=== PATIENT | female | born 1960 | race Caucasian/White ===

== ENCOUNTER 2016-10-23 12:29 | Observation (INO) | payer BC ==
[~2016-10-23] VITALS: Ht 154.9 cm; Wt 126.4 kg
[~2016-10-23 12:29] MED LIST: B-COTAB18 PO; CHOL100010 PO; DOCU100C31 PO; KRIL1000 PO; LEVO50TA6 PO; SERT1TAB88 PO; VITA100C4 PO
[2016-10-23] MEDS ORDERED: SODIUM CHLORIDE 0.9% 1000ML 1,000 ML IV STA (13:03)
[2016-10-23] MEDS ORDERED: ONDANSETRON INJ 2 MG/ML 2 ML VIAL IV STA ×2 (13:03→16:10)
[2016-10-23] MEDS ORDERED: NITROGLYCERIN 0.4 MG SL PER TAB CHARGE SL STA (13:03)
[2016-10-23] MEDS ORDERED: LORAZEPAM 2 MG/ML 1 ML VIAL IV STA (13:03)
[2016-10-23 13:28] LABS: BASO % 0.6 %; BASO ABS # 0.03 K/uL (0-0.2); COMPLETE YES; EOS % 4.1 %; HEMATOCRIT 38.3 % (37-47); IG% 0.4 %; LYMPH % 29.8 %; LYMPH ABS # 1.51 K/uL (1.2-3.4); MEAN CELL VOLUME 82.9 fL (80-100); MEAN CORPUSCULAR HEMOGLOBIN 28.1 pg (25-34); MEAN CORPUSCULAR HGB CONC 33.9 g/dl (32-36); MEAN PLATELET VOLUME 9.5 fL (7.4-10.4); MONO % 4.9 %; NEUT % 60.2 %; PLATELET COUNT 245 K/uL (130-400); RED BLOOD COUNT 4.62 M/uL (4.2-5.4); WHITE BLOOD COUNT 5.07 K/uL (4.8-10.8)
--- NOTE | 2016-10-23 13:37 | DIAGNOSTIC IMAGING REPORT ---
SINGLE VIEW CHEST CLINICAL HISTORY: Atypical chest pain. FINDINGS: An AP, portable, upright chest radiograph is compared to study dated 08/07/2016 and correlated with chest CT dated 07/06/2016. The examination is degraded by portable technique, apical lordotic positioning, and large body habitus. The cardiac silhouette is top normal for projection. The mediastinal contour is unremarkable. The lungs and pleural spaces are clear. Apparent increase in density at the lung bases is related to overlying breast tissue. No pneumothorax is seen. The bony thorax is grossly intact. Fusion hardware is partially seen in the lower cervical region. IMPRESSION: No active disease in the chest. Electronically signed by: Bulmaro Fraga M.D. 10/23/2016 1:36 PM
[2016-10-23 13:47] LABS: ALT/SGPT 26 U/L (12-78); AST/SGOT 14 U/L (15-37); BLOOD UREA NITROGEN 11 mg/dl (7-18); CALCIUM 8.6 mg/dl (8.5-10.1); CARBON DIOXIDE 30 mmol/L (21-32); CHLORIDE 104 mmol/L (98-107); CREATININE 0.76 mg/dl (0.60-1.20); GLUCOSE 103 mg/dl (70-99); POTASSIUM 3.8 mmol/L (3.5-5.1); SODIUM 140 mmol/L (136-145)
[2016-10-23 13:52] LABS: ALKALINE PHOSPHATASE 86 U/L (45-117); CKMB/CK RATIO 1.3 (0-3.0)
[2016-10-23] MEDS ORDERED: HYDROmorphone INJ 1 MG/ML SYR IV STA ×2 (14:02→16:10)
[2016-10-23] MEDS ORDERED: OPTIRAY 320 IV PRN (15:45)
--- NOTE | 2016-10-23 16:10 | DIAGNOSTIC IMAGING REPORT ---
CT ANGIOGRAM OF THE CHEST CLINICAL HISTORY: Atypical chest pain. COMPARISON STUDY: Chest CT scans dated 07/06/2016 and 07/31/2013. Chest x-ray dated 10/23/2016. Abdominal CT dated 01/04/2013. TECHNIQUE: Following the IV administration of 94 cc of Optiray 320, CT angiogram of the chest was performed from the upper abdomen to the thoracic inlet utilizing the pulmonary embolus protocol. Images are reviewed in the axial, sagittal, and coronal planes. 3-D MIPS images are created and assessed. IV contrast was administered without complication. CT DOSE: 715.38 mGy.cm FINDINGS: Thyroid: Atrophic. Thoracic aorta: The thoracic aorta is normal in caliber and demonstrates standard 3-vessel arch anatomy. No dissection is seen. Pulmonary vasculature: The pulmonary trunk is normal in caliber. There are no filling defects identified in main, lobar, or segmental pulmonary branches to suggest pulmonary embolus. Heart: The heart is normal in size and configuration, and without pericardial effusion. Lungs and pleural spaces: The lungs and pleural spaces are clear. Mediastinum: There is no mediastinal lymphadenopathy. Kati: Clear. Axillae: There is no axillary lymphadenopathy. Upper abdomen: There is a small hiatal hernia. A 1.8 cm retroperitoneal nodule posterior to the adrenal gland is unchanged from multiple prior studies dating back to 2012 and is of indeterminant significance. The liver appears steatotic. Skeletal structures: The skeletal structures are osteopenic. No lytic or blastic bony lesions are seen. Fusion hardware is partially imaged in the lower cervical spine. Mild degenerative changes noted in the thoracic spine. IMPRESSION: 1. There is no evidence of pulmonary embolus in the main, lobar, or segmental pulmonary arteries. 2. Note that the patient has had 18 CT scans of the chest at this institution since 2007 for similar symptoms with no evidence of pulmonary embolus. This should be taken into consideration in the future given cumulative radiation dosages. 3. There is no airspace consolidation or pleural effusion. 4. Additional findings as above. Electronically signed by: Bulmaro Fraga M.D. 10/23/2016 4:08 PM
--- NOTE | 2016-10-23 16:26 | EMERGENCY ROOM VISIT NOTE ---
History Report prepared by Macrina: Stew Boyd Under the Supervision of: Dr. Dequan Miller M.D. First contact with patient: 12:53 Chief Complaint: ABDOMINAL PAIN Stated Complaint: CHEST PRESSURE, ABD PAIN Nursing Triage Summary: Triage Note: Pt ambulatory to triage. pt reports mid back pain upper abd pain and chest pressure." pt reports pain since this am "i don't know what time i was up about 4am." pt reports shortness of breath. History of Present Illness The patient is a 56 year old female who presents to the Emergency Room with complaints of constant chest pain beginning this morning. She describes the pain as a feeling of "pressure". She states that her pain radiates into her abdomen and armpits. The patient has a history of anxiety and states that she took her anxiety medication last night. She has associated back pain, SOB, and nausea. She states that she woke up with her pain this morning. The patient has a history of similar symptoms in the past, but no specific cause was identified. She has no history of heart problems. Source of History: patient Onset: this morning Position: chest Quality: pressure Timing: constant Associated Symptoms: + SOB, + abdominal pain, + back pain, + nausea Review of Systems See HPI for pertinent positives & negatives. A total of 10 systems reviewed and were otherwise negative. Past Medical & Surgical Medical Problems: (1) Anxiety (2) Chest pain (3) Hypothyroidism (4) Spinal stenosis (5) Uterine artery ablation Surgical Problems: (1) History of carpal tunnel surgery of left wrist (2) History of carpal tunnel surgery of right wrist (3) S/P appendectomy (4) S/P cervical spinal fusion (5) S/P lumbar spinal fusion (6) S/P partial hysterectomy (7) S/P tubal ligation Family History Cancer Diabetes mellitus Heart disease Hypertension Lung disease Social History Smoking Status: Never Smoker Alcohol Use: none Drug Use: none Marital Status: Housing Status: lives with family Occupation Status: employed Current/Historical Medications Scheduled B-Complex Vitamins (Vitamin B Complex), 1 TAB PO DAILY Cholecalciferol (Vitamin D), 1,000 INTER.UNIT PO DAILY Clonazepam (Clonazepam), 0.5 MG PO HS Coenzyme Q10 (Ubidecarenone) (Co Q-10), 75 MG PO DAILY Krill Oil (Krill Oil), 1 CAP PO DAILY Levothyroxine Sodium (Levothyroxine Sodium), 50 MCG PO DAILY Tocopheryl Acet,Dl-Alpha (Vitamin E), 100 INTER.UNIT PO DAILY Scheduled PRN Acetaminophen (Tylenol), 1,000 MG PO Q6H PRN for Pain or Fever Diphenoxylate W/ Atropine (Lomotil), 1-2 TABS PO UD PRN for Diarrhea Docusate Sodium (Docusate Sodium), 200 MG PO BID PRN for Constipation Loratadine (Claritin), 10 MG PO DAILY PRN for Allergy Symptoms Saline ([place] Nasal [place]), 2 SPRAYS LAI DAILY PRN for Nasal Dryness Allergies Coded Allergies: Sulfa Antibiotics (Verified Allergy, Mild, UNKNOWN, 08/07/16) Diphenhydramine (Verified Allergy, Unknown, in IV form only, 08/07/16) Levofloxacin (Unverified Allergy, Unknown, RASH, 08/07/16) Quinolones (Verified Allergy, Unknown, 08/07/16) Wheat (Unverified Allergy, Unknown, adverse reaction, 08/07/16) Prednisone (Verified Adverse Reaction, Intermediate, PSYCH COMPLICATIONS, 08/07/16) Tramadol (Verified Adverse Reaction, Intermediate, "OUT OF BODY", 08/07/16 ) Physical Exam Vital Signs Date Time Temp Pulse Resp B/P Pulse Ox O2 Delivery O2 Flow Rate FiO2 10/23/16 17:04 85 13 98 10/23/16 17:01 94 Room Air 10/23/16 16:29 87 16 107/74 94 10/23/16 15:59 84 14 112/70 98 10/23/16 15:55 110/78 10/23/16 14:59 74 104/67 98 10/23/16 14:29 91 108/66 98 10/23/16 13:59 90 104/67 98 10/23/16 13:45 93 10/23/16 13:32 111/68 10/23/16 13:29 94 20 99 10/23/16 13:28 127/71 10/23/16 13:26 120/70 10/23/16 12:32 37.2 105 20 114/78 97 Room Air Physical Exam GENERAL: Patient is anxious appearing and in moderate distress. HEENT: No acute trauma, normocephalic atraumatic, mucous membranes moist, no nasal congestion, no scleral icterus. NECK: No stridor, no adenopathy, no meningismus, trachea is midline. LUNGS: No dyspnea. Clear to auscultation and equal bilaterally. No wheeze, no rhonchi. HEART: Regular rate and rhythm. No murmurs, rubs, gallops appreciated. ABDOMEN: Tenderness to palpation over the sternum and epigastrium. Soft, bowel sounds positive, no masses appreciated, no peritonitis. BACK: No midline tenderness, no CVA tenderness EXTREMITIES: Normal motion all extremities, no cyanosis, no edema. NEUROLOGIC: Alert and oriented, no acute motor or sensory deficits, no focal weakness, cranial nerves grossly intact. SKIN: No rash, no jaundice, no diaphoresis. Medical Decision & Procedures ER Provider Diagnostic Interpretation: X ray results and stated below per my interpretation and radiologist interpretation. Other radiology results and stated below per my review and radiologist interpretation: SINGLE VIEW CHEST FINDINGS: An AP, portable, upright chest radiograph is compared to study dated 08/07/2016 and correlated with chest CT dated 07/06/2016. The examination is degraded by portable technique, apical lordotic positioning, and large body habitus. The cardiac silhouette is top normal for projection. The mediastinal contour is unremarkable. The lungs and pleural spaces are clear. Apparent increase in density at the lung bases is related to overlying breast tissue. No pneumothorax is seen. The bony thorax is grossly intact. Fusion hardware is partially seen in the lower cervical region. IMPRESSION: No active disease in the chest. Electronically signed by: Bulmaro Fraga M.D. CT ANGIOGRAM OF THE CHEST FINDINGS: Thyroid: Atrophic. Thoracic aorta: The thoracic aorta is normal in caliber and demonstrates standard 3-vessel arch anatomy. No dissection is seen. Pulmonary vasculature: The pulmonary trunk is normal in caliber. There are no filling defects identified in main, lobar, or segmental pulmonary branches to suggest pulmonary embolus. Heart: The heart is normal in size and configuration, and without pericardial effusion. Lungs and pleural spaces: The lungs and pleural spaces are clear. Mediastinum: There is no mediastinal lymphadenopathy. Kati: Clear. Axillae: There is no axillary lymphadenopathy. Upper abdomen: There is a small hiatal hernia. A 1.8 cm retroperitoneal nodule posterior to the adrenal gland is unchanged from multiple prior studies dating back to 2012 and is of indeterminant significance. The liver appears steatotic. Skeletal structures: The skeletal structures are osteopenic. No lytic or blastic bony lesions are seen. Fusion hardware is partially imaged in the lower cervical spine. Mild degenerative changes noted in the thoracic spine. IMPRESSION: 1. There is no evidence of pulmonary embolus in the main, lobar, or segmental pulmonary arteries. 2. Note that the patient has had 18 CT scans of the chest at this institution since 2007 for similar symptoms with no evidence of pulmonary embolus. This should be taken into consideration in the future given cumulative radiation dosages. 3. There is no airspace consolidation or pleural effusion. 4. Additional findings as above. Electronically signed by: Bulmaro Fraga M.D. Laboratory Results 10/23/16 13:12 Red Blood Count 4.62, Mean Corpuscular Volume 82.9, Mean Corpuscular Hemoglobin 28.1, Mean Corpuscular Hemoglobin Concent 33.9, Mean Platelet Volume 9.5, Neutrophils (%) (Auto) 60.2, Lymphocytes (%) (Auto) 29.8, Monocytes (%) (Auto) 4.9, Eosinophils (%) (Auto) 4.1, Basophils (%) (Auto) 0.6, Neutrophils # (Auto) 3.05, Lymphocytes # (Auto) 1.51, Monocytes # (Auto) 0.25, Eosinophils # (Auto) 0.21, Basophils # (Auto) 0.03 10/23/16 13:12 Test 10/23/16 13:12 10/23/16 16:40 White Blood Count 5.07 K/uL (4.8-10.8) Red Blood Count 4.62 M/uL (4.2-5.4) Hemoglobin 13.0 g/dL (12.0-16.0) Hematocrit 38.3 % (37-47) Mean Corpuscular Volume 82.9 fL (80-100) Mean Corpuscular Hemoglobin 28.1 pg (25-34) Mean Corpuscular Hemoglobin Concent 33.9 g/dl (32-36) Platelet Count 245 K/uL (130-400) Mean Platelet Volume 9.5 fL (7.4-10.4) Neutrophils (%) (Auto) 60.2 % Lymphocytes (%) (Auto) 29.8 % Monocytes (%) (Auto) 4.9 % Eosinophils (%) (Auto) 4.1 % Basophils (%) (Auto) 0.6 % Neutrophils # (Auto) 3.05 K/uL (1.4-6.5) Lymphocytes # (Auto) 1.51 K/uL (1.2-3.4) Monocytes # (Auto) 0.25 K/uL (0.11-0.59) Eosinophils # (Auto) 0.21 K/uL (0-0.5) Basophils # (Auto) 0.03 K/uL (0-0.2) RDW Standard Deviation 42.6 fL (36.4-46.3) RDW Coefficient of Variation 14.2 % (11.5-14.5) Immature Granulocyte % (Auto) 0.4 % Immature Granulocyte # (Auto) 0.02 K/uL (0.00-0.02) Prothrombin Time 10.1 SECONDS (9.0-12.0) Prothromb Time International Ratio 0.9 (0.9-1.1) D-Dimer 890 ug/L FEU (0-500) Anion Gap 6.0 mmol/L (3-11) Est Creatinine Clear Calc Drug Dose 105.2 ml/min Estimated GFR () 102.3 Estimated GFR (Non- 88.3 BUN/Creatinine Ratio 14.0 (10-20) Calcium Level 8.6 mg/dl (8.5-10.1) Total Bilirubin 0.4 mg/dl (0.2-1) Direct Bilirubin < 0.1 mg/dl (0-0.2) Aspartate Amino Transf (AST/SGOT) 14 U/L (15-37) Alanine Aminotransferase (ALT/SGPT) 26 U/L (12-78) Alkaline Phosphatase 86 U/L (45-117) Total Creatine Kinase 53 U/L (26-192) Creatine Kinase MB 0.7 ng/ml (0.5-3.6) Creatine Kinase MB Ratio 1.3 (0-3.0) Troponin I < 0.015 ng/ml (0-0.045) Total Protein 7.9 gm/dl (6.4-8.2) Albumin 3.5 gm/dl (3.4-5.0) Lipase 193 U/L (73-393) Hepatitis C Antibody Screen NEG (NEG) Bedside Troponin I 0.000 ng/ml (0-0.045) Laboratory results as reviewed by me. Medications Administered Medications (Trade) Dose Ordered Sig/Abbi Route Start Time Stop Time Status Last Admin Dose Admin Nitroglycerin (Nitrostat Tab) 0.4 mg PRN STAT SL 10/23/16 13:03 10/23/16 13:05 DC 10/23/16 13:03 0.4 MG Lorazepam (Ativan Inj) 1 mg NOW STAT IV 10/23/16 13:03 10/23/16 13:05 DC 10/23/16 13:30 1 MG Ondansetron HCl 4 mg 4 mg NOW STAT IV 10/23/16 13:03 10/23/16 13:05 DC 10/23/16 13:30 4 MG Sodium Chloride (Nss 1000ml) 1,000 ml @ 999 mls/hr Q1H1M STAT IV 10/23/16 13:03 10/23/16 14:03 DC 10/23/16 13:03 999 MLS/HR Hydromorphone HCl (Dilaudid Inj) 1 mg NOW STAT IV 10/23/16 14:02 10/23/16 14:03 DC 10/23/16 14:06 1 MG Hydromorphone HCl (Dilaudid Inj) 1 mg NOW STAT IV 10/23/16 16:10 10/23/16 16:12 DC 10/23/16 16:10 1 MG Ondansetron HCl (Zofran Inj) 4 mg NOW STAT IV 10/23/16 16:10 10/23/16 16:12 DC 10/23/16 16:10 4 MG ECG Indication: chest pain Rate (beats per minute): 86 Rhythm: normal sinus Findings: no acute ischemic change, no ectopy ED Course 1257: The patient was evaluated in room A12. A complete history and physical exam was performed. 1303: Ordered NSS 1000 mL @ 999 mL/hr IV, Zofran 4 mg IV, Ativan 1 mg IV, Nitrostat Tab 0.4 mg SL. 1402: I checked in on the patient. Her chest pain is unchanged, but she has developed a headache. Ordered Dilaudid 1 mg IV. 1608: I reassessed the patient. Her chest pain has returned. She would not like any nitroglycerin for the pain as she believes it caused her headache. The patient states that she is willing to consider admission to the hospital. 1610: Ordered Zofran Inj 4 mg IV, Dilaudid Inj 1 mg IV. 1623: Upon reevaluation, the patient is resting comfortably. Discussed results and treatment plan with the patient. She verbalized understanding and agreement with the treatment plan. The patient will be evaluated for further management. Medical Decision Differential: Cholecystitis, Gallbladder disfunction, Hepatic Disfunction, Gastritis/PUD, Pancreatitis, ACS, Aortic Pathology, amongst other pathologies entertained. 56 yr old female arrives very uncomfortable and complaining of substernal chest pressure radiating to left arm and epigastrium. Continued intractable pain and with elevated Dimer I feel no other choice than to do CTPE even though she has had many CTs in past. CT unremarkable fortunately. Persistent pain though won' t take further nitro due to headache from it. I suspect this is not acs as she has multiple previous cardiac rule outs but with her comorbidities I do not feel it is reasonable to just send her home. EKG x 2 and Trop x 2 negative for ischemia here in ED. Abdomen is benign and I do not feel this is surgical abdominal in nature. No evidence of dissection. Consults Time Called: 162 Consulting Physician: Dr. Alegre [place] [place] Returned Call: 1623 Discussed the patient's case. The patient will be evaluated for further treatment and disposition. Impression Primary Impression: Substernal chest pain Additional Impressions: Nausea, Intractable pain Scribe Attestation The scribe's documentation has been prepared under my direction and personally reviewed by me in its entirety. I confirm that the note above accurately reflects all work, treatment, procedures, and medical decision making performed by me. Departure Information Dispostion Being Evaluated By Hospitalist Anali Vanessa (PCP) Patient Instructions A Signature Page, My [facility]
[2016-10-23 17:01] VITALS: O2SAT 94; Ht 154.9 cm; Wt 126.4 kg
[2016-10-23] MEDS ORDERED: ACETAMINOPHEN 325 MG TAB PO PRN (17:30)
[2016-10-23] MEDS ORDERED: ALUMINUM/MAGNESIUM/SIMETH (MAALOX MAX) 30 ML UDC PO PRN (17:30)
[2016-10-23 18:23] VITALS: BP 121/67; PULSE 81; TEMP 36.9; O2SAT 98
[2016-10-23 18:57] LABS: INR 0.9 (0.9-1.1); PROTHROMBIN TIME (PATIENT) 10.1 SECONDS (9.0-12.0)
[2016-10-23] MEDS: OXYCODONE/ACETAMINOPHEN 5-325 TAB PO PRN (20:34)
[2016-10-23] MEDS ORDERED: IV FLUIDS COMPLETED PRN (20:45)
[2016-10-23] MEDS ORDERED: CLONAZEPAM 0.5 MG TAB PO SCH (21:00)
[2016-10-23] MEDS ORDERED: ENOXAPARIN 40 MG/0.4 ML SYR SQ SCH (21:00)
[2016-10-23] MEDS ORDERED: NURSING VERBAL MED ORDER ONE (21:45)
[2016-10-23] MEDS: HYDROmorphone INJ 1 MG/ML SYR IV PRN (23:14)
--- NOTE | 2016-10-23 23:57 | HISTORY & PHYSICAL EXAMINATION ---
DATE OF ADMISSION: 10/23/2016 CHIEF COMPLAINT: Chest pain. HISTORY OF PRESENT ILLNESS: This 56-year-old female patient awoke this morning and had pain that was in her left chest, in her upper abdomen and radiated into her armpit. She does have a history of anxiety and took anxiety medication the previous night. She had not eaten yet this morning, just simply took her levothyroxine. She does have associated back pain, shortness of breath and nausea. The patient has had a history of similar symptoms in the past and no specific cause was identified. She has no history of heart problems and had been seen by cardiology. PAST MEDICAL HISTORY: Significant for anxiety, hypothyroidism, spinal stenosis. PAST SURGERIES: Include uterine artery ablation, carpal tunnel of the left, carpal tunnel of the right, appendectomy, cervical spinal fusion, lumbar spinal fusion, partial hysterectomy, tubal ligation. FAMILY HISTORY: Consistent with cancer, diabetes, heart disease, hypertension, lung disease. SOCIAL HISTORY: The patient is , lives with her . She is employed. Does not smoke, does not use alcohol, no illicit substances. CURRENT HOME MEDICATIONS: Include vitamin B, vitamin D, clonazepam 0.5 mg at bedtime, coenzyme Q10 75 mg daily, Krill oil 1 capsule daily, levothyroxine 50 mcg daily, vitamin E daily, Tylenol p.r.n., Lomotil p.r.n. diarrhea, docusate sodium p.r.n. constipation, Claritin 10 mg p.r.n. allergy symptoms and Morales-Sanchez nasal spray for nasal dryness. ALLERGIES: SHE HAS LISTED ALLERGIES TO SULFA, DIPHENHYDRAMINE, LEVOFLOXACIN, QUINOLONES, WHEAT, PREDNISONE AND TRAMADOL. REVIEW OF SYSTEMS: A complete 10-system review was performed, all of which were negative. I put positives in the HPI. PHYSICAL EXAMINATION: VITAL SIGNS: Temperature 37.2, pulse ranged from 74-105, respirations 16, blood pressure 114/78, pulse ox 97-99% on room air. GENERAL: The patient is awake, alert and oriented x3. The ER physician noted that she appeared anxious, but when I saw her, she was much more relaxed, had some relief of the pain. HEENT: TMs intact. No inflammation. Extraocular muscles intact. Pupils equal, round and react to light and accommodation. Mucous membranes moist. Throat is clear. NECK: No JVD or lymphadenopathy. LUNGS: Clear to auscultation bilaterally. No rales, rhonchi or wheezes. HEART: Regular, normal S1, S2, without murmurs, rubs or gallops. ABDOMEN: Soft, nontender, nondistended, positive bowel sounds. Over the sternum and epigastrium, I was able to elicit tenderness with palpation. EXTREMITIES: No clubbing, cyanosis or edema. NEUROLOGIC: Cranial nerves II-XII are grossly intact and nonfocal. SKIN: Show no rashes, no diaphoresis. PSYCHIATRIC: The patient is pleasant, cooperative, and again, did not show signs of anxiety as I was seeing her. IMAGING: A CT of the chest showed impression of: 1. There is no evidence of pulmonary embolus in the main, lobar or segmental pulmonary arteries. 2. Note that the patient has had 18 CT scans of the chest at this institution since 2007 for similar symptoms with no evidence of pulmonary embolus. This should be taken into consideration in the future given the cumulative radiation dosages. 3. There is no airspace consolidation or pleural effusion. 4. Additional findings noted above. Chest x-ray reveals no active disease in the chest. LABORATORY DATA: Sodium 140, potassium 3.8, chloride 104, CO2 30, BUN 11, creatinine 0.76. ALT of 14, AST of 26. Troponin was less than 0.015. Lipase 193. D-dimer was elevated at 890. INR of 0.9. White count 5.07, hemoglobin 13.0, hematocrit 38.3, platelet count of 245,000. Hep C screen was negative. ASSESSMENT: The patient is assessed as chest pain, rule out myocardial infarction, although this seems to be musculoskeletal in nature. PLAN: She is continued on appropriate home medications and given sublingual nitroglycerin, pain and nausea control, DVT prophylaxis in the form of subcu Lovenox, TEDs and SCDs. She is made 23-hour observation in that if her troponins remain negative and her symptoms resolve, she will be able to be discharged in the morning.
[2016-10-24] VITALS (7 sets, daily range): BP systolic 94–120; BP diastolic 54–68; PULSE 80–87; TEMP 36.8–37; O2SAT 96–98
[2016-10-24] MEDS: HYDROmorphone INJ 1 MG/ML SYR IV PRN ×2 (03:24→16:22)
[2016-10-24] MEDS: ONDANSETRON INJ 2 MG/ML 2 ML VIAL IV PRN ×2 (03:53→17:47)
[2016-10-24] MEDS ORDERED: LEVOTHYROXINE 50 MCG TAB PO SCH (06:30)
[2016-10-24] MEDS: OXYCODONE/ACETAMINOPHEN 5-325 TAB PO PRN (08:11)
[2016-10-24] MEDS ORDERED: PANTOprazole SOD 40 MG TAB PO SCH (09:00)
--- NOTE | 2016-10-24 13:25 | Pharmacy Progress Note ---
Enoxaparin Dosing Consult Date of Service: Oct 24, 2016. Pharmacy Dosing Scope Pharmacy is consulted to review the use of enoxaparin in a special risk patient population possibly prone to accumulate drug: elderly & to initiate recommend change in the setting of ordered THERAPEUTIC enoxaparin sub-q dosing therapy, order appropriate labs and adjust drug/dose/frequency. Subjective The patient is a 56 year old female admitted on Oct 23, 2016 at 17:18 for Chest Pain. Patient is currently on day # 2 of THERAPEUTIC enoxaparin sub-q for ACTIVE DVT/ PE. Pertinent PMH: hypertension, congestive heart failure, age > 75 years Objective Height (Feet): 5 Height (Inches): 1.00 Weight (Kilograms): 126.400 Laboratory Results: Last 72 Hours Test 10/23/16 13:12 Alanine Aminotransferase (ALT/SGPT) 26 U/L Aspartate Amino Transf (AST/SGOT) 14 U/L D-Dimer 890 ug/L FEU Direct Bilirubin < 0.1 mg/dl White Blood Count 5.07 K/uL Red Blood Count 4.62 M/uL Hemoglobin 13.0 g/dL Hematocrit 38.3 % Mean Corpuscular Volume 82.9 fL Mean Corpuscular Hemoglobin 28.1 pg Mean Corpuscular Hemoglobin Concent 33.9 g/dl Platelet Count 245 K/uL Mean Platelet Volume 9.5 fL Neutrophils (%) (Auto) 60.2 % Lymphocytes (%) (Auto) 29.8 % Monocytes (%) (Auto) 4.9 % Eosinophils (%) (Auto) 4.1 % Basophils (%) (Auto) 0.6 % Neutrophils # (Auto) 3.05 K/uL Lymphocytes # (Auto) 1.51 K/uL Monocytes # (Auto) 0.25 K/uL Eosinophils # (Auto) 0.21 K/uL Basophils # (Auto) 0.03 K/uL Prothromb Time International Ratio 0.9 Total Bilirubin 0.4 mg/dl Assessment & Plan Regarding THERAPEUTIC Enoxaparin: Continue enoxaparin 70 mg sub-q every 12 hours based on review of the following special population risk factors for drug accumulation: elderly or estimated creatinine clearance of 40 mL/min. Labs: * Will order Peak Anti-factor Xa level to be drawn 4 hours after 7 doses to better assess drug elimination & review potential for drug accumulation. Goal Peak Anti-factor Xa level = 0.5-1.0 IU/mL for therapeutic Lovenox 1 mg/kg. * Ongoing Labs (P&T Approved): CBC q 2 days x 2 weeks, serum creat q 2 days We will continue to monitor this patient and make adjustments as needed. Thank you.
[2016-10-24] MEDS ORDERED: SUMATRIPTAN SUCCINATE 6 MG/0.5 ML VIAL SQ ONE (13:30)
--- NOTE | 2016-10-24 14:00 | Hospitalist Progress Note ---
Hospitalist Progress Note Date of Service Oct 24, 2016. Subjective Pt evaluation today including: conversation w/ patient, conversation w/ family , physical exam, chart review, lab review, review of studies Patient is complaining of migraine headache today. She is not able to take anything orally due to a scheduled Hida scan this afternoon. Her troponin was negative x3. Additional Comments: A 10 system review was performed and all were negative. Positives were placed in the subjective section. Objective Vital Signs Date Time Temp Pulse Resp B/P Pulse Ox O2 Delivery O2 Flow Rate FiO2 10/24/16 11:36 36.9 84 18 94/54 97 Room Air 10/24/16 08:00 98 Room Air 10/24/16 07:19 36.9 87 18 120/64 98 Room Air 10/24/16 05:00 37.0 81 20 102/64 97 Room Air 10/24/16 04:58 Room Air 10/24/16 00:11 36.8 80 20 117/68 96 Room Air 10/24/16 00:00 Room Air 10/23/16 20:00 Room Air 10/23/16 18:23 36.9 81 18 121/67 98 Room Air 10/23/16 18:04 37.2 90 13 107/74 100 10/23/16 17:34 90 13 100 10/23/16 17:22 82 10/23/16 17:04 85 13 98 10/23/16 17:01 94 Room Air 10/23/16 16:29 87 16 107/74 94 10/23/16 15:59 84 14 112/70 98 10/23/16 15:55 110/78 10/23/16 14:59 74 104/67 98 10/23/16 14:29 91 108/66 98 10/23/16 13:59 90 104/67 98 Physical Exam Notes: GEN: Awake, alert, and oriented x 3. Not in acute distress HEENT: Tm's intact, no inflammation, EOMI, PERRLA, MMM Neck: Soft, supple Lungs: CTA b/l, no r/r/w Heart: REG, nrl S1S2 without murmurs, rubs or gallops Abdomen: Soft, NT, ND, + BS EXT: No C/C/E NEURO: CN's II-XII grossly intact, non-focal Skin: warm, dry, no rashes PSYCH: pleasant, cooperative. Laboratory Results Last 24 Hours Test 10/23/16 16:40 10/23/16 21:05 10/24/16 02:50 Bedside Troponin I 0.000 ng/ml Troponin I < 0.015 ng/ml < 0.015 ng/ml Assessment and Plan 1) Atypical chest pain - Mi was ruled out. It appeared to have musculoskeletal components. I ordered a Hida scan which is to be performed shortly. 2) Migraine headache - I ordered a single dose of Imitrex. 3) HTN - stable 120/64 4) Anxiety disorder 5) DVT prophylaxis - TEDs, SCDs, and sub-q Lovenox.
[2016-10-24] MEDS ORDERED: SINCALIDE INJ 2.5 MCG in SODIUM CHLORIDE 0.9% 100ML 100 ML IV SCH (14:15)
--- NOTE | 2016-10-24 16:30 | DIAGNOSTIC IMAGING REPORT ---
NUCLEAR MEDICINE HEPATOBILIARY STUDY WITH EJECTION FRACTION ANALYSIS. CLINICAL HISTORY: Epigastric pain. COMPARISON STUDY: Biliary ultrasound dated 07/06/2016 FINDINGS: The patient was injected with 5.6 mCi of technetium 99m Choletec. Anterior imaging was performed. The gallbladder was first visualized at 10 minute image. There was normal passage of activity into small bowel. At 1 hour, the patient was administered 2.5 mcg of sincalide utilizing a 30 minute infusion. The gallbladder ejection fraction was normal measuring 86%. IMPRESSION: Normal study. No evidence of cystic duct obstruction. Normal gallbladder ejection fraction of 86% Electronically signed by: Terrance Sanders M.D. 10/24/2016 4:29 PM
--- NOTE | 2016-10-24 17:17 | Discharge Instructions ---
Discharge Instructions Admission Reason for Admission: Chest Pain Discharge Discharge Diagnosis / Problem: Chest pain Discharge Goals Goal(s): Decrease discomfort Activity Recommendations Activity Limitations: resume your previous activity . Instructions / Follow-Up Instructions / Follow-Up PCP in 5-7 days. Current Hospital Diet Patient's current hospital diet: AHA Diet (Heart Healthy) Discharge Diet Recommended Diet: AHA Diet (Heart Healthy) Pending Studies Studies pending at discharge: no Medical Emergencies . Who to Call and When: Medical Emergencies: If at any time you feel your situation is an emergency, please call 911 immediately. . Non-Emergent Contact Non-Emergency issues call your: Primary Care Provider . . "Provider Documentation" section prepared by Antolin Alegre. VTE Core Measure Inpt VTE Proph given/why not?: Enoxaparin (Lovenox)DANIS, T.ESonam. Valarie, SCD's
--- NOTE | 2016-10-24 17:27 | Discharge Summary ---
Discharge Summary Admission Date: Oct 23, 2016 at 17:18 Discharge Date: Oct 24, 2016 Discharge Disposition: Home Principal Diagnosis: Chest pain Problems/Secondary Diagnoses: GERD, anxiety Immunizations: Have You Had Influenza Vaccine: Yes Influenza Vaccine Date: Aug 05, 2015 History of Tetanus Vaccine?: Yes Tetanus Immunization Date: Aug 18, 2010 History of Pneumococcal: Yes Pneumococcal Date: Jul 19, 2013 History of Hepatitis B Vaccine: Unknown Procedures: None. Consultations: None. Medication Reconciliation Continued Medications: Acetaminophen (Tylenol) 500 Mg Tab 1000 MG PO Q6H PRN for Pain or Fever, TAB B-Complex Vitamins (Vitamin B Complex) 1 Tab Tab 1 TAB PO DAILY Cholecalciferol (Vitamin D) 1,000 Inter.unit Tab 1000 INTER.UNIT PO DAILY, TAB Clonazepam (Clonazepam) 0.5 Mg Tab 0.5 MG PO HS Coenzyme Q10 (Ubidecarenone) (Co Q-10) 75 Mg Cap 75 MG PO DAILY, CAP Diphenoxylate W/ Atropine (Lomotil) 1 Tab Tab 1-2 TABS PO UD PRN for Diarrhea Take 2 tablets at onset of diarrhea then 1 tablet after each episode. Maximum 8 tablets/day. Docusate Sodium (Docusate Sodium) 100 Mg Cap 200 MG PO BID PRN for Constipation, CAP Krill Oil (Krill Oil) 1 Cap Cap 1 CAP PO DAILY Levothyroxine Sodium (Levothyroxine Sodium) 50 Mcg Tab 50 MCG PO DAILY Loratadine (Claritin) 10 Mg Tab 10 MG PO DAILY PRN for Allergy Symptoms Saline ([place] Nasal [place]) 0.65 % Spr 2 SPRAYS LAI DAILY PRN for Nasal Dryness Tocopheryl Acet,Dl-Alpha (Vitamin E) 100 Inter.unit Cap 100 INTER.UNIT PO DAILY, CAP Discharge Exam See my hospitalist progress note from this same date for the ROS and physical exam. Hospital Course The patient presented with chest pain that she had awoke with in the morning. Her d-dimer was elevated which prompted a CTA of the chest. No PE was noted. She was made 23hr obs to rule out IN. Her serial troponin were negative x3. I did order a Hida scan to evaluate for gallbladder dysfunction. Her gallbladder ejection fraction was 86%. She had no further chest pain and was discharged to home. 1) Atypical chest pain - Mi was ruled out. It appeared to have musculoskeletal components. I ordered a Hida scan which is to be performed shortly. DVT prophylaxis - TEDs, SCDs, and sub-q Lovenox. Total Time Spent: Greater than 30 minutes This includes examination of the patient, discharge planning, medication reconciliation, and communication with other providers. Discharge Instructions Please refer to the electronic Patient Visit Report (Discharge Instructions) for additional information. Follow-Up PCP in 5-7 days.
[2017-04-06] MEDS ORDERED: COEN75CA PO (08:24)
[2017-04-06] MEDS ORDERED: ATV5X PO (08:26)
[2017-04-06] MEDS ORDERED: DPH/ PO (09:07)
[2017-04-06] MEDS ORDERED: SALI0.6510 NAE (09:07)
[2017-04-06] MEDS ORDERED: CLR10 PO (09:07)
[2017-04-06] MEDS ORDERED: TYLOTC500 PO (12:15)
[2017-04-06] MEDS ORDERED: MULTTAB58 PO (12:19)
[2017-04-11] MEDS ORDERED: CEFD300C2 PO (08:27)
[2017-04-11] MEDS ORDERED: LCTXP PO (08:27)
[2017-05-13] MEDS ORDERED: DIPH50TA10 PO (14:15)
[2017-05-13] MEDS ORDERED: PROC1TAB5 PO (14:15)
[2017-05-13] MEDS ORDERED: DICL50TA3 PO (14:15)
[2017-07-14] MEDS ORDERED: TURM500T PO (14:14)
== END 2016-10-24 18:00 | disposition home or self-care (01) ==
LOC: ENRESERVTM → ENRESERVDT → C.EDB 12:30 → C.MED 17:18
PROVIDERS: ADMIT Hospitalist; ATTEND Hospitalist
DX: R07.89 Other chest pain (principal); K21.9 Gastro-esophageal reflux disease without esophagitis; F41.9 Anxiety disorder, unspecified; R79.1 Abnormal coagulation profile; G43.909 Migraine, unspecified, not intractable, without status migrainosus; I10 Essential (primary) hypertension; E03.9 Hypothyroidism, unspecified; Z51.81 Encounter for therapeutic drug level monitoring; Z79.899 Other long term (current) drug therapy

== ENCOUNTER 2017-02-08 09:21 | Emergency (ER) | payer BC ==
[~2017-02-08] VITALS: Ht 154.9 cm; Wt 128.8 kg
[~2017-02-08 09:21] MED LIST changes: -SERT1TAB88 PO
[2017-02-08 09:32] VITALS: TEMP 36.9; Ht 154.9 cm; Wt 128.8 kg
[2017-02-08] MEDS ORDERED: ONDANSETRON INJ 2 MG/ML 2 ML VIAL IV STA (09:47)
[2017-02-08] MEDS ORDERED: MoRPHine SULFATE 4 MG/ML 1 ML CARP\\VIAL IV STA (09:47)
--- NOTE | 2017-02-08 09:54 | EMERGENCY ROOM VISIT NOTE ---
History Report prepared by Macrina: Beryl Mejia Under the Supervision of: Dr. Emery Choi M.D. First contact with patient: 09:37 Chief Complaint: SHORTNESS OF BREATH Stated Complaint: SOB, PAIN UNDER BACK RIBS, FEVER, ABD. PAIN, PALPI History of Present Illness The patient is a 56 year old female who presents to the Emergency Room with complaints of persistent right upper quadrant abdominal pain that began a few days ago. She currently rates her discomfort as an 8/10 in severity. The patient states that she developed the abdominal pain a few days ago and additionally notes right sided back pain. She additionally associates rib pain and states that her body feels swollen. The patient denies any recent fall or trauma. She associates palpitations, shortness of breath, and an intermittent subjective fever with her symptoms today. The patient denies any history of heart problems or blood clots. She denies being on any blood thinners. The patient denies any cough, chest pain, hematuria, vaginal bleeding, or vaginal discharge. Source of History: patient, spouse/significant other Onset: few days ago Position: abdomen (RUQ) Symptom Intensity: 8/10 Timing: other (persistent) Associated Symptoms: + SOB, + back pain, No chest pain, No cough, No urinary symptoms Note: Associated Symptoms: rib pain, palpitations Review of Systems See HPI for pertinent positives & negatives. A total of 10 systems reviewed and were otherwise negative. Past Medical & Surgical Medical Problems: (1) Anxiety (2) Chest pain (3) Hypothyroidism (4) Spinal stenosis (5) Uterine artery ablation Surgical Problems: (1) History of carpal tunnel surgery of left wrist (2) History of carpal tunnel surgery of right wrist (3) S/P appendectomy (4) S/P cervical spinal fusion (5) S/P lumbar spinal fusion (6) S/P partial hysterectomy (7) S/P tubal ligation Old medical records were reviewed. Nurse's notes were reviewed and I agree with. Family History Cancer Diabetes mellitus Heart disease Hypertension Lung disease Social History Smoking Status: Never Smoker Alcohol Use: none Drug Use: none Marital Status: Housing Status: lives with family Occupation Status: employed Current/Historical Medications Scheduled Clonazepam (Clonazepam), 0.5 MG PO HS Coenzyme Q10 (Ubidecarenone) (Co Q-10), 75 MG PO DAILY Levothyroxine Sodium (Levothyroxine Sodium), 50 MCG PO DAILY Multiple Vitamin (Multivitamin), 1 TAB PO DAILY Ondasetron Odt (Zofran Odt), 4 MG SL Q6H Scheduled PRN Acetaminophen (Tylenol), 1,000 MG PO Q6H PRN for Pain or Fever Diphenoxylate W/ Atropine (Lomotil), 1-2 TABS PO UD PRN for Diarrhea Docusate Sodium (Docusate Sodium), 200 MG PO BID PRN for Constipation Loratadine (Claritin), 10 MG PO DAILY PRN for Allergy Symptoms Saline ([place] Nasal [place]), 2 SPRAYS LAI DAILY PRN for Nasal Dryness Allergies Coded Allergies: Sulfa Antibiotics (Verified Allergy, Mild, UNKNOWN, 02/08/17) Diphenhydramine (Verified Allergy, Unknown, in IV form only, 02/08/17) Levofloxacin (Unverified Allergy, Unknown, RASH, 02/08/17) Quinolones (Verified Allergy, Unknown, 02/08/17) Wheat (Unverified Allergy, Unknown, adverse reaction, 02/08/17) Prednisone (Verified Adverse Reaction, Intermediate, PSYCH COMPLICATIONS, 02/08/17) Tramadol (Verified Adverse Reaction, Intermediate, "OUT OF BODY", 02/08/17) Physical Exam Vital Signs Date Time Temp Pulse Resp B/P Pulse Ox O2 Delivery O2 Flow Rate FiO2 02/08/17 13:36 89 20 101/53 98 Room Air 02/08/17 11:11 86 18 128/73 99 Room Air 02/08/17 10:34 79 16 128/96 99 Room Air 02/08/17 09:32 36.9 87 20 120/76 100 Room Air Physical Exam General: Well developed well nourished, non-ill appearing middle aged female, in no acute distress, breathing comfortably on room air. Normal speech HEENT: Normal cephalic atraumatic. Pupils are equal round and reactive to light. Extraocular movements are intact. Oropharynx is pink with moist mucous membranes. No swelling of the mouth lips or tongue. Neck: Supple with a midline trachea. No meningeal signs or stiffness, no JVD or bruits. No Stridor. Chest: Clear to auscultation bilaterally. No wheezes or rhonchi. No increased work of breathing. Heart: regular rate and rhythm. Abdomen: Mildly tender in the right upper quadrant. Soft, nondistended without rebound guarding or rigidity. Extremities: No cyanosis clubbing or edema. No calf tenderness or assymetry Spine/Back. Moderately tender in lower back bilaterally. Skin: Good turgor without rashes. Neurologic exam: Cranial nerves two through 12 are intact. Motor and sensation are intact and symmetrical throughout. Medical Decision & Procedures ER Provider Diagnostic Interpretation: Radiology results as stated below per my review and radiologist interpretation: RENAL ULTRASOUND HISTORY: eval for right flank pain COMPARISON: Abdominal ultrasound 07/06/2016. FINDINGS: Right kidney: 12.6 cm. No hydronephrosis. Mild cortical renal thinning. A 2.1 cm parapelvic cyst. Left kidney: 12.7 cm. No hydronephrosis. Mild cortical renal thinning. A few small peripelvic cysts. Bladder: No bladder wall thickening. The bilateral ureteral jets were identified. IMPRESSION: No hydronephrosis. Small peripelvic cysts. Electronically signed by: Ernst Arredondo M.D. 02/08/2017 11:46 AM Dictated Date/Time: 02/08/2017 11:43 AM BILIARY ULTRASOUND CLINICAL HISTORY: Right-sided abdominal pain COMPARISON STUDY: 07/06/2016 FINDINGS: The pancreas appears sonographically normal. There is no right-sided hydronephrosis. The gallbladder appears sonographically normal. There is no ductal dilatation. The common bile duct measures 6 mm. No focal hepatic masses are visualized. There is borderline increase in hepatic echogenicity. IMPRESSION: 1. Borderline increase in hepatic echogenicity, possibly indicating hepatic steatosis 2. Ultrasonographically normal gallbladder and pancreas. No evidence of ductal dilatation. Electronically signed by: Terrance Sanders M.D. 02/08/2017 11:43 AM Dictated Date/Time: 02/08/2017 11:41 AM SINGLE VIEW CHEST CLINICAL HISTORY: Atypical chest pain. FINDINGS: An AP, portable, upright chest radiograph is compared to chest x-ray and chest CT dated 10/23/2016. The examination is degraded by portable technique, large body habitus, and apical lordotic positioning. The heart is top normal for projection. The pulmonary basilar culture is noncongested. There is mild dependent atelectasis. The lungs and pleural spaces are otherwise clear. No pneumothorax is seen. The bony thorax is grossly intact. Fusion hardware is noted in the lower cervical spine. IMPRESSION: No active disease in the chest. Electronically signed by: Bulmaro Fraga M.D. 02/08/2017 10:01 AM Dictated Date/Time: 02/08/2017 9:59 AM Laboratory Results 02/08/17 10:52 Red Blood Count 4.65, Mean Corpuscular Volume 84.7, Mean Corpuscular Hemoglobin 28.2, Mean Corpuscular Hemoglobin Concent 33.2, Mean Platelet Volume 9.6, Neutrophils (%) (Auto) 58.7, Lymphocytes (%) (Auto) 32.3, Monocytes (%) (Auto) 4.4, Eosinophils (%) (Auto) 3.6, Basophils (%) (Auto) 0.8, Neutrophils # (Auto) 3.10, Lymphocytes # (Auto) 1.70, Monocytes # (Auto) 0.23, Eosinophils # (Auto) 0.19, Basophils # (Auto) 0.04 02/08/17 10:52 Test 02/08/17 10:35 02/08/17 10:52 02/08/17 11:06 Urine Color YELLOW Urine Appearance CLEAR (CLEAR) Urine pH 8.0 (4.5-7.5) Urine Specific [place] 1.022 (1.000-1.030) Urine Protein NEG (NEG) Urine Glucose (UA) NEG (NEG) Urine Ketones NEG (NEG) Urine Occult Blood NEG (NEG) Urine Nitrite NEG (NEG) Urine Bilirubin NEG (NEG) Urine Urobilinogen NEG (NEG) Urine Leukocyte Esterase NEG (NEG) White Blood Count 5.27 K/uL (4.8-10.8) Red Blood Count 4.65 M/uL (4.2-5.4) Hemoglobin 13.1 g/dL (12.0-16.0) Hematocrit 39.4 % (37-47) Mean Corpuscular Volume 84.7 fL (80-100) Mean Corpuscular Hemoglobin 28.2 pg (25-34) Mean Corpuscular Hemoglobin Concent 33.2 g/dl (32-36) Platelet Count 218 K/uL (130-400) Mean Platelet Volume 9.6 fL (7.4-10.4) Neutrophils (%) (Auto) 58.7 % Lymphocytes (%) (Auto) 32.3 % Monocytes (%) (Auto) 4.4 % Eosinophils (%) (Auto) 3.6 % Basophils (%) (Auto) 0.8 % Neutrophils # (Auto) 3.10 K/uL (1.4-6.5) Lymphocytes # (Auto) 1.70 K/uL (1.2-3.4) Monocytes # (Auto) 0.23 K/uL (0.11-0.59) Eosinophils # (Auto) 0.19 K/uL (0-0.5) Basophils # (Auto) 0.04 K/uL (0-0.2) RDW Standard Deviation 43.7 fL (36.4-46.3) RDW Coefficient of Variation 14.3 % (11.5-14.5) Immature Granulocyte % (Auto) 0.2 % Immature Granulocyte # (Auto) 0.01 K/uL (0.00-0.02) Anion Gap 6.0 mmol/L (3-11) Est Creatinine Clear Calc Drug Dose 103.1 ml/min Estimated GFR () 99.2 Estimated GFR (Non- 85.6 BUN/Creatinine Ratio 15.5 (10-20) Calcium Level 8.7 mg/dl (8.5-10.1) Total Bilirubin 0.6 mg/dl (0.2-1) Direct Bilirubin 0.1 mg/dl (0-0.2) Aspartate Amino Transf (AST/SGOT) 17 U/L (15-37) Alanine Aminotransferase (ALT/SGPT) 27 U/L (12-78) Alkaline Phosphatase 80 U/L (45-117) Total Protein 7.6 gm/dl (6.4-8.2) Albumin 3.5 gm/dl (3.4-5.0) Lipase 139 U/L (73-393) Thyroid Stimulating Hormone (TSH) 3.340 uIu/ml (0.300-4.500) Bedside Troponin I 0.000 ng/ml (0-0.045) GX-Qcu-V-Type Natriuretic Peptide 45 pg/ml (0-900) Laboratory studies as stated above per my review. Medications Administered Medications (Trade) Dose Ordered Sig/Abbi Route Start Time Stop Time Status Last Admin Dose Admin Morphine Sulfate (MoRPHine SULFATE INJ) 4 mg NOW STAT IV 02/08/17 09:47 02/08/17 09:50 DC 02/08/17 10:32 4 MG Ondansetron HCl (Zofran Inj) 4 mg NOW STAT IV 02/08/17 09:47 02/08/17 09:50 DC 02/08/17 10:32 4 MG Ketorolac Tromethamine (Toradol Inj) 30 mg NOW STAT IV 02/08/17 13:48 02/08/17 13:49 DC 02/08/17 14:03 30 MG ECG Rate (beats per minute): 79 Rhythm: normal sinus Findings: no acute ischemic change, no ectopy Comparison ECG Date: 10/23/16 Change: no significant change ED Course 0938: Past medical records reviewed. The patient was evaluated in room B3B, and a complete history and physical examination were performed. 0947: Ordered Zofran Inj 4 mg IV, Morphine Sulfate 4 mg IV. 1118: I reevaluated the patient and she is getting ready for her ultrasound. 1345: I reevaluated the patient and she is feeling better. I discussed the exam findings with her and I discussed the treatment plan. She verbalized complete understanding and agreement. She is ready to go home. 1348: Ordered Toradol inj 30 mg IV. Medical Decision Differentials include, but are not limited to; gallbladder disease, musculoskeletal pain, cardiac disease, CHF, kidney stone, infection, electrolyte or metabolic abnormality. This patient comes in as described above. She has abdominal pain radiating to her back most in the right flank. She denies chest pain she has some shortness breath with the pain but no pleurisy. She looks well on exam. She is complaining that she feels swollen. IV access established, multiple blood tests was obtained . EKG does not suggest acute coronary syndrome or arrhythmia. Chest x-ray does not suggest congestive heart failure, pneumonia, pneumothorax. BNP is also normal. Cardiac enzymes are normal. She has no acute electrolyte or metabolic abnormalities. Ultrasound the gallbladder and kidneys are unremarkable. Her urinalysis was unremarkable. She's had nothing to suggest nephrotic syndrome or infection. She was given IV morphine as well as IV Zofran as feeling better she was given IV Toradol as well. She will be discharged home. She will return if: increasing pain, worsening of symptoms, fever or chills, any new problems or concerns. She's happy with the plan and discharged to home.. Impression Primary Impression: Shortness of breath Additional Impression: Diffuse abdominal pain Scribe Attestation The scribe's documentation has been prepared under my direction and personally reviewed by me in its entirety. I confirm that the note above accurately reflects all work, treatment, procedures, and medical decision making performed by me. Departure Information Dispostion Home / Self-Care Prescriptions Ondasetron Odt (ZOFRAN ODT) 4 Mg Tab 4 MG SL Q6H for Nausea, #10 TAB Prov: Emery Choi M.D. 02/08/17 Referrals Anali Mathias (PCP) Forms HOME CARE DOCUMENTATION FORM, IMPORTANT VISIT INFORMATION Patient Instructions My [facility] Additional Instructions Rest. Drink plenty of fluids. Use ibuprofen 400 mg every 6 hours, take with food For nausea may use Zofran 4 mg under the tongue every 8 hours as needed. Return if: Worsening of symptoms, shortness of breath, fever or chills, any new problems or concerns Problem Qualifiers
--- NOTE | 2017-02-08 10:03 | DIAGNOSTIC IMAGING REPORT ---
SINGLE VIEW CHEST CLINICAL HISTORY: Atypical chest pain. FINDINGS: An AP, portable, upright chest radiograph is compared to chest x-ray and chest CT dated 10/23/2016. The examination is degraded by portable technique, large body habitus, and apical lordotic positioning. The heart is top normal for projection. The pulmonary basilar culture is noncongested. There is mild dependent atelectasis. The lungs and pleural spaces are otherwise clear. No pneumothorax is seen. The bony thorax is grossly intact. Fusion hardware is noted in the lower cervical spine. IMPRESSION: No active disease in the chest. Electronically signed by: Bulmaro Fraga M.D. 02/08/2017 10:01 AM Dictated Date/Time: 02/08/2017 9:59 AM
[2017-02-08 11:02] LABS: URINE APPEARANCE CLEAR (CLEAR); URINE BILIRUBIN NEG (NEG); URINE COLOR YELLOW; URINE NITRITE NEG (NEG); URINE SPECIFIC GRAVITY 1.022 (1.000-1.030); UROBILINOGEN NEG (NEG)
[2017-02-08 11:04] LABS: MANUAL MICROSCOPIC REQUIRED? NO; REVIEW REQ? NO
[2017-02-08 11:23] LABS: BASO % 0.8 %; BASO ABS # 0.04 K/uL (0-0.2); COMPLETE YES; EOS % 3.6 %; HEMATOCRIT 39.4 % (37-47); IG% 0.2 %; LYMPH % 32.3 %; MEAN CELL VOLUME 84.7 fL (80-100); MEAN CORPUSCULAR HEMOGLOBIN 28.2 pg (25-34); MEAN CORPUSCULAR HGB CONC 33.2 g/dl (32-36); MEAN PLATELET VOLUME 9.6 fL (7.4-10.4); MONO % 4.4 %; NEUT % 58.7 %; PLATELET COUNT 218 K/uL (130-400); RED BLOOD COUNT 4.65 M/uL (4.2-5.4); WHITE BLOOD COUNT 5.27 K/uL (4.8-10.8)
--- NOTE | 2017-02-08 11:45 | DIAGNOSTIC IMAGING REPORT ---
BILIARY ULTRASOUND CLINICAL HISTORY: Right-sided abdominal pain COMPARISON STUDY: 07/06/2016 FINDINGS: The pancreas appears sonographically normal. There is no right-sided hydronephrosis. The gallbladder appears sonographically normal. There is no ductal dilatation. The common bile duct measures 6 mm. No focal hepatic masses are visualized. There is borderline increase in hepatic echogenicity. IMPRESSION: 1. Borderline increase in hepatic echogenicity, possibly indicating hepatic steatosis 2. Ultrasonographically normal gallbladder and pancreas. No evidence of ductal dilatation. Electronically signed by: Terrance Sanders M.D. 02/08/2017 11:43 AM Dictated Date/Time: 02/08/2017 11:41 AM
--- NOTE | 2017-02-08 11:48 | DIAGNOSTIC IMAGING REPORT ---
RENAL ULTRASOUND HISTORY: eval for right flank pain COMPARISON: Abdominal ultrasound 07/06/2016. FINDINGS: Right kidney: 12.6 cm. No hydronephrosis. Mild cortical renal thinning. A 2.1 cm parapelvic cyst. Left kidney: 12.7 cm. No hydronephrosis. Mild cortical renal thinning. A few small peripelvic cysts. Bladder: No bladder wall thickening. The bilateral ureteral jets were identified. IMPRESSION: No hydronephrosis. Small peripelvic cysts. Electronically signed by: Ernst Arredondo M.D. 02/08/2017 11:46 AM Dictated Date/Time: 02/08/2017 11:43 AM
[2017-02-08 11:49] LABS: BUN/CREATININE RATIO 15.5 (10-20); CALCIUM 8.7 mg/dl (8.5-10.1); CREATININE 0.78 mg/dl (0.60-1.20); POTASSIUM 3.9 mmol/L (3.5-5.1)
[2017-02-08 11:59] LABS: THYROID STIMULATING HORMONE 3.34 uIu/ml (0.300-4.500)
[2017-02-08 13:36] VITALS: BP 101/53; PULSE 89; O2SAT 98
[2017-02-08] MEDS ORDERED: KETOROLAC TROMETHAMINE 30 MG/ML VIAL IV STA (13:48)
[2017-02-08] MEDS ORDERED: ONDA4TAB10 SL (13:51)
[2017-04-06] MEDS ORDERED: COEN75CA PO (08:24)
[2017-04-06] MEDS ORDERED: ATV5X PO (08:26)
[2017-04-06] MEDS ORDERED: CLR10 PO (09:07)
[2017-04-06] MEDS ORDERED: SALI0.6510 NAE (09:07)
[2017-04-06] MEDS ORDERED: DPH/ PO (09:07)
[2017-04-06] MEDS ORDERED: TYLOTC500 PO (12:15)
[2017-04-06] MEDS ORDERED: MULTTAB58 PO (12:19)
[2017-04-11] MEDS ORDERED: LCTXP PO (08:27)
[2017-04-11] MEDS ORDERED: CEFD300C2 PO (08:27)
[2017-05-13] MEDS ORDERED: DICL50TA3 PO (14:15)
[2017-05-13] MEDS ORDERED: PROC1TAB5 PO (14:15)
[2017-05-13] MEDS ORDERED: DIPH50TA10 PO (14:15)
[2017-07-14] MEDS ORDERED: TURM500T PO (14:14)
== END 2017-02-08 14:00 | disposition home or self-care (01) ==
LOC: C.EDB 09:22
DX: R06.02 Shortness of breath (principal); R10.10 Upper abdominal pain, unspecified; F41.9 Anxiety disorder, unspecified; E03.9 Hypothyroidism, unspecified; Z98.1 Arthrodesis status; Z90.710 Acquired absence of both cervix and uterus; Z98.51 Tubal ligation status; Z80.9 Family history of malignant neoplasm, unspecified; Z83.3 Family history of diabetes mellitus; Z82.49 Family history of ischemic heart disease and other diseases of the circulatory system; Z79.899 Other long term (current) drug therapy

== ENCOUNTER 2017-03-17 07:24 | Emergency (ER) | payer BC ==
[~2017-03-17] VITALS: Ht 154.9 cm; Wt 130.1 kg
[~2017-03-17 07:24] MED LIST changes: -B-COTAB18 PO; -CHOL100010 PO; -KRIL1000 PO; +ONDA4TAB10 SL; -VITA100C4 PO
[2017-03-17 07:27] VITALS: TEMP 36.7; Ht 154.9 cm; Wt 130.1 kg
--- NOTE | 2017-03-17 07:42 | EMERGENCY ROOM VISIT NOTE ---
History First contact with patient: 07:34 Chief Complaint: CARDIAC ASSESSMENT Stated Complaint: CHEST PRESSURE,LEGS SWOLLEN,SOB Nursing Triage Summary: pt reports BLE edema starting last evening , then this AM awoke with chest pressure midsternal and exertional sob History of Present Illness The patient is a 56 year old female who presents to the Emergency Room with complaints of chest pain that started at approximately 5:30 this morning. She describes the pain as pressure, constant, does not radiate, 8/10. She did not try anything for the pain. Associated symptoms of nausea. She also states last night that her legs came swollen, and she has pain in both of her calves. She states she gets this once in a while, swelling usually goes down with elevation. She also states a history of this type chest pain many times in the past, states she has had a "complete cardiac workup, gallbladder workup, and nobody seems to know what's wrong with me." She has no past medical history of cardiac disease, OK, PE/DVT, or heart failure. She denies any shortness of breath, STALLWORTH, vomiting, dizziness or syncope, fever/chills, urinary symptoms. Review of Systems GENERAL: Denies fevers, chills, malaise, fatigue, unintentional weight changes. HEENT: Denies dizziness, visual problems, hearing loss, tinnitus. Denies difficulty swallowing or oral lesions. PULMONARY: + SOB. Denies cough, sputum production or hemoptysis. CARDIOVASCULAR: + Chest pain, peripheral edema. Denies palpitations, dyspnea on exertion, orthopnea. GASTROINTESTINAL: Denies diarrhea, constipation, nausea, vomiting, or abdominal pain. GENITOURINARY: Denies dysuria, frequency, urgency or nocturia. NEUROLOGIC: Denies history of epilepsy, CVA, TIA or chronic headaches. MUSCULOSKELETAL: Denies history of joint tenderness/swelling. SKIN: Denies rashes or lesions. PSYCHIATRIC: Denies history of depression or mental illness. ENDOCRINE: Denies history of diabetes, thyroid disorders, abnormal hair growth or sexual dysfunction. Past Medical/Surgical History Medical Problems: (1) Anxiety (2) Chest pain (3) Hypothyroidism (4) Spinal stenosis (5) Uterine artery ablation Surgical Problems: (1) History of carpal tunnel surgery of left wrist (2) History of carpal tunnel surgery of right wrist (3) S/P appendectomy (4) S/P cervical spinal fusion (5) S/P lumbar spinal fusion (6) S/P partial hysterectomy (7) S/P tubal ligation Family History Cancer Diabetes mellitus Heart disease Hypertension Lung disease Social History Smoking Status: Never Smoker Alcohol Use: none Drug Use: none Marital Status: Housing Status: lives with family Occupation Status: employed Current/Historical Medications Scheduled Clonazepam (Clonazepam), 0.5 MG PO HS Coenzyme Q10 (Ubidecarenone) (Co Q-10), 75 MG PO DAILY Levothyroxine Sodium (Synthroid), 1.5 TAB PO DAILY Multiple Vitamin (Multivitamin), 1 TAB PO DAILY Nystatin (Topical) (Nystatin), 1 APPLN TOP TID Ondasetron Odt (Zofran Odt), 4 MG SL Q6H Scheduled PRN Acetaminophen (Tylenol), 1,000 MG PO Q6H PRN for Pain or Fever Diphenoxylate W/ Atropine (Lomotil), 1-2 TABS PO UD PRN for Diarrhea Loratadine (Claritin), 10 MG PO DAILY PRN for Allergy Symptoms Lorazepam (Lorazepam), 0.5 MG PO DAILY PRN for Anxiety Saline ([place] Nasal [place]), 2 SPRAYS LAI DAILY PRN for Nasal Dryness Allergies Coded Allergies: Sulfa Antibiotics (Verified Allergy, Mild, UNKNOWN, 02/08/17) Diphenhydramine (Verified Allergy, Unknown, in IV form only, 02/08/17) Levofloxacin (Unverified Allergy, Unknown, RASH, 02/08/17) Quinolones (Verified Allergy, Unknown, 02/08/17) Wheat (Unverified Allergy, Unknown, adverse reaction, 02/08/17) Prednisone (Verified Adverse Reaction, Intermediate, PSYCH COMPLICATIONS, 02/08/17) Tramadol (Verified Adverse Reaction, Intermediate, "OUT OF BODY", 02/08/17) Physical Exam Vital Signs Date Time Temp Pulse Resp B/P Pulse Ox O2 Delivery O2 Flow Rate FiO2 03/17/17 13:07 79 18 119/71 98 03/17/17 12:14 83 18 115/68 99 Room Air 03/17/17 10:54 80 18 111/67 97 Room Air 03/17/17 10:48 85 03/17/17 09:48 78 20 112/67 100 Room Air 03/17/17 08:53 99 Nasal Cannula 2.0 03/17/17 08:23 84 20 111/81 95 03/17/17 07:49 91 03/17/17 07:44 99 Room Air 03/17/17 07:27 36.7 92 18 132/80 98 Room Air Physical Exam CONSTITUTIONAL: No acute distress. Well appearing and well nourished. Obese. Alert and oriented X 4 with normal affect. HEENT: Normocephalic, atraumatic. Pupils equal, round and reactive to light, EOMI. TMs normal. Pharynx normal. Moist mucus membranes. NECK: Supple, full active range of motion without discomfort. RESPIRATORY: Clear to auscultation bilaterally with no wheezing, crackles, rhonchi or stridor. Equal expansion bilaterally. CARDIOVASCULAR: Regular rate and rhythm with no murmurs, rubs or gallops. Normal peripheral perfusion. No pitting edema. GASTROINTESTINAL: Soft, nontender, nondistended. Bowel sounds present in all quadrants. MUSCULOSKELETAL: Full range of motion of all joints without discomfort. INTEGUMENTARY: There is mild erythema and excoriation along the fold of the pannus, not ttp or malodorous, appears consistent with yeast infection. NEUROLOGIC: Cranial nerves II-XII grossly intact. No focal neurologic deficits noted. Normal sensation, motor, coordination, gait. Medical Decision & Procedures ER Provider Diagnostic Interpretation: CHEST ONE VIEW PORTABLE CLINICAL HISTORY: CHEST PAIN dyspnea COMPARISON STUDY: 02/09/2020 1017 FINDINGS: Mild stable cardiomegaly. Mild fullness the pulmonary vasculature. Diaphragms are smooth. IMPRESSION: Pulmonary vascular congestion. Otherwise negative study. ------ [~ rep ct add3]] BILATERAL LOWER EXTREMITY VENOUS DOPPLER HISTORY: BLE swelling, pain, eval DVT COMPARISON STUDY: None. FINDINGS: There is normal compressibility, flow, and augmentation within the bilateral lower extremity deep venous systems. Right inguinal lymph nodes measure subcentimeter in short axis diameter. IMPRESSION: No DVT within the right or left lower extremity. Laboratory Results 03/17/17 08:15 Red Blood Count 4.41, Mean Corpuscular Volume 83.9, Mean Corpuscular Hemoglobin 27.9, Mean Corpuscular Hemoglobin Concent 33.2, Mean Platelet Volume 9.0, Neutrophils (%) (Auto) 58.3, Lymphocytes (%) (Auto) 30.5, Monocytes (%) (Auto) 6.8, Eosinophils (%) (Auto) 3.6, Basophils (%) (Auto) 0.4, Neutrophils # (Auto) 2.93, Lymphocytes # (Auto) 1.53, Monocytes # (Auto) 0.34, Eosinophils # (Auto) 0.18, Basophils # (Auto) 0.02 03/17/17 08:15 Test 03/17/17 08:15 03/17/17 12:08 White Blood Count 5.02 K/uL (4.8-10.8) Red Blood Count 4.41 M/uL (4.2-5.4) Hemoglobin 12.3 g/dL (12.0-16.0) Hematocrit 37.0 % (37-47) Mean Corpuscular Volume 83.9 fL (80-100) Mean Corpuscular Hemoglobin 27.9 pg (25-34) Mean Corpuscular Hemoglobin Concent 33.2 g/dl (32-36) Platelet Count 211 K/uL (130-400) Mean Platelet Volume 9.0 fL (7.4-10.4) Neutrophils (%) (Auto) 58.3 % Lymphocytes (%) (Auto) 30.5 % Monocytes (%) (Auto) 6.8 % Eosinophils (%) (Auto) 3.6 % Basophils (%) (Auto) 0.4 % Neutrophils # (Auto) 2.93 K/uL (1.4-6.5) Lymphocytes # (Auto) 1.53 K/uL (1.2-3.4) Monocytes # (Auto) 0.34 K/uL (0.11-0.59) Eosinophils # (Auto) 0.18 K/uL (0-0.5) Basophils # (Auto) 0.02 K/uL (0-0.2) RDW Standard Deviation 44.5 fL (36.4-46.3) RDW Coefficient of Variation 14.4 % (11.5-14.5) Immature Granulocyte % (Auto) 0.4 % Immature Granulocyte # (Auto) 0.02 K/uL (0.00-0.02) Anion Gap 4.0 mmol/L (3-11) Est Creatinine Clear Calc Drug Dose 110.9 ml/min Estimated GFR () 107.5 Estimated GFR (Non- 92.7 BUN/Creatinine Ratio 17.3 (10-20) Calcium Level 9.0 mg/dl (8.5-10.1) Total Bilirubin 0.6 mg/dl (0.2-1) Direct Bilirubin < 0.1 mg/dl (0-0.2) Aspartate Amino Transf (AST/SGOT) 15 U/L (15-37) Alanine Aminotransferase (ALT/SGPT) 22 U/L (12-78) Alkaline Phosphatase 68 U/L (45-117) Pro-B-Type Natriuretic Peptide 58 pg/ml (0-900) Total Protein 7.4 gm/dl (6.4-8.2) Albumin 3.5 gm/dl (3.4-5.0) Lipase 134 U/L (73-393) Bedside Troponin I 0.000 ng/ml (0-0.045) Medications Administered Medications (Trade) Dose Ordered Sig/Abbi Route Start Time Stop Time Status Last Admin Dose Admin Aspirin (Aspirin Chew) 324 mg NOW STAT PO 03/17/17 08:25 03/17/17 08:27 DC 03/17/17 08:31 324 MG Morphine Sulfate (MoRPHine SULFATE INJ) 4 mg NOW STAT IV 03/17/17 08:25 03/17/17 08:27 DC 03/17/17 08:31 4 MG Ondansetron HCl (Zofran Inj) 4 mg NOW STAT IV 03/17/17 08:25 03/17/17 08:27 DC 03/17/17 08:31 4 MG Al Hydroxide/Mg Hydroxide (Maalox Susp) 30 ml STK-MED ONCE .ROUTE 03/17/17 11:18 03/17/17 11:19 DC 03/17/17 11:21 30 ML Lidocaine HCl (Viscous Lidocaine 2% Soln) 20 ml STK-MED ONCE .ROUTE 03/17/17 11:18 03/17/17 11:19 DC 03/17/17 11:22 10 ML Clonazepam (Klonopin Tab) 0.5 mg NOW STAT PO 03/17/17 12:07 03/17/17 12:08 DC 03/17/17 12:15 0.5 MG ECG Indication: chest pain Rate (beats per minute): 87 Rhythm: normal sinus Findings: T-wave inversion (lead III only) Change: no significant change (inverted T wave in lead III is not new) Medical Decision CC: Patient presenting with complaint of chest pain Interpretation of Labs: No leukocytosis, no anemia, no significant electrolyte abnormalities, normal renal function, normal BNP, troponin negative 2 after more than 6 hours of pain. Differential Diagnosis: Includes, but not limited to acute coronary syndrome, CHF, DVT, pulmonary embolism, aortic dissection, pneumothorax, pericarditis, myocarditis, endocarditis, anxiety, musculoskeletal pain, GERD, costochondritis , pneumonia, among others. Summary: Patient was evaluated at bedside, history of physical exam performed. Alert, no acute distress, noted to ambulate without difficulty. Pt complaining of 8/10 chest pressure and nausea/abdominal bloating. VSS. Pt does not have any notable edema of the lower extremities, she does complain of b/l posterior calf pain with walking. Orders were placed at bedside for labs including troponin and BNP, EKG, CXR, venous duplex to evaluate for ACS, CHF, DVT. Patient discussed with Dr. Mariee, who agrees with my assessment and plan. Patient's chart reviewed, notable for several previous cardiac, PE, and gallbladder workups and studies. Patient states that she has had these symptoms off and on for years, nothing acute or different, but states the chest pressure was flaring up today. Pt is low risk for PE by Well's criteria, is not typical for PE, and she has had multiple chest CT studies for this in the past that have been negative. She also has no DVT on bilateral venous duplex. EKG reviewed, NSR with no concerning ischemic changes and unchanged from previous. CXR reviewed, mild pulmonary vascular congestion without edema, no pneumonia. Labs reviewed, POC troponin and BNP are negative. Second troponin done at > 6 hours from onset of pain, which is also negative. Patient did have some improvement in her chest pain with GI cocktail. I suspect her symptoms are more likely related to GI cause. On reassessment, she is now reporting her chest pressure and leg pain improved, complaining of anxiety and asking for her home Klonopin, which was given. Patient reassessed multiple times throughout ED stay, she remains stable and her symptoms were generally improved. She was encouraged to follow up closely with her PCP, as many of these problems are chronic and ongoing. She was also encouraged to seek referral to GI if her symptoms remain uncontrolled. She verbalized understanding. Impression Primary Impression: Chest pain Additional Impression: Leg swelling Departure Information Dispostion Home / Self-Care Condition GOOD Prescriptions Nystatin (Topical) (NYSTATIN) 100,000 Unit/Gm Oin 1 APPLN TOP TID for 7 Days, #15 GM 1 Refill Apply to the irritated skin on your lower abdomen. Keep the area clean and dry. Prov: Nicki Mcdowell CRNP 03/17/17 Referrals Anali Mathias (PCP) Patient Instructions ED Chest Pain NonCardiac, ED Leg Swelling Bilateral, [facility], [facility] Additional Instructions You have been evaluated today for your chest pain and leg swelling. We have not found any acute problems to explain your symptoms. It is important that you follow-up with your PCP in the next few days to continue managing these ongoing problems. You may benefit from seeing a spanish professor as the next step in a dressing your chest pressure, abdominal pain, and diarrhea. Please return to the ER for worsening symptoms of chest pain, shortness of breath, coughing up or vomiting up blood, severe dizziness or passing out, fever /chills/feeling ill, or any other concerns. Problem Qualifiers Primary Impression: Chest pain Chest pain type: other chest pain Qualified Codes: R07.89 - Other chest pain
[2017-03-17] MEDS ORDERED: MoRPHine SULFATE 4 MG/ML 1 ML CARP\\VIAL IV STA (08:25)
[2017-03-17] MEDS ORDERED: ONDANSETRON INJ 2 MG/ML 2 ML VIAL IV STA (08:25)
[2017-03-17] MEDS ORDERED: ASPIRIN 81 MG CHEW PO STA (08:25)
[2017-03-17] MEDS ORDERED: SYN50 PO (08:26)
[2017-03-17 08:30] LABS: BASO % 0.4 %; BASO ABS # 0.02 K/uL (0-0.2); COMPLETE YES; EOS % 3.6 %; IG% 0.4 %; LYMPH % 30.5 %; LYMPH ABS # 1.53 K/uL (1.2-3.4); MEAN CELL VOLUME 83.9 fL (80-100); MEAN CORPUSCULAR HEMOGLOBIN 27.9 pg (25-34); MEAN CORPUSCULAR HGB CONC 33.2 g/dl (32-36); MONO % 6.8 %; NEUT % 58.3 %; PLATELET COUNT 211 K/uL (130-400); RED BLOOD COUNT 4.41 M/uL (4.2-5.4); WHITE BLOOD COUNT 5.02 K/uL (4.8-10.8)
[2017-03-17 08:51] LABS: ALT/SGPT 22 U/L (12-78); BLOOD UREA NITROGEN 13 mg/dl (7-18); BUN/CREATININE RATIO 17.3 (10-20); CARBON DIOXIDE 30 mmol/L (21-32); CHLORIDE 106 mmol/L (98-107); CREATININE 0.73 mg/dl (0.60-1.20); GLUCOSE 99 mg/dl (70-99); POTASSIUM 3.8 mmol/L (3.5-5.1); SODIUM 140 mmol/L (136-145)
[2017-03-17 08:53] VITALS: O2SAT 99
[2017-03-17 08:55] LABS: ALKALINE PHOSPHATASE 68 U/L (45-117); AST/SGOT 15 U/L (15-37)
--- NOTE | 2017-03-17 09:43 | DIAGNOSTIC IMAGING REPORT ---
BILATERAL LOWER EXTREMITY VENOUS DOPPLER HISTORY: BLE swelling, pain, eval DVT COMPARISON STUDY: None. FINDINGS: There is normal compressibility, flow, and augmentation within the bilateral lower extremity deep venous systems. Right inguinal lymph nodes measure subcentimeter in short axis diameter. IMPRESSION: No DVT within the right or left lower extremity. Electronically signed by: Ernst Arredondo M.D. 03/17/2017 9:42 AM Dictated Date/Time: 03/17/2017 9:42 AM
--- NOTE | 2017-03-17 09:58 | DIAGNOSTIC IMAGING REPORT ---
CHEST ONE VIEW PORTABLE CLINICAL HISTORY: CHEST PAIN dyspnea COMPARISON STUDY: 02/09/2020 1017 FINDINGS: Mild stable cardiomegaly. Mild fullness the pulmonary vasculature. Diaphragms are smooth. IMPRESSION: Pulmonary vascular congestion. Otherwise negative study. Electronically signed by: Negrito Holland M.D. 03/17/2017 9:57 AM Dictated Date/Time: 03/17/2017 9:54 AM
[2017-03-17] MEDS ORDERED: GI COCKTAIL PO STA (10:56)
[2017-03-17] MEDS ORDERED: ALUMINUM/MAGNESIUM SUSP 30 ML UDC ONE (11:18)
[2017-03-17] MEDS ORDERED: LIDOCAINE HCL 2% VISC SOLN 20 ML UDC ONE (11:18)
[2017-03-17] MEDS ORDERED: CLONAZEPAM 0.5 MG TAB PO STA (12:07)
[2017-03-17 13:07] VITALS: BP 119/71; PULSE 79; O2SAT 98
[2017-03-17] MEDS ORDERED: NYST80OI TOP (14:36)
[2017-04-06] MEDS ORDERED: COEN75CA PO (08:24)
[2017-04-06] MEDS ORDERED: ATV5X PO (08:26)
[2017-04-06] MEDS ORDERED: DPH/ PO (09:07)
[2017-04-06] MEDS ORDERED: CLR10 PO (09:07)
[2017-04-06] MEDS ORDERED: SALI0.6510 NAE (09:07)
[2017-04-06] MEDS ORDERED: TYLOTC500 PO (12:15)
[2017-04-06] MEDS ORDERED: MULTTAB58 PO (12:19)
[2017-04-11] MEDS ORDERED: CEFD300C2 PO (08:27)
[2017-04-11] MEDS ORDERED: LCTXP PO (08:27)
[2017-05-13] MEDS ORDERED: DIPH50TA10 PO (14:15)
[2017-05-13] MEDS ORDERED: PROC1TAB5 PO (14:15)
[2017-05-13] MEDS ORDERED: DICL50TA3 PO (14:15)
[2017-07-14] MEDS ORDERED: TURM500T PO (14:14)
== END 2017-03-17 13:08 | disposition home or self-care (01) ==
LOC: C.EDB 07:25 → C.EDA 13:08
DX: R07.89 Other chest pain (principal); R60.0 Localized edema; F41.9 Anxiety disorder, unspecified; E03.9 Hypothyroidism, unspecified; M48.00 Spinal stenosis, site unspecified; Z90.710 Acquired absence of both cervix and uterus; Z83.3 Family history of diabetes mellitus; Z82.49 Family history of ischemic heart disease and other diseases of the circulatory system

== ENCOUNTER 2017-04-06 15:31 | Emergency (ER) | payer BC ==
[~2017-04-06] VITALS: Ht 154.9 cm; Wt 128.5 kg
[~2017-04-06 15:31] MED LIST changes: +ATV5X PO; +CLR10 PO; +COEN75CA PO; -DOCU100C31 PO; +DPH/ PO; -LEVO50TA6 PO; +MULTTAB58 PO; +NYST80OI TOP; +SALI0.6510 NAE; +SYN50 PO; +TYLOTC500 PO
[2017-04-06 15:35] VITALS: Ht 154.9 cm; Wt 128.5 kg
[2017-04-06] MEDS ORDERED: KLN5X PO (17:29)
[2017-04-06] MEDS ORDERED: SODIUM CHLORIDE 0.9% 1000ML 1,000 ML IV STA (17:46)
[2017-04-06] MEDS ORDERED: ONDANSETRON INJ 2 MG/ML 2 ML VIAL IV STA (17:46)
[2017-04-06] MEDS ORDERED: MoRPHine SULFATE 4 MG/ML 1 ML CARP\\VIAL IV STA (17:46)
[2017-04-06] MEDS ORDERED: LEVO50TA6 PO (18:02)
[2017-04-06] MEDS ORDERED: NAPR-1221 PO (18:09)
[2017-04-06 18:27] LABS: URINE APPEARANCE CLEAR (CLEAR); URINE BILIRUBIN NEG (NEG); URINE COLOR YELLOW; URINE EPITHELIAL CELL AUTO >30 /lpf (0-5); URINE NITRITE NEG (NEG); URINE PH 8.5 (4.5-7.5); URINE SPECIFIC GRAVITY 1.019 (1.000-1.030); UROBILINOGEN NEG (NEG)
[2017-04-06 18:30] LABS: MANUAL MICROSCOPIC REQUIRED? NO; REVIEW REQ? NO
[2017-04-06] MEDS ORDERED: ONDA4TAB10 SL (18:40)
[2017-04-06] MEDS ORDERED: OMEG10007 PO (18:40)
--- NOTE | 2017-04-06 18:51 | DIAGNOSTIC IMAGING REPORT ---
CT OF THE ABDOMEN AND PELVIS WITHOUT CONTRAST, STONE PROTOCOL CLINICAL HISTORY: Flank and back pain. Evaluate for stone. COMPARISON STUDY: CT of the abdomen and pelvis September 07, 2014 and renal ultrasound and right upper quadrant on February 08, 2017. TECHNIQUE: Helical axial images of the abdomen and pelvis were obtained without IV or oral contrast according to renal stone protocol. FINDINGS: The lung bases are clear. There is a 2 mm calculus within the upper pole of the left kidney. There are no ureteral calculi. There are bilateral parapelvic cysts. There is no hydronephrosis. Postsurgical findings within the spine are incidentally noted. Evaluation of the abdomen and pelvis is suboptimal on this unenhanced exam. There is suspected fatty infiltration of the liver. The spleen, adrenal glands and pancreas are normal. There is no evidence for a bowel obstruction. The appendix is not visualized. A prominent lymph node located posterior to the IVC is unchanged since exam of September 07, 2014. This is benign given stability. No suspicious osseous lesions are present. There is no ascites. IMPRESSION: 1. 2 mm left renal calculus. No ureteral calculi or hydronephrosis. 2. Bilateral parapelvic cysts. 3. No evidence for a bowel obstruction. Electronically signed by: Momo Dumont M.D. 04/06/2017 6:50 PM Dictated Date/Time: 04/06/2017 6:42 PM
[2017-04-06 18:57] LABS: BASO % 0.6 %; BASO ABS # 0.04 K/uL (0-0.2); COMPLETE YES; HEMATOCRIT 38.5 % (37-47); IG% 0.3 %; LYMPH % 27.7 %; MEAN CELL VOLUME 83.7 fL (80-100); MEAN CORPUSCULAR HEMOGLOBIN 28.5 pg (25-34); MONO % 4.6 %; NEUT % 63.8 %; PLATELET COUNT 222 K/uL (130-400); WHITE BLOOD COUNT 7.23 K/uL (4.8-10.8)
[2017-04-06 19:26] LABS: BUN/CREATININE RATIO 13.2 (10-20); CALCIUM 8.9 mg/dl (8.5-10.1); CREATININE 0.72 mg/dl (0.60-1.20)
[2017-04-06] MEDS ORDERED: AMOX875T PO (19:36)
[2017-04-06] MEDS ORDERED: AMOXICILLIN/CLAVULANATE TAB 875 MG TAB PO ONE (19:45)
[2017-04-06 19:53] VITALS: BP 134/91; PULSE 111; TEMP 36.9; O2SAT 99
--- NOTE | 2017-04-07 00:47 | EMERGENCY ROOM VISIT NOTE ---
History Report prepared by Macrina: Jai Stewart Under the Supervision of: Dr. Louis Bright M.D. First contact with patient: 17:33 Chief Complaint: UNABLE TO VOID Stated Complaint: CANNOT URINATE, BACK AND ABD. PAIN History of Present Illness The patient is a 56 year old female who presents to the Emergency Room with complaints of constant trouble urinating beginning last night. She currently rates her discomfort an 8/10 in severity. The patient states that it feel like she needs to urinate, but she can not. She reports that the last time she was able to pass urine was 0400 this morning. The patient notes that when she urinated it burned a little. She reports that she also has, intermittent, sharp , achy, lower abdomen and lower back pain. The patient denies fevers and vomiting. She states that she does not have a history of kidney stones, and she has never had symptoms like this before. The patient notes that she was at her PCP earlier today and was told to come here for a CT scan. She reports that her PCP believed she has a kidney issue. The patient states that she is able to ambulate without issue and denies any numbness or weakness in her legs. Her pain does not radiate down to her legs. Source of History: patient Onset: last evening Position: other (bladder) Symptom Intensity: 8/10 Quality: other (urinary retention) Timing: constant Associated Symptoms: + abdominal pain, + back pain, No fevers, No vomiting Review of Systems See HPI for pertinent positives & negatives. A total of 10 systems reviewed and were otherwise negative. Past Medical & Surgical Medical Problems: (1) Anxiety (2) Chest pain (3) Hypothyroidism (4) Spinal stenosis (5) Uterine artery ablation Surgical Problems: (1) History of carpal tunnel surgery of left wrist (2) History of carpal tunnel surgery of right wrist (3) S/P appendectomy (4) S/P cervical spinal fusion (5) S/P lumbar spinal fusion (6) S/P partial hysterectomy (7) S/P tubal ligation Family History Cancer Diabetes mellitus Heart disease Hypertension Lung disease Social History Smoking Status: Former Smoker Alcohol Use: none Drug Use: none Marital Status: Housing Status: lives with family Occupation Status: employed Current/Historical Medications Scheduled Amoxicillin & Pot Clavulanate (Augmentin 875-125 mg), 875 MG PO BID Clonazepam (Clonazepam), 0.5 MG PO HS Coenzyme Q10 (Ubidecarenone) (Co Q-10), 75 MG PO DAILY Fish Oil ([place]-3), 1 CAP PO DAILY Levothyroxine Sodium (Levothyroxine Sodium), 50 MCG PO Q2D Levothyroxine Sodium (Levothyroxine Sodium), 75 MCG PO Q2D Multiple Vitamin (Multivitamin), 1 TAB PO DAILY Nystatin (Topical) (Nystatin), 1 APPLN TOP TID Scheduled PRN Acetaminophen (Tylenol), 1,000 MG PO Q6H PRN for Pain or Fever Diphenoxylate W/ Atropine (Lomotil), 1 TAB PO BID PRN for Loose Stool(s) Loratadine (Claritin), 10 MG PO DAILY PRN for Allergy Symptoms Lorazepam (Lorazepam), 0.5 MG PO DAILY PRN for Anxiety Naproxen (Naproxen), 375 MG PO BID PRN for Arthritic Pain Ondasetron Odt (Zofran Odt), 4 MG SL Q6H PRN for Nausea Saline ([place] Nasal [place]), 2 SPRAYS LAI DAILY PRN for Nasal Dryness Allergies Coded Allergies: Sulfa Antibiotics (Verified Allergy, Mild, UNKNOWN, 02/08/17) Diphenhydramine (Verified Allergy, Unknown, in IV form only, 02/08/17) Hydroxyzine (Verified Allergy, Unknown, Unknown, 04/06/17) Vistaril Levofloxacin (Unverified Allergy, Unknown, RASH, 02/08/17) Quinolones (Verified Allergy, Unknown, 02/08/17) Wheat (Unverified Allergy, Unknown, adverse reaction, 02/08/17) Prednisone (Verified Adverse Reaction, Intermediate, PSYCH COMPLICATIONS, 02/08/17) Tramadol (Verified Adverse Reaction, Intermediate, "OUT OF BODY", 02/08/17) Physical Exam Vital Signs Date Time Temp Pulse Resp B/P (MAP) Pulse Ox O2 Delivery O2 Flow Rate FiO2 04/06/17 19:53 36.9 111 20 134/91 99 04/06/17 19:51 36.9 111 20 134/91 99 Room Air 04/06/17 15:35 36.9 111 20 134/84 99 Room Air Physical Exam Constitutional: Vital signs reviewed. Eyes: Pupils are equal round reactive to light. Conjunctiva are noninjected. ENT: Pharynx is clear without erythema or exudate. Mucous membranes are moist. Neck supple without meningeal signs. Respiratory: Clear to auscultation bilaterally. Breath sounds are equal bilaterally. Cardiovascular: Regular rate and rhythm. No rubs or gallops. GI: Soft, nondistended and nontender. Bowel sounds are present. Musculoskeletal: No peripheral edema. No lower extremity tenderness. Integumentary: No cyanosis. Neurological: The patient is awake and alert. No focal deficits. Normal gait, normal strength and sensation in the lower extremities. Psychiatric: Normal affect. Medical Decision & Procedures ER Provider Diagnostic Interpretation: CT results as stated below per my review and radiologist interpretation. CT OF THE ABDOMEN AND PELVIS WITHOUT CONTRAST, STONE PROTOCOL CLINICAL HISTORY: Flank and back pain. Evaluate for stone. COMPARISON STUDY: CT of the abdomen and pelvis September 07, 2014 and renal ultrasound and right upper quadrant on February 08, 2017. TECHNIQUE: Helical axial images of the abdomen and pelvis were obtained without IV or oral contrast according to renal stone protocol. FINDINGS: The lung bases are clear. There is a 2 mm calculus within the upper pole of the left kidney. There are no ureteral calculi. There are bilateral parapelvic cysts. There is no hydronephrosis. Postsurgical findings within the spine are incidentally noted. Evaluation of the abdomen and pelvis is suboptimal on this unenhanced exam. There is suspected fatty infiltration of the liver. The spleen, adrenal glands and pancreas are normal. There is no evidence for a bowel obstruction. The appendix is not visualized. A prominent lymph node located posterior to the IVC is unchanged since exam of September 07, 2014. This is benign given stability. No suspicious osseous lesions are present. There is no ascites. IMPRESSION: 1. 2 mm left renal calculus. No ureteral calculi or hydronephrosis. 2. Bilateral parapelvic cysts. 3. No evidence for a bowel obstruction. Electronically signed by: Momo Dumont M.D. 04/06/2017 6:50 PM Dictated Date/Time: 04/06/2017 6:42 PM Laboratory Results 04/06/17 18:47 Red Blood Count 4.60, Mean Corpuscular Volume 83.7, Mean Corpuscular Hemoglobin 28.5, Mean Corpuscular Hemoglobin Concent 34.0, Mean Platelet Volume 9.0, Neutrophils (%) (Auto) 63.8, Lymphocytes (%) (Auto) 27.7, Monocytes (%) (Auto) 4.6, Eosinophils (%) (Auto) 3.0, Basophils (%) (Auto) 0.6, Neutrophils # (Auto) 4.62, Lymphocytes # (Auto) 2.00, Monocytes # (Auto) 0.33, Eosinophils # (Auto) 0.22, Basophils # (Auto) 0.04 04/06/17 18:47 Test 04/06/17 18:10 04/06/17 18:47 Urine Color YELLOW Urine Appearance CLEAR (CLEAR) Urine pH 8.5 (4.5-7.5) Urine Specific [place] 1.019 (1.000-1.030) Urine Protein NEG (NEG) Urine Glucose (UA) NEG (NEG) Urine Ketones NEG (NEG) Urine Occult Blood 2+ (NEG) Urine Nitrite NEG (NEG) Urine Bilirubin NEG (NEG) Urine Urobilinogen NEG (NEG) Urine Leukocyte Esterase MODERATE (NEG) Urine WBC (Auto) >30 /hpf (0-5) Urine RBC (Auto) >30 /hpf (0-4) Urine Hyaline Casts (Auto) 10-30 /lpf (0-5) Urine Epithelial Cells (Auto) >30 /lpf (0-5) Urine Bacteria (Auto) 1+ (NEG) White Blood Count 7.23 K/uL (4.8-10.8) Red Blood Count 4.60 M/uL (4.2-5.4) Hemoglobin 13.1 g/dL (12.0-16.0) Hematocrit 38.5 % (37-47) Mean Corpuscular Volume 83.7 fL (80-100) Mean Corpuscular Hemoglobin 28.5 pg (25-34) Mean Corpuscular Hemoglobin Concent 34.0 g/dl (32-36) Platelet Count 222 K/uL (130-400) Mean Platelet Volume 9.0 fL (7.4-10.4) Neutrophils (%) (Auto) 63.8 % Lymphocytes (%) (Auto) 27.7 % Monocytes (%) (Auto) 4.6 % Eosinophils (%) (Auto) 3.0 % Basophils (%) (Auto) 0.6 % Neutrophils # (Auto) 4.62 K/uL (1.4-6.5) Lymphocytes # (Auto) 2.00 K/uL (1.2-3.4) Monocytes # (Auto) 0.33 K/uL (0.11-0.59) Eosinophils # (Auto) 0.22 K/uL (0-0.5) Basophils # (Auto) 0.04 K/uL (0-0.2) RDW Standard Deviation 43.7 fL (36.4-46.3) RDW Coefficient of Variation 14.3 % (11.5-14.5) Immature Granulocyte % (Auto) 0.3 % Immature Granulocyte # (Auto) 0.02 K/uL (0.00-0.02) Anion Gap 7.0 mmol/L (3-11) Est Creatinine Clear Calc Drug Dose 111.6 ml/min Estimated GFR () 109.3 Estimated GFR (Non- 94.3 BUN/Creatinine Ratio 13.2 (10-20) Calcium Level 8.9 mg/dl (8.5-10.1) Total Bilirubin 0.5 mg/dl (0.2-1) Direct Bilirubin 0.1 mg/dl (0-0.2) Aspartate Amino Transf (AST/SGOT) 21 U/L (15-37) Alanine Aminotransferase (ALT/SGPT) 29 U/L (12-78) Alkaline Phosphatase 75 U/L (45-117) Total Protein 7.8 gm/dl (6.4-8.2) Albumin 3.6 gm/dl (3.4-5.0) Lipase 126 U/L (73-393) Laboratory results as reviewed by me. Medications Administered Medications (Trade) Dose Ordered Sig/Abbi Route Start Time Stop Time Status Last Admin Dose Admin Sodium Chloride 1,000 ml @ 999 mls/hr Q1H1M STAT IV 04/06/17 17:46 04/06/17 18:46 DC 04/06/17 19:15 999 MLS/HR Morphine Sulfate (MoRPHine SULFATE INJ) 4 mg NOW STAT IV 04/06/17 17:46 04/06/17 17:49 DC 04/06/17 19:14 4 MG Ondansetron HCl (Zofran Inj) 4 mg NOW STAT IV 04/06/17 17:46 04/06/17 17:49 DC 04/06/17 19:15 4 MG Amoxicillin/ Clavulanate Potassium (Augmentin Tab) 875 mg ONE ONCE PO 04/06/17 19:45 04/06/17 19:47 DC 04/06/17 19:50 875 MG ED Course 1745: Ordered Zofran Inj 4mg IV, Morphine Sulfate 4mg IV, Sodium Chloride 1000 ml @ 999 mls/hr IV 1746: The patient was evaluated in room A10. A complete history and physical exam was performed. 1927: I reevaluated the patient and discussed her test results with her and her . She is feeling better. 1944: Ordered Augmentin Tab 875mg PO 1945: Upon reevaluation, the patient appeared to have improvement of her symptoms. She verbalized agreement of the treatment plan. The patient was discharged home. Medical Decision This is a 56-year-old female who presents with lower abdominal pain rating to her back with trouble urinating. Differential diagnosis includes urinary retention, abdominal mass, kidney stone, hydronephrosis, UTI, cystitis. I did perform a limited focused review of portions of the patient's old chart on the electronic medical record. The patient was seen here March 17 for an exacerbation of chest and abdominal pain. She was discharged after evaluation. Medication Reconciliation: I attest that I have personally reviewed the patient' s current medication list. Blood Pressure Screening: Patient was found to have a slightly elevated blood pressure due to circumstances. I do not believe that the patient requires hypertension monitoring. I did evaluate the patient as noted above. IV access was established. I did treat the patient with IV morphine and Zofran. She was also given normal saline IV. I did order and personally review the patient's urinalysis as described above. I did order and review the patient's blood work as noted in the electronic medical record. Her white blood cell count is not elevated. Labs are unremarkable. I did order a CT of the abdomen and pelvis. I did review the images myself as well as the radiology report as described above. There is no evidence of acute process. She does have stable lymphadenopathy. I did discuss the test results with the patient and her . She is feeling better. I did treat the patient with Augmentin. She was discharged with a prescription for Augmentin and advised follow closely with her doctor. Impression Primary Impression: Lower abdominal pain Additional Impression: UTI (urinary tract infection) Scribe Attestation The scribe's documentation has been prepared under my direct and personally reviewed by me in its entirety. I confirm that the note above accurately reflects all work, treatment, procedures, and medical decision making performed by me. Departure Information Dispostion Home / Self-Care Prescriptions Amoxicillin & Pot Clavulanate (Augmentin 875-125 mg) 1 Tab Tab 875 MG PO BID for 10 Days, #20 TAB Prov: Louis Bright M.D. 04/06/17 Referrals Anali Mathias (PCP) Forms HOME CARE DOCUMENTATION FORM, IMPORTANT VISIT INFORMATION, WORK / SCHOOL INSTRUCTIONS Patient Instructions ED UTI Cystitis Female, My [facility] Additional Instructions You have been examined and treated today on an emergency basis only. This is not a substitute for, or an effort to provide, complete comprehensive medical care. It is impossible to recognize and treat all injuries or illnesses in a single emergency department visit. It is therefore important that you follow up closely with your physician. Call as soon as possible for an appointment. Return for worsening symptoms or if you develop fever, vomiting, or any other concerning symptoms. Problem Qualifiers Additional Impression: UTI (urinary tract infection) Urinary tract infection type: site unspecified Hematuria presence: with hematuria Qualified Codes: N39.0 - Urinary tract infection, site not specified ; R31.9 - Hematuria, unspecified
[2017-04-11] MEDS ORDERED: LCTXP PO (08:27)
[2017-04-11] MEDS ORDERED: CEFD300C2 PO (08:27)
[2017-05-13] MEDS ORDERED: DICL50TA3 PO (14:15)
[2017-05-13] MEDS ORDERED: PROC1TAB5 PO (14:15)
[2017-05-13] MEDS ORDERED: DIPH50TA10 PO (14:15)
[2017-07-14] MEDS ORDERED: TURM500T PO (14:14)
== END 2017-04-06 19:54 | disposition home or self-care (01) ==
LOC: C.EDB 15:32 → C.EDA 19:54
DX: R10.30 Lower abdominal pain, unspecified (principal); N39.0 Urinary tract infection, site not specified; F41.9 Anxiety disorder, unspecified; E03.9 Hypothyroidism, unspecified; M48.00 Spinal stenosis, site unspecified; Z83.3 Family history of diabetes mellitus; Z82.49 Family history of ischemic heart disease and other diseases of the circulatory system; Z87.891 Personal history of nicotine dependence; N20.0 Calculus of kidney

== ENCOUNTER 2017-04-09 13:14 | Inpatient (IN) | payer BC ==
[~2017-04-09] VITALS: Ht 154.9 cm; Wt 128.0 kg
[~2017-04-09 13:14] MED LIST changes: +AMOX875T PO; +KLN5X PO; +LEVO50TA6 PO; +NAPR-1221 PO; +OMEG10007 PO; -SYN50 PO
[2017-04-09] MEDS ORDERED: CEFTRIAXONE SOD INJ 2,000 MG in DEXTROSE 5% 50ML 50 ML IV STA (13:27)
[2017-04-09] MEDS ORDERED: SODIUM CHLORIDE 0.9% 1000ML 500 ML IV STA (13:27)
[2017-04-09] MEDS ORDERED: KETOROLAC TROMETHAMINE 30 MG/ML VIAL IV STA (13:27)
[2017-04-09] MEDS ORDERED: SODIUM CHLORIDE 0.9% 1000ML 1,000 ML IV STA (13:27)
[2017-04-09] MEDS ORDERED: ONDANSETRON INJ 2 MG/ML 2 ML VIAL IV STA (13:27)
[2017-04-09] MEDS: MoRPHine SULFATE 4 MG/ML 1 ML CARP\\VIAL IV PRN ×3 (14:15→18:06)
[2017-04-09] MEDS ORDERED: NYSCR30 TOP (14:22)
[2017-04-09 14:39] LABS: URINE APPEARANCE CLEAR (CLEAR); URINE BILIRUBIN NEG (NEG); URINE COLOR YELLOW; URINE NITRITE NEG (NEG); URINE SPECIFIC GRAVITY 1.007 (1.000-1.030); UROBILINOGEN NEG (NEG); ZZUR CULT IF INDIC CLEAN CATCH NO
[2017-04-09 14:40] LABS: MANUAL MICROSCOPIC REQUIRED? NO; REVIEW REQ? NO
--- NOTE | 2017-04-09 14:51 | DIAGNOSTIC IMAGING REPORT ---
RENAL ULTRASOUND HISTORY: Right-sided FLANK PAIN COMPARISON: None. FINDINGS: Right kidney: 12.1 cm. No hydronephrosis. Normal corticomedullary differentiation and cortical thickness. Peripelvic cysts. Left kidney: 11.9 cm. No hydronephrosis. Normal corticomedullary differentiation and cortical thickness. The punctate renal stone seen on the prior CT is too small to identify by this modality. Peripelvic cysts. Bladder: Not well distended. The ureteral jets are not identified. IMPRESSION: 1. No hydronephrosis. 2. Bilateral peripelvic cysts are again noted. Electronically signed by: Ernst Arredondo M.D. 04/09/2017 2:50 PM Dictated Date/Time: 04/09/2017 2:48 PM
[2017-04-09] MEDS ORDERED: SODIUM CHLORIDE 0.9% 500ML 500 ML IV STA (15:37)
[2017-04-09 16:07] LABS: BASO % 0.6 %; BASO ABS # 0.03 K/uL (0-0.2); COMPLETE YES; EOS % 4.1 %; HEMATOCRIT 35.9 % (37-47); IG% 0.6 %; LYMPH % 38.1 %; LYMPH ABS # 1.95 K/uL (1.2-3.4); MEAN CELL VOLUME 84.1 fL (80-100); MEAN CORPUSCULAR HEMOGLOBIN 27.6 pg (25-34); MEAN CORPUSCULAR HGB CONC 32.9 g/dl (32-36); MEAN PLATELET VOLUME 9.3 fL (7.4-10.4); MONO % 6.1 %; NEUT % 50.5 %; PLATELET COUNT 200 K/uL (130-400); RED BLOOD COUNT 4.27 M/uL (4.2-5.4); WHITE BLOOD COUNT 5.12 K/uL (4.8-10.8)
--- NOTE | 2017-04-09 16:11 | EMERGENCY ROOM VISIT NOTE ---
History Report prepared by Macrina: Jai Stewart Under the Supervision of: Dr. Bulmaro Zapata M.D. First contact with patient: 13:20 Chief Complaint: FLANK PAIN Stated Complaint: PAIN - RT SIDE OF BACK & HIP History of Present Illness The patient is a 56 year old female who presents to the Emergency Room with complaints of constant, sharp, right-sided flank pain beginning this morning. The patient states that this morning she woke up with sharp pain, and she currently rates her discomfort a 10/10 in severity. She reports that she is not feeling well, nauseous, has the chills. The patient denies vomiting (but is very nauseous), dysuria, cough, diarrhea, and hematuria. She states that she is not on blood thinners. The patient notes that she typically is in the ER once a year for similar infections, and she typically stays in the hospital for a week receiving IV antibiotics. Per the patient's records, she was here 3 days ago and had a 2mm left renal calculous, but there was no ureteral calculi. Dr. Bright, ER, discharged the patient on Augmentin for a UTI. Urine cultures show that the bacteria is resistant to Augmentin. Source of History: patient Onset: this morning Position: other (right flank) Symptom Intensity: 10/10 Quality: sharp Timing: constant Associated Symptoms: + chills, + nausea, No cough, No vomiting, No diarrhea , No urinary symptoms Review of Systems See HPI for pertinent positives & negatives. A total of 10 systems reviewed and were otherwise negative. Past Medical & Surgical Medical Problems: (1) Anxiety (2) Chest pain (3) Hypothyroidism (4) Spinal stenosis (5) Uterine artery ablation Surgical Problems: (1) History of carpal tunnel surgery of left wrist (2) History of carpal tunnel surgery of right wrist (3) S/P appendectomy (4) S/P cervical spinal fusion (5) S/P lumbar spinal fusion (6) S/P partial hysterectomy (7) S/P tubal ligation Family History Cancer Diabetes mellitus Heart disease Hypertension Lung disease Social History Smoking Status: Never Smoker Alcohol Use: none Drug Use: none Marital Status: Housing Status: lives with family Occupation Status: employed Current/Historical Medications Scheduled Clonazepam (Clonazepam), 0.5 MG PO HS Coenzyme Q10 (Ubidecarenone) (Co Q-10), 75 MG PO DAILY Fish Oil (Mcewen-3), 1 CAP PO DAILY Levothyroxine Sodium (Levothyroxine Sodium), 50 MCG PO Q2D Levothyroxine Sodium (Levothyroxine Sodium), 75 MCG PO Q2D Multiple Vitamin (Multivitamin), 1 TAB PO DAILY Nystatin (Nystatin Cream), 1 DOSE TOP TID Scheduled PRN Acetaminophen (Tylenol), 1,000 MG PO Q6H PRN for Pain or Fever Diphenoxylate W/ Atropine (Lomotil), 1 TAB PO BID PRN for Loose Stool(s) Loratadine (Claritin), 10 MG PO DAILY PRN for Allergy Symptoms Lorazepam (Lorazepam), 0.5 MG PO DAILY PRN for Anxiety Naproxen (Naproxen), 375 MG PO BID PRN for Arthritic Pain Ondasetron Odt (Zofran Odt), 4 MG SL Q6H PRN for Nausea Saline ([place] Nasal [place]), 2 SPRAYS LAI DAILY PRN for Nasal Dryness Allergies Coded Allergies: Sulfa Antibiotics (Verified Allergy, Mild, UNKNOWN, 04/09/17) Diphenhydramine (Verified Allergy, Unknown, in IV form only, 04/09/17) Hydroxyzine (Verified Allergy, Unknown, Unknown, 04/09/17) Vistaril Levofloxacin (Verified Allergy, Unknown, RASH, 04/09/17) Quinolones (Verified Allergy, Unknown, 04/09/17) Wheat (Verified Allergy, Unknown, adverse reaction, 04/09/17) Prednisone (Verified Adverse Reaction, Intermediate, PSYCH COMPLICATIONS, 04/09/17) Tramadol (Verified Adverse Reaction, Intermediate, "OUT OF BODY", 04/09/17) Physical Exam Vital Signs Date Time Temp Pulse Resp B/P (MAP) Pulse Ox O2 Delivery O2 Flow Rate FiO2 04/09/17 18:04 79 18 130/73 96 Room Air 04/09/17 17:40 Room Air 04/09/17 15:20 82 18 118/62 97 Room Air 04/09/17 13:17 36.8 84 18 125/67 98 Room Air Physical Exam GENERAL: Patient is in no acute distress. HEENT: No acute trauma, normocephalic atraumatic, mucous membranes moist, no nasal congestion, no scleral icterus. NECK: No stridor, no adenopathy, no meningismus, trachea is midline. LUNGS: Clear to auscultation bilaterally, no wheeze, no rhonchi, breath sounds equal. HEART: Without murmurs gallops or rubs, regular rate and rhythm. ABDOMEN: Soft, nontender, bowel sounds positive, no hernias, no peritonitis. BACK: Right flank discomfort with percussion EXTREMITIES: No cyanosis or edema, full range of motion of all the joints without pain or difficulty, no signs for acute trauma. NEUROLOGIC: Oriented x 3, no acute motor or sensory deficits, no focal weakness. SKIN: No rash, no jaundice, no diaphoresis. Medical Decision & Procedures ER Provider Diagnostic Interpretation: Radiology results as stated below per my review and radiologist interpretation: RENAL ULTRASOUND HISTORY: Right-sided FLANK PAIN COMPARISON: None. FINDINGS: Right kidney: 12.1 cm. No hydronephrosis. Normal corticomedullary differentiation and cortical thickness. Peripelvic cysts. Left kidney: 11.9 cm. No hydronephrosis. Normal corticomedullary differentiation and cortical thickness. The punctate renal stone seen on the prior CT is too small to identify by this modality. Peripelvic cysts. Bladder: Not well distended. The ureteral jets are not identified. IMPRESSION: 1. No hydronephrosis. 2. Bilateral peripelvic cysts are again noted. Electronically signed by: Ernst Arredondo M.D. 04/09/2017 2:50 PM Dictated Date/Time: 04/09/2017 2:48 PM Laboratory Results 04/09/17 16:00 Red Blood Count 4.27, Mean Corpuscular Volume 84.1, Mean Corpuscular Hemoglobin 27.6, Mean Corpuscular Hemoglobin Concent 32.9, Mean Platelet Volume 9.3, Neutrophils (%) (Auto) 50.5, Lymphocytes (%) (Auto) 38.1, Monocytes (%) (Auto) 6.1, Eosinophils (%) (Auto) 4.1, Basophils (%) (Auto) 0.6, Neutrophils # (Auto) 2.59, Lymphocytes # (Auto) 1.95, Monocytes # (Auto) 0.31, Eosinophils # (Auto) 0.21, Basophils # (Auto) 0.03 04/09/17 16:00 Test 04/09/17 14:21 04/09/17 16:00 Urine Color YELLOW Urine Appearance CLEAR (CLEAR) Urine pH 6.0 (4.5-7.5) Urine Specific [place] 1.007 (1.000-1.030) Urine Protein NEG (NEG) Urine Glucose (UA) NEG (NEG) Urine Ketones NEG (NEG) Urine Occult Blood NEG (NEG) Urine Nitrite NEG (NEG) Urine Bilirubin NEG (NEG) Urine Urobilinogen NEG (NEG) Urine Leukocyte Esterase NEG (NEG) White Blood Count 5.12 K/uL (4.8-10.8) Red Blood Count 4.27 M/uL (4.2-5.4) Hemoglobin 11.8 g/dL (12.0-16.0) Hematocrit 35.9 % (37-47) Mean Corpuscular Volume 84.1 fL (80-100) Mean Corpuscular Hemoglobin 27.6 pg (25-34) Mean Corpuscular Hemoglobin Concent 32.9 g/dl (32-36) Platelet Count 200 K/uL (130-400) Mean Platelet Volume 9.3 fL (7.4-10.4) Neutrophils (%) (Auto) 50.5 % Lymphocytes (%) (Auto) 38.1 % Monocytes (%) (Auto) 6.1 % Eosinophils (%) (Auto) 4.1 % Basophils (%) (Auto) 0.6 % Neutrophils # (Auto) 2.59 K/uL (1.4-6.5) Lymphocytes # (Auto) 1.95 K/uL (1.2-3.4) Monocytes # (Auto) 0.31 K/uL (0.11-0.59) Eosinophils # (Auto) 0.21 K/uL (0-0.5) Basophils # (Auto) 0.03 K/uL (0-0.2) RDW Standard Deviation 43.8 fL (36.4-46.3) RDW Coefficient of Variation 14.3 % (11.5-14.5) Immature Granulocyte % (Auto) 0.6 % Immature Granulocyte # (Auto) 0.03 K/uL (0.00-0.02) Anion Gap 7.0 mmol/L (3-11) Est Creatinine Clear Calc Drug Dose 121.4 ml/min Estimated GFR () 115.3 Estimated GFR (Non- 99.4 BUN/Creatinine Ratio 11.0 (10-20) Calcium Level 8.2 mg/dl (8.5-10.1) Total Bilirubin 0.3 mg/dl (0.2-1) Aspartate Amino Transf (AST/SGOT) 14 U/L (15-37) Alanine Aminotransferase (ALT/SGPT) 23 U/L (12-78) Alkaline Phosphatase 62 U/L (45-117) Total Protein 7.0 gm/dl (6.4-8.2) Albumin 3.0 gm/dl (3.4-5.0) Globulin 4.0 gm/dl (2.5-4.0) Albumin/Globulin Ratio 0.8 (0.9-2) Triglycerides Level 98 mg/dl (0-150) Cholesterol Level 145 mg/dl (0-200) HDL Cholesterol 32 mg/dl LDL Cholesterol, Calculated 93 mg/dl VLDL Cholesterol, Calculated 20 mg/dl Cholesterol/HDL Ratio 4.5 Lipase 366 U/L (73-393) Per a culture obtained on 04/09/2017 by YAJAIRA Cardenas Stephanie: Using Escherichia coli: Drug Broth Broth KYRA Amoxicillin/Clavulanic A Resistant >16/8 Ceftriaxone Suscept. <=1 Ciprofloxacin Suspect. <=1 Levofloxacin Suscept. <=1 Trimeth-Sulfamethoxazole Suscept. <=. Laboratory results reviewed by me. Medications Administered Medications (Trade) Dose Ordered Sig/Abbi Route Start Time Stop Time Status Last Admin Dose Admin Sodium Chloride 500 ml @ 999 mls/hr Q31M STAT IV 04/09/17 13:27 04/09/17 13:57 DC 04/09/17 14:13 999 MLS/HR Ondansetron HCl (Zofran Inj) 4 mg NOW STAT IV 04/09/17 13:27 04/09/17 13:31 DC 04/09/17 14:13 4 MG Sodium Chloride 1,000 ml @ 200 mls/hr Q5H STAT IV 04/09/17 13:27 04/09/17 18:26 04/09/17 14:13 200 MLS/HR Morphine Sulfate (MoRPHine SULFATE INJ) 4 mg Q15M PRN IV 04/09/17 13:30 04/23/17 13:29 04/09/17 18:06 4 MG Ketorolac Tromethamine (Toradol Inj) 15 mg NOW STAT IV 04/09/17 13:27 04/09/17 13:31 DC 04/09/17 14:14 15 MG Ceftriaxone Sodium 2000 mg/ Dextrose 70 ml @ 100 mls/hr ONE STAT IV 04/09/17 13:27 04/09/17 14:08 DC 04/09/17 14:13 100 MLS/HR Sodium Chloride 500 ml @ 999 mls/hr Q31M STAT IV 04/09/17 15:37 04/09/17 16:07 DC 04/09/17 15:44 999 MLS/HR ED Course 1324: The patient was evaluated in room C10. A complete history and physical exam was performed. 1327: Ordered Ceftriaxone Sodium 2000 mg/Dextrose 70ml @ 100 mls/hr IV, Toradol Inj 15mg IV, Sodium Chloride 1000 ml @ 200 mls/hr IV, Zofran Inj 4mg IV, Sodium Chloride 500 ml @ 999 mls/hr IV 1330: Ordered Morphine Sulfate 4mg IV 1537: Ordered Sodium Chloride 500 ml @ 999 mls/hr IV 1633: I reevaluated the patient and discussed her exam findings. She feels better but is still having discomfort. I discussed the treatment plan, and she verbalized complete understanding. 1645: I discussed the patients case with Dr. Willy Kovacs, [facility] Hospitalist. The patient will be evaluated for further treatment. Medical Decision Differential diagnosis includes: pyelonephritis, renal colic, renal failure, hydronephrosis, anemia, dehydration, electrolyte imbalance Medication Reconciliation: I attest that I have personally reviewed the patient' s current medication list. Blood Pressure Screening: Patient was found to have normal blood pressure on screening and does not require follow-up. There is no leukocytosis or concerning anemia. No significant electrolyte abnormality, kidney failure or hepatitis. Renal ultrasound does not show hydronephrosis making ureteral obstruction unlikely. Urinalysis does not show infection or hematuria. Urine culture from a few days ago shows Escherichia coli which is resistant to Augmentin. Sensitivity to ceftriaxone was documented. The patient presents with worsening symptoms since being seen here a few days ago. She was diagnosed with UTI and now has pain in the right flank, severe nausea, she feels achy, she feels as if she is worsening. The antibiotic that she has been using will not work for this type of urinary infection. The patient received IV saline, IV Toradol, IV Zofran and IV morphine. She was given IV ceftriaxone. She feels improved. I do think admission/observation is warranted. She requires IV hydration, symptom control, IV antibiotics. She is allergic to a lot of oral meds that could be used for this infection. I did speak to the patient and case management. The on-call hospitalist was consulted. Consults Time Called: 1638 Consulting Physician: Dr. Willy Kovacs, [facility] Hospitalist Returned Call: 1645 I discussed the patients case with Dr. Willy Kovacs [facility] Hospitalist. The patient will be evaluated for further treatment. Impression Primary Impression: Pyelonephritis Additional Impressions: Failure of outpatient treatment Nausea Scribe Attestation The scribe's documentation has been prepared under my direction and personally reviewed by me in its entirety. I confirm that the note above accurately reflects all work, treatment, procedures, and medical decision making performed by me. Departure Information Dispostion Being Evaluated By Hospitalist Referrals Anali Mathias (PCP) Patient Instructions My [facility] Problem Qualifiers
[2017-04-09 16:26] LABS: CALCIUM 8.2 mg/dl (8.5-10.1); CREATININE 0.66 mg/dl (0.60-1.20)
[2017-04-09 16:28] LABS: ALB/GLOB RATIO 0.8 (0.9-2)
[2017-04-09] MEDS ORDERED: LORAZEPAM 0.5 MG TAB PO PRN (17:15)
[2017-04-09] MEDS ORDERED: ALUMINUM/MAGNESIUM/SIMETH (MAALOX MAX) 30 ML UDC PO PRN (17:15)
[2017-04-09] MEDS ORDERED: ACETAMINOPHEN 500 MG TAB PO PRN (17:15)
[2017-04-09] MEDS ORDERED: ZOLPIDEM TARTRATE 5 MG TAB PO PRN (17:15)
[2017-04-09] MEDS ORDERED: MAGNESIUM HYDROXIDE SUSP 30 ML UDC PO PRN (17:15)
[2017-04-09] MEDS ORDERED: DIPHENOXYLATE/ATROPINE 2.5/0.025MG TAB PO PRN (17:15)
[2017-04-09] MEDS ORDERED: SODIUM CHLORIDE 0.65% NA SOLN 45 ML (OCEAN) NAE PRN (17:15)
[2017-04-09] MEDS ORDERED: ONDANSETRON INJ 2 MG/ML 2 ML VIAL IV PRN (17:15)
[2017-04-09 17:36] LABS: CHOLESTEROL/HDL RATIO 4.5
[2017-04-09 17:40] VITALS: Ht 154.9 cm; Wt 128.0 kg
[2017-04-09] MEDS ORDERED: POLYETHYLENE (MIRALAX) 17 GM PACK PO PRN (18:15)
[2017-04-09 18:23] VITALS: BP 132/83; PULSE 74; TEMP 37.1; O2SAT 97
--- NOTE | 2017-04-09 18:49 | HISTORY & PHYSICAL EXAMINATION ---
DATE OF ADMISSION: 04/09/2017 CHIEF COMPLAINT: Right flank pain. HISTORY OF PRESENT ILLNESS: The patient is a 56-year-old white female with past medical history of hypothyroidism, spinal stenosis status post fusion. Recently she had a urinary tract infection and was discharged from ED on Augmentin, while her primary care physician has sent a urinalysis with urine culture. The patient took the Augmentin at home and did not have any improvement, so she came back today with a new developed right flank pain and right costovertebral angle pain. Upon arrival the patient looked diaphoretic and she reported having severe nausea, unable to take her oral medications anyway. Primary care physician has sent her urine culture to the ED and she had grown E. coli that is resistant to Augmentin and sensitive to ceftriaxone. REVIEW OF SYSTEMS: The patient admits to chills but denies any fever. Denies any chest pain or palpitation. Denies any cough, wheezing or shortness of breath except for her chronic regular cough. Denies any vomiting but had severe nausea, unable to take oral intake and abdominal pain in her right flank area and right costovertebral angle. Denies any intentional or unintentional weight loss. Denies any blood in the stools or diarrhea. Denies any focal weakness, tingling, numbness. Denies any joint swelling or pain except for her chronic lower back pain. Denies any new onset rash but does have some radiation injury to the skin in bilateral buttock areas and has some skin lacerations in her skin crease and under her pannus. Denies any depression or suicidal thoughts. Denies any swelling or bruises on her skin. FAMILY HISTORY: Her brother was diagnosed this year with colon cancer, brother has diabetes, both parents have high blood pressure. PAST MEDICAL AND SURGICAL HISTORY: 1. Had spinal stenosis status post fusion. 2. Hypothyroidism. 3. She cauterized her fibroid in the past. 4. Status post appendectomy. 5. Status post partial hysterectomy and tubal ligation. 6. History of hypothyroidism. 7. History of anxiety. SOCIAL HISTORY: Lives with her , does not smoke or drink. HOME MEDICATIONS: 1. Clonazepam 0.5 mg p.o. at bedtime. 2. Coenzyme Q10. 3. Fish oil supplement. 4. Levothyroxine alternating 50 mcg with 75 mcg Synthroid p.o. 5. Multivitamin 1 tablet p.o. daily. 6. Nystatin cream. P.R.N. MEDICATIONS: Acetaminophen, Lomotil, loratadine, lorazepam, naproxen, Zofran and normal saline nasal spray. ALLERGIES: SULFA DRUGS, DIPHENHYDRAMINE, HYDROXYZINE, LEVOFLOXACIN AND QUINOLONES, WHEAT, PREDNISONE AND TRAMADOL. PHYSICAL EXAMINATION: VITAL SIGNS: Temperature 36.8, heart rate 82, respirations 18, blood pressure 118/62, pulse ox 97% on room air. GENERAL: Morbidly obese, not in acute distress but slightly ill looking. HEENT: No jaundice, no pallor with mucous membranes. NECK: Supple. HEART: S1, S2 normal. No gallop, rub or murmur. LUNGS: Clear to auscultation bilaterally. Normal chest wall expansion. ABDOMEN: Soft, had tenderness on the right upper and middle quadrants with severe tenderness in costovertebral angle. No guarding or rebound. BACK: No significant tenderness. EXTREMITIES: No cyanosis or edema. NEUROLOGIC: Awake, alert, oriented to time, place, and person. Moves all extremities. Sensation intact. Cranial nerves II through XII appear to be intact. SKIN: No rash or erythema except square area of radiation injury in both buttocks areas. IMAGING: Ultrasound did show no hydronephrosis in right kidney, left kidney also no hydronephrosis. There was apparently no stones seen on prior CT that was too small to identify and bilateral peripelvic cysts noted. LABORATORY DATA: White blood cell count 5.12, hemoglobin 11.8, platelets 200. BUN 7, creatinine 0.66. Sodium 142, potassium is 4. Urine culture grew E. coli from April 09 resistant to Augmentin, sensitive to ceftriaxone, KYRA less than 1, sensitive to Cipro and levofloxacin. UNFORTUNATELY THE PATIENT IS ALLERGIC TO THAT, SENSITIVE TO BACTRIM, ALSO, THE PATIENT IS ALLERGIC TO THAT. ASSESSMENT AND PLAN: 1. Urinary tract infection, failed outpatient oral therapy with possible complicated right pyelonephritis. The patient has significant tenderness on the right costovertebral angle despite lack of leukocytosis. She does have chills and most likely she does have clinically suspected pyelonephritis. Start ceftriaxone IV daily for at least 48 hours and then she can be switched to p.o. once she is able to tolerate oral intake and in this case she should be discharged on cefdinir 300 mg p.o. b.i.d. to continue a total of 10 days. We will start her on Lactinex for C. diff prophylaxis while she is on antibiotics. IV fluid hydration since she cannot tolerate oral intake at this point. 2. Hypothyroidism. Continue levothyroxine. Check TSH. 3. Morbid obesity, will check her hemoglobin A1c, rule out underlying diabetes that might complicate her urinary tract infection. 4. Chronic lower back pain. Continue her narcotics at home. 5. Anxiety. Continue lorazepam. 6. Heparin subQ for deep venous thrombosis prophylaxis. Further recommendation will follow. MTDD
[2017-04-09] MEDS: SODIUM CHLORIDE 0.9% 1000ML 1,000 ML IV SCH (19:15)
[2017-04-09 19:17] LABS: PARTIAL THROMBOPLASTIN RATIO 1.1; PROTHROMBIN TIME (PATIENT) 10.5 SECONDS (9.0-12.0)
[2017-04-09] MEDS: KETOCONAZOLE 2% CR 15 GM TUBE EXT SCH (22:05)
[2017-04-09] MEDS: CLONAZEPAM 0.5 MG TAB PO SCH (22:05)
[2017-04-09] MEDS: HEPARIN SOD 5000 UNIT/0.5 ML CARP SQ SCH (22:13)
[2017-04-10] MEDS: MoRPHine SULFATE 2 MG/ML CARP IV PRN ×3 (00:05→23:31)
[2017-04-10 00:13] VITALS: BP 106/61; PULSE 80; TEMP 36.7; O2SAT 95
[2017-04-10] MEDS: HEPARIN SOD 5000 UNIT/0.5 ML CARP SQ SCH ×3 (05:53→21:30)
[2017-04-10 06:21] LABS: BASO % 0.5 %; BASO ABS # 0.02 K/uL (0-0.2); COMPLETE YES; EOS % 4.8 %; HEMATOCRIT 35.1 % (37-47); IG% 0.5 %; LYMPH % 37.3 %; LYMPH ABS # 1.56 K/uL (1.2-3.4); MEAN CORPUSCULAR HEMOGLOBIN 27.6 pg (25-34); MEAN CORPUSCULAR HGB CONC 32.5 g/dl (32-36); MEAN PLATELET VOLUME 9.4 fL (7.4-10.4); MONO % 6.5 %; NEUT % 50.4 %; PLATELET COUNT 197 K/uL (130-400); RED BLOOD COUNT 4.13 M/uL (4.2-5.4); WHITE BLOOD COUNT 4.18 K/uL (4.8-10.8)
[2017-04-10] MEDS ORDERED: LEVOTHYROXINE 50 MCG TAB PO SCH (06:30)
[2017-04-10 06:57] VITALS: BP 130/72; PULSE 83; TEMP 37.2; O2SAT 97
[2017-04-10 06:57] LABS: BUN/CREATININE RATIO 11.7 (10-20); CREATININE 0.71 mg/dl (0.60-1.20); POTASSIUM 4.1 mmol/L (3.5-5.1)
[2017-04-10 07:00] LABS: ALB/GLOB RATIO 0.9 (0.9-2)
[2017-04-10 08:00] VITALS: O2SAT 97
[2017-04-10 08:23] LABS: ESTIMATED AVERAGE GLUCOSE 108 mg/dl; HA1C FLAG Normal (Normal)
[2017-04-10] MEDS: OMEGA-3 (PURIFIED FISH OIL) 1 GM CAP PO SCH (09:23)
[2017-04-10] MEDS: LACTOBACILLUS ACIDOPHILUS 1 GM PACK PO SCH ×3 (09:23→16:40)
[2017-04-10] MEDS: MULTIVITAMIN TAB PO SCH (09:24)
[2017-04-10] MEDS: KETOCONAZOLE 2% CR 15 GM TUBE EXT SCH ×2 (09:24→21:29)
[2017-04-10] MEDS: SODIUM CHLORIDE 0.9% 1000ML 1,000 ML IV SCH (09:29)
[2017-04-10] MEDS ORDERED: CEFTRIAXONE SOD INJ 1 GM in DEXTROSE 5% ADD-VANTAGE 50ML 50 ML IV SCH (14:00)
[2017-04-10] MEDS: MoRPHine SULFATE 4 MG/ML 1 ML CARP\\VIAL IV PRN (14:40)
--- NOTE | 2017-04-10 15:14 | Progress Note ---
Subjective Date of Service: Apr 10, 2017. Subjective Pt evaluation today including: conversation w/ patient, conversation w/ family , physical exam, chart review, lab review, review of studies, conversation w/ workers compensation consultant, review of inpatient medication list The posterior lower back pain and mild right flank pain Otherwise doing okay No fever or chill No nausea vomiting Problem List Medical Problems: (1) Back pain Status: Acute (2) Bilateral lower extremity edema Status: Acute (3) Chest pain Status: Acute (4) Diffuse abdominal pain Status: Acute (5) Failure of outpatient treatment Status: Acute (6) Intractable pain Status: Acute (7) Leg swelling Status: Acute (8) Nausea Status: Acute (9) Nausea Status: Acute (10) Pyelonephritis Status: Acute (11) Shortness of breath Status: Acute (12) Substernal chest pain Status: Acute (13) Viral infection Status: Acute (14) Vomiting Status: Acute Review of Systems Constitutional: No fever, No chills, No sweats, No weight loss, No weakness, No fatigue, No problem reported Eyes: No worsening of vision, No eye pain, No redness, No discharge, No diplopia ENT: No hearing loss, No unusual epistaxis, No nasal symptoms, No sore throat, No tinnitus, No dental problems, No trouble swallowing Respiratory: No cough, No sputum, No wheezing, No shortness of breath, No dyspnea on exertion, No dyspnea at rest, No hemoptysis Cardiac: No chest pain, No orthopnea, No PND, No edema, No claudication, No palpitations Abdomen: No pain, No nausea, No vomiting, No diarrhea, No constipation Musculoskeletal: No joint pain, No muscle pain, No swelling, No calf pain Female : No dysuria, No urinary frequency, No hematuria, No incontinence, No abnormal vaginal bleeding, No vaginal discharge Neurologic: No memory loss, No paralysis, No weakness, No numbness/tingling, No vertigo, No balance problems Psychiatric: No depression symptoms, No anhedonism, No anxiety, No insomnia, No substance abuse Heme: No abnormal bleeding/bruising, No clotting problems, No swollen lymph nodes, No night sweats Endo: No fatigue, No excessive thirst, No excessive urination Skin: No rash, No itch, No new/changing skin lesions, No color change, No bleeding Objective Vital Signs Date Time Temp Pulse Resp B/P (MAP) Pulse Ox O2 Delivery O2 Flow Rate FiO2 04/10/17 08:00 97 Room Air 04/10/17 06:57 37.2 83 18 130/72 (91) 97 Room Air 04/10/17 00:13 36.7 80 16 106/61 (76) 95 Room Air 04/10/17 00:00 Room Air 04/09/17 18:23 37.1 74 16 132/83 (99) 97 Room Air 04/09/17 18:04 79 18 130/73 96 Room Air 04/09/17 17:40 Room Air 04/09/17 15:20 82 18 118/62 97 Room Air Physical Exam General Appearance: WD/WN, no apparent distress, + obese Eyes: normal inspection, PERRL, EOMI, sclerae normal ENT: normal ENT inspection, hearing grossly normal, pharynx normal Neck: supple, no adenopathy, thyroid normal, no JVD, no carotid bruits, trachea midline Respiratory/Chest: chest non-tender, lungs clear, normal breath sounds, no respiratory distress, no accessory muscle use Cardiovascular: regular rate, rhythm, no edema, no gallop, no JVD, no murmur Abdomen: normal bowel sounds, non tender, soft, no organomegaly, no pulsatile mass Extremities: normal range of motion, non-tender, normal inspection, no pedal edema, no calf tenderness, normal capillary refill, pelvis stable, + pertinent finding (lower back mild tenderness in palpation) 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, no motor/sensory deficits, alert, normal mood/affect, oriented x 3 Skin: normal color, warm/dry, no rash Lymphatic: no adenopathy Laboratory Results Last 24 Hours Test 04/09/17 16:00 04/09/17 18:57 04/10/17 05:50 White Blood Count 5.12 K/uL 4.18 K/uL Red Blood Count 4.27 M/uL 4.13 M/uL Hemoglobin 11.8 g/dL 11.4 g/dL Hematocrit 35.9 % 35.1 % Mean Corpuscular Volume 84.1 fL 85.0 fL Mean Corpuscular Hemoglobin 27.6 pg 27.6 pg Mean Corpuscular Hemoglobin Concent 32.9 g/dl 32.5 g/dl Platelet Count 200 K/uL 197 K/uL Mean Platelet Volume 9.3 fL 9.4 fL Neutrophils (%) (Auto) 50.5 % 50.4 % Lymphocytes (%) (Auto) 38.1 % 37.3 % Monocytes (%) (Auto) 6.1 % 6.5 % Eosinophils (%) (Auto) 4.1 % 4.8 % Basophils (%) (Auto) 0.6 % 0.5 % Neutrophils # (Auto) 2.59 K/uL 2.11 K/uL Lymphocytes # (Auto) 1.95 K/uL 1.56 K/uL Monocytes # (Auto) 0.31 K/uL 0.27 K/uL Eosinophils # (Auto) 0.21 K/uL 0.20 K/uL Basophils # (Auto) 0.03 K/uL 0.02 K/uL RDW Standard Deviation 43.8 fL 44.5 fL RDW Coefficient of Variation 14.3 % 14.5 % Immature Granulocyte % (Auto) 0.6 % 0.5 % Immature Granulocyte # (Auto) 0.03 K/uL 0.02 K/uL Sodium Level 142 mmol/L 141 mmol/L Potassium Level 4.0 mmol/L 4.1 mmol/L Chloride Level 108 mmol/L 107 mmol/L Carbon Dioxide Level 27 mmol/L 27 mmol/L Anion Gap 7.0 mmol/L 7.0 mmol/L Blood Urea Nitrogen 7 mg/dl 8 mg/dl Creatinine 0.66 mg/dl 0.71 mg/dl Est Creatinine Clear Calc Drug Dose 121.4 ml/min 112.9 ml/min Estimated GFR () 115.3 111.1 Estimated GFR (Non- 99.4 95.9 BUN/Creatinine Ratio 11.0 11.7 Random Glucose 86 mg/dl 95 mg/dl Calcium Level 8.2 mg/dl 8.0 mg/dl Total Bilirubin 0.3 mg/dl 0.4 mg/dl Aspartate Amino Transf (AST/SGOT) 14 U/L 17 U/L Alanine Aminotransferase (ALT/SGPT) 23 U/L 24 U/L Alkaline Phosphatase 62 U/L 56 U/L Total Protein 7.0 gm/dl 6.4 gm/dl Albumin 3.0 gm/dl 3.0 gm/dl Globulin 4.0 gm/dl 3.4 gm/dl Albumin/Globulin Ratio 0.8 0.9 Triglycerides Level 98 mg/dl Cholesterol Level 145 mg/dl HDL Cholesterol 32 mg/dl LDL Cholesterol, Calculated 93 mg/dl VLDL Cholesterol, Calculated 20 mg/dl Cholesterol/HDL Ratio 4.5 Lipase 366 U/L Prothrombin Time 10.5 SECONDS Prothromb Time International Ratio 1.0 Activated Partial Thromboplast Time 28.6 SECONDS Partial Thromboplastin Ratio 1.1 Estimated Average Glucose 108 mg/dl Hemoglobin A1c 5.4 % Magnesium Level 2.0 mg/dl Assessment and Plan 56-year-old white female admitted on 04/09/2017 because of Urinary tract infection, failed outpatient oral therapy Urinary tract infection, failed outpatient oral therapy with possible complicated right pyelonephritis. significant tenderness on the right costovertebral angle despite lack of leukocytosis upon admission. She does have chills and most likely she does have clinically suspected pyelonephritis. Improving Continue ceftriaxone IV daily for at least 48 hours Follow-up culture and sensitivity , she should be discharged on cefdinir 300 mg p.o. b.i.d. to continue a total of 10 days. 2 mm left renal calculus. No ureteral calculi or hydronephrosis, JAQUELIN renal ultrasound study done no us no hydronephrosis Continue on Lactinex for C. diff prophylaxis while she is on antibiotics. Discontinue IV fluid Hypothyroidism. Continue levothyroxine. Check TSH. Morbid obesity, will check her hemoglobin A1c, rule out underlying diabetes that might complicate her urinary tract infection. Chronic lower back pain. Continue her narcotics at home. anxiety. Continue lorazepam. Heparin subQ for deep venous thrombosis prophylaxis. Discussed with patient and , answered all the questions, possible discharge home tomorrow Continued [facility] stay due to: multiple IV medications needed Discharge planning: home
[2017-04-10 15:44] VITALS: BP 138/84; PULSE 80; TEMP 37; O2SAT 94
[2017-04-10 16:20] VITALS: O2SAT 94
[2017-04-10] MEDS: NAPROXEN 375 MG TAB PO PRN (21:29)
[2017-04-10] MEDS: CLONAZEPAM 0.5 MG TAB PO SCH (21:30)
[2017-04-10 23:08] VITALS: BP 111/70; PULSE 81; TEMP 36.9; O2SAT 95
[2017-04-11] MEDS: HEPARIN SOD 5000 UNIT/0.5 ML CARP SQ SCH ×2 (06:00→14:00)
[2017-04-11 06:06] LABS: BUN/CREATININE RATIO 12.4 (10-20); CALCIUM 8.6 mg/dl (8.5-10.1); CREATININE 0.77 mg/dl (0.60-1.20); MAGNESIUM 2.1 mg/dl (1.8-2.4); PHOSPHORUS 3.5 mg/dl (2.5-4.9); POTASSIUM 3.9 mmol/L (3.5-5.1)
[2017-04-11] MEDS ORDERED: LEVOTHYROXINE 75 MCG TAB PO SCH (06:30)
[2017-04-11 07:56] VITALS: BP 122/60; PULSE 75; TEMP 36.7; O2SAT 98
[2017-04-11 08:00] VITALS: O2SAT 98
[2017-04-11] MEDS: LACTOBACILLUS ACIDOPHILUS 1 GM PACK PO SCH ×2 (08:24→14:05)
[2017-04-11] MEDS: MULTIVITAMIN TAB PO SCH (08:25)
[2017-04-11] MEDS: OMEGA-3 (PURIFIED FISH OIL) 1 GM CAP PO SCH (08:25)
[2017-04-11] MEDS: KETOCONAZOLE 2% CR 15 GM TUBE EXT SCH (08:26)
[2017-04-11] MEDS ORDERED: CEFD300C2 PO (08:27)
[2017-04-11] MEDS ORDERED: LCTXP PO (08:27)
[2017-04-11] MEDS: NAPROXEN 375 MG TAB PO PRN (08:28)
[2017-04-11] MEDS ORDERED: CEFDINIR 300 MG CAP PO SCH (09:00)
--- NOTE | 2017-04-11 12:05 | Discharge Instructions ---
Discharge Instructions Date of Service Apr 11, 2017. Admission Reason for Admission: Uti (Uninary Tract Infection) Discharge Discharge Diagnosis / Problem: Urinary tract infection and possible right pyelonephritis Discharge Goals Goal(s): Decrease discomfort, Improve function, Increase independence, Improve disease control, Improve nutritional status, Learn about illness, Diagnostic testing, Therapeutic intervention, Prevent Disease Progression, Specific goals Activity Recommendations Activity Limitations: resume your previous activity . Instructions / Follow-Up Instructions / Follow-Up you have Urinary tract infection and possible right pyelonephritis which is kidney infection I am discharging you on cefdinir 300 mg p.o. b.i.d. to continue a total of 10 days. you have 2 mm left renal calculus, need to follow up with pcp - you need to follow up with your primary care physician in 1 week, - take medication as instructed, never overdose or any misuse, or take with alcohol, because misuse of medicine may cause organ damage or , call your primary care physician if have questions of medicaitons. - call your primary care physician OR go to local emergency room if has any fever/chill, chest pain, shortness of breathing, nausea/vomiting/abdominal pain , facial droop/slurry speech/local weakness, or if has any questions. - fall precaution - diet as instructed - you need to follow up with your subspecialist - you should understand that it is important to follow up the above instruction , and "not following the above instruction" may cause delayed or missed care of your medical conditions which may cause permanent organ damage and even . Current Hospital Diet Patient's current hospital diet: Regular Diet Discharge Diet Recommended Diet: Regular Diet Procedures Procedures Performed: no Pending Studies Studies pending at discharge: no Laboratory Results Hemoglobin A1c Test 04/10/17 05:50 Range/Units Estimated Average Glucose 108 mg/dl Hemoglobin A1c 5.4 4.5-5.6 % Lipid Panel Test 04/09/17 16:00 Range/Units Triglycerides Level 98 0-150 mg/dl Cholesterol Level 145 0-200 mg/dl HDL Cholesterol 32 mg/dl Cholesterol/HDL Ratio 4.5 LDL Cholesterol, Calculated 93 mg/dl Medical Emergencies . Who to Call and When: Medical Emergencies: If at any time you feel your situation is an emergency, please call 911 immediately. . Non-Emergent Contact Non-Emergency issues call your: Primary Care Provider . . "Provider Documentation" section prepared by Dequan Ramos. . VTE Core Measure Inpt VTE Proph given/why not?: Unfractionated heparin SQ
--- NOTE | 2017-04-11 12:06 | Discharge Summary ---
Discharge Summary Date of Service Apr 11, 2017. Discharge Summary Admission Date: Apr 09, 2017 at 17:17 Discharge Date: Apr 11, 2017 Discharge Disposition: Home Principal Diagnosis: Urinary tract infection and possible right pyelonephritis Problems/Secondary Diagnoses: 2 mm left renal calculus, need to follow up with pcp Immunizations: Have You Had Influenza Vaccine: Yes Influenza Vaccine Date: Aug 05, 2015 History of Tetanus Vaccine?: Yes Tetanus Immunization Date: Aug 18, 2010 History of Pneumococcal: Yes Pneumococcal Date: Jul 19, 2013 History of Hepatitis B Vaccine: Unknown Procedures: No Consultations: No Medication Reconciliation New Medications: Cefdinir (Omnicef) 300 Mg Cap 1 CAP PO BID for 8 Days, #16 CAP Lactobacillus Acidophilus (Lactinex Granules) 1 Gm Pack 1 GM PO TIDM for 8 Days Continued Medications: Acetaminophen (Tylenol) 500 Mg Tab 1000 MG PO Q6H PRN for Pain or Fever, TAB Clonazepam (Clonazepam) 0.5 Mg Tab 0.5 MG PO HS Coenzyme Q10 (Ubidecarenone) (Co Q-10) 75 Mg Cap 75 MG PO DAILY, CAP Diphenoxylate W/ Atropine (Lomotil) 1 Tab Tab 1 TAB PO BID PRN for Loose Stool(s) Fish Oil ([place]-3) 1 Ea Cap 1 CAP PO DAILY, CAP Levothyroxine Sodium (Levothyroxine Sodium) 50 Mcg Tab 50 MCG PO Q2D Levothyroxine Sodium (Levothyroxine Sodium) 50 Mcg Tab 75 MCG PO Q2D, TAB Loratadine (Claritin) 10 Mg Tab 10 MG PO DAILY PRN for Allergy Symptoms Lorazepam (Lorazepam) 0.5 Mg Tab 0.5 MG PO DAILY PRN for Anxiety Multiple Vitamin (Multivitamin) 1 Tab Tab 1 TAB PO DAILY, TAB Naproxen (Naproxen) 375 Mg Tab 375 MG PO BID PRN for Arthritic Pain Nystatin (Nystatin Cream) 90 Appln/30 Gm Cr 1 DOSE TOP TID Ondasetron Odt (Zofran Odt) 4 Mg Tab 4 MG SL Q6H PRN for Nausea, TAB ALLOW TABLET TO DISSOLVE IN MOUTH Saline ([place] Nasal [place]) 0.65 % Spr 2 SPRAYS LAI DAILY PRN for Nasal Dryness Discharge Exam up to the chair, and walk Review of Systems: Constitutional: No fever, No chills, No sweats, No weight loss, No weakness , No fatigue, No problem reported ENT: No hearing loss, No unusual epistaxis, No nasal symptoms, No sore throat, No tinnitus, No dental problems, No trouble swallowing, No problem reported Respiratory: No cough, No sputum, No wheezing, No shortness of breath, No dyspnea on exertion, No dyspnea at rest, No hemoptysis, No problem reported Cardiovascular: No chest pain, No orthopnea, No PND, No edema, No claudication, No palpitations, No problem reported Musculoskeletal: + joint pain (mild low back pain is not new) Genitourinary - Female: No dysuria, No urinary frequency, No urinary urgency , No urinary incontinence, No urinary retention, No hematuria, No dysmenorrhea, No menorrhagia, No metrorrhagia, No rash, No vaginal bleeding, No vaginal discharge, No vaginal itching, No vulvodynia, No , No problem reported Neurologic: No memory loss, No paralysis, No weakness, No numbness/tingling , No vertigo, No balance problems, No problem reported Psychiatric: No depression symptoms, No anhedonism, No anxiety, No insomnia , No substance abuse, No problem reported Endocrine: No fatigue, No excessive thirst, No excessive urination, No problem reported Hematologic / Lymphatic: No abnormal bleeding/bruising, No clotting problems , No swollen lymph nodes, No night sweats, No problem reported Integumentary: No rash, No itch, No new/changing skin lesions, No color change, No bleeding, No problem reported Physical Exam: General Appearance: WD/WN, + mild distress, + obese Eyes: normal inspection, PERRL, EOMI ENT: normal ENT inspection, hearing grossly normal, TMs normal Neck: supple, no adenopathy, thyroid normal, no JVD Respiratory/Chest: chest non-tender, no respiratory distress, no accessory muscle use, + decreased breath sounds Cardiovascular: regular rate, rhythm, no edema, no gallop Abdomen / GI: normal bowel sounds, non tender, soft, no organomegaly, no pulsatile mass, + pertinent finding (right CVA has no tender) Extremities: normal inspection, no calf tenderness, normal capillary refill , no pedal edema, normal range of motion 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 significant tenderness on the right costovertebral angle despite lack of leukocytosis upon admission. She does have chills and most likely she does have clinically suspected pyelonephritis. Improving Has been on ceftriaxone IV daily for 48 hours , continue to be stable Tolerated diet , she should be discharged on cefdinir 300 mg p.o. b.i.d. to continue a total of 10 days. 2 mm left renal calculus. No ureteral calculi or hydronephrosis, JAQUELIN renal ultrasound study done no us no hydronephrosis Continue on Lactinex for C. diff prophylaxis while she is on antibiotics. there was no urine culture or blood culture sent upon admission Discontinue IV fluid Hypothyroidism. Continue levothyroxine. Check TSH, which was normal Morbid obesity, will check her hemoglobin A1c, which was 5.4 Chronic lower back pain. Continue her narcotics at home. anxiety. Continue lorazepam. Heparin subQ for deep venous thrombosis prophylaxis. Discussed with patient and , answered all the questions Instructions / Follow-Up you have Urinary tract infection and possible right pyelonephritis which is kidney infection I am discharging you on cefdinir 300 mg p.o. b.i.d. to continue a total of 10 days. you have 2 mm left renal calculus, need to follow up with pcp - you need to follow up with your primary care physician in 1 week, - take medication as instructed, never overdose or any misuse, or take with alcohol, because misuse of medicine may cause organ damage or , call your primary care physician if have questions of medicaitons. - call your primary care physician OR go to local emergency room if has any fever/chill, chest pain, shortness of breathing, nausea/vomiting/abdominal pain , facial droop/slurry speech/local weakness, or if has any questions. - fall precaution - diet as instructed - you need to follow up with your subspecialist - you should understand that it is important to follow up the above instruction , and "not following the above instruction" may cause delayed or missed care of your medical conditions which may cause permanent organ damage and even . Total Time Spent: Less than 30 minutes This includes examination of the patient, discharge planning, medication reconciliation, and communication with other providers. Discharge Instructions Please refer to the electronic Patient Visit Report (Discharge Instructions) for additional information. Additional Copies To Anali Mathias.
[2017-04-11 12:40] VITALS: BP 122/60; PULSE 75; TEMP 36.7; O2SAT 98
[2017-05-13] MEDS ORDERED: PROC1TAB5 PO (14:15)
[2017-05-13] MEDS ORDERED: DIPH50TA10 PO (14:15)
[2017-05-13] MEDS ORDERED: DICL50TA3 PO (14:15)
[2017-07-14] MEDS ORDERED: TURM500T PO (14:14)
== END 2017-04-11 14:58 | disposition home or self-care (01) | DRG 690 ==
LOC: C.EDB 13:15 → C.MS2W 17:17 → ENRESERV 18:01
PROVIDERS: ADMIT Internal Medicine; ATTEND Hospitalist
DX: N12 Tubulo-interstitial nephritis, not specified as acute or chronic (principal); Z68.43 Body mass index [BMI] 50.0-59.9, adult; N20.0 Calculus of kidney; E03.9 Hypothyroidism, unspecified; E66.01 Morbid (severe) obesity due to excess calories; Z98.1 Arthrodesis status; Z79.899 Other long term (current) drug therapy

== ENCOUNTER → 2017-04-13 | Outpatient (CLI) | payer BC ==
[~2017-04-13] MED LIST changes: -AMOX875T PO; +BUSP5TAB59 PO; +CEFD300C2 PO; +CHOL2000 PO; +DICL50TA3 PO; +DIPH50TA10 PO; +LCTXP PO; +NYSCR30 TOP; -NYST80OI TOP; +OXYC1TAB3 PO; +PANT40TA PO; +PROC1TAB5 PO; +PRT/20 PO; +TURM500T PO
--- NOTE | 2017-04-14 08:00 | MAMMOGRAPHY REPORT ---
BILATERAL DIGITAL SCREENING MAMMOGRAM TOMOSYNTHESIS WITH CAD: 04/13/2017 CLINICAL HISTORY: Routine screening. Patient has no complaints. TECHNIQUE: Breast tomosynthesis in addition to standard 2D mammography was performed. Current study was also evaluated with a Computer Aided Detection (CAD) system. COMPARISON: Comparison is made to exams dated: 04/20/2016 mammogram, 03/23/2015 mammogram, 08/17/2013 m ammogram, 03/29/2012 mammogram, 02/08/2011 mammogram, and 02/05/2010 mammogram - [facility]. BREAST COMPOSITION: The tissue of both breasts is almost entirely fatty. FINDINGS: No suspicious masses, calcifications, or areas of architectural distortion are noted in ei ther breast. There has been no significant interval change compared to prior exams. A biopsy marker clip is again noted within the right lateral breast. Bilateral benign appearing calcifications are a gain noted. IMPRESSION: ACR BI-RADS CATEGORY 2: BENIGN There is no mammographic evidence of malignancy. A 1 year screening mammogram is recommended. The pa tient will receive written notification of the results. Approximately 10% of breast cancers are not detected with mammography. A negative mammographic report should not delay biopsy if a clinically suggestive mass is present. Bettina Barillas M.D. ah/:04/13/2017 15:38:08 [employer]: Zaria CASTROR, M, [facility] letter sent: Normal 1/2 BI-RADS Code: ACR BI-RADS Category 2: Benign
== END | disposition home or self-care (01) ==
LOC: C.MAMM 14:02
PROVIDERS: ATTEND Nurse Practitioner Family
DX: Z12.31 Encounter for screening mammogram for malignant neoplasm of breast (principal)

== ENCOUNTER 2017-05-12 14:44 | Inpatient (IN) | payer BC ==
[~2017-05-12] VITALS: Ht 154.9 cm; Wt 128.8 kg
[~2017-05-12 14:44] MED LIST changes: -BUSP5TAB59 PO; -CEFD300C2 PO; -CHOL2000 PO; -DICL50TA3 PO; -DIPH50TA10 PO; -NAPR-1221 PO; +NAPR375T3 PO; -OXYC1TAB3 PO; -PANT40TA PO; -PROC1TAB5 PO; -PRT/20 PO; -TURM500T PO
[2017-05-12 14:51] VITALS: Ht 154.9 cm; Wt 128.8 kg
[2017-05-12] MEDS ORDERED: BUSP5TAB59 PO (15:46)
[2017-05-12] MEDS ORDERED: ONDANSETRON INJ 2 MG/ML 2 ML VIAL IV STA (16:00)
[2017-05-12] MEDS ORDERED: SODIUM CHLORIDE 0.9% 500ML 500 ML IV STA (16:00)
[2017-05-12] MEDS ORDERED: SODIUM CHLORIDE 0.9% 1000ML 1,000 ML IV STA (16:00)
--- NOTE | 2017-05-12 16:10 | EMERGENCY ROOM VISIT NOTE ---
History Report prepared by Macrina: Rolando Moser Under the Supervision of: Dr. Bulmaro Zapata M.D. First contact with patient: 15:53 Chief Complaint: WEAKNESS Stated Complaint: LEFT SIDE SWELLING, WEAKNESS, PAIN, PAIN IN HEAD Nursing Triage Summary: Pt reports left sided weakness and swelling since this morning. Pt also reports back pain on left side. Pt spoke with physician today and instructed to come in to be evaluated. History of Present Illness The patient is a 56 year old female who presents to the Emergency Room with complaints of worsening weakness and numbness down her entire left side that she noticed this morning when she woke up, several hours prior to arrival. The patient is also complaining of sharp pains in her head, and pain down the left side of her back into her left flank. She rates her headache pain and flank pain both as an 8/10 in severity. The headache pains were very sharp in the top of her head last night. She described that the left side of her face felt like there were "spiders crawling" on her cheek. She denies any recent coughing or shortness of breath, but does note feeling some chills yesterday even with the high temperatures recently. The patient met with and discussed her symptoms with her physician today at [place] who tested her urine for a UTI. This urinalysis was unremarkable for any infection. Source of History: patient Onset: Several hours [employer] Position: other (Left side) Quality: numbness (weakness/numbness) Timing: worsening Associated Symptoms: + chills, + headache, + back pain, No cough, No SOB Review of Systems See HPI for pertinent positives & negatives. A total of 10 systems reviewed and were otherwise negative. Past Medical & Surgical Medical Problems: (1) Anxiety (2) Chest pain (3) Hypothyroidism (4) Spinal stenosis (5) TIA (transient ischemic attack) (6) Uterine artery ablation Surgical Problems: (1) History of carpal tunnel surgery of left wrist (2) History of carpal tunnel surgery of right wrist (3) S/P appendectomy (4) S/P cervical spinal fusion (5) S/P lumbar spinal fusion (6) S/P partial hysterectomy (7) S/P tubal ligation Family History Cancer Diabetes mellitus Heart disease Hypertension Lung disease Social History Smoking Status: Never Smoker Alcohol Use: none Drug Use: none Marital Status: Housing Status: lives with family Occupation Status: employed Current/Historical Medications Scheduled Buspirone Hcl (Buspirone Hcl), 5 MG PO HS Clonazepam (Clonazepam), 0.5 MG PO HS Coenzyme Q10 (Ubidecarenone) (Co Q-10), 75 MG PO DAILY Fish Oil ([place]-3), 1 CAP PO DAILY Levothyroxine Sodium (Levothyroxine Sodium), 50 MCG PO Q2D Levothyroxine Sodium (Levothyroxine Sodium), 75 MCG PO Q2D Multiple Vitamin (Multivitamin), 1 TAB PO DAILY Scheduled PRN Acetaminophen (Tylenol), 1,000 MG PO Q6H PRN for Pain or Fever Diphenoxylate W/ Atropine (Lomotil), 1 TAB PO BID PRN for Loose Stool(s) Loratadine (Claritin), 10 MG PO DAILY PRN for Allergy Symptoms Lorazepam (Lorazepam), 0.5 MG PO DAILY PRN for Anxiety Naproxen (Naproxen), 375 MG PO BID PRN for Arthritic Pain Ondasetron Odt (Zofran Odt), 4 MG SL Q6H PRN for Nausea Saline ([place] Nasal [place]), 2 SPRAYS LAI DAILY PRN for Nasal Dryness Allergies Coded Allergies: Sulfa Antibiotics (Verified Allergy, Mild, UNKNOWN, 05/12/17) Diphenhydramine (Verified Allergy, Unknown, in IV form only, 05/12/17) Hydroxyzine (Verified Allergy, Unknown, Unknown, 05/12/17) Vistaril Levofloxacin (Verified Allergy, Unknown, RASH, 05/12/17) Quinolones (Verified Allergy, Unknown, 05/12/17) Wheat (Verified Allergy, Unknown, adverse reaction, 05/12/17) Prednisone (Verified Adverse Reaction, Intermediate, PSYCH COMPLICATIONS, 05/12/17) Tramadol (Verified Adverse Reaction, Intermediate, "OUT OF BODY", 05/12/17) Physical Exam Vital Signs Date Time Temp Pulse Resp B/P (MAP) Pulse Ox O2 Delivery O2 Flow Rate FiO2 05/12/17 20:43 86 16 114/75 96 Room Air 05/12/17 18:47 87 16 121/57 97 Room Air 05/12/17 17:26 88 16 134/83 95 Room Air 05/12/17 14:51 36.8 97 18 116/75 98 Room Air Physical Exam GENERAL: Patient is in no acute distress. HEENT: No acute trauma, normocephalic atraumatic, mucous membranes moist, no nasal congestion, no scleral icterus. NECK: No stridor, no adenopathy, no meningismus, trachea is midline. LUNGS: Clear to auscultation bilaterally, no wheeze, no rhonchi, breath sounds equal. HEART: Without murmurs gallops or rubs, regular rate and rhythm. ABDOMEN: Soft, nontender, bowel sounds positive, no hernias, no peritonitis. EXTREMITIES: No cyanosis or edema, full range of motion of all the joints without pain or difficulty, no signs for acute trauma. NEUROLOGIC: No facial droop or speech slur present on exam. No upper extremity pronator drift or cerebellar dysfunction. Left leg drifting is present but subtle and there is difficulty with left leg cerebellar function. SKIN: No rash, no jaundice, no diaphoresis. Medical Decision & Procedures ER Provider Diagnostic Interpretation: Radiology results as stated below per my review and radiologist interpretation: CHEST ONE VIEW PORTABLE CLINICAL HISTORY: Stroke COMPARISON STUDY: 03/17/2017 FINDINGS: The cardiac and mediastinal contours are normal. There is no evidence of focal pulmonary consolidation. There is no evidence of failure. No pleural effusions are visualized.[ Areas of increased attenuation the lung bases are felt to be secondary to overlying breast tissue. IMPRESSION: Increased density at the lung bases, likely secondary to overlying breast tissue. No active disease in the chest. Electronically signed by: Terrance Sanders M.D. 05/12/2017 4:26 PM Dictated Date/Time: 05/12/2017 4:[address] HEAD WITHOUT CONTRAST (CT) CLINICAL HISTORY: Stroke LEFT-SIDED SWELLING, WEAKNESS, PAIN. HEADACHE. COMPARISON STUDY: 09/01/2015 TECHNIQUE: Axial CT of the brain is performed from the vertex to the skull base. IV contrast was not administered for this examination. A dose lowering technique was utilized adhering to the principles of ALARA. CT DOSE: 751.47 mGy.cm FINDINGS: No intra or extra-axial mass lesions are visualized. There is no CT evidence of acute cortical infarction. There is no evidence of midline shift. There is no acute hemorrhage. No calvarial fractures are visualized. There are minimal white matter hypodensities likely on a small vessel basis. There is no evidence of pathologic ventricular dilatation. There is opacification of a right posterior ethmoid air cell. IMPRESSION: No acute intracranial findings Electronically signed by: Terrance Sanders M.D. 05/12/2017 5:22 PM Dictated Date/Time: 05/12/2017 5:20 PM EXAMINATION: RENAL ULTRASOUND CLINICAL HISTORY: left flank pain COMPARISON STUDY: 04/09/2017 FINDINGS: The right kidney measures 13.2 cm. The left kidney measures 11.7 cm. There is no evidence of hydronephrosis. There is a stable right parapelvic cyst. No bladder abnormalities are visualized. Bilateral ureteral jets were visualized. The liver is of increased echogenicity suggesting hepatic steatosis. IMPRESSION : No solid renal masses identified. No evidence of hydronephrosis. Electronically signed by: Terrance Sanders M.D. 05/12/2017 7:34 PM Dictated Date/Time: 05/12/2017 7:33 PM Laboratory Results 05/12/17 17:32 Red Blood Count 4.58, Mean Corpuscular Volume 84.1, Mean Corpuscular Hemoglobin 28.2, Mean Corpuscular Hemoglobin Concent 33.5, Mean Platelet Volume 9.2, Neutrophils (%) (Auto) 56.9, Lymphocytes (%) (Auto) 31.7, Monocytes (%) (Auto) 7.4, Eosinophils (%) (Auto) 3.2, Basophils (%) (Auto) 0.4, Neutrophils # (Auto) 3.00, Lymphocytes # (Auto) 1.67, Monocytes # (Auto) 0.39, Eosinophils # (Auto) 0.17, Basophils # (Auto) 0.02 05/12/17 17:23 Test 05/12/17 17:23 05/12/17 17:31 05/12/17 17:32 Anion Gap 6.0 mmol/L (3-11) Est Creatinine Clear Calc Drug Dose 118.7 ml/min Estimated GFR () 114.1 Estimated GFR (Non- 98.5 BUN/Creatinine Ratio 16.3 (10-20) Calcium Level 8.9 mg/dl (8.5-10.1) Magnesium Level 1.9 mg/dl (1.8-2.4) Total Bilirubin 0.5 mg/dl (0.2-1) Direct Bilirubin 0.1 mg/dl (0-0.2) Aspartate Amino Transf (AST/SGOT) 16 U/L (15-37) Alanine Aminotransferase (ALT/SGPT) 27 U/L (12-78) Alkaline Phosphatase 69 U/L (45-117) Total Creatine Kinase 47 U/L (26-192) Creatine Kinase MB < 0.5 ng/ml (0.5-3.6) Creatine Kinase MB Ratio (0-3.0) Troponin I < 0.015 ng/ml (0-0.045) Total Protein 7.6 gm/dl (6.4-8.2) Albumin 3.5 gm/dl (3.4-5.0) Free Thyroxine 1.19 ng/dl (0.80-1.60) Prothrombin Time 10.1 SECONDS (9.0-12.0) Prothromb Time International Ratio 0.9 (0.9-1.1) Activated Partial Thromboplast Time 28.7 SECONDS (21.0-31.0) Partial Thromboplastin Ratio 1.1 White Blood Count 5.27 K/uL (4.8-10.8) Red Blood Count 4.58 M/uL (4.2-5.4) Hemoglobin 12.9 g/dL (12.0-16.0) Hematocrit 38.5 % (37-47) Mean Corpuscular Volume 84.1 fL (80-100) Mean Corpuscular Hemoglobin 28.2 pg (25-34) Mean Corpuscular Hemoglobin Concent 33.5 g/dl (32-36) Platelet Count 208 K/uL (130-400) Mean Platelet Volume 9.2 fL (7.4-10.4) Neutrophils (%) (Auto) 56.9 % Lymphocytes (%) (Auto) 31.7 % Monocytes (%) (Auto) 7.4 % Eosinophils (%) (Auto) 3.2 % Basophils (%) (Auto) 0.4 % Neutrophils # (Auto) 3.00 K/uL (1.4-6.5) Lymphocytes # (Auto) 1.67 K/uL (1.2-3.4) Monocytes # (Auto) 0.39 K/uL (0.11-0.59) Eosinophils # (Auto) 0.17 K/uL (0-0.5) Basophils # (Auto) 0.02 K/uL (0-0.2) RDW Standard Deviation 44.8 fL (36.4-46.3) RDW Coefficient of Variation 14.6 % (11.5-14.5) Immature Granulocyte % (Auto) 0.4 % Immature Granulocyte # (Auto) 0.02 K/uL (0.00-0.02) Laboratory results reviewed by me. Medications Administered Medications (Trade) Dose Ordered Sig/Abbi Route Start Time Stop Time Status Last Admin Dose Admin Sodium Chloride 500 ml @ 999 mls/hr Q31M STAT IV 05/12/17 16:00 05/12/17 16:30 DC 05/12/17 16:31 999 MLS/HR Sodium Chloride 1,000 ml @ 125 mls/hr Q8H STAT IV 05/12/17 16:00 05/12/17 23:59 05/12/17 16:30 125 MLS/HR Ondansetron HCl (Zofran Inj) 4 mg NOW STAT IV 05/12/17 16:00 05/12/17 16:05 DC 05/12/17 16:29 4 MG Morphine Sulfate (MoRPHine SULFATE INJ) 4 mg Q15M PRN IV 05/12/17 16:00 05/26/17 15:59 05/12/17 22:38 4 MG ECG Indication: weakness Rate (beats per minute): 83 Rhythm: normal sinus Findings: no acute ischemic change, no ectopy ED Course 1555: The patient was evaluated in room A11. A complete history and physical exam was performed. 1600: Ordered Morphine Sulfate 4 mg IV, Zofran 4 mg IV, Sodium Chloride 1000 mL @ 125 mL/hr IV, Sodium Chloride 500 mL @ 999 mL/hr IV. 0: I checked on the patient at this time. She feels unchanged and still feels weak on the left side. 1951: I discussed the case with Dr. Torrez [facility] Hospitalist. She will evaluate the patient for further treatment. Medical Decision Differential Diagnosis includes; Renal Colic, UTI, migraine, intracranial bleeding, stroke, dehydration, renal stone, musculoskeletal pain, anemia, infection. There is no leukocytosis or concerning anemia. No significant electrolyte abnormality, kidney failure. Brain CT does not show any acute bleed or mass effect. Chest film does not show pneumonia or CHF. Renal ultrasound does not show hydronephrosis. There was no coagulopathy. No evidence for hepatitis. EKG shows a sinus rhythm, no acute ischemia. Cardiac enzyme testing 1 is not consistent with acute cardiac injury. On exam, the patient had some subtle weakness and cerebellar dysfunction in the left lower extremity, no facial droop or speech slurring, no upper extremity weakness or cerebellar dysfunction. The patient presents with a headache and left-sided weakness and heaviness. She did receive IV Zofran, IV morphine and IV saline. Her headache is improved but she still feels weak on the left. The patient may have a complex migraine as the cause for her presentation. Given her persistent symptoms, further workup for possible stroke is warranted. Admission/observation is needed. I spoke to the patient and case management. The on-call hospitalist was consulted. Of note, the patient is not a candidate for TPA. She has had her symptoms all day and is well out of the window for TPA administration. Consults Time Called: 1939 Consulting Physician: Dr. Shan FUENTES Hospitalist Returned Call: 1951 I discussed the case with Dr. Shan FUENTES Hospitalist. She will evaluate the patient for further treatment. Impression Primary Impression: Left-sided weakness Additional Impressions: Headache Left flank pain Scribe Attestation The scribe's documentation has been prepared under my direction and personally reviewed by me in its entirety. I confirm that the note above accurately reflects all work, treatment, procedures, and medical decision making performed by me. Departure Information Dispostion Being Evaluated By Hospitalist Referrals No Doctor, Assigned (PCP) Patient Instructions My [facility] Stroke History Time Last Known Well n/a Stroke t-PA Criteria Reviewed Does NOT meet criteria for t-PA Reason t-PA Not Given Contraindicated Problem Qualifiers
--- NOTE | 2017-05-12 16:28 | DIAGNOSTIC IMAGING REPORT ---
CHEST ONE VIEW PORTABLE CLINICAL HISTORY: Stroke COMPARISON STUDY: 03/17/2017 FINDINGS: The cardiac and mediastinal contours are normal. There is no evidence of focal pulmonary consolidation. There is no evidence of failure. No pleural effusions are visualized.[ Areas of increased attenuation the lung bases are felt to be secondary to overlying breast tissue. IMPRESSION: Increased density at the lung bases, likely secondary to overlying breast tissue. No active disease in the chest. Electronically signed by: Terrance Sanders M.D. 05/12/2017 4:26 PM Dictated Date/Time: 05/12/2017 4:26 PM
[2017-05-12] MEDS: MoRPHine SULFATE 4 MG/ML 1 ML CARP\\VIAL IV PRN ×3 (16:30→22:38)
--- NOTE | 2017-05-12 17:23 | DIAGNOSTIC IMAGING REPORT ---
CT HEAD WITHOUT CONTRAST (CT) CLINICAL HISTORY: Stroke LEFT-SIDED SWELLING, WEAKNESS, PAIN. HEADACHE. COMPARISON STUDY: 09/01/2015 TECHNIQUE: Axial CT of the brain is performed from the vertex to the skull base. IV contrast was not administered for this examination. A dose lowering technique was utilized adhering to the principles of ALARA. CT DOSE: 751.47 mGy.cm FINDINGS: No intra or extra-axial mass lesions are visualized. There is no CT evidence of acute cortical infarction. There is no evidence of midline shift. There is no acute hemorrhage. No calvarial fractures are visualized. There are minimal white matter hypodensities likely on a small vessel basis. There is no evidence of pathologic ventricular dilatation. There is opacification of a right posterior ethmoid air cell. IMPRESSION: No acute intracranial findings Electronically signed by: Terrance Sanders M.D. 05/12/2017 5:22 PM Dictated Date/Time: 05/12/2017 5:20 PM
[2017-05-12 17:48] LABS: BASO % 0.4 %; BASO ABS # 0.02 K/uL (0-0.2); COMPLETE YES; EOS % 3.2 %; HEMATOCRIT 38.5 % (37-47); IG% 0.4 %; LYMPH % 31.7 %; LYMPH ABS # 1.67 K/uL (1.2-3.4); MEAN CELL VOLUME 84.1 fL (80-100); MEAN CORPUSCULAR HEMOGLOBIN 28.2 pg (25-34); MEAN CORPUSCULAR HGB CONC 33.5 g/dl (32-36); MEAN PLATELET VOLUME 9.2 fL (7.4-10.4); MONO % 7.4 %; NEUT % 56.9 %; PLATELET COUNT 208 K/uL (130-400); RED BLOOD COUNT 4.58 M/uL (4.2-5.4); WHITE BLOOD COUNT 5.27 K/uL (4.8-10.8)
[2017-05-12 17:59] LABS: INR 0.9 (0.9-1.1); PARTIAL THROMBOPLASTIN RATIO 1.1; PROTHROMBIN TIME (PATIENT) 10.1 SECONDS (9.0-12.0)
[2017-05-12 18:09] LABS: BLOOD UREA NITROGEN 11 mg/dl (7-18); BUN/CREATININE RATIO 16.3 (10-20); CALCIUM 8.9 mg/dl (8.5-10.1); CARBON DIOXIDE 28 mmol/L (21-32); CHLORIDE 107 mmol/L (98-107); CREATININE 0.68 mg/dl (0.60-1.20); GLUCOSE 86 mg/dl (70-99); MAGNESIUM 1.9 mg/dl (1.8-2.4); POTASSIUM 3.9 mmol/L (3.5-5.1); SODIUM 141 mmol/L (136-145)
[2017-05-12 18:13] LABS: ALKALINE PHOSPHATASE 69 U/L (45-117); ALT/SGPT 27 U/L (12-78); AST/SGOT 16 U/L (15-37)
--- NOTE | 2017-05-12 19:36 | DIAGNOSTIC IMAGING REPORT ---
EXAMINATION: RENAL ULTRASOUND CLINICAL HISTORY: left flank pain COMPARISON STUDY: 04/09/2017 FINDINGS: The right kidney measures 13.2 cm. The left kidney measures 11.7 cm. There is no evidence of hydronephrosis. There is a stable right parapelvic cyst. No bladder abnormalities are visualized. Bilateral ureteral jets were visualized. The liver is of increased echogenicity suggesting hepatic steatosis. IMPRESSION : No solid renal masses identified. No evidence of hydronephrosis. Electronically signed by: Terrance Sanders M.D. 05/12/2017 7:34 PM Dictated Date/Time: 05/12/2017 7:33 PM
[2017-05-12] MEDS ORDERED: CLONAZEPAM 0.5 MG TAB PO SCH (21:00)
[2017-05-12] MEDS ORDERED: ONDANSETRON INJ 2 MG/ML 2 ML VIAL IV PRN (22:00)
[2017-05-12] MEDS ORDERED: LORATADINE 10 MG TAB PO PRN (22:00)
[2017-05-12] MEDS ORDERED: POLYETHYLENE (MIRALAX) 17 GM PACK PO PRN (22:00)
[2017-05-12] MEDS ORDERED: PHARMACIST DISCHARGE MED REC CONSULT PRN (22:00)
[2017-05-12] MEDS ORDERED: ACETAMINOPHEN 325 MG TAB PO PRN (22:00)
--- NOTE | 2017-05-12 22:08 | History and Physical ---
History & Physical Date & Time of Service: May 12, 2017 at 21:56 Chief Complaint: Left Side Swelling, Weakness, Pain, Pain In Head Primary Care Physician: Anali Mathias History of Present Illness Source: patient 56-year-old female with past medical history of anxiety, hypothyroidism, spinal stenosis status post lumbar fusion, ocular migraine presented to the ER with complaints of left-sided paresthesias which started this morning. The patient describes the paresthesias as" spiders crawling". She also complains of a headache which is all over her head, 8/10 in severity with no radiation which had started yesterday. She denies any speech issues. Also complains of "prism like" vision changes in her left eye which had occurred in the ER but has since resolved. Complains of nausea but denies any vomiting. Denies any fevers but has chills. Denies chest pain, shortness of breath, coughing or abdominal pain. She also complains of left-sided flank pain radiating to the groin but denies any urinary symptoms. UA done at her PCPs office was unremarkable Past Medical/Surgical History Medical Problems: (1) Anxiety Status: Chronic (2) Hypothyroidism Status: Chronic (3) Spinal stenosis Status: Chronic (4) Uterine artery ablation Status: Chronic Surgical Problems: (1) History of carpal tunnel surgery of left wrist Status: Chronic (2) History of carpal tunnel surgery of right wrist Status: Chronic (3) S/P appendectomy Status: Chronic (4) S/P cervical spinal fusion Status: Chronic (5) S/P lumbar spinal fusion Status: Chronic (6) S/P partial hysterectomy Status: Chronic (7) S/P tubal ligation Status: Chronic Family History Cancer Diabetes mellitus Heart disease Hypertension Lung disease Social History Smoking Status: Never Smoker Drug Use: none Marital Status: Housing status: lives with family Occupational Status: employed Immunizations History of Influenza Vaccine: Yes Influenza Vaccine Date: Aug 05, 2015 History of Tetanus Vaccine?: Yes Tetanus Immunization Date: Aug 18, 2010 History of Pneumococcal: Yes Pneumococcal Date: Jul 19, 2013 History of Hepatitis B Vaccine: Unknown Multi-Drug Resistant Organisms History of MDRO: No Allergies Coded Allergies: Sulfa Antibiotics (Verified Allergy, Mild, UNKNOWN, 05/12/17) Diphenhydramine (Verified Allergy, Unknown, in IV form only, 05/12/17) Hydroxyzine (Verified Allergy, Unknown, Unknown, 05/12/17) Vistaril Levofloxacin (Verified Allergy, Unknown, RASH, 05/12/17) Quinolones (Verified Allergy, Unknown, 05/12/17) Wheat (Verified Allergy, Unknown, adverse reaction, 05/12/17) Prednisone (Verified Adverse Reaction, Intermediate, PSYCH COMPLICATIONS, 05/12/17) Tramadol (Verified Adverse Reaction, Intermediate, "OUT OF BODY", 05/12/17) Home Medications Scheduled Buspirone Hcl (Buspirone Hcl), 5 MG PO HS Clonazepam (Clonazepam), 0.5 MG PO HS Coenzyme Q10 (Ubidecarenone) (Co Q-10), 75 MG PO DAILY Fish Oil ([place]-3), 1 CAP PO DAILY Levothyroxine Sodium (Levothyroxine Sodium), 50 MCG PO Q2D Levothyroxine Sodium (Levothyroxine Sodium), 75 MCG PO Q2D Multiple Vitamin (Multivitamin), 1 TAB PO DAILY Scheduled PRN Acetaminophen (Tylenol), 1,000 MG PO Q6H PRN for Pain or Fever Diphenoxylate W/ Atropine (Lomotil), 1 TAB PO BID PRN for Loose Stool(s) Loratadine (Claritin), 10 MG PO DAILY PRN for Allergy Symptoms Lorazepam (Lorazepam), 0.5 MG PO DAILY PRN for Anxiety Naproxen (Naproxen), 375 MG PO BID PRN for Arthritic Pain Ondasetron Odt (Zofran Odt), 4 MG SL Q6H PRN for Nausea Saline ([place] Nasal [place]), 2 SPRAYS LAI DAILY PRN for Nasal Dryness Review of Systems Constitutional: No fever, No chills Eyes: No worsening of vision ENT: No hearing loss Respiratory: No cough, No shortness of breath Cardiovascular: No chest pain, No orthopnea Abdomen: No pain, No nausea Musculoskeletal: No joint pain Genitourinary - Female: No dysuria Neurologic: No memory loss Psychiatric: No depression symptoms Endocrine: No fatigue Hematologic / Lymphatic: No abnormal bleeding/bruising Integumentary: No rash Physical Exam Vital Signs Date Time Temp Pulse Resp B/P (MAP) Pulse Ox O2 Delivery O2 Flow Rate FiO2 05/12/17 20:43 86 16 114/75 96 Room Air 05/12/17 18:47 87 16 121/57 97 Room Air 05/12/17 17:26 88 16 134/83 95 Room Air 05/12/17 14:51 36.8 97 18 116/75 98 Room Air General Appearance: WD/WN, no apparent distress Eyes: normal inspection ENT: hearing grossly normal Neck: supple Respiratory/Chest: chest non-tender, lungs clear, normal breath sounds, no respiratory distress, no accessory muscle use Cardiovascular: regular rate, rhythm Abdomen/GI: normal bowel sounds, non tender, soft 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, no motor/sensory deficits, alert, normal mood/affect, oriented x 3 Skin: normal color Diagnostics Laboratory Results Results Past 24 Hours Test 05/12/17 17:23 05/12/17 17:31 05/12/17 17:32 Range/Units Sodium Level 141 136-145 mmol/L Potassium Level 3.9 3.5-5.1 mmol/L Chloride Level 107 98-107 mmol/L Carbon Dioxide Level 28 21-32 mmol/L Anion Gap 6.0 3-11 mmol/L Blood Urea Nitrogen 11 7-18 mg/dl Creatinine 0.68 0.60-1.20 mg/dl Est Creatinine Clear Calc Drug Dose 118.7 ml/min Estimated GFR () 114.1 Estimated GFR (Non- 98.5 BUN/Creatinine Ratio 16.3 10-20 Random Glucose 86 70-99 mg/dl Calcium Level 8.9 8.5-10.1 mg/dl Magnesium Level 1.9 1.8-2.4 mg/dl Total Bilirubin 0.5 0.2-1 mg/dl Direct Bilirubin 0.1 0-0.2 mg/dl Aspartate Amino Transf (AST/SGOT) 16 15-37 U/L Alanine Aminotransferase (ALT/SGPT) 27 12-78 U/L Alkaline Phosphatase 69 45-117 U/L Total Creatine Kinase 47 26-192 U/L Creatine Kinase MB < 0.5 0.5-3.6 ng/ml Creatine Kinase MB Ratio 0-3.0 Troponin I < 0.015 0-0.045 ng/ml Total Protein 7.6 6.4-8.2 gm/dl Albumin 3.5 3.4-5.0 gm/dl Free Thyroxine 1.19 0.80-1.60 ng/dl Prothrombin Time 10.1 9.0-12.0 SECONDS Prothromb Time International Ratio 0.9 0.9-1.1 Activated Partial Thromboplast Time 28.7 21.0-31.0 SECONDS Partial Thromboplastin Ratio 1.1 White Blood Count 5.27 4.8-10.8 K/uL Red Blood Count 4.58 4.2-5.4 M/uL Hemoglobin 12.9 12.0-16.0 g/dL Hematocrit 38.5 37-47 % Mean Corpuscular Volume 84.1 80-100 fL Mean Corpuscular Hemoglobin 28.2 25-34 pg Mean Corpuscular Hemoglobin Concent 33.5 32-36 g/dl Platelet Count 208 130-400 K/uL Mean Platelet Volume 9.2 7.4-10.4 fL Neutrophils (%) (Auto) 56.9 % Lymphocytes (%) (Auto) 31.7 % Monocytes (%) (Auto) 7.4 % Eosinophils (%) (Auto) 3.2 % Basophils (%) (Auto) 0.4 % Neutrophils # (Auto) 3.00 1.4-6.5 K/uL Lymphocytes # (Auto) 1.67 1.2-3.4 K/uL Monocytes # (Auto) 0.39 0.11-0.59 K/uL Eosinophils # (Auto) 0.17 0-0.5 K/uL Basophils # (Auto) 0.02 0-0.2 K/uL RDW Standard Deviation 44.8 36.4-46.3 fL RDW Coefficient of Variation 14.6 11.5-14.5 % Immature Granulocyte % (Auto) 0.4 % Immature Granulocyte # (Auto) 0.02 0.00-0.02 K/uL Diagnostic Radiology [~ rep ct add3]] EXAMINATION: RENAL ULTRASOUND CLINICAL HISTORY: left flank pain COMPARISON STUDY: 04/09/2017 FINDINGS: The right kidney measures 13.2 cm. The left kidney measures 11.7 cm. There is no evidence of hydronephrosis. There is a stable right parapelvic cyst. No bladder abnormalities are visualized. Bilateral ureteral jets were visualized. The liver is of increased echogenicity suggesting hepatic steatosis. IMPRESSION : No solid renal masses identified. No evidence of hydronephrosis. Electronically signed by: Terrance Sanders M.D. 05/12/2017 7:34 PM Dictated Date/Time: 05/12/2017 7:33 PM The status of this report is Signed. Draft = Not yet reviewed or approved by Radiologist. CT HEAD WITHOUT CONTRAST (CT) CLINICAL HISTORY: Stroke LEFT-SIDED SWELLING, WEAKNESS, PAIN. HEADACHE. COMPARISON STUDY: 09/01/2015 TECHNIQUE: Axial CT of the brain is performed from the vertex to the skull base. IV contrast was not administered for this examination. A dose lowering technique was utilized adhering to the principles of ALARA. CT DOSE: 751.47 mGy.cm FINDINGS: No intra or extra-axial mass lesions are visualized. There is no CT evidence of acute cortical infarction. There is no evidence of midline shift. There is no acute hemorrhage. No calvarial fractures are visualized. There are minimal white matter hypodensities likely on a small vessel basis. There is no evidence of pathologic ventricular dilatation. There is opacification of a right posterior ethmoid air cell. IMPRESSION: No acute intracranial findings Electronically signed by: Terrance Sanders M.D. 05/12/2017 5:22 PM Dictated Date/Time: 05/12/2017 5:20 PM CHEST ONE VIEW PORTABLE CLINICAL HISTORY: Stroke COMPARISON STUDY: 03/17/2017 FINDINGS: The cardiac and mediastinal contours are normal. There is no evidence of focal pulmonary consolidation. There is no evidence of failure. No pleural effusions are visualized.[ Areas of increased attenuation the lung bases are felt to be secondary to overlying breast tissue. IMPRESSION: Increased density at the lung bases, likely secondary to overlying breast tissue. No active disease in the chest. Electronically signed by: Terrance Sanders M.D. 05/12/2017 4:26 PM Dictated Date/Time: 05/12/2017 4:26 PM EKG Normal sinus rhythm Low voltage QRS Borderline ECG When compared with ECG of 17-MAR-2017 07:34, No significant change was found Confirmed by Goyo Devi ([id number]) on 05/12/2017 5:25:55 PM Impression Assessment and Plan 56-year-old female with past medical history of anxiety, hypothyroidism, spinal stenosis status post lumbar fusion, ocular migraine presented to the ER with complaints of left-sided paresthesias which started this morning. This is associated with a headache which started yesterday and visual changes described as"prism like" which has since resolved. Patient has a history of ocular migraine Left-sided paresthesias with headache Complex migraine versus TIA - Head CT: No acute findings - MRI brain, MRA head, MRA neck ordered - Lipid panel and hemoglobin A1c ordered - Started on aspirin and statin - Neurology consult - Toradol for pain control, Zofran for nausea Hypothyroidism: - Continue Synthroid Left-sided flank pain: History of pyelonephritis about a month ago - UA unremarkable - Renal ultrasound: No solid renal masses identified. No evidence of hydronephrosis. Anxiety: - Continue BuSpar and Klonopin Full code DVT prophylaxis: SCDs Disposition: Admitted to telemetry Level of Care Telemetry Resuscitation Status FULL RESUSCITATION VTE Prophylaxis VTE Risk Assessment Done? Y/N: Yes Risk Level: Moderate Resident Tracking Resident Involvement: Resident Care Provided Care Provided: Adult Hospital Medicine Reviewed: Pt Seen/Exam by Me History Physician Carpet Binder Supervision Note: I interviewed and examined the patient. Discussed with Dr. Graahm and agree with findings and plan as documented in the note. Any exceptions or clarifications are listed here: Patient presents with acute onset of left-sided facial paresthesias and left upper extremity and left lower extremity heavy sensation although her strength is normal. She had subsequent onset of left frontal unilateral pulsatile severe headache with associated nausea and photophobia. She does have a history of an ocular migraine about one year ago, but otherwise has not had a history of migraines in the past. CT of the head was negative, initial workup with laboratory evaluation and EKG was normal. Vitals reviewed Morbidly obese, no acute distress Regular rate and rhythm, no murmurs Rubs rubs Clear to auscultation bilaterally no wheezes crackles or rhonchi Neuro-: Cranial nerves II through XII grossly intact, strength full throughout at 5 out of 5, sensation intact to light touch throughout upper and lower extremities, Deep tendon reflexes intact 56-year-old female here with left-sided facial paresthesias and subjective left- sided body weakness along with new onset headache. Overall picture seems to point towards complex migraine, but given new onset of symptoms, need to rule out CVA. -MRI of the brain, MRA of the head and neck -Check echo -Monitor on telemetry -Appreciate neurology consult -Toradol when necessary for headache -Aspirin for antiplatelet Documented By: Adriane Torrez
[2017-05-12 22:45] VITALS: O2SAT 96
[2017-05-12 23:23] LABS: URINE APPEARANCE CLEAR (CLEAR); URINE BILIRUBIN NEG (NEG); URINE COLOR YELLOW; URINE NITRITE NEG (NEG); UROBILINOGEN NEG (NEG); ZZUR CULT IF INDIC CLEAN CATCH NO
[2017-05-12 23:24] LABS: MANUAL MICROSCOPIC REQUIRED? NO; REVIEW REQ? NO
[2017-05-12] MEDS ORDERED: MoRPHine SULFATE 2 MG/ML CARP IV PRN (23:30)
[2017-05-12 23:43] LABS: BENZODIAZEPINE, URINE NEG (NEG); COCAINE,URINE NEG (NEG); PHENCYCLIDINE, URINE NEG (NEG)
[2017-05-13] MEDS ORDERED: ASPIRIN 81 MG CHEW PO ONE (00:04)
[2017-05-13] MEDS: SODIUM CHLORIDE 0.9% 1000ML 1,000 ML IV SCH ×2 (00:06→07:47)
[2017-05-13] MEDS: KETOROLAC TROMETHAMINE 30 MG/ML VIAL IV PRN ×3 (00:13→11:53)
[2017-05-13 00:55] VITALS: BP 105/66; PULSE 76; TEMP 36.5
[2017-05-13 03:58] VITALS: BP 94/58; PULSE 74; TEMP 36.5; O2SAT 96
[2017-05-13 04:22] LABS: BASO % 0.4 %; BASO ABS # 0.02 K/uL (0-0.2); COMPLETE YES; EOS % 3.6 %; HEMATOCRIT 37.4 % (37-47); IG% 0.2 %; LYMPH % 28.9 %; LYMPH ABS # 1.44 K/uL (1.2-3.4); MEAN CORPUSCULAR HEMOGLOBIN 27.3 pg (25-34); MEAN CORPUSCULAR HGB CONC 32.1 g/dl (32-36); MEAN PLATELET VOLUME 9.5 fL (7.4-10.4); MONO % 5.4 %; NEUT % 61.5 %; PLATELET COUNT 198 K/uL (130-400); WHITE BLOOD COUNT 4.99 K/uL (4.8-10.8)
[2017-05-13 04:41] LABS: BLOOD UREA NITROGEN 9 mg/dl (7-18); BUN/CREATININE RATIO 14.1 (10-20); CALCIUM 8.4 mg/dl (8.5-10.1); CARBON DIOXIDE 29 mmol/L (21-32); CHLORIDE 108 mmol/L (98-107); CREATININE 0.66 mg/dl (0.60-1.20); GLUCOSE 111 mg/dl (70-99); POTASSIUM 4.2 mmol/L (3.5-5.1); SODIUM 142 mmol/L (136-145)
[2017-05-13 04:46] LABS: CHOLESTEROL 156 mg/dl (0-200); CHOLESTEROL/HDL RATIO 5.2; HDL CHOLESTEROL 30 mg/dl; LDL CHOLESTEROL CALCULATED 100 mg/dl; TRIGLYCERIDES 129 mg/dl (0-150); VERY LOW DENSITY LIPOPROT CALC 26 mg/dl
[2017-05-13 05:39] LABS: LYME DISEASE AB IGG NEG (NEG); LYME DISEASE AB IGM NEG (NEG)
[2017-05-13] MEDS ORDERED: LEVOTHYROXINE 75 MCG TAB PO SCH (06:00)
--- NOTE | 2017-05-13 06:45 | DIAGNOSTIC IMAGING REPORT ---
MRI OF THE BRAIN WITHOUT AND WITH IV CONTRAST CLINICAL HISTORY: Stroke. Left-sided weakness and numbness. COMPARISON STUDY: Head CT September 01, 2015 and May 12, 2017 and MRI of the brain February 13, 2012. TECHNIQUE: Utilizing a 1.5 Johanne magnet and dedicated coil, multiplanar, multiecho imaging of the brain was performed pre and postcontrast administration. IV administration of 13 mL of Gadavist contrast was uneventful. FINDINGS: There are no areas of restricted diffusion. No acute intracranial hemorrhage, midline shift or mass effect is present. Ventricular system is normal. Basilar cisterns are patent. There are no extra-axial collections. Flow-voids for the major intracranial vessels are present. There is no intracranial mass or pathologic enhancement. There are numerous small white matter T2 hyperintense foci with slight increase in number since exam of February 13, 2012. A 6 mm T2 hyperintense focus adjacent to the frontal horn of the right lateral ventricle is unchanged. This is similar to MRI of February 13, 2012. This could reflect a prominent perivascular space. There is small amount of fluid within left mastoid air cells and mild mucosal thickening of the sinuses. IMPRESSION: 1. No acute intracranial findings. 2. No intracranial mass or pathologic enhancement. 3. Multiple white matter T2 hyperintense foci which are nonspecific and could reflect mild small vessel disease or sequela of migraine headaches. The appearance is not typical for demyelinating disease. Electronically signed by: Momo Dumont M.D. 05/13/2017 6:44 AM Dictated Date/Time: 05/13/2017 6:39 AM
--- NOTE | 2017-05-13 06:47 | DIAGNOSTIC IMAGING REPORT ---
MRA OF THE INTRACRANIAL CIRCULATION WITHOUT CONTRAST CLINICAL HISTORY: Stroke - Attention to [place] of [place]. Left-sided weakness and numbness. COMPARISON STUDY: MRA of the intracranial circulation February 13, 2012. TECHNIQUE: Utilizing a 1.5 Johanne magnet and 3-D [id number] technique, unenhanced MRA of the intracranial circulation was obtained. FINDINGS: The bilateral M1, M2, A1 and A2 segments are patent. There is no abrupt vessel cut off or intracranial aneurysm. Posterior circulation is intact. There is an anterior communicating artery and bilateral posterior communicating arteries. IMPRESSION: Normal MRA of the intracranial circulation. Electronically signed by: Momo Dumont M.D. 05/13/2017 6:46 AM Dictated Date/Time: 05/13/2017 6:44 AM
--- NOTE | 2017-05-13 06:52 | DIAGNOSTIC IMAGING REPORT ---
MRA OF THE NECK WITH AND WITHOUT CONTRAST CLINICAL HISTORY: Stroke. Left-sided weakness and numbness. COMPARISON STUDY: Carotid ultrasound February 13, 2012. TECHNIQUE: Unenhanced and contrast-enhanced MRA of the neck was performed. Injection of 13 mL of Gadavist IV was uneventful. NASCET criteria were utilized to estimate the degree of carotid stenosis. FINDINGS: The bilateral common carotid, internal carotid and vertebral arteries are patent. No stenosis is identified within these vessels. There is no evidence for dissection. IMPRESSION: Normal MRA of the neck. Electronically signed by: Momo Dumont M.D. 05/13/2017 6:51 AM Dictated Date/Time: 05/13/2017 6:49 AM
[2017-05-13 08:03] VITALS: BP 99/53; PULSE 75; TEMP 36.4; O2SAT 99
[2017-05-13 08:06] LABS: ESTIMATED AVERAGE GLUCOSE 105 mg/dl; HA1C FLAG Normal (Normal)
[2017-05-13] MEDS ORDERED: ATORVASTATIN 40 MG TAB PO SCH (09:00)
[2017-05-13] MEDS ORDERED: ASPIRIN 81 MG ECTAB PO SCH (09:00)
--- NOTE | 2017-05-13 12:21 | ECHOCARDIOGRAM REPORT ---
*NOTICE TO RECEIVING DEMOCRAT AGENCY This information is strictly Confidential and protected under [place] law. [place] law prohibits you from making any further disclosure of this information unless further disclosure is expressly permitted by the written consent of the person to whom it pertains or is authorized by law. A general authorization for the release of medical or other information is not sufficient for this purpose. Hospital accepts no responsibility if the information is made available to any other person, INCLUDING THE PATIENT. Interpretation Summary * Name: CHICHI COTTON Study Date: 05/13/2017 10:10 AM BP: 94/58 mmHg * Patient Location: [facility]\S\N282\S\2 HR: 74 * : 1960 (M/d/yyy) Gender: Female Height: 61 in * Age: 56 yrs Ethnicity: [place] Weight: 285 lb * Ordering Physician: Marina Graham * Referring Physician: Self, Referred * Performed By: Augustina Morales RDCS * * Reason For Study: TIA * BSA: 2.2 m2 * -- Conclusions -- * The left ventricle is hyperdynamic. * No regional wall motion abnormalities noted. * Ejection Fraction = >70 %. * No significant valvular pathology. Procedure Details * A complete two-dimensional transthoracic echocardiogram was performed (2D, M-mode, Doppler and color flow Doppler). * A saline contrast injection was performed to assess for cardiac shunting. * The injection was performed through an intravenous line in the left arm. * The attending nurse who injected the saline contrast was Ashley Wills RN. * A total of 20 cc of agitated saline was given. Left Ventricle * The left ventricle is normal in size. * There is normal left ventricular wall thickness. * Ejection Fraction = >70 %. * The left ventricle is hyperdynamic. * No regional wall motion abnormalities noted. Right Ventricle * The right ventricle is not well visualized. * The right ventricular systolic function is normal as assessed by tricuspid annular plane systolic excursion (TAPSE) (normal >1.5 cm). Atria * The left atrial size is normal. * Right atrial size is normal. * There is no evidence of atrial septal defect, but resolution does not allow assessment for a patent foramen ovale. Mitral Valve * The mitral valve is grossly normal. * There is no mitral valve stenosis. * Significant mitral regurgitation is absent. Tricuspid Valve * The tricuspid valve is not well visualized, but is grossly normal. * There is no tricuspid stenosis. * Significant tricuspid regurgitation is absent. Aortic Valve * The aortic valve is trileaflet. * The aortic valve opens well. * No hemodynamically significant valvular aortic stenosis. * There is no significant aortic regurgitation. Pulmonic Valve * The pulmonary valve is not well seen, but the Doppler examination is normal without significant regurgitation or stenosis. Great Vessels * The aortic root is normal size. * The pulmonary is not well visualized. Pericardium/Pleural * There is no pericardial effusion. Great Vessels * Normal inferior vena cava size and collapsability with sniff indicates a normal right atrial pressure of 3 mmHg MMode 2D Measurements and Calculations IVSd 0.97 cm LVIDd 4.5 cm LVIDs 2.4 cm LVPWd 1.1 cm IVS/LVPW 0.85 FS 46.4 % EDV(Teich) 91.4 ml ESV(Teich) 20.1 ml EF(Teich) 77.9 % EDV(cubed) 89.8 ml ESV(cubed) 13.8 ml EF(cubed) 84.6 % LV mass(C)d 164.0 grams LV mass(C)dI 74.7 grams/m\S\2 SV(Teich) 71.2 ml SI(Teich) 32.4 ml/m\S\2 SV(cubed) 76.0 ml SI(cubed) 34.6 ml/m\S\2 Ao root diam 2.9 cm Ao root area 6.4 cm\S\2 ACS 2.0 cm LA dimension 2.9 cm asc Aorta Diam 2.9 cm LA/Ao 1.0 LVAd ap4 25.7 cm\S\2 LVLd ap4 7.4 cm EDV(MOD-sp4) 74.8 ml EDV(sp4-el) 75.5 ml LVAs ap4 10.0 cm\S\2 LVLs ap4 5.7 cm ESV(MOD-sp4) 15.6 ml ESV(sp4-el) 14.9 ml EF(MOD-sp4) 79.1 % EF(sp4-el) 80.2 % LVAd ap2 26.6 cm\S\2 LVLd ap2 7.3 cm EDV(MOD-sp2) 82.9 ml EDV(sp2-el) 82.9 ml LVAs ap2 10.7 cm\S\2 LVLs ap2 5.7 cm ESV(MOD-sp2) 18.0 ml ESV(sp2-el) 17.1 ml EF(MOD-sp2) 78.3 % EF(sp2-el) 79.4 % LVLd %diff -2.40 % EDV(MOD-bp) 79.1 ml LVLs %diff 0.37 % ESV(MOD-bp) 16.6 ml EF(MOD-bp) 79.0 % SV(MOD-sp4) 59.1 ml SI(MOD-sp4) 26.9 ml/m\S\2 SV(MOD-sp2) 64.9 ml SI(MOD-sp2) 29.6 ml/m\S\2 SV(MOD-bp) 62.5 ml SI(MOD-bp) 28.5 ml/m\S\2 SV(sp4-el) 60.6 ml SI(sp4-el) 27.6 ml/m\S\2 SV(sp2-el) 65.8 ml SI(sp2-el) 29.9 ml/m\S\2 Doppler Measurements and Calculations MV E max bhanu 132.1 cm/sec MV A max bhanu 118.6 cm/sec MV E/A 1.1 MV dec time 0.31 sec Ao V2 max 157.9 cm/sec Ao max PG 10.0 mmHg Ao max PG (full) 5.2 mmHg LV V1 max PG 4.7 mmHg LV V1 max 108.8 cm/sec PA V2 max 67.1 cm/sec PA max PG 1.8 mmHg PA acc slope 359.1 cm/sec\S\2 PA acc time 0.17 sec TR max bhanu 217.8 cm/sec PA pr(Accel) 4.0 mmHg
[2017-05-13] MEDS ORDERED: PROCHLORPERAZINE MALEATE 10 MG TAB PO PRN (13:00)
--- NOTE | 2017-05-13 13:03 | Neurology Consultation ---
Neurology Consultation Date of Consultation: May 13, 2017. Attending Physician: Goyo Yanes MD Primary Care Physician: Anali Mathias Reason for Consultation: Consultation for TIA versus complex migraine History of Present Illness Source: patient, hospital records This is a 56-year-old right-handed female who presents with headache and left- sided paresthesias/heaviness. She reports that she started to get a headache evening. This headache is similar to ones that she's had in the past but lasted longer than normal. Monday morning she started to have left-sided paresthesias and heaviness. There is no severe overt weakness. Patient describes the paresthesias as though bugs are crawling on her skin. She's never had these type of sensory changes in the past. In addition she had a typical ocular migraine while she was in the emergency room. She describes this as seen prisms in her vision. She reports ocular migraines only been occurring for the last couple years and are rare. She describes a history of sinus headaches for most of her life typically provoked by weather changes with migrainous components to them. She's never been diagnosed with migraine headaches in the past though. She does have a sister with migraine headaches. She describes her headaches as having light and sound sensitivity and rarely nausea. She has 1 headache per week. Typically last hours to under a day. This current headache was mostly located over the left side of her head and orbital region. Had a severe throbbing quality to it. In the past the patient has used Tylenol and Motrin typically with decent relief. If severe she'll go into a dark room and lay down. Typically consumes 2 cups of coffee per day. Reports sleep is poor due to had a CPAP and some occasional back and neck issues. Denies any significant snoring or obstructive sleep apnea symptoms herself. She reports that she was a fit bit that says that she only gets about 2 hours of deep sleep. MRI of brain reported images reviewed by myself and noted to have some mild subcortical T2 hyperintensities that are nonspecific. MRA of the head and neck were unremarkable Labs included unremarkable drug screen except for opioids, negative Lyme, unremarkable UA (patient also presented with some left flank pain that has resolved) Total cholesterol 156, LDL 100, HDL 30, triglycerides 129, hemoglobin A1c 5.3 Echocardiogram unremarkable Patient denies any family history of clotting disorders or strokes at a young age. In terms of allergies or medication side effects, the patient reports a stimulant effect to Benadryl. In addition she has had panic attacks with IV steroids and severe mood irritability with oral steroids Currently the patient reports that she had a headache that was 7/10 this morning before medication and after ketorolac is a 2/10. Still reports that the left side is slightly off. No new neurological symptoms. Patient did confirm that the left-sided paresthesias were slowly progressive and were not sudden in onset. Past Medical/Surgical History Medical Problems: (1) Back pain Status: Acute (2) Bilateral lower extremity edema Status: Acute (3) Chest pain Status: Acute (4) Diffuse abdominal pain Status: Acute (5) Failure of outpatient treatment Status: Acute (6) Headache Status: Acute (7) Intractable pain Status: Acute (8) Left flank pain Status: Acute (9) Left-sided weakness Status: Acute (10) Leg swelling Status: Acute (11) Nausea Status: Acute (12) Nausea Status: Acute (13) Pyelonephritis Status: Acute (14) Shortness of breath Status: Acute (15) Substernal chest pain Status: Acute (16) Viral infection Status: Acute (17) Vomiting Status: Acute Past medical history separate for sarcoidosis, hypothyroid, anxiety, spinal stenosis status post lumbar and cervical fusion, ocular migraines and sinus headaches likely consistent with migraine headaches Family History Family history significant for cancer, diabetes, CAD, hypertension. Sr. has migraine headaches. No family history of clotting disorders or strokes at a young age Social History Patient is normally independent in her activities of daily living. No tobacco use. No alcohol use. No illegal drug use or supplement use. Smoking Status: Never smoker Drug Use: none Marital Status: Housing Status: lives with family Occupation Status: employed Allergies Coded Allergies: Sulfa Antibiotics (Verified Allergy, Mild, UNKNOWN, 05/12/17) Diphenhydramine (Verified Allergy, Unknown, in IV form only, 05/12/17) Hydroxyzine (Verified Allergy, Unknown, Unknown, 05/12/17) Vistaril Levofloxacin (Verified Allergy, Unknown, RASH, 05/12/17) Quinolones (Verified Allergy, Unknown, 05/12/17) Wheat (Verified Allergy, Unknown, adverse reaction, 05/12/17) Prednisone (Verified Adverse Reaction, Intermediate, PSYCH COMPLICATIONS, 05/12/17) Tramadol (Verified Adverse Reaction, Intermediate, "OUT OF BODY", 05/12/17) Current Inpatient Medications Current Inpatient Medications Medications (Trade) Dose Ordered Sig/Abbi Route Start Time Stop Time Status Last Admin Dose Admin Atorvastatin Calcium (Lipitor Tab) 40 mg QAM PO 05/13/17 09:00 06/12/17 08:59 05/13/17 07:47 40 MG Aspirin (Ecotrin Tab) 81 mg QAM PO 05/13/17 09:00 06/12/17 08:59 05/13/17 07:47 81 MG Miscellaneous Information (Pharmacist Discharge Med Rec Consult) 1 ea UD PRN N/A 05/12/17 22:00 06/11/17 21:59 Sodium Chloride 1,000 ml @ 100 mls/hr Q10H IV 05/12/17 21:51 06/11/17 21:50 05/13/17 07:47 100 MLS/HR Acetaminophen (Tylenol Tab) 650 mg Q4H PRN PO 05/12/17 22:00 06/11/17 21:59 05/13/17 10:50 650 MG Ondansetron HCl (Zofran Inj) 4 mg Q6H PRN IV 05/12/17 22:00 06/11/17 21:59 05/13/17 01:14 4 MG Polyethylene (Miralax Powder Packet) 17 gm DAILY PRN PO 05/12/17 22:00 06/11/17 21:59 Buspirone HCl (Buspar Tab) 5 mg HS PO 05/13/17 21:00 06/12/17 20:59 Clonazepam (Klonopin Tab) 0.5 mg HS PO 05/12/17 21:00 06/11/17 20:59 05/13/17 00:11 0.5 MG Levothyroxine Sodium (Synthroid Tab) 50 mcg Q2D@0600 PO 05/14/17 06:00 06/13/17 05:59 Levothyroxine Sodium (Synthroid Tab) 75 mcg Q2D@0600 PO 05/13/17 06:00 06/12/17 05:59 Loratadine (Claritin Tab) 10 mg DAILY PRN PO 05/12/17 22:00 06/11/17 21:59 Ketorolac Tromethamine (Toradol Inj) 30 mg Q6H PRN IV 05/12/17 23:30 05/17/17 23:29 05/13/17 11:53 30 MG Morphine Sulfate (MoRPHine SULFATE INJ) 2 mg Q4H PRN IV 05/12/17 23:30 05/26/17 23:29 Review of Systems Complete review of systems otherwise negative except for the above noted in history of present illness Physical Exam Vital Signs (Past 24 Hrs): Date Time Temp Pulse Resp B/P (MAP) Pulse Ox O2 Delivery O2 Flow Rate FiO2 05/13/17 12:00 Room Air 05/13/17 08:03 36.4 75 16 99/53 (68) 99 Room Air 05/13/17 08:00 Room Air 05/13/17 04:00 Room Air 05/13/17 03:58 36.5 74 18 94/58 (70) 96 Room Air 05/13/17 00:55 36.5 76 16 105/66 Room Air 05/12/17 22:45 72 16 124/76 96 Room Air 05/12/17 20:43 86 16 114/75 96 Room Air 05/12/17 18:47 87 16 121/57 97 Room Air 05/12/17 17:26 88 16 134/83 95 Room Air 05/12/17 14:51 36.8 97 18 116/75 98 Room Air Gen.: Patient is alert and sitting in bed, in no acute distress. HEENT: Normocephalic /atraumatic, no scleral icterus Heart: Regular rate and rhythm Extremities: No gross deformities or rashes noted Neurological examination: Mental status: Patient is alert and oriented x3. Attention and concentration normal for the situation. Good fund of knowledge. Able to give her own history. Speech is fluent without any dysarthria or aphasia noted Cranial nerve: Funduscopic examination was unremarkable. No papilledema. Pupils equally round and reactive to light. Extraocular muscles intact without nystagmus. No facial asymmetry noted. Facial sensation intact, but did report some altered sensation in the left upper face that did not split midline. Tongue is midline. Good palatal elevation. Good shoulder shrug bilaterally. Hearing grossly intact to voice. Strength: 5/5 both proximal and distally in all extremities. There is no arm drift. Tone is normal. Sensation: Grossly intact to light touch in all extremities. Romberg negative. Deep tendon reflexes: +1 in bilateral biceps, brachioradialis and patellar. Coordination: Patient had good finger to nose without dysmetria Station sitting on the side of the bed was normal Laboratory Results Past 24 Hours: 05/13/17 03:50 Red Blood Count 4.40, Mean Corpuscular Volume 85.0, Mean Corpuscular Hemoglobin 27.3, Mean Corpuscular Hemoglobin Concent 32.1, Mean Platelet Volume 9.5, Neutrophils (%) (Auto) 61.5, Lymphocytes (%) (Auto) 28.9, Monocytes (%) (Auto) 5.4, Eosinophils (%) (Auto) 3.6, Basophils (%) (Auto) 0.4, Neutrophils # (Auto) 3.07, Lymphocytes # (Auto) 1.44, Monocytes # (Auto) 0.27, Eosinophils # (Auto) 0.18, Basophils # (Auto) 0.02 05/13/17 03:50 Test 05/12/17 17:23 05/12/17 17:31 05/12/17 17:32 05/13/17 03:50 Magnesium Level 1.9 mg/dl (1.8-2.4) Total Bilirubin 0.5 mg/dl (0.2-1) Direct Bilirubin 0.1 mg/dl (0-0.2) Aspartate Amino Transf (AST/SGOT) 16 U/L (15-37) Alanine Aminotransferase (ALT/SGPT) 27 U/L (12-78) Alkaline Phosphatase 69 U/L (45-117) Total Creatine Kinase 47 U/L (26-192) Creatine Kinase MB < 0.5 ng/ml (0.5-3.6) Creatine Kinase MB Ratio (0-3.0) Total Protein 7.6 gm/dl (6.4-8.2) Albumin 3.5 gm/dl (3.4-5.0) Free Thyroxine 1.19 ng/dl (0.80-1.60) Prothrombin Time 10.1 SECONDS (9.0-12.0) Prothromb Time International Ratio 0.9 (0.9-1.1) Activated Partial Thromboplast Time 28.7 SECONDS (21.0-31.0) Partial Thromboplastin Ratio 1.1 Estimated Average Glucose 105 mg/dl Hemoglobin A1c 5.3 % (4.5-5.6) White Blood Count 4.99 K/uL (4.8-10.8) Red Blood Count 4.40 M/uL (4.2-5.4) Hemoglobin 12.0 g/dL (12.0-16.0) Hematocrit 37.4 % (37-47) Mean Corpuscular Volume 85.0 fL (80-100) Mean Corpuscular Hemoglobin 27.3 pg (25-34) Mean Corpuscular Hemoglobin Concent 32.1 g/dl (32-36) Platelet Count 198 K/uL (130-400) Mean Platelet Volume 9.5 fL (7.4-10.4) Neutrophils (%) (Auto) 61.5 % Lymphocytes (%) (Auto) 28.9 % Monocytes (%) (Auto) 5.4 % Eosinophils (%) (Auto) 3.6 % Basophils (%) (Auto) 0.4 % Neutrophils # (Auto) 3.07 K/uL (1.4-6.5) Lymphocytes # (Auto) 1.44 K/uL (1.2-3.4) Monocytes # (Auto) 0.27 K/uL (0.11-0.59) Eosinophils # (Auto) 0.18 K/uL (0-0.5) Basophils # (Auto) 0.02 K/uL (0-0.2) RDW Standard Deviation 45.0 fL (36.4-46.3) RDW Coefficient of Variation 14.5 % (11.5-14.5) Immature Granulocyte % (Auto) 0.2 % Immature Granulocyte # (Auto) 0.01 K/uL (0.00-0.02) Anion Gap 5.0 mmol/L (3-11) Est Creatinine Clear Calc Drug Dose 122.3 ml/min Estimated GFR () 115.3 Estimated GFR (Non- 99.4 BUN/Creatinine Ratio 14.1 (10-20) Calcium Level 8.4 mg/dl (8.5-10.1) Triglycerides Level 129 mg/dl (0-150) Cholesterol Level 156 mg/dl (0-200) HDL Cholesterol 30 mg/dl LDL Cholesterol, Calculated 100 mg/dl VLDL Cholesterol, Calculated 26 mg/dl Cholesterol/HDL Ratio 5.2 Lyme Disease IgG Antibody NEG (NEG) Lyme Disease IgM Antibody NEG (NEG) Test 05/13/17 11:51 Imaging As noted above in history of present illness Impression This is a 56-year-old female who presents with a prolonged intractable migraine headache with aura and left-sided paresthesias consistent with his complex migraine headache. I do NOT think that this was a TIA or stroke event. Plan May discontinue statin and aspirin since this did not appear to be a stroke or TIA event. Considered as steroid treatment for intractable migraine headache, the patient reports severe mid-side effects to steroid use in the past. Could be reconsidered later on if current migraine headache does not break in the next week. Recommend giving the patient a prescription for diclofenac as needed for headache as an outpatient. Also recommend giving the patient a prescription for Compazine as needed for nausea or migraine headache. If Compazine does not work alone, could reasonably take in combination with Benadryl. If need, the combination of diclofenac, Compazine, and Benadryl could be used in combination as a migraine cocktail as an outpatient. Patient should follow up with primary care physician in one week for reevaluation. If symptoms are not improving or if headaches are worsening or becoming more frequent (such as having 3 headaches days or more every week), can follow-up in the neurology clinic as an outpatient for reevaluation and treatment. From a neurological standpoint, no neurological contraindications to discharge. Thank you for allowing me to participate in this patient's care. If there is any questions or concerns, feel free to call/page me.
[2017-05-13] MEDS ORDERED: PROCHLORPERAZINE MALEATE 10 MG TAB PO STA (13:17)
[2017-05-13 13:54] VITALS: BP 99/53; PULSE 75; TEMP 36.4; O2SAT 99
[2017-05-13] MEDS ORDERED: PROC1TAB5 PO (14:15)
[2017-05-13] MEDS ORDERED: DIPH50TA10 PO (14:15)
[2017-05-13] MEDS ORDERED: DICL50TA3 PO (14:15)
--- NOTE | 2017-05-13 14:21 | Discharge Instructions ---
Discharge Instructions Date of Service May 13, 2017. Admission Reason for Admission: TIA Discharge Discharge Diagnosis / Problem: Atypical migraine headache w/ ocular sx Discharge Goals Goal(s): Decrease discomfort, Improve function Activity Recommendations Activity Limitations: resume your previous activity . Instructions / Follow-Up Instructions / Follow-Up You were admitted to [facility] for tingling (paresthesias) on your left side accompanied by vision changes in your left eye and changes in your speech. You were evaluated extensively w/ lab tests and images of your brain including MRIs of your brain and blood vessels, all of which were normal. You were evaluated by neurology and speech & language pathology as well, and the regimen you were prescribed at discharge was recommended by them. If your headaches continue, please follow up with your primary care or with neurology outpatient clinic for further evaluation and treatment. Get well soon. Current Hospital Diet Patient's current hospital diet: AHA Diet (Heart Healthy) Discharge Diet Recommended Diet: Regular Diet Pending Studies Studies pending at discharge: no Laboratory Results Hemoglobin A1c Test 05/12/17 17:32 Range/Units Estimated Average Glucose 105 mg/dl Hemoglobin A1c 5.3 4.5-5.6 % Lipid Panel Test 05/13/17 03:50 Range/Units Triglycerides Level 129 0-150 mg/dl Cholesterol Level 156 0-200 mg/dl HDL Cholesterol 30 mg/dl Cholesterol/HDL Ratio 5.2 LDL Cholesterol, Calculated 100 mg/dl Medical Emergencies . Who to Call and When: Medical Emergencies: If at any time you feel your situation is an emergency, please call 911 immediately. . Non-Emergent Contact Non-Emergency issues call your: Primary Care Provider Call Non-Emergent contact if: temperature is above 100.5, your pain is worsening, your pain is unusual for you, you have any medication questions . . "Provider Documentation" section prepared by Goyo Yanes. . Tactical Debriefer Officer Recommendations Tactical Debriefer Officer Recommendations: Symptomatic treatment w/ diclofenac, compazine and benadryl and close follow up with your primary care. VTE Core Measure Inpt VTE Proph given/why not?: SCD's
--- NOTE | 2017-05-13 17:10 | Discharge Summary ---
Discharge Summary Date of Service May 13, 2017. Discharge Summary Admission Date: May 12, 2017 at 21:56 Discharge Date: May 13, 2017 Discharge Disposition: Home Principal Diagnosis: Atypical migraine Immunizations: Have You Had Influenza Vaccine: Yes Influenza Vaccine Date: Aug 05, 2015 History of Tetanus Vaccine?: Yes Tetanus Immunization Date: Aug 18, 2010 History of Pneumococcal: Yes Pneumococcal Date: Jul 19, 2013 History of Hepatitis B Vaccine: Unknown Consultations: Neurology Medication Reconciliation New Medications: Diclofenac (Voltaren) 50 Mg Tabec 50 MG PO TID for headache for 3 Days, #9 TAB Diphenhydramine Hcl (Sleep) (Diphenhydramine Hcl) 50 Mg Tab 1 TAB PO TID for headache for 7 Days, #21 TAB 0 Refills Prochlorperazine Maleate (Compazine) 10 Mg Tab 1 TAB PO TID for headache for 7 Days, #21 TAB 0 Refills Continued Medications: Acetaminophen (Tylenol) 500 Mg Tab 1000 MG PO Q6H PRN for Pain or Fever, TAB Buspirone Hcl (Buspirone Hcl) 5 Mg Tab 5 MG PO HS, #90 Clonazepam (Clonazepam) 0.5 Mg Tab 0.5 MG PO HS Coenzyme Q10 (Ubidecarenone) (Co Q-10) 75 Mg Cap 75 MG PO DAILY, CAP Diphenoxylate W/ Atropine (Lomotil) 1 Tab Tab 1 TAB PO BID PRN for Loose Stool(s) Fish Oil ([place]-3) 1 Ea Cap 1 CAP PO DAILY, CAP Levothyroxine Sodium (Levothyroxine Sodium) 50 Mcg Tab 50 MCG PO Q2D Levothyroxine Sodium (Levothyroxine Sodium) 50 Mcg Tab 75 MCG PO Q2D, TAB Loratadine (Claritin) 10 Mg Tab 10 MG PO DAILY PRN for Allergy Symptoms Lorazepam (Lorazepam) 0.5 Mg Tab 0.5 MG PO DAILY PRN for Anxiety Multiple Vitamin (Multivitamin) 1 Tab Tab 1 TAB PO DAILY, TAB Ondasetron Odt (Zofran Odt) 4 Mg Tab 4 MG SL Q6H PRN for Nausea, TAB ALLOW TABLET TO DISSOLVE IN MOUTH Saline ([place] Nasal [place]) 0.65 % Spr 2 SPRAYS LAI DAILY PRN for Nasal Dryness Discontinued Medications: Naproxen (Naproxen) 375 Mg Tab 375 MG PO BID PRN for Arthritic Pain Discharge Exam Pt seen and examined at bedside. Continued improvement in headache w/ resolution of paresthesias and visual disturbance. Feels that she has returned to her baseline but is concerned regarding this atypical presentation of her headache. Reports no nausea, haring changes, CP/SOB, palpitations, lightheadedness, fatigue, leg swelling, fever, chills, neck pain. Review of Systems: Constitutional: No fever, No chills, No weakness, No fatigue Eyes: No worsening of vision, No discharge, No diplopia Respiratory: No cough, No wheezing, No shortness of breath Cardiovascular: No chest pain, No edema, No palpitations Abdomen: No pain, No nausea, No vomiting, No diarrhea Neurologic: No memory loss, No weakness, No numbness/tingling Physical Exam: General Appearance: no apparent distress, + obese Eyes: normal inspection, PERRL, EOMI ENT: normal ENT inspection, hearing grossly normal Neck: supple, no adenopathy Respiratory/Chest: chest non-tender, lungs clear, normal breath sounds, no respiratory distress Cardiovascular: regular rate, rhythm, no edema, no murmur Abdomen / GI: normal bowel sounds, non tender, soft, no organomegaly Neurologic/Psychiatric: bellman driver II-XII nml as tested, no motor/sensory deficits , alert, normal mood/affect, oriented x 3 Hospital Course 56 y/o female h/o anxiety, hypothyroidism, spinal stenosis and ocular migraine who initially presented w/ severe headache w/ paresthesias (left sided) and left sided visual changes. Treated w/ toradol with improvement and nausea controlled w/ zofran with gradual resolution in non-pain symptoms and significant improvement in headache. Neurology evaluation w/ multiple imaging modalities including CT, MRI/MRA brain, MRA neck without apparent acute event. Ocular migraine - discharged w/ diclofenac for pain control with accompanying compazine and benadryl. Reviewed impact of benadryl and potential MARILY which have been previously experienced by patient, will trial the drug and hold if intolerable effects occur. Instructed to follow up with primary care provider following discharge and with neurology clinic if symptoms persist or change. Hypothyroidism - continue Synthroid Left-sided flank pain - resolved - UA wnl, renal US w/o apparent acute findings Anxiety - continue home regimen of BuSpar and Klonopin Total Time Spent: Greater than 30 minutes This includes examination of the patient, discharge planning, medication reconciliation, and communication with other providers. Discharge Instructions Please refer to the electronic Patient Visit Report (Discharge Instructions) for additional information.
[2017-05-14] MEDS ORDERED: LEVOTHYROXINE 50 MCG TAB PO SCH (06:00)
[2017-05-15 03:18] LABS: COD UR NEGATIVE NG/ML (CUTOFF=50); HYDROCOD UR NEGATIVE NG/ML (CUTOFF=50); HYDROMOR UR NEGATIVE NG/ML (CUTOFF=50); MORPHINE UR 6340 NG/ML (CUTOFF=50); NORHYDROCODONE CONF UR NEGATIVE NG/ML (CUTOFF=50); OXYMORPH UR NEGATIVE NG/ML (CUTOFF=50)
== END 2017-05-13 16:00 | disposition home or self-care (01) | DRG 103 ==
LOC: C.EDB 14:46 → C.MED 21:56 → ENRESERV 22:39
PROVIDERS: ADMIT Family Medicine; ATTEND Family Medicine
DX: G43.919 Migraine, unspecified, intractable, without status migrainosus (principal); F41.9 Anxiety disorder, unspecified; E03.9 Hypothyroidism, unspecified; Z98.1 Arthrodesis status; Z83.3 Family history of diabetes mellitus; Z82.49 Family history of ischemic heart disease and other diseases of the circulatory system; R10.9 Unspecified abdominal pain

== ENCOUNTER → 2017-05-17 | Day surgery (SDC) | payer BC ==
[2017-05-16 13:24] VITALS: Ht 154.9 cm; Wt 129.6 kg
[~2017-05-17] VITALS: Ht 154.9 cm; Wt 129.6 kg
[~2017-05-17] MED LIST changes: +ALUMINUM/MAGNESIUM SUSP 30 ML UDC PO STA; +BUSP5TAB59 PO; +CHOL2000 PO; +FENTANYL CITRATE INJ 50 MCG/1 ML 2 ML VIAL ONE; -LCTXP PO; +LIDOCAINE HCL 2% 2 ML VIAL (20MG/ML) ONE; -NAPR375T3 PO; -NYSCR30 TOP; +OXYC1TAB3 PO; +PANT40TA PO; +PROPOFOL IV EMULSION 10 MG/ML 20 ML VIAL IV ONE; +PRT/20 PO; +TURM500T PEG
--- NOTE | 2017-05-17 15:16 | Endo History and Physical ---
History & Physical Date of Service: May 17, 2017. Chief Complaint: dysphagia ,chest pressure Referring Physician: Anali ALVARADO History of Present Illness dysphagia Past Medical History Anxiety, Thyroid Disease Past Surgical History Hx Cardiac Surgery: No Hx Internal Defibrillator: No Hx Pacemaker: No Hx Abdominal Surgery: Yes ( X4, HYSTER AND OOPHORECTOMY, APPY) Hx of Implantable Prosthesis: No Hx Post-Op Nausea and Vomiting: No Hx Cancer Surgery: No Hx Thoracic Surgery: No Hx Orthopedic: Yes (LUMBAR SURGERY, CERVICAL FUSION 1-LEVEL (FULL ROM)) Hx Urinary Tract Surgery: No Family History None Social History Smoking Status: Never Smoker Hx Substance Use: No Hx Alcohol Use: No Allergies Coded Allergies: Sulfa Antibiotics (Verified Allergy, Mild, GI UPSET, 05/16/17) Diphenhydramine (Verified Allergy, Unknown, "KEEPS ME AWAKE INSTEAD OF MAKING ME SLEEPY", 05/16/17) Hydroxyzine (Verified Allergy, Unknown, PT DOESN'T REMEMBER REACTION, 05/16) Levofloxacin (Verified Allergy, Unknown, RASH, 05/16/17) Quinolones (Verified Allergy, Unknown, RASH, 05/16/17) Wheat (Verified Allergy, Unknown, GI SENSITIVITY, 05/16/17) Prednisone (Verified Adverse Reaction, Intermediate, PSYCH COMPLICATIONS, 05/16/17) Tramadol (Verified Adverse Reaction, Intermediate, "OUT OF BODY", 05/16/17) Current Medications Reported Home Medications Medications Dose Route/Sig Max Daily Dose Days Date Category Dose Instructions Buspirone Hcl 5 Mg Tab 5 Mg PO HS 05/12/17 Reported [place]-3 (Fish Oil) 1 Ea Cap 1 Cap PO DAILY 04/06/17 Reported Zofran Odt (Ondansetron HCl) 4 Mg Tab 4 Mg SL Q6H PRN 04/06/17 Reported ALLOW TABLET TO DISSOLVE IN MOUTH Levothyroxine Sodium 50 Mcg Tab 75 Mcg PO Q2D 04/06/17 Reported Levothyroxine Sodium 50 Mcg Tab 50 Mcg PO Q2D 04/06/17 Reported Lorazepam 0.5 Mg Tab 0.5 Mg PO DAILY PRN 03/17/17 Reported Multivitamin (Multiple Vitamin) 1 Tab Tab 1 Tab PO DAILY 02/08/17 Reported Clonazepam 0.5 Mg Tab 0.5 Mg PO HS 04/24/16 Reported Co Q-10 (Coenzyme Q10 (Ubidecarenone)) 75 Mg Cap 75 Mg PO DAILY 04/12/16 Reported Tylenol (Acetaminophen) 500 Mg Tab 1,000 Mg PO Q6H PRN 09/11/15 Reported Claritin (Loratadine) 10 Mg Tab 10 Mg PO DAILY PRN 06/30/14 Reported [place] Nasal [place] (Saline) 0.65 % Spr 2 Sprays LAI DAILY PRN 07/10/13 Reported Lomotil (Diphenoxylate W/ Atropine) 1 Tab Tab 1 Tab PO BID PRN 07/10/13 Reported Vital Signs Weight (Kilograms): 129.55 Height (Feet): 5 Height (Inches): 1 Date Time Temp Pulse Resp B/P (MAP) Pulse Ox O2 Delivery O2 Flow Rate FiO2 05/17/17 14:08 36.9 104 20 120/73 (89) 98 Room Air Physical Exam AAOx3 Nls1s2 Lungs CTA Abd soft NT/ND + BS - CCE Assessment and Plan EGD bx and possible dilation
--- NOTE | 2017-05-17 15:52 | Discharge Instructions ---
Endoscopy Patient Instructions Date / Procedure(s) Performed May 17, 2017. EGD Allergy Information Coded Allergies: Sulfa Antibiotics (Verified Allergy, Mild, GI UPSET, 05/16/17) Diphenhydramine (Verified Allergy, Unknown, "KEEPS ME AWAKE INSTEAD OF MAKING ME SLEEPY", 05/16/17) Hydroxyzine (Verified Allergy, Unknown, PT DOESN'T REMEMBER REACTION, 05/16) Levofloxacin (Verified Allergy, Unknown, RASH, 05/16/17) Quinolones (Verified Allergy, Unknown, RASH, 05/16/17) Wheat (Verified Allergy, Unknown, GI SENSITIVITY, 05/16/17) Prednisone (Verified Adverse Reaction, Intermediate, PSYCH COMPLICATIONS, 05/16/17) Tramadol (Verified Adverse Reaction, Intermediate, "OUT OF BODY", 05/16/17) Discharge Date / Findings May 17, 2017. normal EGD Medication Instructions Stopped Medication(s): hold Ibuprofen Provider Instructions Activity Restrictions - No exercising or heavy lifting for 24 hours. - Do not drink alcohol the day of the procedure. - Do not drive a car or operate machinery until the day after the procedure. - Do not make any important decisions or sign important papers in 24 hours after the procedure. Following Day: - Return to full activity which may include returning to work/school. Diet Start your diet with liquids and light foods (jello, soup, juice, toast). Then eat your usual diet if not nauseated. Treatment For Common After Affects For mild abdominal pain, bloating, or excessive gas: - Rest - Eat lightly - Lie on right side Follow-Up Information Follow-up with Anali ALVARADO as scheduled Anesthesia Information What You Should Know You have had a procedure that required some medicine to reduce anxiety and discomfort. This treatment is called moderate sedation. After receiving the treatment, you may be sleepy, but you will be able to breathe on your own. The effects of the treatment may last for several hours. Follow these instructions along with Activity/Diet recommendations noted above: * Do NOT do anything where dizziness or clumsiness would be dangerous. * Rest quietly at home today, then you can be up and about tomorrow. * Have a responsible person stay with you the rest of today. * You may have had an I.V. today. If so, you may take the dressing off later today. Recommendations Call your doctor if: * Trouble breathing * Continuous vomiting for more than 24 hours * Temperature above 101 degrees * Severe abdominal pain or bloating * Pain not relieved by pain medicine ordered * There is increased drainage or redness from any incision * A large amount of rectal bleeding greater than 2-3 tablespoons. (If you had a polyp/s removed or have hemorrhoids, a small amount of blood - from the rectum is to be expected.) * You have any unanswered questions or concerns. IN THE EVENT OF A SERIOUS EMERGENCY, GO TO THE NEAREST EMERGENCY ROOM Your discharge instructions were prepared by provider Jai Shea. Patient Instructions Signature Page Beryl Villanueva Patient (or Guardian) Signature/Date: I have read and understand the instructions given to me by my caregivers. Caregiver/RN/Doctor Signature/Date: The above-named patient and/or guardian has received patient instructions on this date. + Original Patient Signature Page (only) stays with chart. Please make copy for patient.
--- NOTE | 2017-05-17 16:19 | GI REPORT ---
Procedure Date: 05/17/2017 3:27 PM Procedure: Upper GI endoscopy Indications: Esophageal dysphagia, Chest pain (non cardiac) Medicines: Propofol per Anesthesia Complications: No immediate complications. Estimated blood loss: Minimal. Estimated Blood Loss: Estimated blood loss was minimal. Estimated blood loss was minimal. Procedure: Pre-Anesthesia Assessment: - Prior to the procedure, a History and Physical was performed, and patient medications and allergies were reviewed. The patient's tolerance of previous anesthesia was also reviewed. The risks and benefits of the procedure and the sedation options and risks were discussed with the patient. All questions were answered, and informed consent was obtained. Prior Anticoagulants: The patient has taken no previous anticoagulant or antiplatelet agents. ASA Grade Assessment: III - A patient with severe systemic disease. After reviewing the risks and benefits, the patient was deemed in satisfactory condition to undergo the procedure. After obtaining informed consent, the endoscope was passed under direct vision. Throughout the procedure, the patient's blood pressure, pulse, and oxygen saturations were monitored continuously. The scope was introduced through the mouth, and advanced to the second part of duodenum. The upper GI endoscopy was accomplished without difficulty. The patient tolerated the procedure well. Findings: The examined esophagus was normal. The Z-line was regular and was found 40 cm from the incisors. The entire examined stomach was normal. The examined duodenum was normal. The examined esophagus was normal. A guidewire was placed and the scope was withdrawn. Dilation was performed with a Savary dilator with mild resistance at 60 Fr. Estimated blood loss was minimal. The gastric body and gastric antrum were normal. Biopsies were taken with a cold forceps for Helicobacter pylori testing. The examined duodenum was normal. Biopsies for histology were taken with a cold forceps for evaluation of celiac disease. Estimated blood loss was minimal. Verification of patient identification for the specimen was done by the physician and respiratory therapy technician using the patient's name and medical record number. The cardia and gastric fundus were normal on retroflexion. Retained gastric contents are not identified on this exam. Impression: - Normal esophagus. - Z-line regular, 40 cm from the incisors. - Normal stomach. - Normal examined duodenum. - Normal esophagus. Dilated. - Normal gastric body and antrum. Biopsied. - Normal examined duodenum. Biopsied. Recommendation: - Return to GI clinic as previously scheduled. - Continue present medications. - Discharge patient to home (ambulatory). - Patient has a contact number available for emergencies. The signs and symptoms of potential delayed complications were discussed with the patient. Return to normal activities tomorrow. Written discharge instructions were provided to the patient. - Advance diet as tolerated. - Return to referring physician as previously scheduled. MD Jai Peters MD 05/17/2017 4:19:24 PM This report has been signed electronically. Note Initiated On: 05/17/2017 3:27 PM I attest to the content of the Intraoperative Record and orders documented therein, exceptions below
[2017-05-17 16:20] VITALS: BP 123/77; PULSE 93; O2SAT 100
--- NOTE | 2017-05-17 16:41 | Anesthesiology Progress Note ---
Anesthesia Post Op Note Date & Time May 17, 2017 at 16:41 Vital Signs Pain Intensity: 9 Vital Signs Past 12 Hours Date Time Temp Pulse Resp B/P (MAP) Pulse Ox O2 Delivery O2 Flow Rate FiO2 05/17/17 16:20 93 20 123/77 (92) 100 Room Air 05/17/17 16:08 97 20 116/75 (89) 98 Room Air 05/17/17 15:53 103 20 118/72 (87) 94 Room Air 05/17/17 14:08 36.9 104 20 120/73 (89) 98 Room Air Notes Mental Status: alert / awake / arousable, participated in evaluation Pt Amnestic to Procedure: Yes Nausea / Vomiting: adequately controlled Pain: adequately controlled Airway Patency, RR, SpO2: stable & adequate BP & HR: stable & adequate Hydration State: stable & adequate Anesthetic Complications: no major complications apparent
[2017-05-17 16:47] VITALS: TEMP 36.9
== END | disposition home or self-care (01) ==
LOC: C.GI 13:41
PROVIDERS: ATTEND Internal Medicine Gastroenterology
DX: R13.10 Dysphagia, unspecified (principal); R07.89 Other chest pain; E07.9 Disorder of thyroid, unspecified; Z90.710 Acquired absence of both cervix and uterus; Z90.49 Acquired absence of other specified parts of digestive tract; Z90.721 Acquired absence of ovaries, unilateral; Z98.1 Arthrodesis status

== ENCOUNTER → 2017-06-06 | Outpatient (CLI) | payer BC ==
[~2017-06-06] MED LIST changes: -ALUMINUM/MAGNESIUM SUSP 30 ML UDC PO STA; -FENTANYL CITRATE INJ 50 MCG/1 ML 2 ML VIAL ONE; -LIDOCAINE HCL 2% 2 ML VIAL (20MG/ML) ONE; -PROPOFOL IV EMULSION 10 MG/ML 20 ML VIAL IV ONE
[2017-06-06 15:10] LABS: BASO % 0.6 %; BASO ABS # 0.03 K/uL (0-0.2); EOS % 2.8 %; HEMATOCRIT 39.7 % (37-47); IG% 0.4 %; LYMPH % 31.4 %; LYMPH ABS # 1.68 K/uL (1.2-3.4); MEAN CELL VOLUME 84.1 fL (80-100); MEAN CORPUSCULAR HEMOGLOBIN 28.2 pg (25-34); MEAN PLATELET VOLUME 9.3 fL (7.4-10.4); MONO % 6.4 %; NEUT % 58.4 %; PLATELET COUNT 272 K/uL (130-400); RED BLOOD COUNT 4.72 M/uL (4.2-5.4); WHITE BLOOD COUNT 5.35 K/uL (4.8-10.8)
[2017-06-06 15:32] LABS: BLOOD UREA NITROGEN 8 mg/dl (7-18); BUN/CREATININE RATIO 11.7 (10-20); CALCIUM 9.3 mg/dl (8.5-10.1); CARBON DIOXIDE 26 mmol/L (21-32); CHLORIDE 105 mmol/L (98-107); GLUCOSE 97 mg/dl (70-99); SODIUM 138 mmol/L (136-145)
--- NOTE | 2017-06-06 15:36 | DIAGNOSTIC IMAGING REPORT ---
ABDOMEN COMPLETE (US) CLINICAL HISTORY: 56 years-old Female presenting with ABDOMINAL PAIN. TECHNIQUE: Real-time grayscale and limited color Doppler ultrasound imaging of the abdomen was performed. COMPARISON: 05/12/[address] from 04/06/2017. FINDINGS: Pancreas: Visualized portions of the pancreatic head and body normal. Liver: Moderately hyperechogenic parenchyma with partial obscuration of the right hemidiaphragm, likely indicating moderate steatosis. The liver measures 19.7 cm in maximal sagittal dimension. Main portal vein patent with normal directional flow. Biliary: No intrahepatic biliary ductal dilatation. Common bile duct measures up to 5 mm in diameter. Gallbladder: Normal in appearance without evidence of gallstones, gallbladder wall thickening, or pericholecystic fluid. Spleen: Normal in echogenicity and size, measuring 12.9 cm in length. Kidneys: Normal in size and echogenicity. Right kidney measures 12.4 cm, and left kidney measures 11.9 cm. Small anechoic region in the right renal sinus likely indicates simple parapelvic cyst. Parapelvic cyst may also be present in the left kidney, although this was better demonstrated on prior CT. No hydronephrosis. Vasculature: Visualized portions of the IVC and abdominal aorta normal. Ascites: None. IMPRESSION: 1. Hepatic steatosis. 2. No evidence of cholelithiasis or biliary duct dilatation. Electronically signed by: Jamel Mckenzie M.D. 06/06/2017 3:35 PM Dictated Date/Time: 06/06/2017 3:31 PM
[2017-06-06 16:01] LABS: COMPLETE YES; MEAN CORPUSCULAR HGB CONC 33.5 g/dl (32-36)
== END | disposition home or self-care (01) ==
LOC: C.ULTR 14:28
PROVIDERS: ATTEND Student in an Organized Health Care Education/Training Program
DX: R10.9 Unspecified abdominal pain (principal); K76.0 Fatty (change of) liver, not elsewhere classified

== ENCOUNTER 2017-07-14 11:37 | Emergency (ER) | payer BC ==
[~2017-07-14] VITALS: Ht 154.9 cm; Wt 127.0 kg
[~2017-07-14 11:37] MED LIST changes: -CHOL2000 PO; -OXYC1TAB3 PO; -PANT40TA PO; -PRT/20 PO; -TURM500T PEG
[2017-07-14 11:41] VITALS: TEMP 37.1; Ht 154.9 cm; Wt 127.0 kg
[2017-07-14] MEDS ORDERED: PROMETHAZINE HCL INJ 25 MG in SODIUM CHLORIDE 0.9% 50ML 50 ML IV STA (11:57)
--- NOTE | 2017-07-14 12:04 | EMERGENCY ROOM VISIT NOTE ---
History Report prepared by Macrina: Dominic Kang Under the Supervision of: Dr. Robert Sarabia D.O. First contact with patient: 11:55 Chief Complaint: HEADACHE Stated Complaint: MIGRAINE, NAUSEA History of Present Illness The patient is a 56 year old female who presents to the Emergency Room with complaints of a persistent left-sided headache that started 2 days ago. She says that the pain is severe and she rates the pain as an 11 out of 10 in severity. The patient notes that she has a history of migraines, but they are always right-sided and are never this painful. She states that she is having radiation of pain to her jaw and neck as well. She says that she has had left- sided weakness and shortness of breath the past few days. Her primary care physician was concerned for a possible TIA. The patient denies any difficulty ambulating. She says that she has been taking Sudafed, Tylenol, Ibuprofen, and Claritin for the pain. She states that she has not been put on any new medications recently. She notes no history of stroke or atrial fibrillation. She does note a history of occasional palpitations. She is not on any blood thinners. Source of History: patient, nursing staff Onset: 2 days ago Position: head (left sided) Timing: other (persistent) Associated Symptoms: + neck pain, + SOB, + weakness (left sided) Note: Associated symptoms: Jaw pain. Denies difficulty ambulating. Review of Systems See HPI for pertinent positives & negatives. A total of 10 systems reviewed and were otherwise negative. Past Medical & Surgical Medical Problems: (1) Anxiety (2) Chest pain (3) Hypothyroidism (4) Spinal stenosis (5) TIA (transient ischemic attack) (6) Uterine artery ablation Surgical Problems: (1) History of carpal tunnel surgery of left wrist (2) History of carpal tunnel surgery of right wrist (3) S/P appendectomy (4) S/P cervical spinal fusion (5) S/P lumbar spinal fusion (6) S/P partial hysterectomy (7) S/P tubal ligation Family History Cancer Diabetes mellitus Heart disease Hypertension Lung disease Social History Smoking Status: Never Smoker Alcohol Use: none Drug Use: none Marital Status: Housing Status: lives with family Occupation Status: employed Current/Historical Medications Scheduled Buspirone Hcl (Buspirone Hcl), 5 MG PO TID Cholecalciferol (Vitamin D3), 1 CAP PO DAILY Clonazepam (Clonazepam), 0.5 MG PO HS Coenzyme Q10 (Ubidecarenone) (Co Q-10), 75 MG PO DAILY Fish Oil ([place]-3), 1 CAP PO DAILY Levothyroxine Sodium (Levothyroxine Sodium), 50 MCG PO Q2D Levothyroxine Sodium (Levothyroxine Sodium), 75 MCG PO Q2D Multiple Vitamin (Multivitamin), 1 TAB PO DAILY Pantoprazole (Protonix), 40 MG PO DAILY Pantoprazole (Protonix), 20 MG PO DAILY Turmeric (Curcuma Longa) (Turmeric), 1 TAB PEG DAILY Scheduled PRN Acetaminophen (Tylenol), 1,000 MG PO Q6H PRN for Pain or Fever Diphenoxylate W/ Atropine (Lomotil), 1 TAB PO BID PRN for Loose Stool(s) Loratadine (Claritin), 10 MG PO DAILY PRN for Allergy Symptoms Lorazepam (Lorazepam), 0.5 MG PO DAILY PRN for Anxiety Ondasetron Odt (Zofran Odt), 4 MG SL Q6H PRN for Nausea Oxycodone Immediate Rel Tab (Roxicodone Ir), 1 TAB PO Q4H PRN for Severe Pain Saline (Borden Nasal [place]), 2 SPRAYS LAI DAILY PRN for Nasal Dryness Allergies Coded Allergies: Hydroxyzine (Verified Allergy, Unknown, PT DOESN'T REMEMBER REACTION, 07/14) Levofloxacin (Verified Allergy, Unknown, RASH, 07/14/17) Quinolones (Verified Allergy, Unknown, RASH, 07/14/17) Wheat (Verified Allergy, Unknown, GI SENSITIVITY, 07/14/17) Prednisone (Verified Adverse Reaction, Intermediate, PSYCH COMPLICATIONS, 07/14/17) Tramadol (Verified Adverse Reaction, Intermediate, "OUT OF BODY", 07/14/17) Sulfa Antibiotics (Verified Adverse Reaction, Mild, GI UPSET, 07/14/17) Diphenhydramine (Verified Adverse Reaction, Unknown, "KEEPS ME AWAKE INSTEAD OF MAKING ME SLEEPY", 07/14/17) Physical Exam Vital Signs Date Time Temp Pulse Resp B/P (MAP) Pulse Ox O2 Delivery O2 Flow Rate FiO2 07/14/17 16:52 76 20 130/64 98 07/14/17 16:10 88 07/14/17 14:02 81 16 95/55 99 Room Air 07/14/17 12:52 89 20 97/65 97 Room Air 07/14/17 12:05 97 Room Air 07/14/17 12:05 97 Room Air 07/14/17 12:03 88 07/14/17 11:41 37.1 88 16 150/92 96 Room Air Physical Exam GENERAL: Patient is awake, alert, and in no acute distress. Patient is resting comfortably and showing no signs of anxiety EYES: The conjunctivae are clear. The pupils are round and reactive. EARS, NOSE, MOUTH AND THROAT: The nose is without any evidence of any deformity. Mucous membranes are moist tongue is midline NECK: The neck is nontender and supple. RESPIRATORY: Normal respiratory effort is noted there is no evidence of wheezing rhonchi or rales CARDIOVASCULAR: Regular rate and rhythm noted there no murmurs rubs or gallops normal S1 normal S2 GASTROINTESTINAL: The abdomen is soft. Bowel sounds are present in all quadrants. Abdomen is nontender MUSCULOSKELETAL/EXTREMITIES: There is no evidence of gross deformity full range of motion is noted in the hips and shoulders SKIN: There is no obvious evidence of any rash. There are no petechiae, pallor or cyanosis noted. NEUROLOGIC: Patient is awake alert and oriented x3. No facial droop appreciated. Accounts Administrator strength was symmetric. There was slight asymmetry in strength in lower extremities. Medical Decision & Procedures ER Provider Diagnostic Interpretation: Radiology results as stated below per my review and radiologist interpretation: HEAD WITHOUT CONTRAST (CT) CLINICAL HISTORY: 56 years-old Female presenting with EVALUATE ALTERED MENTAL STATUS/WEAKNESS. TECHNIQUE: Multidetector CT imaging of the head was performed without the use of intravenous contrast. IV contrast: None. A dose lowering technique was used consistent with the principles of ALARA (as low as reasonably achievable). COMPARISON: 05/12/2017. CT DOSE (mGy.cm): The estimated cumulative dose is 788.63 mGycm. FINDINGS: Food Products Sales Representative topogram: Unremarkable. Ventricles and sulci normal in size. Brain parenchyma normal in appearance with preserved greenberg-white differentiation. No mass effect or midline shift. No hemorrhage or acute territorial infarct. No extra-axial fluid collection. Paranasal sinuses and mastoid air cells clear. Calvarium intact. IMPRESSION: 1. No acute intracranial pathology. Electronically signed by: Jamel Mckenzie M.D. 07/14/2017 1:55 PM Dictated Date/Time: 07/14/2017 1:53 PM SINGLE VIEW CHEST CLINICAL HISTORY: Change in mental status. Weakness. FINDINGS: An AP, portable, upright chest radiograph is compared to study dated 05/12/2017 and correlated with chest CT dated 10/23/2016. The examination is degraded by portable technique, apical lordotic positioning, and large body habitus. The cardiac silhouette is top normal for projection. The mediastinal contour is unremarkable. The lungs and pleural spaces are clear. Apparent increase in density at the lung bases is related to overlying breast tissue. No pneumothorax is seen. The bony thorax is grossly intact. Fusion hardware is partially seen in the lower cervical region. IMPRESSION: No acute cardiopulmonary abnormality. Electronically signed by: Bulmaro Fraga M.D. 07/14/2017 1:16 PM Dictated Date/Time: 07/14/2017 1:16 PM Laboratory Results 07/14/17 00:00 Red Blood Count 4.52, Mean Corpuscular Volume 82.5, Mean Corpuscular Hemoglobin 27.9, Mean Corpuscular Hemoglobin Concent 33.8, Mean Platelet Volume 9.5, Neutrophils (%) (Auto) 58.1, Lymphocytes (%) (Auto) 33.1, Monocytes (%) (Auto) 5.7, Eosinophils (%) (Auto) 2.5, Basophils (%) (Auto) 0.4, Neutrophils # (Auto) 2.74, Lymphocytes # (Auto) 1.56, Monocytes # (Auto) 0.27, Eosinophils # (Auto) 0.12, Basophils # (Auto) 0.02 07/14/17 00:00 Test 07/14/17 00:00 White Blood Count 4.72 K/uL (4.8-10.8) Red Blood Count 4.52 M/uL (4.2-5.4) Hemoglobin 12.6 g/dL (12.0-16.0) Hematocrit 37.3 % (37-47) Mean Corpuscular Volume 82.5 fL (80-100) Mean Corpuscular Hemoglobin 27.9 pg (25-34) Mean Corpuscular Hemoglobin Concent 33.8 g/dl (32-36) Platelet Count 237 K/uL (130-400) Mean Platelet Volume 9.5 fL (7.4-10.4) Neutrophils (%) (Auto) 58.1 % Lymphocytes (%) (Auto) 33.1 % Monocytes (%) (Auto) 5.7 % Eosinophils (%) (Auto) 2.5 % Basophils (%) (Auto) 0.4 % Neutrophils # (Auto) 2.74 K/uL (1.4-6.5) Lymphocytes # (Auto) 1.56 K/uL (1.2-3.4) Monocytes # (Auto) 0.27 K/uL (0.11-0.59) Eosinophils # (Auto) 0.12 K/uL (0-0.5) Basophils # (Auto) 0.02 K/uL (0-0.2) RDW Standard Deviation 43.9 fL (36.4-46.3) RDW Coefficient of Variation 14.5 % (11.5-14.5) Immature Granulocyte % (Auto) 0.2 % Immature Granulocyte # (Auto) 0.01 K/uL (0.00-0.02) Prothrombin Time 10.6 SECONDS (9.0-12.0) Prothromb Time International Ratio 1.0 (0.9-1.1) Activated Partial Thromboplast Time 29.4 SECONDS (21.0-31.0) Partial Thromboplastin Ratio 1.1 Urine Color YELLOW Urine Appearance CLEAR (CLEAR) Urine pH 6.0 (4.5-7.5) Urine Specific [place] 1.018 (1.000-1.030) Urine Protein NEG (NEG) Urine Glucose (UA) NEG (NEG) Urine Ketones NEG (NEG) Urine Occult Blood NEG (NEG) Urine Nitrite NEG (NEG) Urine Bilirubin NEG (NEG) Urine Urobilinogen NEG (NEG) Urine Leukocyte Esterase NEG (NEG) Anion Gap 7.0 mmol/L (3-11) Est Creatinine Clear Calc Drug Dose 126.6 ml/min Estimated GFR () 117.0 Estimated GFR (Non- 101.0 BUN/Creatinine Ratio 12.9 (10-20) Calcium Level 9.0 mg/dl (8.5-10.1) Magnesium Level 2.1 mg/dl (1.8-2.4) Total Bilirubin 0.7 mg/dl (0.2-1) Direct Bilirubin 0.1 mg/dl (0-0.2) Aspartate Amino Transf (AST/SGOT) 22 U/L (15-37) Alanine Aminotransferase (ALT/SGPT) 25 U/L (12-78) Alkaline Phosphatase 66 U/L (45-117) Total Creatine Kinase 62 U/L (26-192) Creatine Kinase MB 0.5 ng/ml (0.5-3.6) Creatine Kinase MB Ratio 0.8 (0-3.0) Troponin I < 0.015 ng/ml (0-0.045) Total Protein 7.9 gm/dl (6.4-8.2) Albumin 3.6 gm/dl (3.4-5.0) Thyroid Stimulating Hormone (TSH) 3.470 uIu/ml (0.300-4.500) Laboratory results per my review. Medications Administered Medications (Trade) Dose Ordered Sig/Abbi Route Start Time Stop Time Status Last Admin Dose Admin Morphine Sulfate (MoRPHine SULFATE INJ) 4 mg Q15M PRN IV 07/14/17 12:00 07/14/17 17:09 DC 07/14/17 15:06 4 MG Promethazine HCl 25 mg/Sodium Chloride 51 ml @ 204 mls/hr NOW STAT IV 07/14/17 11:57 07/14/17 12:11 DC 07/14/17 12:50 204 MLS/HR Sodium Chloride 1,000 ml @ 999 mls/hr Q1H1M STAT IV 07/14/17 14:31 07/14/17 15:31 DC 07/14/17 15:00 999 MLS/HR ECG Indication: nausea Rate (beats per minute): 87 Rhythm: normal sinus Findings: no ectopy, other (no acute ST segment abnormalities) Change: no significant change (from 05/13/17) ED Course 1155: The patient was evaluated in room B9. A complete history and physical examination were performed. 1157: Ordered Promethazine HCl 25 mg/Sodium Chloride 51 ml @ 204 mls/hr IV. 1200: Ordered Morphine Sulfate Inj 4 mg IV PRN. 1414: I reevaluated and updated the patient. 1425: I discussed the patient with Dr. Joaquín Padron [facility]. 1430: I reevaluated the patient and she is resting. The patient verbally expressed understanding and agreement of the treatment plan. The patient will be discharged. 1431: Ordered NSS 1000 ml @ 999 mls/hr IV. Medical Decision Differential diagnosis: Etiologies such as metabolic, infection, hypo/hyperglycemia, electrolyte abnormalities, cardiac sources, intracerebral event, toxicologic, neurologic, as well as others were entertained. Nursing notes reviewed. The patient is a 56-year-old female who presented to the emergency department for an evaluation of headache. The patient also states that she was having chest pain. The symptoms began 3 days ago. The patient was seen by her primary care physician's office and was sent to the emergency department for further evaluation. The patient has no meningismus or fever. She does not have any focal neurologic deficit. She was treated with IV fluids IV pain medicine and IV antiemetics. On subsequent reevaluation she was somewhat improved. I discussed the patient's laboratory and radiographic studies with her. I also discussed the limitations of the emergency department workup for chest pain with her. I discussed her case with the physician who sent her to the emergency department at this time I do feel that she may require further outpatient workup but I do feel that she is stable for discharge at this time. She does have an underlying headache history. She states that this headache is somewhat different in intensity. At this time I do not feel that she would benefit from a lumbar puncture. She was encouraged to rest and avoid any strenuous activity. She was also encouraged to call her primary care physician to schedule a follow- up appointment for possible further testing such as a stress test. He is also encouraged to return to the emergency department immediately if symptoms change worsen or the need arises. Medication Reconcilliation Current Medication List: was personally reviewed by me Blood Pressure Screening Patient's blood pressure: Elevated blood pressure Blood pressure disposition: Elevated BP felt to be situational Consults Time Called: 1420 Consulting Physician: Dr. Joaquín [facility] Returned Call: [phone] I discussed the patient with Dr. Joaquín Padron [facility]. Impression Primary Impression: Headache Additional Impression: Chest pain Scribe Attestation The scribe's documentation has been prepared under my direction and personally reviewed by me in its entirety. I confirm that the note above accurately reflects all work, treatment, procedures, and medical decision making performed by me. Departure Information Dispostion Home / Self-Care Prescriptions Oxycodone Immediate Rel Tab (ROXICODONE IR) 5 Mg Tab 1 TAB PO Q4H Y for Severe Pain, #15 TAB Prov: Robert Sarabia, DO 07/14/17 Referrals Anali Mathias (PCP) Forms HOME CARE DOCUMENTATION FORM, IMPORTANT VISIT INFORMATION, Work Instructions Patient Instructions ED Chest Pain Atypical Unkn Cause, Headache Pain, My [facility] Additional Instructions Continue all medications as prescribed. Rest and avoid any strenuous activity. All up with your family doctor soon as possible. Return to the emergency Department immediately if symptoms change worsen or the need arises. Problem Qualifiers Primary Impression: Headache Headache type: unspecified Headache chronicity pattern: acute headache Intractability: not intractable Qualified Codes: R51 - Headache Additional Impression: Chest pain Chest pain type: unspecified Qualified Codes: R07.9 - Chest pain, unspecified
[2017-07-14 12:05] VITALS: O2SAT 97
[2017-07-14] MEDS: MoRPHine SULFATE 4 MG/ML 1 ML CARP\\VIAL IV PRN ×3 (12:50→15:06)
[2017-07-14 13:14] LABS: URINE APPEARANCE CLEAR (CLEAR); URINE BILIRUBIN NEG (NEG); URINE COLOR YELLOW; URINE NITRITE NEG (NEG); URINE SPECIFIC GRAVITY 1.018 (1.000-1.030); UROBILINOGEN NEG (NEG)
[2017-07-14 13:15] LABS: MANUAL MICROSCOPIC REQUIRED? NO; REVIEW REQ? NO
--- NOTE | 2017-07-14 13:18 | DIAGNOSTIC IMAGING REPORT ---
SINGLE VIEW CHEST CLINICAL HISTORY: Change in mental status. Weakness. FINDINGS: An AP, portable, upright chest radiograph is compared to study dated 05/12/2017 and correlated with chest CT dated 10/23/2016. The examination is degraded by portable technique, apical lordotic positioning, and large body habitus. The cardiac silhouette is top normal for projection. The mediastinal contour is unremarkable. The lungs and pleural spaces are clear. Apparent increase in density at the lung bases is related to overlying breast tissue. No pneumothorax is seen. The bony thorax is grossly intact. Fusion hardware is partially seen in the lower cervical region. IMPRESSION: No acute cardiopulmonary abnormality. Electronically signed by: Bulmaro Fraga M.D. 07/14/2017 1:16 PM Dictated Date/Time: 07/14/2017 1:16 PM
[2017-07-14 13:20] LABS: BASO % 0.4 %; BASO ABS # 0.02 K/uL (0-0.2); COMPLETE YES; EOS % 2.5 %; HEMATOCRIT 37.3 % (37-47); IG% 0.2 %; LYMPH % 33.1 %; LYMPH ABS # 1.56 K/uL (1.2-3.4); MEAN CELL VOLUME 82.5 fL (80-100); MEAN CORPUSCULAR HEMOGLOBIN 27.9 pg (25-34); MEAN CORPUSCULAR HGB CONC 33.8 g/dl (32-36); MEAN PLATELET VOLUME 9.5 fL (7.4-10.4); MONO % 5.7 %; NEUT % 58.1 %; PLATELET COUNT 237 K/uL (130-400); RED BLOOD COUNT 4.52 M/uL (4.2-5.4); WHITE BLOOD COUNT 4.72 K/uL (4.8-10.8)
[2017-07-14 13:21] LABS: PARTIAL THROMBOPLASTIN RATIO 1.1; PROTHROMBIN TIME (PATIENT) 10.6 SECONDS (9.0-12.0)
[2017-07-14 13:46] LABS: ALT/SGPT 25 U/L (12-78); BLOOD UREA NITROGEN 8 mg/dl (7-18); BUN/CREATININE RATIO 12.9 (10-20); CARBON DIOXIDE 28 mmol/L (21-32); CHLORIDE 104 mmol/L (98-107); CREATININE 0.63 mg/dl (0.60-1.20); GLUCOSE 80 mg/dl (70-99); MAGNESIUM 2.1 mg/dl (1.8-2.4); POTASSIUM 3.8 mmol/L (3.5-5.1); SODIUM 139 mmol/L (136-145)
--- NOTE | 2017-07-14 13:56 | DIAGNOSTIC IMAGING REPORT ---
HEAD WITHOUT CONTRAST (CT) CLINICAL HISTORY: 56 years-old Female presenting with EVALUATE ALTERED MENTAL STATUS/WEAKNESS. TECHNIQUE: Multidetector CT imaging of the head was performed without the use of intravenous contrast. IV contrast: None. A dose lowering technique was used consistent with the principles of ALARA (as low as reasonably achievable). COMPARISON: 05/12/2017. CT DOSE (mGy.cm): The estimated cumulative dose is 788.63 mGycm. FINDINGS: Clinical Writer topogram: Unremarkable. Ventricles and sulci normal in size. Brain parenchyma normal in appearance with preserved greenberg-white differentiation. No mass effect or midline shift. No hemorrhage or acute territorial infarct. No extra-axial fluid collection. Paranasal sinuses and mastoid air cells clear. Calvarium intact. IMPRESSION: 1. No acute intracranial pathology. Electronically signed by: Jamel Mckenzie M.D. 07/14/2017 1:55 PM Dictated Date/Time: 07/14/2017 1:53 PM
[2017-07-14 13:57] LABS: ALKALINE PHOSPHATASE 66 U/L (45-117); AST/SGOT 22 U/L (15-37); CKMB/CK RATIO 0.8 (0-3.0)
[2017-07-14] MEDS ORDERED: PRT/20 PO (14:14)
[2017-07-14] MEDS ORDERED: PANT40TA PO (14:14)
[2017-07-14] MEDS ORDERED: TURM500T PEG (14:14)
[2017-07-14] MEDS ORDERED: CHOL2000 PO (14:14)
[2017-07-14] MEDS ORDERED: SODIUM CHLORIDE 0.9% 1000ML 1,000 ML IV STA (14:31)
[2017-07-14] MEDS ORDERED: OXYC1TAB3 PO (15:08)
[2017-07-14 16:52] VITALS: BP 130/64; PULSE 76; O2SAT 98
== END 2017-07-14 16:53 | disposition home or self-care (01) ==
LOC: C.EDB 11:39
DX: R51 Headache (principal); R07.9 Chest pain, unspecified; F41.9 Anxiety disorder, unspecified; E03.9 Hypothyroidism, unspecified; M48.00 Spinal stenosis, site unspecified; Z86.73 Personal history of transient ischemic attack (TIA), and cerebral infarction without residual deficits; Z90.711 Acquired absence of uterus with remaining cervical stump; Z98.51 Tubal ligation status; Z83.3 Family history of diabetes mellitus; Z82.49 Family history of ischemic heart disease and other diseases of the circulatory system

== ENCOUNTER 2017-09-03 09:35 | Emergency (ER) | payer BC ==
[~2017-09-03] VITALS: Ht 154.9 cm; Wt 129.5 kg
[~2017-09-03 09:35] MED LIST changes: +CHOL2000 PO; +OXYC1TAB3 PO; +PANT40TA PO; +PRT/20 PO; +TURM500T PO
[2017-09-03 09:41] VITALS: TEMP 36.9; Ht 154.9 cm; Wt 129.5 kg
[2017-09-03] MEDS ORDERED: ACETAMINOPHEN 500 MG TAB PO STA (09:47)
[2017-09-03] MEDS ORDERED: ONDANSETRON INJ 2 MG/ML 2 ML VIAL IV STA (09:47)
[2017-09-03 09:50] VITALS: O2SAT 97
--- NOTE | 2017-09-03 09:58 | EMERGENCY ROOM VISIT NOTE ---
History Report prepared by Macrina: Ewa Garcia Under the Supervision of: Dr. Robert Sarabia D.O. First contact with patient: 09:38 Chief Complaint: CARDIAC ASSESSMENT Stated Complaint: CHEST PRESSURE, DIFFICULTY BREATHING, HEADACHE History of Present Illness The patient is a 56 year old female who presents to the Emergency Room with complaints of persistent SOB starting last night at around [id number]. She also has chest pressure in the middle of her chest and on her right side. The SOB and chest pressure worsened this morning. She has never experienced this before. The SOB is constant and does not change with lying down or walking. She reports nausea, headache, and nose bleeds. She denies any pain or swelling in the legs, abdominal pain, vomiting, fever, or significant weight changes. 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 She denies history of blood clots. She denies any recent surgeries. She has a history of sarcoid which has not been an issue recently. She is currently not on any steroids or inhalers. Source of History: patient Onset: Position: other (global) Quality: other (SOB) Timing: other (persistent) Associated Symptoms: + headache, + chest pain, + nausea, No fevers, No vomiting, No abdominal pain Note: Pt reports nosebleeds. Pt denies pain/swelling in the legs. Review of Systems See HPI for pertinent positives & negatives. A total of 10 systems reviewed and were otherwise negative. Past Medical & Surgical Medical Problems: (1) Anxiety (2) Chest pain (3) Hypothyroidism (4) Spinal stenosis (5) TIA (transient ischemic attack) (6) Uterine artery ablation Surgical Problems: (1) History of carpal tunnel surgery of left wrist (2) History of carpal tunnel surgery of right wrist (3) S/P appendectomy (4) S/P cervical spinal fusion (5) S/P lumbar spinal fusion (6) S/P partial hysterectomy (7) S/P tubal ligation Family History Cancer Diabetes mellitus Heart disease Hypertension Lung disease Social History Smoking Status: Never Smoker Alcohol Use: none Drug Use: none Marital Status: Housing Status: lives with family Occupation Status: employed Current/Historical Medications Scheduled Buspirone Hcl (Buspirone Hcl), 5 MG PO TID Cholecalciferol (Vitamin D3), 1 CAP PO DAILY Clonazepam (Clonazepam), 0.5 MG PO HS Coenzyme Q10 (Ubidecarenone) (Co Q-10), 75 MG PO DAILY Fish Oil (Lena-3), 1 CAP PO DAILY Levothyroxine Sodium (Levothyroxine Sodium), 50 MCG PO Q2D Levothyroxine Sodium (Levothyroxine Sodium), 75 MCG PO Q2D Multiple Vitamin (Multivitamin), 1 TAB PO DAILY Pantoprazole (Protonix), 40 MG PO DAILY Pantoprazole (Protonix), 20 MG PO DAILY Turmeric (Curcuma Longa) (Turmeric), 1 TAB PO DAILY Scheduled PRN Acetaminophen (Tylenol), 1,000 MG PO Q6H PRN for Pain or Fever Diphenoxylate W/ Atropine (Lomotil), 1 TAB PO BID PRN for Loose Stool(s) Loratadine (Claritin), 10 MG PO DAILY PRN for Allergy Symptoms Lorazepam (Lorazepam), 0.5 MG PO DAILY PRN for Anxiety Ondasetron Odt (Zofran Odt), 4 MG SL Q6H PRN for Nausea Saline ([place] Nasal [place]), 2 SPRAYS LAI DAILY PRN for Nasal Dryness Allergies Coded Allergies: Hydroxyzine (Verified Allergy, Unknown, PT DOESN'T REMEMBER REACTION, 10/08) Levofloxacin (Verified Allergy, Unknown, RASH, 09/03/17) Quinolones (Verified Allergy, Unknown, RASH, 09/03/17) Wheat (Verified Allergy, Unknown, GI SENSITIVITY, 09/03/17) Prednisone (Verified Adverse Reaction, Intermediate, PSYCH COMPLICATIONS, 09/03/17) Tramadol (Verified Adverse Reaction, Intermediate, "OUT OF BODY", 09/03/17 ) Sulfa Antibiotics (Verified Adverse Reaction, Mild, GI UPSET, 09/03/17) Diphenhydramine (Verified Adverse Reaction, Unknown, "KEEPS ME AWAKE INSTEAD OF MAKING ME SLEEPY", 09/03/17) Physical Exam Vital Signs Date Time Temp Pulse Resp B/P (MAP) Pulse Ox O2 Delivery O2 Flow Rate FiO2 09/03/17 13:34 80 20 114/79 98 09/03/17 11:59 85 16 112/65 98 Room Air 09/03/17 09:55 95 09/03/17 09:50 97 Room Air 09/03/17 09:41 36.9 91 20 120/79 99 Room Air 09/03/17 09:41 99 Room Air Physical Exam GENERAL: Patient is awake, alert, somewhat anxious appearing. EYES: The conjunctivae are clear. The pupils are round and reactive. EARS, NOSE, MOUTH AND THROAT: The nose is without any evidence of any deformity. Mucous membranes are moist tongue is midline NECK: The neck is nontender and supple. RESPIRATORY: There is tachypnea noted. No conversational dyspnea. There is no evidence of wheezing rhonchi or rales CARDIOVASCULAR: Regular rate and rhythm noted there no murmurs rubs or gallops normal S1 normal S2 GASTROINTESTINAL: The abdomen is soft. Bowel sounds are present in all quadrants. Abdomen is nontender MUSCULOSKELETAL/EXTREMITIES: There is no evidence of gross deformity full range of motion is noted in the hips and shoulders SKIN: There is no obvious evidence of any rash. There are no petechiae, pallor or cyanosis noted. NEUROLOGIC: Patient is awake alert and oriented x3 Medical Decision & Procedures ER Provider Diagnostic Interpretation: X-ray results as stated below per interpretation by me and the radiologist. Radiology results as stated below per my review and radiologist interpretation: CHEST ONE VIEW PORTABLE HISTORY: 56 years-old Female EVALUATE RESPIRATORY DISTRESS.DYSPNEA acute respiratory distress COMPARISON: Chest radiograph 07/14/2017 TECHNIQUE: Portable upright AP view of the chest FINDINGS: Cardiac silhouette is upper limits of normal, unchanged. Increased density of the lung bases again seen secondary to composite soft tissue density from breast parenchyma. There is no pneumothorax, pleural effusion, focal airspace consolidation or overt pulmonary edema. Bones of the chest are grossly intact. Degenerative changes are seen within the shoulders and spine. IMPRESSION: No acute cardiopulmonary process. The above report was generated using voice recognition software. It may contain grammatical, syntax or spelling errors. Electronically signed by: Werner Gomez M.D. 09/03/2017 10:14 AM Dictated Date/Time: 09/03/2017 10:12 AM (CHEST FOR PE) ANGIO WITH CT DOSE: 707.18 mGy.cm HISTORY: 56 years-old Female presents with acute shortness of breath and dry cough with chest pressure and headache TECHNIQUE: Multiple CTA images of the chest were obtained after the intravenous administration of 92 ml Optiray 320. Coronal and sagittal MIPS were obtained from the axial data set and were submitted for review. A dose lowering technique was utilized adhering to the principles of ALARA. COMPARISON: Chest radiographs of same day, CTA of the chest 10/23/2016 FINDINGS: CTA: Heart is normal in size without pericardial effusion. The thoracic aorta is normal in both course and caliber without dissection or aneurysm. No significant atherosclerotic plaquing identified. The pulmonary arterial tree is well-opacified to the level of the proximal segmental branches and demonstrates no focal filling defect to suggest pulmonary thromboembolic disease. CT CHEST: No dominant thyroid nodule identified. No pathologic adenopathy about the chest. No pneumothorax or pleural effusion. No lobar airspace consolidation to suggest pneumonia. No suspicious pulmonary nodules or masses seen within the lungs. Central airways are patent. The liver appears mildly enlarged, however only partially imaged. No acute abnormality of the imaged upper abdomen. Patient obesity noted. Partially imaged anterior endplate fusion hardware of the lower cervical spine. Mild to moderate multilevel endplate spurring of the spine. IMPRESSION: 1. No acute intrathoracic abnormality identified, specifically no acute aortic pathology or evidence of pulmonary thromboembolic disease. 2. No lobar airspace consolidation to suggest pneumonia. The above report was generated using voice recognition software. It may contain grammatical, syntax or spelling errors. Electronically signed by: Werner Gomez M.D. 09/03/2017 12:29 PM Dictated Date/Time: 09/03/2017 12:24 PM Laboratory Results 09/03/17 10:24 Red Blood Count 4.55, Mean Corpuscular Volume 84.2, Mean Corpuscular Hemoglobin 28.1, Mean Corpuscular Hemoglobin Concent 33.4, Mean Platelet Volume 9.5, Neutrophils (%) (Auto) 53.0, Lymphocytes (%) (Auto) 34.4, Monocytes (%) (Auto) 5.2, Eosinophils (%) (Auto) 6.3, Basophils (%) (Auto) 0.9, Neutrophils # (Auto) 2.95, Lymphocytes # (Auto) 1.91, Monocytes # (Auto) 0.29, Eosinophils # (Auto) 0.35, Basophils # (Auto) 0.05 09/03/17 10:24 Test 09/03/17 10:24 09/03/17 10:31 09/03/17 11:07 White Blood Count 5.56 K/uL (4.8-10.8) Red Blood Count 4.55 M/uL (4.2-5.4) Hemoglobin 12.8 g/dL (12.0-16.0) Hematocrit 38.3 % (37-47) Mean Corpuscular Volume 84.2 fL (80-100) Mean Corpuscular Hemoglobin 28.1 pg (25-34) Mean Corpuscular Hemoglobin Concent 33.4 g/dl (32-36) Platelet Count 217 K/uL (130-400) Mean Platelet Volume 9.5 fL (7.4-10.4) Neutrophils (%) (Auto) 53.0 % Lymphocytes (%) (Auto) 34.4 % Monocytes (%) (Auto) 5.2 % Eosinophils (%) (Auto) 6.3 % Basophils (%) (Auto) 0.9 % Neutrophils # (Auto) 2.95 K/uL (1.4-6.5) Lymphocytes # (Auto) 1.91 K/uL (1.2-3.4) Monocytes # (Auto) 0.29 K/uL (0.11-0.59) Eosinophils # (Auto) 0.35 K/uL (0-0.5) Basophils # (Auto) 0.05 K/uL (0-0.2) RDW Standard Deviation 45.0 fL (36.4-46.3) RDW Coefficient of Variation 14.8 % (11.5-14.5) Immature Granulocyte % (Auto) 0.2 % Immature Granulocyte # (Auto) 0.01 K/uL (0.00-0.02) Prothrombin Time 10.1 SECONDS (9.0-12.0) Prothromb Time International Ratio 0.9 (0.9-1.1) Activated Partial Thromboplast Time 28.9 SECONDS (21.0-31.0) Partial Thromboplastin Ratio 1.1 Anion Gap 6.0 mmol/L (3-11) Est Creatinine Clear Calc Drug Dose 107.6 ml/min Estimated GFR () 104.0 Estimated GFR (Non- 89.7 BUN/Creatinine Ratio 13.1 (10-20) Calcium Level 9.2 mg/dl (8.5-10.1) Total Bilirubin 0.5 mg/dl (0.2-1) Aspartate Amino Transf (AST/SGOT) 22 U/L (15-37) Alanine Aminotransferase (ALT/SGPT) 24 U/L (12-78) Alkaline Phosphatase 73 U/L (45-117) Troponin I < 0.015 ng/ml (0-0.045) Pro-B-Type Natriuretic Peptide 63 pg/ml (0-900) Total Protein 8.3 gm/dl (6.4-8.2) Albumin 3.7 gm/dl (3.4-5.0) Globulin 4.6 gm/dl (2.5-4.0) Albumin/Globulin Ratio 0.8 (0.9-2) Chemistry Specimen Hemolysis Bedside D-Dimer > 450 ng/mlFEU (0-450) Urine Color DK YELLOW Urine Appearance CLEAR (CLEAR) Urine pH 8.0 (4.5-7.5) Urine Specific [place] 1.014 (1.000-1.030) Urine Protein NEG (NEG) Urine Glucose (UA) NEG (NEG) Urine Ketones NEG (NEG) Urine Occult Blood NEG (NEG) Urine Nitrite NEG (NEG) Urine Bilirubin NEG (NEG) Urine Urobilinogen NEG (NEG) Urine Leukocyte Esterase NEG (NEG) Laboratory results per my review. Medications Administered Medications (Trade) Dose Ordered Sig/Abbi Route Start Time Stop Time Status Last Admin Dose Admin Acetaminophen (Tylenol Tab) 1,000 mg NOW STAT PO 09/03/17 09:47 09/03/17 09:50 DC 09/03/17 09:58 1,000 MG Ondansetron HCl (Zofran Inj) 4 mg NOW STAT IV 09/03/17 09:47 09/03/17 09:50 DC 09/03/17 09:59 4 MG ECG Indication: SOB/dyspnea Rate (beats per minute): 94 Rhythm: normal sinus Findings: no ectopy, other (no acute ST segment) Comparison ECG Date: 14-Jul-2017 Change: no significant change ED Course 0941: The patient was evaluated in room A10. A complete history and physical examination were performed. 0947: Zofran Inj 4 mg IV, Acetaminophen 1000 mg PO. 1318: Upon reevaluation, the patient is resting comfortably. I discussed the results and treatment plan with her. She verbalized agreement of the treatment plan. She was discharged home. Medical Decision Prior records/ancillary studies reviewed. Triage Nursing notes reviewed. Additional history obtained from the family. The patient's history was concerning for respiratory difficulties. Differential diagnosis: Etiologies such as infections, reactive airway disease, pneumonia, pneumothorax , COPD, CHF, cardiac ischemia, pulmonary embolism, musculoskeletal, gastrointestinal, as well as others were entertained. The patient is a 56-year-old female who presented to the emergency department for an evaluation of difficulty breathing. The patient has had ongoing symptoms for greater than 6 hours. She did not have significant hypoxia or tachycardia. I discussed the patient's laboratory and radiographic studies with her. Her EKG did not show any changes compared to previous and her cardiac biomarker was negative. CT the chest did not show any acute pulmonary embolism or pulmonary infiltrate. The patient was encouraged to rest and avoid any strenuous activity. She was also encouraged to call her family doctor to schedule a follow -up appointment as soon as possible. She was encouraged to return to the emergency apartment immediately if symptoms change worsen or the need arises. Medication Reconcilliation Current Medication List: was personally reviewed by me Blood Pressure Screening Patient's blood pressure: Normal blood pressure Blood pressure disposition: Did not require urgent referral Impression Primary Impression: SOB (shortness of breath) Additional Impression: Cough Scribe Attestation The scribe's documentation has been prepared under my direction and personally reviewed by me in its entirety. I confirm that the note above accurately reflects all work, treatment, procedures, and medical decision making performed by me. Departure Information Dispostion Home / Self-Care Referrals Anali Mathias (PCP) Forms IMPORTANT VISIT INFORMATION Patient Instructions ED Dyspnea Shortness of Breath, My [facility] Additional Instructions Call your family doctor in the morning to schedule a follow-up appointment. Continue all medications as prescribed. Rest and avoid any strenuous activity. Problem Qualifiers
--- NOTE | 2017-09-03 10:15 | DIAGNOSTIC IMAGING REPORT ---
CHEST ONE VIEW PORTABLE HISTORY: 56 years-old Female EVALUATE RESPIRATORY DISTRESS.DYSPNEA acute respiratory distress COMPARISON: Chest radiograph 07/14/2017 TECHNIQUE: Portable upright AP view of the chest FINDINGS: Cardiac silhouette is upper limits of normal, unchanged. Increased density of the lung bases again seen secondary to composite soft tissue density from breast parenchyma. There is no pneumothorax, pleural effusion, focal airspace consolidation or overt pulmonary edema. Bones of the chest are grossly intact. Degenerative changes are seen within the shoulders and spine. IMPRESSION: No acute cardiopulmonary process. The above report was generated using voice recognition software. It may contain grammatical, syntax or spelling errors. Electronically signed by: Werner Gomez M.D. 09/03/2017 10:14 AM Dictated Date/Time: 09/03/2017 10:12 AM
[2017-09-03 10:37] LABS: BASO % 0.9 %; BASO ABS # 0.05 K/uL (0-0.2); COMPLETE YES; EOS % 6.3 %; HEMATOCRIT 38.3 % (37-47); IG% 0.2 %; LYMPH % 34.4 %; LYMPH ABS # 1.91 K/uL (1.2-3.4); MEAN CELL VOLUME 84.2 fL (80-100); MEAN CORPUSCULAR HEMOGLOBIN 28.1 pg (25-34); MEAN CORPUSCULAR HGB CONC 33.4 g/dl (32-36); MEAN PLATELET VOLUME 9.5 fL (7.4-10.4); MONO % 5.2 %; PLATELET COUNT 217 K/uL (130-400); RED BLOOD COUNT 4.55 M/uL (4.2-5.4); WHITE BLOOD COUNT 5.56 K/uL (4.8-10.8)
[2017-09-03 11:03] LABS: INR 0.9 (0.9-1.1); PARTIAL THROMBOPLASTIN RATIO 1.1; PROTHROMBIN TIME (PATIENT) 10.1 SECONDS (9.0-12.0)
[2017-09-03 11:04] LABS: ALT/SGPT 24 U/L (12-78); BLOOD UREA NITROGEN 10 mg/dl (7-18); BUN/CREATININE RATIO 13.1 (10-20); CALCIUM 9.2 mg/dl (8.5-10.1); CARBON DIOXIDE 28 mmol/L (21-32); CHLORIDE 105 mmol/L (98-107); CREATININE 0.75 mg/dl (0.60-1.20); GLUCOSE 107 mg/dl (70-99); SODIUM 139 mmol/L (136-145)
[2017-09-03 11:15] LABS: ALB/GLOB RATIO 0.8 (0.9-2); ALKALINE PHOSPHATASE 73 U/L (45-117); AST/SGOT 22 U/L (15-37)
[2017-09-03 11:23] LABS: URINE APPEARANCE CLEAR (CLEAR); URINE BILIRUBIN NEG (NEG); URINE COLOR DK YELLOW; URINE NITRITE NEG (NEG); URINE SPECIFIC GRAVITY 1.014 (1.000-1.030); UROBILINOGEN NEG (NEG)
[2017-09-03 11:27] LABS: MANUAL MICROSCOPIC REQUIRED? NO; REVIEW REQ? NO
[2017-09-03] MEDS ORDERED: OPTIRAY 320 IV PRN (12:15)
--- NOTE | 2017-09-03 12:30 | DIAGNOSTIC IMAGING REPORT ---
(CHEST FOR PE) ANGIO WITH CT DOSE: 707.18 mGy.cm HISTORY: 56 years-old Female presents with acute shortness of breath and dry cough with chest pressure and headache TECHNIQUE: Multiple CTA images of the chest were obtained after the intravenous administration of 92 ml Optiray 320. Coronal and sagittal MIPS were obtained from the axial data set and were submitted for review. A dose lowering technique was utilized adhering to the principles of ALARA. COMPARISON: Chest radiographs of same day, CTA of the chest 10/23/2016 FINDINGS: CTA: Heart is normal in size without pericardial effusion. The thoracic aorta is normal in both course and caliber without dissection or aneurysm. No significant atherosclerotic plaquing identified. The pulmonary arterial tree is well-opacified to the level of the proximal segmental branches and demonstrates no focal filling defect to suggest pulmonary thromboembolic disease. CT CHEST: No dominant thyroid nodule identified. No pathologic adenopathy about the chest. No pneumothorax or pleural effusion. No lobar airspace consolidation to suggest pneumonia. No suspicious pulmonary nodules or masses seen within the lungs. Central airways are patent. The liver appears mildly enlarged, however only partially imaged. No acute abnormality of the imaged upper abdomen. Patient obesity noted. Partially imaged anterior endplate fusion hardware of the lower cervical spine. Mild to moderate multilevel endplate spurring of the spine. IMPRESSION: 1. No acute intrathoracic abnormality identified, specifically no acute aortic pathology or evidence of pulmonary thromboembolic disease. 2. No lobar airspace consolidation to suggest pneumonia. The above report was generated using voice recognition software. It may contain grammatical, syntax or spelling errors. Electronically signed by: Werner Gomez M.D. 09/03/2017 12:29 PM Dictated Date/Time: 09/03/2017 12:24 PM
[2017-09-03 13:34] VITALS: BP 114/79; PULSE 80; O2SAT 98
== END 2017-09-03 13:39 | disposition home or self-care (01) ==
LOC: C.EDB 09:36 → C.EDA 13:39
DX: R06.02 Shortness of breath (principal); R05 Cough; E03.9 Hypothyroidism, unspecified; F41.9 Anxiety disorder, unspecified; Z83.3 Family history of diabetes mellitus; Z82.49 Family history of ischemic heart disease and other diseases of the circulatory system; Z83.6 Family history of other diseases of the respiratory system

== ENCOUNTER 2017-10-24 07:47 | Emergency (ER) | payer BC ==
[~2017-10-24] VITALS: Ht 154.9 cm; Wt 110.0 kg
[~2017-10-24 07:47] MED LIST changes: -CHOL2000 PO; -CLR10 PO; -COEN75CA PO; -DPH/ PO; -KLN5X PO; -OMEG10007 PO; -OXYC1TAB3 PO; -SALI0.6510 NAE; -TYLOTC500 PO
[2017-10-24 07:51] VITALS: TEMP 36.9; Ht 154.9 cm; Wt 110.0 kg
[2017-10-24] MEDS ORDERED: MoRPHine SULFATE 10 MG/ML CARP/VIAL IV STA (08:15)
[2017-10-24] MEDS ORDERED: DEXAMETHASONE INJ 10 MG in SYRINGE 0 ML IV STA (08:15)
[2017-10-24] MEDS ORDERED: KETOROLAC TROMETHAMINE 30 MG/ML VIAL IV STA (08:15)
[2017-10-24] MEDS ORDERED: ONDANSETRON INJ 2 MG/ML 2 ML VIAL IV STA (08:15)
[2017-10-24 09:25] VITALS: PULSE 89; O2SAT 95
--- NOTE | 2017-10-24 09:29 | EMERGENCY ROOM VISIT NOTE ---
History First contact with patient: 08:00 Chief Complaint: BACK PAIN Stated Complaint: LEFT SIDE AND BACK PAIN History of Present Illness The patient is a 57 year old female who presents to the Emergency Room with complaints of low back pain with left radiculopathy which started last Monday. The patient had lumbar back surgery by Dr. Quezada she thinks in 2012 for a fusion of L4-L5 and L5-S1. The patient has had intermittent pain since surgery but never this bad. The only new incident that she can think might of cost or increased pain was that she slipped but did not fall to the ground prior to the onset of the back pain. She went to her PCP when the pain started and was given a shot of Toradol in office. She was discharged on Flexeril and oxycodone. She states the Flexeril does not work and the oxycodone takes the pain away for 1-2 hours. The patient has not taken anything for pain today. The patient denies any loss of bowel or bladder control. The patient denies any saddle anesthesia. The patient has not tried to contact Dr. Quezada. She states that her most recent follow-up appointment with Dr. Quezada was 6 months ago when she had an MRI performed at [facility] [place] [facility]. At that time he stated there was some problems but did not recommend any further treatment at that time. Review of Systems 10 system review was performed and was negative unless stated otherwise history of present illness. Past Medical/Surgical History Medical Problems: (1) Anxiety (2) Chest pain (3) Hypothyroidism (4) Spinal stenosis (5) TIA (transient ischemic attack) (6) Uterine artery ablation Surgical Problems: (1) History of carpal tunnel surgery of left wrist (2) History of carpal tunnel surgery of right wrist (3) S/P appendectomy (4) S/P cervical spinal fusion (5) S/P lumbar spinal fusion (6) S/P partial hysterectomy (7) S/P tubal ligation Family History Cancer Diabetes mellitus Heart disease Hypertension Lung disease Social History Smoking Status: Never Smoker Alcohol Use: none Drug Use: none Marital Status: Housing Status: lives with family Occupation Status: employed Current/Historical Medications Scheduled Buspirone Hcl (Buspirone Hcl), 5 MG PO TID Cholecalciferol (Vitamin D3), 2,000 UNITS PO DAILY Clonazepam (Clonazepam), 0.5 MG PO HS Coenzyme Q10 (Ubidecarenone) (Co Q-10), 75 MG PO DAILY Fish Oil ([place]-3), 1 CAP PO DAILY Levothyroxine Sodium (Levothyroxine Sodium), 50 MCG PO Q2D Levothyroxine Sodium (Levothyroxine Sodium), 75 MCG PO Q2D Multiple Vitamin (Multivitamin), 1 TAB PO DAILY Scheduled PRN Acetaminophen (Tylenol), 1,000 MG PO Q6H PRN for Pain or Fever Diphenoxylate W/ Atropine (Lomotil), 1 TAB PO BID PRN for Loose Stool(s) Loratadine (Claritin), 10 MG PO DAILY PRN for Allergy Symptoms Saline ([place] Nasal Clute), 2 SPRAYS LAI DAILY PRN for Nasal Dryness Physical Exam Vital Signs Date Time Temp Pulse Resp B/P (MAP) Pulse Ox O2 Delivery O2 Flow Rate FiO2 10/24/17 09:25 89 18 99/67 95 10/24/17 07:51 36.9 103 20 128/73 99 Room Air Physical Exam PHYSICAL EXAM: Vital Signs normal: Reviewed Nurse's notes and agree. MENTAL STATUS: Alert and oriented in no acute distress. LUMBAR SPINE: The patient has increased lordosis. The patient has a vertical scar consistent with prior surgery. She is tender to palpation over the lower spinous processes. She is also tender to palpation the lower left paravertebral region. Right side nontender. The patient has limited range of motion in all directions secondary to pain. Muscle strength is 5 out of 5 bilateral lower extremities and symmetrical. NEURO: Patient is able to heel and toe walk without difficulty. I lateral patellar and Achilles reflexes are 2+. Sensation is intact to pinprick bilateral lower extremities. Negative straight leg raise bilaterally. Medical Decision & Procedures Medications Administered Medications (Trade) Dose Ordered Sig/Abbi Route Start Time Stop Time Status Last Admin Dose Admin Ketorolac Tromethamine (Toradol Inj) 30 mg NOW STAT IV 10/24/17 08:15 10/24/17 08:19 DC 10/24/17 08:36 30 MG Dexamethasone Sodium Phosphate 10 mg/Syringe 2.5 ml @ 1 mls/min NOW STAT IV 10/24/17 08:15 10/24/17 08:19 DC 10/24/17 08:41 1 MLS/MIN Morphine Sulfate (MoRPHine SULFATE INJ) 6 mg NOW STAT IV 10/24/17 08:15 10/24/17 08:19 DC 10/24/17 08:37 6 MG Ondansetron HCl (Zofran Inj) 4 mg NOW STAT IV 10/24/17 08:15 10/24/17 08:19 DC 10/24/17 08:34 4 MG ED Course The patient was evaluated. IV access was obtained. The patient was given Decadron 10 mg IV, Toradol 30 mg IV, morphine 6 mg IV and Zofran 4 mg IV push. I had the family caseworkerfishing manager Dr. Quezada's office to set up a follow-up appointment for the patient. Dr. Quezada's office informed me that Dr. Zaraogza in the OR today and when he has free time they will check with him for a time to squeeze the patient in within the next day or 2. They will call the patient at home with her appointment. The patient was informed and was happy with treatment plan. The patient was reevaluated and was feeling better. The patient was discharged home in stable condition with her driving. Medical Decision Differential diagnosis include left sciatica, spinal stenosis, lumbar left radiculopathy. Since the patient is already a patient of Dr. Zaragoza and had her last MRI performed at [facility], I felt the patient was best to follow with Dr. Quezada and have the MRI if needed performed at [facility] [place] for direct comparison. [place] Drug Monitoring Program Search Results: patient reviewed within database Medication Reconcilliation Current Medication List: was personally reviewed by me Blood Pressure Screening Patient's blood pressure: Normal blood pressure Impression Primary Impression: Lumbar back pain with radiculopathy affecting left lower extremity Departure Information Dispostion Home / Self-Care Condition GOOD Referrals Anali Mathias (PCP) Forms HOME CARE DOCUMENTATION FORM, IMPORTANT VISIT INFORMATION Patient Instructions [facility] [employer] Additional Instructions DISCHARGE INSTRUCTIONS AND TREATMENT: Ibuprofen 600 mg every 6 hours with food for pain. Take oxycodone as needed for more severe pain. Do not drive while taking the oxycodone. Avoid staying in any one position for an extended period of time. Dr. Quezada's office will call you later today for follow-up appointment time. Further treatment as per Dr. Quezada.
[2017-10-24 09:52] VITALS: BP 115/77
[2017-10-24 10:31] LABS: INFLUENZA B ANTIGEN Neg for Influ B (NEG)
== END 2017-10-24 09:53 | disposition home or self-care (01) ==
LOC: C.EDB 07:48 → C.EDA 09:53
DX: M54.16 Radiculopathy, lumbar region (principal); E03.9 Hypothyroidism, unspecified; M48.00 Spinal stenosis, site unspecified; F41.9 Anxiety disorder, unspecified; Z86.73 Personal history of transient ischemic attack (TIA), and cerebral infarction without residual deficits; Z98.1 Arthrodesis status; Z90.710 Acquired absence of both cervix and uterus; Z98.51 Tubal ligation status; Z98.890 Other specified postprocedural states; Z79.899 Other long term (current) drug therapy; Z80.9 Family history of malignant neoplasm, unspecified; Z83.3 Family history of diabetes mellitus; Z82.49 Family history of ischemic heart disease and other diseases of the circulatory system

== ENCOUNTER 2017-12-01 07:56 | Emergency (ER) | payer BC ==
[~2017-12-01] VITALS: Ht 154.9 cm; Wt 124.2 kg
[~2017-12-01 07:56] MED LIST changes: -ATV5X PO; -ONDA4TAB10 SL; -PANT40TA PO; -PRT/20 PO; -TURM500T PO
[2017-12-01 08:01] VITALS: Ht 154.9 cm; Wt 124.2 kg
[2017-12-01] MEDS ORDERED: COEN75CA PO (08:24)
[2017-12-01] MEDS ORDERED: SODIUM CHLORIDE 0.9% 1000ML 1,000 ML IV STA (08:36)
[2017-12-01 08:39] VITALS: O2SAT 98
[2017-12-01 08:53] LABS: BASO % 0.6 %; BASO ABS # 0.03 K/uL (0-0.2); EOS % 2.9 %; EOS ABS # 0.16 K/uL (0-0.5); HEMATOCRIT 38.6 % (37-47); IG# 0.01 K/uL (0.00-0.02); LYMPH % 26.3 %; LYMPH ABS # 1.43 K/uL (1.2-3.4); MEAN CELL VOLUME 84.3 fL (80-100); MEAN CORPUSCULAR HEMOGLOBIN 28.4 pg (25-34); MEAN CORPUSCULAR HGB CONC 33.7 g/dl (32-36); MEAN PLATELET VOLUME 9.6 fL (7.4-10.4); MONO ABS # 0.27 K/uL (0.11-0.59); NEUT ABS # 3.53 K/uL (1.4-6.5); PLATELET COUNT 220 K/uL (130-400); RED CELL DISTRIBUTION WIDTH CV 14.4 % (11.5-14.5); RED CELL DISTRIBUTION WIDTH SD 44.1 fL (36.4-46.3); WHITE BLOOD COUNT 5.43 K/uL (4.8-10.8)
[2017-12-01 09:00] LABS: ALBUMIN 3.6 gm/dl (3.4-5.0); BLOOD UREA NITROGEN 12 mg/dl (7-18); CALCIUM 9.5 mg/dl (8.5-10.1); CARBON DIOXIDE 26 mmol/L (21-32); CREATININE 0.73 mg/dl (0.60-1.20); GLUCOSE 118 mg/dl (70-99); POTASSIUM 3.7 mmol/L (3.5-5.1); SODIUM 137 mmol/L (136-145)
[2017-12-01] MEDS ORDERED: VITBC PO (09:01)
[2017-12-01] MEDS ORDERED: SYN75 PO (09:01)
[2017-12-01] MEDS ORDERED: IBUP-1050 PO (09:01)
--- NOTE | 2017-12-01 09:01 | DIAGNOSTIC IMAGING REPORT ---
CHEST 2 VIEWS ROUTINE CLINICAL HISTORY: Atypical chest pain, palpitations, headache. COMPARISON STUDY: 09/03/2017 FINDINGS: The cardiac and mediastinal contours remain stable. There is no focal pulmonary consolidation. There is no failure. There are no pleural effusions. Increased prominence of the basal markings is felt to be secondary to overlying breast tissue attenuation. There are postsurgical changes of the cervical spine.[ IMPRESSION: No active disease in the chest. Electronically signed by: Terrance Sanders M.D. 12/01/2017 9:00 AM Dictated Date/Time: 12/01/2017 8:59 AM
[2017-12-01 09:03] LABS: PTT PATIENT 28.1 SECONDS (21.0-31.0)
[2017-12-01] MEDS ORDERED: DPH/ PO (09:07)
[2017-12-01] MEDS ORDERED: CLR10 PO (09:07)
[2017-12-01] MEDS ORDERED: SALI0.6510 NAE (09:07)
[2017-12-01 09:11] LABS: ALKALINE PHOSPHATASE 57 U/L (45-117); ALT/SGPT 26 U/L (12-78); AST/SGOT 15 U/L (15-37); CKMB < 0.5 ng/ml (0.5-3.6)
[2017-12-01] MEDS ORDERED: KETOROLAC TROMETHAMINE 30 MG/ML VIAL IV STA (10:25)
[2017-12-01 10:59] VITALS: BP 115/78; PULSE 89; TEMP 36.8; O2SAT 99
--- NOTE | 2017-12-01 11:17 | EMERGENCY ROOM VISIT NOTE ---
History First contact with patient: 08:22 Chief Complaint: PALPITATIONS Stated Complaint: CHEST PRESSURE, PALPITATIONS, HEADACHE History of Present Illness The patient is a 57 year old female who presents to the Emergency Room with complaints of palpitations and chest pain. She states she noticed the palpitations last night, worse with taking deep breaths. She states this morning, the palpitations were worse and also affiliated with chest discomfort. She states she was getting up and ready for her day, the palpitations became stronger and more frequently. Associated with her symptoms, she complains of headache, nausea, shortness of breath which she describes as difficulty taking a deep breath. She denies any cardiac history, but states she has had similar symptoms in the past, and was evaluated by a soft top installer. She states at that time, her symptoms were not as severe as they seem to be now. She does report family history of a heart murmur and triple bypass in her 82-year-old father. Eyes any recent illness, leg swelling, abdominal pain, diarrhea, constipation. She denies any upper respiratory infection symptoms. She denies any coughing or coughing up sputum. She states nothing aggravates or alleviates the pain. She noticed when she awoke in the middle the night to go to the bathroom that she still had the palpitations. She has been tolerating food and fluids okay. Review of Systems A complete 10 point review of systems was reviewed with the patient with pertinent positives and negatives as per history of present illness. All else were negative. Past Medical/Surgical History Medical Problems: (1) Anxiety (2) Chest pain (3) Hypothyroidism (4) Spinal stenosis (5) TIA (transient ischemic attack) (6) Uterine artery ablation Surgical Problems: (1) History of carpal tunnel surgery of left wrist (2) History of carpal tunnel surgery of right wrist (3) S/P appendectomy (4) S/P cervical spinal fusion (5) S/P lumbar spinal fusion (6) S/P partial hysterectomy (7) S/P tubal ligation Family History Cancer Diabetes mellitus Heart disease Hypertension Lung disease Social History Smoking Status: Never Smoker Alcohol Use: none Drug Use: none Marital Status: Housing Status: lives with family Occupation Status: employed Current/Historical Medications Scheduled Cholecalciferol (Vitamin D3), 2,000 UNITS PO DAILY Clonazepam (Clonazepam), 0.5 MG PO HS Coenzyme Q10 (Ubidecarenone) (Co Q-10), 75 MG PO DAILY Fish Oil ([place]-3), 1 CAP PO DAILY Levothyroxine Sodium (Levothyroxine Sodium), 50 MCG PO Q2D Levothyroxine Sodium (Synthroid), 75 MCG PO DAILY Vitamin B Complex (Vitamin B Complex), 1 TAB PO DAILY Scheduled PRN Acetaminophen (Tylenol), 1,000 MG PO Q6H PRN for Pain or Fever Diphenoxylate W/ Atropine (Lomotil), 1 TAB PO BID PRN for Loose Stool(s) Ibuprofen (Advil), 400-600 MG PO Q6H PRN for Pain Loratadine (Claritin), 10 MG PO DAILY PRN for Allergy Symptoms Saline ([place] Nasal Sig[place]), 2 SPRAYS LAI DAILY PRN for Nasal Dryness Physical Exam Vital Signs Date Time Temp Pulse Resp B/P (MAP) Pulse Ox O2 Delivery O2 Flow Rate FiO2 12/01/17 10:59 36.8 89 18 115/78 100 Room Air 12/01/17 10:59 89 24 115/78 99 12/01/17 08:39 98 Room Air 12/01/17 08:29 Room Air 12/01/17 08:18 106 12/01/17 08:01 36.7 94 18 133/53 98 Room Air Physical Exam VITALS: Vitals are noted on the nurse's note and reviewed by myself. Vital signs stable. GENERAL: This is an obese white female, in no acute distress, nondiaphoretic, well-developed well-nourished. SKIN: The skin was without rashes, erythema, edema, or bruising. There is no tenting of the skin. Capillary reflex less than 2 seconds. HEAD: Normocephalic atraumatic. EARS: External auditory canals clear, tympanic membranes pearly greenberg without erythema or effusion bilaterally. EYES: Pupils equal round and reactive to light and accommodation. Conjunctivae without injection, sclerae without icterus. Extraocular movements intact. NOSE: Patent, turbinates without inflammation or discharge. No sinus tenderness. MOUTH: Mucous membranes moist. Tonsils are not enlarged. Pharynx without erythema or exudate. Uvula midline. Airway patent. Tongue does not deviate. NECK: Supple without nuchal rigidity. No lymphadenopathy. No thyromegaly. Cervical spine is nontender. No JVD. HEART: Regular rate and rhythm without murmurs gallops or rubs. LUNGS: Clear to auscultation bilaterally without wheezes, rales or rhonchi. No dullness to percussion. No retractions or accessory muscle use. ABDOMEN: Positive bowel sounds x 4. Normal tympanic percussion. Soft, nontender, without masses or organomegaly. Cheek sign negative. No guarding or rebound tenderness. MUSCULOSKELETAL: No muscle atrophy, erythema, or edema noted. Full range of motion without joint tenderness in all extremities. No tenderness to palpation. Normal gait. Strength 5/5 throughout. NEURO: Patient was alert and oriented to person place and time. Normal sensation to light and sharp touch. Deep tendon reflexes 2+ throughout. No focal neurological deficits. Medical Decision & Procedures ER Provider Diagnostic Interpretation: CHEST 2 VIEWS ROUTINE CLINICAL HISTORY: Atypical chest pain, palpitations, headache. COMPARISON STUDY: 09/03/2017 FINDINGS: The cardiac and mediastinal contours remain stable. There is no focal pulmonary consolidation. There is no failure. There are no pleural effusions. Increased prominence of the basal markings is felt to be secondary to overlying breast tissue attenuation. There are postsurgical changes of the cervical spine.[ IMPRESSION: No active disease in the chest. Laboratory Results 12/01/17 08:20 Red Blood Count 4.58, Mean Corpuscular Volume 84.3, Mean Corpuscular Hemoglobin 28.4, Mean Corpuscular Hemoglobin Concent 33.7, Mean Platelet Volume 9.6, Neutrophils (%) (Auto) 65.0, Lymphocytes (%) (Auto) 26.3, Monocytes (%) (Auto) 5.0, Eosinophils (%) (Auto) 2.9, Basophils (%) (Auto) 0.6, Neutrophils # (Auto) 3.53, Lymphocytes # (Auto) 1.43, Monocytes # (Auto) 0.27, Eosinophils # (Auto) 0.16, Basophils # (Auto) 0.03 12/01/17 08:20 Test 12/01/17 08:20 12/01/17 08:34 12/01/17 10:31 12/01/17 10:49 White Blood Count 5.43 K/uL (4.8-10.8) Red Blood Count 4.58 M/uL (4.2-5.4) Hemoglobin 13.0 g/dL (12.0-16.0) Hematocrit 38.6 % (37-47) Mean Corpuscular Volume 84.3 fL (80-100) Mean Corpuscular Hemoglobin 28.4 pg (25-34) Mean Corpuscular Hemoglobin Concent 33.7 g/dl (32-36) Platelet Count 220 K/uL (130-400) Mean Platelet Volume 9.6 fL (7.4-10.4) Neutrophils (%) (Auto) 65.0 % Lymphocytes (%) (Auto) 26.3 % Monocytes (%) (Auto) 5.0 % Eosinophils (%) (Auto) 2.9 % Basophils (%) (Auto) 0.6 % Neutrophils # (Auto) 3.53 K/uL (1.4-6.5) Lymphocytes # (Auto) 1.43 K/uL (1.2-3.4) Monocytes # (Auto) 0.27 K/uL (0.11-0.59) Eosinophils # (Auto) 0.16 K/uL (0-0.5) Basophils # (Auto) 0.03 K/uL (0-0.2) RDW Standard Deviation 44.1 fL (36.4-46.3) RDW Coefficient of Variation 14.4 % (11.5-14.5) Immature Granulocyte % (Auto) 0.2 % Immature Granulocyte # (Auto) 0.01 K/uL (0.00-0.02) Prothrombin Time 10.3 SECONDS (9.0-12.0) Prothromb Time International Ratio 1.0 (0.9-1.1) Activated Partial Thromboplast Time 28.1 SECONDS (21.0-31.0) Partial Thromboplastin Ratio 1.1 Anion Gap 8.0 mmol/L (3-11) Est Creatinine Clear Calc Drug Dose 106.4 ml/min Estimated GFR () 106.7 Estimated GFR (Non- 92.1 BUN/Creatinine Ratio 16.1 (10-20) Calcium Level 9.5 mg/dl (8.5-10.1) Magnesium Level 1.9 mg/dl (1.8-2.4) Total Bilirubin 0.7 mg/dl (0.2-1) Aspartate Amino Transf (AST/SGOT) 15 U/L (15-37) Alanine Aminotransferase (ALT/SGPT) 26 U/L (12-78) Alkaline Phosphatase 57 U/L (45-117) Creatine Kinase MB < 0.5 ng/ml (0.5-3.6) Total Protein 8.0 gm/dl (6.4-8.2) Albumin 3.6 gm/dl (3.4-5.0) Globulin 4.4 gm/dl (2.5-4.0) Albumin/Globulin Ratio 0.8 (0.9-2) Thyroid Stimulating Hormone (TSH) 1.850 uIu/ml (0.300-4.500) Creatine Kinase MB Ratio (0-3.0) Troponin I < 0.015 ng/ml (0-0.045) Bedside Troponin I < 0.030 ng/ml (0-0.045) Medications Administered Medications (Trade) Dose Ordered Sig/Abbi Route Start Time Stop Time Status Last Admin Dose Admin Sodium Chloride 1,000 ml @ 999 mls/hr Q1H1M STAT IV 12/01/17 08:36 12/01/17 09:36 DC 12/01/17 08:36 999 MLS/HR Ketorolac Tromethamine (Toradol Inj) 30 mg NOW STAT IV 12/01/17 10:25 12/01/17 10:26 DC 12/01/17 10:58 30 MG ECG Indication: chest pain, palpitations Rate (beats per minute): 105 Rhythm: sinus tachycardia Findings: PVC Comparison ECG Date: 08/2017 Change: no significant change ED Course The patient was seen and evaluated as above. IV access obtained. Labs drawn. EKG performed. This was interpreted by myself as above. I reviewed all labs and CXR. Repeat troponin and EKG performed. Repeat EKG showed NSR at rate of 92, no PVC's, no ectopy. Reviewed/interpreted by myself. I discussed all results with the patient at bedside. She is feeling better and not having palpitations, but does report headache. She was given 30mg Toradol IV and notes improvement in her symptoms. I discussed the case with my attending. Discharge instructions reviewed, the patient was discharged home in good condition. Medical Decision This is a 57-year-old female patient presents to the emergency department today complaining of palpitations and chest discomfort which began last night. The patient states the palpitations were getting worse, which caused her to come to the emergency department. While here, she is complaining of intermittent palpitations initially, and when she complains of them, she appears to have PVCs on the monitor. The patient was given 1 L normal saline solution while here, and after sitting for a while and relaxing, her symptoms improved. Her cardiac workup was negative, and labs did not show any signs of infection, electrolyte, or metabolic abnormalities. The patient's troponins were negative 2. Her EKG was not significant for any acute abnormality. I suspect the patient's palpitations are related to the PVCs, whether this is from some mild dehydration, stress or anxiety, or other factor. She was encouraged to follow up with her primary care provider for ongoing management and evaluation. All questions were answered to the patient's satisfaction. Etiologies such as ectopy, cardiac dysrhythmia, electrolyte abnormality, thyroid dysfunction, pulmonary embolism, infection, gastrointestinal, as well as others were entertained. Medication Reconcilliation Current Medication List: was personally reviewed by me Blood Pressure Screening Patient's blood pressure: Normal blood pressure Impression Primary Impression: Palpitations Departure Information Dispostion Home / Self-Care Condition GOOD Referrals Anali Mathias (PCP) Patient Instructions ED Palpitations, [facility] Additional Instructions He was seen in the emergency department today for heart palpitations and chest pain. Workup here in the ED was overall negative, however when you experience the palpitations, PCV's (premature beats) were noted on the monitor. I suspect this could be the cause of your palpitations. As discussed, you should eat a well-balanced diet, avoid caffeine, and drink plenty of fluids. Ibuprofen(Motrin, Advil) may be used for fever or pain. Use 600mg every six hours as needed. Take with food. Avoid using more than 2400mg in a 24 hour period. Do not use 2400mg per day for more than three consecutive days without physician direction. Prolonged inappropriate use can lead to stomach upset or ulcers. (AND/OR) Acetaminophen(Tylenol) may be used for fever or pain. Use 1000mg every six hours as needed. Avoid using more than 3000mg in a 24 hour period. You should follow-up on Monday at the latest with your primary care provider for ongoing management. She may need to have a Holter monitor to determine the cause of your symptoms. You should consider cardiology referral. Please return to the ED for worsening symptoms, chest pain which does not improve, difficulty breathing, or serious illness.
[2017-12-01] MEDS ORDERED: TYLOTC500 PO (12:15)
[2017-12-01] MEDS ORDERED: CHOL2000 PO (14:14)
[2017-12-01] MEDS ORDERED: KLN5X PO (17:29)
[2017-12-01] MEDS ORDERED: LEVO50TA6 PO (18:02)
[2017-12-01] MEDS ORDERED: OMEG10007 PO (18:40)
== END 2017-12-01 11:42 | disposition home or self-care (01) ==
LOC: C.EDB 07:57 → C.EDA 11:42
DX: R00.2 Palpitations (principal); F41.9 Anxiety disorder, unspecified; E03.9 Hypothyroidism, unspecified; Z86.73 Personal history of transient ischemic attack (TIA), and cerebral infarction without residual deficits; Z83.3 Family history of diabetes mellitus; Z82.49 Family history of ischemic heart disease and other diseases of the circulatory system; Z98.1 Arthrodesis status; R07.89 Other chest pain

== ENCOUNTER → 2017-12-05 | Outpatient (CLI) | payer BC ==
[~2017-12-05] MED LIST changes: -BUSP5TAB59 PO; +CHOL2000 PO; +CLR10 PO; +COEN75CA PO; +DPH/ PO; +IBUP-1050 PO; +KLN5X PO; -MULTTAB58 PO; +OMEG10007 PO; +SALI0.6510 NAE; +SYN75 PO; +TYLOTC500 PO; +VITBC PO
--- NOTE | 2017-12-05 08:25 | DIAGNOSTIC IMAGING REPORT ---
R KNEE 4 OR MORE CLINICAL HISTORY: RIGHT KNEE PAIN COMPARISON STUDY: None. FINDINGS: Severe cartilage space narrowing within the bilateral medial compartments of the knees. There are tricompartmental marginal osteophytes. No fracture or dislocation. Mild varus angulation of the bilateral knees. No significant right knee effusion. Soft tissues are unremarkable. There is mild cartilage space narrowing within the lateral patellofemoral compartment. IMPRESSION: Tricompartmental osteoarthritis within the bilateral knees most notable within the medial compartments. Electronically signed by: Ernst Arredondo M.D. 12/05/2017 8:23 AM Dictated Date/Time: 12/05/2017 8:21 AM
== END | disposition home or self-care (01) ==
LOC: C.RDSM 07:45
PROVIDERS: ATTEND Family Medicine
DX: M25.561 Pain in right knee (principal)

== ENCOUNTER 2017-12-28 07:01 | Emergency (ER) | payer BC ==
[~2017-12-28] VITALS: Ht 154.9 cm; Wt 124.9 kg
[2017-12-28 07:03] VITALS: BP 136/81; TEMP 37; Ht 154.9 cm; Wt 124.9 kg
[2017-12-28] MEDS ORDERED: KETOROLAC TROMETHAMINE 30 MG/ML VIAL IV STA (07:25)
[2017-12-28] MEDS ORDERED: PROCHLORPERAZINE 5 MG/ML 2 ML VIAL IV STA (07:25)
[2017-12-28] MEDS ORDERED: SODIUM CHLORIDE 0.9% 1000ML 1,000 ML IV STA (07:25)
[2017-12-28 07:31] VITALS: O2SAT 95
[2017-12-28 08:22] LABS: INFLUENZA B ANTIGEN Neg for Influ B (NEG)
[2017-12-28 08:39] LABS: BASO % 0.5 %; BASO ABS # 0.03 K/uL (0-0.2); EOS % 4.9 %; EOS ABS # 0.28 K/uL (0-0.5); HEMATOCRIT 37.7 % (37-47); HEMOGLOBIN 12.9 g/dL (12.0-16.0); IG# 0.02 K/uL (0.00-0.02); LYMPH % 25.7 %; LYMPH ABS # 1.46 K/uL (1.2-3.4); MEAN CELL VOLUME 83.6 fL (80-100); MEAN CORPUSCULAR HEMOGLOBIN 28.6 pg (25-34); MEAN CORPUSCULAR HGB CONC 34.2 g/dl (32-36); MEAN PLATELET VOLUME 8.7 fL (7.4-10.4); MONO % 7.4 %; MONO ABS # 0.42 K/uL (0.11-0.59); NEUT % 61.1 %; NEUT ABS # 3.47 K/uL (1.4-6.5); PLATELET COUNT 216 K/uL (130-400); RED CELL DISTRIBUTION WIDTH CV 14.3 % (11.5-14.5); RED CELL DISTRIBUTION WIDTH SD 43.3 fL (36.4-46.3); WHITE BLOOD COUNT 5.68 K/uL (4.8-10.8)
[2017-12-28 08:53] LABS: ALBUMIN 3.5 gm/dl (3.4-5.0); BLOOD UREA NITROGEN 8 mg/dl (7-18); CARBON DIOXIDE 29 mmol/L (21-32); CREATININE 0.68 mg/dl (0.60-1.20); GLUCOSE 94 mg/dl (70-99); LIPASE 90 U/L (73-393); POTASSIUM 3.9 mmol/L (3.5-5.1); SODIUM 138 mmol/L (136-145)
[2017-12-28 08:58] LABS: ALKALINE PHOSPHATASE 67 U/L (45-117); ALT/SGPT 23 U/L (12-78); AST/SGOT 17 U/L (15-37)
--- NOTE | 2017-12-28 09:30 | DIAGNOSTIC IMAGING REPORT ---
CHEST 2 VIEWS ROUTINE CLINICAL HISTORY: Atypical chest pain, cough, shortness of breath. COMPARISON STUDY: 12/01/2017 FINDINGS: There is mild superior mediastinal prominence, likely secondary to fat deposition given the patient's body habitus. The heart is normal in size. There is no failure. There is no focal pulmonary consolidation. Postsurgical changes are present within the cervical spine. No pleural effusions are visualized.[ IMPRESSION: No active disease in the chest. Electronically signed by: Terrance Sanders M.D. 12/28/2017 9:28 AM Dictated Date/Time: 12/28/2017 9:27 AM
[2017-12-28 10:10] VITALS: PULSE 90; O2SAT 98
--- NOTE | 2017-12-28 10:15 | EMERGENCY ROOM VISIT NOTE ---
History First contact with patient: 07:07 Chief Complaint: CARDIAC ASSESSMENT Stated Complaint: CHEST PRESSURE,MIGRAINE-3DAYS Nursing Triage Summary: Pt. 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 She also states she has chest pressure, but has not followed up with cardiology. Pt. does not appear to be in any distress or discomfort at this time. History of Present Illness The patient is a 57 year old female who presents to the Emergency Room with complaints of upper respiratory symptoms, including runny nose, nonproductive cough, sore throat, myalgias and weakness. The patient reports that her symptoms started on Monday. She then started to develop chest pressure and a migraine yesterday. The patient does report a history of migraines. She took Excedrin without relief. She describes a pounding left-sided headache with no photophobia or phonophobia. The patient denies any pain radiating into the back or abdomen. She denies any neck pain. The patient reports that she has had chills at home, but has not checked her temperature. The patient did get the influenza immunization this past fall. She currently rates her discomfort a 9 out of 10. Review of Systems HEENT: Denies dizziness, visual problems, hearing loss, tinnitus. Denies difficulty swallowing or oral lesions. PULMONARY: Denies sputum production or hemoptysis. Otherwise see HPI. CARDIOVASCULAR: Denies palpitations, dyspnea on exertion, orthopnea or peripheral edema. Otherwise see HPI. GASTROINTESTINAL: Denies diarrhea, constipation, nausea, vomiting, or abdominal pain. GENITOURINARY: Denies dysuria, frequency, urgency or nocturia. NEUROLOGIC: Denies history of epilepsy, CVA, TIA or chronic headaches. MUSCULOSKELETAL: Denies history of joint tenderness/swelling. SKIN: Denies rashes or lesions. PSYCHIATRIC: Denies history of depression or mental illness. ENDOCRINE: Denies history of diabetes or thyroid disorders. Past Medical/Surgical History Medical Problems: (1) Anxiety (2) Chest pain (3) Hypothyroidism (4) Spinal stenosis (5) TIA (transient ischemic attack) (6) Uterine artery ablation Surgical Problems: (1) History of carpal tunnel surgery of left wrist (2) History of carpal tunnel surgery of right wrist (3) S/P appendectomy (4) S/P cervical spinal fusion (5) S/P lumbar spinal fusion (6) S/P partial hysterectomy (7) S/P tubal ligation Family History Cancer Diabetes mellitus Heart disease Hypertension Lung disease Social History Smoking Status: Never Smoker Alcohol Use: none Drug Use: none Marital Status: Housing Status: lives with family Occupation Status: employed Current/Historical Medications Scheduled Cholecalciferol (Vitamin D3), 2,000 UNITS PO DAILY Clonazepam (Clonazepam), 0.5 MG PO HS Fish Oil ([place]-3), 1 CAP PO DAILY Levothyroxine Sodium (Levothyroxine Sodium), 50 MCG PO Q2D Levothyroxine Sodium (Synthroid), 75 MCG PO Q2D Vitamin B Complex (Vitamin B Complex), 1 TAB PO DAILY Scheduled PRN Diphenoxylate W/ Atropine (Lomotil), 1 TAB PO BID PRN for Loose Stool(s) Ibuprofen (Advil), 400-600 MG PO Q6H PRN for Pain Loratadine (Claritin), 10 MG PO DAILY PRN for Allergy Symptoms Saline ([place] Nasal [place]), 2 SPRAYS LAI DAILY PRN for Nasal Dryness Physical Exam Vital Signs Date Time Temp Pulse Resp B/P (MAP) Pulse Ox O2 Delivery O2 Flow Rate FiO2 12/28/17 08:56 91 100 12/28/17 08:51 85 100 12/28/17 08:46 79 100 12/28/17 07:41 85 17 99 12/28/17 07:36 90 16 98 12/28/17 07:31 95 Room Air 12/28/17 07:31 86 14 96 12/28/17 07:26 83 10 96 12/28/17 07:23 98 Room Air 12/28/17 07:03 37.0 83 18 136/81 98 Room Air Physical Exam CONSTITUTIONAL: Healthy and well nourished. Alert and oriented X 3 with positive affect. Patient does not appear in any acute distress, nor does she appear acutely toxic. HEENT: Normocephalic, atraumatic. Pupils equal, round and reactive. Ears and nares are clear. No conjunctival injection or scleral icterus. OROPHARYNX: Mucous membranes are dry. No tonsillar hypertrophy or exudates. NECK: Full active range of motion without discomfort. No nuchal rigidity, JVD or carotid bruits. RESPIRATORY: Clear to auscultation bilaterally with no wheezing, crackles, rhonchi or stridor. CARDIOVASCULAR: Regular rate and rhythm with no murmurs, rubs or gallops. GASTROINTESTINAL: Bowel sounds present in all quadrants. Soft and nontender to palpation. MUSCULOSKELETAL: Full range of motion of all joints without discomfort. INTEGUMENTARY: No rash or other significant dermatologic conditions noted. HEMATOLOGIC: No ecchymosis or petechiae. NEUROLOGIC: Cranial nerves II-XII grossly intact. No focal neurologic deficits noted. Medical Decision & Procedures ER Provider Diagnostic Interpretation: My interpretation of an ECG shows a sinus rhythm of 95 bpm with a PVC. No ST elevation noted. My interpretation of a two-view chest x-ray does not show any consolidations, pneumothorax or cardiomegaly. Radiologist report is as follows: CHEST 2 VIEWS ROUTINE CLINICAL HISTORY: Atypical chest pain, cough, shortness of breath. COMPARISON STUDY: 12/01/2017 FINDINGS: There is mild superior mediastinal prominence, likely secondary to fat deposition given the patient's body habitus. The heart is normal in size. There is no failure. There is no focal pulmonary consolidation. Postsurgical changes are present within the cervical spine. No pleural effusions are visualized.[ IMPRESSION: No active disease in the chest. Laboratory Results 12/28/17 08:29 Red Blood Count 4.51, Mean Corpuscular Volume 83.6, Mean Corpuscular Hemoglobin 28.6, Mean Corpuscular Hemoglobin Concent 34.2, Mean Platelet Volume 8.7, Neutrophils (%) (Auto) 61.1, Lymphocytes (%) (Auto) 25.7, Monocytes (%) (Auto) 7.4, Eosinophils (%) (Auto) 4.9, Basophils (%) (Auto) 0.5, Neutrophils # (Auto) 3.47, Lymphocytes # (Auto) 1.46, Monocytes # (Auto) 0.42, Eosinophils # (Auto) 0.28, Basophils # (Auto) 0.03 12/28/17 08:29 Test 12/28/17 07:42 12/28/17 08:29 Influenza Type A Antigen Neg for Influ A (NEG) Influenza Type B Antigen Neg for Influ B (NEG) White Blood Count 5.68 K/uL (4.8-10.8) Red Blood Count 4.51 M/uL (4.2-5.4) Hemoglobin 12.9 g/dL (12.0-16.0) Hematocrit 37.7 % (37-47) Mean Corpuscular Volume 83.6 fL (80-100) Mean Corpuscular Hemoglobin 28.6 pg (25-34) Mean Corpuscular Hemoglobin Concent 34.2 g/dl (32-36) Platelet Count 216 K/uL (130-400) Mean Platelet Volume 8.7 fL (7.4-10.4) Neutrophils (%) (Auto) 61.1 % Lymphocytes (%) (Auto) 25.7 % Monocytes (%) (Auto) 7.4 % Eosinophils (%) (Auto) 4.9 % Basophils (%) (Auto) 0.5 % Neutrophils # (Auto) 3.47 K/uL (1.4-6.5) Lymphocytes # (Auto) 1.46 K/uL (1.2-3.4) Monocytes # (Auto) 0.42 K/uL (0.11-0.59) Eosinophils # (Auto) 0.28 K/uL (0-0.5) Basophils # (Auto) 0.03 K/uL (0-0.2) RDW Standard Deviation 43.3 fL (36.4-46.3) RDW Coefficient of Variation 14.3 % (11.5-14.5) Immature Granulocyte % (Auto) 0.4 % Immature Granulocyte # (Auto) 0.02 K/uL (0.00-0.02) D-Dimer 960 ug/L FEU (0-500) Anion Gap 5.0 mmol/L (3-11) Est Creatinine Clear Calc Drug Dose 114.7 ml/min Estimated GFR () 113.3 Estimated GFR (Non- 97.8 BUN/Creatinine Ratio 11.9 (10-20) Calcium Level 9.0 mg/dl (8.5-10.1) Total Bilirubin 0.6 mg/dl (0.2-1) Direct Bilirubin 0.1 mg/dl (0-0.2) Aspartate Amino Transf (AST/SGOT) 17 U/L (15-37) Alanine Aminotransferase (ALT/SGPT) 23 U/L (12-78) Alkaline Phosphatase 67 U/L (45-117) Troponin I < 0.015 ng/ml (0-0.045) Total Protein 8.0 gm/dl (6.4-8.2) Albumin 3.5 gm/dl (3.4-5.0) Lipase 90 U/L (73-393) The above labs were reviewed and were grossly normal. Influenza screen is negative. Troponin is normal. D-dimer is elevated, however review of prior medical record shows that the patient has a chronically elevated d-dimer. Medications Administered Medications (Trade) Dose Ordered Sig/Abbi Route Start Time Stop Time Status Last Admin Dose Admin Sodium Chloride 1,000 ml @ 999 mls/hr Q1H1M STAT IV 12/28/17 07:25 12/28/17 08:25 DC 12/28/17 08:45 999 MLS/HR Ketorolac Tromethamine (Toradol Inj) 30 mg NOW STAT IV 12/28/17 07:25 12/28/17 07:30 DC 12/28/17 08:45 30 MG Prochlorperazine Edisylate (Compazine Inj) 10 mg NOW STAT IV 12/28/17 07:25 12/28/17 07:30 DC 12/28/17 08:44 10 MG ED Course Patient history and physical exam were performed. Nurse's notes were reviewed. Vital signs were reviewed and were normal. O2 saturation is 98% on room air. The patient is not tachycardic or febrile. The patient appears in moderate discomfort from her headache. IV access was established, and labs were drawn. The patient was hydrated with a liter normal saline, and was administered IV Toradol and Compazine for pain. The patient reported almost complete resolution of her migraine. Review of labs shows no acute findings except for an elevated d-dimer. It is noted with review of prior medical records that the patient has a chronically elevated d-dimer. Review of records also shows that the patient has had multiple CT studies in the past. I did discuss this with the patient, and she elected to defer CT imaging of the chest. Otherwise remaining labs were normal. ECG was also normal. The case was also discussed with Dr. Horn, ED attending physician, who agrees with outpatient follow-up. The patient reports that she has an appointment at 11 AM this morning with Nae Mathias PA-C. The patient was advised that her symptoms are likely secondary to a viral upper respiratory infection. She also appears mildly dehydrated. The patient was encouraged to remain well-hydrated. She may continue with all medications as needed for her migraine and other symptoms. She was instructed to return for any progressively worsening chest pain, diaphoresis, worsening shortness of breath, increasing fever or other concerns. The patient was happy with plan of care, and voiced understanding of all discharge instructions. Medical Decision Patient presents with multiple complaints that are most consistent with a viral upper respiratory infection. The patient does complain of some chest discomfort and shortness of breath. The patient does have a chronically elevated d-dimer, however she has had multiple CTs in the past. The patient deferred CT imaging today. I do feel that the patient is at low risk for pulmonary embolus. Her chest x-ray does not show any evidence for pneumonia. Cardiac enzymes and ECG are also normal. I do not suspect meningitis, intracranial bleed or other more significant infectious etiologies. Medication Reconcilliation Current Medication List: was personally reviewed by me Blood Pressure Screening Patient's blood pressure: Normal blood pressure Impression Primary Impression: Viral URI Additional Impression: Migraine Departure Information Referrals Anali Mathias (PCP) Patient Instructions My [facility] Problem Qualifiers Additional Impression: Migraine Migraine type: without aura Status migrainosus presence: without status migrainosus Intractability: not intractable Qualified Codes: G43.009 - Migraine without aura, not intractable, without status migrainosus
== END 2017-12-28 10:11 | disposition home or self-care (01) ==
LOC: C.EDB 07:02
DX: J06.9 Acute upper respiratory infection, unspecified (principal); G43.009 Migraine without aura, not intractable, without status migrainosus; F41.9 Anxiety disorder, unspecified; E03.9 Hypothyroidism, unspecified; M48.00 Spinal stenosis, site unspecified; Z98.1 Arthrodesis status; Z86.73 Personal history of transient ischemic attack (TIA), and cerebral infarction without residual deficits; Z80.9 Family history of malignant neoplasm, unspecified; Z83.3 Family history of diabetes mellitus; Z82.49 Family history of ischemic heart disease and other diseases of the circulatory system

== ENCOUNTER → 2018-02-28 | Outpatient (CLI) | payer BC ==
[~2018-02-28] MED LIST changes: -COEN75CA PO; -TYLOTC500 PO
--- NOTE | 2018-02-28 13:03 | DIAGNOSTIC IMAGING REPORT ---
CHEST 2 VIEWS ROUTINE CLINICAL HISTORY: M54.9, R53.83, R50.9, R05, D86.86 FEVER, COUGH, SARCOID ARTHROPATHY. COMPARISON STUDY: 12/28/2017 FINDINGS: There is decreased mediastinal fullness. The heart is normal in size. There is no failure. There is no focal pulmonary consolidation. There are no pleural effusions. Postsurgical changes are present within the cervical spine.[ IMPRESSION: No active disease in the chest. Electronically signed by: Terrance Sanders M.D. 02/28/2018 1:02 PM Dictated Date/Time: 02/28/2018 1:01 PM
== END | disposition home or self-care (01) ==
LOC: C.RAD1850 12:29
PROVIDERS: ATTEND Nurse Practitioner Family
DX: M54.9 Dorsalgia, unspecified (principal); R53.83 Other fatigue; R50.9 Fever, unspecified; R05 Cough; D86.86 Sarcoid arthropathy

== ENCOUNTER 2018-05-22 07:13 | Emergency (ER) | payer BC ==
[~2018-05-22] VITALS: Ht 154.9 cm; Wt 128.1 kg
[2018-05-22 07:14] VITALS: TEMP 36.8; Ht 154.9 cm; Wt 128.1 kg
[2018-05-22] MEDS ORDERED: BSP/5 PO (07:42)
[2018-05-22] MEDS ORDERED: SODIUM CHLORIDE 0.9% 1000ML 1,000 ML IV STA (07:44)
[2018-05-22] MEDS ORDERED: MoRPHine SULFATE 10 MG/ML CARP/VIAL IV STA ×2 (07:44→09:16)
[2018-05-22] MEDS ORDERED: ONDANSETRON INJ 2 MG/ML 2 ML VIAL IV STA (07:44)
[2018-05-22 08:19] LABS: BASO % 0.6 %; BASO ABS # 0.03 K/uL (0-0.2); EOS % 3.6 %; EOS ABS # 0.18 K/uL (0-0.5); HEMATOCRIT 37.5 % (37-47); HEMOGLOBIN 12.5 g/dL (12.0-16.0); IG# 0.03 K/uL (0.00-0.02); LYMPH % 29.6 %; LYMPH ABS # 1.47 K/uL (1.2-3.4); MEAN CELL VOLUME 84.7 fL (80-100); MEAN CORPUSCULAR HEMOGLOBIN 28.2 pg (25-34); MEAN CORPUSCULAR HGB CONC 33.3 g/dl (32-36); MEAN PLATELET VOLUME 9.9 fL (7.4-10.4); MONO % 4.6 %; MONO ABS # 0.23 K/uL (0.11-0.59); NEUT ABS # 3.03 K/uL (1.4-6.5); PLATELET COUNT 215 K/uL (130-400); RED CELL DISTRIBUTION WIDTH CV 14.4 % (11.5-14.5); RED CELL DISTRIBUTION WIDTH SD 44.5 fL (36.4-46.3); WHITE BLOOD COUNT 4.97 K/uL (4.8-10.8)
--- NOTE | 2018-05-22 08:30 | DIAGNOSTIC IMAGING REPORT ---
CT SCAN OF THE ABDOMEN AND PELVIS WITHOUT CONTRAST CLINICAL HISTORY: Flank pain hematuria COMPARISON STUDY: 04/06/2017 TECHNIQUE: CT scan of the abdomen and pelvis was performed from the lung bases to the proximal femurs. Images are reviewed in the axial, sagittal, and coronal planes. IV contrast was not administered for this examination. A dose lowering technique was utilized adhering to the principles of ALARA. CT DOSE: 1942.73 mGy.cm FINDINGS: Lower chest: The heart is normal in size and configuration, without pericardial effusion. The lung bases and pleural spaces are clear. Liver: The unenhanced liver is normal in size, contour, and attenuation. There is no intrahepatic biliary ductal dilatation. Gallbladder: Unremarkable. Spleen: Normal in size and attenuation. Pancreas: Unremarkable. Adrenal glands: Unremarkable. Kidneys: There is a punctate nonobstructing left renal calculus. No ureteral or bladder calculi are visualized. Parapelvic cysts are again visualized. Bowel: There are no transition zones indicate bowel obstruction. There is no acute diverticulitis. There are no findings to indicate acute appendicitis. Peritoneum: There is no intraperitoneal free air or abdominal ascites. Vasculature: The abdominal aorta is normal in course and caliber. Adenopathy: There is a stable mildly enlarged retrocaval lymph node Pelvic viscera: Uterus is surgically absent Skeletal structures: Postsurgical changes are present within the lumbar spine. IMPRESSION: 1. No evidence of bowel obstruction. No evidence of free air 2. No evidence of acute appendicitis. No evidence of acute diverticulitis 3. Nonobstructing punctate left renal calculus. No ureteral calculi identified. Electronically signed by: Terrance Sanders M.D. 05/22/2018 8:27 AM Dictated Date/Time: 05/22/2018 8:13 AM
--- NOTE | 2018-05-22 08:35 | DIAGNOSTIC IMAGING REPORT ---
CHEST 2 VIEWS ROUTINE CLINICAL HISTORY: FLANK PAIN COMPARISON STUDY: 02/28/2018 FINDINGS: The heart is normal in size. There is mild prominence of the superior mediastinum likely secondary to mediastinal fat deposition given the patient's body habitus. There is no focal pulmonary consolidation. There is no failure. There are no pleural effusions.[ IMPRESSION: No active disease in the chest. Electronically signed by: Terrance Sanders M.D. 05/22/2018 8:33 AM Dictated Date/Time: 05/22/2018 8:31 AM
[2018-05-22 08:44] LABS: CREATININE 0.7 mg/dl (0.60-1.20)
[2018-05-22 08:45] LABS: ALBUMIN 3.5 gm/dl (3.4-5.0); CALCIUM 8.8 mg/dl (8.5-10.1); POTASSIUM 4.1 mmol/L (3.5-5.1); TOTAL PROTEIN 7.6 gm/dl (6.4-8.2)
[2018-05-22] MEDS ORDERED: OPTIRAY 320 IV PRN (09:45)
--- NOTE | 2018-05-22 09:59 | DIAGNOSTIC IMAGING REPORT ---
(CHEST FOR PE) ANGIO WITH CT DOSE: 670.32 mGy.cm HISTORY: Chest pain dyspnea TECHNIQUE: Multiaxial CT images of the chest were performed following the intravenous administration of contrast to evaluate the pulmonary arteries. Maximal intensity projection images were also obtained. A dose lowering technique was utilized adhering to the principles of ALARA. COMPARISON STUDY: 09/03/2017 FINDINGS: There is a normal caliber thoracic aorta with no evidence for dissection. There is no evidence for pulmonary embolus. No pleural effusions. No pneumothorax. The liver and spleen are unremarkable. No mediastinal or hilar lymphadenopathy. The central airways are patent. The lungs are clear. IMPRESSION: No evidence for pulmonary embolus. The lungs are clear. The above report was generated using voice recognition software. It may contain grammatical, syntax or spelling errors. Electronically signed by: Negrito Holland M.D. 05/22/2018 9:58 AM Dictated Date/Time: 05/22/2018 9:56 AM
[2018-05-22] MEDS ORDERED: OXYC-737 PO (10:34)
[2018-05-22 11:39] VITALS: BP 118/66; PULSE 72; O2SAT 97
--- NOTE | 2018-05-25 15:18 | EMERGENCY ROOM VISIT NOTE ---
ED Visit Note First contact with patient: 07:19 Chief Complaint: Right flank pain. History of Present Illness: Ms. Villanueva is a 57-year-old white female who ambulates into the ED accompanied by her complaining of right flank pain. Historically patient reports she has a history of kidney stones, frequent urinary tract infection, status post 4 sections, uterine ablation, tubal ligation, partial hysterectomy, appendectomy and cervical and lumbar spinal fusion. Patient reports she had acute onset of right flank pain that started approximately 4-5 days ago. Since that time her pain has been constant but has waxed and waned in intensity. She describes her discomfort as a sharp sensation "under the ribs on the right and the flank". She currently rates her discomfort 8/10 and reports this is the most severe but it has been milder at 5/ 10. Her pain is radiating around the abdomen and into the right mid quadrant. She reports she has been using [id number] medication without relief of her discomfort. Movement of the thoracic and lumbar back increases her discomfort. Associated with her pain she reports "it becomes of severe at times that it takes her breath away" and she reports been nauseated but has not vomited. She denies fevers, chills, sweats, skin eruptions, skin color changes, upper respiratory tract symptoms, cough, wheezing, previous clots, claudication, cramping, recent surgery,/extended travel/inactivity, chest pain, diarrhea, constipation, rectal bleeding, urinary symptoms, hematuria, vaginal bleeding, vaginal discharge, genital paresthesias, bowel and bladder dysfunction, lower extremity weakness/numbness/tingling. Review of Systems: As noted above in history of present illness. All body systems were reviewed and found to be negative as noted above. Past Medical History: As previously noted, anxiety, hypothyroidism, TIA, uterine ablation, bilateral carpal tunnel release and status post carpal tunnel release. Current Medications: Medications Dose Route/Sig Max Daily Dose Days Date Category Buspirone HCl 5 Mg Tab 5 Mg PO HS 05/22/18 Reported Vitamin B Complex 1 Tab Tab 1 Tab PO DAILY 12/01/17 Reported Advil (Ibuprofen) 200 Mg Tab 400-600 Mg PO Q6H PRN 12/01/17 Reported Synthroid (Levothyroxine Sodium) 75 Mcg Tab 75 Mcg PO Q2D 12/01/17 Reported Vitamin D3 (Cholecalciferol) 2,000 Unit Cap 2,000 Units PO DAILY 07/14/17 Reported [place]-3 (Fish Oil) 1 Ea Cap 1 Cap PO DAILY 04/06/17 Reported Levothyroxine Sodium 50 Mcg Tab 50 Mcg PO Q2D 04/06/17 Reported Clonazepam 0.5 Mg Tab 0.5 Mg PO HS 04/24/16 Reported Claritin (Loratadine) 10 Mg Tab 10 Mg PO DAILY PRN 06/30/14 Reported [place] (Saline) 0.65 % Spr 2 Sprays LAI DAILY PRN 07/10/13 Reported Lomotil (Diphenoxylate W/ Atropine) 1 Tab Tab 1 Tab PO BID PRN 07/10/13 Reported Allergies to Medications: Benadryl, levofloxacin, prednisone, quinolones, sulfa , tramadol Social History: Patient is currently employed; she feels safe in her home environment; she denies tobacco and alcohol use. Physical Examination: Vital Signs: Date Time Temp Pulse Resp B/P (MAP) Pulse Ox O2 Delivery O2 Flow Rate FiO2 05/22/18 11:39 72 17 118/66 97 05/22/18 10:39 79 16 110/61 99 Room Air 05/22/18 09:26 69 18 98/63 100 Room Air 05/22/18 08:39 85 18 115/71 98 Room Air 05/22/18 08:24 77 05/22/18 07:14 36.8 83 20 126/83 100 Room Air GENERAL: 57-year-old female in mild to moderate distress due to pain, nontoxic- appearing, afebrile and hemodynamically stable. NEUROLOGICAL: Awake, alert and oriented to person, place and time. Answering questions appropriately and following commands. Normal gait. Good hand eye coordination. No focal motor sensory deficits. SKIN: Warm, dry and pink. No soft tissue eruptions or trauma noted. HEENT: Atraumatic and normocephalic. PERRLA. Sclera white and conjunctiva pink. No drainage from naris. Oral cavity moist and pink. Pharynx is nonerythematous or edematous. Speech normal. No lymphadenopathy. Trachea midline. No jugular venous distention. BACK: No tenderness over the bony spine or paraspinous musculature. Mild right sided CVA tenderness. THORAX: Lungs sounds are clear to auscultation and equal bilaterally with symmetrical chest wall. No wheezing, rales or rhonchi. No crepitus, tenderness , subcutaneous air or deformities noted. HEART: Regular rate and rhythm. No gallops, rubs or murmurs are appreciated. ABDOMEN: Obese, soft and nontender. Positive bowel sounds in all quadrants. No guarding, rigidity or organomegaly. EXTREMITIES: Moves all extremities well on command and with purpose. All distal neurovascular statuses are intact and equal bilaterally. No calf tenderness or cords. ED Course: Patient is assessed as noted above. Patient's medication list was reviewed. Laboratory Testing: Test 05/22/18 07:51 05/22/18 08:00 05/22/18 09:12 Range/Units Urine Color YELLOW Urine Appearance CLEAR CLEAR Urine pH 5.5 4.5-7.5 Urine Specific [place] 1.007 1.000-1.030 Urine Protein NEG NEG Urine Glucose (UA) NEG NEG Urine Ketones NEG NEG Urine Occult Blood NEG NEG Urine Nitrite NEG NEG Urine Bilirubin NEG NEG Urine Urobilinogen NEG NEG Urine Leukocyte Esterase NEG NEG White Blood Count 4.97 4.8-10.8 K/uL Red Blood Count 4.43 4.2-5.4 M/uL Hemoglobin 12.5 12.0-16.0 g/dL Hematocrit 37.5 37-47 % Mean Corpuscular Volume 84.7 80-100 fL Mean Corpuscular Hemoglobin 28.2 25-34 pg Mean Corpuscular Hemoglobin Concent 33.3 32-36 g/dl Platelet Count 215 130-400 K/uL Mean Platelet Volume 9.9 7.4-10.4 fL Neutrophils (%) (Auto) 61.0 % Lymphocytes (%) (Auto) 29.6 % Monocytes (%) (Auto) 4.6 % Eosinophils (%) (Auto) 3.6 % Basophils (%) (Auto) 0.6 % Neutrophils # (Auto) 3.03 1.4-6.5 K/uL Lymphocytes # (Auto) 1.47 1.2-3.4 K/uL Monocytes # (Auto) 0.23 0.11-0.59 K/uL Eosinophils # (Auto) 0.18 0-0.5 K/uL Basophils # (Auto) 0.03 0-0.2 K/uL RDW Standard Deviation 44.5 36.4-46.3 fL RDW Coefficient of Variation 14.4 11.5-14.5 % Immature Granulocyte % (Auto) 0.6 % Immature Granulocyte # (Auto) 0.03 0.00-0.02 K/uL Sodium Level 136 136-145 mmol/L Potassium Level 4.1 3.5-5.1 mmol/L Chloride Level 103 98-107 mmol/L Carbon Dioxide Level 29 21-32 mmol/L Anion Gap 4.0 3-11 mmol/L Blood Urea Nitrogen 11 7-18 mg/dl Creatinine 0.70 0.60-1.20 mg/dl Est Creatinine Clear Calc Drug Dose 113.2 ml/min Estimated GFR () 112.3 Estimated GFR (Non- 96.9 BUN/Creatinine Ratio 15.0 10-20 Random Glucose 104 70-99 mg/dl Calcium Level 8.8 8.5-10.1 mg/dl Total Bilirubin 0.4 0.2-1 mg/dl Direct Bilirubin 0-0.2 mg/dl Aspartate Amino Transf (AST/SGOT) 24 15-37 U/L Alanine Aminotransferase (ALT/SGPT) 26 12-78 U/L Alkaline Phosphatase 65 45-117 U/L Total Protein 7.6 6.4-8.2 gm/dl Albumin 3.5 3.4-5.0 gm/dl Lipase 150 73-393 U/L Chemistry Specimen Hemolysis Bedside D-Dimer > 450 0-450 ng/mlFEU Noncontrast Abdominal/Pelvic CT: Was reviewed by myself and read by the radiologist showing no evidence of bowel obstruction, free air, acute appendicitis, acute diverticulitis or ureter calculi. It is noted that she has a nonobstructive left renal calculus. Chest X-Rays: Were read by myself and the radiologist and shows no acute infiltrates, effusions or pneumothorax. Normal heart silhouette and bony anatomy. Radiologist notes mild prominence of the superior mediastinum likely secondary to mediastinal fat deposit given patient's body habitus. EKG: Was read by myself and reviewed with Dr. Keller and shows normal sinus rhythm with a ventricular rate of 73 bpm. Normal axis, intervals and complexes. No acute ST changes indicating ischemia, injury or infarction. This was compared to a previous from December 2017 and no acute changes were noted. Chest CTA: Was reviewed by myself and read by the radiologist showing no evidence of pulmonary embolism and that the lungs are clear. Patient was hydrated with normal saline and received a total of 12 mg of morphine IV for pain and 4 mg of Zofran IV for nausea. Patient was reassessed multiple times during her stay in the emergency department. Patient's case was reviewed with Dr. Keller; we agreed on diagnostic approach, treatment, disposition and plan. Patient was educated about today's findings and instructed on her treatment plan ; she verbalized understanding and agreement with this plan. Clinical Impression: Right flank pain. Decision-Making: my differential diagnosis I considered ureter calculus, pyelonephritis, musculoskeletal disorder, pulmonary embolism, pneumonia, aortic aneurysm and other causes. Disposition: Patient discharged home in stable condition accompanied by her ; prior to departure she was reassessed and subjectively reported that she was pain and symptom-free. Plan: Patient was placed on a sliding pain medication scale of ibuprofen, acetaminophen and OxyIR; her name was checked in state database and no red flags were noted and she was given appropriate narcotic precautions. Patient was encouraged to stay well-hydrated with increased clear fluids. Patient was encouraged to continue her current prescriptions as prescribed. Patient was encouraged to follow-up with family physician and request follow-up care and treatment. Patient was encouraged return the ED for worsening/uncontrolled pain, fevers, vomiting or any new/concerning symptoms.
== END 2018-05-22 11:40 | disposition home or self-care (01) ==
LOC: C.EDB 07:14 → C.EDA 11:40
DX: R10.9 Unspecified abdominal pain (principal); R06.02 Shortness of breath; R11.0 Nausea; E03.9 Hypothyroidism, unspecified; F32.9 Major depressive disorder, single episode, unspecified; Z86.73 Personal history of transient ischemic attack (TIA), and cerebral infarction without residual deficits; Z79.899 Other long term (current) drug therapy; Z88.8 Allergy status to other drugs, medicaments and biological substances; Z88.1 Allergy status to other antibiotic agents; Z88.2 Allergy status to sulfonamides; Z88.6 Allergy status to analgesic agent

== ENCOUNTER 2020-06-23 05:18 | Observation (INO) ==
--- NOTE | 2020-06-17 11:09 | Anesthesiology Consultation ---
Date of Service June 17, 2020 Assessment & Plan (1) Encounter for pre-operative examination: Chart Review Chart Review: Acceptable Risk for Surgery (pending preop Covid testing ) and Patient NOT seen in Pre Admission Testing Pt has hx of sarcoidosis- not recent issues- will leave to anesthesiologist discretion if CXR needed AM of surgery. Per nursing assessment 06/16/2020, pt traveled to [facility] on 06/12/20 for fu neral- was only for immediate family- wore PPE and social distanced during . No known Covid positive contacts or Covid related symptoms. Covid test 06/17/20= results pending Removal of previous hardware, L2-3 decompression and fusion 10/01/2018 = done under [place] with grade 1 view with MAC #3. ETT #7.0. History Surgery Operation Date: 06/23/20 07:00 Proposed Procedures p Right Total Knee Arthroplasty - Suraj Kofi Chavez MD Height/Weight Height: 5 ft 1 in Weight: 117.934 kg Allergies Allergy/AdvReac Type Severity Reaction Status Date / Time hydroxyzine Allergy Intermediate HYPERACTIVE Verified 06/16/20 07:42 levofloxacin Allergy Mild RASH Verified 06/16/20 07:42 Quinolones Allergy Mild RASH Verified 06/16/20 07:42 wheat Allergy Mild GI Verified 06/16/20 07:42 SENSITIVITY diphenhydramine AdvReac Intermediate "KEEPS ME Verified 06/16/20 07:42 AWAKE INSTEAD OF MAKING ME SLEEPY" prednisone AdvReac Intermediate PSYCHOTIC Verified 06/16/20 07:42 COMPLICATIONS tramadol AdvReac Intermediate "OUT OF Verified 06/16/20 07:42 BODY" Sulfa (Sulfonamide AdvReac Mild GI UPSET Verified 06/16/20 07:42 Antibiotics) Medications Home Medications Medication Instructions Recorded Confirmed Last Taken clonazepam 0.25 mg PO HS PRN 07/17/18 06/16/20 09/30/18 22:00 0.5 mg po loratadine 10 mg PO QAM 07/17/18 06/16/20 09/27/18 06:00 sodium chloride [Saline Nasal] 1 spray INTRANASAL Q3H PRN 07/17/18 06/16/20 Unknown vitamin B complex 1 cap PO QAM 07/17/18 06/16/20 11/30/18 Krill Oil (Thelma 3 and 6) 2 cap PO HS 08/30/18 06/16/20 11/20/18 acetaminophen [Tylenol Extra 1,000 mg PO BID 08/30/18 06/16/20 11/29/18 22:00 Strength] levothyroxine 50 mcg tablet 50 mcg PO UD tab 07/25/19 06/16/20 Unknown Cbd Oil 250 mg PO DAILY PRN 06/01/20 06/16/20 Unknown cholecalciferol (vitamin D3) 25 2,000 units PO QAM cap 06/01/20 06/16/20 Unknown mcg (1,000 unit) capsule cinnamon bark 500 mg capsule 1,000 mg PO QAM cap 06/01/20 06/16/20 Unknown magnesium 250 mg tablet 400 mg PO DAILY tab 06/01/20 06/16/20 Unknown Past Medical History Medical History Anxiety Hx of sarcoidosis NO RECENT ISSUES. SINGLE FLARE 2012. Hypothyroidism Osteoarthritis Spinal stenosis Past Family History Family History Brother Diabetes Colorectal cancer Mother Diabetes Stomach cancer Sarcoidosis Lymphoma Father Coronary heart disease Past Surgical History Surgical History H/O bilateral salpingo-oophorectomy History of appendectomy History of bilateral tubal ligation History of breast biopsy R BREAST-BENIGN History of bronchoscopy TO DX SARCODOSIS 2013 History of carpal tunnel release RT/LEFT History of section X4 History of colonoscopy History of esophagogastroduodenoscopy (EGD) History of myringotomy S/P cervical spinal fusion GOOD ROM S/P lumbar spinal fusion S/P partial hysterectomy [place] teeth removed Social History Smoking Status: Never smoker Do You Dip or Chew Tobacco: No Hx Alcohol Use: No Hx Substance Use: No substance use type: does not use Testing Laboratory Results Laboratory Tests 04/20/20 06/01/20 06/01/20 15:28 14:05 14:05 WBC 4.80 Hgb 12.9 Hct 38.5 Plt Count 242 PT INR APTT Sodium 139 Potassium 3.9 Chloride 108 H Carbon Dioxide 26 BUN 13 Creatinine 0.64 Glucose 93 Hemoglobin A1c 5.4 06/01/20 14:05 WBC Hgb Hct Plt Count PT 10.7 INR 1.0 APTT 30.2 Sodium Potassium Chloride Carbon Dioxide BUN Creatinine Glucose Hemoglobin A1c 06/01/20= UA: negative Electrocardiogram Date: 07/04/19 Findings: + NSR @ (87bpm) Stress Test Date: 07/31/19 Type: DSE Resting EF: 65 to 70% Resting LV Function: normal Mild concentric LVH. Negative dobutamine stress echo for ischemia at 87% MPHR. Negative dobutamine stress EKG for ischemia at 87% MPHR. Pulmonary Function Test Date: 07/25/19 Spirometry prebronchodilator demonstrates mild restrictive changes. With PC was 76% of predicted. FEV1 was 82% of predicted. FEF 2575 was 106% of predicted. There has been no significant change since 2014. Impression: Mild restrictive changes secondary to obesity.
[2020-06-23] MEDS ORDERED: LR 500ML BOLUS, THEN 15ML/HR IV SCH (06:00)
[2020-06-23] MEDS ORDERED: ROPIVACAINE 0.5% HCL/PF 150 MG, BUPIVACAINE 0.5% MPF 30 ML, EPINEPHrine 0.15 MG, Ketoro... INFIL SCH (06:00)
[2020-06-23] MEDS ORDERED: TRANEXAMIC ACID 1,000 MG **IV Pre-op IV SCH (06:00)
[2020-06-23] MEDS ORDERED: CeleBREX 200 MG CAP PO SCH (06:00)
[2020-06-23] MEDS ORDERED: CEFAZOLIN 3000MG 72.5 ML IV SCH (06:00)
[2020-06-23] MEDS ORDERED: TRANEXAMIC ACID 1,000 MG **IV Intra-op IV SCH (06:00)
[2020-06-23] MEDS ORDERED: LR 60ML/HR IV SCH (06:00)
[2020-06-23] MEDS ORDERED: MIDAZOLAM HCL 1 MG/ML 2ML VIAL ONE (06:24)
[2020-06-23] MEDS ORDERED: fentaNYL citrate 100 MCG/2 ML VIAL ONE ×3 (06:24→10:57)
[2020-06-23] MEDS ORDERED: ROPIVACAINE 0.5% 5 MG/ML 30 ML VIAL ONE (06:34)
[2020-06-23] MEDS ORDERED: EPINEPHrine INJ 1 MG/ML AMP ONE (06:34)
[2020-06-23] MEDS ORDERED: BUPIVACAINE 0.5 % 5 MG/1 ML PF 10ML VIAL ONE (06:34)
--- NOTE | 2020-06-23 06:46 | History & Physical Bridge Note ---
Date of Service June 23, 2020 History & Physical Bridge Note I have examined the patient, reviewed the History & Physical and in the interval since the performance of the History & Physical I have noted the following changes of clinical significance: no changes noted Patient is aware of the risks, is asymptomatic, and tested negative for COVID- 19.
[2020-06-23] MEDS ORDERED: ORTHO JOINT ANESTHETIC ONE (06:52)
[2020-06-23] MEDS ORDERED: PROPOFOL IV EMULSION 10 MG/ML 20 ML VIAL IV ONE (07:21)
[2020-06-23] MEDS ORDERED: PHENYLEPHRINE 100MCG/ML 5ML SYR ONE (07:49)
--- NOTE | 2020-06-23 11:00 | Post Operative Brief Note ---
Immediate Post Op Note v1 Date of Surgery June 23, 2020 Pre & Post Diagnosis Operation Date: 06/23/20 07:00 Pre-Op Diagnosis: Right Knee Osteoarthritis Post-Op Diagnosis: Right Knee Osteoarthritis I identified the patient and participated in the time-out.: Yes Procedure Operation Date: 06/23/20 07:00 Actual Procedures p Right Total Knee Arthroplasty(Right) - Suraj Chavez MD Surgeon Suraj Chavez MD Cnc Lathe Programmer T MD alberto & J ADARSH Payan Estimated Blood Loss 100 Findings Consistent with Post-Op Diagnosis Fluids 1500 cc Specimens R knee contents Anesthesia Type MAC Spinal Regional Complications none
[2020-06-23] MEDS ORDERED: ePHEDrine sulfate 50 MG/ML AMP IV PRN (11:01)
[2020-06-23] MEDS ORDERED: ATROPINE SULFATE 0.1 MG/ML 10ML SYR IV PRN (11:01)
--- NOTE | 2020-06-23 11:01 | Operative Report ---
Post Operative Report Pre & Post Diagnosis Operation Date: 06/23/20 07:00 Pre-Op Diagnosis: Right Knee Osteoarthritis Post-Op Diagnosis: Right Knee Osteoarthritis I identified the patient and participated in the time-out.: Yes Procedure Operation Date: 06/23/20 07:00 Actual Procedures p Right Total Knee Arthroplasty(Right) - Suraj Chavez MD Surgeon Suraj Chavez MD Sap Data Analyst Andrea dominguez MD & Debby Payan PA-C Estimated Blood Loss 100 Findings See Below Examined Under Anesthesia: ROM -- There was 5 degrees to 95 degrees of flexion Ligamentous examination -- revealed stable Anuj, posterior drawer, varus and valgus stress at 0 and 30 degrees. [place] Type IV changes of medial compartment, Type III changes patellofemoral compartment and Lateral compartment. Fluids 1500 cc Specimens R knee Contents Anesthesia Type MAC Spinal Regional Complications none Indications This is a 59-year-old female who has clinical and radiographic findings consistent with osteoarthritis of the a right knee. I recommended that a right total knee replacement be performed. The patient understands the risks of surgery, which include but not limited to: bleeding, infection, re-operation, damage to nerves and arteries, continued knee pain, knee stiffness, DVT, and . The patient understands all of these instructions and explanations, all of his questions have been satisfactorily addressed and the patient has elected to proceed. Informed consent was signed. Description of Procedure 1. Femur: Triathlon #3 Right PS, with 2 distal pegs. 2. Tibia: Triathlon #3 [place] with 12 x 50 mm stem. 3. Insert: Triathlon #3 x 9 mm PS X3 poly. 4. Patella: Triathlon A32 x 10 mm X3 poly. 5. Simplex cement. PROCEDURE: The patient was taken to the Operating Room and placed in the supine position after spinal and adductor canal nerve block was administered. My initials and a multidisciplinary time-out were used to identify the right leg as the correct operative limb. A tourniquet was placed high in the thigh. Prior to the incision, 3 grams of intravenous Ancef were given. The right leg was then prepped and draped in a standard sterile fashion. An Esmarch was used to exsanguinate the leg and the tourniquet was inflated to 250 mmHg. The planned mid-line 20 cm incision was created exposing the extensor mechanism. The medial parapatellar arthrotomy was made and the patella was everted. The patella was addressed first. It was prepared by reaming from 23 mm down to 13 mm. An A32 button was found to fit best. The peg holes were made in the standard fashion. The femur was addressed next and the guide idania was placed intramedullary. The initial cutting block was placed with 5 degrees of valgus and removing 10 mm for the distal cut. The cut was made and the 4-in-1 cutting block for a size 3 femur was placed. These cuts and the cuts to place the box were made in the standard fashion. The distal pegs were drilled once the trial femur was placed. Our attention was then drawn to the tibia cut with the external cutting guide, taking 4 mm from the medial low side. There was sufficient extension and flexion gap to fit a 9 mm spacer. A #3 Tibial baseplate fit well. A trial with a 9 mm spacer showed excellent stability in both flexion and extension, with good ligament balance. Range of motion of 0-100 degrees. The tibial baseplate was pinned and the final preparation for the keel and stem was made. A stem was used due to avoid subsidence. All the trial components were tested again, with good stability and thumbs free tracking of the patella. All components were removed. The tourniquet was deflated. Hemostasis was obtained. 90 ml of total knee cocktail were injected into the soft tissues and periosteum. A bone plug was placed in the femur and covered with bone wax. After a 15 minute break, the limb was exsanguinated again and the tourniquet was re-inflated. All surfaces were copiously irrigated prior to placement of the components. The femoral component and Tibial baseplate were placed with the first batch of cement and a 9 mm X3 poly was placed. During the second batch of cement the patellar button was placed using Simplex cement. Again the range of motion and stability were unchanged. The extensor mechanism was closed with 1-0 and 0 Vicryl with the knee bent approximately 60 degrees in a standard fashion. The deep fascia was closed with 2-0 Vicryl. The subcutaneous layer was closed with 3-0 Vicryl. The skin was closed with Zipline and shield. The limb was cleaned and dried. 4x4 dressing was placed over top followed by ABDs, sterile Webril, and a foot to thigh Gurmeet bandage. The patient was then transferred to the Recovery Room in stable condition. The sponge and needle counts were correct. POST-OP INSTRUCTIONS: The patient will be WBAT. The patient will be admitted to the hospital. The patient will use the knee immobilizer when ambulating and standing until good quad control is achieved. Labs will be obtained during the stay. DVT prophylaxis will included aspirin for 6 weeks, TEDs, and mechanical foot pumps. The dressing will be changed prior to their discharge or postop day #2 and covered with a Silverlon dressing, whichever comes first. I attest to the content of the Intraoperative Record and any orders documented therein. Any exceptions are noted below.
[2020-06-23] MEDS ORDERED: MAGNESIUM HYDROXIDE SUSP 30 ML UDC PO PRN (11:16)
[2020-06-23] MEDS ORDERED: NALOXONE HCL 0.4 MG/1 ML VIAL/CARP IV PRN (11:16)
[2020-06-23] MEDS ORDERED: SODIUM CHLORIDE 0.65% NA SOLN 45 ML (OCEAN) NAE PRN (11:16)
[2020-06-23] MEDS ORDERED: ALUMINUM/MAGNESIUM SUSP 30 ML UDC PO PRN (11:16)
[2020-06-23] MEDS ORDERED: clonazePAM 0.25 MG TAB PO PRN (11:16)
[2020-06-23] MEDS ORDERED: bisacodyL 10 MG SUPP PR PRN (11:16)
[2020-06-23] MEDS ORDERED: METOCLOPRAMIDE HCL INJ 5 MG/ML 2 ML VIAL IV PRN (11:16)
[2020-06-23] MEDS ORDERED: HYDROmorphone INJ 2 MG/ML SYR/VIAL ONE (11:17)
[2020-06-23] MEDS: HYDROmorphone INJ 0.5 MG/0.5 ML SYR IV PRN ×2 (11:22→11:52)
[2020-06-23] MEDS ORDERED: HYDROmorphone INJ 0.5 MG/0.5 ML SYR IV PRN (11:26)
--- NOTE | 2020-06-23 11:35 | XRay Report ---
XR knee RT 1 or 2V routine CLINICAL HISTORY: Postoperative evaluation. COMPARISON: Right knee radiographs March 12, 2020. FINDINGS: Alignment of the total right knee arthroplasty is anatomic. There is no periprosthetic fra cture or unexpected radiopaque foreign body. Calcification along the medial tibial plateau is unchang ed. This is chronic. IMPRESSION: Expected findings following total right knee arthroplasty. ACT 112: Negative or not required by law. Electronically signed by: Momo Dumont M.D. 06/23/2020 11:33 AM
--- NOTE | 2020-06-23 11:57 | Anesthesiology Progress Note ---
Date of Service June 23, 2020 Anesthesia Post Procedure Vital Signs Vital Signs: Temp Pulse Pulse Resp BP BP Pulse Ox 06/23/20 11:45 67 16 130/68 98 06/23/20 11:35 72 16 121/69 100 06/23/20 11:25 64 16 128/69 100 06/23/20 11:15 80 16 123/72 98 06/23/20 11:08 36.5 C 90 16 111/70 99 06/23/20 06:06 36.4 C L 96 H 18 118/72 95 Pain Intensity Right Knee: Pain Intensity: 6 Transfer of Care Handoff Completed per policy Notes Mental Status: alert / awake / arousable Patient Amnestic to Procedure: Yes Nausea / Vomiting: adequately controlled Pain: adequately controlled Airway Patency, RR, SpO2: stable & adequate BP & HR: stable & adequate Hydration State: stable & adequate Neuraxial Anesthesia: was administered and sensory block is resolving Anesthetic Complications: no major complications apparent
[2020-06-23] MEDS: SODIUM CHLORIDE 0.9% 1000ML 1,000 ML IV SCH ×2 (13:07→21:48)
[2020-06-23] MEDS: ACETAMINOPHEN 500 MG TAB PO SCH ×2 (13:40→21:12)
[2020-06-23] MEDS: OXYCODONE HCL IR 5 MG TAB (IMMEDIATE RELEASE) PO PRN ×3 (13:41→23:35)
[2020-06-23] MEDS: HYDROmorphone INJ 1 MG/ML SYRINGE IV PRN ×2 (15:56→21:10)
[2020-06-23] MEDS: Scopolamine CHECK PATCH PLACEMENT SCH ×2 (15:56→23:45)
[2020-06-23] MEDS: CEFAZOLIN 2000MG 2,000 MG/15 ML SYR IV SCH ×2 (15:56→23:35)
--- NOTE | 2020-06-23 16:18 | Orthopedic Progress Note ---
Date of Service June 23, 2020 Assessment & Plan (1) Osteoarthritis of right knee: POD #0 s/p right TKA, with decreased sensation right foot, likely secondarily to continued block, patient also has a history of lumbar stenosis. Resume diet. WBAT with walker; and in immobilizer for 48 hours or until demonstrates good quad control. Only requires the immobilizer when ambulating and transfers for the next 48 hours OOB to chair. Continue pain control. Check labs tomorrow. DVT prophylaxis: TEDs 3 weeks, foot pumps while in hospital, ASA 81 mg BID for 6 weeks. PT/OT. Change dressing to Silverlon POD #2 or prior to discharge whichever comes first. D/C planning. Present on Admission?: Yes Admission and Anticipated Discharge Date Admission Date: June 23, 2020 Subjective Right knee pain, weakness right foot Review of Systems Review of Systems: All systems reviewed & are unremarkable except as noted in HPI & below Physical Exam Physical Exam: RLE: Dressing clean, dry, intact. wiggling toes and ankle. BCR < 2 seconds. Slight decreased sensation right foot compared to the left. Calf soft and non tender. Able to preform limited straight leg raise. Results & Data ([facility]) Vital Signs (Past 12 Hours) Vital Signs Temp Pulse Pulse Resp BP BP Pulse Ox 06/23/20 15:15 80 16 125/70 96 06/23/20 14:22 36.4 C L 81 18 115/72 99 06/23/20 13:15 73 18 104/68 95 06/23/20 12:45 36.4 C L 76 16 127/69 96 06/23/20 12:15 36.4 C L 72 16 117/69 98 06/23/20 12:05 36.6 C 77 16 124/68 99 06/23/20 11:55 36.6 C 77 16 113/90 99 06/23/20 11:45 67 16 130/68 98 06/23/20 11:35 72 16 121/69 100 06/23/20 11:25 64 16 128/69 100 06/23/20 11:15 80 16 123/72 98 06/23/20 11:08 36.5 C 90 16 111/70 99 06/23/20 06:06 36.4 C L 96 H 18 118/72 95 Diagnostic Findings I reviewed AP & Lateral Right knee which shows will placed and cemented components following R TKA.
[2020-06-23] MEDS: FERROUS GLUCONATE 324 MG TAB PO SCH (17:46)
[2020-06-23] MEDS: ASCORBIC ACID 500 MG TAB PO SCH (17:46)
[2020-06-23] MEDS ORDERED: COUGH DROP (SUGAR FREE) LOZ 24 LOZ/1 BOX BUCCAL ONE (20:27)
[2020-06-23] MEDS: DOCUSATE SODIUM 100 MG CAP PO SCH (21:11)
[2020-06-23] MEDS: SENNA 8.6 MG TAB PO SCH (21:11)
[2020-06-23] MEDS: ONDANSETRON INJ 2 MG/ML 2 ML VIAL IV PRN (22:09)
[2020-06-24] MEDS: HYDROmorphone INJ 1 MG/ML SYRINGE IV PRN ×4 (02:17→20:00)
[2020-06-24] MEDS: OXYCODONE HCL IR 5 MG TAB (IMMEDIATE RELEASE) PO PRN ×4 (05:59→22:18)
[2020-06-24] MEDS: ACETAMINOPHEN 500 MG TAB PO SCH ×3 (06:00→22:17)
[2020-06-24] MEDS: LEVOTHYROXINE SODIUM 50 MCG TABLET PO SCH (06:02)
[2020-06-24 06:08] LABS: Hematocrit (blood only) 30.4 % (37-47); Hemoglobin 10.1 g/dL (12.0-16.0); Mean Corpuscular Hemoglobin 28.1 pg (25-34); Mean Corpuscular Hgb Conc 33.2 g/dL (32-36); Mean Corpuscular Volume 84.4 fL (80-100); Mean Platelet Volume 9.7 fL (7.4-10.4); Platelet Count 191 K/uL (130-400); RDW Standard Deviation 42.9 fL (36.4-46.3); White Blood Count 6.97 K/uL (4.8-10.8)
[2020-06-24 06:48] LABS: BUN Creatinine Ratio 14.3 (10-20); Calcium 8.5 mg/dl (8.5-10.1); Creatinine Clr Calc Pharmacy 99.5 ml/min; Est GFR (African American) 103.5; Est GFR (Non-African American) 89.3; Potassium 4.1 mmol/L (3.5-5.1)
[2020-06-24] MEDS: MAGNESIUM OXIDE 400 MG TAB PO SCH (09:07)
[2020-06-24] MEDS: FERROUS GLUCONATE 324 MG TAB PO SCH ×2 (09:07→17:50)
[2020-06-24] MEDS: DOCUSATE SODIUM 100 MG CAP PO SCH ×2 (09:07→22:17)
[2020-06-24] MEDS: Scopolamine CHECK PATCH PLACEMENT SCH ×2 (09:08→15:31)
[2020-06-24] MEDS: LORATADINE 10 MG TAB PO SCH (09:08)
[2020-06-24] MEDS: MULTIVITAMIN TAB PO SCH (09:08)
[2020-06-24] MEDS: ASPIRIN 81 MG ECTAB PO SCH ×2 (09:08→22:17)
[2020-06-24] MEDS: CHOLECALCIFEROL 1,000 UNITS 25 MCG TAB PO SCH (09:08)
[2020-06-24] MEDS: VITAMIN B COMPLEX TAB PO SCH (09:08)
[2020-06-24] MEDS: ASCORBIC ACID 500 MG TAB PO SCH ×2 (09:08→17:50)
--- NOTE | 2020-06-24 10:32 | Orthopedic Progress Note ---
Date of Service June 24, 2020 Assessment & Plan (1) Osteoarthritis of right knee: POD #1 s/p right TKA, with return of normal sensation to her right foot. Right ankle pain, improved following removal of the bandage. Still has not completed stairs and is receiving IV pain medicine. Will keep overnight and reassess tomorrow. Resume diet. WBAT with walker; and in immobilizer for 48 hours or until demonstrates good quad control. Only requires the immobilizer when ambulating and transfers for the next 48 hours OOB to chair. Continue pain control. Check labs tomorrow. DVT prophylaxis: TEDs 3 weeks, foot pumps while in hospital, ASA 81 mg BID for 6 weeks. PT/OT. Change dressing to Silverlon. D/C planning. Admission and Anticipated Discharge Date Admission Date: June 23, 2020 Subjective Complaining of right ankle pain Review of Systems Review of Systems: All systems reviewed & are unremarkable except as noted in HPI & below Physical Exam Physical Exam: RLE: Dressing removed, incision is clean, dry, intact. BCR < 2 sec. Sensation to light touch intact. Wiggling toes and ankle. Ankle pain much improved following removal of the dressing and Gurmeet bandage. Results & Data ([facility]) Vital Signs (Past 12 Hours) Vital Signs Temp Pulse Resp BP Pulse Ox 06/24/20 07:17 36.9 C 86 16 101/55 L 97 06/24/20 03:40 36.7 C 76 18 92/48 L 98 06/23/20 23:15 36.6 C 78 20 103/61 96 Laboratory Results 06/24/20 06/24/20 06/23/20 Range/Units 05:29 05:29 06:04 WBC 6.97 (4.8-10.8) K/uL RBC 3.60 L (4.2-5.4) M/uL Hgb 10.1 L (12.0-16.0) g/dL Hct 30.4 L (37-47) % MCV 84.4 (80-100) fL MCH 28.1 (25-34) pg MCHC 33.2 (32-36) g/dL RDW Std Deviation 42.9 (36.4-46.3) fL RDW Coeff of Dilshad 14.0 (11.5-14.5) % Plt Count 191 (130-400) K/uL MPV 9.7 (7.4-10.4) fL Sodium 139 (136-145) mmol/L Potassium 4.1 (3.5-5.1) mmol/L Chloride 106 (98-107) mmol/L Carbon Dioxide 29 (21-32) mmol/L Anion Gap 4.0 (3-11) BUN 11 (7-18) mg/dl Creatinine 0.74 (0.6-1.2) mg/dl Est Cr Clr Drug Dosing 99.5 ml/min Est GFR ( Amer) 103.5 Est GFR (Non-Af Amer) 89.3 BUN/Creatinine Ratio 14.3 (10-20) Glucose 111 H (70-99) mg/dl Calcium 8.5 (8.5-10.1) mg/dl Hepatitis C Ab Screen Neg (Neg)
[2020-06-24] MEDS: ONDANSETRON INJ 2 MG/ML 2 ML VIAL IV PRN (20:00)
[2020-06-24] MEDS: SENNA 8.6 MG TAB PO SCH (22:17)
[2020-06-25] MEDS: HYDROmorphone INJ 1 MG/ML SYRINGE IV PRN ×5 (00:39→20:22)
[2020-06-25] MEDS: Scopolamine CHECK PATCH PLACEMENT SCH ×3 (00:40→15:28)
[2020-06-25] MEDS: ACETAMINOPHEN 500 MG TAB PO SCH ×3 (06:10→22:09)
[2020-06-25] MEDS ORDERED: LEVOTHYROXINE SODIUM 75 MCG TABLET PO SCH (06:30)
[2020-06-25] MEDS: OXYCODONE HCL IR 5 MG TAB (IMMEDIATE RELEASE) PO PRN ×3 (08:24→17:57)
[2020-06-25] MEDS: MULTIVITAMIN TAB PO SCH (08:41)
[2020-06-25] MEDS: ASCORBIC ACID 500 MG TAB PO SCH ×2 (08:41→17:25)
[2020-06-25] MEDS: DOCUSATE SODIUM 100 MG CAP PO SCH ×2 (08:41→20:27)
[2020-06-25] MEDS: ASPIRIN 81 MG ECTAB PO SCH ×2 (08:41→20:27)
[2020-06-25] MEDS: FERROUS GLUCONATE 324 MG TAB PO SCH ×2 (08:41→17:25)
[2020-06-25] MEDS: VITAMIN B COMPLEX TAB PO SCH (08:41)
[2020-06-25] MEDS: LORATADINE 10 MG TAB PO SCH (08:41)
[2020-06-25] MEDS: CHOLECALCIFEROL 1,000 UNITS 25 MCG TAB PO SCH (08:41)
[2020-06-25] MEDS: MAGNESIUM OXIDE 400 MG TAB PO SCH (08:41)
--- NOTE | 2020-06-25 12:13 | Orthopedic Progress Note ---
Date of Service June 25, 2020 Assessment & Plan (1) Osteoarthritis of right knee: POD 2 s/p right TKA Continue regular diet. WBAT with walker; D/C knee immobilizer PT/OT to continue to work on steps with plans to do stairs later today and in am. Continue pain control. Recommend pt try only PO pain meds after today. Ice as needed. DVT prophylaxis: TEDs 3 weeks (spoke to nursing about larger size to be put on) foot pumps while in hospital, ASA 81 mg BID for 6 weeks. D/C planning. HHPT. Plan to D/C tomorrow as she requires continued pain control and PT to work on steps over next 24hrs. I, Dr. Chavez, saw and examined the patient and discussed the management with my PA. I reviewed my PAs note and agree with the documented findings and the plan of care I developed. Admission and Anticipated Discharge Date Admission Date: June 23, 2020 Subjective Patient in bed resting. Just received dose of IV pain meds due to increased pain after PT session. Says she did a few steps with the "step up stool". Denies F/C/S, CP, SOB, N/V, B/B issues, N/T/R into leg, calf pain. She doesn't feel ready to go home today. Review of Systems Review of Systems: All systems reviewed & are unremarkable except as noted in HPI & below Physical Exam Physical Exam: In bed. Right knee silverlon dressing intact. Knee has minimal bruising. No redness or warmth. 1 + effusion. 0-50 degrees motion in bed. NV intact with neg homans, 5/5 ehl, TA, and gastroc strength. B calves soft. Palpable DP and PT pulses. Sensation intact to light touch. Results & Data ([facility]) Vital Signs (Past 12 Hours) Vital Signs Temp Pulse Resp BP Pulse Ox 06/25/20 07:58 36.9 C 91 H 16 103/61 93
[2020-06-25] MEDS: SENNA 8.6 MG TAB PO SCH (20:09)
[2020-06-26] MEDS: Scopolamine CHECK PATCH PLACEMENT SCH
[2020-06-26] MEDS: OXYCODONE HCL IR 5 MG TAB (IMMEDIATE RELEASE) PO PRN ×3 (00:02→10:10)
[2020-06-26] MEDS: ACETAMINOPHEN 500 MG TAB PO SCH (05:53)
[2020-06-26] MEDS: LEVOTHYROXINE SODIUM 50 MCG TABLET PO SCH (05:54)
[2020-06-26] MEDS: MAGNESIUM OXIDE 400 MG TAB PO SCH (08:45)
[2020-06-26] MEDS: LORATADINE 10 MG TAB PO SCH (08:45)
[2020-06-26] MEDS: ASCORBIC ACID 500 MG TAB PO SCH (08:45)
[2020-06-26] MEDS: VITAMIN B COMPLEX TAB PO SCH (08:45)
[2020-06-26] MEDS: DOCUSATE SODIUM 100 MG CAP PO SCH (08:45)
[2020-06-26] MEDS: CHOLECALCIFEROL 1,000 UNITS 25 MCG TAB PO SCH (08:45)
[2020-06-26] MEDS: FERROUS GLUCONATE 324 MG TAB PO SCH (08:45)
[2020-06-26] MEDS: ASPIRIN 81 MG ECTAB PO SCH (08:45)
[2020-06-26] MEDS: MULTIVITAMIN TAB PO SCH (08:45)
--- NOTE | 2020-06-26 12:12 | Orthopedic Progress Note ---
Date of Service June 26, 2020 Assessment & Plan (1) Osteoarthritis of right knee: POD 3 s/p right TKA Continue regular diet. WBAT with walker PT/OT Continue pain control. Ice as needed. DVT prophylaxis: TEDs 3 weeks (spoke to nursing about larger size to be put on) foot pumps while in hospital, ASA 81 mg BID for 6 weeks. D/C planning. HHPT. D/C home later today. Admission and Anticipated Discharge Date Admission Date: June 25, 2020 Subjective Continued right knee pain, but controlled with oral pain meds. Review of Systems Review of Systems: All systems reviewed & are unremarkable except as noted in HPI & below Physical Exam Physical Exam: RLE: Dressing is clean, dry, intact. BCR < 2 sec. Sensation to light touch intact. Wiggling toes and ankle. Was working with PT on active range of motion and had reached 85 degrees today. Results & Data ([facility]) Vital Signs (Past 12 Hours) Vital Signs Temp Pulse Resp BP BP Pulse Ox 06/26/20 10:45 37.4 C 98 H 18 115/72 106/57 L 92 06/26/20 08:00 37.4 C 100 H 18 106/57 L 92
--- NOTE | 2020-06-26 13:42 | Discharge Summary ---
Date of Service June 26, 2020 Principal Diagnosis Right knee osteoarthritis Discharge Data Allergies Allergy/AdvReac Type Severity Reaction Status Date / Time hydroxyzine Allergy Intermediate HYPERACTIVE Verified 06/23/20 05:54 levofloxacin Allergy Mild RASH Verified 06/23/20 05:54 Quinolones Allergy Mild RASH Verified 06/23/20 05:54 wheat Allergy Mild GI Verified 06/23/20 05:54 SENSITIVITY diphenhydramine AdvReac Intermediate "KEEPS ME Verified 06/23/20 05:54 AWAKE INSTEAD OF MAKING ME SLEEPY" prednisone AdvReac Intermediate PSYCHOTIC Verified 06/23/20 05:54 COMPLICATIONS tramadol AdvReac Intermediate "OUT OF Verified 06/23/20 05:54 BODY" Sulfa (Sulfonamide AdvReac Mild GI UPSET Verified 06/23/20 05:54 Antibiotics) Consultations 06/23/20 11:16 Consult Case Management - Discharge Planning Routine Procedures Performed Operation Date: 06/23/20 07:00 Actual Procedures p Right Total Knee Arthroplasty(Right) - Suraj Kofi Chavez MD Ordered Studies 06/23/20 05:00 US - OR guided needle placemen Routine Hospital Course (1) Osteoarthritis of right knee: 59 yr old female underwent R TKR by Dr Chavez on 06-23-20. Tolerated spinal anesthesia with femoral n block. No complications. Admitted to floor post-op. She tolerated regular PO diet. She tolerated PO fluids. Labs POD 1 were WNL. Vitals stable throughout hospital stay. She initially had some numbness of her right foot but with removal of post-op dressings this improved. Silverlon dressing applied on POD 1. It has remained clean and dry. It was reinforced on POD 3 with tegaderm due to peeling. DVT prophlaxis has consisted of ASA 81mg bid, teds, and foot pumps. However teds have been uncomfortable for patient due to body habitus. Pain control with needing IV pain meds and inability to do steps with therapy prolonged her hospital stay. Knee immobilizer DCd on POD 2 with patient having good quad control with ambulating. By POD #3, she was able to do steps with therapy and weaned off IV pain meds tolerated only PO oxycodone. She was deemed stable to discharge to home with her and home health therapy. She will continue with walker, wbat. Silverlon dressing to remain on, clean, and dry. She can shower but not submerge. Was given an extra tegaderm to reinforce if needed. DVT prophylaxis to consist of teds x 3wks and asa 81mg bid x 6wks. Scripts for oxycodone, tylenol, ASA, Vitamin C, and Iron sent to her pharmacy. She is scheduled for f/u appointment with our office 2wks post-op for wound check/zip line removal and hopes to progress to outpt PT. She was advised to call our office or go to ER with any questions or concerns. Please see below discharge plan for more in-depth details. Total Time Total Time Spent Total Time Spent (In Minutes): 20 Discharge Plan Discharge Items Patient Disposition: Home - Home Health Services Reason For Visit: Right Knee Osteoarthritis Discharge Diagnosis: Right knee osteoarthritis Activity: Per Instructions section Non-emergency contact: Surgeon Call non-emergency contact if: your pain is not controlled, your temperature is above 101.5 and your wound has increased drainage Follow-up/Referrals: Suraj Chavez MD [Physician] - 07/06/20 1:00 pm (with Holly Payan PA-C) Anali Mathias CRNP [Primary Care Provider] - Diet: Regular Addtl Attending Provider Instructions: Post-operative Instructions Pain Expect to be in a fair amount of pain after surgery. Remember, our goal is not to eliminate your pain, but to make it tolerable. It is a good idea to stay ahe ad of your pain by taking the medications you were prescribed once you get home. Typically, the pain starts improving 3-7 days after surgery. You should start weaning off the narcotic pain medication (oxycodone) as soon as your pain improves. Please call our office if your pain is not adequately controlled. You can take tylenol 1000mg every 8hrs for mild to moderate pain. Ice Ice your operative site at least 5 times a day for 15-30 minutes at a time. Make sure you have a thin cloth between the ice or cooling unit and your skin to prevent culp bite. This is especially important if you received a nerve block. Continue icing your operative site for the first 5-7 days after surgery, then as needed. Diet/Nausea/Vomiting Start by drinking clear liquids and eating crackers. If you can tolerate this, then you may resume your normal diet. If you feel nauseated or vomit, take Zofran/ondansetron (if prescribed). Please call our office if you have intractable nausea or vomiting, or, if after hours, you may go to the Emergency Room for help. Constipation Constipation is a common side effect of narcotic pain medication. If you have not had a bowel movement within 2 days after surgery, we recommend purchasing an over the counter laxative such as Milk of Magnesia, Dulcolax, or Miralax from a local pharmacy, and taking it as instructed. Call our clinic if any questions. Weight bearing and Range of Motion. Weightbearing as tolerated with walker. No restrictions with range of motion. *KNEE IMMOBILIZER x 48hrs AFTER SURGERY WHILE AMBULATING AND THEN CAN STOP (CONTINUE IF YOU DO NOT HAVE GOOD QUAD CONTROL)* Physical therapy Initially you will start with home health physical therapy. At our first visit with at our office we will provide you with script for outpatient physical therapy. Wound care and showering We will inspect your wound at your first post-operative visit, and may do a dressing change at that time. Most patients will be in a water-proof dressing that is removed 14 days after surgery. It is normal to see some dried blood on the dressing. Do not remove your dressing, paper strips or sutures yourself unless you are given permission. Showering is allowed the day after surgery. Do not scrub or remove any dressings. The wound should not be submerged underwater (i.e. in a bathtub or pool) until 4 weeks after surgery ISAURO stockings If you were given white stockings, these are to be worn at all times except to shower and sleep (on both legs) for the first 2 weeks after surgery. We will discuss removal at your first follow-up appointment. Driving You may not drive while taking narcotic pain medication. We will discuss return to driving at your first follow-up appointment. Return To Work Your return to work depends on what surgery was done and what type of work you do. Please bring any paperwork your employer needs completed to your first post-operative visit. Also, bring a description of your job duties, as this helps us to understand what risks you may face at work. Travel Avoid long distance travel (greater than 1 hour) in airplanes and cars for the first 6 weeks after surgery if possible. If you must travel, please let us know so we can discuss additional measures to prevent blood clots. Follow-up You should have a follow-up appointment already scheduled for 2 weeks after surgery. If not, please contact our office to make this appointment before you leave the hospital. When to call the office [phone] It is normal to have swelling and bruising in the limb that was operated on. This will improve with time. It is also normal to have fevers for the first 2 days after surgery. Reasons you should call your doctor include: Uncontrolled pain; Nausea, vomiting, or constipation that does not improve with medication; Fevers over 101.5, chills, sweats; Drainage or bleeding from the wound; Foul odor; Spreading areas of redness; Any other concerns. NEW MEDICATIONS: new medications will be sent to your pharmacy: oxycodone, iron, vit c, tylenol, aspirin. Pending Studies at Discharge: No Stand-Alone Forms: [facility], Opioid Pain Management, Smoking Cessation Medications and DC Order Prescriptions: New aspirin 81 mg Tablet,Delayed Release (Dr/Ec) 81 mg PO BID 42 Days Qty: 84 RF: 0 acetaminophen 500 mg Tablet 1,000 mg PO Q8 PRN (Reason: pain) Qty: 60 RF: 0 ascorbic acid (vitamin C) [Vitamin C] 500 mg Tablet 500 mg PO BIDM 14 Days Qty: 28 RF: 0 oxycodone 5 mg Tablet 5 - 10 mg PO Q4H PRN (Reason: pain) Qty: 30 RF: 0 ferrous gluconate 324 mg (38 mg iron) Tablet 324 mg PO BIDM 14 Days Qty: 28 RF: 0 Continued cholecalciferol (vitamin D3) [Vitamin D3] 25 mcg (1,000 unit) capsule 2,000 units PO QAM RF: 0 magnesium 250 mg tablet 400 mg PO DAILY RF: 0 cinnamon bark [Cinnamon] 500 mg capsule 1,000 mg PO QAM RF: 0 clonazepam 0.5 mg Tablet 0.25 mg PO HS PRN (Reason: Anxiety) RF: 0 vitamin B complex Capsule 1 cap PO QAM RF: 0 sodium chloride [Saline Nasal] 0.65 % Aerosol,[place] 1 spray INTRANASAL Q3H PRN (Reason: Runny Nose) RF: 0 loratadine 10 mg Capsule 10 mg PO QAM RF: 0 levothyroxine 50 mcg tablet 50 mcg PO UD RF: 0 Krill Oil ([place] 3 and 6) 1,500-165-67.5 mg Capsule 2 cap PO HS RF: 0 Cbd Oil 250 mg PO DAILY PRN (Reason: Pain) RF: 0 Discontinued acetaminophen [Tylenol Extra Strength] 500 mg Tablet 1,000 mg PO BID RF: 0 Discharge Orders: Discharge Order (Routine); Ordered 06/26/20 Ordered By: Paris Prasad/Other Patient Handouts: Preventing Deep Vein Thrombosis, ED [facility] Admission Data Admit Date/Time: 06/25/20 13:11 Attending Provider: Suraj Chavez Admit Provider: Suraj Chavez Primary Care Provider: Anali Mathias Other Providers: [facility],Home Healthcare Other Interventions: Discharge Summary Assessment (RN) Last Done: 06/26/20 10:45
== END 2020-06-26 11:38 | disposition home health service (06) ==
LOC: 3E 05:18 → ASU 05:18

== ENCOUNTER 2021-04-06 07:39 | Observation (INO) ==
--- NOTE | 2021-03-11 14:06 | PAT Medication Instructions ---
Medication Instructions Date of Service March 11, 2021 Home Medications Medication Instructions Recorded acetaminophen 1,000 mg PO Q8 PRN #60 tab 06/26/20 clonazepam 0.25 mg PO HS PRN loratadine 10 mg PO QAM sodium chloride [Saline Nasal] 1 spray INTRANASAL Q3H PRN vitamin B complex 1 cap PO QAM Krill Oil ([place] 3 and 6) 1 cap PO QAM levothyroxine 50 mcg tablet 50 mcg PO UD cholecalciferol (vitamin D3) 25 mcg (1,000 unit) capsule 2,000 units PO QAM acetaminophen 1,000 mg PO Q8 PRN celecoxib [Celebrex] 100 mg PO DAILY PRN ASK your surgeon for instructions celecoxib [Celebrex] 100 mg PO DAILY PRN STOP taking 2 weeks before surgery (or as soon as possible if surgery is within 2 weeks) Krill Oil ([place] 3 and 6) 1 cap PO QAM DO NOT take the morning of surgery loratadine 10 mg PO QAM vitamin B complex 1 cap PO QAM cholecalciferol (vitamin D3) 25 mcg (1,000 unit) capsule 2,000 units PO QAM Take morning of surgery With a small sip of water, OTHERWISE NOTHING TO EAT OR DRINK AFTER MIDNIGHT: sodium chloride [Saline Nasal] 1 spray INTRANASAL Q3H PRN (if needed) levothyroxine 50 mcg tablet 50 mcg PO UD acetaminophen 1,000 mg PO Q8 PRN (okay to take up to 4 hours prior to surgery if needed) Take evening before surgery clonazepam 0.25 mg PO HS PRN (if needed) sodium chloride [Saline Nasal] 1 spray INTRANASAL Q3H PRN (if needed) acetaminophen 1,000 mg PO Q8 PRN (if needed) Other Notes If you have any questions please call us at [phone] or [phone] or [phone] or [phone]
--- NOTE | 2021-03-15 16:00 | Anesthesiology Consultation ---
Date of Service March 15, 2021 Assessment & Plan (1) Encounter for pre-operative examination: COVID Status: As of 03/15 assessment, patient denies travel to endemic area, known exposure/sick contacts, or symptoms of COVID19. Patient advised to adhere to social distancing guidelines, wear a mask in public and avoid large crowds or unnecessary travel in the 2 weeks leading up to surgery. Preoperative COVID19 testing to be completed prior to surgery per surgeon's arrangements (04/02 per pt). Patient encouraged to be extra cautious/conscientious with COVID precautions between COVID testing and surgery. Chart Review Chart Review: Acceptable Risk for Surgery (pending surgeon-ordered clearance) and Patient seen in Pre Admission Testing Teaching & Discussion Instructed NPO after midnight before surgery, except medications with 15 cc of water. Medication instructions provided according to the PAT guidelines. History Surgery Operation Date: 04/06/21 07:00 Proposed Procedures p Left Total Knee Arthroplasty - Suraj Kofi Chavez MD Height/Weight Height: 5 ft 1 in Weight: 123.3 kg Allergies Allergy/AdvReac Type Severity Reaction Status Date / Time hydroxyzine Allergy Intermediate HYPERACTIVE Verified 03/08/21 14:19 levofloxacin Allergy Mild RASH Verified 03/08/21 14:19 Quinolones Allergy Mild RASH Verified 03/08/21 14:19 wheat Allergy Mild GI Verified 03/08/21 14:19 SENSITIVITY diphenhydramine AdvReac Intermediate "KEEPS ME Verified 03/08/21 14:19 AWAKE INSTEAD OF MAKING ME SLEEPY" prednisone AdvReac Intermediate PSYCHOTIC Verified 03/08/21 14:19 COMPLICATIONS tramadol AdvReac Intermediate "OUT OF Verified 03/08/21 14:19 BODY" Sulfa (Sulfonamide AdvReac Mild GI UPSET Verified 03/08/21 14:19 Antibiotics) Medications Home Medications Medication Instructions Recorded Confirmed Last Taken clonazepam 0.25 mg PO HS PRN 07/17/18 03/08/21 06/22/20 21:00 loratadine 10 mg PO QAM 07/17/18 03/08/21 06/22/20 06:00 sodium chloride [Saline Nasal] 1 spray INTRANASAL Q3H PRN 07/17/18 03/08/21 U nknown vitamin B complex 1 cap PO QAM 07/17/18 03/08/21 06/22/20 06:00 Krill Oil ([place] 3 and 6) 1 cap PO QAM 08/30/18 03/08/21 05/26/20 levothyroxine 50 mcg tablet 50 mcg PO UD tab 07/25/19 03/08/21 06/23/20 04:00 cholecalciferol (vitamin D3) 25 2,000 units PO QAM cap 06/01/20 03/08/21 06:00 mcg (1,000 unit) capsule acetaminophen 1,000 mg PO Q8 PRN #60 tab 06/26/20 03/08/21 Unknown celecoxib [Celebrex] 100 mg PO DAILY PRN 03/08/21 03/08/21 Unknown Past Medical History Medical History Anxiety Hx of sarcoidosis NO RECENT ISSUES. SINGLE FLARE 2012. Hypothyroidism Morbid obesity Osteoarthritis Spinal stenosis Exercise / Class Metabolic Activity II 4-5 Yardwork/Stairs/Walk up hill (Pt denies cp or SOB with 1 FOS, doing daily at home, just slow 2/2 knee pain) Past Family History Family History Brother Diabetes Colorectal cancer Mother Diabetes Stomach cancer Sarcoidosis Lymphoma Father Coronary heart disease Past Surgical History Surgical History H/O bilateral salpingo-oophorectomy History of appendectomy History of bilateral tubal ligation History of breast biopsy R BREAST-BENIGN History of bronchoscopy TO DX SARCODOSIS 2013 History of carpal tunnel release RT/LEFT History of section X4 History of colonoscopy History of esophagogastroduodenoscopy (EGD) History of myringotomy History of right knee joint replacement S/P cervical spinal fusion GOOD ROM S/P lumbar spinal fusion S/P partial hysterectomy [place] teeth removed Past Anesthesia History No Hx of Anesthesia Complications and No Family Hx of Anesthesia Complications History of PONV No Hx of PONV and No Hx of Motion Sickness Social History Smoking Status: Never smoker Do You Dip or Chew Tobacco: No Hx Alcohol Use: No Hx Substance Use: No substance use type: does not use Review of Systems Pt denies any recent chest pain, shortness of breath, palpitations, cough, fever, URI, or uncontrolled acid reflux. +joint pain Physical Exam Vital Signs BP: 125/72 --attempted on upper arm but cuff blew (arm too thick). Used forearm for BP P: 87bpm SPO2: 97% RA T: 98.7 F R: 16 Constitutional + morbidly obese ENMT Mouth: + dental restorations (few crowns); no chipped teeth and no loose teeth Thyromental Distance: > or= 3.5 Finger Breadths Mallampati Class: II Neck neck extension not limited Respiratory normal respiratory effort, lungs clear to auscultation Cardiovascular RRR, no murmur, no edema Testing Laboratory Results 03/15/21 16:20 03/15/21 16:20 PT 10.0 Seconds (9.0-12.0) 03/15/21 16:20 INR 1.0 (0.9-1.1) 03/15/21 16:20 APTT 28.5 Seconds (21.0-31.0) 03/15/21 16:20 Hemoglobin A1c 5.4 % (4.5-5.6) 03/15/21 16:20 Blood Type O Positive 03/15/21 16:20 Antibody Screen NEGATIVE 03/15/21 16:20 Electrocardiogram Date: 03/15/21 Findings: + NSR @ (73bpm)
[2021-03-15 17:04] LABS: Basophils # (auto) 0.02 K/uL (0-0.2); Basophils % (auto) 0.3 %; Eosinophils # (auto) 0.21 K/uL (0-0.5); Eosinophils % (auto) 3.7 %; Hematocrit (blood only) 37.7 % (37-47); Immature Granulocytes # (auto) 0.01 K/uL (0.00-0.02); Immature Granulocytes % (auto) 0.2 %; Lymphocytes # (auto) 2.05 K/uL (1.2-3.4); Lymphocytes % (auto) 35.8 %; Mean Corpuscular Hemoglobin 29.3 pg (25-34); Mean Corpuscular Hgb Conc 34.5 g/dL (32-36); Mean Corpuscular Volume 85.1 fL (80-100); Mean Platelet Volume 9.6 fL (7.4-10.4); Monocytes % (auto) 5.2 %; Neutrophils # (auto) 3.13 K/uL (1.4-6.5); Neutrophils % (auto) 54.8 %; Platelet Count 238 K/uL (130-400); RDW Coefficient of Variation 14.3 % (11.5-14.5); RDW Standard Deviation 44.2 fL (36.4-46.3); Red Blood Count 4.43 M/uL (4.2-5.4); White Blood Count 5.72 K/uL (4.8-10.8)
[2021-03-15 17:17] LABS: Partial Thromboplastin Ratio 1.1; Partial Thromboplastin Time 28.5 Seconds (21.0-31.0)
[2021-03-15 18:09] LABS: Albumin Level 3.6 gm/dl (3.4-5.0); BUN Creatinine Ratio 18.7 (10-20); Calcium 8.9 mg/dl (8.5-10.1); Creatinine Clr Calc Pharmacy 109.7 ml/min; Est GFR (Non-African American) 95.7 ml/min; Potassium 3.8 mmol/L (3.5-5.1)
[2021-03-15 18:20] LABS: Bilirubin Direct 0.1 mg/dl (0-0.2); Bilirubin,Total 0.7 mg/dl (0.2-1)
[2021-03-16 06:53] LABS: Estimated Average Glucose 108 mg/dl; Hemoglobin A1C 5.4 % (4.5-5.6)
--- NOTE | 2021-03-16 13:11 | Electrocardiogram Report ---
Test Reason : Blood Pressure : / mmHG Vent. Rate : 073 BPM Atrial Rate : 073 BPM P-R Int : 172 ms QRS Dur : 082 ms QT Int : 396 ms P-R-T Axes : 059 084 054 degrees QTc Int : 436 ms Normal sinus rhythm Normal ECG When compared with ECG of 30-AUG-2018 08:21, Nonspecific T wave abnormality no longer evident in Inferior leads Confirmed by Robert Ward ([id number]) on 03/16/2021 1:11:19 PM Referred By: Suraj Chavez Confirmed By:Robert Ward
[~2021-04-06 07:39] MED LIST changes: +BUPIVACAINE 0.25% 30 ML VIAL ONE; +BUPIVACAINE 0.5 % 5 MG/1 ML PF 10ML VIAL ONE; -CHOL2000 PO; -CLR10 PO; +CeleBREX 200 MG CAP PO SCH; -DPH/ PO; +EPINEPHrine INJ 1 MG/ML AMP ONE; -IBUP-1050 PO; -KLN5X PO; -LEVO50TA6 PO; +LR 500ML BOLUS, THEN 15ML/HR IV SCH; +LR 60ML/HR IV SCH; -OMEG10007 PO; +ROPIVACAINE 0.5% HCL/PF 150 MG, BUPIVACAINE 0.75% MPF 20 ML, EPINEPHrine 0.15 MG, Ketor... INFIL SCH; -SALI0.6510 NAE; -SYN75 PO; +Scopolamine 1 MG TDSY TD SCH; +TRANEXAMIC ACID / 0.7% NACL 1,000 MG/100 ML BAG IV SCH; +TRANEXAMIC ACID 1,000 MG **IV Intra-op IV SCH; -VITBC PO
[2021-04-06] MEDS ORDERED: MIDAZOLAM HCL 1 MG/ML 2ML VIAL ONE ×2 (08:13→11:02)
[2021-04-06] MEDS ORDERED: LIDOCAINE 2% 2 ML VIAL/AMP(20MG/ML) INFIL ONE (08:14)
[2021-04-06] MEDS ORDERED: fentaNYL citrate 100 MCG/2 ML VIAL ONE ×2 (08:14→13:30)
[2021-04-06] MEDS ORDERED: ONDANSETRON INJ 2 MG/ML 2 ML VIAL ONE (08:15)
[2021-04-06] MEDS ORDERED: PROPOFOL IV EMULSION 10 MG/ML 20 ML VIAL IV ONE ×5 (08:15→12:58)
[2021-04-06] MEDS ORDERED: ONDANSETRON INJ 2 MG/ML 2 ML VIAL IV PRN (08:38)
[2021-04-06] MEDS ORDERED: ATROPINE SULFATE 0.1 MG/ML 10ML SYR IV PRN (08:38)
[2021-04-06] MEDS ORDERED: ePHEDrine sulfate 50 MG/ML AMP IV PRN (08:38)
[2021-04-06] MEDS ORDERED: HYDROmorphone INJ 2 MG/ML SYR/VIAL IV PRN (08:38)
[2021-04-06] MEDS ORDERED: fentaNYL citrate 100 MCG/2 ML VIAL IV PRN (08:38)
--- NOTE | 2021-04-06 10:08 | History & Physical Bridge Note ---
Date of Service April 06, 2021 History & Physical Bridge Note I have examined the patient, reviewed the History & Physical and in the interval since the performance of the History & Physical I have noted the following changes of clinical significance: no changes noted Patient is aware of the risks, is asymptomatic, and tested negative to COVID-19.
[2021-04-06] MEDS ORDERED: ORTHO JOINT ANESTHETIC ONE (10:11)
--- NOTE | 2021-04-06 13:26 | Operative Report ---
Post Operative Report Pre & Post Diagnosis Operation Date: 04/06/21 09:50 Pre-Op Diagnosis: Osteoarthritis Knee Left Post-Op Diagnosis: Osteoarthritis Knee Left I identified the patient and participated in the time-out.: Yes Procedure Operation Date: 04/06/21 09:50 Actual Procedures p Left Total Knee Arthroplasty(Left) - Suraj Chavez MD Surgeon Suraj Chavez MD Count Team Clerk Debby Payan PA-C (No fellow avail) Estimated Blood Loss 125 Findings See Below Fluids 1000 cc Specimens Left knee contents Drains n/a Anesthesia Type MAC Spinal Regional Complications none Description of Procedure IMPLANTS: 1. Femur: Triathlon #4 Left PS. 2. Tibia: Triathlon #3 [place] with 12 x 50 mm stem. 3. Insert: Triathlon #3 x 9 mm PS X3 poly. 4. Patella: Triathlon A32 x 10 mm X3 poly. 5. Simplex cement. Debby Payan PA-C is assisting with positioning, retracting, and closure due to fellow not available. PROCEDURE: The patient was taken to the Operating Room and placed in the supine position after spinal and adductor canal nerve block was administered. My initials and a multidisciplinary time-out were used to identify the left leg as the correct operative limb. A tourniquet was placed high in the thigh. Prior to the incision, 3 grams of intravenous Ancef were given. The left leg was then prepped and draped in a standard sterile fashion. An Esmarch was used to exsanguinate the leg and the tourniquet was inflated to 250 mmHg. The planned mid-line 20 cm incision was created exposing the extensor mechanism. The medial parapatellar arthrotomy was made and the patella was everted. The patella was addressed first. It was prepared by reaming from 23 mm down to 12 mm. An A32 button was found to fit best. The peg holes were made in the standard fashion. The femur was addressed next and the guide idania was placed intramedullary. The initial cutting block was placed with 5 degrees of valgus and removing 10 mm for the distal cut. The cut was made and the 4-in-1 cutting block for a size 4 femur was placed. These cuts and the cuts to place the box were made in the standard fashion. Our attention was then drawn to the tibia cut with the external cutting guide, taking 2 mm from the medial low side. There was sufficient extension and flexion gap to fit a 9 mm spacer. A #3 Tibial baseplate fit well. A trial with a 9 mm spacer showed excellent stability in both flexion and extension, with good ligament balance, and thumbs free patellar tracking. Range of motion of 0- 110 degrees. The tibial baseplate was prepped for the keel and stem. A stem was used due to some areas of soft bone, to avoid subsidence. All the trial components were tested again, with good stability and thumbs free tracking of the patella. All components were removed. The tourniquet was deflated. Hemostasis was obtained. 90 ml of total knee cocktail were injected into the soft tissues and periosteum. A bone plug was placed in the femur and covered with bone wax. After a 15 minute break, the limb was exsanguinated again and the tourniquet was re-inflated. All surfaces were copiously irrigated prior to placement of the components. The femoral component followed by Tibial baseplate were cemented in place and the 9 mm X3 poly was placed. Next, the patellar button was placed using the same Simplex cement. Again the range of motion and stability were unchanged. The extensor mechanism was closed with 1-0 and 0 Vicryl with the knee bent approximately 60 degrees in a standard fashion. The peritenon and deep fascia was closed with 2-0 Vicryl. The subcutaneous layer was closed with 3-0 Vicryl. The skin was closed with Zipline and shield. The limb was cleaned and dried. 4x4 dressing was placed over top followed by ABDs, sterile Webril, and a foot to thigh Gurmeet bandage. The patient was then transferred to the Recovery Room in stable condition. The sponge and needle counts were correct. POST-OP INSTRUCTIONS: The patient will be WBAT. The patient will be admitted to the hospital. The patient will use the knee immobilizer when ambulating and standing until good quad control is achieved. Labs will be obtained during the stay. DVT prophylaxis will included aspirin for 6 weeks, TEDs, and mechanical foot pumps. The dressing will be changed prior to their discharge or postop day #2 and covered with a Silverlon dressing, whichever comes first. I attest to the content of the Intraoperative Record and any orders documented therein. Any exceptions are noted below.
--- NOTE | 2021-04-06 13:26 | Post Operative Brief Note ---
Immediate Post Op Note v1 Date of Surgery April 06, 2021 Pre & Post Diagnosis Operation Date: 04/06/21 09:50 Pre-Op Diagnosis: Osteoarthritis Knee Left Post-Op Diagnosis: Osteoarthritis Knee Left I identified the patient and participated in the time-out.: Yes Procedure Operation Date: 04/06/21 09:50 Actual Procedures p Left Total Knee Arthroplasty(Left) - Suraj Chavez MD Surgeon Suraj Chavez MD Wedding Decorator Debby Payan PA-C (No fellow avail) Estimated Blood Loss 125 Findings Consistent with Post-Op Diagnosis Fluids 1000 cc Specimens Left knee contents Anesthesia Type MAC Spinal Regional Complications none
[2021-04-06] MEDS ORDERED: KETOROLAC 30 MG/ML VIAL ONE (13:31)
[2021-04-06] MEDS ORDERED: bisacodyL 10 MG SUPP PR PRN (13:48)
[2021-04-06] MEDS ORDERED: SODIUM CHLORIDE 0.65% NA SOLN 45 ML (OCEAN) PRN (13:48)
[2021-04-06] MEDS ORDERED: ALUMINUM/MAGNESIUM SUSP 30 ML UDC PO PRN (13:48)
[2021-04-06] MEDS ORDERED: MAGNESIUM HYDROXIDE SUSP 30 ML UDC PO PRN (13:48)
[2021-04-06] MEDS ORDERED: clonazePAM 0.25 MG TAB PO PRN (13:48)
[2021-04-06] MEDS ORDERED: NALOXONE HCL 0.4 MG/1 ML VIAL/CARP IV PRN (13:48)
[2021-04-06] MEDS ORDERED: METOCLOPRAMIDE HCL INJ 5 MG/ML 2 ML VIAL IV PRN (13:48)
--- NOTE | 2021-04-06 13:50 | Operative Report ---
Post Operative Report Pre & Post Diagnosis Operation Date: 04/06/21 09:50 Pre-Op Diagnosis: Osteoarthritis Knee Left Post-Op Diagnosis: Osteoarthritis Knee Left I identified the patient and participated in the time-out.: Yes Procedure Operation Date: 04/06/21 09:50 Actual Procedures p Left Total Knee Arthroplasty(Left) - Suraj Chavez MD Surgeon Suraj Chavez MD Rfid Engineer Debby Payan PA-C (No fellow avail) Estimated Blood Loss 125 Findings Consistent with Post-Op Diagnosis Specimens bone Complications none Description of Procedure See Dr Chavez note. I was nursing home assistant administrator during entire case to include prepping, draping, limb and instrument handling, wound closure, dressings. I attest to the content of the Intraoperative Record and any orders documented therein. Any exceptions are noted below.
--- NOTE | 2021-04-06 14:14 | XRay Report ---
LEFT KNEE 2 VIEWS History: Left total knee arthroplasty. Degenerative arthritis. Postop. FINDINGS: The patient is status post a left total knee arthroplasty. The hardware is intact. No fract ure or dislocation. IMPRESSION: Left total knee arthroplasty. No evidence for hardware complication. ACT 112: Negative or not required by law. Electronically signed by: Ernst Arredondo M.D. 04/06/2021 2:13 PM
--- NOTE | 2021-04-06 14:24 | Anesthesiology Progress Note ---
Date of Service April 06, 2021 Anesthesia Post Procedure Vital Signs Vital Signs: Temp Pulse Pulse Resp BP Pulse Ox 04/06/21 14:10 36.4 C L 74 16 125/55 L 99 04/06/21 14:00 71 16 122/67 100 04/06/21 13:50 82 16 128/70 99 04/06/21 13:44 36.3 C L 100 H 16 103/64 97 04/06/21 08:25 36.8 C 83 20 143/82 H 99 Pain Intensity Back: Pain Intensity: 6 Transfer of Care Handoff Completed per policy Notes Mental Status: alert / awake / arousable and participated in evaluation Patient Amnestic to Procedure: Yes Nausea / Vomiting: adequately controlled Pain: adequately controlled Airway Patency, RR, SpO2: stable & adequate BP & HR: stable & adequate Hydration State: stable & adequate Anesthetic Complications: no major complications apparent and Pt Satisfied with anesthetic care
[2021-04-06] MEDS: SODIUM CHLORIDE 0.9% 1000ML 1,000 ML IV SCH ×2 (15:12→23:34)
[2021-04-06] MEDS: Scopolamine CHECK PATCH PLACEMENT SCH ×2 (15:14→23:26)
[2021-04-06] MEDS: HYDROmorphone INJ 1 MG/ML SYRINGE IV PRN ×2 (16:27→20:45)
[2021-04-06] MEDS: oxyCODONE HCL IR 5 MG TAB (IMMEDIATE RELEASE) PO PRN ×2 (17:51→23:25)
[2021-04-06] MEDS: ASCORBIC ACID 500 MG TAB PO SCH (17:52)
[2021-04-06] MEDS: FERROUS GLUCONATE 324 MG TAB PO SCH (17:52)
[2021-04-06] MEDS: ceFAZolin 2000MG 2,000 MG/15 ML SYR IV SCH (17:52)
[2021-04-06] MEDS: DOCUSATE SODIUM 100 MG CAP PO SCH (20:36)
[2021-04-06] MEDS: SENNA 8.6 MG TAB PO SCH (20:37)
[2021-04-06] MEDS: ASPIRIN 81 MG ECTAB PO SCH (20:37)
--- NOTE | 2021-04-06 21:35 | Orthopedic Progress Note ---
Date of Service April 06, 2021 Assessment & Plan (1) Osteoarthritis of left knee: POD #0 s/p left TKA, doing as well as expected. Resume diet. WBAT with walker; immobilizer with ambulation until demonstrates good quad control no more than first 48 hours. OOB to chair. Continue pain control. Check labs tomorrow. Change dressing to Silverlon POD #2 or prior to discharge, whichever comes first. DVT prophylaxis: TEDs 3 weeks, foot pumps while in hospital, ASA 81 mg BID for 6 weeks. PT/OT. D/C planning. Present on Admission?: Yes Admission and Anticipated Discharge Date Admission Date: April 06, 2021 Subjective Doing ok Physical Exam Physical Exam: LLE: Dressing clean, dry, intact. Results & Data ([facility]) Vital Signs (Past 12 Hours) Vital Signs Temp Pulse Pulse Resp BP Pulse Ox 04/06/21 19:37 37.1 C 80 16 121/73 96 04/06/21 17:54 79 18 106/69 96 04/06/21 16:39 77 16 99/61 L 96 04/06/21 15:49 72 16 106/67 98 04/06/21 15:09 70 16 108/64 97 04/06/21 14:40 36.2 C L 76 18 105/68 100 04/06/21 14:25 70 16 112/59 L 99 04/06/21 14:10 36.4 C L 74 16 125/55 L 99 04/06/21 14:00 71 16 122/67 100 04/06/21 13:50 82 16 128/70 99 04/06/21 13:44 36.3 C L 100 H 16 103/64 97 Diagnostic Findings I reviewed the AP and Lateral left knee which showed evidence of cemented left TKA.
[2021-04-07] MEDS: HYDROmorphone INJ 1 MG/ML SYRINGE IV PRN ×5 (02:09→22:18)
[2021-04-07] MEDS: ceFAZolin 2000MG 2,000 MG/15 ML SYR IV SCH (02:09)
[2021-04-07] MEDS: oxyCODONE HCL IR 5 MG TAB (IMMEDIATE RELEASE) PO PRN ×4 (05:25→19:46)
[2021-04-07] MEDS ORDERED: NURSING DECISION MEDICATION ONE (05:29)
[2021-04-07] MEDS ORDERED: COUGH DROP (SUGAR FREE) LOZ 24 LOZ/1 BOX BUCCAL PRN (05:43)
[2021-04-07] MEDS ORDERED: LEVOTHYROXINE SODIUM 50 MCG TABLET PO SCH (06:00)
[2021-04-07] MEDS: FERROUS GLUCONATE 324 MG TAB PO SCH ×2 (08:11→17:22)
[2021-04-07] MEDS: DOCUSATE SODIUM 100 MG CAP PO SCH ×2 (08:11→20:53)
[2021-04-07] MEDS: ASCORBIC ACID 500 MG TAB PO SCH ×2 (08:11→17:22)
[2021-04-07] MEDS: VITAMIN B COMPLEX TAB PO SCH (08:11)
[2021-04-07] MEDS: MULTIVITAMIN TAB PO SCH (08:11)
[2021-04-07] MEDS: ASPIRIN 81 MG ECTAB PO SCH ×2 (08:12→20:53)
[2021-04-07] MEDS: Scopolamine CHECK PATCH PLACEMENT SCH ×3 (08:12→20:54)
[2021-04-07] MEDS: LORATADINE 10 MG TAB PO SCH (08:12)
[2021-04-07] MEDS: CHOLECALCIFEROL 1,000 UNITS 25 MCG TAB PO SCH (08:12)
[2021-04-07 08:32] LABS: Hematocrit (blood only) 32.7 % (37-47); Hemoglobin 10.8 g/dL (12.0-16.0); Mean Corpuscular Hemoglobin 28.6 pg (25-34); Mean Corpuscular Volume 86.5 fL (80-100); Mean Platelet Volume 9.5 fL (7.4-10.4); Platelet Count 201 K/uL (130-400); RDW Coefficient of Variation 14.2 % (11.5-14.5); RDW Standard Deviation 44.7 fL (36.4-46.3); Red Blood Count 3.78 M/uL (4.2-5.4); White Blood Count 8.23 K/uL (4.8-10.8)
[2021-04-07 09:04] LABS: BUN Creatinine Ratio 19.5 (10-20); Calcium 8.5 mg/dl (8.5-10.1); Creatinine Clr Calc Pharmacy 102.6 ml/min; Est GFR (African American) 106.2 ml/min; Est GFR (Non-African American) 91.7 ml/min; Potassium 4.2 mmol/L (3.5-5.1)
--- NOTE | 2021-04-07 09:30 | Orthopedic Progress Note ---
Date of Service April 07, 2021 Assessment & Plan (1) Osteoarthritis of left knee: POD #1 s/p left TKA, doing as well as expected. Resume diet. WBAT with walker; immobilizer with ambulation until demonstrates good quad control no more than first 48 hours. May trial ambulation without immobilizer. OOB to chair. Continue pain control. Change dressing to Silverlon POD #2 or prior to discharge, whichever comes first. DVT prophylaxis: TEDs 3 weeks, foot pumps while in hospital, ASA 81 mg BID for 6 weeks. PT/OT. D/C planning. Admission and Anticipated Discharge Date Admission Date: April 06, 2021 Subjective Wearing immobilizer so she does not have to take it on and off because she had to frequently go to bathroom. Physical Exam Physical Exam: LLE: Dressing/Proximal incision clean, dry, intact. calf soft and non-tender. Neurovascularly intact. Able to preform straight leg raise w ithout immobilizer. Results & Data ([facility]) Vital Signs (Past 12 Hours) Vital Signs Temp Pulse Resp BP Pulse Ox 04/07/21 07:44 37.3 C 79 18 119/62 95 04/07/21 03:01 37 C 87 16 103/63 04/06/21 23:09 37.5 C 98 H 20 122/74 96 Laboratory Results 04/07/21 04/07/21 Range/Units 08:02 08:02 WBC 8.23 (4.8-10.8) K/uL RBC 3.78 L (4.2-5.4) M/uL Hgb 10.8 L (12.0-16.0) g/dL Hct 32.7 L (37-47) % MCV 86.5 (80-100) fL MCH 28.6 (25-34) pg MCHC 33.0 (32-36) g/dL RDW Std Deviation 44.7 (36.4-46.3) fL RDW Coeff of Dilshad 14.2 (11.5-14.5) % Plt Count 201 (130-400) K/uL MPV 9.5 (7.4-10.4) fL Sodium 138 (136-145) mmol/L Potassium 4.2 (3.5-5.1) mmol/L Chloride 105 (98-107) mmol/L Carbon Dioxide 26 (21-32) mmol/L Anion Gap 6.0 (3-11) BUN 14 (7-18) mg/dl Creatinine 0.72 (0.6-1.2) mg/dl Est Cr Clr Drug Dosing 102.6 ml/min Est GFR ( Amer) 106.2 ml/min Est GFR (Non-Af Amer) 91.7 ml/min BUN/Creatinine Ratio 19.5 (10-20) Glucose 113 H (70-99) mg/dl Calcium 8.5 (8.5-10.1) mg/dl
[2021-04-07] MEDS: ACETAMINOPHEN 500 MG TAB PO PRN ×2 (10:58→22:18)
[2021-04-07] MEDS: ONDANSETRON INJ 2 MG/ML 2 ML VIAL IV PRN (11:48)
--- NOTE | 2021-04-07 13:28 | Orthopedic Progress Note ---
Date of Service April 07, 2021 Assessment & Plan (1) Osteoarthritis of left knee: POD #1 s/p left TKA, doing as well as expected, still requiring IV pain meds, while keep overnight and re-eval tomorrow. Continue diet. WBAT with walker; immobilizer with ambulation until demonstrates good quad control no more than first 48 hours. May trial ambulation without immobilizer. OOB to chair. Continue pain control, encourage PO pain meds Change dressing to Silverlon POD #2 or prior to discharge, whichever comes first. DVT prophylaxis: TEDs 3 weeks, foot pumps while in hospital, ASA 81 mg BID for 6 weeks. PT/OT-work on steps. D/C planning. Admission and Anticipated Discharge Date Admission Date: April 06, 2021 Subjective Resting in bed sleeping. Had PT. Didnt do steps yet. Prefers to stay another night. Alternating dilaudid and PO oxycodone. Pain controlled. Physical Exam Physical Exam: Left leg post-op dressings intact. B AV impulse boots on. R mavis hose on. NV intact B LE. Able to wiggle toes and ankles. 5/5 B EHL, TA, gastroc strength. Results & Data ([facility]) Vital Signs (Past 12 Hours) Vital Signs Temp Pulse Resp BP Pulse Ox 04/07/21 11:59 37.3 C 94 H 18 114/65 93 04/07/21 07:44 37.3 C 79 18 119/62 95 04/07/21 03:01 37 C 87 16 103/63 Laboratory Results 04/07/21 04/07/21 Range/Units 08:02 08:02 WBC 8.23 (4.8-10.8) K/uL RBC 3.78 L (4.2-5.4) M/uL Hgb 10.8 L (12.0-16.0) g/dL Hct 32.7 L (37-47) % MCV 86.5 (80-100) fL MCH 28.6 (25-34) pg MCHC 33.0 (32-36) g/dL RDW Std Deviation 44.7 (36.4-46.3) fL RDW Coeff of Dilshad 14.2 (11.5-14.5) % Plt Count 201 (130-400) K/uL MPV 9.5 (7.4-10.4) fL Sodium 138 (136-145) mmol/L Potassium 4.2 (3.5-5.1) mmol/L Chloride 105 (98-107) mmol/L Carbon Dioxide 26 (21-32) mmol/L Anion Gap 6.0 (3-11) BUN 14 (7-18) mg/dl Creatinine 0.72 (0.6-1.2) mg/dl Est Cr Clr Drug Dosing 102.6 ml/min Est GFR ( Amer) 106.2 ml/min Est GFR (Non-Af Amer) 91.7 ml/min BUN/Creatinine Ratio 19.5 (10-20) Glucose 113 H (70-99) mg/dl Calcium 8.5 (8.5-10.1) mg/dl
[2021-04-07] MEDS: SENNA 8.6 MG TAB PO SCH (20:53)
[2021-04-08] MEDS: HYDROmorphone INJ 1 MG/ML SYRINGE IV PRN ×2 (02:13→06:37)
[2021-04-08] MEDS: oxyCODONE HCL IR 5 MG TAB (IMMEDIATE RELEASE) PO PRN ×3 (04:34→14:02)
[2021-04-08] MEDS ORDERED: LEVOTHYROXINE SODIUM 75 MCG TABLET PO SCH (06:00)
[2021-04-08] MEDS: ASCORBIC ACID 500 MG TAB PO SCH (07:14)
[2021-04-08] MEDS: ASPIRIN 81 MG ECTAB PO SCH (07:14)
[2021-04-08] MEDS: CHOLECALCIFEROL 1,000 UNITS 25 MCG TAB PO SCH (07:14)
[2021-04-08] MEDS: FERROUS GLUCONATE 324 MG TAB PO SCH (07:14)
[2021-04-08] MEDS: Scopolamine CHECK PATCH PLACEMENT SCH (07:15)
[2021-04-08] MEDS: MULTIVITAMIN TAB PO SCH (07:15)
[2021-04-08] MEDS: VITAMIN B COMPLEX TAB PO SCH (07:15)
[2021-04-08] MEDS: DOCUSATE SODIUM 100 MG CAP PO SCH (07:15)
[2021-04-08] MEDS: LORATADINE 10 MG TAB PO SCH (07:15)
[2021-04-08] MEDS: ONDANSETRON INJ 2 MG/ML 2 ML VIAL IV PRN (07:17)
--- NOTE | 2021-04-08 10:31 | Orthopedic Progress Note ---
Date of Service April 08, 2021 Assessment & Plan (1) S/P total knee arthroplasty: Patient was educated regarding today's findings. She walked 125 feet x 2 yesterday with physical therapy. Therapy will be working with her on the stairs today. Given her therapy performance, physical exam today, and vitals, she may be discharged to home this afternoon. She is ambulating adequately. Continue with ice and elevation. Dressing was changed to a Silverlon covering by me. She may get this wet in the shower but should avoid scrubbing. Follow-up in the office in 2 weeks as scheduled. Continue with her ISAURO hose. Continue with aspirin. Written discharge instructions have been provided. Admission and Anticipated Discharge Date Admission Date: April 06, 2021 Subjective Patient is seen in her room this morning. She is sitting in a chair, working with therapy. She states she is feeling a little bit better than yesterday. She has voiced concerns to the nursing staff about going home today. No chest pain, shortness of breath, nausea, vomiting, or abdominal pain. She feels she could move better if the bulky knee dressing was removed. She states there was some drainage approximately overnight. Review of Systems Review of Systems: Unchanged from yesterday. Physical Exam Physical Exam: General: Well-developed, well-nourished, obese middle-aged female, in no acute distress. Sitting in a chair. Alert and oriented. Skin: Warm dry with good turgor. No rashes or lesions. Postsurgical dressing is in place on her leg. Musculoskeletal: Left knee evaluation reveals an intact postsurgical dressing. She does have some reinforced ABDs proximally. Upon removal, zip line is in place. She has no active bleeding. Expected postoperative ecchymosis and edema. She is able to straighten her leg fully. She is able to perform a straight leg raise. Flexion to around 60 degrees. Intact active quad extension. Intact motor function of the ankle. Neurologic: Gross sensation is intact across the left leg by soft touch. Peripheral pulses are 2+. Results & Data ([facility]) Vital Signs (Past 12 Hours) Vital Signs Temp Pulse Resp BP Pulse Ox 04/08/21 06:30 37.0 C 100 H 16 113/72 97 04/08/21 01:16 101 H 04/08/21 00:05 37.4 C 04/07/21 23:33 37.7 C H
[2021-04-08] MEDS: ACETAMINOPHEN 500 MG TAB PO PRN (11:44)
--- NOTE | 2021-04-15 08:55 | Discharge Summary ---
Date of Service April 15, 2021 Principal Diagnosis Left Knee Osteoarthritis Discharge Data Allergies Allergy/AdvReac Type Severity Reaction Status Date / Time hydroxyzine Allergy Intermediate HYPERACTIVE Verified 04/06/21 08:19 levofloxacin Allergy Mild RASH Verified 04/06/21 08:19 Quinolones Allergy Mild RASH Verified 04/06/21 08:19 wheat Allergy Mild GI Verified 04/06/21 08:19 SENSITIVITY diphenhydramine AdvReac Intermediate "KEEPS ME Verified 04/06/21 08:19 AWAKE INSTEAD OF MAKING ME SLEEPY" prednisone AdvReac Intermediate PSYCHOTIC Verified 04/06/21 08:19 COMPLICATIONS tramadol AdvReac Intermediate "OUT OF Verified 04/06/21 08:19 BODY" Sulfa (Sulfonamide AdvReac Mild GI UPSET Verified 04/06/21 08:19 Antibiotics) Procedures Performed Operation Date: 04/06/21 09:50 Actual Procedures p Left Total Knee Arthroplasty(Left) - Suraj Kofi Chavez MD Ordered Studies 04/06/21 05:00 US - OR guided needle placemen Routine Hospital Course (1) Osteoarthritis of left knee: 60 yr old female underwent a left total knee arthroplasty by Dr Chavez on 04-06-21. She tolerated surgery without complications. She was transferred to floor. Post-operative course was without incident. DVT prophylaxis consisted of ASA 81mg BID, isauro hose, and foot pumps. Pain control consisted of IV meds and PO meds, with patient tolerating PO meds only by POD #2. She tolerated a PO diet and fluids. She was able to void and had gas. No BM. She tolerated physical therapy. Stairs were able to be done on POD #2. Ambulated with walker and knee immobilizer. POD 1 labs WNL. Vitals stable. Slightly high pulse but pt without symptoms. On POD #2 she was deemed stable to go home. Her dressing was changed to silverlon with tubi digital media buyer placed overtop. She was discharged to home with home health therapy and her . She will be WBAT with walker. Knee immobilizer DCd. Pain control with oxycodone and tylenol. Ice PRN. Elevate PRN. Keep silverlon waterproof dressing on until f/u. DVT prophylaxis to include ASA 81mg BID x 6wks and isauro hose 2-3wks. Other medication to include iron and vitamin C. All meds were sent to her pharmacy. She was also instructed to take OTC stool softner for constipation. She is scheduled to follow-up in the office in 2wks. She was advised to call the office or go to the ED with any questions or concerns. Please see below for more detailed discharge instructions. Total Time Total Time Spent Total Time Spent (In Minutes): 20 minutes Discharge Plan Discharge Items Patient Disposition: Home - Self-Care Reason For Visit: Osteoarthritis Knee Left Discharge Diagnosis: left knee s/p total knee replacement Condition on Discharge: Good Activity: Per Instructions section Lifting: Wait until after follow-up appointment Bathing: May shower/bathe in 3 days Exercise/Sports: Wait until after follow-up appointment Driving/Machine Use: Patient may drive when off of narcotics Weightbearing: Full weightbearing Non-emergency contact: Surgeon Call non-emergency contact if: you have any medication questions, your pain is not controlled, your temperature is above 101.5, your wound has increased redness and your wound has increased drainage Follow-up/Referrals: Anali Mathias CRNP [Primary Care Provider] - Paris Payan P.A.-C. [Physician Frit Mixer] - 04/20/21 11:15 am Diet: Regular Addtl Attending Provider Instructions: Post-operative Instructions New Medications: Oxycodone, vitamin C and Iron sent to your pharmacy. Please purchase over the counter Tylenol and take 1000mg every 8hrs a needed for pain and Aspirin 81mg twice daily for 6wks for prevention of blood clots. Pain Expect to be in a fair amount of pain after surgery. Remember, our goal is not to eliminate your pain, but to make it tolerable. It is a good idea to stay ahead of your pain by taking the medications you were prescribed once you get home. Typically, the pain starts improving 3-7 days after surgery. You should start weaning off the narcotic pain medication (oxycodone) as soon as your pain improves. Please call our office if your pain is not adequately controlled. You can take tylenol 1000mg every 8hrs for mild to moderate pain. Ice Ice your operative site at least 5 times a day for 15-30 minutes at a time. Make sure you have a thin cloth between the ice or cooling unit and your skin to prevent culp bite. This is especially important if you received a nerve block. Continue icing your operative site for the first 5-7 days after surgery, then as needed. Diet/Nausea/Vomiting Start by drinking clear liquids and eating crackers. If you can tolerate this, then you may resume your normal diet. If you feel nauseated or vomit, take Zofran/ondansetron (if prescribed). Please call our office if you have intractable nausea or vomiting, or, if after hours, you may go to the Emergency Room for help. Constipation Constipation is a common side effect of narcotic pain medication. If you have not had a bowel movement within 2 days after surgery, we recommend purchasing an over the counter laxative such as Milk of Magnesia, Dulcolax, or Miralax from a local pharmacy, and taking it as instructed. Call our clinic if any questions. Weight bearing and Range of Motion. Weightbearing as tolerated with walker. No restrictions with range of motion. *KNEE IMMOBILIZER x 48hrs AFTER SURGERY WHILE AMBULATING AND THEN CAN STOP (CONTINUE IF YOU DO NOT HAVE GOOD QUAD CONTROL)* Physical therapy Initially you will start with home health physical therapy. At our first visit with at our office we will provide you with script for outpatient physical therapy. Wound care and showering We will inspect your wound at your first post-operative visit, and may do a dressing change at that time. Most patients will be in a water-proof dressing that is removed 14 days after surgery. It is normal to see some dried blood on the dressing. Do not remove your dressing, paper strips or sutures yourself unless you are given permission. Showering is allowed the day after surgery. Do not scrub or remove any dressings. The wound should not be submerged underwater (i.e. in a bathtub or pool) until 4 weeks after surgery SIAURO stockings If you were given white stockings, these are to be worn at all times except to shower and sleep (on both legs) for the first 2 weeks after surgery. We will discuss removal at your first follow-up appointment. Driving You may not drive while taking narcotic pain medication. We will discuss return to driving at your first follow-up appointment. Return To Work Your return to work depends on what surgery was done and what type of work you do. Please bring any paperwork your employer needs completed to your first post-operative visit. Also, bring a description of your job duties, as this helps us to understand what risks you may face at work. Travel Avoid long distance travel (greater than 1 hour) in airplanes and cars for the first 6 weeks after surgery if possible. If you must travel, please let us know so we can discuss additional measures to prevent blood clots. Follow-up You should have a follow-up appointment already scheduled for 2 weeks after surgery. If not, please contact our office to make this appointment before you leave the hospital. When to call the office [phone] It is normal to have swelling and bruising in the limb that was operated on. This will improve with time. It is also normal to have fevers for the first 2 days after surgery. Reasons you should call your doctor include: Uncontrolled pain; Nausea, vomiting, or constipation that does not improve with medication; Fevers over 101.5, chills, sweats; Drainage or bleeding from the wound; Foul odor; Spreading areas of redness; Any other concerns. Pending Studies at Discharge: No Stand-Alone Forms: My [facility] [employer], Smoking Cessation Medications and DC Order Prescriptions: New ferrous gluconate 324 mg (38 mg iron) Tablet 324 mg PO BIDM 14 Days Qty: 28 RF: 0 ascorbic acid (vitamin C) [Vitamin C] 500 mg Tablet 500 mg PO BIDM 14 Days Qty: 28 RF: 0 oxycodone 5 mg Tablet 5 - 10 mg PO Q6H PRN (Reason: pain) Qty: 20 RF: 0 Continued cholecalciferol (vitamin D3) [Vitamin D3] 25 mcg (1,000 unit) capsule 2,000 units PO QAM RF: 0 clonazepam 0.5 mg Tablet 0.25 mg PO HS PRN (Reason: Anxiety) RF: 0 vitamin B complex Capsule 1 cap PO QAM RF: 0 sodium chloride [Saline Nasal] 0.65 % Aerosol,Coldiron 1 spray INTRANASAL Q3H PRN (Reason: Runny Nose) RF: 0 loratadine 10 mg Capsule 10 mg PO QAM RF: 0 levothyroxine 50 mcg tablet 50 mcg PO UD RF: 0 Krill Oil ([place] 3 and 6) 1,500-165-67.5 mg Capsule 1 cap PO QAM RF: 0 celecoxib [Celebrex] 100 mg Capsule 100 mg PO DAILY PRN (Reason: Pain) RF: 0 Discontinued acetaminophen 500 mg Tablet 1,000 mg PO Q8 PRN (Reason: pain) Qty: 60 RF: 0 Discharge Orders: Discharge Order (Routine); Ordered 04/08/21 Ordered By: Paris Payan Admission Data Admit Date/Time: 04/06/21 13:48 Attending Provider: Suraj Chavez Admit Provider: Suraj Chavez Primary Care Provider: Anali Mathias Other Interventions: Discharge Summary Assessment (RN) Last Done: 04/08/21 13:32
== END 2021-04-08 14:18 | disposition home or self-care (01) ==
LOC: 3E 07:39 → ASU 07:39

== ENCOUNTER 2022-08-17 07:15 | Observation (INO) ==
[2022-08-17] MEDS ORDERED: HYDROmorphone INJ 1 MG/ML SYRINGE IV STA (07:34)
[2022-08-17] MEDS ORDERED: ONDANSETRON INJ 2 MG/ML 2 ML VIAL IV STA (07:34)
--- NOTE | 2022-08-17 07:43 | Emergency Department Note ---
History of Present Illness General Chief complaint: Back Injury/Pain Stated complaint: BACK PAIN RADIATING THROUGH RIGHT SIDE Time Seen by Provider: 08/17/22 07:26 History of Present Illness Maximum Pain Intensity: 9 This is a 61-year-old female that presents to the emergency department via private vehicle accompanied by with complaints of "back pain radiating into abdomen". The patient notes a history of spinal fusion of the lumbar spine. This was performed by Dr. Quezada. The patient states that she has been doing quite well and is several years status post surgery. However, over the past few days she now is developing back pain that radiates into the abdomen as well as into her legs. The right side is more painful than the left. Patient notes recent COVID infection in June and notes he is still dealing with issues from this. She also notes a history of sarcoidosis. Patient does feel that her legs are weak and this is new. Patient denies any numbness/tingling in genital region. Patient denies loss of control of bowel or bladder. Pain 07/02. No fevers, chest pain, dyspnea, or urinary symptoms. She does note chills. Home Medications Medication Instructions Recorded Confirmed Type clonazepam 0.5 mg tablet 0.25 mg PO HS PRN Anxiety 07/17/18 08/17/22 History loratadine 10 mg capsule 10 mg PO QAM 07/17/18 08/17/22 History sodium chloride 0.65 % nasal spray 1 spray intranasal Q3H PRN Runny 07/17/18 08/17/22 History aerosol (Saline Nasal) Nose vitamin B complex 1 cap PO QAM 07/17/18 08/17/22 History krill 1 cap PO QAM 08/30/18 08/17/22 History pre-yp1-vrl-oki-rd4-wfe-astax 1,500 mg-165 mg-67.5 mg capsule (Krill Oil ([place] 3 and 6)) levothyroxine 50 mcg tablet 50 mcg PO UD 07/25/19 08/17/22 History cholecalciferol (vitamin D3) 25 2,000 units PO QAM 06/01/20 08/17/22 History mcg (1,000 unit) capsule (Vitamin D3) celecoxib 100 mg capsule (Celebrex) 100 mg PO DAILY PRN Pain 03/08/21 08/17/22 History benzonatate 100 mg capsule 100 mg PO TID PRN cough #20 caps 07/03/22 08/17/22 Rx Allergies Allergy/AdvReac Type Severity Reaction Status Date / Time hydroxyzine Allergy Intermediate HYPERACTIVE Verified 05/03/22 08:33 levofloxacin Allergy Mild RASH Verified 05/03/22 08:33 Quinolones Allergy Mild RASH Verified 05/03/22 08:33 wheat Allergy Mild GI Verified 05/03/22 08:33 SENSITIVITY diphenhydramine AdvReac Intermediate "KEEPS ME Verified 05/03/22 08:33 AWAKE INSTEAD OF MAKING ME SLEEPY" prednisone AdvReac Intermediate PSYCHOTIC Verified 05/03/22 08:33 COMPLICATIONS tramadol AdvReac Intermediate "OUT OF Verified 05/03/22 08:33 BODY" Sulfa (Sulfonamide AdvReac Mild GI UPSET Verified 05/03/22 08:33 Antibiotics) Past Med/Surg History Medical History Anxiety Hx of sarcoidosis NO RECENT ISSUES. SINGLE FLARE 2012. Hypothyroidism Morbid obesity Osteoarthritis Osteoarthritis of left knee Spinal stenosis Surgical History H/O bilateral salpingo-oophorectomy History of appendectomy History of bilateral tubal ligation History of breast biopsy R BREAST-BENIGN History of bronchoscopy TO DX SARCODOSIS 2013 History of carpal tunnel release RT/LEFT History of section X4 History of colonoscopy History of esophagogastroduodenoscopy (EGD) History of myringotomy History of right knee joint replacement S/P cervical spinal fusion GOOD ROM S/P lumbar spinal fusion S/P partial hysterectomy [place] teeth removed Family History Brother Diabetes Colorectal cancer Mother Diabetes Stomach cancer Sarcoidosis Lymphoma Father Coronary heart disease Other Cancer Heart disease Hypertension No family history of adverse response to anesthesia No family history of bleeding disorder Social History Smoking Status: Never smoker Second Hand Exposure: No; Hx Alcohol Use: No Hx Substance Use: No Preferred Language: Kosovan Communication Ability: Effective Visual Impairment: No Limitations Manager Material Required: No Beliefs That Will Affect Care: None marital status: Current Living Situation: Spouse Feels Safe at Home: Yes Assistive Devices: Walker Review of Systems A total of 10 systems reviewed and were otherwise negative Physical Exam Vital Signs Vital Signs - 24 hr 08/17/22 07:19 08/17/22 07:42 08/17/22 07:56 Temperature 36.5 C Temperature Source Temporal Artery Scan Pulse Rate 93 H 86 Pulse Rate [Finger] Pulse Rate from SpO2 Sensor 86 Respiratory Rate 14 17 Blood Pressure 129/79 Blood Pressure [Left Calf] Blood Pressure Mean 95 Blood Pressure Mean [Left Calf] Pulse Oximetry 98 95 97 Oxygen Delivery Method Room Air Room Air Sepsis New/Unexplained Change in Mental Status No Sepsis Action Taken by Nursing No Action Required 08/17/22 08:00 08/17/22 08:00 08/17/22 08:30 Temperature Temperature Source Pulse Rate 83 76 Pulse Rate [Finger] Pulse Rate from SpO2 Sensor 83 77 Respiratory Rate 15 20 Blood Pressure 140/87 Blood Pressure [Left Calf] Blood Pressure Mean 104 Blood Pressure Mean [Left Calf] Pulse Oximetry 96 100 Oxygen Delivery Method Sepsis New/Unexplained Change in Mental Status Sepsis Action Taken by Nursing 08/17/22 08:30 08/17/22 09:00 08/17/22 12:08 Temperature Temperature Source Pulse Rate 77 77 Pulse Rate [Finger] 79 Pulse Rate from SpO2 Sensor Respiratory Rate 20 18 18 Blood Pressure 130/84 Blood Pressure [Left Calf] 142/74 H Blood Pressure Mean 99 Blood Pressure Mean [Left Calf] 96 Pulse Oximetry 100 98 Oxygen Delivery Method Room Air Sepsis New/Unexplained Change in Mental Status Sepsis Action Taken by Nursing 08/17/22 12:16 08/17/22 14:00 08/17/22 16:00 Temperature Temperature Source Pulse Rate Pulse Rate [Finger] 78 79 81 Pulse Rate from SpO2 Sensor Respiratory Rate 18 18 18 Blood Pressure Blood Pressure [Left Calf] 142/74 H 119/78 136/70 Blood Pressure Mean Blood Pressure Mean [Left Calf] 96 91 92 Pulse Oximetry 98 99 96 Oxygen Delivery Method Room Air Sepsis New/Unexplained Change in Mental Status Sepsis Action Taken by Nursing VITAL SIGNS - Vital signs and nursing notes were reviewed. Stable and afebrile. GENERAL - 61-year-old female appearing her stated age who is in no acute distress but appears to be in pain. Communicates well with provider and answers questions appropriately. SKIN - Without rashes. No meningeal or petechial rash. HEAD - NC/AT. EYES - PERRL with EOMI bilaterally. Sclera anicteric. EARS - No deformities of external structures noted on gross examination bilaterally. NOSE - Midline and without cyanosis. No epistaxis or purulent drainage noted. MOUTH/OROPHARYNX - Without perioral cyanosis. NECK - Neck with FROM. No nuchal rigidity. LUNGS - Chest wall symmetric without accessory muscle use, intercostals retractions, or central cyanosis. Normal vesicular breath sounds CTA B/L. No wheezes, rales, or rhonchi appreciated. CARDIAC - RRR with S1/S2. No murmur, rubs, or gallops appreciated. ABDOMEN - Abdominal contour normal without pulsations or visible masses. BS normoactive all four quadrants. No tenderness, palpable masses, hepatosplenomegaly, or ascites noted. EXTREMITIES - No clubbing or peripheral cyanosis. +5/5 strength noted in UE/LE bilaterally. NEUROLOGIC - Cranial nerves II through XII grossly intact. PSYCH - A&O, and cooperates fully with examiner. Pt is very pleasant and interacts well with examiner. Course Administered Medications Discontinued Medications Gadobutrol (Gadobutrol 65ml Vial) 12 ml IV ONCE ONE Stop: 08/17/22 10:00 Last Admin: 08/17/22 10:00 Dose: 12 ml Documented By: AF Hydromorphone HCl (Hydromorphone Inj 1 Mg/Ml Syringe) 1 mg IV NOW STA Stop: 08/17/22 07:35 Last Admin: 08/17/22 07:58 Dose: 1 mg Documented By: HS Hydromorphone HCl (Hydromorphone Inj 0.5 Mg/0.5 Ml Syr) 0.5 mg IV NOW STA Stop: 08/17/22 10:42 Last Admin: 08/17/22 10:44 Dose: 0.5 mg Documented By: HS Hydromorphone HCl (Hydromorphone Inj 0.5 Mg/0.5 Ml Syr) 0.5 mg IV NOW STA Stop: 08/17/22 14:07 Last Admin: 08/17/22 14:22 Dose: 0.5 mg Documented By: HUAN Ioversol (Optiray 350 100ml) 84 ml IV ONCE ONE Stop: 08/17/22 11:51 Last Admin: 08/17/22 11:54 Dose: 84 ml Documented By: TAYLOR Ondansetron HCl (Ondansetron Inj 2 Mg/Ml 2 Ml Vial) 4 mg IV NOW STA Stop: 08/17/22 07:35 Last Admin: 08/17/22 07:58 Dose: 4 mg Documented By: NEFTALI Medical Decision Making Laboratory Data Result diagrams: 08/17/22 08:10 08/17/22 08:10 Lab Results 08/17/22 08/17/22 08/17/22 Range/Units 08:10 08:10 08:10 WBC 3.99 L (4.8-10.8) K/ul RBC 4.28 (3.93-5.22) M/uL Hgb 12.4 (12.0-16.0) g/dl Hct 36.6 (34.1-44.9) % MCV 85.5 (80.0-100.0) fL MCH 29.0 (25.0-34.0) pg MCHC 33.9 (32.0-36.0) g/dL RDW Std Deviation 44.1 (36.4-46.3) fL RDW Coeff of Dilshad 14.5 (11.5-14.5) % Plt Count 189 (130-400) K/uL MPV 9.8 (9.4-12.3) fL Immature Gran % (Auto) 0.3 % Neut % (Auto) 56.6 % Lymph % (Auto) 32.3 % [place]ison % (Auto) 7.0 % Eos % (Auto) 3.3 % Baso % (Auto) 0.5 % Neut # (Auto) 2.26 (1.4-6.5) K/uL Lymph # (Auto) 1.29 (1.2-3.4) K/uL [place] # (Auto) 0.28 (0.24-0.82) K/uL Eos # (Auto) 0.13 (0-0.50) K/uL Baso # (Auto) 0.02 (0-0.2) K/uL Immature Gran # (Auto) 0.01 (0.00-0.02) K/uL PT (9.0-12.0) Seconds INR (0.9-1.1) APTT (21.0-31.0) Seconds PTT Ratio Sodium 137 (136-145) mmol/L Potassium 3.9 (3.5-5.1) mmol/L Chloride 104 (98-107) mmol/L Carbon Dioxide 26 (21-32) mmol/L Anion Gap 7 (3-11) BUN 14 (6-23) mg/dl Creatinine 0.61 (0.6-1.2) mg/dl Est Cr Clr Drug Dosing 120.8 ml/min Est GFR ( Amer) 114.2 ml/min Est GFR (Non-Af Amer) 98.5 ml/min BUN/Creatinine Ratio 23.0 H (10-20) Glucose 107 H (70-99(Fasting)) mg/dl Calcium 9.3 (8.5-10.1) mg/dl Magnesium 2.0 (1.7-2.4) mg/dl Total Bilirubin 0.7 (0.2-1.0) mg/dl AST 34 (13-39) U/L ALT 47 (7-52) U/L Alkaline Phosphatase 56 (34-104) U/L Troponin I High Sens 2.7 (0-14) pg/ml C-Reactive Protein (0-0.5) mg/dl Total Protein 7.6 (6.0-8.3) gm/dl Albumin 4.1 (3.4-5.0) gm/dl Globulin 3.5 (2.5-4.0) gm/dl Albumin/Globulin Ratio 1.2 (0.9-2) Lipase 25 (11-82) U/L Urine Color Urine Appearance (Clear) Urine pH (4.5-7.5) Ur Specific [place] (1.000-1.030) Urine Protein (Negative) Urine Glucose (UA) (Negative) Urine Ketones (Negative) Urine Blood (Negative) Urine Nitrite (Negative) Urine Bilirubin (Negative) Urine Urobilinogen (Negative) Ur Leukocyte Esterase (Negative) Anaplasma Smear See Comment Babesia Smear See Comment Lyme Disease IgG Ab (Negative) Lyme Disease IgM Ab (Negative) 08/17/22 08/17/22 08/17/22 Range/Units 08:10 09:16 09:16 WBC (4.8-10.8) K/ul RBC (3.93-5.22) M/uL Hgb (12.0-16.0) g/dl Hct (34.1-44.9) % MCV (80.0-100.0) fL MCH (25.0-34.0) pg MCHC (32.0-36.0) g/dL RDW Std Deviation (36.4-46.3) fL RDW Coeff of Dilshad (11.5-14.5) % Plt Count (130-400) K/uL MPV (9.4-12.3) fL Immature Gran % (Auto) % Neut % (Auto) % Lymph % (Auto) % [place] % (Auto) % Eos % (Auto) % Baso % (Auto) % Neut # (Auto) (1.4-6.5) K/uL Lymph # (Auto) (1.2-3.4) K/uL [place] # (Auto) (0.24-0.82) K/uL Eos # (Auto) (0-0.50) K/uL Baso # (Auto) (0-0.2) K/uL Immature Gran # (Auto) (0.00-0.02) K/uL PT 10.5 (9.0-12.0) Seconds INR 1.0 (0.9-1.1) APTT 28.9 (21.0-31.0) Seconds PTT Ratio 1.1 Sodium (136-145) mmol/L Potassium (3.5-5.1) mmol/L Chloride (98-107) mmol/L Carbon Dioxide (21-32) mmol/L Anion Gap (3-11) BUN (6-23) mg/dl Creatinine (0.6-1.2) mg/dl Est Cr Clr Drug Dosing ml/min Est GFR ( Amer) ml/min Est GFR (Non-Af Amer) ml/min BUN/Creatinine Ratio (10-20) Glucose (70-99(Fasting)) mg/dl Calcium (8.5-10.1) mg/dl Magnesium (1.7-2.4) mg/dl Total Bilirubin (0.2-1.0) mg/dl AST (13-39) U/L ALT (7-52) U/L Alkaline Phosphatase (34-104) U/L Troponin I High Sens (0-14) pg/ml C-Reactive Protein < 0.50 (0-0.5) mg/dl Total Protein (6.0-8.3) gm/dl Albumin (3.4-5.0) gm/dl Globulin (2.5-4.0) gm/dl Albumin/Globulin Ratio (0.9-2) Lipase (11-82) U/L Urine Color Urine Appearance (Clear) Urine pH (4.5-7.5) Ur Specific [place] (1.000-1.030) Urine Protein (Negative) Urine Glucose (UA) (Negative) Urine Ketones (Negative) Urine Blood (Negative) Urine Nitrite (Negative) Urine Bilirubin (Negative) Urine Urobilinogen (Negative) Ur Leukocyte Esterase (Negative) Anaplasma Smear Babesia Smear Lyme Disease IgG Ab Negative (Negative) Lyme Disease IgM Ab Negative (Negative) 08/17/22 Range/Units Unknown WBC (4.8-10.8) K/ul RBC (3.93-5.22) M/uL Hgb (12.0-16.0) g/dl Hct (34.1-44.9) % MCV (80.0-100.0) fL MCH (25.0-34.0) pg MCHC (32.0-36.0) g/dL RDW Std Deviation (36.4-46.3) fL RDW Coeff of Dilshad (11.5-14.5) % Plt Count (130-400) K/uL MPV (9.4-12.3) fL Immature Gran % (Auto) % Neut % (Auto) % Lymph % (Auto) % [place] % (Auto) % Eos % (Auto) % Baso % (Auto) % Neut # (Auto) (1.4-6.5) K/uL Lymph # (Auto) (1.2-3.4) K/uL [place] # (Auto) (0.24-0.82) K/uL Eos # (Auto) (0-0.50) K/uL Baso # (Auto) (0-0.2) K/uL Immature Gran # (Auto) (0.00-0.02) K/uL PT (9.0-12.0) Seconds INR (0.9-1.1) APTT (21.0-31.0) Seconds PTT Ratio Sodium (136-145) mmol/L Potassium (3.5-5.1) mmol/L Chloride (98-107) mmol/L Carbon Dioxide (21-32) mmol/L Anion Gap (3-11) BUN (6-23) mg/dl Creatinine (0.6-1.2) mg/dl Est Cr Clr Drug Dosing ml/min Est GFR ( Amer) ml/min Est GFR (Non-Af Amer) ml/min BUN/Creatinine Ratio (10-20) Glucose (70-99(Fasting)) mg/dl Calcium (8.5-10.1) mg/dl Magnesium (1.7-2.4) mg/dl Total Bilirubin (0.2-1.0) mg/dl AST (13-39) U/L ALT (7-52) U/L Alkaline Phosphatase (34-104) U/L Troponin I High Sens (0-14) pg/ml C-Reactive Protein (0-0.5) mg/dl Total Protein (6.0-8.3) gm/dl Albumin (3.4-5.0) gm/dl Globulin (2.5-4.0) gm/dl Albumin/Globulin Ratio (0.9-2) Lipase (11-82) U/L Urine Color Dark Yellow Urine Appearance Clear (Clear) Urine pH 6.0 (4.5-7.5) Ur Specific [place] 1.019 (1.000-1.030) Urine Protein Negative (Negative) Urine Glucose (UA) Negative (Negative) Urine Ketones Negative (Negative) Urine Blood Negative (Negative) Urine Nitrite Negative (Negative) Urine Bilirubin Negative (Negative) Urine Urobilinogen Negative (Negative) Ur Leukocyte Esterase Negative (Negative) Anaplasma Smear Babesia Smear Lyme Disease IgG Ab (Negative) Lyme Disease IgM Ab (Negative) Imaging Data Radiologist's Impression: Lumbar Spine MRI 08/17/22 07:34 MR lumbar spine wo/w con CLINICAL HISTORY: severe low back pain, hx of spine surgery TECHNIQUE: 3 plane localizer images, sagittal T2, sagittal T1, sagittal STIR, axial T1, axial T2 along with postcontrast axial T1 and sagittal T1 fat- saturated sequences were obtained of the lumbar spine, before and after intravenous administration of 12 mL of MultiHance. Comparison: Comparison is made to MRI lumbar spine 09/11/2015 FINDINGS: Posterior fixation hardware is seen spanning L2-L3. Degenerative changes are noted in the discs and vertebral bodies. L1-L2: There is a broad-based posterior disc bulge with mild canal stenosis. L2-L3: No significant abnormality. L3-L4: No significant abnormality. L4-L5: Degenerative changes are seen resulting in mild bilateral neural foraminal stenosis. L5-S1: No significant abnormality. The spinal ligaments are intact, without evidence of disruption or abnormal signal intensity. The spinal cord is normal in signal intensity and there is no evidence of cord contusion. There is no evidence of an extradural, intradural, extramedullary or intramedullary lesion. Visualized soft tissues are normal. IMPRESSION: Interval revision of hardware with L2-L3 posterior fixation hardware seen, s tatus post removal of L3-L4 hardware. There is interval development of mild canal stenosis in the L1-L2 level with mild bilateral neural foraminal stenosis secondary to posterior disc bulge. Mild bilateral neural foraminal stenosis is also seen at L4-L5. ACT 112: Negative or not required by law. Electronically signed by: Willard Velez M.D. 08/17/2022 10:36 AM Lumbar Spine X-Ray 08/17/22 07:35 XR lumbar spine min 4V routine CLINICAL HISTORY: low back pain, hx of back surgery TECHNIQUE: 5 views of the lumbar spine were obtained. Comparison: Comparison is made to lumbar spine radiographs 05/30/2014 FINDINGS: Posterior fixation hardware is seen. There is interval removal of L4-L5 fixation hardware. There is no perihardware lucency or hardware fracture. Degenerative changes are seen in the lumbar spine. The alignment is normal. No soft tissue abnormality is seen. IMPRESSION: Degenerative changes as above without acute fracture or subluxation. Fixation hardware as above. ACT 112: Negative or not required by law. Electronically signed by: Willard Velez M.D. 08/17/2022 9:00 AM Abdomen/Pelvis CT 08/17/22 11:02 CT abd pelvis IV con only CLINICAL HISTORY: low back pain radiating into abdomen TECHNIQUE: Helical axial images of the abdomen and pelvis were obtained and displayed. Automated dose lowering techniques and/or adjustment according to patient size were utilized for this exam. This exam was performed with intravenous contrast. CT DOSE: 1063.30 mGycm COMPARISON: Comparison is made to CT abdomen pelvis 731 FINDINGS: Lower chest: No acute abnormality Liver: Unremarkable. No focal lesions are seen. Gallbladder and biliary tree: No calcified gallstones. Normal caliber wall. No intra- or extrahepatic biliary ductal dilation. Pancreas: Unremarkable, no focal lesions. Spleen: Unremarkable. Adrenals: Unremarkable. Kidneys and ureters: Bilateral parapelvic cysts are seen. No evidence of hydronephrosis or hydroureter. Bladder: Hyperdense material is noted in the bladder which may reflect excreted contrast. Reproductive organs: Patient is status post hysterectomy. Bowel: Unremarkable. Lymph nodes Retroperitoneal: Unremarkable. Pelvic: Unremarkable. Mesenteric: Unremarkable. Peritoneum: Surgical clips are noted in the lower abdomen. Vessels: Unremarkable. Abdominal wall: Unremarkable. Bones: Posterior fixation hardware and disc prostheses are noted in the lumbar spine. IMPRESSION: No acute abnormalities. ACT 112: Negative or not required by law. Electronically signed by: Willard Velez M.D. 08/17/2022 12:[address] [facility] Narrative Patient was seen and evaluated as above in room C11. Review was performed of nursing notes and vital signs. I did review pertinent previous visits and patient history. After obtaining a thorough history and physical examination the above work up was performed. Patient presents to us today with low back pain that radiates into the legs and abdomen. Vital signs stable. Well-perfused in the extremities. No deficits. Patient does feel that her legs are more weak than usual. She has a history of spine surgery. Options of care were discussed with the patient. IV access was established. Labs were drawn. IV analgesics and antiemetic ordered. Given the patient surgical history I did find it reasonable to proceed with x-ray of the L-spine as well as MRI with and without of the L-spine. Patient does have several comorbidities which could contribute to her presentation however at this time L- spine is felt to be the etiology. I will note that on 07/03/2022 the patient did have a CTA performed of her chest. I will note that there were no PEs seen at that time. However, given the patient's comorbidities I did find it reasonable to expand the work-up. An EKG was obtained and was similar to previous and without ischemic change. Labs reveal mild leukopenia 3.99. No anemia. Coags normal. Metabolic panel without significant abnormality. Troponin negative. Urinalysis negative. Lyme testing and smear for Anaplasma BCF negative. Send out testing for tickborne illnesses pending. MRI results as above. Although there are findings on this imaging study that could certainly contribute to her symptoms I did find it reasonable to rule out acute intra-abdominal processes noting the radiation of pain into the abdomen. Results of the CT as above. This was read as negative. At this time the patient is still with ongoing back pain radiating into the abdomen and into the legs. This is despite multiple rounds of IV narcotic analgesics. At this time I do believe would be reasonable to consider further evaluation and management in the inpatient setting. Patient in agreement with this plan. Patient happy with plan of care. Case discussed with the hospitalist service. Please refer to further documentation regarding her stay. Case was discussed with the attending physician. EKG was reviewed by myself and found to be Normal Sinus Rhythm at a rate of 84 beats per minute and per my interpretation reveals no ST elevation or ischemic change and when compared to previous EKG of 07/03/22 is without significant change. GCS: 15 In the evaluation and treatment of this patient the following differential diagnosis entertained: Fracture, dislocation, subluxation, cauda equina syndrome, AAA, diverticulitis, appendicitis, torsion, osteomyelitis, piriformis syndrome, strain, sprain, among others. Impression & Plan Intractable low back pain, Hx of spinal surgery Discharge Plan Visit Data Chief Complaint: Back Injury/Pain Stated Complaint: BACK PAIN RADIATING THROUGH RIGHT SIDE ED Provider: Dequan Miller ED Midlevel Provider: Bruno Dong Discharge Problem: Intractable low back pain, Hx of spinal surgery Patient Disposition: Admitted As Inpatient Condition: Good Forms Stand Alone Forms: My [facility] [employer] Prescriptions Prescriptions: No Action cholecalciferol (vitamin D3) [Vitamin D3] 25 mcg (1,000 unit) capsule 2,000 units PO QAM clonazepam 0.5 mg Tablet 0.25 mg PO HS PRN (Reason: Anxiety) vitamin B complex Capsule 1 cap PO QAM Saline Nasal 0.65 % Aerosol,[place] 1 spray INTRANASAL Q3H PRN (Reason: Runny Nose) Label Comments: " i have not used that in awhile" loratadine 10 mg Capsule 10 mg PO QAM levothyroxine 50 mcg tablet 50 mcg PO UD Rx Instructions: TAKES 1 TAB Q2D AND 1.5 TAB Q2D (ALTERNATE DOSES) Krill Oil ([place] 3 and 6) 1,500-165-67.5 mg Capsule 1 cap PO QAM celecoxib [Celebrex] 100 mg Capsule 100 mg PO DAILY PRN (Reason: Pain) benzonatate 100 mg capsule 100 mg PO TID PRN (Reason: cough) Qty: 20 0RF Referrals Referrals: Anali Mathias CRNP [Primary Care Provider] -
[2022-08-17 08:39] LABS: Hematocrit (blood only) 36.6 % (34.1-44.9); Hemoglobin 12.4 g/dl (12.0-16.0); Mean Corpuscular Hgb Conc 33.9 g/dL (32.0-36.0); Mean Corpuscular Volume 85.5 fL (80.0-100.0); Mean Platelet Volume 9.8 fL (9.4-12.3); Platelet Count 189 K/uL (130-400); RDW Coefficient of Variation 14.5 % (11.5-14.5); RDW Standard Deviation 44.1 fL (36.4-46.3); Red Blood Count 4.28 M/uL (3.93-5.22); White Blood Count 3.99 K/ul (4.8-10.8)
[2022-08-17 08:50] LABS: Basophils # (auto) 0.02 K/uL (0-0.2); Basophils % (auto) 0.5 %; Eosinophils # (auto) 0.13 K/uL (0-0.50); Eosinophils % (auto) 3.3 %; Immature Granulocytes # (auto) 0.01 K/uL (0.00-0.02); Immature Granulocytes % (auto) 0.3 %; Lymphocytes # (auto) 1.29 K/uL (1.2-3.4); Lymphocytes % (auto) 32.3 %; Monocytes # (auto) 0.28 K/uL (0.24-0.82); Neutrophils # (auto) 2.26 K/uL (1.4-6.5); Neutrophils % (auto) 56.6 %
[2022-08-17 08:52] LABS: Troponin I High Sensitivity 2.7 pg/ml (0-14)
--- NOTE | 2022-08-17 09:01 | XRay Report ---
XR lumbar spine min 4V routine CLINICAL HISTORY: low back pain, hx of back surgery TECHNIQUE: 5 views of the lumbar spine were obtained. Comparison: Comparison is made to lumbar spine radiographs 05/30/2014 FINDINGS: Posterior fixation hardware is seen. There is interval removal of L4-L5 fixation hardware. There is n o perihardware lucency or hardware fracture. Degenerative changes are seen in the lumbar spine. The a lignment is normal. No soft tissue abnormality is seen. IMPRESSION: Degenerative changes as above without acute fracture or subluxation. Fixation hardware as above. ACT 112: Negative or not required by law. Electronically signed by: Willard Velez M.D. 08/17/2022 9:00 AM
[2022-08-17 09:05] LABS: Albumin Globulin Ratio 1.2 (0.9-2); Albumin Level 4.1 gm/dl (3.4-5.0); Bilirubin,Total 0.7 mg/dl (0.2-1.0); Calcium 9.3 mg/dl (8.5-10.1); Creatinine Clr Calc Pharmacy 120.8 ml/min; Est GFR (African American) 114.2 ml/min; Est GFR (Non-African American) 98.5 ml/min; Globulin 3.5 gm/dl (2.5-4.0); Potassium 3.9 mmol/L (3.5-5.1); Total Protein 7.6 gm/dl (6.0-8.3)
[2022-08-17] MEDS ORDERED: GADOBUTROL 65ML VIAL IV ONE (09:59)
[2022-08-17 10:02] LABS: Partial Thromboplastin Ratio 1.1; Partial Thromboplastin Time 28.9 Seconds (21.0-31.0); Prothrombin Time 10.5 Seconds (9.0-12.0)
[2022-08-17 10:36] LABS: Lyme Ab IgG w/WB Rflx Negative (Negative); Lyme Ab IgM w/WB Rflx Negative (Negative)
--- NOTE | 2022-08-17 10:38 | Magnetic Resonance Report ---
MR lumbar spine wo/w con CLINICAL HISTORY: severe low back pain, hx of spine surgery TECHNIQUE: 3 plane localizer images, sagittal T2, sagittal T1, sagittal STIR, axial T1, axial T2 angelita g with postcontrast axial T1 and sagittal T1 fat-saturated sequences were obtained of the lumbar spin e, before and after intravenous administration of 12 mL of MultiHance. Comparison: Comparison is made to MRI lumbar spine 09/11/2015 FINDINGS: Posterior fixation hardware is seen spanning L2-L3. Degenerative changes are noted in the discs and v ertebral bodies. L1-L2: There is a broad-based posterior disc bulge with mild canal stenosis. L2-L3: No significant abnormality. L3-L4: No significant abnormality. L4-L5: Degenerative changes are seen resulting in mild bilateral neural foraminal stenosis. L5-S1: No significant abnormality. The spinal ligaments are intact, without evidence of disruption or abnormal signal intensity. The spi nal cord is normal in signal intensity and there is no evidence of cord contusion. There is no eviden ce of an extradural, intradural, extramedullary or intramedullary lesion. Visualized soft tissues are normal. IMPRESSION: Interval revision of hardware with L2-L3 posterior fixation hardware seen, status post removal of L3- L4 hardware. There is interval development of mild canal stenosis in the L1-L2 level with mild bilate ral neural foraminal stenosis secondary to posterior disc bulge. Mild bilateral neural foraminal sten osis is also seen at L4-L5. ACT 112: Negative or not required by law. Electronically signed by: Willard Velez M.D. 08/17/2022 10:36 AM
[2022-08-17] MEDS ORDERED: HYDROmorphone INJ 0.5 MG/0.5 ML SYR IV STA ×2 (10:41→14:06)
[2022-08-17] MEDS ORDERED: OPTIRAY 350 100ml IV ONE (11:50)
--- NOTE | 2022-08-17 12:25 | CT Scan Report ---
CT abd pelvis IV con only CLINICAL HISTORY: low back pain radiating into abdomen TECHNIQUE: Helical axial images of the abdomen and pelvis were obtained and displayed. Automated dose lowering techniques and/or adjustment according to patient size were utilized for this exam. This e xam was performed with intravenous contrast. CT DOSE: 1063.30 mGycm COMPARISON: Comparison is made to CT abdomen pelvis 731 FINDINGS: Lower chest: No acute abnormality Liver: Unremarkable. No focal lesions are seen. Gallbladder and biliary tree: No calcified gallstones. Normal caliber wall. No intra- or extrahepatic biliary ductal dilation. Pancreas: Unremarkable, no focal lesions. Spleen: Unremarkable. Adrenals: Unremarkable. Kidneys and ureters: Bilateral parapelvic cysts are seen. No evidence of hydronephrosis or hydrourete r. Bladder: Hyperdense material is noted in the bladder which may reflect excreted contrast. Reproductive organs: Patient is status post hysterectomy. Bowel: Unremarkable. Lymph nodes Retroperitoneal: Unremarkable. Pelvic: Unremarkable. Mesenteric: Unremarkable. Peritoneum: Surgical clips are noted in the lower abdomen. Vessels: Unremarkable. Abdominal wall: Unremarkable. Bones: Posterior fixation hardware and disc prostheses are noted in the lumbar spine. IMPRESSION: No acute abnormalities. ACT 112: Negative or not required by law. Electronically signed by: Willard Vleez M.D. 08/17/2022 12:23 PM
[2022-08-17 12:55] LABS: Appearance Urine Clear (Clear); Bilirubin Urine Negative (Negative); Blood Urine Negative (Negative); Color Urine Dark Yellow; Glucose Urine UA Negative (Negative); Ketones Urine Negative (Negative); Leukocyte Esterase Urine Negative (Negative); Nitrite Urine Negative (Negative); Protein Urine Negative (Negative); Specific Gravity Urine 1.019 (1.000-1.030); Urobilinogen Urine Negative (Negative)
--- NOTE | 2022-08-17 14:20 | History & Physical Report ---
Date of Service August 17, 2022 Assessment & Plan (1) Acute exacerbation of chronic low back pain: Plan: - Patient with chronic low back pain and multiple spinal surgeries, presenting with is under a weeks worth of low back pain with radiation to bilateral lower extremities. -Suspect this is an acute exacerbation of known chronic low back pain. Suspicion for infectious etiology is low, she does report night sweats over the past week with the onset of the pain, however may be due to the pain and not indicative of infection. Last surgery was nearly 4 years ago. Without leukocytosis. We will add ESR and CRP onto labs. - Lumbar MRI: L1-L2 posterior disc bulge with mild canal stenosis, hardware seen at L2-L3, there are degenerative changes at L4-L5 with mild bilateral neuroforaminal stenosis. - CT A/P ordered given her complaint of back pain wrapping around to her abdomen, unremarkable. - For now, will admit patient for pain controlrotate between Tylenol and Toradol for mild/moderate pain with Dilaudid for more moderate to severe pain. We will also use heat and lidocaine patches. Patient has had adverse reactions to steroids in the past, wishing to avoid these if possible, also tends to retain an excessive amount of fluid with gabapentin, wishes to avoid this. - Will consult Dr. Quezada to evaluate patient while she is admitted. (2) Diabetes: Plan: - Currently diet/exercise controlled, monitor sugars at home states they are typically 150 at the highest. Glucose was 107 on presenting BMP. - A1c checked last summer, was 5.4%. - If patient does get placed on steroids, may consider checking sugars/adding SSI. - Diabetic/gluten-free diet at patient's request. (3) Hx of sarcoidosis: Plan: - History of such with a single flare in 2012. No further issues. (4) Hypothyroidism: Plan: - Continue levothyroxine 50 mcg daily. (5) Anxiety: Plan: - Continue Klonopin 0.25 mg at night as needed. Plan - Admit to [facility] for pain control. - SCDs for VTE PPx. - Full code. History of Present Illness Chief Complaint: Back pain x1 week Primary Care Provider: JENNY Carter Beryl Villanueva is a 61-year-old female with past medical history significant for hypothyroidism, diabetes, sarcoidosis, morbid obesity, and multiple spinal surgeries who is presenting today with back pain. Patient is 4 years s/p lumbar decompression and fusion with Dr. Quezada. She has been doing well up until a few days ago when she developed low back pain that radiates into her abdomen and causes numbness and tingling down both of her legs. Legs are affected, but right side seems worse than the left. Her legs feel weak and this is definitely new for her. She has not lost control of bowel or bladder, denies any groin numbness, and has been able to ambulate however it is painful. He has not had any fever or chills, chest pain, shortness of breath, palpitations, nausea, vomiting, urinary symptoms. She is moving her bowels normally for her. Upon presentation to the ED, her vital signs have been within normal limits and stable. She has a chronically low WBC, today is 3.9. Labs are otherwise all unremarkable, UA without evidence of infection. Lyme IgM and IgG negative, Babesia and anaplasmosis pending. Lumbar spine MRI shows a broad-based posterior disc bulge with mild canal stenosis at L1-L2 level. There is mild bilateral neural foraminal stenosis at L4-L5. Hardware is noted at L2-L3. No evidence of fracture or subluxation. CT of abdomen pelvis was obtained given pain radiating into the abdomen, it is unremarkable for any acute abnormalities or vascular disease. In the ED, she has received several doses of Dilaudid and continues to be quite uncomfortable. Allergies Allergy/AdvReac Type Severity Reaction Status Date / Time hydroxyzine Allergy Intermediate HYPERACTIVE Verified 05/03/22 08:33 levofloxacin Allergy Mild RASH Verified 05/03/22 08:33 Quinolones Allergy Mild RASH Verified 05/03/22 08:33 wheat Allergy Mild GI Verified 05/03/22 08:33 SENSITIVITY diphenhydramine AdvReac Intermediate "KEEPS ME Verified 05/03/22 08:33 AWAKE INSTEAD OF MAKING ME SLEEPY" prednisone AdvReac Intermediate PSYCHOTIC Verified 05/03/22 08:33 COMPLICATIONS tramadol AdvReac Intermediate "OUT OF Verified 05/03/22 08:33 BODY" Sulfa (Sulfonamide AdvReac Mild GI UPSET Verified 05/03/22 08:33 Antibiotics) Home Medications Medication Instructions Recorded Confirmed Type clonazepam 0.5 mg tablet 0.25 mg PO HS PRN Anxiety 07/17/18 08/17/22 History loratadine 10 mg capsule 10 mg PO QAM 07/17/18 08/17/22 History sodium chloride 0.65 % nasal spray 1 spray intranasal Q3H PRN Runny 07/17/18 08/17/22 History aerosol (Saline Nasal) Nose vitamin B complex 1 cap PO QAM 07/17/18 08/17/22 History krill 1 cap PO QAM 08/30/18 08/17/22 History wgd-eo4-dbr-rgr-tx5-wtp-astax 1,500 mg-165 mg-67.5 mg capsule (Krill Oil ([place] 3 and 6)) levothyroxine 50 mcg tablet 50 mcg PO UD 07/25/19 08/17/22 History cholecalciferol (vitamin D3) 25 2,000 units PO QAM 06/01/20 08/17/22 History mcg (1,000 unit) capsule (Vitamin D3) celecoxib 100 mg capsule (Celebrex) 100 mg PO DAILY PRN Pain 03/08/21 08/17/22 History benzonatate 100 mg capsule 100 mg PO TID PRN cough #20 caps 07/03/22 08/17/22 Rx oxycodone 5 mg capsule 5 mg PO Q6H PRN pain #14 caps 08/19/22 Rx prednisone 10 mg tablet See Rx Instructions .Route 08/19/22 Rx .COMPLEX #18 tabs Past Med/Surg History Medical History Anxiety Hx of sarcoidosis NO RECENT ISSUES. SINGLE FLARE 2012. Hypothyroidism Morbid obesity Osteoarthritis Osteoarthritis of left knee Spinal stenosis Surgical History H/O bilateral salpingo-oophorectomy History of appendectomy History of bilateral tubal ligation History of breast biopsy R BREAST-BENIGN History of bronchoscopy TO DX SARCODOSIS 2013 History of carpal tunnel release RT/LEFT History of section X4 History of colonoscopy History of esophagogastroduodenoscopy (EGD) History of myringotomy History of right knee joint replacement S/P cervical spinal fusion GOOD ROM S/P lumbar spinal fusion S/P partial hysterectomy [place] teeth removed Family History Brother Diabetes Colorectal cancer Mother Diabetes Stomach cancer Sarcoidosis Lymphoma Father Coronary heart disease Other Cancer Heart disease Hypertension No family history of adverse response to anesthesia No family history of bleeding disorder Social History Smoking Status: Never smoker Second Hand Exposure: No; Hx Alcohol Use: No Hx Substance Use: No Preferred Language: Romanian Communication Ability: Effective Visual Impairment: No Limitations Kick Boxer Required: No Beliefs That Will Affect Care: None marital status: Current Living Situation: Spouse Feels Safe at Home: Yes Assistive Devices: Cane and Walker Review of Systems Review of Systems: Constitutional: Reports night sweats over the past week; no fever or chills at home, general weakness, fatigue, or myalgias Eyes: No diplopia, no worsening or blurred vision ENT: normal hearing, no trouble swallowing Respiratory: No cough, sputum, dyspnea at rest or on exertion Cardiovascular: No chest pain, tightness or palpitations Abdomen: No pain, nausea, vomiting, diarrhea or constipation : Denies bowel bladder incontinence or retention dysuria, hematuria Musculoskeletal: Low back pain since later last week with progressive weakness in bilateral legs, right worse than left and numbness/tingling; no groin or rectum pain/numbness Neurologic: No weakness, numbness/tingling, or balance problems Psychiatric: No anxiety or depression Skin: No rash or itch Physical Exam Physical Exam: General: awake, alert, no apparent distress Head: Normocephalic, atraumatic ENT: PERRL, EOMI, no pharyngeal exudate, mucous membranes moist Chest: Clear to auscultation, on room air, no adventitious breath sounds Cardiac: Regular rate and rhythm, no murmur, no JVD, normal peripheral pulses, good capillary refill Abdominal: NABS x 4 quadrants, soft, nontender to palpation, no rebound, guarding or tenderness Extremities: Sensation intact in bilateral lower extremities, both with decreased sensation around the knee, she is s/p bilateral TKA and this is not necessarily new for her; sensation intact on right but decreased when compared to left; strength intact bilaterally Psych: Normal mood and affect Neuro: AAO x 3, strength intact bilaterally and rated 5/5, no motor deficits, speech is clear, no peripheral sensory deficits Skin: no rash or erythema Results & Data Results & Data ([place]) Vital Signs (Past 12 Hours) Vital Signs Temp Pulse Pulse Resp BP BP Pulse Ox 08/17/22 12:16 78 18 142/74 H 98 08/17/22 12:08 79 18 142/74 H 98 08/17/22 09:00 77 18 08/17/22 08:30 77 20 130/84 100 08/17/22 08:30 76 20 100 08/17/22 08:00 83 15 96 08/17/22 08:00 140/87 08/17/22 07:56 86 17 97 08/17/22 07:42 95 08/17/22 07:19 36.5 C 93 H 14 129/79 98 O2 Del Method 08/17/22 12:16 08/17/22 12:08 Room Air 08/17/22 09:00 08/17/22 08:30 08/17/22 08:30 08/17/22 08:00 08/17/22 08:00 08/17/22 07:56 08/17/22 07:42 Room Air 08/17/22 07:19 Room Air Laboratory Results Abnormal lab results 08/17/22 08/17/22 Range/Units 08:10 08:10 WBC 3.99 L (4.8-10.8) K/ul BUN/Creatinine Ratio 23.0 H (10-20) Glucose 107 H (70-99(Fasting)) mg/dl Diagnostic Findings Lumbar Spine MRI 08/17/22 07:34 MR lumbar spine wo/w con CLINICAL HISTORY: severe low back pain, hx of spine surgery TECHNIQUE: 3 plane localizer images, sagittal T2, sagittal T1, sagittal STIR, axial T1, axial T2 along with postcontrast axial T1 and sagittal T1 fat- saturated sequences were obtained of the lumbar spine, before and after intravenous administration of 12 mL of MultiHance. Comparison: Comparison is made to MRI lumbar spine 09/11/2015 FINDINGS: Posterior fixation hardware is seen spanning L2-L3. Degenerative changes are noted in the discs and vertebral bodies. L1-L2: There is a broad-based posterior disc bulge with mild canal stenosis. L2-L3: No significant abnormality. L3-L4: No significant abnormality. L4-L5: Degenerative changes are seen resulting in mild bilateral neural foraminal stenosis. L5-S1: No significant abnormality. The spinal ligaments are intact, without evidence of disruption or abnormal signal intensity. The spinal cord is normal in signal intensity and there is no evidence of cord contusion. There is no evidence of an extradural, intradural, extramedullary or intramedullary lesion. Visualized soft tissues are normal. IMPRESSION: Interval revision of hardware with L2-L3 posterior fixation hardware seen, status post removal of L3-L4 hardware. There is interval development of mild canal stenosis in the L1-L2 level with mild bilateral neural foraminal stenosis secondary to posterior disc bulge. Mild bilateral neural foraminal stenosis is also seen at L4-L5. ACT 112: Negative or not required by law. Electronically signed by: Willard Velez M.D. 08/17/2022 10:36 AM Lumbar Spine X-Ray 08/17/22 07:35 XR lumbar spine min 4V routine CLINICAL HISTORY: low back pain, hx of back surgery TECHNIQUE: 5 views of the lumbar spine were obtained. Comparison: Comparison is made to lumbar spine radiographs 05/30/2014 FINDINGS: Posterior fixation hardware is seen. There is interval removal of L4-L5 fixation hardware. There is no perihardware lucency or hardware fracture. Degenerative changes are seen in the lumbar spine. The alignment is normal. No soft tissue abnormality is seen. IMPRESSION: Degenerative changes as above without acute fracture or subluxation. Fixation hardware as above. ACT 112: Negative or not required by law. Electronically signed by: Willard Velez M.D. 08/17/2022 9:00 AM Abdomen/Pelvis CT 08/17/22 11:02 CT abd pelvis IV con only CLINICAL HISTORY: low back pain radiating into abdomen TECHNIQUE: Helical axial images of the abdomen and pelvis were obtained and displayed. Automated dose lowering techniques and/or adjustment according to patient size were utilized for this exam. This exam was performed with intravenous contrast. CT DOSE: 1063.30 mGycm COMPARISON: Comparison is made to CT abdomen pelvis 731 FINDINGS: Lower chest: No acute abnormality Liver: Unremarkable. No focal lesions are seen. Gallbladder and biliary tree: No calcified gallstones. Normal caliber wall. No intra- or extrahepatic biliary ductal dilation. Pancreas: Unremarkable, no focal lesions. Spleen: Unremarkable. Adrenals: Unremarkable. Kidneys and ureters: Bilateral parapelvic cysts are seen. No evidence of hydronephrosis or hydroureter. Bladder: Hyperdense material is noted in the bladder which may reflect excreted contrast. Reproductive organs: Patient is status post hysterectomy. Bowel: Unremarkable. Lymph nodes Retroperitoneal: Unremarkable. Pelvic: Unremarkable. Mesenteric: Unremarkable. Peritoneum: Surgical clips are noted in the lower abdomen. Vessels: Unremarkable. Abdominal wall: Unremarkable. Bones: Posterior fixation hardware and disc prostheses are noted in the lumbar spine. IMPRESSION: No acute abnormalities. ACT 112: Negative or not required by law. Electronically signed by: Willard Velez M.D. 08/17/2022 12:23 PM ECG Additional Comments: Normal sinus rhythm Normal ECG When compared with ECG of 03-JUL-2022 11:20, No significant change was found. Supervising Physician Co-Signing Physician Notes During face to face encounter, I obtained a history of present illness and performed a physical examination. I reviewed above note and agree with it. D/W [facility] [place] and patient plan of care. Will consult Dr. Quezada for her lower back pain. Pain management as noted above. PG Care Time/CCT Total # of Minutes Spent Total Time Spent with Patient: Total time spent is greater than 50% in coordination of care (as documented) at patient's floor/unit and/or counseling patient: Coding Level of Care Code INT OBSERVATION CARE 70M LVL 3 Diagnoses Acute exacerbation of chronic low back pain M54.50; G89.29 Diabetes E11.9 Hx of sarcoidosis Z86.2 Hypothyroidism E03.9 Anxiety F41.9
[2022-08-17] MEDS ORDERED: clonazePAM 0.25 MG TAB PO PRN (18:10)
[2022-08-17] MEDS ORDERED: HYDROmorphone INJ 0.5 MG/0.5 ML SYR IV PRN (18:10)
[2022-08-17] MEDS ORDERED: SODIUM CHLORIDE 0.65% NA SOLN 45 ML (OCEAN) PRN (18:10)
[2022-08-17] MEDS ORDERED: POLYETHYLENE (MIRALAX) 17 GM PACK PO PRN (18:10)
[2022-08-17] MEDS ORDERED: ALUMINUM/MAGNESIUM SUSP 30 ML UDC PO PRN (18:10)
[2022-08-17] MEDS ORDERED: CELECOXIB 100 MG CAP PO PRN (18:10)
[2022-08-17] MEDS ORDERED: BENZONATATE 100 MG CAPSULE PO PRN (18:10)
[2022-08-17] MEDS: HYDROmorphone INJ 0.5 MG/0.5 ML SYR IV PRN ×2 (19:00→22:15)
[2022-08-17] MEDS: ONDANSETRON INJ 2 MG/ML 2 ML VIAL IV PRN (19:12)
--- NOTE | 2022-08-18 05:37 | Electrocardiogram Report ---
Test Reason : Blood Pressure : / mmHG Vent. Rate : 084 BPM Atrial Rate : 084 BPM P-R Int : 164 ms QRS Dur : 072 ms QT Int : 374 ms P-R-T Axes : 005 032 016 degrees QTc Int : 441 ms Poor data quality, interpretation may be adversely affected Normal sinus rhythm Normal ECG When compared with ECG of 03-JUL-2022 11:20, No significant change was found Confirmed by Tim Cervantes ([id number]) on 08/18/2022 5:36:41 AM Referred By: REFERRED SELF Confirmed By:Tim Cervantes
[2022-08-18] MEDS ORDERED: LEVOTHYROXINE SODIUM 50 MCG TABLET PO SCH (06:30)
[2022-08-18] MEDS: ACETAMINOPHEN 500 MG TAB PO PRN ×2 (06:36→14:47)
[2022-08-18] MEDS: ONDANSETRON INJ 2 MG/ML 2 ML VIAL IV PRN ×2 (07:44→14:46)
[2022-08-18] MEDS: KETOROLAC 30 MG/ML VIAL IV PRN ×2 (07:51→19:19)
[2022-08-18] MEDS ORDERED: [UNRECOGNIZED DRUG - OTHER] PO SCH (09:00)
[2022-08-18] MEDS ORDERED: KRILL OM3 DHA EPA OM6 LIP ASTX PO SCH (09:00)
[2022-08-18] MEDS: CHOLECALCIFEROL 1,000 UNITS 25 MCG TAB PO SCH (09:22)
[2022-08-18] MEDS: LIDOCAINE 5% 1 PATCH TD SCH (09:23)
[2022-08-18] MEDS: VITAMIN B COMPLEX TAB PO SCH (09:24)
[2022-08-18] MEDS: LORATADINE 10 MG TAB PO SCH (09:24)
[2022-08-18] MEDS: methylPREDNISolone 60 MG in SYRINGE 0 ML IV SCH ×3 (09:25→20:00)
--- NOTE | 2022-08-18 14:20 | Hospitalist Progress Note ---
Date of Service August 18, 2022 Assessment & Plan (1) Acute exacerbation of chronic low back pain: Plan: Imaging results noted. She is now on intravenous Solu-Medrol. Orthopedic consultation pending. (2) Diabetes: Plan: Currently diet/exercise controlled. ADA diet. Sliding scale insulin as n eeded. A1c checked last summer, was 5.4%. (3) Hx of sarcoidosis: Plan: single flare in 2012. Stable. (4) Hypothyroidism: Plan: Stable. Continue levothyroxine 50 mcg daily. (5) Anxiety: Plan: Continue Klonopin 0.25 mg at night as needed. Plan Anticipate eventual discharge to home. Admission and Anticipated Discharge Date Admission Date: August 17, 2022 Subjective Alert and oriented. No acute distress. is at the bedside. Orthopedic evaluation is pending. She is complaining of some right calf pain but no significant clinical findings. Venous Doppler of the right lower extremity is pending. She is currently on intravenous Solu-Medrol. Review of Systems Review of Systems: Constitutional-no fever or chills ENT-no blurred vision, no double vision, no epistaxis, no sore throat Respiratory-no cough, no wheezing, no shortness of breath Cardiac-no palpitations, no chest pain, no syncope GI-no nausea, vomiting, diarrhea, melena, hematochezia -no urinary retention, no urinary incontinence, no dysuria, no hematuria Musculoskeletal-lumbar discomfort. No muscle tenderness Skin-no bruising, no rashes, no pruritus Neuro-no isolated weakness, no paresthesia, no weakness Psych-no depression, no anxiety Physical Exam Physical Exam: General-alert and oriented x3, no fevers, no chills HEENT-head atraumatic and normocephalic, pupils equal and reactive to light, extraocular muscles intact Neck-no lymphadenopathy or thyromegaly, trachea midline Chest-clear to auscultation percussion. No rales wheezing or rhonchi Cardiac-regular rate and rhythm, normal S1 and S2, no murmurs Abdomen-normal bowel sounds, nontender, no hepatosplenomegaly Extremities-no cyanosis, clubbing, or edema Neuro-cranial nerves II through XII intact, motor and sensory function within normal limits, strength symmetrical , no focal deficits Psych-normal affect, normal mood Results & Data Results & Data ([facility]) Vital Signs (Past 12 Hours) Vital Signs Temp Pulse Resp BP BP Pulse Ox O2 Del Method 08/18/22 07:35 36.8 C 83 19 115/74 115/74 94 Room Air Laboratory Results 08/17/22 08:10 08/17/22 08:10 PG Care Time/CCT Total # of Minutes Spent Total Time Spent with Patient: Total time spent is greater than 50% in coordination of care (as documented) at patient's floor/unit and/or counseling patient: Coding Level of Care Code 26781 Subseq Hosp Care Lvl 3 Diagnoses Acute exacerbation of chronic low back pain M54.50; G89.29 Diabetes E11.9 Hx of sarcoidosis Z86.2 Hypothyroidism E03.9 Anxiety F41.9
--- NOTE | 2022-08-18 14:33 | Ultrasound Report ---
RIGHT LOWER EXTREMITY VENOUS DOPPLER HISTORY: Right calf pain COMPARISON STUDY: None. FINDINGS: There is normal compressibility, flow, and augmentation within the right lower extremity de ep venous system. IMPRESSION: No DVT within the right lower extremity ACT 112: Negative or not required by law. Electronically signed by: Ernst Arredondo M.D. 08/18/2022 2:31 PM
[2022-08-18] MEDS: HYDROmorphone INJ 0.5 MG/0.5 ML SYR IV PRN (21:43)
[2022-08-18] MEDS ORDERED: CARBOHYDRATES FOR HYPOGLYCEMIA PO PRN (21:45)
[2022-08-18] MEDS ORDERED: GLUCOSE 40% GEL 15 GM TUBE PO PRN (21:45)
[2022-08-18] MEDS ORDERED: DEXTROSE 50% 50 ML SYRINGE IV PRN (21:45)
[2022-08-18] MEDS ORDERED: GLUCAGON FOR INJ 1 MG VIAL SQ PRN (21:45)
[2022-08-18] MEDS ORDERED: GLUCOSE 10 TAB/TUBE PO PRN (21:45)
[2022-08-18] MEDS ORDERED: INSULIN ASPART PER UNIT SC STA (21:45)
--- NOTE | 2022-08-18 21:49 | Communication Note ---
Date of Service: August 18, 2022 bsg 191. receiving IV steroids. Adding low dose insulin orders. lantus 5 HS and loose SSI. check a1c in AM
[2022-08-18] MEDS ORDERED: LANTUS PER UNIT CHARGE SQ SCH (21:50)
[2022-08-19] MEDS: ACETAMINOPHEN 500 MG TAB PO PRN ×2 (00:07→06:29)
[2022-08-19] MEDS: methylPREDNISolone 60 MG in SYRINGE 0 ML IV SCH ×2 (02:07→09:05)
[2022-08-19] MEDS: KETOROLAC 30 MG/ML VIAL IV PRN ×2 (02:07→09:07)
[2022-08-19] MEDS ORDERED: LEVOTHYROXINE SODIUM 75 MCG TABLET PO SCH (06:30)
[2022-08-19] MEDS ORDERED: INSULIN ASPART PER UNIT SC SCH (07:30)
--- NOTE | 2022-08-19 07:49 | Orthopedic Consultation ---
Date of Consultation August 19, 2022 Assessment & Plan (1) Acute exacerbation of chronic low back pain: I have reviewed the patient's MRI. Demonstrates no evidence of adjacent level disease from the previous areas of fusion. There is no gross neural compression or abnormality. Plan at this time encourage her to continue with light activity as tolerated walk for exercise. She stable for discharge per orthopedics. History of Present Illness Reason for Consultation: Back pain Attending Physician: Edgar Mejía MD History of Present Illness This is a 61-year-old female known to me the presents the emergency room with marked increase in back pain. She denies any significant leg pain numbness or weakness. She does have a history of recent COVID in June. She had a rebound COVID as well. This created significant strain and global body ache. This morning she states she is markedly more comfortable after course of steroids. She is up and ambulating without difficulty. She denies any numbness or tingling or weakness into the lower extremities. Allergies Allergy/AdvReac Type Severity Reaction Status Date / Time hydroxyzine Allergy Intermediate HYPERACTIVE Verified 05/03/22 08:33 levofloxacin Allergy Mild RASH Verified 05/03/22 08:33 Quinolones Allergy Mild RASH Verified 05/03/22 08:33 wheat Allergy Mild GI Verified 05/03/22 08:33 SENSITIVITY diphenhydramine AdvReac Intermediate "KEEPS ME Verified 05/03/22 08:33 AWAKE INSTEAD OF MAKING ME SLEEPY" prednisone AdvReac Intermediate PSYCHOTIC Verified 05/03/22 08:33 COMPLICATIONS tramadol AdvReac Intermediate "OUT OF Verified 05/03/22 08:33 BODY" Sulfa (Sulfonamide AdvReac Mild GI UPSET Verified 05/03/22 08:33 Antibiotics) Home Medications Medication Instructions Recorded Confirmed Type clonazepam 0.5 mg tablet 0.25 mg PO HS PRN Anxiety 07/17/18 08/17/22 History loratadine 10 mg capsule 10 mg PO QAM 07/17/18 08/17/22 History sodium chloride 0.65 % nasal spray 1 spray intranasal Q3H PRN Runny 07/17/18 08/17/22 History aerosol (Saline Nasal) Nose vitamin B complex 1 cap PO QAM 07/17/18 08/17/22 History krill 1 cap PO QAM 08/30/18 08/17/22 History [id number]-[id number]-glv-astax 1,500 mg-165 mg-67.5 mg capsule (Krill Oil ([place] 3 and 6)) levothyroxine 50 mcg tablet 50 mcg PO UD 07/25/19 08/17/22 History cholecalciferol (vitamin D3) 25 2,000 units PO QAM 06/01/20 08/17/22 History mcg (1,000 unit) capsule (Vitamin D3) celecoxib 100 mg capsule (Celebrex) 100 mg PO DAILY PRN Pain 03/08/21 08/17/22 History benzonatate 100 mg capsule 100 mg PO TID PRN cough #20 caps 07/03/22 08/17/22 Rx Patient History Medical History Anxiety Hx of sarcoidosis NO RECENT ISSUES. SINGLE FLARE 2012. Hypothyroidism Morbid obesity Osteoarthritis Osteoarthritis of left knee Spinal stenosis Surgical History H/O bilateral salpingo-oophorectomy History of appendectomy History of bilateral tubal ligation History of breast biopsy R BREAST-BENIGN History of bronchoscopy TO DX SARCODOSIS 2013 History of carpal tunnel release RT/LEFT History of section X4 History of colonoscopy History of esophagogastroduodenoscopy (EGD) History of myringotomy History of right knee joint replacement S/P cervical spinal fusion GOOD ROM S/P lumbar spinal fusion S/P partial hysterectomy [place] teeth removed Family History Brother Diabetes Colorectal cancer Mother Diabetes Stomach cancer Sarcoidosis Lymphoma Father Coronary heart disease Other Cancer Heart disease Hypertension No family history of adverse response to anesthesia No family history of bleeding disorder Social History Smoking Status: Never smoker Second Hand Exposure: No; Hx Alcohol Use: No Hx Substance Use: No Preferred Language: Cameroonian Communication Ability: Effective Visual Impairment: No Limitations Retort Unloader Required: No Beliefs That Will Affect Care: None marital status: Current Living Situation: Spouse Feels Safe at Home: Yes Safety Concerns: Feels Safe At This Time Assistive Devices: Cane and Walker Assistive Devices Comment: shoe horn, sock puller Physical Exam Physical Exam: On exam she is in the chair at bedside. She appears quite comfortable. Is eccentric to testing. Results & Data ([facility]) Vital Signs (Past 12 Hours) Vital Signs Temp Pulse Resp BP Pulse Ox O2 Del Method 08/18/22 21:23 36.6 C 80 16 126/74 94 Room Air
[2022-08-19] MEDS: ONDANSETRON INJ 2 MG/ML 2 ML VIAL IV PRN (07:58)
[2022-08-19 08:01] LABS: Estimated Average Glucose 111 mg/dl; Hemoglobin A1C 5.5 % (4.5-5.6)
[2022-08-19] MEDS: CHOLECALCIFEROL 1,000 UNITS 25 MCG TAB PO SCH (09:04)
[2022-08-19] MEDS: LORATADINE 10 MG TAB PO SCH (09:04)
[2022-08-19] MEDS: VITAMIN B COMPLEX TAB PO SCH (09:04)
[2022-08-19] MEDS: LIDOCAINE 5% 1 PATCH TD SCH (09:05)
--- NOTE | 2022-08-19 10:46 | Discharge Summary ---
Date of Service August 19, 2022 Admission HPI Per Admitting Provider Beryl Villanueva is a 61-year-old female with past medical history significant for hypothyroidism, diabetes, sarcoidosis, morbid obesity, and multiple spinal surgeries who is presenting today with back pain. Patient is 4 years s/p lumbar decompression and fusion with Dr. Quezada. She has been doing well up until a few days ago when she developed low back pain that radiates into her abdomen and causes numbness and tingling down both of her legs. Legs are affected, but right side seems worse than the left. Her legs feel weak and this is definitely new for her. She has not lost control of bowel or bladder, denies any groin numbness, and has been able to ambulate however it is painful. He has not had any fever or chills, chest pain, shortness of breath, palpitations, nausea, vomiting, urinary symptoms. She is moving her bowels normally for her. Upon presentation to the ED, her vital signs have been within normal limits and stable. She has a chronically low WBC, today is 3.9. Labs are otherwise all unremarkable, UA without evidence of infection. Lyme IgM and IgG negative, Babesia and anaplasmosis pending. Lumbar spine MRI shows a broad-based posterior disc bulge with mild canal stenosis at L1-L2 level. There is mild bilateral neural foraminal stenosis at L4-L5. Hardware is noted at L2-L3. No evidence of fracture or subluxation. CT of abdomen pelvis was obtained given pain radiating into the abdomen, it is unremarkable for any acute abnormalities or vascular disease. In the ED, she has received several doses of Dilaudid and continues to be quite uncomfortable. Principal Diagnosis Acute on chronic back pain, history of lumbar degenerative disc disease and multiple surgeries, on DVT right calf pain Discharge Exam General-alert and oriented x3, no fevers, no chills HEENT-head atraumatic and normocephalic, pupils equal and reactive to light, extraocular muscles intact Neck-no lymphadenopathy or thyromegaly, trachea midline Chest-clear to auscultation percussion. No rales wheezing or rhonchi Cardiac-regular rate and rhythm, normal S1 and S2, no murmurs Abdomen-normal bowel sounds, nontender, no hepatosplenomegaly Extremities-no cyanosis, clubbing, or edema Neuro-cranial nerves II through XII intact, motor and sensory function within normal limits, strength symmetrical , no focal deficits Psych-normal affect, normal mood Discharge Data Allergies Allergy/AdvReac Type Severity Reaction Status Date / Time hydroxyzine Allergy Intermediate HYPERACTIVE Verified 05/03/22 08:33 levofloxacin Allergy Mild RASH Verified 05/03/22 08:33 Quinolones Allergy Mild RASH Verified 05/03/22 08:33 wheat Allergy Mild GI Verified 05/03/22 08:33 SENSITIVITY diphenhydramine AdvReac Intermediate "KEEPS ME Verified 05/03/22 08:33 AWAKE INSTEAD OF MAKING ME SLEEPY" prednisone AdvReac Intermediate PSYCHOTIC Verified 05/03/22 08:33 COMPLICATIONS tramadol AdvReac Intermediate "OUT OF Verified 05/03/22 08:33 BODY" Sulfa (Sulfonamide AdvReac Mild GI UPSET Verified 05/03/22 08:33 Antibiotics) Consultations 08/17/22 13:14 ED Decision to Admit Stat 08/17/22 18:10 Consult Orthopedic Surgery Routine Ordered Studies 08/17/22 07:34 MR lumbar spine wo/w con Stat 08/17/22 11:02 CT abd pelvis IV con only Stat 08/18/22 14:00 US venous doppler LE RT Urgent Hospital Course (1) Acute exacerbation of chronic low back pain: Imaging results noted. While hospitalized with intravenous Solu-Medrol. Home on prednisone taper. Orthopedic consultation appreciated. (2) Diabetes: Currently diet/exercise controlled. ADA diet. Sliding scale insulin as needed. A1c checked last summer, was 5.4%. (3) Hx of sarcoidosis: single flare in 2012. Stable. (4) Hypothyroidism: Stable. Continue levothyroxine 50 mcg daily. (5) Anxiety: Continue Klonopin 0.25 mg at night as needed. Plan Discharge to home today, August 19, on prednisone taper . Also give oxycodone 5 mg to use as needed for pain. Total Time Total Time Spent Total Time Spent (In Minutes): 35 minutes Discharge Plan Discharge Items Patient Disposition: Home - Self-Care Reason For Visit: INTRACTABLE BACK PAIN Discharge Diagnosis: Acute exacerbation chronic lumbar pain Condition on Discharge: Good Activity: Resume your previous activity Non-emergency contact: Primary Care Provider Call non-emergency contact if: you have any medication questions Follow-up/Referrals: Anali Mathias CRNP [Primary Care Provider] - Diet: Carb Consistent or DM2 and Heart Healthy Addtl Attending Provider Instructions: Take the prednisone tapering dose as directed. Use oxycodone as needed for any back pain Pending Studies at Discharge: No Stand-Alone Forms: My [facility] [employer], Smoking Cessation Medications and DC Order Prescriptions: New prednisone 10 mg tablet See Rx Instructions .ROUTE .COMPLEX Qty: 18 0RF Rx Instructions: 10 mg orally 3 times a day for 3 days then 10 mg twice a day for 3 days then 10 mg daily for 3 days then stop oxycodone 5 mg capsule 5 mg PO Q6H PRN (Reason: pain) Qty: 14 0RF Continued cholecalciferol (vitamin D3) [Vitamin D3] 25 mcg (1,000 unit) capsule 2,000 units PO QAM clonazepam 0.5 mg Tablet 0.25 mg PO HS PRN (Reason: Anxiety) vitamin B complex Capsule 1 cap PO QAM Saline Nasal 0.65 % Aerosol,[place] 1 spray INTRANASAL Q3H PRN (Reason: Runny Nose) Label Comments: " i have not used that in awhile" loratadine 10 mg Capsule 10 mg PO QAM levothyroxine 50 mcg tablet 50 mcg PO UD Rx Instructions: TAKES 1 TAB Q2D AND 1.5 TAB Q2D (ALTERNATE DOSES) Krill Oil ([place] 3 and 6) 1,500-165-67.5 mg Capsule 1 cap PO QAM celecoxib [Celebrex] 100 mg Capsule 100 mg PO DAILY PRN (Reason: Pain) benzonatate 100 mg capsule 100 mg PO TID PRN (Reason: cough) Qty: 20 0RF Discharge Orders: Discharge Order (Routine); Ordered 08/19/22 Ordered By: Edgar Mejía Admission Data Admit Date/Time: 08/17/22 14:25 Attending Provider: Edgar Mejía Admit Provider: Marcos Madsen Primary Care Provider: Anali Mathias Other Providers: Marcos Madsen ; Kelton Quezada Coding Level of Care Code D/C DAY MANAGEMENT >30 MINS Diagnoses Acute exacerbation of chronic low back pain M54.50; G89.29 Diabetes E11.9 Hx of sarcoidosis Z86.2 Hypothyroidism E03.9 Anxiety F41.9
[2022-08-20 18:07] LABS: Babesia microti DNA Not Detected (Not Detected)
[2022-08-23 14:09] LABS: Ehrlichia chaff DNA Bld Negative (Negative)
== END 2022-08-19 13:12 | disposition home or self-care (01) ==
LOC: ED 07:15 → EDINP 07:15 → SUATTDRO 14:25 → 3N 18:10

== ENCOUNTER 2022-11-10 08:46 | Observation (INO) ==
[2022-11-10 09:31] LABS: Appearance Urine Clear (Clear); Bilirubin Urine Negative (Negative); Blood Urine Negative (Negative); Color Urine Dark Yellow; Glucose Urine UA Negative (Negative); Ketones Urine Negative (Negative); Leukocyte Esterase Urine Negative (Negative); Nitrite Urine Negative (Negative); Protein Urine Negative (Negative); Specific Gravity Urine 1.025 (1.000-1.030); Urobilinogen Urine Negative (Negative)
[2022-11-10] MEDS ORDERED: HYDROmorphone INJ 1 MG/ML SYRINGE IV STA (09:38)
[2022-11-10] MEDS ORDERED: dexAMETHasone**PF** 10 MG/ML VIAL IV ONE (09:38)
--- NOTE | 2022-11-10 09:44 | Emergency Department Note ---
Impression & Plan Acute right-sided low back pain with right-sided sciatica, Right leg weakness, Urinary incontinence ED Provider Note Name: CHICHI COTTON Age: 62 Sex: F Arrives Via: Walk-In Informant: Patient, ED Provider: Dequan Miller MD Chief Complaint: Low back pain Impression: As per impressions above Medical Decision Makin-year-old female with a previous history of GERD, claudication, migraine, anxiety, obesity, PE amongst multiple other comorbidities who does have a history of multiple surgeries including about 5 years ago a lumbar spinal fusion. Patient notes she had injured her back about 5 months ago requiring hospitalization. She then slipped 2 weeks ago twisting her back. She was initially seen in the ER with unremarkable work-up discharged home. Over the last few days worsening pain increasing pain down her right leg and now reporting loss of bladder control as well as some leg weakness and difficulty ambulating. She was given IV narcotics on arrival and given the reported weakness previous work-up a was felt indicated given the neurologic reports. She appears comfortable when lying in bed but when she gets up to go to the bathroom with assist she complains of significant pain. We did try Toradol IV as well as IV Tylenol without much success. She was given another 0.5 mg IV Dilaudid. I will note that her MRI report does not show any acute surgical issues and some nonspecific neuraminal foramen narrowing which may be the cause of her discomfort. She was given IV steroids initially as well. I not feel that she has an emergent surgical need at this time. She does seem to be getting up and ambulating better. On discussion on discharge and the patient she is adamant she cannot get home given she needs to get upstairs and her states it is clear that she would not be able to go home. I discussed trying to get her home with pain meds and oral steroids and they declined. I discussed the case with the hospitalist for further management given unable to come up with a good outpatient management plan at this time. Prior Medical Record and Triage/Nursing Notes reviewed by Me I personally reviewed recent hospitalization in July 2022 records during her hospitalization for acute back pain with no concerning findings. Differentials:Disc herniation, sciatica, cauda equina, cord compression, fracture, discitis, intra-abdominal/pelvis cause, arterial issue, musculoskeletal amongst many other pathologies considered Vital Signs: reviewed and remarkable for no significant abnormalities Interventions: Dilaudid 1.0 mg IV, Dilaudid 0.5 mg IV, Toradol 30 mg IV, acetaminophen 1 g IV, Zofran 4 mg IV, Decadron 10 mg IV Labs:Reviewed and remarkable for no significant abnormalities Imaging:MRI imaging of the lumbar spine reveals no evidence of cord compression and does show some foraminal narrowing with disc bulge similar to previous MRI as per radiologist Consults:Dr. Higuera of [place] Hospitalist Plan: Disposition:Hospitalization. Condition: Good History of Present Illness:62-year-old female arrives for evaluation of back pain. Patient notes a long history of back issues including previous lumbar fusion about [address] Quezada. Patient states that she had been admitted a few months ago due to intractable pain which eventually resolved. A few weeks ago she was walking on ice slipped and fell awkwardly. Did not specifically fall on her back but noted increasing low back pain since then. Its been rapidly worsening over the last week. She was seen earlier in the month for the back pain at that time it seemed to be doing well with Motrin and Tylenol. She continued Tylenol and Motrin the last few days but pain is rapidly worsened overnight. She has pain is now radiating down her left right leg. She has right leg numbness and heaviness. She states she has weakness in the leg and is unable to walk. She is also now having urinary incontinence and some bowel incontinence over the last 24 hours. Denies any urinary burning, frequency. She is had no recent fevers, chills, nausea, vomiting, syncope, chest pain, shortness of breath or other concerning signs or symptoms. Patient denies any new swelling in her legs. And exertion/movement seems to make the leg pain worse. No discoloration or rashes noted. Past Medical History:Extensive see as per chart. Home Medications:See Below Allergies:See Below Vitals:Blood Pressure: 114/73, Pulse 88, RR 18, T 36.8C, O2 98% on RA Physical Exam: GENERAL: Patient is very uncomfortable appearing and in moderate distress. EYES: No scleral icterus, unremarkable pupils. GASTROINTESTINAL: Abdomen soft, non-tender, no peritonitis.Bowel sounds positive.No masses appreciated. BACK: No midline tenderness, no CVA tenderness. Tenderness palpation of the right lower back into the right buttock. EXTREMITIES: Normal motion all extremities, no cyanosis, no edema. NEUROLOGIC: Alert and oriented, patient unable to raise right leg due to amount of pain and no specific focal weakness appreciated. Perceived decreased sensation throughout right leg. SKIN: No rash, no jaundice, no diaphoresis. PSYCH: Appropriate GCS: 15 ED Course: Times/Reassessments: Patient stable she continues to complain of pain with any attempts at ambulation and does not feel she is capable of going home at this time given the amount of pain she is having with ambulation. Dequan Miller MD Past Med/Surg History Medical History Anxiety Diabetes Hx of sarcoidosis NO RECENT ISSUES. SINGLE FLARE 2013. Hypothyroidism Morbid obesity Osteoarthritis Osteoarthritis of left knee Spinal stenosis Surgical History H/O bilateral salpingo-oophorectomy History of appendectomy History of bilateral tubal ligation History of breast biopsy R BREAST-BENIGN History of bronchoscopy TO DX SARCODOSIS 2013 History of carpal tunnel release RT/LEFT History of section X4 History of colonoscopy History of esophagogastroduodenoscopy (EGD) History of myringotomy History of right knee joint replacement Hx of spinal surgery S/P cervical spinal fusion GOOD ROM S/P lumbar spinal fusion S/P partial hysterectomy [place] teeth removed Family History Brother Diabetes Colorectal cancer Mother Diabetes Stomach cancer Sarcoidosis Lymphoma Father Coronary heart disease Other Cancer Heart disease Hypertension No family history of adverse response to anesthesia No family history of bleeding disorder Social History Smoking Status: Never smoker Second Hand Exposure: No; Hx Alcohol Use: No Hx Substance Use: No Preferred Language: Welsh Communication Ability: Effective Visual Impairment: No Limitations Cell Installer Required: No Beliefs That Will Affect Care: None marital status: Current Living Situation: Spouse Feels Safe at Home: Yes Assistive Devices: Cane and Walker Allergies Allergies Allergy/AdvReac Type Severity Reaction Status Date / Time hydroxyzine Allergy Intermediate HYPERACTIVE Verified 11/10/22 15:13 levofloxacin Allergy Mild RASH Verified 11/10/22 15:13 Quinolones Allergy Mild RASH Verified 11/10/22 15:13 wheat Allergy Mild GI Verified 11/10/22 15:13 SENSITIVITY diphenhydramine AdvReac Intermediate "KEEPS ME Verified 11/10/22 15:13 AWAKE INSTEAD OF MAKING ME SLEEPY" prednisone AdvReac Intermediate PSYCHOTIC Verified 11/10/22 15:13 COMPLICATIONS tramadol AdvReac Intermediate "OUT OF Verified 11/10/22 15:13 BODY" Sulfa (Sulfonamide AdvReac Mild GI UPSET Verified 11/10/22 15:13 Antibiotics) Home Meds Home Medications Medication Instructions Recorded Confirmed clonazepam 0.5 mg tablet 0.5 mg PO HS 07/17/18 11/10/22 loratadine 10 mg capsule 10 mg PO QAM 07/17/18 11/10/22 vitamin B complex 1 cap PO QAM 07/17/18 11/10/22 levothyroxine 50 mcg tablet 50 mcg PO UD 07/25/19 11/10/22 cholecalciferol (vitamin D3) 25 2,000 units PO QAM 06/01/20 11/10/22 mcg (1,000 unit) capsule (Vitamin D3) celecoxib 100 mg capsule (Celebrex) 100 mg PO DAILY PRN Pain 03/08/21 11/10/22 bupropion HCl 75 mg tablet 75 mg PO BID 11/10/22 11/10/22 cyclobenzaprine 5 mg tablet 5 mg PO HS 11/10/22 11/10/22 diclofenac sodium 50 mg 50 mg PO Q8 11/10/22 11/10/22 tablet,delayed release mirtazapine 15 mg tablet 15 mg PO HS 11/10/22 11/10/22 Previous Rx's Medication Instructions Recorded oxycodone 5 mg tablet 5 mg PO Q4H PRN pain #15 tabs 10/26/22 Results & Data (ED) Vital Signs Vital Signs - 24 hr 11/10/22 09:05 11/10/22 10:01 11/10/22 12:39 Temperature 36.8 C Temperature Source Oral Pulse Rate 88 Pulse Rate [Right Finger] 77 83 Pulse Rhythm Regular Pulse Strength Normal Respiratory Rate 18 20 19 Respiratory Effort / Characteristics Non-Labored Spontaneous Non-Labored Respiratory Depth Normal Normal Respiratory Pattern Regular Regular Blood Pressure 114/73 Blood Pressure [Right Arm] 134/74 103/56 L Blood Pressure Mean 86 Blood Pressure Mean [Right Arm] 94 71 Blood Pressure Position Sitting Pulse Oximetry 98 98 97 Oxygen Delivery Method Room Air Room Air Room Air Sepsis Recent Fever Within 48 Hours No Sepsis New/Unexplained Change in Mental Status No Sepsis Action Taken by Nursing No Action Required 11/10/22 14:23 Temperature Temperature Source Pulse Rate Pulse Rate [Right Finger] 70 Pulse Rhythm Pulse Strength Respiratory Rate 18 Respiratory Effort / Characteristics Respiratory Depth Respiratory Pattern Blood Pressure Blood Pressure [Right Arm] 107/58 L Blood Pressure Mean Blood Pressure Mean [Right Arm] 74 Blood Pressure Position Pulse Oximetry 97 Oxygen Delivery Method Sepsis Recent Fever Within 48 Hours Sepsis New/Unexplained Change in Mental Status Sepsis Action Taken by Nursing Laboratory Data 11/10/22 10:13 11/10/22 10:13 Lab Results 11/10/22 11/10/22 11/10/22 Range/Units 09:16 09:56 10:13 WBC 5.10 (4.8-10.8) K/ul RBC 4.44 (3.93-5.22) M/uL Hgb 12.7 (12.0-16.0) g/dl Hct 37.5 (34.1-44.9) % MCV 84.5 (80.0-100.0) fL MCH 28.6 (25.0-34.0) pg MCHC 33.9 (32.0-36.0) g/dL RDW Std Deviation 42.2 (36.4-46.3) fL RDW Coeff of Dilshad 13.6 (11.5-14.5) % Plt Count 227 (130-400) K/uL MPV 9.5 (9.4-12.3) fL Immature Gran % (Auto) 0.2 % Neut % (Auto) 56.5 % Lymph % (Auto) 30.8 % Sharp % (Auto) 8.0 % Eos % (Auto) 3.5 % Baso % (Auto) 1.0 % Neut # (Auto) 2.88 (1.4-6.5) K/uL Lymph # (Auto) 1.57 (1.2-3.4) K/uL Sharp # (Auto) 0.41 (0.24-0.82) K/uL Eos # (Auto) 0.18 (0-0.50) K/uL Baso # (Auto) 0.05 (0-0.2) K/uL Immature Gran # (Auto) 0.01 (0.00-0.02) K/uL Sodium (136-145) mmol/L Potassium (3.5-5.1) mmol/L Chloride (98-107) mmol/L Carbon Dioxide (21-32) mmol/L Anion Gap (3-11) BUN (6-23) mg/dl Creatinine (0.6-1.2) mg/dl Est Cr Clr Drug Dosing ml/min Est GFR ( Amer) ml/min Est GFR (Non-Af Amer) ml/min BUN/Creatinine Ratio (10-20) Glucose (70-99(Fasting)) mg/dl Calcium (8.5-10.1) mg/dl Urine Color Dark Yellow Urine Appearance Clear (Clear) Urine pH 6.0 (4.5-7.5) Ur Specific [employer] 1.025 (1.000-1.030) Urine Protein Negative (Negative) Urine Glucose (UA) Negative (Negative) Urine Ketones Negative (Negative) Urine Blood Negative (Negative) Urine Nitrite Negative (Negative) Urine Bilirubin Negative (Negative) Urine Urobilinogen Negative (Negative) Ur Leukocyte Esterase Negative (Negative) SARS-CoV-2, RNA, NAAT NEGATIVE (NEGATIVE) 11/10/22 Range/Units 10:13 WBC (4.8-10.8) K/ul RBC (3.93-5.22) M/uL Hgb (12.0-16.0) g/dl Hct (34.1-44.9) % MCV (80.0-100.0) fL MCH (25.0-34.0) pg MCHC (32.0-36.0) g/dL RDW Std Deviation (36.4-46.3) fL RDW Coeff of Dilshad (11.5-14.5) % Plt Count (130-400) K/uL MPV (9.4-12.3) fL Immature Gran % (Auto) % Neut % (Auto) % Lymph % (Auto) % Sharp % (Auto) % Eos % (Auto) % Baso % (Auto) % Neut # (Auto) (1.4-6.5) K/uL Lymph # (Auto) (1.2-3.4) K/uL Sharp # (Auto) (0.24-0.82) K/uL Eos # (Auto) (0-0.50) K/uL Baso # (Auto) (0-0.2) K/uL Immature Gran # (Auto) (0.00-0.02) K/uL Sodium 138 (136-145) mmol/L Potassium 4.1 (3.5-5.1) mmol/L Chloride 105 (98-107) mmol/L Carbon Dioxide 27 (21-32) mmol/L Anion Gap 6 (3-11) BUN 17 (6-23) mg/dl Creatinine 0.52 L (0.6-1.2) mg/dl Est Cr Clr Drug Dosing 146.2 ml/min Est GFR ( Amer) 119.5 ml/min Est GFR (Non-Af Amer) 103.1 ml/min BUN/Creatinine Ratio 32.7 H (10-20) Glucose 98 (70-99(Fasting)) mg/dl Calcium 9.6 (8.5-10.1) mg/dl Urine Color Urine Appearance (Clear) Urine pH (4.5-7.5) Ur Specific [employer] (1.000-1.030) Urine Protein (Negative) Urine Glucose (UA) (Negative) Urine Ketones (Negative) Urine Blood (Negative) Urine Nitrite (Negative) Urine Bilirubin (Negative) Urine Urobilinogen (Negative) Ur Leukocyte Esterase (Negative) SARS-CoV-2, RNA, NAAT (NEGATIVE) Administered Medications Discontinued Medications Dexamethasone Sodium Phosphate (DexamethasonePf 10 Mg/Ml Vial) 10 mg IV NOW ONE Stop: 11/10/22 09:39 Last Admin: 11/10/22 10:03 Dose: 10 mg Documented By: DARREN Hydromorphone HCl (Hydromorphone Inj 1 Mg/Ml Syringe) 1 mg IV NOW STA Stop: 11/10/22 09:39 Last Admin: 11/10/22 10:05 Dose: 1 mg Documented By: DARREN Hydromorphone HCl (Hydromorphone Inj 0.5 Mg/0.5 Ml Syr) 0.5 mg IV NOW STA Stop: 11/10/22 14:37 Last Admin: 11/10/22 14:57 Dose: 0.5 mg Documented By: DARREN Acetaminophen (Ofirmev) 1,000 mg in 100 mls @ 400 mls/hr IV NOW STA Stop: 11/10/22 13:15 Last Infusion: 11/10/22 13:32 Dose: 0 mls/hr Documented By: Admin: 11/10/22 13:08 Dose: 400 mls/hr Documented By: DARREN Ketorolac Tromethamine (Ketorolac Tromethamine 15 Mg/Ml Vial) 10 mg IV NOW ONE Stop: 11/10/22 13:02 Last Admin: 11/10/22 13:08 Dose: 10 mg Documented By: DARREN Ondansetron HCl (Ondansetron Inj 2 Mg/Ml 2 Ml Vial) 4 mg IV NOW STA Stop: 11/10/22 10:47 Last Admin: 11/10/22 10:58 Dose: 4 mg Documented By: DARREN Imaging Data Radiologist's Impression: Lumbar Spine MRI 11/10/22 09:38 MRI OF THE LUMBAR SPINE WITHOUT IV CONTRAST CLINICAL HISTORY: Right lower extremity weakness. Urinary incontinence. COMPARISON STUDY: CT lumbar spine dated 10/26/2022. MRI of the lumbar spine dated 08/17/2022. TECHNIQUE: MRI of lumbar spine is performed utilizing various T1 and T2-weighted sequences in the axial and sagittal planes. IV contrast was not administered for this examination. The examination is degraded by susceptibility artifact from metallic spinal hardware. FINDINGS: Lumbar spine: Vertebral body height and alignment are maintained throughout the lumbar spine. A right hemitransitional lumbosacral segment is seen on the right. Small anterior and lateral marginal osteophytes are seen throughout. There is postsurgical change from laminectomy and posterior fusion seen from L2-L5. Intramedullary screws are present within the bodies of L2 and L3. Hardware has been removed at L4 and L5. The transverse processes appear intact. There is no MRI evidence of spondylolysis. No destructive bony lesion is seen. Chronic degenerative endplate change is seen at all levels between L2-L3 and L4-L5. There is no significant endplate edema. Intervertebral discs: There has been discectomy at L2-L3, L3-L4, and L4-L5. Disc desiccation is seen at the remaining levels. There is only mild loss of height at L1-L2. Paraspinal cord: The visualized spinal cord is normal in morphology and signal intensity. The conus medullaris terminates at the L1-L2 interspace. The nerve roots of the cauda equina are normal in morphology. L1-L2: There is broad-based posterior disc bulge. This abuts the transiting nerve roots. No significant acquired compromise of the central canal is seen. Left lateral disc bulge contributes to subarticular stenosis. This may abut the exiting left L1 nerve root. In conjunction with facet arthropathy, there is mild left-sided neural foraminal narrowing. The right neural foramen is patent. L2-L3: The central canal and neural foramina appear clear. L3-L4: The central canal and neural foramina appear clear. L4-L5: The central canal and neural foramina appear clear. L5-S1: The central canal and neural foramina appear clear. As noted above, there is a right hemitransitional lumbosacral segment at this level. There is mild bony overgrowth and narrowing anteriorly. This is best seen on axial image 29 and may cause some degree of impingement on the exiting L5 nerve root. Sacrum: The visualized sacrum is normal in morphology and signal intensity. Soft tissues: There is fatty atrophy of the paraspinous musculature, with postsurgical change seen posterior to the thecal sac at the operative levels. There is no evidence of fluid collection. The retroperitoneal structures are grossly unremarkable but incompletely evaluated. IMPRESSION: 1. There is no significant acquired compromise of the central canal. 2. Lumbosacral spondylosis and postsurgical change as above. See discussion for detailed level by level analysis. 3. Additional findings as above. Dictated: 11/10/2022 12:31 PM Transcribed: 11/10/2022 12:51 PM Rosenda [id number] [facility]_[place] Electronically signed by: Bulmaro Fraga M.D. 11/10/2022 1:03 PM Discharge Plan Visit Data Chief Complaint: Back Injury/Pain Stated Complaint: BACK PAIN ED Provider: Dequan Miller Discharge Problem: Acute right-sided low back pain with right-sided sciatica, Right leg weakness, Urinary incontinence Patient Disposition: Admitted As Inpatient Discharge Instructions Interventions: ED Discharge Assessment Last Done: 11/10/22 16:16 : Urinary incontinence Qualifiers: Urinary Incontinence type: other incontinence Qualified Code(s): N39.498 - Other specified urinary incontinence
[2022-11-10 10:43] LABS: Basophils # (auto) 0.05 K/uL (0-0.2); Eosinophils # (auto) 0.18 K/uL (0-0.50); Eosinophils % (auto) 3.5 %; Hematocrit (blood only) 37.5 % (34.1-44.9); Hemoglobin 12.7 g/dl (12.0-16.0); Immature Granulocytes # (auto) 0.01 K/uL (0.00-0.02); Immature Granulocytes % (auto) 0.2 %; Lymphocytes # (auto) 1.57 K/uL (1.2-3.4); Lymphocytes % (auto) 30.8 %; Mean Corpuscular Hemoglobin 28.6 pg (25.0-34.0); Mean Corpuscular Hgb Conc 33.9 g/dL (32.0-36.0); Mean Corpuscular Volume 84.5 fL (80.0-100.0); Mean Platelet Volume 9.5 fL (9.4-12.3); Monocytes # (auto) 0.41 K/uL (0.24-0.82); Neutrophils # (auto) 2.88 K/uL (1.4-6.5); Neutrophils % (auto) 56.5 %; Platelet Count 227 K/uL (130-400); RDW Coefficient of Variation 13.6 % (11.5-14.5); RDW Standard Deviation 42.2 fL (36.4-46.3); Red Blood Count 4.44 M/uL (3.93-5.22)
[2022-11-10] MEDS ORDERED: ONDANSETRON INJ 2 MG/ML 2 ML VIAL IV STA (10:46)
[2022-11-10 11:26] LABS: BUN Creatinine Ratio 32.7 (10-20); Calcium 9.6 mg/dl (8.5-10.1); Creatinine Clr Calc Pharmacy 146.2 ml/min; Est GFR (African American) 119.5 ml/min; Est GFR (Non-African American) 103.1 ml/min; Potassium 4.1 mmol/L (3.5-5.1)
[2022-11-10] MEDS ORDERED: KETOROLAC TROMETHAMINE 15 MG/ML VIAL IV ONE (13:01)
[2022-11-10] MEDS ORDERED: ACETAMINOPHEN 1,000 MG/100 ML VIAL IV STA (13:01)
--- NOTE | 2022-11-10 13:05 | Magnetic Resonance Report ---
MRI OF THE LUMBAR SPINE WITHOUT IV CONTRAST CLINICAL HISTORY: Right lower extremity weakness. Urinary incontinence. COMPARISON STUDY: CT lumbar spine dated 10/26/2022. MRI of the lumbar spine dated 08/17/2022. TECHNIQUE: MRI of lumbar spine is performed utilizing various T1 and T2-weighted sequences in the axi al and sagittal planes. IV contrast was not administered for this examination. The examination is deg raded by susceptibility artifact from metallic spinal hardware. FINDINGS: Lumbar spine: Vertebral body height and alignment are maintained throughout the lumbar spine. A right hemitransitional lumbosacral segment is seen on the right. Small anterior and lateral marginal osteo phytes are seen throughout. There is postsurgical change from laminectomy and posterior fusion seen f rom L2-L5. Intramedullary screws are present within the bodies of L2 and L3. Hardware has been remove d at L4 and L5. The transverse processes appear intact. There is no MRI evidence of spondylolysis. No destructive bony lesion is seen. Chronic degenerative endplate change is seen at all levels between L2-L3 and L4-L5. There is no significant endplate edema. Intervertebral discs: There has been discectomy at L2-L3, L3-L4, and L4-L5. Disc desiccation is seen at the remaining levels. There is only mild loss of height at L1-L2. Paraspinal cord: The visualized spinal cord is normal in morphology and signal intensity. The conus m edullaris terminates at the L1-L2 interspace. The nerve roots of the cauda equina are normal in morph ology. L1-L2: There is broad-based posterior disc bulge. This abuts the transiting nerve roots. No significa nt acquired compromise of the central canal is seen. Left lateral disc bulge contributes to subarticu lar stenosis. This may abut the exiting left L1 nerve root. In conjunction with facet arthropathy, th ere is mild left-sided neural foraminal narrowing. The right neural foramen is patent. L2-L3: The central canal and neural foramina appear clear. L3-L4: The central canal and neural foramina appear clear. L4-L5: The central canal and neural foramina appear clear. L5-S1: The central canal and neural foramina appear clear. As noted above, there is a right hemitrans itional lumbosacral segment at this level. There is mild bony overgrowth and narrowing anteriorly. Th is is best seen on axial image 29 and may cause some degree of impingement on the exiting L5 nerve ro ot. Sacrum: The visualized sacrum is normal in morphology and signal intensity. Soft tissues: There is fatty atrophy of the paraspinous musculature, with postsurgical change seen po sterior to the thecal sac at the operative levels. There is no evidence of fluid collection. The retr operitoneal structures are grossly unremarkable but incompletely evaluated. IMPRESSION: 1. There is no significant acquired compromise of the central canal. 2. Lumbosacral spondylosis and postsurgical change as above. See discussion for detailed level by eddie hale analysis. 3. Additional findings as above. Dictated: 11/10/2022 12:31 PM Transcribed: 11/10/2022 12:51 PM Rosenda [id number] [facility]_[place] Electronically signed by: Bulmaro Fraga M.D. 11/10/2022 1:03 PM
[2022-11-10] MEDS ORDERED: HYDROmorphone INJ 0.5 MG/0.5 ML SYR IV STA (14:36)
--- NOTE | 2022-11-10 15:10 | History & Physical Report ---
Date of Service November 10, 2022 Assessment & Plan (1) Acute exacerbation of chronic low back pain: Plan: Acute on chronic low back pain Patient fell on ice 2 weeks ago, rested in bed for 1 week but has had low back pain radiating to right thigh since then limiting ambulation Patient endorses weakness in the right greater than left leg, on strength testing in bed testing is 5/5 strength but somewhat pain limited on hip flexion. Patient is able to roll around to maneuver in bed during exam Endorses some qualitative tingling to right lower extremity soft touch compared to left, and some acute exacerbation of right plantar numbness compared to baseline but overall sensation is intact to soft touch Has tried multiple NSAIDs, Tylenol, and cyclobenzaprine as outpatient without improvement. Reports cyclobenzaprine made her pain worse Given symptoms of urinary urgency/possible overflow incontinence MRI was obtained. MRI does not show any evidence of cauda equina syndrome.L1-L2: There is broad- based posterior disc bulge. This abuts the transiting nerve roots. L5-S1: The central canal and neural foramina appear clear. As noted above, there is a right hemitransitional lumbosacral segment at this level. There is mild bony overgrowth and narrowing anteriorly. This is best seen on axial image 29 and may cause some degree of impingement on the exiting L5 nerve root. Continue Tylenol, breakthrough analgesia with morphine. Patient received dexamethasone and Toradol. Follow clinically. If pain is not improving and is limiting function may benefit from pain management referral/injection. Symptoms have been present for less than 4 weeks. PT/OT Bladder scan overnight for signs of urinary retention. Straight cath as needed Anxiety Patient is no longer on mirtazapine/bupropion Takes clonazepam 0.5 mg p.o. nightly as needed, does not take every night has been decreasing this due to cognitive impairment as outpatient We will continue clonazepam at night as needed. Hypothyroidism Continue home Synthroid DVT prophylaxis: History of DVT, patient reports she has not tolerated SCDs while in the past. Lovenox. Diet: Regular. Patient has a normal admitting glucose and reports she previously had diabetic concerns but these have been diet managed at home without recently elevated A1c. Daily BMP, SSI/insulin and DM diet if greater than 150 CODE STATUS: Full code Disposition: Medical surgical (2) Chronic back pain: (3) Anxiety: (4) S/P lumbar spinal fusion: History of Present Illness Primary Care Provider: Rosenda Werner is a 62-year-old female with a past medical history of lumbar fusion who reports she fell on ice 2 weeks ago, rested for 1 week, went to return to work this week but has had difficulty walking due to feeling of weakness in her right leg and a little in her last and back pain with spasms which occur in her low mid to right back and which radiate around her belly into her anterior thigh. She reports in the last day she has had some urinary incontinence which feels like urgency and the quick need to void, and after she voids she feels like she needs to pee shortly later. She has not had any burning/dysuria. Bowel movements are slightly loose, but no constipation/diarrhea/incontinence. Has not had any fever, chills, sweats, cough, shortness of breath. She has some ba seline numbness/tingling in the bottom of her right foot which feels a little bit worse, otherwise no numbness/tingling. Pain is tolerable at rest, but increases to a 10/10 mostly in the right back and right leg with movement. FEll on ice 2 weeks ago. PCP Nae Mathias retired, has been seeing different providers including Rosenda Robles since. Was prescribed No improvement with celebrex (leftover from knee surgery), diclofenac (stopped due to stomach upset), tylenol, flexeril (made pain worse). HOme Meds: Synthroid, Vitamin D3, B complex, tylneol arthritis PRN, and alieve PRN. Takes clonazepam 0.5mg qHS Medical History: Reviewed Medications: Reviewed Surgical History: Reviewed Allergies: Reviewed Social History: No tobacco, no alcohol use Code Status: Full code Allergies Allergy/AdvReac Type Severity Reaction Status Date / Time hydroxyzine Allergy Intermediate HYPERACTIVE Verified 11/10/22 15:13 levofloxacin Allergy Mild RASH Verified 11/10/22 15:13 Quinolones Allergy Mild RASH Verified 11/10/22 15:13 wheat Allergy Mild GI Verified 11/10/22 15:13 SENSITIVITY diphenhydramine AdvReac Intermediate "KEEPS ME Verified 11/10/22 15:13 AWAKE INSTEAD OF MAKING ME SLEEPY" prednisone AdvReac Intermediate PSYCHOTIC Verified 11/10/22 15:13 COMPLICATIONS tramadol AdvReac Intermediate "OUT OF Verified 11/10/22 15:13 BODY" Sulfa (Sulfonamide AdvReac Mild GI UPSET Verified 11/10/22 15:13 Antibiotics) Home Medications Medication Instructions Recorded Confirmed Type clonazepam 0.5 mg tablet 0.5 mg PO HS 07/17/18 11/10/22 History loratadine 10 mg capsule 10 mg PO QAM 07/17/18 11/10/22 History vitamin B complex 1 cap PO QAM 07/17/18 11/10/22 History levothyroxine 50 mcg tablet 50 mcg PO UD 07/25/19 11/10/22 History cholecalciferol (vitamin D3) 25 2,000 units PO QAM 06/01/20 11/10/22 History mcg (1,000 unit) capsule (Vitamin D3) celecoxib 100 mg capsule (Celebrex) 100 mg PO DAILY PRN Pain 03/08/21 11/10/22 History oxycodone 5 mg tablet 5 mg PO Q4H PRN pain #15 tabs 10/26/22 11/10/22 Rx bupropion HCl 75 mg tablet 75 mg PO BID 11/10/22 11/10/22 History cyclobenzaprine 5 mg tablet 5 mg PO HS 11/10/22 11/10/22 History diclofenac sodium 50 mg 50 mg PO Q8 11/10/22 11/10/22 History tablet,delayed release mirtazapine 15 mg tablet 15 mg PO HS 11/10/22 11/10/22 History Past Med/Surg History Medical History Anxiety Diabetes Hx of sarcoidosis NO RECENT ISSUES. SINGLE FLARE 2012. Hypothyroidism Morbid obesity Osteoarthritis Osteoarthritis of left knee Spinal stenosis Surgical History H/O bilateral salpingo-oophorectomy History of appendectomy History of bilateral tubal ligation History of breast biopsy R BREAST-BENIGN History of bronchoscopy TO DX SARCODOSIS 2013 History of carpal tunnel release RT/LEFT History of section X4 History of colonoscopy History of esophagogastroduodenoscopy (EGD) History of myringotomy History of right knee joint replacement Hx of spinal surgery S/P cervical spinal fusion GOOD ROM S/P lumbar spinal fusion S/P partial hysterectomy [place] teeth removed Family History Brother Diabetes Colorectal cancer Mother Diabetes Stomach cancer Sarcoidosis Lymphoma Father Coronary heart disease Other Cancer Heart disease Hypertension No family history of adverse response to anesthesia No family history of bleeding disorder Social History Smoking Status: Never smoker Second Hand Exposure: No; Hx Alcohol Use: No Hx Substance Use: No Preferred Language: Faroese Communication Ability: Effective Visual Impairment: No Limitations Art Installer Required: No Beliefs That Will Affect Care: None marital status: Current Living Situation: Spouse Feels Safe at Home: Yes Assistive Devices: Cane and Walker Review of Systems Review of Systems: All systems reviewed & are unremarkable except as noted in Subjective Physical Exam Physical Exam: General: A&Ox3. NAD. Cooperative. HEENT: Atraumatic, normocephalic. Vision/hearing grossly intact Pulm: CTAB A&P. -wheezes, -rales, -rhonchi. Symmetrical chest rise. No increased work of breathing. No respiratory distress. Cardiac: RRR, -mrg. Radial pulses intact and symmetrical. Abdominal: Nontender, nondistended, soft. BS present. CRANIAL NERVES: II: Pupils equal and reactive, no relative afferent pupillary defect, no VF cuts III, IV, : EOM intact, no gaze preference or deviation, no nystagmus. V: normal sensation in V1, V2, and V3 segments bilaterally VII: no asymmetry, no nasolabial fold flattening VIII: normal hearing to speech IX, X: normal palatal elevation, no uvular deviation XI: 5/5 head turn and 5/5 shoulder shrug bilaterally XII: midline tongue protrusion MOTOR: hip flexion, knee flexion, ankle dorsiflexion/plantarflexion 5/5 bilaterally, hip flexion somewhat limited by discomfort in the merrick R>L. Rotary Dump Operator strength, elbow flexion/extension 5/5 bilaterally. Sensation was soft touch intact in hands bilaterally without asymmetry. SENSORY: Sensation intact to soft touch in lower extremities bilaterally, qualitatively with a little more tingling on the right compared to left. No saddle anesthesia is present. Results & Data Results & Data ([facility]) Vital Signs (Past 12 Hours) Vital Signs Temp Pulse Pulse Resp BP BP Pulse Ox 11/10/22 14:23 70 18 107/58 L 97 11/10/22 12:39 83 19 103/56 L 97 11/10/22 10:01 77 20 134/74 98 11/10/22 09:05 36.8 C 88 18 114/73 98 O2 Del Method 11/10/22 14:23 11/10/22 12:39 Room Air 11/10/22 10:01 Room Air 11/10/22 09:05 Room Air PG Care Time/CCT Total # of Minutes Spent Total Time Spent with Patient: Total time spent is greater than 50% in coordination of care (as documented) at patient's floor/unit and/or counseling patient: Coding Level of Care Code 98034 INT INP/OBS CARE 2/55MIN Diagnoses Acute exacerbation of chronic low back pain M54.50; G89.29 Chronic back pain M54.9; G89.29 Anxiety F41.9 S/P lumbar spinal fusion Z98.1
[2022-11-10] MEDS ORDERED: ACETAMINOPHEN 325 MG TAB PO PRN (17:04)
[2022-11-10] MEDS ORDERED: HYDROmorphone INJ 0.5 MG/0.5 ML SYR IV PRN (17:04)
[2022-11-10] MEDS ORDERED: POLYETHYLENE (MIRALAX) 17 GM PACK PO PRN (17:04)
[2022-11-10] MEDS: LEVOTHYROXINE SODIUM 50 MCG TABLET PO SCH (17:45)
[2022-11-10] MEDS: ACETAMINOPHEN 325 MG TAB PO PRN ×2 (17:57→21:31)
[2022-11-10] MEDS: ENOXAPARIN INJ 40 MG/0.4 ML SYR SQ SCH (18:41)
[2022-11-10] MEDS: HYDROmorphone INJ 1 MG/ML SYRINGE IV PRN (19:19)
[2022-11-10] MEDS: clonazePAM 0.5 MG TAB PO SCH (20:24)
[2022-11-11] MEDS: HYDROmorphone INJ 1 MG/ML SYRINGE IV PRN ×4 (00:03→20:16)
[2022-11-11] MEDS: ENOXAPARIN INJ 40 MG/0.4 ML SYR SQ SCH ×2 (05:34→18:22)
[2022-11-11] MEDS ORDERED: LEVOTHYROXINE SODIUM 75 MCG TABLET PO SCH (06:30)
[2022-11-11] MEDS: ONDANSETRON INJ 2 MG/ML 2 ML VIAL IV PRN ×2 (08:09→20:44)
[2022-11-11] MEDS: VITAMIN B COMPLEX TAB PO SCH (08:58)
[2022-11-11 09:16] LABS: Basophils # (auto) 0.01 K/uL (0-0.2); Basophils % (auto) 0.1 %; Hematocrit (blood only) 37.8 % (34.1-44.9); Hemoglobin 12.8 g/dl (12.0-16.0); Immature Granulocytes # (auto) 0.05 K/uL (0.00-0.02); Immature Granulocytes % (auto) 0.7 %; Lymphocytes # (auto) 1.08 K/uL (1.2-3.4); Lymphocytes % (auto) 14.4 %; Mean Corpuscular Hemoglobin 28.5 pg (25.0-34.0); Mean Corpuscular Hgb Conc 33.9 g/dL (32.0-36.0); Mean Corpuscular Volume 84.2 fL (80.0-100.0); Mean Platelet Volume 9.9 fL (9.4-12.3); Monocytes # (auto) 0.35 K/uL (0.24-0.82); Monocytes % (auto) 4.7 %; Neutrophils % (auto) 80.1 %; Platelet Count 255 K/uL (130-400); RDW Coefficient of Variation 13.4 % (11.5-14.5); RDW Standard Deviation 41.6 fL (36.4-46.3); Red Blood Count 4.49 M/uL (3.93-5.22); White Blood Count 7.49 K/ul (4.8-10.8)
[2022-11-11 09:46] LABS: BUN Creatinine Ratio 31.7 (10-20); Calcium 9.3 mg/dl (8.5-10.1); Est GFR (African American) 112.2 ml/min; Est GFR (Non-African American) 96.8 ml/min; Potassium 4.3 mmol/L (3.5-5.1)
[2022-11-11] MEDS: dexAMETHasone 4 MG in SYRINGE 0 ML IV SCH ×3 (10:48→20:16)
[2022-11-11] MEDS: HYDROCODONE/ACETAMOPHEN 5/325MG TAB PO PRN ×2 (11:37→18:46)
[2022-11-11] MEDS: clonazePAM 0.5 MG TAB PO SCH (20:16)
--- NOTE | 2022-11-11 20:54 | Hospitalist Progress Note ---
Date of Service November 11, 2022 Assessment & Plan (1) Lumbar radiculopathy, acute: Plan: I believe her low back pain with radiation of pain to the right groin is due to the L1-L2 disease seen on MRI lumbar spine. The pain is likely radicular in etiology. She may have concomitant right hip bursitis. If present it is the lesser of the two etiologies causing her current symptoms. Will consult Dr Quezada for his opinion and recommendations. Add dexamethasone 4mg IV TID. Add gabapentin 100mg TID. Cont dilaudid prn for severe pain. Cont norco 7.5's prn for mild-moderate pain. PT consult in am. To prevent opiate-induced constipation add senna + miralax. (2) Right leg weakness: Plan: 2nd to #1 (3) Morbid obesity with BMI of 50.0-59.9, adult: Plan: BMI 51 (4) Right thigh pain: Plan: 2nd to #1 recent R hip x-rays without apparent fracture to be complete will check venous doppler RLE - r/o DVT (5) History of prediabetes: Plan: with use of steroids check fasting glucose AM check a1c while here change diet if necessary add BSGs if needed (6) Hypothyroidism: Plan: check TSH am cont synthroid Plan DVT proph - lovenox 40mg BID due to morbid obesity Admission and Anticipated Discharge Date Admission Date: November 10, 2022 Subjective patient states she was seen in the ER on 10/26 for her acute back pain she was also seen by [facility] Dr Chavez on 11/01 records show she had right hip and pelvic x-rays she states she continues with severe lumbar back pain that radiates to the right hip region and then wraps around the right groin to the right medial thigh no pain down the posterior leg on right she has hard time going up steps and flexing the right hip her right leg - especially the thigh - feels "heavy" denies any worsening or new edema pain today is improved from yesterday she describes the above pain as a deep pain; no paresthesias has mild chronic left leg pain but no changes in such no bowel incontinence mild urinary incontinence/frequency Review of Systems Review of Systems: gen - no fevers or chills cv - no chest pain pulm - no dyspnea GI - no abd pain Physical Exam Physical Exam: gen - morbidly obese, NAD, sitting in chair by window mouth - MMM neck - no JVD sitting upright heart - RRR, s1 s2, no murmur lungs - CTA b/l abd - soft NT ND BS+ ext - trace edema b/l feet, pulses 2+ b/l musculo - tender over right trochanteric bursal region; tender over same location with internal/external rotation of right hip; no deformity of right leg; tender over lumbar spine to palpation neuro - right hip flexion 4/5 strength; left hip flexion 5/5; b/l ankle dorsiflexion/plantarflexion 5/5; DTRs achilles 1-2+ b/l; with right hip flexion causes pain Results & Data Results & Data ([facility]) Vital Signs (Past 12 Hours) Vital Signs Temp Pulse Pulse Resp BP BP Pulse Ox 11/11/22 14:53 36.9 C 72 18 123/69 94 11/11/22 12:19 36.9 C 81 14 100/63 98 O2 Del Method 11/11/22 14:53 Room Air 11/11/22 12:19 Room Air Laboratory Results Laboratory Results - last 48 hr 11/10/22 11/10/22 11/10/22 09:16 09:56 10:13 WBC 5.10 RBC 4.44 Hgb 12.7 Hct 37.5 MCV 84.5 MCH 28.6 MCHC 33.9 RDW Std Deviation 42.2 RDW Coeff of Dilshad 13.6 Plt Count 227 MPV 9.5 Immature Gran % (Auto) 0.2 Neut % (Auto) 56.5 Lymph % (Auto) 30.8 Lares % (Auto) 8.0 Eos % (Auto) 3.5 Baso % (Auto) 1.0 Neut # (Auto) 2.88 Lymph # (Auto) 1.57 Lares # (Auto) 0.41 Eos # (Auto) 0.18 Baso # (Auto) 0.05 Immature Gran # (Auto) 0.01 Sodium Potassium Chloride Carbon Dioxide Anion Gap BUN Creatinine Est Cr Clr Drug Dosing Est GFR ( Amer) Est GFR (Non-Af Amer) BUN/Creatinine Ratio Glucose Calcium Urine Color Dark Yellow Urine Appearance Clear Urine pH 6.0 Ur Specific [place] 1.025 Urine Protein Negative Urine Glucose (UA) Negative Urine Ketones Negative Urine Blood Negative Urine Nitrite Negative Urine Bilirubin Negative Urine Urobilinogen Negative Ur Leukocyte Esterase Negative SARS-CoV-2, RNA, NAAT NEGATIVE 11/10/22 11/11/22 11/11/22 10:13 08:28 08:28 WBC 7.49 RBC 4.49 Hgb 12.8 Hct 37.8 MCV 84.2 MCH 28.5 MCHC 33.9 RDW Std Deviation 41.6 RDW Coeff of Dilshad 13.4 Plt Count 255 MPV 9.9 Immature Gran % (Auto) 0.7 Neut % (Auto) 80.1 Lymph % (Auto) 14.4 Lares % (Auto) 4.7 Eos % (Auto) 0.0 Baso % (Auto) 0.1 Neut # (Auto) 6.00 Lymph # (Auto) 1.08 L Lares # (Auto) 0.35 Eos # (Auto) 0.00 Baso # (Auto) 0.01 Immature Gran # (Auto) 0.05 H Sodium 138 138 Potassium 4.1 4.3 Chloride 105 104 Carbon Dioxide 27 28 Anion Gap 6 6 BUN 17 20 Creatinine 0.52 L 0.63 Est Cr Clr Drug Dosing 146.2 115.0 Est GFR ( Amer) 119.5 112.2 Est GFR (Non-Af Amer) 103.1 96.8 BUN/Creatinine Ratio 32.7 H 31.7 H Glucose 98 113 H Calcium 9.6 9.3 Urine Color Urine Appearance Urine pH Ur Specific [place] Urine Protein Urine Glucose (UA) Urine Ketones Urine Blood Urine Nitrite Urine Bilirubin Urine Urobilinogen Ur Leukocyte Esterase SARS-CoV-2, RNA, NAAT PG Care Time/CCT Total # of Minutes Spent Total Time Spent with Patient: Total time spent is greater than 50% in coordination of care (as documented) at patient's floor/unit and/or counseling patient: Coding Level of Care Code 15011 SUB INP/OBS CARE 3/50MIN Diagnoses Lumbar radiculopathy, acute M54.16 Right leg weakness R29.898 Morbid obesity with BMI of 50.0-59.9, adult E66.01; Z68.43 Right thigh pain M79.651 History of prediabetes Z87.898 Hypothyroidism E03.9
[2022-11-11] MEDS: GABAPENTIN 100 MG CAP PO SCH (21:54)
--- NOTE | 2022-11-11 23:21 | Ultrasound Report ---
US venous doppler LE RT HISTORY: 62 years-old Female thigh pain on Right acute pain and swelling of the right lower leg COMPARISON: 08/18/2022 TECHNIQUE: Multiple real-time sonographic images of the right lower extremity deep venous structures were obtained assessing grayscale appearance, color and spectral flow. FINDINGS: Normal flow, compressibility, phasicity and augmentation. IMPRESSION: No sonographic evidence of deep venous thrombosis. ACT 112: Negative or not required by law. The above report was generated using voice recognition software. It may contain grammatical, syntax o r spelling errors. Electronically signed by: Naeem Gomez M.D. 11/11/2022 11:20 PM
[2022-11-12] MEDS: HYDROCODONE/ACETAMOPHEN 5/325MG TAB PO PRN ×3 (01:37→14:25)
[2022-11-12] MEDS: LEVOTHYROXINE SODIUM 50 MCG TABLET PO SCH (06:03)
[2022-11-12] MEDS: ENOXAPARIN INJ 40 MG/0.4 ML SYR SQ SCH (06:03)
[2022-11-12 07:15] LABS: Calcium 9.2 mg/dl (8.5-10.1); Potassium 4.4 mmol/L (3.5-5.1)
[2022-11-12 07:21] LABS: BUN Creatinine Ratio 26.9 (10-20); Creatinine Clr Calc Pharmacy 108.1 ml/min; Est GFR (Non-African American) 94.9 ml/min
[2022-11-12 08:04] LABS: Estimated Average Glucose 117 mg/dl; Hemoglobin A1C 5.7 % (4.5-5.6)
[2022-11-12] MEDS ORDERED: SENNA 8.6 MG TAB PO SCH (09:00)
[2022-11-12] MEDS ORDERED: POLYETHYLENE (MIRALAX) 17 GM PACK PO SCH (09:00)
[2022-11-12] MEDS: VITAMIN B COMPLEX TAB PO SCH (09:11)
[2022-11-12] MEDS: dexAMETHasone 4 MG in SYRINGE 0 ML IV SCH ×2 (09:11→14:26)
[2022-11-12] MEDS: GABAPENTIN 100 MG CAP PO SCH ×3 (09:11→14:20)
--- NOTE | 2022-11-12 10:46 | Orthopedic Consultation ---
Date of Consultation November 12, 2022 Assessment & Plan (1) Osteoarthritis of right hip: Assessment osteoarthritis of the right hip. Plan at this time I have reviewed the patient's MRI and discussed with the patient. She does have some modest adjacent level disease but no gross neural compression. I suspect the majority of her symptom complex is in fact the advanced osteoarthritis the right hip. She is requested to see my partner Dr. Berry. We will arrange an appointment next week. History of Present Illness Reason for Consultation: Back and right leg pain Attending Physician: Beau Muñoz History of Present Illness This is a 62-year-old female known to me that presents with left fairly limiting back and right leg pain. It was exacerbated after a fall. This morning she states her pain starts from the right buttock extending into her groin and down her right anterior thigh. Does not extend below the knee. Left lower extremities asymptomatic. Allergies Allergy/AdvReac Type Severity Reaction Status Date / Time hydroxyzine Allergy Intermediate HYPERACTIVE Verified 11/10/22 15:13 levofloxacin Allergy Mild RASH Verified 11/10/22 15:13 Quinolones Allergy Mild RASH Verified 11/10/22 15:13 wheat Allergy Mild GI Verified 11/10/22 15:13 SENSITIVITY diphenhydramine AdvReac Intermediate "KEEPS ME Verified 11/10/22 15:13 AWAKE INSTEAD OF MAKING ME SLEEPY" prednisone AdvReac Intermediate PSYCHOTIC Verified 11/10/22 15:13 COMPLICATIONS tramadol AdvReac Intermediate "OUT OF Verified 11/10/22 15:13 BODY" Sulfa (Sulfonamide AdvReac Mild GI UPSET Verified 11/10/22 15:13 Antibiotics) Home Medications Medication Instructions Recorded Confirmed Type clonazepam 0.5 mg tablet 0.5 mg PO HS 07/17/18 11/10/22 History loratadine 10 mg capsule 10 mg PO QAM 07/17/18 11/10/22 History vitamin B complex 1 cap PO QAM 07/17/18 11/10/22 History levothyroxine 50 mcg tablet 50 mcg PO UD 07/25/19 11/10/22 History cholecalciferol (vitamin D3) 25 2,000 units PO QAM 06/01/20 11/10/22 History mcg (1,000 unit) capsule (Vitamin D3) celecoxib 100 mg capsule (Celebrex) 100 mg PO DAILY PRN Pain 03/08/21 11/10/22 History oxycodone 5 mg tablet 5 mg PO Q4H PRN pain #15 tabs 10/26/22 11/10/22 Rx bupropion HCl 75 mg tablet 75 mg PO BID 11/10/22 11/10/22 History cyclobenzaprine 5 mg tablet 5 mg PO HS 11/10/22 11/10/22 History diclofenac sodium 50 mg 50 mg PO Q8 11/10/22 11/10/22 History tablet,delayed release mirtazapine 15 mg tablet 15 mg PO HS 11/10/22 11/10/22 History Patient History Medical History (Updated 11/12/22 @ 10:45 by Kelton Quezada DO) Anxiety Diabetes Hx of sarcoidosis NO RECENT ISSUES. SINGLE FLARE 2012. Hypothyroidism Morbid obesity Osteoarthritis Osteoarthritis of left knee Spinal stenosis Surgical History H/O bilateral salpingo-oophorectomy History of appendectomy History of bilateral tubal ligation History of breast biopsy R BREAST-BENIGN History of bronchoscopy TO DX SARCODOSIS 2013 History of carpal tunnel release RT/LEFT History of section X4 History of colonoscopy History of esophagogastroduodenoscopy (EGD) History of myringotomy History of right knee joint replacement Hx of spinal surgery S/P cervical spinal fusion GOOD ROM S/P lumbar spinal fusion S/P partial hysterectomy [place] teeth removed Family History Brother Diabetes Colorectal cancer Mother Diabetes Stomach cancer Sarcoidosis Lymphoma Father Coronary heart disease Other Cancer Heart disease Hypertension No family history of adverse response to anesthesia No family history of bleeding disorder Social History Smoking Status: Never smoker Second Hand Exposure: No; Hx Alcohol Use: No Hx Substance Use: No Preferred Language: [place] Communication Ability: Effective Visual Impairment: No Limitations Doll Maker Required: No Beliefs That Will Affect Care: None marital status: Current Living Situation: Spouse and Family Current Living Situation Comment: Lives with , patient's brother and SUMEET Other Information That Helps Us Care for You: No Feels Safe at Home: Yes Safety Concerns: Feels Safe At This Time Assistive Devices: Cane and Walker Physical Exam Physical Exam: On exam she is able to get out of the chair on her own volition. If she steps forward she does have reproduction of pain with weightbearing on the right lower extremity none on the left. Bench exam reveals reasonable strength in plantar flexion dorsiflexion but a markedly positive logroll on the right compared to the left. Results & Data ([facility]) Vital Signs (Past 12 Hours) Vital Signs Temp Pulse Resp BP Pulse Ox O2 Del Method 11/12/22 07:05 36.8 C 68 16 123/74 99 Room Air
--- NOTE | 2022-11-12 14:59 | Discharge Summary ---
Date of Service November 12, 2022 Admission HPI Per Admitting Provider Alphonso is a 62-year-old female with a past medical history of lumbar fusion who reports she fell on ice 2 weeks ago, rested for 1 week, went to return to work this week but has had difficulty walking due to feeling of weakness in her right leg and a little in her last and back pain with spasms which occur in her low mid to right back and which radiate around her belly into her anterior thigh. She reports in the last day she has had some urinary incontinence which feels like urgency and the quick need to void, and after she voids she feels like she needs to pee shortly later. She has not had any burning/dysuria. Bowel movements are slightly loose, but no constipation/diarrhea/incontinence. Has not had any fever, chills, sweats, cough, shortness of breath. She has some baseline numbness/tingling in the bottom of her right foot which feels a little bit worse, otherwise no numbness/tingling. Pain is tolerable at rest, but increases to a 10/10 mostly in the right back and right leg with movement. FEll on ice 2 weeks ago. PCP Nae Mathias retired, has been seeing different providers including Rosenda Robles since. Was prescribed No improvement with celebrex (leftover from knee surgery), diclofenac (stopped due to stomach upset), tylenol, flexeril (made pain worse). HOme Meds: Synthroid, Vitamin D3, B complex, tylneol arthritis PRN, and alieve PRN. Takes clonazepam 0.5mg qHS Medical History: Reviewed Medications: Reviewed Surgical History: Reviewed Allergies: Reviewed Social History: No tobacco, no alcohol use Code Status: Full code Discharge Exam gen - morbidly obese, NAD, sitting in chair by window mouth - MMM neck - no JVD sitting upright heart - RRR, s1 s2, no murmur lungs - CTA b/l abd - soft NT ND BS+ ext - trace edema b/l feet, pulses 2+ b/l musculo - tender over right trochanteric bursal region; tender over same location with internal/external rotation of right hip; no deformity of right leg; tender over lumbar spine to palpation neuro - right hip flexion 4/5 strength; left hip flexion 5/5; b/l ankle dorsiflexion/plantarflexion 5/5; DTRs achilles 1-2+ b/l; with right hip flexion causes pain Discharge Data Allergies Allergy/AdvReac Type Severity Reaction Status Date / Time hydroxyzine Allergy Intermediate HYPERACTIVE Verified 11/10/22 15:13 levofloxacin Allergy Mild RASH Verified 11/10/22 15:13 Quinolones Allergy Mild RASH Verified 11/10/22 15:13 wheat Allergy Mild GI Verified 11/10/22 15:13 SENSITIVITY diphenhydramine AdvReac Intermediate "KEEPS ME Verified 11/10/22 15:13 AWAKE INSTEAD OF MAKING ME SLEEPY" prednisone AdvReac Intermediate PSYCHOTIC Verified 11/10/22 15:13 COMPLICATIONS tramadol AdvReac Intermediate "OUT OF Verified 11/10/22 15:13 BODY" Sulfa (Sulfonamide AdvReac Mild GI UPSET Verified 11/10/22 15:13 Antibiotics) Consultations 11/10/22 14:57 ED Decision to Admit Stat 11/11/22 20:53 Consult Orthopedic Surgery Routine Ordered Studies 11/10/22 09:38 MR lumbar spine wo con Stat 11/11/22 16:43 US venous doppler LE RT Routine Hospital Course (1) Lumbar radiculopathy, acute: I believe her low back pain with radiation of pain to the right groin is due to the L1-L2 disease seen on MRI lumbar spine. The pain is likely radicular in etiology. She may have concomitant right hip bursitis. If present it is the lesser of the two etiologies causing her current symptoms. Will consult Dr Quezada for his opinion and recommendations. Add dexamethasone 4mg IV TID. Add gabapentin 100mg TID. Cont dilaudid prn for severe pain. Cont norco 7.5's prn for mild-moderate pain. PT consult in am. To prevent opiate-induced constipation add senna + miralax. (2) Right leg weakness: 2nd to #1 (3) Morbid obesity with BMI of 50.0-59.9, adult: BMI 51 (4) Right thigh pain: 2nd to #1 recent R hip x-rays without apparent fracture to be complete will check venous doppler RLE - r/o DVT (5) History of prediabetes: with use of steroids check fasting glucose AM check a1c while here change diet if necessary add BSGs if needed (6) Hypothyroidism: check TSH am cont synthroid Plan DVT proph - lovenox 40mg BID due to morbid obesity Discharge Plan Discharge Items Patient Disposition: Home - Self-Care Reason For Visit: BACK PAIN Discharge Diagnosis: 1. back pain - due to recent fall; MRI lumbar spine without fractures; L1-L2 disc disease seen 2. right groin pain and thigh pain - likely due to severe osteoarthritis of the right hip 3. possible right hip bursitis 4. hypothyroidism Activity: As commented below Activity Comment: light activities only (walking, etc); no heavy exertional activity Lifting: No more than 10 pounds Driving/Machine Use: No driving if you are taking hydrocodone narcotic pain medication Non-emergency contact: Primary Care Provider and Surgeon Call non-emergency contact if: you have any medication questions, your symptoms worsen, your pain is not controlled and your pain is worsening Follow-up/Referrals: Alfredo Berry MD [Outside Practitioners] - (see Dr Berry within 2 weeks to discuss treatment options for your right hip) Rosenda Robles CRNP [Primary Care Provider] - (see Ms Robles within 5 days ) Diet: Regular Addtl Attending Provider Instructions: Mrs Villanueva, Kale were hospitalized due to ongoing, severe pain in your back, right buttock, right groin, and right thigh. MRI of your lumbar spine was largely unchanged from your MRI in 07/2022. You have degeneration and a disc herniation at L1-L2 that will need to be watched over time by Dr Quezada; however, it is unlikely to be causing your current buttock/groin/thigh pain. You had a recent x-ray of your hips and the right hip has a considerable amount of osteoarthritis in it. This is the more likely cause of your pain in your right groin and the right thigh. In addition, you have been having pain over the bursae of the right hip; thus, you may have some bursitis of the hip as well. Dr Quezada from [facility] saw you in consult, reviewed your MRI and other films, and has suggested follow-up for your right hip osteoarthritis. The L1-L2 disc disease does not need any other treatments at this time. Recommendations - 1. Take hydrocodone-acetaminophen 5mg/325mg - 1 tab every 6 hours as needed for pain. If the 1 tab is not enough to control your pain you may take 2 tablets at a time as needed. Note the following - * hydrocodone is a narcotic pain killer medication - please do not drive while taking this medication, and do not drink alcohol while taking this medication; hydrocodone can make you sleepy * this medication contains tylenol in it; please do not take extra aczq-sxa-dypuezp tylenol at this time * this medication will cause constipation - see below 2. Constipation - you may need a combination of the following - * ktzd-yys-rfhmdti senokot - 1 tablet daily * miralax 1 serving daily 3. Dexamethasone steroid - take 6mg once daily with food x 5 days, first dose on 11/13/22. This medication will likely cause some elevation of your blood sugars. 4. Celebrex (celecoxib) - this is an anti-inflammatory pill. Do not start this medication until your dexamethasone steroid course is complete. You can take celebrex 100mg twice daily scheduled, or as needed, for your back and hip. * DO NOT take any ghfx-jda-czuotoz motrin, alleve, ibuprofen, naprosyn, diclofenac, or aspirin while taking celebrex 5. To protect your stomach from the effects of steroids and anti-inflammatory please take OMEPRAZOLE 20mg once daily each morning. You can start this tomorrow AM. 6. May use ice to the outer aspect of your right hip, if desired, for additional pain relief. Heating pad for your back is also suggested. 7. Please use a rolling walker in place of your cane at this time. Other - your TSH level (thyroid level) was 0.5. Your hemoglobin a1c (diabetes lab) was 5.7%. Both were normal. Follow-up - see separate section Return to [facility] if - * your back/hip pain is uncontrolled * you have severe constipation from the narcotic pain killers * you have numbness or tingling of either leg * you have inability to walk * any other concerns It was our pleasure to care for you! -Dr Muñoz Pending Studies at Discharge: No Stand-Alone Forms: [facility], Work/School Release, Smoking Cessation Medications and DC Order Prescriptions: New polyethylene glycol 3350 [Miralax] 17 gram Powder In Packet 17 g PO DAILY Qty: 30 0RF Rx Instructions: purchase rpip-jcu-hwkdlti hydrocodone-acetaminophen 5-325 mg Tablet 1 - 2 tab PO Q6H PRN (Reason: pain) Qty: 30 0RF sennosides [Senokot] 8.6 mg Tablet 8.6 mg PO QAM Qty: 30 0RF Rx Instructions: purchase toia-vpe-oybtuzh dexamethasone 6 mg tablet 6 mg PO DAILY 5 Days Qty: 5 0RF Rx Instructions: start 11/13/22; take with food. omeprazole 20 mg capsule,delayed release(DR/EC) 20 mg PO DAILY Qty: 30 0RF Rx Instructions: take first thing in am Continued cholecalciferol (vitamin D3) [Vitamin D3] 25 mcg (1,000 unit) capsule 2,000 units PO QAM clonazepam 0.5 mg Tablet 0.5 mg PO HS vitamin B complex Capsule 1 cap PO QAM loratadine 10 mg Capsule 10 mg PO QAM levothyroxine 50 mcg tablet 50 mcg PO UD Rx Instructions: take 75 mcg on monday,monday,monday take 50 mcg all other days cyclobenzaprine 5 mg tablet 5 mg PO HS bupropion HCl 75 mg tablet 75 mg PO BID Rx Instructions: take at 6 am and 2 pm mirtazapine 15 mg tablet 15 mg PO HS Changed celecoxib [Celebrex] 100 mg Capsule 100 mg PO BID Qty: 60 0RF Discontinued oxycodone 5 mg tablet 5 mg PO Q4H PRN (Reason: pain) Qty: 15 0RF diclofenac sodium 50 mg tablet,delayed release (DR/EC) 50 mg PO Q8 Rx Instructions: take with food Discharge Orders: Discharge Order (Routine); Ordered 11/12/22 Ordered By: Beau Prasad/Other Patient Handouts: OA Hip Admission Data Admit Date/Time: 11/10/22 15:22 Attending Provider: Beau Muñoz Admit Provider: Jamel Higuera Primary Care Provider: Rosenda Robles Other Providers: Jamel Higuera ; Kelton Quezada Coding Diagnoses Lumbar radiculopathy, acute M54.16 Right leg weakness R29.898 Morbid obesity with BMI of 50.0-59.9, adult E66.01; Z68.43 Right thigh pain M79.651 History of prediabetes Z87.898 Hypothyroidism E03.9
== END 2022-11-12 16:13 | disposition home or self-care (01) ==
LOC: ED 08:46 → 3W 08:46 → SUATTDRO 15:22 → 3W 16:16
DX: I73.9 Peripheral vascular disease, unspecified; Z86.711 Personal history of pulmonary embolism; R32 Unspecified urinary incontinence; Z79.890 Hormone replacement therapy; M51.16 Intervertebral disc disorders with radiculopathy, lumbar region; Z88.1 Allergy status to other antibiotic agents; M16.11 Unilateral primary osteoarthritis, right hip; M79.651 Pain in right thigh; G43.909 Migraine, unspecified, not intractable, without status migrainosus; Z88.2 Allergy status to sulfonamides; F41.9 Anxiety disorder, unspecified; Z20.822 Contact with and (suspected) exposure to COVID-19; Z88.8 Allergy status to other drugs, medicaments and biological substances; E03.9 Hypothyroidism, unspecified; E66.01 Morbid (severe) obesity due to excess calories; M79.89 Other specified soft tissue disorders; Z88.5 Allergy status to narcotic agent; R73.03 Prediabetes; Z88.6 Allergy status to analgesic agent; K21.9 Gastro-esophageal reflux disease without esophagitis; Z98.1 Arthrodesis status; Z79.899 Other long term (current) drug therapy; Z68.43 Body mass index [BMI] 50.0-59.9, adult

== ENCOUNTER 2023-03-07 06:55 | Observation (INO) ==
--- NOTE | 2023-03-07 06:59 | Emergency Department Note ---
Impression & Plan Acute exacerbation of chronic low back pain, Intractable low back pain, Lumbar radiculopathy ED Provider Note NAME: CHICHI COTTON AGE: 62 SEX: F ARRIVES VIA: Ambulance INFORMANT: Patient ED PROVIDER(S): Jose Alejandro Beal MD CHIEF COMPLAINT: Acute on chronic back pain. PLAN: Disposition: Admit MEDICAL DECISION MAKING: The patient is a pleasant 62-year-old woman with a past medical history of chronic back pain with history of lumbar decompression who presents to the emergency department via EMS for flare of her chronic back pain that occurred this morning in setting of a flare that she describes has been ongoing since a fall. She had unremarkable lumbar MRI in October and last month. She denies any loss of bowel control. She denies any urinary continence. She reports the pain extends from her right lower back over her hip and down her leg with numbness and tingling. She reports she was feeling the pain when she got out of bed this morning and was able to walk to the bathroom but was unable to get off of the toilet due to the pain. Otherwise denies any fevers, chills, cough, congestion, GI or symptoms. On my evaluation the patient is uncomfortable no acute distress, afebrile stable vital signs. She has mild tenderness of the right lower lumbar region extending distally in the mid-lumbar to the sciatic distribution. She has normal strength of bilateral extremities. DTRs within normal limits. There is no clonus. L5 intact bilaterally. Patient was treated with IM Toradol, dexamethasone, 5 mg oral Valium and lidocaine patch. Upon reevaluation the patient denied any improvement and refused to attempt ambulatory trial. She did agree with plan for admission for further management and possible placement. I did inform the patient that given she has recently had an unremarkable MRI of her lumbar spine in January and also i n October it was not in her best interest to receive IV narcotics for acute on chronic pain. WBC 4.5K nonspecific. H/H and platelets within normal limits. Chemistry without metabolic acidosis. Electrolytes and LFTs without significant abnormality. CPK within normal limits. COVID-19 RNA, KELY test was negative. Case was d/w Dr. Higuera, [facility] hospitalist who will evaluate the patient for admission. Triage Nursing notes reviewed and agree them. Prior/outside medical records reviewed Vital Signs: reviewed Differential diagnosis: Musculoskeletal, disc herniation, fracture, metastatic disease, cord compression, discitis, sciatica, cauda equina, infection, aortic disease, renal colic, gastrointestinal, as well as other pathologies. ER treatment provided: See below. Diagnostics interpreted by me: Cardiac Monitoring: An order for continuous cardiac monitoring was placed and demonstrated normal sinus rhythm, 87 bpm, no ectopy. Laboratory studies: See below Imaging studies: See below Consultation(s): Dr. Higuera, [facility] hospitalist HPI: The patient is a pleasant 62-year-old woman with a past medical history of chronic back pain with history of lumbar decompression who presents to the emergency department via EMS for flare of her chronic back pain that occurred this morning in setting of a flare that she describes has been ongoing since a fall. She had unremarkable lumbar MRI in October and last month. She denies any loss of bowel control. She denies any urinary continence. She reports the pain extends from her right lower back over her hip and down her leg with numbness and tingling. She reports she was feeling the pain when she got out of bed this morning and was able to walk to the bathroom but was unable to get off of the toilet due to the pain. Otherwise denies any fevers, chills, cough, congestion, GI or symptoms. ROS: See above HPI for pertinent positives & negatives. A total of 10 systems reviewed and were otherwise negative. VITALS:See Below PHYSICAL EXAMINATION: GENERAL: Awake, alert, uncomfortable-appearing, in no distress, BMI 52 HENT: Normocephalic, atraumatic. Oropharynx unremarkable. EYES: Normal conjunctiva. Sclera non-icteric. NECK: Supple. No nuchal rigidity. FROM. No JVD. RESPIRATORY: Clear to auscultation. CARDIAC: Regular rate, normal rhythm. Extremities warm and well perfused. Pulses equal. ABDOMEN: Soft, non-distended. No tenderness to palpation. No rebound or guarding. No masses. RECTAL: Deferred. MUSCULOSKELETAL: Chest examination reveals no tenderness. The back is symmetrical on inspection without obvious abnormality. Mild tenderness of the right lower lumbar region extending distally in the mid-lumbar to the sciatic distribution. There is no CVA tenderness to palpation. No joint edema. LOWER EXTREMITIES: Calves are equal size bilaterally and non-tender. No edema. No discoloration. NEURO: Normal sensorium. No sensory or motor deficits noted. She has normal strength of bilateral extremities. DTRs within normal limits. There is no clonus. L5 intact bilaterally. SKIN: No rash or jaundice noted. ED COURSE: PDMP: Reviewed: 22 prescriptions from 12 different providers. Jose Alejandro Beal MD Past Med/Surg History Medical History Anxiety Chronic back pain RLE RADICULOPATHY; LE NEUROPATHY History of COVID-19 06/2022- fever, cough; resolved History of prediabetes Hx of sarcoidosis NO RECENT ISSUES. SINGLE FLARE 2013. Hypothyroidism Morbid obesity with BMI of 50.0-59.9, adult Osteoarthritis Right leg weakness Spinal stenosis Urinary incontinence Surgical History H/O bilateral salpingo-oophorectomy History of appendectomy History of bilateral tubal ligation History of breast biopsy R BREAST-BENIGN History of bronchoscopy TO DX SARCODOSIS 2012 History of carpal tunnel release RT/LEFT History of section X4 History of colonoscopy History of esophagogastroduodenoscopy (EGD) History of myringotomy History of right knee joint replacement Hx of arthroscopy of left knee Hx of spinal surgery S/P cervical spinal fusion GOOD ROM S/P lumbar spinal fusion S/P partial hysterectomy [place] teeth removed Family History Brother Diabetes Colorectal cancer Mother Diabetes Stomach cancer Sarcoidosis Lymphoma Father Coronary heart disease Other Cancer Heart disease Hypertension No family history of adverse response to anesthesia No family history of bleeding disorder Social History Smoking Status: Never smoker Second Hand Exposure: No; Do You Dip or Chew Tobacco: No; Hx Alcohol Use: No Hx Substance Use: No Preferred Language: Romansh Communication Ability: Effective Visual Impairment: No Limitations Foreign Diplomat Required: No Beliefs That Will Affect Care: Amish Amish Beliefs: EVANGELICAL marital status: Current Living Situation: Spouse Current Living Situation Comment: Lives with , patient's brother and SUMEET Feels Safe at Home: Yes Assistive Devices: Cane, Glasses and Walker Allergies Allergies Allergy/AdvReac Type Severity Reaction Status Date / Time hydroxyzine Allergy Intermediate HYPERACTIVE Verified 03/06/23 09:16 levofloxacin Allergy Mild RASH Verified 03/06/23 09:16 Quinolones Allergy Mild RASH Verified 03/06/23 09:16 wheat Allergy Mild GI Verified 03/06/23 09:16 SENSITIVITY diphenhydramine AdvReac Intermediate "KEEPS ME Verified 03/06/23 09:16 AWAKE INSTEAD OF MAKING ME SLEEPY" prednisone AdvReac Intermediate PSYCHOTIC Verified 03/06/23 09:16 COMPLICATIONS tramadol AdvReac Intermediate "OUT OF Verified 03/06/23 09:16 BODY" Sulfa (Sulfonamide AdvReac Mild GI UPSET Verified 03/06/23 09:16 Antibiotics) Home Meds Home Medications Medication Instructions Recorded Confirmed clonazepam 0.5 mg tablet 0.5 mg PO HS PRN ANXIETY 07/17/18 03/07/23 vitamin B complex 1 cap PO QAM 07/17/18 03/07/23 levothyroxine 50 mcg tablet 50 mcg PO DIRECTED 07/25/19 03/07/23 cholecalciferol (vitamin D3) 25 2,000 units PO QAM 06/01/20 03/07/23 mcg (1,000 unit) capsule (Vitamin D3) cyclobenzaprine 5 mg tablet 10 mg PO HS PRN Other 11/10/22 03/07/23 acetaminophen 650 mg 1,300 mg PO TID PRN Pain 02/06/23 03/07/23 tablet,extended release (Tylenol 8 Hour) acetaminophen 300 mg-codeine 30 mg 1 tab PO Q6 PRN pain 03/07/23 03/07/23 tablet Previous Rx's Medication Instructions Recorded lidocaine 5 % topical patch 1 patch topical DAILY PRN pain #15 02/06/23 ea Results & Data (ED) Vital Signs Vital Signs - 24 hr 03/07/23 07:06 03/07/23 07:08 03/07/23 09:00 Temperature 37.5 C Temperature Source Oral Oral Pulse Rate 85 Respiratory Rate 20 Blood Pressure 143/91 H Blood Pressure Mean 108 Pulse Oximetry 100 Oxygen Delivery Method Room Air Room Air Sepsis Recent Fever Within 48 Hours No Sepsis New/Unexplained Change in Mental Status No Sepsis Action Taken by Nursing No Action Required Laboratory Data Attestation: I reviewed the patient's lab results. 03/07/23 10:30 03/07/23 10:30 Lab Results 03/07/23 03/07/23 03/07/23 Range/Units 10:12 10:30 10:30 WBC 4.58 L (4.8-10.8) K/ul RBC 4.61 (4.20-5.40) M/uL Hgb 13.4 (12.0-16.0) g/dl Hct 39.2 (37.0-47.0) % MCV 85.0 (80.0-100.0) fL MCH 29.1 (25.0-34.0) pg MCHC 34.2 (32.0-36.0) g/dL RDW Std Deviation 41.4 (36.4-46.3) fL RDW Coeff of Dilshad 13.4 (11.5-14.5) % Plt Count 232 (130-400) K/uL MPV 9.6 (9.4-12.4) fL Immature Gran % (Auto) 0.9 % Neut % (Auto) 82.5 % Lymph % (Auto) 13.8 % [place] % (Auto) 1.7 % Eos % (Auto) 0.4 % Baso % (Auto) 0.7 % Neut # (Auto) 3.78 (1.40-6.50) K/uL Lymph # (Auto) 0.63 L (1.2-3.4) K/uL [place] # (Auto) 0.08 L (0.11-0.59) K/uL Eos # (Auto) 0.02 (0-0.50) K/uL Baso # (Auto) 0.03 (0-0.2) K/uL Immature Gran # (Auto) 0.04 (0.01-0.20) K/uL Sodium 138 (136-145) mmol/L Potassium 4.0 (3.5-5.1) mmol/L Chloride 104 (98-107) mmol/L Carbon Dioxide 27 (21-32) mmol/L Anion Gap 7 (3-11) BUN 13 (6-23) mg/dl Creatinine 0.55 L (0.6-1.2) mg/dl Est Cr Clr Drug Dosing 133.9 ml/min Est GFR ( Amer) 117.3 ml/min Est GFR (Non-Af Amer) 101.2 ml/min BUN/Creatinine Ratio 23.6 H (10-20) Glucose 137 H (70-99(Fasting)) mg/dl Calcium 9.5 (8.6-10.3) mg/dl Magnesium 1.8 (1.7-2.4) mg/dl Total Bilirubin 0.8 (0.2-1.0) mg/dl AST 25 (13-39) U/L ALT 33 (7-52) U/L Alkaline Phosphatase 58 (34-104) U/L Total Creatine Kinase 31 (26-192) U/L Total Protein 7.2 (6.0-8.3) gm/dl Albumin 4.0 (3.4-5.0) gm/dl Globulin 3.2 (2.5-4.0) gm/dl Albumin/Globulin Ratio 1.3 (0.9-2) SARS-CoV-2, RNA, NAAT NEGATIVE (NEGATIVE) Administered Medications Acetaminophen (Acetaminophen 325 Mg Tab) 650 mg PO Q6H [facility] Stop: 04/06/23 14:59 Last Admin: 03/07/23 20:44 Dose: 650 mg Documented By: Admin: 03/07/23 17:09 Dose: 650 mg Documented By: NOREEN Heparin Sodium (Porcine) (Heparin Sod 5,000 Unit/0.5 Ml Vial) 5,000 units SQ Q8 [facility] Stop: 04/06/23 13:59 Last Admin: 03/07/23 21:43 Dose: 5,000 units Documented By: Admin: 03/07/23 17:08 Dose: 5,000 units Documented By: NOREEN Ketorolac Tromethamine (Ketorolac Tromethamine 15 Mg/Ml Vial) 15 mg IV Q6H PRN PRN Reason: Pain Stop: 03/12/23 20:14 Last Admin: 03/07/23 20:38 Dose: 15 mg Documented By: DENYS Levothyroxine Sodium (Levothyroxine Sodium 50 Mcg Tablet) 50 mcg PO SuTuThSa@0630 [facility] Stop: 04/06/23 13:39 Last Admin: 03/07/23 17:08 Dose: 50 mcg Documented By: NOREEN Miscellaneous (Remove Lidoderm Patch) 1 each N/A DAILY@2100 [facility] Stop: 04/06/23 20:59 Last Admin: 03/07/23 20:40 Dose: 1 each Documented By: DENYS Discontinued Medications Dexamethasone Sodium Phosphate (DexamethasonePf 10 Mg/Ml Vial) 10 mg IM NOW ONE Stop: 03/07/23 07:09 Last Admin: 03/07/23 07:20 Dose: 10 mg Documented By: MAHENDRA Diazepam (Diazepam 5 Mg Tablet) 5 mg PO NOW ONE Stop: 03/07/23 07:09 Last Admin: 03/07/23 07:20 Dose: 5 mg Documented By: MAHENDRA Hydromorphone HCl (Hydromorphone Inj 0.5 Mg/0.5 Ml Syr) 0.5 mg IV NOW STA Stop: 03/07/23 11:28 Last Admin: 03/07/23 13:51 Dose: Not Given Documented By: AM Hydromorphone HCl (Hydromorphone Inj 0.5 Mg/0.5 Ml Syr) Confirm Administered Dose 0.5 mg .ROUTE .STK-MED ONE Stop: 03/07/23 13:39 Last Admin: 03/07/23 14:26 Dose: 0.5 mg Documented By: MAHENDRA Hydromorphone HCl (Hydromorphone Inj 0.5 Mg/0.5 Ml Syr) Confirm Administered Dos e 0.5 mg .ROUTE .STK-MED ONE Stop: 03/07/23 14:26 Last Admin: 03/07/23 14:26 Dose: Not Given Documented By: MAHENDRA Sodium Chloride (Nss 1000ml) 1,000 mls @ 125 mls/hr IV .Q8H [facility] Stop: 03/07/23 16:59 Last Admin: 03/07/23 17:00 Dose: Not Given Documented By: KIESHA Acetaminophen (Ofirmev) 1,000 mg in 100 mls @ 400 mls/hr IV NOW STA Stop: 03/07/23 09:15 Last Infusion: 03/07/23 10:42 Dose: 0 mls/hr Documented By: Admin: 03/07/23 10:27 Dose: 400 mls/hr Documented By: MAHENDRA Ketorolac Tromethamine (Ketorolac Tromethamine 60 Mg/2 Ml Vial) [address] A Stop: 03/07/23 07:09 Last Admin: 03/07/23 07:20 Dose: 60 mg Documented By: MAHENDRA Lidocaine (Lidocaine 5% 1 Patch) 1 patch TD NOW STA Stop: 03/07/23 07:11 Last Admin: 03/07/23 07:19 Dose: 1 patch Documented By: [employer] Imaging Data Radiologist's Impression: Hip/Pelvis X-Ray 03/07/23 11:10 SINGLE VIEW PELVIS; 2 VIEWS RIGHT HIP CLINICAL HISTORY: Right hip pain. FINDINGS: An AP view of the pelvis with AP and frog-leg views of the right hip are compared to study dated 11/01/2022. The skeletal structures are heterogeneously osteopenic. There is no radiographic evidence of acute fracture involving the hips or bony pelvis. Lumbosacral spondylosis and postsurgical change of the lumbar spine is partially imaged. There is severe osteoarthritic change of the right hip with near complete loss of the joint space, bony overgrowth, and sclerosis. This appears modestly progressive as compared to 11/01/2022. Moderate arthritic change and joint space narrowing is seen in the left hip. Sclerotic change is seen in the sacroiliac joints and pubic symphysis. The overlying soft tissues are within normal limits. Surgical clips and phle boliths are noted in the pelvis. IMPRESSION: 1. No acute bony abnormality is identified. 2. Severe osteoarthritic change of the right hip as above. Electronically signed by: Bulmaro Fraga M.D. 03/07/2023 6:24 PM Lumbar Spine MRI 03/07/23 11:10 MR lumbar spine wo con CLINICAL HISTORY: 62 years-old Female with AoC lumbar pain with new RLE numbness/weakness. Acute low back pain with right lower extremity radicular symptoms COMPARISON: 02/06/2023, 02/06/2023, 11/10/2022 TECHNIQUE: Multiplanar, multi sequence MRI of the lumbar spine was performed without intravenous contrast. FINDINGS: Motion degraded exam. Left-sided renal cyst redemonstrated. Transitional lumbosacral anatomy. For purposes of consistency, the L5-S1 intervertebral disc space is described on axial image 17 series 9 compatible with the 11/10/2022 exam. Laminectomy at L2-L5 again noted. Posterior interbody idania and screw fusion hardware with discectomy at L2-L3 with discectomy changes also noted at L3-L4 and L4-L5.. Conus medullaris terminates at T12-L1. Signal within the imaged thoracic spinal cord is unremarkable. No acute fracture, subluxation, endplate erosion or marrow replacing process. T12-L1: Ligamentum flavum thickening with moderate facet arthrosis. No central canal or neural foraminal stenosis. L1-L2: Unchanged mild/moderate vertebral disc space narrowing with mild spondylitic spurring and small post renal disc bulge with ligament flavum thickening and severe facet arthrosis. Flattening of the ventral thecal sac without significant central canal stenosis. Stable moderate bilateral foraminal narrowing. L2-L3: Discectomy with posterior posterior decompression, interbody idania and screw fusion. No central canal or neural foraminal narrowing. L3-L4: Discectomy with posterior decompression. No central canal or neural foraminal narrowing. L4-L5: Discectomy with posterior decompression. No central canal or neural foraminal narrowing. L5-S1: Transitional lumbosacral anatomy. Moderate facet arthrosis. No significant central canal or neural foraminal narrowing. IMPRESSION: 1. Stable exam from the study obtained less than one month earlier on 02/06/2023. 2. No acute fracture or bone marrow edema. 3. Degenerative and postoperative changes as above. 4. Neural foraminal narrowing without significant central canal stenosis. ACT 112: Negative or not required by law. The above report was generated using voice recognition software. It may contain grammatical, syntax or spelling errors. Electronically signed by: Naeem Gomez M.D. 03/07/2023 3:58 PM Lumbar Spine X-Ray 03/07/23 11:10 LUMBAR SPINE 3 VIEWS CLINICAL HISTORY: Low back pain. FINDINGS: Three views of the lumbar spine are compared to study dated 02/01/2023 and correlated with MRI of the lumbar spine performed on the same day, 03/07/2023. The skeletal structures are osteopenic. There is no radiographic evidence of fracture or malalignment. Vertebral body height and alignment are maintained throughout the lumbar spine. There is straightening of the lumbar lordosis. Anterior and lateral marginal osteophytes are seen throughout. Extensive postlaminectomy change with interposition bone grafting is seen throughout the lumbar spine. Interpedicular screws are present in L2 and L3. There has been discectomy at L2-L3, L3-L4, and L4-L5. Moderate disc space narrowing is seen at L5-S1 and mild disc space narrowing is seen at L1-L2. The transverse processes appear intact. The visualized bony pelvis is grossly maintained. Advanced arthritic change is seen in the right hip. Surgical clips project over the pelvis. There are numerous pelvic phleboliths. No bowel obstruction is seen. IMPRESSION: 1. No acute bony abnormality is seen involving the lumbar spine. 2. Osteopenia with postsurgical and mild spondylotic change as above. 3. Advanced arthritic change is noted in the right hip. Dictated: 03/07/2023 6:18 PM Transcribed: 03/07/2023 6:24 PM [facility]io [id number] [email or web address] Electronically signed by: Bulmaro Fraga M.D. 03/07/2023 6:34 PM Discharge Plan Visit Data Chief Complaint: Back Injury/Pain Stated Complaint: LOWER BACK PAIN AND SPASM,rt LEG NUMBNESS ED Provider: Jose Alejandro Beal Discharge Problem: Acute exacerbation of chronic low back pain, Intractable low back pain, Lumbar radiculopathy Patient Disposition: Admitted As Inpatient Discharge Instructions Interventions: ED Discharge Assessment Last Done: 03/07/23 13:41
[2023-03-07] MEDS ORDERED: diazePAM 5 MG TABLET PO ONE (07:08)
[2023-03-07] MEDS ORDERED: KETOROLAC TROMETHAMINE 60 MG/2 ML VIAL IM STA (07:08)
[2023-03-07] MEDS ORDERED: dexAMETHasone**PF** 10 MG/ML VIAL IM ONE (07:08)
[2023-03-07] MEDS ORDERED: LIDOCAINE 5% 1 PATCH TD STA (07:10)
[2023-03-07] MEDS ORDERED: SODIUM CHLORIDE 0.9% 1000ML 1,000 ML IV SCH (09:00)
[2023-03-07] MEDS ORDERED: ACETAMINOPHEN 1,000 MG/100 ML VIAL IV STA (09:01)
--- NOTE | 2023-03-07 10:43 | Electrocardiogram Report ---
Test Reason : Blood Pressure : / mmHG Vent. Rate : 074 BPM Atrial Rate : 074 BPM P-R Int : 192 ms QRS Dur : 076 ms QT Int : 384 ms P-R-T Axes : 024 039 019 degrees QTc Int : 426 ms Normal sinus rhythm Low voltage QRS Borderline ECG When compared with ECG of 17-AUG-2022 07:42, No significant change was found Confirmed by Goyo Devi ([id number]) on 03/07/2023 10:42:58 AM Referred By: REFERRED SELF Confirmed By:Neal Devi
[2023-03-07 10:59] LABS: Basophils # (auto) 0.03 K/uL (0-0.2); Basophils % (auto) 0.7 %; Eosinophils # (auto) 0.02 K/uL (0-0.50); Eosinophils % (auto) 0.4 %; Hematocrit (blood only) 39.2 % (37.0-47.0); Hemoglobin 13.4 g/dl (12.0-16.0); Immature Granulocytes # (auto) 0.04 K/uL (0.01-0.20); Immature Granulocytes % (auto) 0.9 %; Lymphocytes # (auto) 0.63 K/uL (1.2-3.4); Lymphocytes % (auto) 13.8 %; Mean Corpuscular Hemoglobin 29.1 pg (25.0-34.0); Mean Corpuscular Hgb Conc 34.2 g/dL (32.0-36.0); Mean Platelet Volume 9.6 fL (9.4-12.4); Monocytes # (auto) 0.08 K/uL (0.11-0.59); Monocytes % (auto) 1.7 %; Neutrophils # (auto) 3.78 K/uL (1.40-6.50); Neutrophils % (auto) 82.5 %; Platelet Count 232 K/uL (130-400); RDW Coefficient of Variation 13.4 % (11.5-14.5); RDW Standard Deviation 41.4 fL (36.4-46.3); Red Blood Count 4.61 M/uL (4.20-5.40); White Blood Count 4.58 K/ul (4.8-10.8)
[2023-03-07 11:07] LABS: Albumin Globulin Ratio 1.3 (0.9-2); BUN Creatinine Ratio 23.6 (10-20); Bilirubin,Total 0.8 mg/dl (0.2-1.0); Calcium 9.5 mg/dl (8.6-10.3); Creatinine Clr Calc Pharmacy 133.9 ml/min; Est GFR (African American) 117.3 ml/min; Est GFR (Non-African American) 101.2 ml/min; Globulin 3.2 gm/dl (2.5-4.0); Magnesium 1.8 mg/dl (1.7-2.4); Total Protein 7.2 gm/dl (6.0-8.3)
[2023-03-07] MEDS ORDERED: HYDROmorphone INJ 0.5 MG/0.5 ML SYR IV STA (11:27)
[2023-03-07] MEDS ORDERED: NALOXONE HCL 0.4 MG/1 ML VIAL/CARP IV PRN (11:35)
--- NOTE | 2023-03-07 11:47 | History & Physical Report ---
Date of Service March 07, 2023 Assessment & Plan (1) Right leg weakness: Plan: -Admit to med/surge -The patient is experiencing an acute change in her chronic lumbar back pain with RLE pain. She is now experiencing significant RLE weakness/numbness since waking this am -Has previous hx of lumbar spinal fusion with Dr. Quezada -No saddle anesthesia or loss of bowel/bladder function, no recent trauma -High probability that her positioning from her colonoscopy yesterday caused increased inflammation and possible trauma -Will obtain STAT xray of the lumbar spine and right hip and MRI of the lumbar spine for further evaluation -S/P 60 mg IM toradol, 10 mg IM dexamethasone, 5 mg Po valium, 1 gm IV tylenol, and lidocaine patch in the ED without improvement of symptoms -Will give 0.5 mg IV Dilaudid prior to MRI, PRN Narcan ordered -Will add heating pad now with scheduled tylenol -Will hold further sedating medications at this time until her imaging is back, then will adjust pain regimen -Will consult Dr. Quezada/ortho as needed, PT/OT consults placed -Fall precuations -BL SCD's and SQ heparin for DVT PPX -AM CBC, BMP, Mag (2) Back pain: Plan: -See right leg weakness (3) Anxiety: Plan: -Can continue prn HS Clonazepam (4) Hypothyroidism: Plan: -Continue levothyroxine Plan The patient was seen with and discussed with Dr. Higuera at the time of the admission History of Present Illness Chief Complaint: Back Pain Primary Care Provider: Frieda Palacios MD Beryl is a 62 year old female with a PMH significant for chronic lumbar and right leg/hip pain, previous hx of lumbar fusion, and hypothyroidism who presented to the [facility] ED on 03/07/23 with a chief complaint of worsening chronic back and right leg pain. In the ED the patient was noted to be stable. Labs including CBC, CMP, and Covid 19 screen were WNL. Prior to admission the patient was given 1 gm IV Tylenol, 10 mg IM dexamethasone, 60 mg IM toradol, 5 mg PO valium, and a lidocaine patch. The patient refused an ambulatory trial after initial treatment in the ED. We were asked to admit for PT/OT and rehab placement. Of note, the patient did undergo a routine colonoscopy for colon cancer screening, findings were consistent with non-bleeding internal hemorrhoids. She was last admitted to [facility] from 11/10/22-11/12/22 for back/right leg pain S/P fall. During the admission she underwent MRI of the lumbar spine which was negative for significant spinal stenosis or compression. She was evaluated by Dr. Quezada who thought the majority of her symptoms were due to OA of the right hip. Dr. Quezada was going to work with his partner, Dr. Berry to arrange follow-up. At the time of the exam the patient was sitting in bed in pain with her sitting bedside. Her chronic lumbar and right hip pain had been stable since last admission. She ended up seeing [facility] for her right hip, they told her they did not think the hip was the source of her pain. She had an injection in her lumbar spine approximately a month ago which initially improved her symptoms.She underwent the colonoscopy yesterday and felt find after, she was able to go up her stairs last night without issue. This am she woke and was having severe lumbar back pain with radicular symptoms down her right leg. She was able to walked to the bathroom and sit on the toilet, but her symptoms progressed to the point that she was unable to walk out of the bathroom. She is currently experiencing a 10/10 sharp/cramping pain which starts in the lower lumbar spine, it radiates around her right hip and down her right leg into her right foot. She is now experiencing significant numbness and weakness in the RLE, which is new compared to her chronic symptoms. She denies loss of bowel or bladder function and denies saddle anesthesia, as-well-as recen t falls/trauma. The initial treatment given in the ED did not improve her symptoms at all, she is currently in too much pain to try and get out of bed. Please refer to Dr. Higuera's attestation for any changes to the treatment plan Allergies Allergy/AdvReac Type Severity Reaction Status Date / Time hydroxyzine Allergy Intermediate HYPERACTIVE Verified 03/06/23 09:16 levofloxacin Allergy Mild RASH Verified 03/06/23 09:16 Quinolones Allergy Mild RASH Verified 03/06/23 09:16 wheat Allergy Mild GI Verified 03/06/23 09:16 SENSITIVITY diphenhydramine AdvReac Intermediate "KEEPS ME Verified 03/06/23 09:16 AWAKE INSTEAD OF MAKING ME SLEEPY" prednisone AdvReac Intermediate PSYCHOTIC Verified 03/06/23 09:16 COMPLICATIONS tramadol AdvReac Intermediate "OUT OF Verified 03/06/23 09:16 BODY" Sulfa (Sulfonamide AdvReac Mild GI UPSET Verified 03/06/23 09:16 Antibiotics) Home Medications Medication Instructions Recorded Confirmed Type clonazepam 0.5 mg tablet 0.5 mg PO HS PRN ANXIETY 07/17/18 03/07/23 History vitamin B complex 1 cap PO QAM 07/17/18 03/07/23 History levothyroxine 50 mcg tablet 50 mcg PO DIRECTED 07/25/19 03/07/23 History cholecalciferol (vitamin D3) 25 2,000 units PO QAM 06/01/20 03/07/23 History mcg (1,000 unit) capsule (Vitamin D3) cyclobenzaprine 5 mg tablet 10 mg PO HS PRN Other 11/10/22 03/07/23 History acetaminophen 650 mg 1,300 mg PO TID PRN Pain 02/06/23 03/07/23 History tablet,extended release (Tylenol 8 Hour) lidocaine 5 % topical patch 1 patch topical DAILY PRN pain #15 02/06/23 03/07/23 Rx ea acetaminophen 300 mg-codeine 30 mg 1 tab PO Q6 PRN pain 03/07/23 03/07/23 History tablet Past Med/Surg History Medical History (Updated 03/07/23 @ 11:41 by Cesar Bird PA-C) Anxiety Chronic back pain RLE RADICULOPATHY; LE NEUROPATHY History of COVID-19 06/2022- fever, cough; resolved History of prediabetes Hx of sarcoidosis NO RECENT ISSUES. SINGLE FLARE 2012. Hypothyroidism Morbid obesity with BMI of 50.0-59.9, adult Osteoarthritis Right leg weakness Spinal stenosis Urinary incontinence Surgical History H/O bilateral salpingo-oophorectomy History of appendectomy History of bilateral tubal ligation History of breast biopsy R BREAST-BENIGN History of bronchoscopy TO DX SARCODOSIS 2013 History of carpal tunnel release RT/LEFT History of section X4 History of colonoscopy History of esophagogastroduodenoscopy (EGD) History of myringotomy History of right knee joint replacement Hx of arthroscopy of left knee Hx of spinal surgery S/P cervical spinal fusion GOOD ROM S/P lumbar spinal fusion S/P partial hysterectomy [place] teeth removed Family History Brother Diabetes Colorectal cancer Mother Diabetes Stomach cancer Sarcoidosis Lymphoma Father Coronary heart disease Other Cancer Heart disease Hypertension No family history of adverse response to anesthesia No family history of bleeding disorder Social History Smoking Status: Never smoker Second Hand Exposure: No; Do You Dip or Chew Tobacco: No; Hx Alcohol Use: No Hx Substance Use: No Preferred Language: Turkish Communication Ability: Effective Visual Impairment: No Limitations Health Inspector Food Required: No Beliefs That Will Affect Care: None marital status: Current Living Situation: Spouse Current Living Situation Comment: Lives with , patient's brother and SUMEET Feels Safe at Home: Yes Assistive Devices: Cane and Glasses Physical Exam Physical Exam: Physical Exam: General: In moderate distress due to pain, stated age, well-nourished, good hygiene HEENT: Normocephalic, atraumatic, no scleral icterus, pupils around round, symmetrical, and reactive to light, moist mucus membranes, trachea midline, no thyromegaly Chest/Pulm: No respiratory distress, symmetrical chest expansion, clear breath sounds throughout Cardiac: RRR, no murmurs noted Abdomen: Negative for ascites and bruising, normoactive bowel sounds, soft, non-tender to palpation throughout Musculoskeletal: No acute trauma in the BL upper and lower extremities, severely tender to palpation over the lumbar spine/right paraspinal muscles, unable to flex right hip at this time due to pain, right dorsi/plantarflexion 4/5, left 5/5 Extremities: Radial, dorsalis pedis, and posterior tibial pulses are intact and symmetrical, no edema noted in the BL LE's Skin: Warm, dry, no rashes , lesions, or scars noted Neuro: Alert and oriented to person, place, month, year, and president, no focal defects, CN II-XII tested and intact, intact soft touch of the LLE, no sensation to soft touch of the RLE but can feel pressure, no tremors noted Psych: Polite and cooperative during the exam Results & Data Results & Data Vital Signs (Past 12 Hours) Vital Signs Temp Pulse Resp BP Pulse Ox O2 Del Method 03/07/23 09:00 Room Air 03/07/23 07:06 37.5 C 85 20 143/91 H 100 Room Air Laboratory Results Abnormal lab results 03/07/23 03/07/23 Range/Units 10:30 10:30 WBC 4.58 L (4.8-10.8) K/ul Lymph # (Auto) 0.63 L (1.2-3.4) K/uL Payne # (Auto) 0.08 L (0.11-0.59) K/uL Creatinine 0.55 L (0.6-1.2) mg/dl BUN/Creatinine Ratio 23.6 H (10-20) Glucose 137 H (70-99(Fasting)) mg/dl ECG Additional Comments: Normal sinus rhythm Low voltage QRS Borderline ECG When compared with ECG of 17-AUG-2022 07:42, No significant change was found Confirmed by Goyo Devi ([id number]) on 03/07/2023 10:42:58 AM Code Status & VTE Plan Code Status Full code VTE Prophylaxis Plan VTE Prophylaxis will be ordered: Yes Supervising Physician Co-Signing Physician Notes Patient seen and examined, chart reviewed, case discussed with Cesar Bird PA-C and I agree with the assessment and plan as above except as otherwise noted Labs and images reviewed Seen at bedside, she reports she had pain in the last month since a rall in R hip and leg, but has significantly worsened this morning. Was on the toilet and was unable to stand due to worsened pain shooting from R hip down the leg into the foot and can no longer ambulate or bear weight both due to weakness and pain. R leg now feels numb which is new compared to a month ago. Woke up with these symptoms today, has had intermittent pain in the last month. Did have a colonoscopy yesterday and was laying flat for a while. Had a little more pain after colonoscopy but otherwise seemed normal and was able to ambulate slowly up the stairs after the procedure yesterday. Today is completely unable to bear weight on the R leg. Could not even ambulate to the car to get to the ER so called EMS for transport. No fevers, had been cold. No abdominal pain, is a bit gassy with loose bowels after colonoscopy prep. No vomiting, mild nausea. No chest pain/chest pressure. Is breatehign a little more shallow due to pain in her leg, but is not dypsneic. At bedside sensation to soft touch is absent in RLE, can feel pressure but not soft touch. LLE sensation to soft touch normal. R hip flexion unable to be performed due to pain. R ankle dorsi/plantarflexion 4/ 5, L 5/5. Given significant change in sensation and inability to bear weight on R leg agree w/ XR and f/u MRI. Agree w/ recommendations and management as above. PG Care Time/CCT Total # of Minutes Spent Total Time Spent with Patient: Total time spent is greater than 50% in coordination of care (as documented) at patient's floor/unit and/or counseling patient: C[place] [address] INT INP/OBS CARE 2/55MIN Patient Type Established Medical Decision Making Moderate Complexity Diagnoses Right leg weakness R29.898 Back pain M54.9 Anxiety F41.9 Hypothyroidism E03.9
[2023-03-07] MEDS ORDERED: HYDROmorphone INJ 0.5 MG/0.5 ML SYR ONE ×2 (13:38→14:25)
[2023-03-07] MEDS ORDERED: clonazePAM 0.5 MG TAB PO PRN (13:40)
--- NOTE | 2023-03-07 15:59 | Magnetic Resonance Report ---
MR lumbar spine wo con CLINICAL HISTORY: 62 years-old Female with AoC lumbar pain with new RLE numbness/weakness. Acute low back pain with right lower extremity radicular symptoms COMPARISON: 02/06/2023, 02/06/2023, 11/10/2022 TECHNIQUE: Multiplanar, multi sequence MRI of the lumbar spine was performed without intravenous contrast. FINDINGS: Motion degraded exam. Left-sided renal cyst redemonstrated. Transitional lumbosacral anatomy. For pur poses of consistency, the L5-S1 intervertebral disc space is described on axial image 17 series 9 com patible with the 11/10/2022 exam. Laminectomy at L2-L5 again noted. Posterior interbody idania and screw fusion hardware with discectomy at L2-L3 with discectomy changes also noted at L3-L4 and L4-L5.. Conu s medullaris terminates at T12-L1. Signal within the imaged thoracic spinal cord is unremarkable. No acute fracture, subluxation, endplate erosion or marrow replacing process. T12-L1: Ligamentum flavum thickening with moderate facet arthrosis. No central canal or neural tasia inal stenosis. L1-L2: Unchanged mild/moderate vertebral disc space narrowing with mild spondylitic spurring and sma ll post renal disc bulge with ligament flavum thickening and severe facet arthrosis. Flattening of th e ventral thecal sac without significant central canal stenosis. Stable moderate bilateral foraminal narrowing. L2-L3: Discectomy with posterior posterior decompression, interbody idania and screw fusion. No central canal or neural foraminal narrowing. L3-L4: Discectomy with posterior decompression. No central canal or neural foraminal narrowing. L4-L5: Discectomy with posterior decompression. No central canal or neural foraminal narrowing. L5-S1: Transitional lumbosacral anatomy. Moderate facet arthrosis. No significant central canal or n eural foraminal narrowing. IMPRESSION: 1. Stable exam from the study obtained less than one month earlier on 02/06/2023. 2. No acute fracture or bone marrow edema. 3. Degenerative and postoperative changes as above. 4. Neural foraminal narrowing without significant central canal stenosis. ACT 112: Negative or not required by law. The above report was generated using voice recognition software. It may contain grammatical, syntax o r spelling errors. Electronically signed by: Naeem Gomez M.D. 03/07/2023 3:58 PM
[2023-03-07] MEDS: HEPARIN SOD 5,000 UNIT/0.5 ML VIAL SQ SCH ×2 (17:08→21:43)
[2023-03-07] MEDS: LEVOTHYROXINE SODIUM 50 MCG TABLET PO SCH (17:08)
[2023-03-07] MEDS: ACETAMINOPHEN 325 MG TAB PO SCH ×2 (17:09→20:44)
[2023-03-07] MEDS ORDERED: PNEUMOCOCCAL Polysaccharide Vaccine 25mcg/0.5mL vial/Syr IM ONE (17:30)
[2023-03-07] MEDS ORDERED: CYCLOBENZAPRINE HCL 5 MG TAB PO PRN (17:37)
--- NOTE | 2023-03-07 18:25 | XRay Report ---
SINGLE VIEW PELVIS; 2 VIEWS RIGHT HIP CLINICAL HISTORY: Right hip pain. FINDINGS: An AP view of the pelvis with AP and frog-leg views of the right hip are compared to study dated 11/01/2022. The skeletal structures are heterogeneously osteopenic. There is no radiographic nini dence of acute fracture involving the hips or bony pelvis. Lumbosacral spondylosis and postsurgical c hange of the lumbar spine is partially imaged. There is severe osteoarthritic change of the right hip with near complete loss of the joint space, bony overgrowth, and sclerosis. This appears modestly pr ogressive as compared to 11/01/2022. Moderate arthritic change and joint space narrowing is seen in th e left hip. Sclerotic change is seen in the sacroiliac joints and pubic symphysis. The overlying soft tissues are within normal limits. Surgical clips and phleboliths are noted in the pelvis. IMPRESSION: 1. No acute bony abnormality is identified. 2. Severe osteoarthritic change of the right hip as above. Electronically signed by: Bulmaro Fraga M.D. 03/07/2023 6:24 PM
--- NOTE | 2023-03-07 18:35 | XRay Report ---
LUMBAR SPINE 3 VIEWS CLINICAL HISTORY: Low back pain. FINDINGS: Three views of the lumbar spine are compared to study dated 02/01/2023 and correlated with M RI of the lumbar spine performed on the same day, 03/07/2023. The skeletal structures are osteopenic. There is no radiographic evidence of fracture or malalignment. Vertebral body height and alignment ar e maintained throughout the lumbar spine. There is straightening of the lumbar lordosis. Anterior and lateral marginal osteophytes are seen throughout. Extensive postlaminectomy change with interpositio n bone grafting is seen throughout the lumbar spine. Interpedicular screws are present in L2 and L3. There has been discectomy at L2-L3, L3-L4, and L4-L5. Moderate disc space narrowing is seen at L5-S1 and mild disc space narrowing is seen at L1-L2. The transverse processes appear intact. The visualize d bony pelvis is grossly maintained. Advanced arthritic change is seen in the right hip. Surgical cli ps project over the pelvis. There are numerous pelvic phleboliths. No bowel obstruction is seen. IMPRESSION: 1. No acute bony abnormality is seen involving the lumbar spine. 2. Osteopenia with postsurgical and mild spondylotic change as above. 3. Advanced arthritic change is noted in the right hip. Dictated: 03/07/2023 6:18 PM Transcribed: 03/07/2023 6:24 PM Favio [id number] [email or web address] Electronically signed by: Bulmaro Fraga M.D. 03/07/2023 6:34 PM
[2023-03-07] MEDS: KETOROLAC TROMETHAMINE 15 MG/ML VIAL IV PRN (20:38)
[2023-03-07 22:10] LABS: Appearance Urine Cloudy (Clear); Bacteria Urine Automated 1+ (Negative); Bilirubin Urine Negative (Negative); Blood Urine Negative (Negative); Color Urine Dark Yellow; Epithelial Cell Urine Auto >30 /lpf (0-5); Glucose Urine UA Negative (Negative); Ketones Urine 1+ (Negative); Leukocyte Esterase Urine Negative (Negative); Nitrite Urine Negative (Negative); Protein Urine Trace (Negative); Specific Gravity Urine 1.045 (1.000-1.030); Urobilinogen Urine Negative (Negative); pH Urine 5.5 (4.5-7.5)
[2023-03-07 22:33] LABS: Amorphous Sediment Urine Present (None Prsent); Cast Urine Automated 0 /lpf (0-5)
[2023-03-08] MEDS: KETOROLAC TROMETHAMINE 15 MG/ML VIAL IV PRN (02:50)
[2023-03-08] MEDS: ACETAMINOPHEN 325 MG TAB PO SCH ×2 (02:54→08:10)
[2023-03-08] MEDS: HEPARIN SOD 5,000 UNIT/0.5 ML VIAL SQ SCH ×3 (06:21→22:23)
[2023-03-08] MEDS ORDERED: LEVOTHYROXINE SODIUM 75 MCG TABLET PO SCH (06:30)
[2023-03-08 07:31] LABS: Hematocrit (blood only) 35.4 % (37.0-47.0); Hemoglobin 12.2 g/dl (12.0-16.0); Mean Corpuscular Hemoglobin 29.3 pg (25.0-34.0); Mean Corpuscular Hgb Conc 34.5 g/dL (32.0-36.0); Mean Corpuscular Volume 85.1 fL (80.0-100.0); Mean Platelet Volume 10.1 fL (9.4-12.4); Platelet Count 247 K/uL (130-400); RDW Coefficient of Variation 13.2 % (11.5-14.5); RDW Standard Deviation 40.6 fL (36.4-46.3); Red Blood Count 4.16 M/uL (4.20-5.40); White Blood Count 6.82 K/ul (4.8-10.8)
[2023-03-08 07:52] LABS: BUN Creatinine Ratio 32.9 (10-20); Calcium 9.7 mg/dl (8.6-10.3); Creatinine Clr Calc Pharmacy 103.3 ml/min; Est GFR (African American) 108.4 ml/min; Est GFR (Non-African American) 93.5 ml/min; Potassium 4.1 mmol/L (3.5-5.1)
--- NOTE | 2023-03-08 08:33 | Hospitalist Progress Note ---
Date of Service March 08, 2023 Assessment & Plan (1) Right leg weakness: Plan: The patient is experiencing an acute change in her chronic lumbar back pain with RLE pain. She is now experiencing significant RLE weakness/numbness since waking AM 03/07 Hx lumbar fusion w/ Dr Quezada. No saddle anesthesia/loss bowel/bladder function at present or recent trauma. CK not elevated. Mag 2.0 Positioning from c-scope day prior possibly exacerbated pain MRI lumbar spine without significant change compared to prior Xray lumbar spine noting advanced arthritic change in the right hip Review of prior hospitalization, eval by Dr Quezada and felt to be related to her hip and wanted f/u Dr Berry. She was seen by Dr Jackson outpatient for eval and felt was related to her back. Had prior epidural injection without improvement, making spine less likely. She is requesting Dr Quezada to review imaging from this admission -- consultation placed Ortho consult for Dr Jackson for consideration for hip replacement Pain management consulted for possible ?SI injection to see if any relief Pain control --Continue heating pad, lidoderm patch, scheduled tylenol 650 q4h --Continue flexeril, toradol prn. --Added low dose diluadid as only thing that took the edge off. PT/OT consulted, fall precautions in place. Likely will need some rehab but will monitor course DVT proph - SCDs, Heparin SQ (2) Osteoarthritis of right hip: Plan: noted, suspect contributing to ambulatory dysfunction (3) Lumbar radiculopathy: Plan: ?combination of back/hip pain w/ positioning for recent c-scope MRI lumbar spine/ortho consulted as above pain control/pt/ot consulted (4) Back pain: Plan: See right leg weakness (5) Anxiety: Plan: Can continue prn HS Clonazepam (6) Hypothyroidism: Plan: TSH wnl earlier this year Continue usual levothyroxine (7) Acute exacerbation of chronic low back pain: Admission and Anticipated Discharge Date Admission Date: March 07, 2023 Supervising Physician Co-Signing Physician Notes The patient was not seen by me. The chart was reviewed. Case discussed with POLLY Simpson. Agree with assessment and plan Subjective Eval this morning, walking back from bathroom with OT. Pain increases with increased ambulation. Had previously seen Dr Quezada who thought was her hip and then was seen by Dr Jackson (wasn't able to have Dr Berry due to insurance availability with her insurance) and was told was her back. Has had injection to her hip without significant improvement as well as epidural injection which was not helpful which make it seem more likely related to the hip with exception of numbness to her right knee down to her foot which could be from the back. Discussed will ask Dr Quezada to review MRI but doesn't appear much change. Hip w/ severe OA, will consult Dr Jackson's group as well as pain management for consideration for SI joint injection for additional relief. Dose of Dilaudid given in ER x1 but nothing further. Notes that took the edge off. She notes toradol also minimally effective. Will order dose of diluadid x 1 now and monitor response/prn available as needed. Some foul urine but hadn't washed up much. No increased frequency/burning. Monitoring urine cx but no abx at this time as asymptomatic. Physical Exam Physical Exam: General: WD obese female walking back from bathroom with OT, increased pain with ambulation reported HEENT: head normocephalic, atraumatic, mmm, trachea midline Resp: CTA, no w/c, on room air CV: RRR, no significant m/r/g, no pitting edema/calf tenderness GI: +BS, soft/NT MSK/NEURO: tenderness to palpation lumbar spine, reproducible, no moris step off slight decreased plantar flexion on the left compared to the right, 4/5 compared to 5/5 sensation to light touch diminished to the level of the knee but able to feel pressure Psych: AOx3, cooperative with exam Results & Data Results & Data Vital Signs (Past 12 Hours) Vital Signs Temp Pulse Pulse Resp BP Pulse Ox Pulse Ox 03/08/23 07:58 37.1 C 75 14 118/68 97 03/07/23 20:38 03/07/23 20:38 94 03/07/23 21:39 36.6 C 99 H 18 112/61 94 O2 Del Method O2 Del Method 03/08/23 07:58 Room Air 03/07/23 20:38 Room Air 03/07/23 20:38 Room Air 03/07/23 21:39 Room Air Laboratory Results 03/08/23 03/08/23 03/08/23 Range/Units 08:32 06:23 06:23 WBC 6.82 (4.8-10.8) K/ul RBC 4.16 L (4.20-5.40) M/uL Hgb 12.2 (12.0-16.0) g/dl Hct 35.4 L (37.0-47.0) % MCV 85.1 (80.0-100.0) fL MCH 29.3 (25.0-34.0) pg MCHC 34.5 (32.0-36.0) g/dL RDW Std Deviation 40.6 (36.4-46.3) fL RDW Coeff of Dilshad 13.2 (11.5-14.5) % Plt Count 247 (130-400) K/uL MPV 10.1 (9.4-12.4) fL Immature Gran % (Auto) % Neut % (Auto) % Lymph % (Auto) % Crowley % (Auto) % Eos % (Auto) % Baso % (Auto) % Neut # (Auto) (1.40-6.50) K/uL Lymph # (Auto) (1.2-3.4) K/uL Crowley # (Auto) (0.11-0.59) K/uL Eos # (Auto) (0-0.50) K/uL Baso # (Auto) (0-0.2) K/uL Immature Gran # (Auto) (0.01-0.20) K/uL Sodium 139 (136-145) mmol/L Potassium 4.1 (3.5-5.1) mmol/L Chloride 105 (98-107) mmol/L Carbon Dioxide 25 (21-32) mmol/L Anion Gap 9 (3-11) BUN 23 (6-23) mg/dl Creatinine 0.70 (0.6-1.2) mg/dl Est Cr Clr Drug Dosing 103.3 ml/min Est GFR ( Amer) 108.4 ml/min Est GFR (Non-Af Amer) 93.5 ml/min BUN/Creatinine Ratio 32.9 H (10-20) Glucose 126 H (70-99(Fasting)) mg/dl Calcium 9.7 (8.6-10.3) mg/dl Magnesium 2.0 (1.7-2.4) mg/dl Total Bilirubin (0.2-1.0) mg/dl AST (13-39) U/L ALT (7-52) U/L Alkaline Phosphatase (34-104) U/L Total Creatine Kinase (26-192) U/L Total Protein (6.0-8.3) gm/dl Albumin (3.4-5.0) gm/dl Globulin (2.5-4.0) gm/dl Albumin/Globulin Ratio (0.9-2) Urine Color Urine Appearance (Clear) Urine pH (4.5-7.5) Ur Specific Troy (1.000-1.030) Urine Protein (Negative) Urine Glucose (UA) (Negative) Urine Ketones (Negative) Urine Blood (Negative) Urine Nitrite (Negative) Urine Bilirubin (Negative) Urine Urobilinogen (Negative) Ur Leukocyte Esterase (Negative) Urine WBC (Auto) (0-5) /hpf Urine RBC (Auto) (0-4) /hpf U Hyaline Cast (Auto) (0-5) /lpf U Epithel Cells (Auto) (0-5) /lpf Urine Bacteria (Auto) (Negative) Amorphous Sediment (None Prsent) Lyme Disease IgG Ab Negative (Negative) Lyme Disease IgM Ab Negative (Negative) SARS-CoV-2, RNA, NAAT (NEGATIVE) 03/07/23 03/07/23 03/07/23 Range/Units 21:57 10:30 10:30 WBC 4.58 L (4.8-10.8) K/ul RBC 4.61 (4.20-5.40) M/uL Hgb 13.4 (12.0-16.0) g/dl Hct 39.2 (37.0-47.0) % MCV 85.0 (80.0-100.0) fL MCH 29.1 (25.0-34.0) pg MCHC 34.2 (32.0-36.0) g/dL RDW Std Deviation 41.4 (36.4-46.3) fL RDW Coeff of Dilshad 13.4 (11.5-14.5) % Plt Count 232 (130-400) K/uL MPV 9.6 (9.4-12.4) fL Immature Gran % (Auto) 0.9 % Neut % (Auto) 82.5 % Lymph % (Auto) 13.8 % Crowley % (Auto) 1.7 % Eos % (Auto) 0.4 % Baso % (Auto) 0.7 % Neut # (Auto) 3.78 (1.40-6.50) K/uL Lymph # (Auto) 0.63 L (1.2-3.4) K/uL Crowley # (Auto) 0.08 L (0.11-0.59) K/uL Eos # (Auto) 0.02 (0-0.50) K/uL Baso # (Auto) 0.03 (0-0.2) K/uL Immature Gran # (Auto) 0.04 (0.01-0.20) K/uL Sodium 138 (136-145) mmol/L Potassium 4.0 (3.5-5.1) mmol/L Chloride 104 (98-107) mmol/L Carbon Dioxide 27 (21-32) mmol/L Anion Gap 7 (3-11) BUN 13 (6-23) mg/dl Creatinine 0.55 L (0.6-1.2) mg/dl Est Cr Clr Drug Dosing 133.9 ml/min Est GFR ( Amer) 117.3 ml/min Est GFR (Non-Af Amer) 101.2 ml/min BUN/Creatinine Ratio 23.6 H (10-20) Glucose 137 H (70-99(Fasting)) mg/dl Calcium 9.5 (8.6-10.3) mg/dl Magnesium 1.8 (1.7-2.4) mg/dl Total Bilirubin 0.8 (0.2-1.0) mg/dl AST 25 (13-39) U/L ALT 33 (7-52) U/L Alkaline Phosphatase 58 (34-104) U/L Total Creatine Kinase 31 (26-192) U/L Total Protein 7.2 (6.0-8.3) gm/dl Albumin 4.0 (3.4-5.0) gm/dl Globulin 3.2 (2.5-4.0) gm/dl Albumin/Globulin Ratio 1.3 (0.9-2) Urine Color Dark Yellow Urine Appearance Cloudy A (Clear) Urine pH 5.5 (4.5-7.5) Ur Specific Troy 1.045 H (1.000-1.030) Urine Protein Trace H (Negative) Urine Glucose (UA) Negative (Negative) Urine Ketones 1+ H (Negative) Urine Blood Negative (Negative) Urine Nitrite Negative (Negative) Urine Bilirubin Negative (Negative) Urine Urobilinogen Negative (Negative) Ur Leukocyte Esterase Negative (Negative) Urine WBC (Auto) 10-30 H (0-5) /hpf Urine RBC (Auto) 5-10 H (0-4) /hpf U Hyaline Cast (Auto) 0 (0-5) /lpf U Epithel Cells (Auto) >30 H (0-5) /lpf Urine Bacteria (Auto) 1+ H (Negative) Amorphous Sediment Present A (None Prsent) Lyme Disease IgG Ab (Negative) Lyme Disease IgM Ab (Negative) SARS-CoV-2, RNA, NAAT (NEGATIVE) 03/07/23 Range/Units 10:12 WBC (4.8-10.8) K/ul RBC (4.20-5.40) M/uL Hgb (12.0-16.0) g/dl Hct (37.0-47.0) % MCV (80.0-100.0) fL MCH (25.0-34.0) pg MCHC (32.0-36.0) g/dL RDW Std Deviation (36.4-46.3) fL RDW Coeff of Dilshad (11.5-14.5) % Plt Count (130-400) K/uL MPV (9.4-12.4) fL Immature Gran % (Auto) % Neut % (Auto) % Lymph % (Auto) % Crowley % (Auto) % Eos % (Auto) % Baso % (Auto) % Neut # (Auto) (1.40-6.50) K/uL Lymph # (Auto) (1.2-3.4) K/uL Crowley # (Auto) (0.11-0.59) K/uL Eos # (Auto) (0-0.50) K/uL Baso # (Auto) (0-0.2) K/uL Immature Gran # (Auto) (0.01-0.20) K/uL Sodium (136-145) mmol/L Potassium (3.5-5.1) mmol/L Chloride (98-107) mmol/L Carbon Dioxide (21-32) mmol/L Anion Gap (3-11) BUN (6-23) mg/dl Creatinine (0.6-1.2) mg/dl Est Cr Clr Drug Dosing ml/min Est GFR ( Amer) ml/min Est GFR (Non-Af Amer) ml/min BUN/Creatinine Ratio (10-20) Glucose (70-99(Fasting)) mg/dl Calcium (8.6-10.3) mg/dl Magnesium (1.7-2.4) mg/dl Total Bilirubin (0.2-1.0) mg/dl AST (13-39) U/L ALT (7-52) U/L Alkaline Phosphatase (34-104) U/L Total Creatine Kinase (26-192) U/L Total Protein (6.0-8.3) gm/dl Albumin (3.4-5.0) gm/dl Globulin (2.5-4.0) gm/dl Albumin/Globulin Ratio (0.9-2) Urine Color Urine Appearance (Clear) Urine pH (4.5-7.5) Ur Specific Troy (1.000-1.030) Urine Protein (Negative) Urine Glucose (UA) (Negative) Urine Ketones (Negative) Urine Blood (Negative) Urine Nitrite (Negative) Urine Bilirubin (Negative) Urine Urobilinogen (Negative) Ur Leukocyte Esterase (Negative) Urine WBC (Auto) (0-5) /hpf Urine RBC (Auto) (0-4) /hpf U Hyaline Cast (Auto) (0-5) /lpf U Epithel Cells (Auto) (0-5) /lpf Urine Bacteria (Auto) (Negative) Amorphous Sediment (None Prsent) Lyme Disease IgG Ab (Negative) Lyme Disease IgM Ab (Negative) SARS-CoV-2, RNA, NAAT NEGATIVE (NEGATIVE) Diagnostic Findings Hip/Pelvis X-Ray 03/07/23 11:10 SINGLE VIEW PELVIS; 2 VIEWS RIGHT HIP CLINICAL HISTORY: Right hip pain. FINDINGS: An AP view of the pelvis with AP and frog-leg views of the right hip are compared to study dated 11/01/2022. The skeletal structures are heterogeneously osteopenic. There is no radiographic evidence of acute fracture involving the hips or bony pelvis. Lumbosacral spondylosis and postsurgical change of the lumbar spine is partially imaged. There is severe osteoarthritic change of the right hip with near complete loss of the joint space, bony overgrowth, and sclerosis. This appears modestly progressive as compared to 11/01/2022. Moderate arthritic change and joint space narrowing is seen in the left hip. Sclerotic change is seen in the sacroiliac joints and pubic symphysis. The overlying soft tissues are within normal limits. Surgical clips and phleboliths are noted in the pelvis. IMPRESSION: 1. No acute bony abnormality is identified. 2. Severe osteoarthritic change of the right hip as above. Electronically signed by: Bulmaro Fraga M.D. 03/07/2023 6:24 PM Lumbar Spine MRI 03/07/23 11:10 MR lumbar spine wo con CLINICAL HISTORY: 62 years-old Female with AoC lumbar pain with new RLE numbness/weakness. Acute low back pain with right lower extremity radicular symptoms COMPARISON: 02/06/2023, 02/06/2023, 11/10/2022 TECHNIQUE: Multiplanar, multi sequence MRI of the lumbar spine was performed without intravenous contrast. FINDINGS: Motion degraded exam. Left-sided renal cyst redemonstrated. Transitional lumbosacral anatomy. For purposes of consistency, the L5-S1 intervertebral disc space is described on axial image 17 series 9 compatible with the 11/10/2022 exam. Laminectomy at L2-L5 again noted. Posterior interbody idania and screw fusion hardware with discectomy at L2-L3 with discectomy changes also noted at L3-L4 and L4-L5.. Conus medullaris terminates at T12-L1. Signal within the imaged thoracic spinal cord is unremarkable. No acute fracture, subluxation, endplate erosion or marrow replacing process. T12-L1: Ligamentum flavum thickening with moderate facet arthrosis. No central canal or neural foraminal stenosis. L1-L2: Unchanged mild/moderate vertebral disc space narrowing with mild spondylitic spurring and small post renal disc bulge with ligament flavum thickening and severe facet arthrosis. Flattening of the ventral thecal sac without significant central canal stenosis. Stable moderate bilateral foraminal narrowing. L2-L3: Discectomy with posterior posterior decompression, interbody idania and screw fusion. No central canal or neural foraminal narrowing. L3-L4: Discectomy with posterior decompression. No central canal or neural foraminal narrowing. L4-L5: Discectomy with posterior decompression. No central canal or neural foraminal narrowing. L5-S1: Transitional lumbosacral anatomy. Moderate facet arthrosis. No significant central canal or neural foraminal narrowing. IMPRESSION: 1. Stable exam from the study obtained less than one month earlier on 02/06/2023. 2. No acute fracture or bone marrow edema. 3. Degenerative and postoperative changes as above. 4. Neural foraminal narrowing without significant central canal stenosis. ACT 112: Negative or not required by law. The above report was generated using voice recognition software. It may contain grammatical, syntax or spelling errors. Electronically signed by: Naeem Gomez M.D. 03/07/2023 3:58 PM Lumbar Spine X-Ray 03/07/23 11:10 LUMBAR SPINE 3 VIEWS CLINICAL HISTORY: Low back pain. FINDINGS: Three views of the lumbar spine are compared to study dated 02/01/2023 and correlated with MRI of the lumbar spine performed on the same day, 03/07/2023. The skeletal structures are osteopenic. There is no radiographic evidence of fracture or malalignment. Vertebral body height and alignment are maintained throughout the lumbar spine. There is straightening of the lumbar lordosis. Anterior and lateral marginal osteophytes are seen throughout. Extensive postlaminectomy change with interposition bone grafting is seen throughout the lumbar spine. Interpedicular screws are present in L2 and L3. There has been discectomy at L2-L3, L3-L4, and L4-L5. Moderate disc space narrowing is seen at L5-S1 and mild disc space narrowing is seen at L1-L2. The transverse processes appear intact. The visualized bony pelvis is grossly maintained. Advanced arthritic change is seen in the right hip. Surgical clips project over the pelvis. There are numerous pelvic phleboliths. No bowel obstruction is seen. IMPRESSION: 1. No acute bony abnormality is seen involving the lumbar spine. 2. Osteopenia with postsurgical and mild spondylotic change as above. 3. Advanced arthritic change is noted in the right hip. Dictated: 03/07/2023 6:18 PM Transcribed: 03/07/2023 6:24 PM Favio [id number] [email or web address] Electronically signed by: Bulmaro Fraga M.D. 03/07/2023 6:34 PM PG Care Time/CCT Total # of Minutes Spent Total Time Spent with Patient: Total time spent is greater than 50% in coordination of care (as documented) at patient's floor/unit and/or counseling patient: Coding Level of Care Code 06532 SUB INP/OBS CARE 3/50MIN Diagnoses Right leg weakness R29.898 Osteoarthritis of right hip M16.11 Lumbar radiculopathy M54.16 Back pain M54.9 Anxiety F41.9 Hypothyroidism E03.9 Acute exacerbation of chronic low back pain M54.50; G89.29
[2023-03-08 10:01] LABS: Lyme Ab IgG w/WB Rflx Negative (Negative); Lyme Ab IgM w/WB Rflx Negative (Negative)
[2023-03-08] MEDS: HYDROmorphone INJ 0.5 MG/0.5 ML SYR IV PRN ×3 (10:39→20:41)
[2023-03-08] MEDS ORDERED: dexAMETHasone 4 MG TAB PO STA (11:36)
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
[2023-03-08] MEDS: GABAPENTIN 100 MG CAP PO SCH ×2 (13:48→20:43)
[2023-03-08] MEDS: ACETAMINOPHEN 500 MG TAB PO SCH ×3 (13:48→20:42)
[2023-03-08] MEDS ORDERED: cefTRIAXone SODIUM 1,000 MG in DEXTROSE 5% AD-VAN 50 ML IV SCH (16:45)
[2023-03-08] MEDS: cefTRIAXone SODIUM 2,000 MG in DEXTROSE 5% 50 ML IV SCH (19:00)
[2023-03-09] MEDS: ACETAMINOPHEN 500 MG TAB PO SCH ×3 (00:51→08:12)
[2023-03-09] MEDS: HYDROmorphone INJ 0.5 MG/0.5 ML SYR IV PRN ×3 (00:52→10:16)
[2023-03-09] MEDS: HEPARIN SOD 5,000 UNIT/0.5 ML VIAL SQ SCH (05:26)
[2023-03-09] MEDS: LEVOTHYROXINE SODIUM 50 MCG TABLET PO SCH (05:26)
[2023-03-09] MEDS: KETOROLAC TROMETHAMINE 15 MG/ML VIAL IV PRN ×2 (05:31→12:35)
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
[2023-03-09] MEDS: GABAPENTIN 100 MG CAP PO SCH ×2 (08:12→16:15)
--- NOTE | 2023-03-09 08:39 | Orthopedic Consultation ---
Date of Consultation March 09, 2023 Assessment & Plan (1) Spinal stenosis: Plan This point patient's right leg pain is most likely positional from the colonoscopy. She has severe advanced osteoarthritis of the right hip. This is most likely the primary etiology of her pain. She certainly has a evidence of adjacent level stenosis however this appears to be stable. Is most likely secondary to her predominant hip arthritis. I recommend that she consider total hip arthroplasty before any further spine procedure. Patient stands and agrees. History of Present Illness Reason for Consultation: Right leg pain Attending Physician: Edgar Mejía MD History of Present Illness This is a 62-year-old female known to me that presents with inability ambulate. She had undergone a colonoscopy and afterwards had marked increased limitation with right leg pain. The pain is in the buttock rating to the groin and anterior thigh. Weightbearing is markedly limited. She feels somewhat improved today. Left lower extremities asymptomatic. Allergies Allergy/AdvReac Type Severity Reaction Status Date / Time hydroxyzine Allergy Intermediate HYPERACTIVE Verified 03/06/23 09:16 levofloxacin Allergy Mild RASH Verified 03/06/23 09:16 Quinolones Allergy Mild RASH Verified 03/06/23 09:16 wheat Allergy Mild GI Verified 03/06/23 09:16 SENSITIVITY diphenhydramine AdvReac Intermediate "KEEPS ME Verified 03/06/23 09:16 AWAKE INSTEAD OF MAKING ME SLEEPY" prednisone AdvReac Intermediate PSYCHOTIC Verified 03/06/23 09:16 COMPLICATIONS tramadol AdvReac Intermediate "OUT OF Verified 03/06/23 09:16 BODY" Sulfa (Sulfonamide AdvReac Mild GI UPSET Verified 03/06/23 09:16 Antibiotics) Home Medications Medication Instructions Recorded Confirmed Type clonazepam 0.5 mg tablet 0.5 mg PO HS PRN ANXIETY 07/17/18 03/07/23 History vitamin B complex 1 cap PO QAM 07/17/18 03/07/23 History levothyroxine 50 mcg tablet 50 mcg PO DIRECTED 07/25/19 03/07/23 History cholecalciferol (vitamin D3) 25 2,000 units PO QAM 06/01/20 03/07/23 History mcg (1,000 unit) capsule (Vitamin D3) cyclobenzaprine 5 mg tablet 10 mg PO HS PRN Other 11/10/22 03/07/23 History acetaminophen 650 mg 1,300 mg PO TID PRN Pain 02/06/23 03/07/23 History tablet,extended release (Tylenol 8 Hour) lidocaine 5 % topical patch 1 patch topical DAILY PRN pain #15 02/06/23 03/07/23 Rx ea acetaminophen 300 mg-codeine 30 mg 1 tab PO Q6 PRN pain 03/07/23 03/07/23 History tablet Patient History Medical History Anxiety Chronic back pain RLE RADICULOPATHY; LE NEUROPATHY History of COVID-19 06/2022- fever, cough; resolved History of prediabetes Hx of sarcoidosis NO RECENT ISSUES. SINGLE FLARE 2012. Hypothyroidism Morbid obesity with BMI of 50.0-59.9, adult Osteoarthritis Right leg weakness Spinal stenosis Urinary incontinence Surgical History H/O bilateral salpingo-oophorectomy History of appendectomy History of bilateral tubal ligation History of breast biopsy R BREAST-BENIGN History of bronchoscopy TO DX SARCODOSIS 2013 History of carpal tunnel release RT/LEFT History of section X4 History of colonoscopy History of esophagogastroduodenoscopy (EGD) History of myringotomy History of right knee joint replacement Hx of arthroscopy of left knee Hx of spinal surgery S/P cervical spinal fusion GOOD ROM S/P lumbar spinal fusion S/P partial hysterectomy [place] teeth removed Family History Brother Diabetes Colorectal cancer Mother Diabetes Stomach cancer Sarcoidosis Lymphoma Father Coronary heart disease Other Cancer Heart disease Hypertension No family history of adverse response to anesthesia No family history of bleeding disorder Social History Smoking Status: Never smoker Second Hand Exposure: No; Do You Dip or Chew Tobacco: No; Hx Alcohol Use: No Hx Substance Use: No Preferred Language: Wolof Communication Ability: Effective Visual Impairment: No Limitations Mri Supervisor Required: No Beliefs That Will Affect Care: Yazidism Yazidism Beliefs: CONFUCIANIST marital status: Current Living Situation: Spouse Current Living Situation Comment: Lives with , patient's brother and SUMEET Feels Safe at Home: Yes Assistive Devices: Cane and Walker Physical Exam Physical Exam: On exam she is currently comfortable. She has reasonable plantarflexion dorsiflexion bilaterally. She is marked limitation with hip flexion on the right compared to the left. Markedly positive logroll on the right compared to left. Sensory is intact. Results & Data Vital Signs (Past 12 Hours) Vital Signs Temp Pulse Resp BP Pulse Ox Pulse Ox O2 Del Method 03/09/23 07:13 37.0 C 68 17 119/73 96 Room Air 03/08/23 20:40 Room Air 03/08/23 20:40 95 03/08/23 22:06 36.5 C 77 16 127/66 95 Room Air O2 Del Method 03/09/23 07:13 03/08/23 20:40 03/08/23 20:40 Room Air 03/08/23 22:06
--- NOTE | 2023-03-09 08:59 | Hospitalist Progress Note ---
Date of Service March 09, 2023 Assessment & Plan (1) Right leg weakness: Plan: The patient is experiencing an acute change in her chronic lumbar back pain with RLE pain. She is now experiencing significant RLE weakness/numbness since waking AM 03/07 Hx lumbar fusion w/ Dr Quezada. No saddle anesthesia/loss bowel/bladder function at present or recent trauma. CK not elevated. Mag 2.0 Positioning from c-scope day prior possibly exacerbated pain MRI lumbar spine without significant change compared to prior Xray lumbar spine noting advanced arthritic change in the right hip Lyme testing negative Prior doppler negative for DVT Review of prior hospitalization, eval by Dr Quezada and felt to be related to her hip and wanted f/u Dr Berry. She was seen by Dr Jackson outpatient for eval and felt was related to her back. Had prior epidural injection without improvement, making spine less likely. She is requesting Dr Quezada to review imaging from this admission -- consultation placed Ortho consult for Dr Jackson for consideration for hip replacement Pain management consulted for possible ?SI injection to see if any relief Pain control --Continue heating pad, lidoderm patch, scheduled tylenol 650 q4h, flexeril, toradol prn. --Added low dose diluadid as only thing that took the edge off. PT/OT consulted, fall precautions in place. Likely will need some rehab but will monitor course DVT proph - SCDs, Heparin SQ 03/09 --> Orthopedics added decadron 4mg daily, tylenol 500mg q4 scheduled, gabapentin 100mg TID -- seems to be working. Can send prn narcotic for short term break through Orthopedics recommending continued weight loss Dr Quezada saw -- rec having hip addressed prior to any further back surgery Abx w/ ceftriaxone started empirically for possible UTI, monitor cx and transition to oral to complete coverage (no burning/frequency, but reported foul smelling urine) -- cx pin-point growth, re-incubating (2) Osteoarthritis of right hip: Plan: noted, suspect contributing to ambulatory dysfunction (3) Lumbar radiculopathy: Plan: ?combination of back/hip pain w/ positioning for recent c-scope MRI lumbar spine/ortho consulted as above pain control/pt/ot consulted (4) Back pain: Plan: See right leg weakness (5) Anxiety: Plan: Can continue prn HS Clonazepam (6) Hypothyroidism: Plan: TSH wnl earlier this year Continue usual levothyroxine (7) Acute exacerbation of chronic low back pain: Admission and Anticipated Discharge Date Admission Date: March 07, 2023 Subjective Eval this morning. Doing alright. Seen by Dr Jackson and Dr Quezada who believe it is her hip. Rec medications to manage pain and weight loss. Patient reports doing to well w/ therapy and told [facility] not to accept. will confirm w/ CM. She would like HH therapy if able. She notes she didn't think about UTI but notes after getting that dose last evening she had improvement in symptoms reported. Results & Data Results & Data Vital Signs (Past 12 Hours) Vital Signs Temp Pulse Resp BP Pulse Ox O2 Del Method 03/09/23 07:13 37.0 C 68 17 119/73 96 Room Air 03/08/23 22:06 36.5 C 77 16 127/66 95 Room Air PG Care Time/CCT Total # of Minutes Spent Total Time Spent with Patient: Total time spent is greater than 50% in coordination of care (as documented) at patient's floor/unit and/or counseling patient: Coding Diagnoses Right leg weakness R29.898 Osteoarthritis of right hip M16.11 Lumbar radiculopathy M54.16 Back pain M54.9 Anxiety F41.9 Hypothyroidism E03.9 Acute exacerbation of chronic low back pain M54.50; G89.29
[2023-03-09] MEDS ORDERED: dexAMETHasone 4 MG TAB PO SCH (09:00)
[2023-03-09 09:01] LABS: Hematocrit (blood only) 37.6 % (37.0-47.0); Hemoglobin 12.8 g/dl (12.0-16.0); Mean Corpuscular Hemoglobin 29.3 pg (25.0-34.0); Platelet Count 233 K/uL (130-400); RDW Coefficient of Variation 13.3 % (11.5-14.5); RDW Standard Deviation 41.2 fL (36.4-46.3); Red Blood Count 4.37 M/uL (4.20-5.40)
--- NOTE | 2023-03-09 09:13 | Pain Management Consultation ---
Date of Consultation March 09, 2023 Assessment & Plan (1) Osteoarthritis of right hip: (2) Postlaminectomy syndrome of lumbosacral region: (3) Acute exacerbation of chronic low back pain: (4) Sacroiliac joint pain: (5) Morbid obesity: Plan 1. It appears likely that her predominant pain generator is the right severe hip OA. She reports significant short-term relief from an intra-articular hip injection without sustained improvement. She reportedly has follow-up with Dr. Delgado in March with the likelihood of pursuing SYLVIA in her future. Not recommend any further intra-articular hip injections at this time. 2. Patient does appear to have mild SI joint region pain. She could be considered for SI joint injection in the outpatient setting. She will return to Dr. Lora for discussion regarding pursuing a right SI joint injection. 3. Agree with gabapentin 100 mg 3 times daily. Consider further progression of dose to 300 mg 3 times daily over the next few weeks pending tolerability. 4. Would recommend lumbar MRI with contrast should she have persisting radicul ar pattern pain in an attempt to further investigate for epidural fibrosis potentially contributing to her radicular pattern pain complaint. This can be completed in the outpatient setting pending further definitive treatment of her right hip region pain. 5. Consider transition to hydrocodone in place of IV hydromorphone for as needed breakthrough pain for discharge planning purposes Thank you for allowing us to participate in the care of Mrs. Cotton History of Present Illness Reason for Consultation: Intractable right-sided lumbosacral pain radiating into the right hip/groin and lower extremity Requesting Physician: Pura Kirkland PA-C Attending Physician: Edgar Mejía MD History of Present Illness Mrs. Cotton is a 62-year-old morbidly obese white female who was admitted due to acute on chronic low back and right lower extremity pain complaints. The patient's history of lumbar spine surgery x2 with an L2-3 fusion and prior removal of hardware from L3-L5 with disc spacer placement from L2-L5. Patient most recent lumbar spine surgery was 2017. She is reported some progressive worsening pain over the past few months which appear to significantly increase status post a recent colonoscopy procedure without known injury. She did have a fall in October. Repeat MRI at that time failed to reveal any significant change in her MRI without evidence of any significant spinal canal stenosis or compression. She has been working with [facility] in the outpatient setting regarding her right lower extremity pain complaints and did undergo caudal JOSUÉ with Dr. Lora without improvement in complaints. She also underwent a right intra-articular hip injection per Dr. Jones in November which provided significant short-term relief but no sustained improvement. Majority of her pain is in the right lumbosacral, lateral hip and groin. She reports occasional radiating pain in the entire leg to the foot in a nondermatomal pattern. She describes the pain as aching and episodically sharp and cramping in characteristic. Her pain ranges in a 6/10 at its best and 10/10 at its worst. She is known to have significant end-stage DJD of the right hip and SYLVIA is being considered by Dr. Delgado, but not until March status post her intra-articular injection. Patient reports that positional changing, standing and walking aggravates her pain complaints. She denies left lower extremity radicular pattern pain. She denies bowel or bladder incontinence or saddle anesthesia. Patient has no further constitutional complaints. Plan of care discussed with Dr. Dotty Funez. Pain Assessment Full Body Front + Back: 1. Right lumbosacral region 2. Right hip/groin 3. Right lower extremity-nondermatomal to foot Allergies Allergy/AdvReac Type Severity Reaction Status Date / Time hydroxyzine Allergy Intermediate HYPERACTIVE Verified 03/06/23 09:16 levofloxacin Allergy Mild RASH Verified 03/06/23 09:16 Quinolones Allergy Mild RASH Verified 03/06/23 09:16 wheat Allergy Mild GI Verified 03/06/23 09:16 SENSITIVITY diphenhydramine AdvReac Intermediate "KEEPS ME Verified 03/06/23 09:16 AWAKE INSTEAD OF MAKING ME SLEEPY" prednisone AdvReac Intermediate PSYCHOTIC Verified 03/06/23 09:16 COMPLICATIONS tramadol AdvReac Intermediate "OUT OF Verified 03/06/23 09:16 BODY" Sulfa (Sulfonamide AdvReac Mild GI UPSET Verified 03/06/23 09:16 Antibiotics) Home Medications Medication Instructions Recorded Confirmed Type clonazepam 0.5 mg tablet 0.5 mg PO HS PRN ANXIETY 07/17/18 03/07/23 History vitamin B complex 1 cap PO QAM 07/17/18 03/07/23 History levothyroxine 50 mcg tablet 50 mcg PO DIRECTED 07/25/19 03/07/23 History cholecalciferol (vitamin D3) 25 2,000 units PO QAM 06/01/20 03/07/23 History mcg (1,000 unit) capsule (Vitamin D3) cyclobenzaprine 5 mg tablet 10 mg PO HS PRN Other 11/10/22 03/07/23 History acetaminophen 650 mg 1,300 mg PO TID PRN Pain 02/06/23 03/07/23 History tablet,extended release (Tylenol 8 Hour) lidocaine 5 % topical patch 1 patch topical DAILY PRN pain #15 02/06/23 03/07/23 Rx ea acetaminophen 300 mg-codeine 30 mg 1 tab PO Q6 PRN pain 03/07/23 03/07/23 History tablet Patient History Medical History (Updated 03/09/23 @ 09:14 by Dimas Hernandez PA-C) Anxiety Chronic back pain RLE RADICULOPATHY; LE NEUROPATHY History of COVID-19 06/2022- fever, cough; resolved History of prediabetes Hx of sarcoidosis NO RECENT ISSUES. SINGLE FLARE 2012. Hypothyroidism Morbid obesity with BMI of 50.0-59.9, adult Osteoarthritis Postlaminectomy syndrome of lumbosacral region Right leg weakness Sacroiliac joint pain Spinal stenosis Urinary incontinence Surgical History H/O bilateral salpingo-oophorectomy History of appendectomy History of bilateral tubal ligation History of breast biopsy R BREAST-BENIGN History of bronchoscopy TO DX SARCODOSIS 2012 History of carpal tunnel release RT/LEFT History of section X4 History of colonoscopy History of esophagogastroduodenoscopy (EGD) History of myringotomy History of right knee joint replacement Hx of arthroscopy of left knee Hx of spinal surgery S/P cervical spinal fusion GOOD ROM S/P lumbar spinal fusion S/P partial hysterectomy [place] teeth removed Family History Brother Diabetes Colorectal cancer Mother Diabetes Stomach cancer Sarcoidosis Lymphoma Father Coronary heart disease Other Cancer Heart disease Hypertension No family history of adverse response to anesthesia No family history of bleeding disorder Social History Smoking Status: Never smoker Second Hand Exposure: No; Do You Dip or Chew Tobacco: No; Hx Alcohol Use: No Hx Substance Use: No Preferred Language: Nepalese Communication Ability: Effective Visual Impairment: No Limitations Special Forces Specialist Required: No Beliefs That Will Affect Care: Episcopalian Episcopalian Beliefs: LATTER-DAY marital status: Current Living Situation: Spouse Current Living Situation Comment: Lives with , patient's brother and SUMEET Feels Safe at Home: Yes Assistive Devices: Cane and Walker Physical Exam Physical Exam: General: Patient sitting quietly in exam room in no acute distress. Speech and thought process appropriate. Mood and affect appropriate. Cognition intact. Patient obese and physically deconditioned. Head: Normocephalic and atraumatic. ENT: No evidence of nasal or oral mucosal lesions. Mucous membranes are moist. Eyes: Pupils equal round reactive to light. Neck: Supple without adenopathy and full range of motion. Chest: Nontender to palpation of the costosternal junction. Abdomen: Soft and nondistended. No organomegaly. Bowel sounds active. Back/spine: Patient able to logroll onto her left side without limitation or obvious discomfort. Loss of lumbar lordosis. Well-healed midline surgical incision over the mid and lower lumbar spine. Nontender over the midline. No focal facet joint tenderness provocative testing. Patient tender over the SI joint bilaterally right greater than left-sided to provocative testing. Patient tender throughout the right gluteal region extending towards the level of the hip. No appreciable spasm or myoneural trigger point. Lower extremities: SLR negative bilaterally. Strength testing 4/5 on the right with EHL testing and otherwise 5/5 throughout bilaterally and equal. Sensation is slightly diminished over the entire right lower extremity when compared to the left to sharp and dull in a nondermatomal pattern. Right hip is tender with internal and external rotation with limitation of range of motion of external rotation. Patient is nontender of the left hip with internal/external rotation. Patient moderately tender over the right greater trochanter. Modified NORA maneuver was equivocal on the right negative on the left. Well-healed anterior patellar incisions bilaterally status post bilateral TKA Neurologic: Cranial nerves grossly intact. Ambulatory function not witnessed. Results (Pain Clinic) Diagnostic Review MRI Findings: [place], [place] [phone] Magnetic Resonance Report Patient:CHICHI COTTON Admit Date:03/07/23 MR#:[id number] Address1:[address] Acct ID:[id number] Address2: Date:[address] [facility] Zip:[place] [address] Age:62 Location:[facility] Sex:F Room/Bed:[facility] 1-1 Att Phy:Jamel Higuera MD Diagnosis:LOWER BACK PAIN AND SPASM,rt LEG NUMBNESS Nell Phy:Frieda Palacios M.D. Service Date:03/07/23 Fam Phy: Interpreting Phy:Naeem GomezAdmit Phy:Jamel Higuera MD Ordering Phy:Jamel Higuera MD cc: ~ MR lumbar spine wo con CLINICAL HISTORY: 62 years-old Female with AoC lumbar pain with new RLE numbness/weakness. Acute low back pain with right lower extremity radicular symptoms COMPARISON: 02/06/2023, 02/06/2023, 11/10/2022 TECHNIQUE: Multiplanar, multi sequence MRI of the lumbar spine was performed without intravenous contrast. FINDINGS: Motion degraded exam. Left-sided renal cyst redemonstrated. Transitional lumbosacral anatomy. For purposes of consistency, the L5-S1 intervertebral disc space is described on axial image 17 series 9 compatible with the 11/10/2022 exam. Laminectomy at L2-L5 again noted. Posterior interbody idania and screw fusion hardware with discectomy at L2-L3 with discectomy changes also noted at L3-L4 a nd L4-L5.. Conus medullaris terminates at T12-L1. Signal within the imaged thoracic spinal cord is unremarkable. No acute fracture, subluxation, endplate erosion or marrow replacing process. T12-L1: Ligamentum flavum thickening with moderate facet arthrosis. No central canal or neural foraminal stenosis. L1-L2: Unchanged mild/moderate vertebral disc space narrowing with mild spondylitic spurring and small post renal disc bulge with ligament flavum thickening and severe facet arthrosis. Flattening of the ventral thecal sac without significant central canal stenosis. Stable moderate bilateral foraminal narrowing. L2-L3: Discectomy with posterior posterior decompression, interbody idania and screw fusion. No central canal or neural foraminal narrowing. L3-L4: Discectomy with posterior decompression. No central canal or neural foraminal narrowing. L4-L5: Discectomy with posterior decompression. No central canal or neural foraminal narrowing. L5-S1: Transitional lumbosacral anatomy. Moderate facet arthrosis. No significant central canal or neural foraminal narrowing. IMPRESSION: 1. Stable exam from the study obtained less than one month earlier on 02/06/2023. 2. No acute fracture or bone marrow edema. 3. Degenerative and postoperative changes as above. 4. Neural foraminal narrowing without significant central canal stenosis. ACT 112: Negative or not required by law. The above report was generated using voice recognition software. It may contain grammatical, syntax or spelling errors. Electronically signed by: Naeem Gomez M.D. 03/07/2023 3:58 PM Dictated:03/07/23 1551 Transcribed: 03/07/23 1551 Radiology Findings: [place], [place] [phone] XRay Report Patient:CHICHI COTTON Admit Date:03/07/23 MR#:[id number] Address1:[address] [place] [address] Acct ID:[id number] Address2: Date:1960 [facility] Zip:[place] [address] Age:62 Location:3W Sex:F Room/Bed:[facility] Att Phy:Jamel Higuera MD Diagnosis:LOWER BACK PAIN AND SPASM,rt LEG NUMBNESS Nell Phy:Frieda Palacios M.D. Service Date:03/07/23 Fam Phy: Interpreting Phy:Bulmaro Fraga MDAdmit Phy:Jamel Higuera MD Ordering Phy:Jamel Higuera MD cc: ~ LUMBAR SPINE 3 VIEWS CLINICAL HISTORY: Low back pain. FINDINGS: Three views of the lumbar spine are compared to study dated 02/01/2023 and correlated with MRI of the lumbar spine performed on the same day, 03/07/2023. The skeletal structures are osteopenic. There is no radiographic evidence of fracture or malalignment. Vertebral body height and alignment are maintained throughout the lumbar spine. There is straightening of the lumbar lordosis. Anterior and lateral marginal osteophytes are seen throughout. Extensive postlaminectomy change with interposition bone grafting is seen throughout the lumbar spine. Interpedicular screws are present in L2 and L3. There has been discectomy at L2-L3, L3-L4, and L4-L5. Moderate disc space narrowing is seen at L5-S1 and mild disc space narrowing is seen at L1-L2. The transverse processes appear intact. The visualized bony pelvis is grossly maintained. Advanced arthritic change is seen in the right hip. Surgical clips project over the pelvis. There are numerous pelvic phleboliths. No bowel obstruction is seen. IMPRESSION: 1. No acute bony abnormality is seen involving the lumbar spine. 2. Osteopenia with postsurgical and mild spondylotic change as above. 3. Advanced arthritic change is noted in the right hip. Dictated: 03/07/2023 6:18 PM Transcribed: 03/07/2023 6:24 PM Favio [id number] [email or web address] Electronically signed by: Bulmaro Fraga M.D. 03/07/2023 6:34 PM Dictated:03/07/231817 Transcribed: 03/07/231823 [place], [place] [phone] XRay Report Patient:CHICHI COTTON Admit Date:03/07/23 MR#:[id number] Address1:[address] [place] [address] Acct ID:[id number] Address2: Date:[address] [facility] Zip:[place] [address] Age:62 Location:3W Sex:F Room/Bed:[facility] Att Phy:Jamel Higuera MD Diagnosis:LOWER BACK PAIN AND SPASM,rt LEG NUMBNESS Nell Phy:Frieda Palacios M.D. Service Date:03/07/23 Fam Phy: Interpreting Phy:Bulmaro Fraga MDAdmit Phy:Jamel Higuera MD Ordering Phy:Jamel Higuera MD cc: ~ SINGLE VIEW PELVIS; 2 VIEWS RIGHT HIP CLINICAL HISTORY: Right hip pain. FINDINGS: An AP view of the pelvis with AP and frog-leg views of the right hip are compared to study dated 11/01/2022. The skeletal structures are heterogeneously osteopenic. There is no radiographic evidence of acute fracture involving the hips or bony pelvis. Lumbosacral spondylosis and postsurgical change of the lumbar spine is partially imaged. There is severe osteoarthritic change of the right hip with near complete loss of the joint space, bony overgrowth, and sclerosis. This appears modestly progressive as compared to 11/01/2022. Moderate arthritic change and joint space narrowing is seen in the left hip. Sclerotic change is seen in the sacroiliac joints and pubic symphysis. The overlying soft tissues are within normal limits. Surgical clips and phleboliths are noted in the pelvis. IMPRESSION: 1. No acute bony abnormality is identified. 2. Severe osteoarthritic change of the right hip as above. Electronically signed by: Bulmaro Fraga M.D. 03/07/2023 6:24 PM Dictated:03/07/231821 Transcribed: 03/07/231821 Previous Records Review Previous Records: personally reviewed by me
[2023-03-09 09:33] LABS: BUN Creatinine Ratio 29.2 (10-20); Calcium 9.6 mg/dl (8.6-10.3); Creatinine Clr Calc Pharmacy 111.3 ml/min; Est GFR (African American) 111.1 ml/min; Est GFR (Non-African American) 95.8 ml/min; Potassium 4.3 mmol/L (3.5-5.1)
[2023-03-09] MEDS ORDERED: HYDROCODONE/ACETAMOPHEN 5/325MG TAB PO PRN (10:32)
[2023-03-09] MEDS ORDERED: oxyCODONE HCL IR 5 MG TAB (IMMEDIATE RELEASE) PO PRN (11:36)
[2023-03-09] MEDS ORDERED: ACETAMINOPHEN 500 MG TAB PO SCH (12:00)
[2023-03-09] MEDS ORDERED: HEPARIN SOD 5,000 UNIT/0.5 ML VIAL SQ SCH (14:00)
--- NOTE | 2023-03-09 14:01 | Discharge Summary ---
Date of Service March 09, 2023 Admission HPI Per Admitting Provider Beryl is a 62 year old female with a PMH significant for chronic lumbar and right leg/hip pain, previous hx of lumbar fusion, and hypothyroidism who presented to the [facility] ED on 03/07/23 with a chief complaint of worsening chronic back and right leg pain. In the ED the patient was noted to be stable. Labs including CBC, CMP, and Covid 19 screen were WNL. Prior to admission the patient was given 1 gm IV Tylenol, 10 mg IM dexamethasone, 60 mg IM toradol, 5 mg PO valium, and a lidocaine patch. The patient refused an ambulatory trial after initial treatment in the ED. We were asked to admit for PT/OT and rehab placement. Of note, the patient did undergo a routine colonoscopy for colon cancer screening, findings were consistent with non-bleeding internal hemorrho ids. She was last admitted to [facility] from 11/10/22-11/12/22 for back/right leg pain S/P fall. During the admission she underwent MRI of the lumbar spine which was negative for significant spinal stenosis or compression. She was evaluated by Dr. Quezada who thought the majority of her symptoms were due to OA of the right hip. Dr. Quezada was going to work with his partner, Dr. Berry to arrange follow-up. At the time of the exam the patient was sitting in bed in pain with her sitting bedside. Her chronic lumbar and right hip pain had been stable since last admission. She ended up seeing [facility] for her right hip, they told her they did not think the hip was the source of her pain. She had an injection in her lumbar spine approximately a month ago which initially improved her symptoms.She underwent the colonoscopy yesterday and felt find after, she was able to go up her stairs last night without issue. This am she woke and was having severe lumbar back pain with radicular symptoms down her right leg. She was able to walked to the bathroom and sit on the toilet, but her symptoms progressed to the point that she was unable to walk out of the bathroom. She is currently experiencing a 10/10 sharp/cramping pain which starts in the lower lumbar spine, it radiates around her right hip and down her right leg into her right foot. She is now experiencing significant numbness and weakness in the RLE, which is new compared to her chronic symptoms. She denies loss of bowel or bladder function and denies saddle anesthesia, as-well-as recent falls/trauma. The initial treatment given in the ED did not improve her symptoms at all, she is currently in too much pain to try and get out of bed. Please refer to Dr. Higuera's attestation for any changes to the treatment plan Admission Exam Per Admitting Provider Physical Exam: General:In moderate distress due to pain, stated age, well-nourished, good hygiene HEENT:Normocephalic, atraumatic, no scleral icterus, pupils around round, symmetrical, and reactive to light, moist mucus membranes, trachea midline, no thyromegaly Chest/Pulm:No respiratory distress, symmetrical chest expansion, clear breath sounds throughout Cardiac:RRR, no murmurs noted Abdomen:Negative for ascites and bruising, normoactive bowel sounds, soft, non-tender to palpation throughout Musculoskeletal:No acute trauma in the BL upper and lower extremities, severely tender to palpation over the lumbar spine/right paraspinal muscles, unable to flex right hip at this time due to pain, right dorsi/plantarflexion 4/5, left 5/5 Extremities:Radial, dorsalis pedis, and posterior tibial pulses are intact and symmetrical, no edema noted in the BL LE's Skin:Warm, dry, no rashes , lesions, or scars noted Neuro:Alert and oriented to person, place, month, year, and president, no focal defects, CN II-XII tested and intact,intact soft touch of the LLE, no sensation to soft touch of the RLE but can feel pressure,no tremors noted Psych:Polite and cooperative during the exam Principal Diagnosis RIGHT LEG PAIN, RIGHT HIP OSTEOARTHRITIS Discharge Exam General: WD obese female sitting up in bed, NAD HEENT: head normocephalic, atraumatic, mmm Resp: CTA, no w/c, on RA CV: RRR, no significant m/r/g, no pitting edema GI: +BS, soft/NT : no chung MSK/Neuro: tenderness to palpation over SI joint R>L SLR negative bilaterally slight decreased strength on the right compared to left with EHL testing but otherwise equal, slightly diminished sensation to light touch to knee but improv ed from prior. sharp intact +pain w/ internal/external rotation of right hip, not to left Psych: AOx3, cooperative w/ exam Discharge Data Allergies Allergy/AdvReac Type Severity Reaction Status Date / Time hydroxyzine Allergy Intermediate HYPERACTIVE Verified 03/06/23 09:16 levofloxacin Allergy Mild RASH Verified 03/06/23 09:16 Quinolones Allergy Mild RASH Verified 03/06/23 09:16 wheat Allergy Mild GI Verified 03/06/23 09:16 SENSITIVITY diphenhydramine AdvReac Intermediate "KEEPS ME Verified 03/06/23 09:16 AWAKE INSTEAD OF MAKING ME SLEEPY" prednisone AdvReac Intermediate PSYCHOTIC Verified 03/06/23 09:16 COMPLICATIONS tramadol AdvReac Intermediate "OUT OF Verified 03/06/23 09:16 BODY" Sulfa (Sulfonamide AdvReac Mild GI UPSET Verified 03/06/23 09:16 Antibiotics) Consultations 03/07/23 10:50 ED Decision to Admit Stat 03/08/23 08:31 Consult Orthopedic Surgery Routine 03/08/23 10:30 Consult Orthopedic Surgery Routine 03/08/23 10:32 Consult Pain Management Routine Ordered Studies Hip/Pelvis X-Ray 03/07/23 11:10 SINGLE VIEW PELVIS; 2 VIEWS RIGHT HIP CLINICAL HISTORY: Right hip pain. FINDINGS: An AP view of the pelvis with AP and frog-leg views of the right hip are compared to study dated 11/01/2022. The skeletal structures are heterogeneously osteopenic. There is no radiographic evidence of acute fracture involving the hips or bony pelvis. Lumbosacral spondylosis and postsurgical change of the lumbar spine is partially imaged. There is severe osteoarthritic change of the right hip with near complete loss of the joint space, bony overgrowth, and sclerosis. This appears modestly progressive as compared to 11/01/2022. Moderate arthritic change and joint space narrowing is seen in the left hip. Sclerotic change is seen in the sacroiliac joints and pubic symphysis. The overlying soft tissues are within normal limits. Surgical clips and phleboliths are noted in the pelvis. IMPRESSION: 1. No acute bony abnormality is identified. 2. Severe osteoarthritic change of the right hip as above. Electronically signed by: Bulmaro Fraga M.D. 03/07/2023 6:24 PM Lumbar Spine MRI 03/07/23 11:10 MR lumbar spine wo con CLINICAL HISTORY: 62 years-old Female with AoC lumbar pain with new RLE numbness/weakness. Acute low back pain with right lower extremity radicular symptoms COMPARISON: 02/06/2023, 02/06/2023, 11/10/2022 TECHNIQUE: Multiplanar, multi sequence MRI of the lumbar spine was performed without intravenous contrast. FINDINGS: Motion degraded exam. Left-sided renal cyst redemonstrated. Transitional lumbosacral anatomy. For purposes of consistency, the L5-S1 intervertebral disc space is described on axial image 17 series 9 compatible with the 11/10/2022 exam. Laminectomy at L2-L5 again noted. Posterior interbody idania and screw fusion hardware with discectomy at L2-L3 with discectomy changes also noted at L3-L4 and L4-L5.. Conus medullaris terminates at T12-L1. Signal within the imaged thoracic spinal cord is unremarkable. No acute fracture, subluxation, endplate erosion or marrow replacing process. T12-L1: Ligamentum flavum thickening with moderate facet arthrosis. No central canal or neural foraminal stenosis. L1-L2: Unchanged mild/moderate vertebral disc space narrowing with mild spondylitic spurring and small post renal disc bulge with ligament flavum thickening and severe facet arthrosis. Flattening of the ventral thecal sac without significant central canal stenosis. Stable moderate bilateral foraminal narrowing. L2-L3: Discectomy with posterior posterior decompression, interbody idania and screw fusion. No central canal or neural foraminal narrowing. L3-L4: Discectomy with posterior decompression. No central canal or neural foraminal narrowing. L4-L5: Discectomy with posterior decompression. No central canal or neural foraminal narrowing. L5-S1: Transitional lumbosacral anatomy. Moderate facet arthrosis. No significant central canal or neural foraminal narrowing. IMPRESSION: 1. Stable exam from the study obtained less than one month earlier on 02/06/2023. 2. No acute fracture or bone marrow edema. 3. Degenerative and postoperative changes as above. 4. Neural foraminal narrowing without significant central canal stenosis. ACT 112: Negative or not required by law. The above report was generated using voice recognition software. It may contain grammatical, syntax or spelling errors. Electronically signed by: Naeem Gomez M.D. 03/07/2023 3:58 PM Lumbar Spine X-Ray 03/07/23 11:10 LUMBAR SPINE 3 VIEWS CLINICAL HISTORY: Low back pain. FINDINGS: Three views of the lumbar spine are compared to study dated 02/01/2023 and correlated with MRI of the lumbar spine performed on the same day, 03/07/2023. The skeletal structures are osteopenic. There is no radiographic evidence of fracture or malalignment. Vertebral body height and alignment are maintained throughout the lumbar spine. There is straightening of the lumbar lordosis. Anterior and lateral marginal osteophytes are seen throughout. Extensive postlaminectomy change with interposition bone grafting is seen throughout the lumbar spine. Interpedicular screws are present in L2 and L3. There has been discectomy at L2-L3, L3-L4, and L4-L5. Moderate disc space narrowing is seen at L5-S1 and mild disc space narrowing is seen at L1-L2. The transverse processes appear intact. The visualized bony pelvis is grossly maintained. Advanced arthritic change is seen in the right hip. Surgical clips project over the pelvis. There are numerous pelvic phleboliths. No bowel obstruction is seen. IMPRESSION: 1. No acute bony abnormality is seen involving the lumbar spine. 2. Osteopenia with postsurgical and mild spondylotic change as above. 3. Advanced arthritic change is noted in the right hip. Dictated: 03/07/2023 6:18 PM Transcribed: 03/07/2023 6:24 PM Favio [id number] [email or web address] Electronically signed by: Bulmaro Fraga M.D. 03/07/2023 6:34 PM Hospital Course (1) Right leg weakness: The patient is experiencing an acute change in her chronic lumbar back pain with RLE pain. She is now experiencing significant RLE weakness/numbness since waking AM 03/07 Hx lumbar fusion w/ Dr Quezada. No saddle anesthesia/loss bowel/bladder function at present or recent trauma. CK not elevated. Mag 2.0 Positioning from c-scope day prior possibly exacerbated pain MRI lumbar spine without significant change compared to prior Xray lumbar spine noting advanced arthritic change in the right hip Lyme testing negative Prior doppler negative for DVT Review of prior hospitalization, eval by Dr Quezada and felt to be related to her hip and wanted f/u Dr Berry. She was seen by Dr Sebastinelli outpatient for eval and felt was related to her back. Had prior epidural injection without improvement, making spine less likely. Dr Quezada consulted -- rec to address hip addressed prior to any further back surgery Dr Jackson consulted -- med management for pain control/weight loss recommended. Started decadron, scheduled tylenol 500mg q4h, gabapentin 100mg tid and seem to be working. Trial IR oxycocodone per patient request to limit excessive tylenol To have outpt f/u Dr Jackson to discuss hip replacement in future Pain management consulted (prior saw Dr Segura at [facility]) - agreed w/ plan. Outpt f/u Dr Segura for consideration SI injections PT/OT consulted -- rehab possible but insurance auth pending and patient preferred to go home. Arrangements for HH to be made by CM in the AM Continued scheduled tylenol, gabapentin, medrol dose pack (didn't like decadron per patient), and Oxycodone IR for breakthrough. Discussed bowel regiment to prevent constipation (just had c-scope day prior) Also w/ possible UTI vs contamination. She reported some foul smelling urine but no burning/frequency. GIven ceftriaxone last evening and reported started feeling better following this and given repeat dose today while urine cx pending. Urine cx >3 organisms, rec repeat collection. --> sending on nitrofurantoin x 3 more days for 5 day course. If continued foul smelling urine/fevers at home, would rec repeating urine cx in f/u Work note for no lifting >10lb, frequent breaks to get up/moving provided. DVT proph - SCDs, Heparin SQ while inpatient. Doppler this week NEGATIVE for DVT (2) Osteoarthritis of right hip: noted, suspect contributing to ambulatory dysfunction Eventually will need f/u for hip replacement -- appt scheduled for f/u already weight loss recommended, pain management as above and outpt f/u with Dr Jackson and Dr Segura (3) Lumbar radiculopathy: ?combination of back/hip pain w/ positioning for recent c-scope MRI lumbar spine/ortho consulted as above pain control/pt/ot consulted improving -- continue med management w/ outpt f/u as above (4) Back pain: See right leg weakness improving w/ treatment as outlined above (5) Anxiety: continued prn HS Clonazepam (6) Hypothyroidism: TSH wnl earlier this year Continued usual levothyroxine (7) Acute exacerbation of chronic low back pain: as above HH being arranged for at d/c outpt f/u for hip replacement/SI injection w/ Dr Segura continued abx for possible UTI but not overly convincing Total Time Total Time Spent Total Time Spent (In Minutes): 45 Discharge Plan Discharge Items Patient Disposition: Home - Home Health Services Reason For Visit: LOWER BACK PAIN AND SPASM,rt LEG NUMBNESS Discharge Diagnosis: Right leg/hip pain Right hip osteoarthritis Goals: You have been hospitalized for an acute medical problem. During your stay at [facility], we have made an effort to correct the problem that brought you to the hospital while keeping you as comfortable as possible. Medications were used to bring your condition under control and your discharge instructions will include directions for any medications you should take after leaving the hospital. Please make sure you see your Primary Care Provider as part of your follow up plan. Activity: As commented below Weightbearing: Right weightbearing Weightbearing Comment: with walker/cane as needed Non-emergency contact: Primary Care Provider, Surgeon and Pain Management Call non-emergency contact if: you have any medication questions, your symptoms worsen and your pain is concerning for you Follow-up/Referrals: Kelton Segura MD [Surgeon] - Frieda Palacios MD [Primary Care Provider] - Jerel Mead PA-C [Physician Safety Professional] - 04/06/23 3:45 pm Diet: Carb Consistent or DM2 and Heart Healthy Addtl Attending Provider Instructions: You have been hospitalized for right leg/knee and back pain. Imaging was negative for acute process in the back and your hip has severe arthritis and will likely need replacement. You were evaluated by Dr Jackson and we are going to attempt pain control and weight loss is encouraged during this time to prevent risks when time comes for surgery. Dr Quezada believes the hip needs dealt with prior to any further back surgery. Pain management consultation was undertaken and you can follow up with Dr Segura for consideration for injection to your SI joints. For pain control at discharge: * Solumedrol dose pack -- this is a steroid and you should take the taper as directed on packaging * Celebrex 200mg daily -- this is an antiinflammatory. DO NOT take any aleeve, ibuprofen, naproxen or other NSAIDs while on this medication * Acetaminophen 500mg every four hours * Gabapentin 100mg three times daily, every 8 hours -- this is for nerve pain and can help with the back. This can also be increased as outpatient for pain control as well * Oxycodone immediate release 5mg as needed for breakthrough pain every 4-[address] while on narcotics. Please continue protonix once daily while on steroids and antiinflammatory agents to prevent GI upset. Please continue a bowel regimen while on pain medications to prevent constipation. Your urine culture looked posssibly infected and you were given IV antibiotics for two days in the hospital. Culture asked for repeat collection but given already on antibiotics, repeat would likely be negative at this point. Will continue nitrofurantoin 100mg twice daily for another 3 days to complete the course. Therapy evaluations were undertaken and you will be set up with home health at discharge and case management will set this up tomorrow. Please follow up with Dr Segura and Dr Jackson as an outpatient. Please follow up with primary care to monitor your status after discharge. Please return to the ER with any worsening/uncontrolled pain, chest pain, shortness of breath, or for any other issues. 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 Do NOT LIFT more than 10 pounds. Use walker/cane as needed with ambulation Ice as needed for pain Allowed for range of motion as tolerated Follow up as and outpatient with Jerel Mead PA-C on 04/06/23 at 3:45 p.m. to discuss getting scheduled for Right Total Hip arthroplasty Pending Studies at Discharge: No Stand-Alone Forms: My [facility], Work/School Release, Smoking Cessation Medications and DC Order Prescriptions: New acetaminophen [Tylenol Extra Strength] 500 mg Tablet 500 mg PO Q4 Qty: 30 0RF gabapentin 100 mg Capsule 100 mg PO TID Qty: 90 0RF oxycodone 5 mg Tablet 5 mg PO Q4H PRN (Reason: pain) Qty: 16 0RF celecoxib [Celebrex] 200 mg capsule 200 mg PO DAILY Qty: 30 0RF pantoprazole 40 mg tablet,delayed release (DR/EC) 40 mg PO DAILY 28 Days Qty: 28 0RF methylprednisolone [Methylpred DP] 4 mg tablets,dose pack 4 mg PO DAILY Qty: 21 0RF Rx Instructions: take taper as directed nitrofurantoin monohyd/m-cryst [Macrobid] 100 mg capsule 100 mg PO BID 3 Days Qty: 6 0RF Rx Instructions: must administer with a meal/food Continued cholecalciferol (vitamin D3) [Vitamin D3] 25 mcg (1,000 unit) capsule 2,000 units PO QAM clonazepam 0.5 mg Tablet 0.5 mg PO HS PRN (Reason: ANXIETY ) vitamin B complex Capsule 1 cap PO QAM levothyroxine 50 mcg tablet 50 mcg PO DIRECTED Rx Instructions: take 75 mcg on monday,monday,monday take 50 mcg all other days lidocaine 5 % adhesive patch,medicated 1 patch TOP DAILY PRN (Reason: pain) Qty: 15 0RF Rx Instructions: do not leave on more than 12 hours cyclobenzaprine 5 mg tablet 10 mg PO HS PRN (Reason: Other) Rx Instructions: does not use regular Discontinued acetaminophen [Tylenol 8 Hour] 650 mg Tablet Extended Release 1,300 mg PO TID PRN (Reason: Pain) Rx Instructions: PER PT SHE TAKES 1300 (2X 650MG) AM AND 1300 (2X 650MG) PM acetaminophen-codeine 300-30 mg tablet 1 tab PO Q6 PRN (Reason: pain) Admission Data Admit Date/Time: 03/07/23 11:24 Attending Provider: Edgar Mejía Admit Provider: Jaeml Higuera Primary Care Provider: Frieda Palacios Other Providers: Jamel Higuera ; Dotty Funez ; Raf Delgado ; Kelton Quezada ; [facility] ; [facility] Other Interventions: Discharge Summary Assessment (RN) Last Done: 03/09/23 17:19 Supervising Physician Co-Signing Physician Notes The patient was seen by me. The chart was reviewed. Case discussed with POLLY Simpson. Agree with assessment and plan Coding Level of Care Code 36501 INP/OBS DISCH >30 MIN Diagnoses Right leg weakness R29.898 Osteoarthritis of right hip M16.11 Lumbar radiculopathy M54.16 Back pain M54.9 Anxiety F41.9 Hypothyroidism E03.9 Acute exacerbation of chronic low back pain M54.50; G89.29
[2023-03-09] MEDS: cefTRIAXone SODIUM 2,000 MG in DEXTROSE 5% 50 ML IV SCH (17:30)
== END 2023-03-09 18:25 | disposition home health service (06) ==
LOC: ED 06:55 → EDINP 06:55 → SUATTDRO 11:24 → 3W 13:41

== ENCOUNTER 2023-11-06 07:06 | Inpatient (IN) ==
[2023-11-06] MEDS ORDERED: HYDROmorphone INJ 1 MG/ML SYRINGE IV STA ×2 (07:46→09:46)
[2023-11-06] MEDS ORDERED: KETOROLAC TROMETHAMINE 15 MG/ML VIAL IV STA (07:46)
[2023-11-06] MEDS ORDERED: dexAMETHasone**PF** 10 MG/ML VIAL IV ONE (07:46)
--- NOTE | 2023-11-06 07:50 | Emergency Department Note ---
History of Present Illness General Chief complaint: Back Injury/Pain Stated complaint: PAIN IN RT CALF,NUMBNESS FROM BACK TO TOES,THROBIN Time Seen by Provider: 11/06/23 07:31 History of Present Illness Maximum Pain Intensity: 10 63-year-old female who presents to the emergency department accompanied by for evaluation of right low back pain with radiation into the leg. She reports a history of chronic back pain status post spinal [place] [address] Quezada. She was seen here recently on 10/06/2023 for similar symptoms. She had a lumbar spine MRI on 10/03 which was relatively unremarkable. She states over the last few days her back pain has gotten progressively worse. It starts in the low back and radiates into her right leg/anterior thigh and into the foot. She notes associated numbness down the whole leg and subjective weakness. She also notes right calf pain that started yesterday and swelling. She denies history of blood clots, recent prolonged immobilization or surgeries. She denies loss of control of her bowel or bladder movements or saddle paresthesias. She denies any recent falls or trauma or heavy lifting. Denies abdominal pain, urinary symptoms fever/chills. She is able to ambulate but this does cause her some discomfort. She is taken her home oxycodone without significant relief in her symptoms. She has not scheduled to see Dr. Quezada until March. Home Medications Medication Instructions Recorded Confirmed Type vitamin B complex 1 cap PO QAM 07/17/18 11/06/23 History cholecalciferol (vitamin D3) 25 2,000 units PO QAM 06/01/20 11/06/23 History mcg (1,000 unit) capsule (Vitamin D3) lidocaine 5 % topical patch 1 patch topical DAILY PRN pain #15 02/06/23 11/06/23 Rx ea acetaminophen 500 mg tablet 500 mg PO BID PRN Pain 04/24/23 11/06/23 History naproxen sodium 220 mg tablet 440 mg PO QAM PRN Pain 04/24/23 11/06/23 History (Aleve) krill 1,000 mg-omega-3 170 mg-dha 1 cap PO BID 10/06/23 11/06/23 History 50 mg-epa 80 [id number] capsule (krill oil) magnesium 250 mg tablet 250 mg PO DAILY 10/06/23 11/06/23 History zinc 100 mg tablet 100 mg PO DAILY 10/06/23 11/06/23 History oxycodone 5 mg tablet 5 mg PO HS pain 11/06/23 11/06/23 History Allergies Allergy/AdvReac Type Severity Reaction Status Date / Time celecoxib [From Celebrex] Allergy Intermediate swelling Unverified 11/02/23 14:53 gabapentin Allergy Intermediate Blurry Unverified 11/02/23 14:53 Vision hydroxyzine Allergy Intermediate HYPERACTIVE Verified 11/02/23 14:53 levofloxacin Allergy Mild RASH Verified 11/02/23 14:53 Quinolones Allergy Mild RASH Verified 11/02/23 14:53 wheat Allergy Mild GI Verified 11/02/23 14:53 SENSITIVITY diphenhydramine AdvReac Intermediate "KEEPS ME Verified 11/02/23 14:53 AWAKE INSTEAD OF MAKING ME SLEEPY" prednisone AdvReac Intermediate PSYCHOTIC Verified 11/02/23 14:53 COMPLICATIONS tramadol AdvReac Intermediate "OUT OF Verified 11/02/23 14:53 BODY" Sulfa (Sulfonamide AdvReac Mild GI UPSET Verified 11/02/23 14:53 Antibiotics) Past Med/Surg History Medical History Lipedema Fatty infiltration of liver Dyslipidemia Prediabetes Sacroiliac joint pain Postlaminectomy syndrome of lumbosacral region History of COVID-19 06/2022- fever, cough; resolved Osteoarthritis of right hip History of prediabetes Morbid obesity with BMI of 50.0-59.9, adult Urinary incontinence Right leg weakness Osteoarthritis Chronic back pain RLE RADICULOPATHY; LE NEUROPATHY Hx of sarcoidosis NO RECENT ISSUES. SINGLE FLARE 2012. Anxiety Hypothyroidism Surgical History Hx of arthroscopy of left knee Hx of spinal surgery History of right knee joint replacement H/O bilateral salpingo-oophorectomy History of carpal tunnel release RT/LEFT History of bilateral tubal ligation [place] teeth removed History of myringotomy History of esophagogastroduodenoscopy (EGD) History of breast biopsy R BREAST-BENIGN History of section X4 History of colonoscopy History of appendectomy History of bronchoscopy TO DX SARCODOSIS 2012 S/P lumbar spinal fusion S/P cervical spinal fusion GOOD ROM S/P partial hysterectomy Family History Brother Diabetes Colorectal cancer Mother Diabetes Stomach cancer Sarcoidosis Lymphoma Father Coronary heart disease Other Cancer Heart disease Hypertension No family history of adverse response to anesthesia No family history of bleeding disorder Social History Smoking Status: Never smoker Second Hand Exposure: No; Do You Dip or Chew Tobacco: No; Hx Alcohol Use: No Hx Substance Use: No Preferred Language: Frisian Communication Ability: Effective Visual Impairment: No Limitations Substation Mechanic Required: No Beliefs That Will Affect Care: Shinto Shinto Beliefs: SABIANIST marital status: Current Living Situation: Spouse Current Living Situation Comment: Lives with , patient's brother and SUMEET Other Information That Helps Us Care for You: No Feels Safe at Home: Yes Safety Concerns: Feels Safe At This Time Assistive Devices: Cane and Walker Physical Exam Vital Signs Vital Signs - 24 hr 11/06/23 07:10 11/06/23 09:11 11/06/23 11:00 Temperature 36.8 C Temperature Source Temporal Artery Scan Pulse Rate 95 H Pulse Rate [Right Finger] 85 82 Pulse Rhythm [Right Finger] Regular Regular Pulse Strength [Right Finger] Normal Respiratory Rate 20 22 18 Respiratory Effort / Characteristics Non-Labored Spontaneous Non-Labored Spontaneous Non-Labored Respiratory Depth Normal Normal Normal Respiratory Pattern Regular Regular Regular Blood Pressure 113/66 Blood Pressure [Right Arm] 105/63 115/76 Blood Pressure Mean 81 Blood Pressure Mean [Right Arm] 77 89 Blood Pressure Position Sitting Blood Pressure Position [Right Arm] Sitting Pulse Oximetry 100 99 95 Oxygen Delivery Method Room Air Room Air Room Air Sepsis Recent Fever Within 48 Hours No Sepsis New/Unexplained Change in Mental Status No Sepsis Action Taken by Nursing No Action Required Constitutional: alert and oriented x3. no acute distress. nontoxic HEENT: normocephalic, atraumatic. normal conjunctiva.PERRLA. EOM's grossly intact. TMs pearly greenberg without effusion. Pharynx pink without exudate. Tonsils nonenlarged. Mucus membranes moist Neck: neck is supple, nontender. no carotid bruits present bilaterally. C-spine nontender Respiratory: lungs are clear to auscultation without wheezes, rhonchi, or rales bilaterally. equal chest rise. normal respiratory effort, no accessory muscle use. Cardiovascular: normal heart sounds without murmur. regular rate and rhythm. GI: abdomen is soft, nontender. No palpable masses. No rebound tenderness or guarding MSK: Tender to palpation over the right SI joint and lateral hip. Positive straight leg raise. Strength +4 and equal bilateral lower extremities. Peripheral vascular: Lower extremities warm and well perfused with palpable pedal pulses. Brisk capillary refill of all digits. Sensation grossly intact Psych:appropriate mood and affect. Course Administered Medications Acetaminophen (Acetaminophen 500 Mg Tab) 1,000 mg PO TID SARAH Stop: 12/06/23 13:59 Last Admin: 11/06/23 14:40 Dose: 1,000 mg Documented By: GENOVEVA Ketorolac Tromethamine (Ketorolac 30 Mg/Ml Vial) 30 mg IV Q6H SARAH Stop: 11/08/23 14:59 Last Admin: 11/06/23 15:19 Dose: 30 mg Documented By: GENOVEVA Oxycodone HCl (Oxycodone Hcl Ir 5 Mg Tab (Immediate Release)) 5 - 10 mg PO Q4H PRN PRN Reason: Pain Stop: 11/20/23 13:23 Last Admin: 11/06/23 14:39 Dose: 10 mg Documented By: GENOVEVA Discontinued Medications Cyclobenzaprine HCl (Cyclobenzaprine Hcl 10 Mg Tab) 10 mg PO NOW STA Stop: 11/06/23 08:51 Last Admin: 11/06/23 09:10 Dose: 10 mg Documented By: VLADISLAV Dexamethasone Sodium Phosphate (DexamethasonePf 10 Mg/Ml Vial) 10 mg IV NOW ONE Stop: 11/06/23 07:47 Last Admin: 11/06/23 08:02 Dose: 10 mg Documented By: GENOVEVA Hydromorphone HCl (Hydromorphone Inj 1 Mg/Ml Syringe) 1 mg IV NOW STA Stop: 11/06/23 07:47 Last Admin: 11/06/23 08:03 Dose: 1 mg Documented By: GENOVEVA Hydromorphone HCl (Hydromorphone Inj 1 Mg/Ml Syringe) 1 mg IV NOW STA Stop: 11/06/23 09:47 Last Admin: 11/06/23 10:06 Dose: 1 mg Documented By: GENOVEVA Ketorolac Tromethamine (Ketorolac Tromethamine 15 Mg/Ml Vial) 15 mg IV NOW STA Stop: 11/06/23 07:47 Last Admin: 11/06/23 08:02 Dose: 15 mg Documented By: GENOVEVA Lidocaine (Lidocaine 5% 1 Patch) 1 patch TD NOW STA Stop: 11/06/23 08:51 Last Admin: 11/06/23 09:10 Dose: 1 patch Documented By: VLADISLAV Miscellaneous (Patient's Height &/Or Weight Needed) 1 each N/A Q2H SARAH Stop: 12/06/23 13:44 Last Admin: 11/06/23 15:02 Dose: 1 each Documented By: GENOVEVA Medical Decision Making Differential Diagnosis Musculoskeletal, disc herniation, fracture, metastatic disease, cord compression, discitis, sciatica, cauda equina, infection, aortic disease, renal colic, gastrointestinal, as well as other pathologies. Laboratory Data Attestation: I reviewed the patient's lab results. 11/06/23 11:49 11/06/23 11:49 Imaging Data Radiologist's Impression: Venous Doppler Study 11/06/23 07:47 US venous doppler LE RT HISTORY: 63 years-old Female R calf pain/swelling Acute pain and swelling of the right leg COMPARISON: 06/09/23 TECHNIQUE: Multiple real-time sonographic images of the right lower extremity deep venous structures were obtained assessing grayscale appearance, color and spectral flow. FINDINGS: Normal flow, compressibility, phasicity and augmentation. IMPRESSION: No sonographic evidence of deep venous thrombosis. ACT 112: Negative or not required by law. The above report was generated using voice recognition software. It may contain grammatical, syntax or spelling errors. Electronically signed by: Naeem Gomez M.D. 11/06/2023 9:22 AM Hip/Pelvis X-Ray 11/06/23 09:48 XR hip RT 2V w pelvis HISTORY: 63 years-old Female R hip pain chronic pain in the low back and right hip COMPARISON: CT abdomen and pelvis 04/18/2023 TECHNIQUE: AP view of the pelvis with 2 views of the right hip FINDINGS: Severe right with moderate to severe left hip osteoarthritis. Demineralized appearance of the bones. No acute fracture or dislocation. Chronic postoperative changes of the lumbar spine. Surgical clips project over the mid pelvis. Severe degeneration of the pubic symphysis. IMPRESSION: 1. No acute fracture or dislocation. 2. Severe right hip osteoarthritis. ACT 112: Negative or not required by law. The above report was generated using voice recognition software. It may contain grammatical, syntax or spelling errors. Electronically signed by: Naeem Gomez M.D. 11/06/2023 11:20 AM MDM Narrative 63-year-old female who presents to the emergency department for evaluation of right low back pain with radiation into the leg. Reviewed pertinent visits and past medical history performed. Vital signs in ED stable, afebrile. Patient was seen and evaluated as above. She had lumbar spine MRI performed on 10/03 which was relatively unremarkable. She was evaluated for similar symptoms in this emergency department on 10/06. Dr. Quezada, spine surgeon, was consulted at this time and reviewed MRI and did not feel any emergent surgical intervention was warranted. Patient notes increased pain over the last few days. She denies any traumas or falls. Her pain radiates from the right low back into her thigh medially all the way into the foot. On exam, patient is well-appearing in no acute distress. She is tender over the right SI joint. Lower extremities neurovascularly intact. There are no signs of infection. Abdominal exam benign. She denies any bowel/bladder incontinence. X-ray of the right hip was performed as she also notes following with her she orthopedic and is planning to have hip replacement in January. X-ray demonstrates severe osteoarthritis, no acute fracture or dislocation. Patient was medicated with IV Dilaudid, Toradol and Decadron. Upon reassessment, she notes only mild improvement in her pain. She was given additional dose of 1 mg IV Dilaudid as well as p.o. Flexeril and a lidocaine patch. After further medication, she continues to have significant pain. She was updated on all exam findings and test results. Her symptoms are likely related to acute sciatica versus exacerbation in her right hip osteoarthritis. Treatment options were discussed including outpatient management and close follow-up with her spine surgeon and/or orthopedics as outpatient vs inpatient management for pain control. Patient states that she does not feel comfortable going home due to her pain and would like to be admitted. She is agreeable to inpatient rehab. Case was discussed with hospitalist, Dr. Ramirez who accepted patient to his service for further management, PT/OT evaluation and likely rehab placement. She was admitted in stable condition. Impression & Plan Lumbar back pain with radiculopathy affecting right lower extremity, Osteoarthritis of right hip, Intractable back pain Discharge Plan Visit Data Chief Complaint: Back Injury/Pain Stated Complaint: PAIN IN RT CALF,NUMBNESS FROM BACK TO TOES,THROBIN ED Provider: [facility] Midlevel Provider: Kassy Lynn Discharge Problem: Lumbar back pain with radiculopathy affecting right lower extremity, Osteoarthritis of right hip, Intractable back pain Patient Disposition: Admitted As Inpatient Discharge Instructions Interventions: ED Discharge Assessment Last Done: 11/06/23 13:19
[2023-11-06] MEDS ORDERED: CYCLOBENZAPRINE HCL 10 MG TAB PO STA (08:50)
[2023-11-06] MEDS ORDERED: LIDOCAINE 5% 1 PATCH TD STA (08:50)
--- NOTE | 2023-11-06 09:24 | Ultrasound Report ---
US venous doppler LE RT HISTORY: 63 years-old Female R calf pain/swelling Acute pain and swelling of the right leg COMPARISON: 06/09/23 TECHNIQUE: Multiple real-time sonographic images of the right lower extremity deep venous structures were obtained assessing grayscale appearance, color and spectral flow. FINDINGS: Normal flow, compressibility, phasicity and augmentation. IMPRESSION: No sonographic evidence of deep venous thrombosis. ACT 112: Negative or not required by law. The above report was generated using voice recognition software. It may contain grammatical, syntax o r spelling errors. Electronically signed by: Naeem Gomez M.D. 11/06/2023 9:22 AM
--- NOTE | 2023-11-06 11:21 | XRay Report ---
XR hip RT 2V w pelvis HISTORY: 63 years-old Female R hip pain chronic pain in the low back and right hip COMPARISON: CT abdomen and pelvis 04/18/2023 TECHNIQUE: AP view of the pelvis with 2 views of the right hip FINDINGS: Severe right with moderate to severe left hip osteoarthritis. Demineralized appearance of the bones. No acute fracture or dislocation. Chronic postoperative changes of the lumbar spine. Surgical clips p roject over the mid pelvis. Severe degeneration of the pubic symphysis. IMPRESSION: 1. No acute fracture or dislocation. 2. Severe right hip osteoarthritis. ACT 112: Negative or not required by law. The above report was generated using voice recognition software. It may contain grammatical, syntax o r spelling errors. Electronically signed by: Naeem Gomez M.D. 11/06/2023 11:20 AM
--- NOTE | 2023-11-06 11:48 | History & Physical Report ---
Date of Service November 06, 2023 Assessment & Plan (1) Right leg pain: Plan: History fits more with radiculopathy however previously suspected to be due to her severe right hip osteoarthritis in addition Patient does not feel safe to be at home at this time and willing to go to inpatient rehab therefore will observe in the hospital with PT/OT evals as unable to get to rehab from the emergency room Acetaminophen 1 g p.o. TID, Toradol 30 mg IV q.6 hourly for 2 days, oxycodone 5 to 10 mg q.4 hourly PRN for breakthrough pain, lidocaine patch Failed gabapentin due to blurring of vision, could consider pregabalin if above measures are ineffective Consult pain management Consult orthospine Patient to call her orthopedic hip surgeon at [facility] (Dr. Lindquist) to see if her surgery can be expedited as currently booked for January. (2) Osteoarthritis of right hip: Plan: No previous improvement with hip injection therefore do not recommend repeating this Pain medication as above (3) Morbid obesity: Plan VTE prophylaxis - Lovenox 40 mg SQ BID Diet - gluten-free Disposition - observation to med/surg Admission and Anticipated Discharge Date Admission Date: November 06, 2023 History of Present Illness Chief Complaint: Right leg pain Primary Care Provider: Goyo Yanes MD Beryl Villanueva is a 63-year-old female with known severe right hip osteoarthritis who presents to the emergency room with right leg pain. She presented to the ER with a similar episode in September but managed to be discharged at that time. This was mainly numbness rather than the pain however. Her MRI done 3 days prior to that visit was reviewed by Dr. Quezada who noted progression of degeneration in her back but no acute/emergent surgical findings. She reports the pain improved but never went fully away and is much worse over the last 2 days. No traumatic exacerbating event. She also has a similar admission in February 2023 at which time there was some debate whether her pain was from her back or right hip. She now follows with Dr. Lindquist at [facility] and has a planned right hip replacement in January. For pain relief she is currently using regular naproxen and as needed oxycodone. No history of chronic kidney disease, gastric ulcers or bleeds. Gabapentin caused blurry vision states she normally takes this. PDMP reviewed and most recently picked up 45 tablets of oxycodone 5 mg on October 27 - she notes still having these tablets at home. Allergies Allergy/AdvReac Type Severity Reaction Status Date / Time celecoxib [From Celebrex] Allergy Intermediate swelling Unverified 11/02/23 14:53 gabapentin Allergy Intermediate Blurry Unverified 11/02/23 14:53 Vision hydroxyzine Allergy Intermediate HYPERACTIVE Verified 11/02/23 14:53 levofloxacin Allergy Mild RASH Verified 11/02/23 14:53 Quinolones Allergy Mild RASH Verified 11/02/23 14:53 wheat Allergy Mild GI Verified 11/02/23 14:53 SENSITIVITY diphenhydramine AdvReac Intermediate "KEEPS ME Verified 11/02/23 14:53 AWAKE INSTEAD OF MAKING ME SLEEPY" prednisone AdvReac Intermediate PSYCHOTIC Verified 11/02/23 14:53 COMPLICATIONS tramadol AdvReac Intermediate "OUT OF Verified 11/02/23 14:53 BODY" Sulfa (Sulfonamide AdvReac Mild GI UPSET Verified 11/02/23 14:53 Antibiotics) Home Medications Medication Instructions Recorded Confirmed Type vitamin B complex 1 cap PO QAM 07/17/18 11/06/23 History cholecalciferol (vitamin D3) 25 2,000 units PO QAM 06/01/20 11/06/23 History mcg (1,000 unit) capsule (Vitamin D3) lidocaine 5 % topical patch 1 patch topical DAILY PRN pain #15 02/06/23 11/06/23 Rx ea acetaminophen 500 mg tablet 500 mg PO BID PRN Pain 04/24/23 11/06/23 History naproxen sodium 220 mg tablet 440 mg PO QAM PRN Pain 04/24/23 11/06/23 History (Aleve) krill 1,000 mg-omega-3 170 mg-dha 1 cap PO BID 10/06/23 11/06/23 History 50 mg-epa 80 [id number] capsule (krill oil) magnesium 250 mg tablet 250 mg PO DAILY 10/06/23 11/06/23 History zinc 100 mg tablet 100 mg PO DAILY 10/06/23 11/06/23 History oxycodone 5 mg tablet 5 mg PO HS pain 11/06/23 11/06/23 History Past Med/Surg History Medical History Lipedema Fatty infiltration of liver Dyslipidemia Prediabetes Sacroiliac joint pain Postlaminectomy syndrome of lumbosacral region History of COVID-19 06/2022- fever, cough; resolved Osteoarthritis of right hip History of prediabetes Morbid obesity with BMI of 50.0-59.9, adult Urinary incontinence Right leg weakness Osteoarthritis Chronic back pain RLE RADICULOPATHY; LE NEUROPATHY Hx of sarcoidosis NO RECENT ISSUES. SINGLE FLARE 2012. Anxiety Hypothyroidism Surgical History Hx of arthroscopy of left knee Hx of spinal surgery History of right knee joint replacement H/O bilateral salpingo-oophorectomy History of carpal tunnel release RT/LEFT History of bilateral tubal ligation [place] teeth removed History of myringotomy History of esophagogastroduodenoscopy (EGD) History of breast biopsy R BREAST-BENIGN History of section X4 History of colonoscopy History of appendectomy History of bronchoscopy TO DX SARCODOSIS 2012 S/P lumbar spinal fusion S/P cervical spinal fusion GOOD ROM S/P partial hysterectomy Family History Brother Diabetes Colorectal cancer Mother Diabetes Stomach cancer Sarcoidosis Lymphoma Father Coronary heart disease Other Cancer Heart disease Hypertension No family history of adverse response to anesthesia No family history of bleeding disorder Social History Smoking Status: Never smoker Second Hand Exposure: No; Do You Dip or Chew Tobacco: No; Hx Alcohol Use: No Hx Substance Use: No Preferred Language: Wolof Communication Ability: Effective Visual Impairment: No Limitations Resource Paraprofessional Required: No Beliefs That Will Affect Care: Voodoo Voodoo Beliefs: SAMARITAN marital status: Current Living Situation: Spouse Current Living Situation Comment: Lives with , patient's brother and SUMEET Feels Safe at Home: Yes Assistive Devices: Cane and Walker Review of Systems Review of Systems: All systems reviewed & are unremarkable except as noted in HPI & below Physical Exam Constitutional: WD/WN, vitals as above Respiratory: normal respiratory effort, lungs clear to auscultation Cardiovascular: RRR, no murmur, no edema Gastrointestinal (Abdomen): normal bowel sounds, soft, nontender, no hepatosplenomegaly Musculoskeletal: Bilateral hip flexion 5/5, knee flexion 5/5, ankle dorsi/plantarflexion 5/5 - somewhat limited by pain on the right side Subjective numbness on entire of right leg medial > lateral side Skin: no rashes, warm and dry Psychiatric: A+Ox3, euthymic affect Results & Data Results & Data Vital Signs (Past 12 Hours) Vital Signs Temp Pulse Pulse Resp BP BP Pulse Ox 11/06/23 11:00 82 18 115/76 95 11/06/23 09:11 85 22 105/63 99 11/06/23 07:10 36.8 C 95 H 20 113/66 100 O2 Del Method 11/06/23 11:00 Room Air 11/06/23 09:11 Room Air 11/06/23 07:10 Room Air Diagnostic Findings US venous doppler LE RT HISTORY: 63 years-old Female R calf pain/swelling Acute pain and swelling of the right leg COMPARISON: 06/09/23 TECHNIQUE: Multiple real-time sonographic images of the right lower extremity deep venous structures were obtained assessing grayscale appearance, color and spectral flow. FINDINGS: Normal flow, compressibility, phasicity and augmentation. IMPRESSION: No sonographic evidence of deep venous thrombosis. XR hip RT 2V w pelvis HISTORY: 63 years-old Female R hip pain chronic pain in the low back and right hip COMPARISON: CT abdomen and pelvis 04/18/2023 TECHNIQUE: AP view of the pelvis with 2 views of the right hip FINDINGS: Severe right with moderate to severe left hip osteoarthritis. Demineralized appearance of the bones. No acute fracture or dislocation. Chronic postoperative changes of the lumbar spine. Surgical clips project over the mid pelvis. Severe degeneration of the pubic symphysis. IMPRESSION: 1. No acute fracture or dislocation. 2. Severe right hip osteoarthritis. Medications Administered ER medications given: Dilaudid 1 mg IV Dexamethasone 10 mg IV Toradol 15 mg IV Flexeril 10 mg p.o. Lidocaine patch Dilaudid 1 mg IV Code Status & VTE Plan Code Status Full VTE Prophylaxis Plan VTE Prophylaxis will be ordered: Yes PG Care Time/CCT Total # of Minutes Spent Total Time Spent with Patient: Total time spent is greater than 50% in coordination of care (as documented) at patient's floor/unit and/or counseling patient: Coding Level of Care Code 07937 INT INP/OBS CARE 2/55MIN Diagnoses Right leg pain M79.604 Primary osteoarthritis of right hip M16.11 Osteoarthritis type: primary Morbid obesity E66.01 (2) Osteoarthritis of right hip Osteoarthritis type: primary Qualified Code(s): M16.11 - Unilateral primary osteoarthritis, right hip
[2023-11-06 12:18] LABS: Basophils # (auto) 0.03 K/uL (0.00-0.20); Basophils % (auto) 0.7 %; Eosinophils # (auto) 0.02 K/uL (0.00-0.50); Eosinophils % (auto) 0.5 %; Hematocrit (blood only) 37.8 % (37.0-47.0); Immature Granulocytes # (auto) 0.02 K/uL (0.01-0.20); Immature Granulocytes % (auto) 0.5 %; Lymphocytes # (auto) 0.57 K/uL (1.20-3.40); Lymphocytes % (auto) 13.3 %; Mean Corpuscular Hemoglobin 29.1 pg (25.0-34.0); Mean Corpuscular Hgb Conc 34.4 g/dL (32.0-36.0); Mean Corpuscular Volume 84.8 fL (80.0-100.0); Mean Platelet Volume 9.7 fL (9.4-12.4); Monocytes # (auto) 0.08 K/uL (0.11-0.59); Monocytes % (auto) 1.9 %; Neutrophils # (auto) 3.56 K/uL (1.40-6.50); Neutrophils % (auto) 83.1 %; Platelet Count 230 K/uL (130-400); RDW Coefficient of Variation 13.5 % (11.5-14.5); RDW Standard Deviation 41.9 fL (36.4-46.3); Red Blood Count 4.46 M/uL (4.20-5.40); White Blood Count 4.28 K/ul (4.8-10.8)
[2023-11-06 12:30] LABS: Albumin Level 4.1 gm/dl (3.4-5.0); Anion Gap 7 (3-11); Bilirubin,Total 0.6 mg/dl (0.2-1.0); Calcium 9.1 mg/dl (8.6-10.3); Carbon Dioxide 25 mmol/L (21-32); Chloride 104 mmol/L (98-107); Magnesium 1.9 mg/dl (1.7-2.4); Potassium 4.3 mmol/L (3.5-5.1); Sodium 136 mmol/L (136-145)
[2023-11-06 12:36] LABS: Alanine Aminotransferase 16 U/L (7-52); Albumin Globulin Ratio 1.3 (0.9-2); Alkaline Phosphatase 50 U/L (34-104); Aspartate Aminotransferase 18 U/L (13-39); BUN Creatinine Ratio 27.1 (10-20); Blood Urea Nitrogen 16 mg/dl (6-23); Est GFR (African American) 113.9 ml/min; Est GFR (Non-African American) 98.2 ml/min; Globulin 3.2 gm/dl (2.5-4.0); Glucose 124 mg/dl (70-99(Fasting)); Total Protein 7.3 gm/dl (6.0-8.3)
[2023-11-06] MEDS ORDERED: ONDANSETRON INJ 2 MG/ML 2 ML VIAL IV PRN (13:24)
[2023-11-06] MEDS ORDERED: Patient's HEIGHT &/or WEIGHT Needed SCH (13:45)
[2023-11-06] MEDS: oxyCODONE HCL IR 5 MG TAB (IMMEDIATE RELEASE) PO PRN ×3 (14:39→22:47)
[2023-11-06] MEDS: ACETAMINOPHEN 500 MG TAB PO SCH ×2 (14:40→21:16)
[2023-11-06] MEDS: KETOROLAC 30 MG/ML VIAL IV SCH ×2 (15:19→21:17)
[2023-11-06] MEDS: oxyCODONE HCL IR 5 MG TAB (IMMEDIATE RELEASE) PO SCH (21:16)
[2023-11-06] MEDS: ENOXAPARIN INJ 40 MG/0.4 ML SYR SQ SCH (21:16)
[2023-11-06] MEDS ORDERED: DOCUSATE SODIUM 100 MG CAP PO PRN (22:36)
[2023-11-07] MEDS: oxyCODONE HCL IR 5 MG TAB (IMMEDIATE RELEASE) PO PRN ×2 (03:22→18:15)
[2023-11-07] MEDS: KETOROLAC 30 MG/ML VIAL IV SCH ×4 (03:22→20:49)
[2023-11-07] MEDS ORDERED: NALOXONE HCL 0.4 MG/1 ML VIAL/CARP IV PRN (05:36)
[2023-11-07] MEDS ORDERED: HYDROmorphone INJ 1 MG/ML SYRINGE IV ONE (05:36)
[2023-11-07] MEDS: ENOXAPARIN INJ 40 MG/0.4 ML SYR SQ SCH ×2 (07:42→20:48)
[2023-11-07] MEDS: ACETAMINOPHEN 500 MG TAB PO SCH ×3 (07:43→20:45)
[2023-11-07] MEDS: MAGNESIUM OXIDE 400 MG TAB PO SCH (08:51)
--- NOTE | 2023-11-07 10:16 | Orthopedic Consultation ---
Date of Consultation November 07, 2023 Assessment & Plan (1) Lumbar back pain with radiculopathy affecting right lower extremity: Patient does have known adjacent level spinal stenosis and lumbar spine significant in nature. She has not noted a significant decline over the past several weeks now with bilateral leg numbness and radiculopathy down the right leg. I would like to obtain updated imaging lumbar spine reviewed these findings make further Recommendation History of Present Illness Reason for Consultation: Back and right leg pain Attending Physician: Edel Glez MD History of Present Illness This is a 63-year-old female known to me the presents with worsening back pain radiating down to the right buttock anterior lateral thigh into her foot. Is markedly exacerbated with standing and ambulation. She has symptoms involving the left lower extremity as well. This has been progressive in nature. She d oes have known osteoarthritis of the right hip advanced in nature. She feels the symptoms are separate from her hip and more related to spine pathology. Allergies Allergy/AdvReac Type Severity Reaction Status Date / Time celecoxib [From Celebrex] Allergy Intermediate swelling Unverified 11/02/23 14:53 gabapentin Allergy Intermediate Blurry Unverified 11/02/23 14:53 Vision hydroxyzine Allergy Intermediate HYPERACTIVE Verified 11/02/23 14:53 levofloxacin Allergy Mild RASH Verified 11/02/23 14:53 Quinolones Allergy Mild RASH Verified 11/02/23 14:53 wheat Allergy Mild GI Verified 11/02/23 14:53 SENSITIVITY diphenhydramine AdvReac Intermediate "KEEPS ME Verified 11/02/23 14:53 AWAKE INSTEAD OF MAKING ME SLEEPY" prednisone AdvReac Intermediate PSYCHOTIC Verified 11/02/23 14:53 COMPLICATIONS tramadol AdvReac Intermediate "OUT OF Verified 11/02/23 14:53 BODY" Sulfa (Sulfonamide AdvReac Mild GI UPSET Verified 11/02/23 14:53 Antibiotics) Home Medications Medication Instructions Recorded Confirmed Type vitamin B complex 1 cap PO QAM 07/17/18 11/06/23 History cholecalciferol (vitamin D3) 25 2,000 units PO QAM 06/01/20 11/06/23 History mcg (1,000 unit) capsule (Vitamin D3) lidocaine 5 % topical patch 1 patch topical DAILY PRN pain #15 02/06/23 11/06/23 Rx ea acetaminophen 500 mg tablet 500 mg PO BID PRN Pain 04/24/23 11/06/23 History naproxen sodium 220 mg tablet 440 mg PO QAM PRN Pain 04/24/23 11/06/23 History (Aleve) krill 1,000 mg-omega-3 170 mg-dha 1 cap PO BID 10/06/23 11/06/23 History 50 mg-epa 80 [id number] capsule (krill oil) magnesium 250 mg tablet 250 mg PO DAILY 10/06/23 11/06/23 History zinc 100 mg tablet 100 mg PO DAILY 10/06/23 11/06/23 History oxycodone 5 mg tablet 5 mg PO HS pain 11/06/23 11/06/23 History Patient History Medical History Lipedema Fatty infiltration of liver Dyslipidemia Prediabetes Sacroiliac joint pain Postlaminectomy syndrome of lumbosacral region History of COVID-19 06/2022- fever, cough; resolved Osteoarthritis of right hip History of prediabetes Morbid obesity with BMI of 50.0-59.9, adult Urinary incontinence Right leg weakness Osteoarthritis Chronic back pain RLE RADICULOPATHY; LE NEUROPATHY Hx of sarcoidosis NO RECENT ISSUES. SINGLE FLARE 2012. Anxiety Hypothyroidism Surgical History Hx of arthroscopy of left knee Hx of spinal surgery History of right knee joint replacement H/O bilateral salpingo-oophorectomy History of carpal tunnel release RT/LEFT History of bilateral tubal ligation [place] teeth removed History of myringotomy History of esophagogastroduodenoscopy (EGD) History of breast biopsy R BREAST-BENIGN History of section X4 History of colonoscopy History of appendectomy History of bronchoscopy TO DX SARCODOSIS 2012 S/P lumbar spinal fusion S/P cervical spinal fusion GOOD ROM S/P partial hysterectomy Family History Brother Diabetes Colorectal cancer Mother Diabetes Stomach cancer Sarcoidosis Lymphoma Father Coronary heart disease Other Cancer Heart disease Hypertension No family history of adverse response to anesthesia No family history of bleeding disorder Social History Smoking Status: Never smoker Second Hand Exposure: No; Do You Dip or Chew Tobacco: No; Hx Alcohol Use: No Hx Substance Use: No Preferred Language: Korean Communication Ability: Effective Visual Impairment: No Limitations Applications Specialist Required: No Beliefs That Will Affect Care: Jew Jew Beliefs: SABIANISM marital status: Current Living Situation: Spouse Current Living Situation Comment: Lives with , patient's brother and SUMEET Feels Safe at Home: Yes Assistive Devices: Cane and Walker Physical Exam Physical Exam: On exam she is sitting at the bedside. She has reasonable strength testing. [place] is equivocal today on the right. Results & Data Vital Signs (Past 12 Hours) Vital Signs Temp Pulse Resp BP Pulse Ox O2 Del Method 11/07/23 06:18 36.7 C 76 14 120/70 97 Room Air
--- NOTE | 2023-11-07 11:01 | Hospitalist Progress Note ---
Date of Service November 07, 2023 Assessment & Plan (1) Right leg pain: Plan: History fits more with radiculopathy however previously suspected to be due to her severe right hip osteoarthritis in addition Patient feels that this pain is different from her known right hip pain MRI showed evidence of mildly progressed discogenic degeneration of L1-L3 with moderate central canal stenosis Acetaminophen 1 g p.o. TID, Toradol 30 mg IV q.6 hourly for 2 days, oxycodone 5 to 10 mg q.4 hourly PRN for breakthrough pain, lidocaine patch Failed gabapentin due to blurring of vision, could consider pregabalin if above measures are ineffective [facility] on consult, appreciate commendations Patient to call her orthopedic hip surgeon at [place] (Dr. Lindquist) to see if her surgery can be expedited as currently booked for January. (2) Osteoarthritis of right hip: Plan: No previous improvement with hip injection therefore do not recommend repeating this Pain medication as above (3) Morbid obesity: Plan: Patient was advised on diet and exercise Plan VTE prophylaxis - Lovenox 40 mg SQ BID Diet - gluten-free Disposition - observation to med/surg Admission and Anticipated Discharge Date Admission Date: November 06, 2023 Subjective Patient seen and examined, complained of bilateral lower extremity pain numbness but more on the right side, with radiating pain and numbness. Review of Systems Review of Systems: All systems reviewed are negative, apart from the ones contained in the history. Physical Exam Physical Exam: The patient is awake, alert and oriented 3, well developed and well nourished, normocephalic and atraumatic, lying in bed and in no acute distress. HEENT--PERRL, EOMI, mucous membranes and oropharynx mildly dry Neck--supple. No JVD. No bruits. Thyroid normal, trachea midline, no adenopathy. Heart--normal S1 and S2. No murmurs, rubs or gallops. Lungs--clear bilaterally, no respiratory distress, no accessory muscle use. Abdomen--normal bowel sounds and soft. Extremities--no cyanosis or clubbing. No edema. Dermatologic--normal skin turgor, normal color, no abnormal lymph nodes, no rash. Neurologic--cranial nerves II through XII grossly intact. Rheumatologic--normal range of motion. Psychiatric--normal affect. Results & Data Results & Data Vital Signs (Past 12 Hours) Vital Signs Temp Pulse Resp BP Pulse Ox O2 Del Method 11/07/23 06:18 98.1 F 76 14 120/70 97 Room Air PG Care Time/CCT Total # of Minutes Spent Total Time Spent with Patient: Total time spent is greater than 50% in coordination of care (as documented) at patient's floor/unit and/or counseling patient: Coding Level of Care Code 33057 SUB INP/OBS CARE 2/35MIN Diagnoses Right leg pain M79.604 Primary osteoarthritis of right hip M16.11 Osteoarthritis type: primary Morbid obesity E66.01 Time Spent (min) 35 (2) Osteoarthritis of right hip Osteoarthritis type: primary Qualified Code(s): M16.11 - Unilateral primary osteoarthritis, right hip
--- NOTE | 2023-11-07 12:00 | Pain Management Consultation ---
Date of Consultation November 07, 2023 Assessment & Plan (1) Lumbar back pain with radiculopathy affecting right lower extremity: (2) Osteoarthritis of right hip: Osteoarthritis type: primary Qualified Code(s): M16.11 - Unilateral primary osteoarthritis, right hip (3) Intractable back pain: (4) Postlaminectomy syndrome of lumbosacral region: (5) Morbid obesity: Plan 1. Patient with intractable low back and lumbar radicular pain with lumbar spine x-rays and MRI ordered per Dr. Quezada 2. Recommend she initiate pregabalin 50 mg nightly tonight then twice daily tomorrow. Side effects versus benefits were discussed. Further titration pending response. 3. Patient unlikely a candidate for further interventional treatment given failure to respond to lumbar/caudal JOSUÉ most recently June [address] Lora. Will await updated MRI for further recommendations. 4. Maintain Oxy IR for as needed pain relief Thank you for allowing us to participate in the care of Mrs. Cotton. History of Present Illness Reason for Consultation: Intractable low back and right lower extremity radicular pain to the foot Requesting Physician: Beau Lancaster MD Attending Physician: Edel Glez MD History of Present Illness Mrs. Cotton is a 63-year-old morbidly obese white female who was admitted due to intractable low back and right lower extremity radicular pattern pain to the level of the foot. Her pain has been ongoing for approximately 1 year in duration and does have known severe right hip DJD and is planned for [facility] in January at [facility], but presented due to increasing low back pain extending to the right lower extremity to the level of foot. She reports the increase in the low back pain, led to this evaluation and admission. She has been utilizing oxycodone in the outpatient setting with minimal relief of her back pain complaints. She feels the oxycodone does relatively well at diminishing her hip region pain complaints. She is under the care of Dr. Lora in the outpatient setting who did perform caudal JOSUÉ most recently June 2023 per her report without benefit. She does report an EMG was completed within the past 1 year as well. Her current pain travels to the level of the foot causing paresthesias of all 5 toes. Her predominant pain complaint is in the medial leg but can travel laterally as well-relatively nondermatomal per description. Due to her calf pain complaint venous Doppler was completed upon her emergent evaluation which was negative for DVT. Her pain is aggravated with standing and ambulatory activities. Patient rates her pain a 4-6/10. Patient was ambulating around the room with a walker with Occupational Therapy upon entering without significant increase in pain complaints. She denies any left lower extremity radicular pattern pain. She denies bowel or bladder incontinence saddle anesthesia. Patient was evaluated Dr. Pilar madera who has ordered up-to-date imaging of the lumbar spine. Patient denies any recent falls or injuries. She has no further constitutional complaints. Plan of care discussed with Dr. Dotty Funez. Pain Assessment Full Body Front + Back: 2 1. Right lumbar/lumbosacral region 2. Right lower extremity-nondermatomal to foot Pain scale - at its best (0-10): 4 Pain scale - at its worst (0-10): 6 Allergies Allergy/AdvReac Type Severity Reaction Status Date / Time celecoxib [From Celebrex] Allergy Intermediate swelling Unverified 11/02/23 14:53 gabapentin Allergy Intermediate Blurry Unverified 11/02/23 14:53 Vision hydroxyzine Allergy Intermediate HYPERACTIVE Verified 11/02/23 14:53 levofloxacin Allergy Mild RASH Verified 11/02/23 14:53 Quinolones Allergy Mild RASH Verified 11/02/23 14:53 wheat Allergy Mild GI Verified 11/02/23 14:53 SENSITIVITY diphenhydramine AdvReac Intermediate "KEEPS ME Verified 11/02/23 14:53 AWAKE INSTEAD OF MAKING ME SLEEPY" prednisone AdvReac Intermediate PSYCHOTIC Verified 11/02/23 14:53 COMPLICATIONS tramadol AdvReac Intermediate "OUT OF Verified 11/02/23 14:53 BODY" Sulfa (Sulfonamide AdvReac Mild GI UPSET Verified 11/02/23 14:53 Antibiotics) Home Medications Medication Instructions Recorded Confirmed Type vitamin B complex 1 cap PO QAM 07/17/18 11/06/23 History cholecalciferol (vitamin D3) 25 2,000 units PO QAM 06/01/20 11/06/23 History mcg (1,000 unit) capsule (Vitamin D3) lidocaine 5 % topical patch 1 patch topical DAILY PRN pain #15 02/06/23 11/06/23 Rx ea acetaminophen 500 mg tablet 500 mg PO BID PRN Pain 04/24/23 11/06/23 History naproxen sodium 220 mg tablet 440 mg PO QAM PRN Pain 04/24/23 11/06/23 History (Aleve) krill 1,000 mg-omega-3 170 mg-dha 1 cap PO BID 10/06/23 11/06/23 History 50 mg-epa 80 jp-zxqnsz-vkagk capsule (krill oil) magnesium 250 mg tablet 250 mg PO DAILY 10/06/23 11/06/23 History zinc 100 mg tablet 100 mg PO DAILY 10/06/23 11/06/23 History oxycodone 5 mg tablet 5 mg PO HS pain 11/06/23 11/06/23 History Pain History Pain Intensity Pain scale - at its best (0-10): 4 Pain scale - at its worst (0-10): 6 Patient History Medical History (Updated 11/07/23 @ 11:58 by Dimas Hernandez PA-C) Lipedema Fatty infiltration of liver Dyslipidemia Prediabetes Sacroiliac joint pain Postlaminectomy syndrome of lumbosacral region History of COVID-19 06/2022- fever, cough; resolved Osteoarthritis of right hip History of prediabetes Morbid obesity with BMI of 50.0-59.9, adult Urinary incontinence Right leg weakness Osteoarthritis Chronic back pain RLE RADICULOPATHY; LE NEUROPATHY Hx of sarcoidosis NO RECENT ISSUES. SINGLE FLARE 2012. Anxiety Hypothyroidism Surgical History Hx of arthroscopy of left knee Hx of spinal surgery History of right knee joint replacement H/O bilateral salpingo-oophorectomy History of carpal tunnel release RT/LEFT History of bilateral tubal ligation [place] teeth removed History of myringotomy History of esophagogastroduodenoscopy (EGD) History of breast biopsy R BREAST-BENIGN History of section X4 History of colonoscopy History of appendectomy History of bronchoscopy TO DX SARCODOSIS 2012 S/P lumbar spinal fusion S/P cervical spinal fusion GOOD ROM S/P partial hysterectomy Family History Brother Diabetes Colorectal cancer Mother Diabetes Stomach cancer Sarcoidosis Lymphoma Father Coronary heart disease Other Cancer Heart disease Hypertension No family history of adverse response to anesthesia No family history of bleeding disorder Social History Smoking Status: Never smoker Second Hand Exposure: No; Do You Dip or Chew Tobacco: No; Hx Alcohol Use: No Hx Substance Use: No Preferred Language: Cook Islander Communication Ability: Effective Visual Impairment: No Limitations Catia Designer Required: No Beliefs That Will Affect Care: Worship Worship Beliefs: CHRISTIANITY marital status: Current Living Situation: Spouse Current Living Situation Comment: Lives with , patient's brother and SUMEET Feels Safe at Home: Yes Assistive Devices: Cane and Walker Physical Exam 2 Physical Exam: General: Patient patient was walking with Occupational Therapy upon any in the room with her walker. Speech and thought process appropriate. Mood and affect appropriate. Cognition intact. Patient morbidly obese and physically deconditioned. Head: Normocephalic and atraumatic. ENT: No evidence of nasal or oral mucosal lesions. Mucous membranes are moist. Eyes: Pupils equal round reactive to light. Neck: Supple without adenopathy and full range of motion. Abdomen: Soft and nondistended. No organomegaly. Bowel sounds active. Back/spine: Complete loss of lumbar lordosis. Nontender over the midline. No focal facet joint tenderness to provocative testing. Minimally tender over the right SI joint to provocative testing and nontender on the left. Moderately tender over the right upper-mid lumbar paravertebral musculature. Minimal spasm. Nontender corresponding on the left. Well-healed midline incision status post prior lumbar laminectomy. Lower extremities: Well-healed anterior patellar incision status post bilateral TKA. SLR increased axial low back pain on the right without radicular component. SLR negative on the left. Strength testing 4+/5 on the right and 5/5 on the left. No focal deficit appreciated. Sensation slightly diminished on the right side to sharp and dull in a nondermatomal pattern when compared to the left. Neurologic: Cranial nerves grossly intact. Ambulatory function slowed and guarded with use of a 4-point walker. Results (Pain Clinic) [phone] Report Patient: CHICHI COTTON Admit Date: 11/06/23 MR#: [id number] Address1: [address] [place] [address] Acct ID:[id number] Address2: Date: 1960 [facility] Zip: [place] [address] Age: 63 Location: ED Sex: F Room/Bed: Att Phy: Diagnosis: PAIN IN RT CALF,NUMBNESS FROM BACK TO TOES,LEG NICOLE Nell Phy: Goyo Yanes MD Service Date: 11/06/23 Fam Phy: Interpreting Phy: Naeem GomezAdmit Phy: Ordering Phy: Kassy Lynn PA-C cc: ~ XR hip RT 2V w pelvis HISTORY: 63 years-old Female R hip pain chronic pain in the low back and right hip COMPARISON: CT abdomen and pelvis 04/18/2023 TECHNIQUE: AP view of the pelvis with 2 views of the right hip FINDINGS: Severe right with moderate to severe left hip osteoarthritis. Demineralized appearance of the bones. No acute fracture or dislocation. Chronic postoperative changes of the lumbar spine. Surgical clips project over the mid pelvis. Severe degeneration of the pubic symphysis. IMPRESSION: 1. No acute fracture or dislocation. 2. Severe right hip osteoarthritis. ACT 112: Negative or not required by law. The above report was generated using voice recognition software. It may contain grammatical, syntax or spelling errors. Electronically signed by: Naeem Gomez M.D. 11/06/2023 11:20 AM Dictated: 11/06/23 1118 Transcribed: 11/06/23 1118 Other Findings: [facility] [place] [phone] Ultrasound Report Patient: CHICHI COTTON Admit Date: 11/06/23 MR#: [id number] Address1: [address] Acct ID:[id number] Address2: Date: 1960 [facility] Zip: [place] [address] Age: 63 Location: ED Sex: F Room/Bed: Att Phy: Diagnosis: PAIN IN RT CALF,NUMBNESS FROM BACK TO TOES,LEG NICOLE Nell Phy: Goyo Yanes MD Service Date: 11/06/23 Fam Phy: Interpreting Phy: Naeem GomezAdmbeatriz Phy: Ordering Phy: Kassy Lynn PA-C cc: ~ US venous doppler LE RT HISTORY: 63 years-old Female R calf pain/swelling Acute pain and swelling of the right leg COMPARISON: 06/09/23 TECHNIQUE: Multiple real-time sonographic images of the right lower extremity deep venous structures were obtained assessing grayscale appearance, color and spectral flow. FINDINGS: Normal flow, compressibility, phasicity and augmentation. IMPRESSION: No sonographic evidence of deep venous thrombosis. ACT 112: Negative or not required by law. The above report was generated using voice recognition software. It may contain grammatical, syntax or spelling errors. Electronically signed by: Naeem Gomez M.D. 11/06/2023 9:22 AM Dictated: 11/06/23919 Transcribed: 11/06/23919
--- NOTE | 2023-11-07 12:17 | XRay Report ---
XR lumbar spine 2-3V HISTORY: 63 years-old Female standing films chronic low back pain COMPARISON: MRI lumbar spine 10/03/2023 TECHNIQUE: 2 views of the lumbar spine FINDINGS: Posterior idania and screw fusion at L2-L3 with discectomy at L2-L5. No evidence of hardware complicatio n. No acute fracture or subluxation identified. Mild to moderate multilevel spondylotic spurring and facet arthrosis. Additional surgical clips project over the mid pelvis. Severe osteoarthritis of the right hip. Unremarkable soft tissues. IMPRESSION: 1. No acute fracture or subluxation. 2. Degenerative and postoperative changes as above. 3. Severe right hip osteoarthritis. ACT 112: Negative or not required by law. The above report was generated using voice recognition software. It may contain grammatical, syntax o r spelling errors. Electronically signed by: Naeem Gomez M.D. 11/07/2023 12:15 PM
--- NOTE | 2023-11-07 14:04 | Magnetic Resonance Report ---
LUMBAR SPINE MRI HISTORY: right leg pain TECHNIQUE: Multiplanar multisequence MRI of the lumbar spine was performed without the use of contras t. COMPARISON: Lumbar spine MRI 10/03/2023. FINDINGS: For the purpose of the report the L5-S1 disc space will be located on axial image 32 of 37. Mild levoscoliosis of the lumbar spine, unchanged. There is posterior decompression and fusion at L2- L3 with pedicle screws and rods. There is also posterior decompression at the L3-L4 level. Discectomy changes at L3-L4 and L4-L5 again noted. There is a hypoplastic L5-S1 disc space. The conus terminate s at the L1 level. No acute fracture or subluxation. Edema within the posterior soft tissues of the m id to lower lumbar spine favors a postoperative changes. No loculated fluid collections. This remains unchanged. The visualized sacrum is intact. Paravertebral soft tissues are unremarkable. Left peripe lvic renal cysts again noted. Transitional lumbosacral anatomy again noted. L1-L2: Broad-based posterior disc bulge asymmetric to the left with ligamentum and facet hypertrophy. This results in moderate central canal narrowing with an AP diameter of approximately 6 mm. The 7 mm left paracentral focal disc protrusion at this level better appreciated on the prior study. Mild to moderate bilateral neural foraminal remains unchanged. L2-L3: No significant central canal or neural foraminal narrowing. L3-L4: No significant central canal or left-sided neural foraminal narrowing. Mild right-sided neural foraminal narrowing again noted. L4-L5: Mild right neural foraminal narrowing, unchanged. No significant central canal or left-sided n eural foraminal narrowing. L5-S1: No significant central canal or neural foraminal narrowing. IMPRESSION: 1. Overall, no significant change compared to the prior study. 2. Postoperative changes as described above. 3. No acute fracture or subluxation. 4. Multilevel degenerative changes as described above most pronounced at the L1-L2 level which demons trates moderate central canal narrowing. ACT 112: Negative or not required by law. Electronically signed by: Ernst Arredondo M.D. 11/07/2023 2:03 PM
[2023-11-07] MEDS: PREGABALIN 50 MG CAP PO SCH (20:45)
[2023-11-07] MEDS: oxyCODONE HCL IR 5 MG TAB (IMMEDIATE RELEASE) PO SCH (20:55)
[2023-11-08] MEDS: KETOROLAC 30 MG/ML VIAL IV SCH ×2 (03:30→09:41)
[2023-11-08] MEDS: oxyCODONE HCL IR 5 MG TAB (IMMEDIATE RELEASE) PO PRN ×4 (03:34→21:05)
[2023-11-08] MEDS: PREGABALIN 50 MG CAP PO SCH ×2 (08:08→20:06)
[2023-11-08] MEDS: ACETAMINOPHEN 500 MG TAB PO SCH ×3 (08:08→20:05)
[2023-11-08] MEDS: MAGNESIUM OXIDE 400 MG TAB PO SCH (08:08)
[2023-11-08] MEDS: ENOXAPARIN INJ 40 MG/0.4 ML SYR SQ SCH ×2 (08:08→20:06)
[2023-11-08 09:00] LABS: BUN Creatinine Ratio 34.3 (10-20); Calcium 9.1 mg/dl (8.6-10.3); Creatinine Clr Calc Pharmacy 97.2 ml/min; Est GFR (African American) 107.6 ml/min; Est GFR (Non-African American) 92.9 ml/min; Potassium 3.9 mmol/L (3.5-5.1)
--- NOTE | 2023-11-08 10:53 | Hospitalist Progress Note ---
Date of Service November 08, 2023 Assessment & Plan (1) Right leg pain: Plan: History fits more with radiculopathy however previously suspected to be due to her severe right hip osteoarthritis in addition Patient feels that this pain is different from her known right hip pain MRI showed evidence of mildly progressed discogenic degeneration of L1-L3 with moderate central canal stenosis Acetaminophen 1 g p.o. TID, Toradol 30 mg IV q.6 hourly for 2 days, oxycodone 5 to 10 mg q.4 hourly PRN for breakthrough pain, lidocaine patch Pregabalin has been dated by pain management [facility] on consult, appreciate commendations (2) Osteoarthritis of right hip: Plan: No previous improvement with hip injection therefore do not recommend repeating this Pain medication as above (3) Morbid obesity: Plan: Patient was advised on diet and exercise Plan VTE prophylaxis - Lovenox 40 mg SQ BID Diet - gluten-free Disposition - observation to med/surg Admission and Anticipated Discharge Date Admission Date: November 06, 2023 Subjective Patient seen and examined, complained of bilateral lower extremity pain numbness but more on the right side, with radiating pain and numbness. Much better overall Review of Systems Review of Systems: All systems reviewed are negative, apart from the ones contained in the history. Physical Exam Physical Exam: The patient is awake, alert and oriented 3, well developed and well nourished, normocephalic and atraumatic, lying in bed and in no acute distress. HEENT--PERRL, EOMI, mucous membranes and oropharynx mildly dry Neck--supple. No JVD. No bruits. Thyroid normal, trachea midline, no adenopathy. Heart--normal S1 and S2. No murmurs, rubs or gallops. Lungs--clear bilaterally, no respiratory distress, no accessory muscle use. Abdomen--normal bowel sounds and soft. Extremities--no cyanosis or clubbing. No edema. Dermatologic--normal skin turgor, normal color, no abnormal lymph nodes, no rash. Neurologic--cranial nerves II through XII grossly intact. Rheumatologic--normal range of motion. Psychiatric--normal affect. Results & Data Results & Data Vital Signs (Past 12 Hours) Vital Signs Temp Pulse Resp BP Pulse Ox O2 Del Method 11/08/23 07:24 98.2 F 69 16 95/54 L 98 Room Air PG Care Time/CCT Total # of Minutes Spent Total Time Spent with Patient: Total time spent is greater than 50% in coordination of care (as documented) at patient's floor/unit and/or counseling patient: Coding Level of Care Code 23362 SUB INP/OBS CARE 2/35MIN Diagnoses Right leg pain M79.604 Primary osteoarthritis of right hip M16.11 Osteoarthritis type: primary Morbid obesity E66.01 Time Spent (min) 35 (2) Osteoarthritis of right hip Osteoarthritis type: primary Qualified Code(s): M16.11 - Unilateral primary osteoarthritis, right hip
[2023-11-08] MEDS: oxyCODONE HCL IR 5 MG TAB (IMMEDIATE RELEASE) PO SCH (20:06)
[2023-11-08] MEDS ORDERED: HYDROmorphone INJ 0.5 MG/0.5 ML SYR IV ONE (22:25)
[2023-11-09] MEDS: oxyCODONE HCL IR 5 MG TAB (IMMEDIATE RELEASE) PO PRN ×2 (05:27→09:46)
[2023-11-09 07:10] LABS: Creatinine Clr Calc Pharmacy 100.1 ml/min; Est GFR (African American) 108.7 ml/min; Est GFR (Non-African American) 93.7 ml/min
[2023-11-09] MEDS: ENOXAPARIN INJ 40 MG/0.4 ML SYR SQ SCH (08:07)
[2023-11-09] MEDS: MAGNESIUM OXIDE 400 MG TAB PO SCH (08:07)
[2023-11-09] MEDS: PREGABALIN 50 MG CAP PO SCH (08:07)
[2023-11-09] MEDS: ACETAMINOPHEN 500 MG TAB PO SCH (08:49)
--- NOTE | 2023-11-09 09:30 | Orthopedic Progress Note ---
Date of Service November 09, 2023 Assessment & Plan (1) Lumbar back pain with radiculopathy affecting right lower extremity: Plan: MRI lumbar spine available for review demonstrates no significant change from September. Had lengthy discussion today with the patient reviewing these findings and recommendations. This time we will continue with observation only regarding her lumbar spine. She will follow-up with Dr. Lora for epidural injections. She is planning for a total hip arthroplasty on the right in January of this year. I will see her afterwards to assess her progress. Admission and Anticipated Discharge Date Admission Date: November 08, 2023 Subjective Back pain controlled leg pain tolerable Physical Exam Physical Exam: Patient is sitting up at bedside. She is comfortable. Is good strength testing. Results & Data Vital Signs (Past 12 Hours) Vital Signs Temp Pulse Resp BP Pulse Ox O2 Del Method 11/09/23 08:13 37.2 C 79 18 101/44 L 99 Room Air 11/08/23 23:54 Room Air Queries Orthopedic Spine Obesity: Yes
--- NOTE | 2023-11-09 11:41 | Discharge Summary ---
Date of Service November 09, 2023 Admission HPI Per Admitting Provider Beryl Villanueva is a 63-year-old female with known severe right hip osteoarthritis who presents to the emergency room with right leg pain. She presented to the ER with a similar episode in September but managed to be discharged at that time. This was mainly numbness rather than the pain however. Her MRI done 3 days prior to that visit was reviewed by Dr. Quezada who noted progression of degeneration in her back but no acute/emergent surgical findings. She reports the pain improved but never went fully away and is much worse over the last 2 days. No traumatic exacerbating event. She also has a similar admission in February 2023 at which time there was some debate whether her pain was from her back or right hip. She now follows with Dr. Lindquist at [place] and has a planned right hip replacement in January. For pain relief she is currently using regular naproxen and as needed oxycodone. No history of chronic kidney disease, gastric ulcers or bleeds. Gabapentin caused blurry vision states she normally takes this. PDMP reviewed and most recently picked up 45 tablets of oxycodone 5 mg on October 27 - she notes still having these tablets at home. Principal Diagnosis hip pain Discharge Exam The patient is awake, alert and oriented 3, well developed and well nourished, normocephalic and atraumatic, lying in bed and in no acute distress. HEENT--PERRL, EOMI, mucous membranes and oropharynx mildly dry Neck--supple. No JVD. No bruits. Thyroid normal, trachea midline, no adenopathy. Heart--normal S1 and S2. No murmurs, rubs or gallops. Lungs--clear bilaterally, no respiratory distress, no accessory muscle use. Abdomen--normal bowel sounds and soft. Extremities--no cyanosis or clubbing. No edema. Dermatologic--normal skin turgor, normal color, no abnormal lymph nodes, no rash. Neurologic--cranial nerves II through XII grossly intact. Rheumatologic--normal range of motion. Psychiatric--normal affect. Discharge Data Allergies Allergy/AdvReac Type Severity Reaction Status Date / Time celecoxib [From Celebrex] Allergy Intermediate swelling Unverified 11/02/23 14:53 gabapentin Allergy Intermediate Blurry Unverified 11/02/23 14:53 Vision hydroxyzine Allergy Intermediate HYPERACTIVE Verified 11/02/23 14:53 levofloxacin Allergy Mild RASH Verified 11/02/23 14:53 Quinolones Allergy Mild RASH Verified 11/02/23 14:53 wheat Allergy Mild GI Verified 11/02/23 14:53 SENSITIVITY diphenhydramine AdvReac Intermediate "KEEPS ME Verified 11/02/23 14:53 AWAKE INSTEAD OF MAKING ME SLEEPY" prednisone AdvReac Intermediate PSYCHOTIC Verified 11/02/23 14:53 COMPLICATIONS tramadol AdvReac Intermediate "OUT OF Verified 11/02/23 14:53 BODY" Sulfa (Sulfonamide AdvReac Mild GI UPSET Verified 11/02/23 14:53 Antibiotics) Consultations 11/06/23 11:05 ED Decision to Admit Stat 11/06/23 13:24 Consult Orthopedic Spine Surgery Routine Consult Pain Management Routine Ordered Studies 11/06/23 07:47 US venous duplex leg [US venous doppler LE RT] Stat 11/07/23 10:11 MR lumbar spine wo con Urgent Hospital Course (1) Right leg pain: History fits more with radiculopathy however previously suspected to be due to her severe right hip osteoarthritis in addition Patient feels that this pain is different from her known right hip pain MRI showed evidence of mildly progressed discogenic degeneration of L1-L3 with moderate central canal stenosis Acetaminophen 1 g p.o. TID, Toradol 30 mg IV q.6 hourly for 2 days, oxycodone 5 to 10 mg q.4 hourly PRN for breakthrough pain, lidocaine patch Pregabalin has been dated by pain management [facility] on consult, appreciate commendations Plan is outpatient follow up (2) Osteoarthritis of right hip: No previous improvement with hip injection therefore do not recommend repeating this Pain medication as above Plan is outpatient hip arthroplasty in January (3) Morbid obesity: Patient was advised on diet and exercise Plan VTE prophylaxis - Lovenox 40 mg SQ BID Diet - gluten-free Disposition - observation to med/surg Total Time Total Time Spent Total Time Spent (In Minutes): 35 Discharge Plan Discharge Items Patient Disposition: Home - Self-Care Reason For Visit: INTRACTABLE RIGHT LEG PAIN Discharge Diagnosis: hip pain Activity: Resume your previous activity Non-emergency contact: Primary Care Provider Call non-emergency contact if: you have any medication questions Follow-up/Referrals: Goyo Yanes MD [Primary Care Provider] - 11/16/23 11:00 am (APPOINTMENT WITH DR GUPTA) Diet: Regular Addtl Attending Provider Instructions: please make appointment to follow up with your orthopedic surgeon Pending Studies at Discharge: No Stand-Alone Forms: My [facility], Smoking Cessation Medications and DC Order Prescriptions: New pregabalin [Lyrica] 50 mg Capsule 50 mg PO BID 30 Days Qty: 60 0RF oxycodone 5 mg capsule 5 mg PO Q6H PRN (Reason: pain) Qty: 10 0RF Continued cholecalciferol (vitamin D3) [Vitamin D3] 25 mcg (1,000 unit) capsule 2,000 units PO QAM vitamin B complex Capsule 1 cap PO QAM lidocaine 5 % adhesive patch,medicated 1 patch TOP DAILY PRN (Reason: pain) Qty: 15 0RF Rx Instructions: do not leave on more than 12 hours acetaminophen 500 mg Tablet 500 mg PO BID PRN (Reason: Pain) naproxen sodium [Aleve] 220 mg Tablet 440 mg PO QAM PRN (Reason: Pain) oxycodone 5 mg tablet 5 mg PO HS zinc 100 mg Tablet 100 mg PO DAILY magnesium 250 mg Tablet 250 mg PO DAILY krill oil [phone] mg Capsule 1 cap PO BID Discharge Orders: Discharge Order (Routine); Ordered 11/09/23 Ordered By: Edel Glez Admission Data Admit Date/Time: 11/08/23 15:41 Attending Provider: Edel Glez Admit Provider: Beau Ramirez Primary Care Provider: Goyo Yanes Other Providers: Beau Ramirez; Kelton Quezada; Dotty Funez Coding Level of Care Code 85938 INP/OBS DISCH >30 MIN Diagnoses Right leg pain M79.604 Primary osteoarthritis of right hip M16.11 Osteoarthritis type: primary Morbid obesity E66.01 Time Spent (min) 35
--- NOTE | 2023-11-09 14:54 | Pain Management Progress Note ---
Date of Service November 09, 2023 Assessment & Plan (1) Lumbar back pain with radiculopathy affecting right lower extremity: (2) Osteoarthritis of right hip: Osteoarthritis type: primary Qualified Code(s): M16.11 - Unilateral primary osteoarthritis, right hip (3) Intractable back pain: (4) Postlaminectomy syndrome of lumbosacral region: (5) Morbid obesity: (6) Spinal stenosis of lumbar region: Plan 1. Recommend she maintain pregabalin 50 mg twice daily. She will discuss further progression of dose with her PCP or Dr. Lora at time of her follow-up visit 2. Dr. Quezada is not recommending any surgical intervention at this time. We discussed her potential candidacy for L1-2 interlaminar JOSUÉ due to her lumbar spinal canal stenosis at L1-2 per MRI. She will further discuss with Dr. Lora at time of follow-up. We discussed that her axial low back pain is primarily mechanical relating to her history of lumbar postlaminectomy syndrome as well as her severe right hip DJD with upcoming right SYLVIA planned for January. Pain service will sign off on patient at this time. Admission and Anticipated Discharge Date Admission Date: November 08, 2023 Subjective Mrs. Cotton was initiated on pregabalin 50 mg twice daily 2 days ago by pain service. She is tolerating medication without notable side effects. She has not noticed any notable benefit. She continues with complaints of axial low back pain and lower extremity paresthesias. She has been ambulating in the room with minimal limitations and slight increase in discomfort. She did undergo a lumbar MRI but has not discussed the results yet with Dr. Quezada. She is concerned about her limited ability to perform her ADL activities due to her lower back pain and paresthesias affecting the lower extremities. Patient has no further constitutional complaints. Physical Exam Physical Exam: General: Patient was sitting up eating breakfast upon and in the room in no acute distress. Speech and thought process appropriate. Mood and affect appropriate. Cognition intact. Patient morbidly obese and physically deconditioned. Back/spine: Complete loss of lumbar lordosis. Nontender over the midline. No focal facet joint tenderness to provocative testing. Minimally tender over the right SI joint to provocative testing and nontender on the left. Moderately tender over the right upper-mid lumbar paravertebral musculature. Minimal spasm. Nontender corresponding on the left. Well-healed midline incision status post prior lumbar laminectomy. Lower extremities: Well-healed anterior patellar incision status post bilateral TKA. SLR increased axial low back pain on the right without radicular component. SLR negative on the left. Strength testing 4+/5 on the right and 5/5 on the left. No focal deficit appreciated. Sensation slightly diminished on the right side to sharp and dull in a nondermatomal pattern when compared to the left. Neurologic: Cranial nerves grossly intact. Ambulatory function not witnessed. Results (Pain Clinic) Diagnostic Review MRI Findings: [place], [place] [phone] Magnetic Resonance Report Patient: CHICHI COTTON Admit Date: 11/06/23 MR#: [id number] Address1: [address] [place] [address] Acct ID:[id number] Address2: Date: 1960 [facility] Zip: [place] [address] Age: 63 Location: 3N Sex: F Room/Bed: [address] Phy: Edel Glez MD Diagnosis: INTRACTABLE RIGHT LEG PAIN Nell Phy: Goyo Yanes MD Service Date: 11/07/23 Fam Phy: Interpreting Phy: Ernst Arredondo [facility] Phy: Beau Ramirez MD Ordering Phy: Kelton Quezada D.O. cc: ~ LUMBAR SPINE MRI HISTORY: right leg pain TECHNIQUE: Multiplanar multisequence MRI of the lumbar spine was performed without the use of contrast. COMPARISON: Lumbar spine MRI 10/03/2023. FINDINGS: For the purpose of the report the L5-S1 disc space will be located on axial image 32 of 37. Mild levoscoliosis of the lumbar spine, unchanged. There is posterior decompression and fusion at L2-L3 with pedicle screws and rods. There is also posterior decompression at the L3-L4 level. Discectomy changes at L3-L4 and L4- L5 again noted. There is a hypoplastic L5-S1 disc space. The conus terminates at the L1 level. No acute fracture or subluxation. Edema within the posterior soft tissues of the mid to lower lumbar spine favors a postoperative changes. No loculated fluid collections. This remains unchanged. The visualized sacrum is intact. Paravertebral soft tissues are unremarkable. Left peripelvic renal cysts again noted. Transitional lumbosacral anatomy again noted. L1-L2: Broad-based posterior disc bulge asymmetric to the left with ligamentum and facet hypertrophy. This results in moderate central canal narrowing with an AP diameter of approximately 6 mm. The 7 mm left paracentral focal disc protrusion at this level better appreciated on the prior study. Mild to moderate bilateral neural foraminal remains unchanged. L2-L3: No significant central canal or neural foraminal narrowing. L3-L4: No significant central canal or left-sided neural foraminal narrowing. Mild right-sided neural foraminal narrowing again noted. L4-L5: Mild right neural foraminal narrowing, unchanged. No significant central canal or left-sided neural foraminal narrowing. L5-S1: No significant central canal or neural foraminal narrowing. IMPRESSION: 1. Overall, no significant change compared to the prior study. 2. Postoperative changes as described above. 3. No acute fracture or subluxation. 4. Multilevel degenerative changes as described above most pronounced at the L1- L2 level which demonstrates moderate central canal narrowing. ACT 112: Negative or not required by law. Electronically signed by: Ernst Arredondo M.D. 11/07/2023 2:03 PM Dictated: 11/07/23 1353 Transcribed: 11/07/23 1353
== END 2023-11-09 13:45 | disposition home or self-care (01) | DRG 552 ==
LOC: EDINP 07:06 → ED 07:06 → SUATTDRO 11:32 → 3N 13:19 → SUATTDRO 11-08 15:41 → 3N 11-08 22:25

== ENCOUNTER 2024-05-03 14:52 | Observation (INO) ==
--- NOTE | 2024-05-03 15:19 | ED Triage Note ---
Date of Service May 03, 2024 Provider in Triage Author: Alan Echeverria History of Present Illness This patient was briefly evaluated while in triage. An abbreviated physical exam was performed. This patient is a 63-year-old Female who presents to the ED for evaluation of POD #3 S/P L SYLVIA in [place], discharged yesterday feeling SOB, chest tightness and having increased heart rate since last night on ASA 325mg BID for DVT prophylaxis referred by surgeon Physical Exam GENERAL: NAD, VSS CARDIOVASCULAR: tachycardic RESPIRATORY: CTA Initial orders for labs and / or imaging were placed and patient was placed in the waiting area until a bed is available. Please see further documentation for the full ED course.
--- NOTE | 2024-05-03 16:36 | XRay Report ---
XR chest 1V not portable HISTORY: Shortness of breath. COMPARISON: Chest 12/25/2023. FINDINGS: No pneumothorax. No pleural effusions. The lungs are clear. The heart is normal in size. Ce rvical and lumbar spinal fusion hardware again noted. IMPRESSION: No acute process. ACT 112: Negative or not required by law. Electronically signed by: Ernst Arredondo M.D. 05/03/2024 4:35 PM
[2024-05-03] MEDS: oxyCODONE HCL IR 5 MG TAB (IMMEDIATE RELEASE) PO STA ×2 (16:44→21:21)
--- NOTE | 2024-05-03 17:05 | Electrocardiogram Report ---
Test Reason : Blood Pressure : / mmHG Vent. Rate : 116 BPM Atrial Rate : 116 BPM P-R Int : 154 ms QRS Dur : 074 ms QT Int : 320 ms P-R-T Axes : 062 041 041 degrees QTc Int : 444 ms Sinus tachycardia Possible Left atrial enlargement Nonspecific ST abnormality Abnormal ECG When compared with ECG of 25-DEC-2023 11:11, Vent. rate has increased BY 38 BPM Confirmed by Goyo Devi ([id number]) on 05/03/2024 5:04:52 PM Referred By: Confirmed By:Neal Devi
[2024-05-03 17:27] LABS: Hematocrit (blood only) 24.7 % (37.0-47.0); Hemoglobin 8.2 g/dl (12.0-16.0); Mean Corpuscular Hemoglobin 27.3 pg (25.0-34.0); Mean Corpuscular Hgb Conc 33.2 g/dL (32.0-36.0); Mean Corpuscular Volume 82.3 fL (80.0-100.0); Mean Platelet Volume 10.1 fL (9.4-12.4); Platelet Count 197 K/uL (130-400); RDW Coefficient of Variation 14.3 % (11.5-14.5); RDW Standard Deviation 42.4 fL (36.4-46.3); White Blood Count 6.29 K/ul (4.8-10.8)
[2024-05-03 17:30] LABS: Basophils # (auto) 0.02 K/uL (0.00-0.20); Basophils % (auto) 0.3 %; Eosinophils # (auto) 0.32 K/uL (0.00-0.50); Eosinophils % (auto) 5.4 %; Immature Granulocytes # (auto) 0.05 K/uL (0.01-0.20); Immature Granulocytes % (auto) 0.8 %; Lymphocytes # (auto) 1.07 K/uL (1.20-3.40); Monocytes # (auto) 0.38 K/uL (0.11-0.59); Monocytes % (auto) 6.4 %; Neutrophils # (auto) 4.11 K/uL (1.40-6.50); Neutrophils % (auto) 69.1 %
[2024-05-03 17:31] LABS: Albumin Level 3.4 gm/dl (3.4-5.0); Anion Gap 7 (3-11); Bilirubin,Total 0.9 mg/dl (0.2-1.0); Calcium 9.1 mg/dl (8.6-10.3); Carbon Dioxide 29 mmol/L (21-32); Chloride 101 mmol/L (98-107); Magnesium 1.9 mg/dl (1.7-2.4); Potassium 4.1 mmol/L (3.5-5.1); Sodium 137 mmol/L (136-145)
[2024-05-03 17:37] LABS: Alanine Aminotransferase 16 U/L (7-52); Albumin Globulin Ratio 1.1 (0.9-2); Alkaline Phosphatase 46 U/L (34-104); Aspartate Aminotransferase 32 U/L (13-39); Blood Urea Nitrogen 12 mg/dl (6-23); Est GFR (African American) 121.8 ml/min; Est GFR (Non-African American) 105.1 ml/min; Globulin 3.1 gm/dl (2.5-4.0); Glucose 144 mg/dl (70-99(Fasting)); Total Protein 6.5 gm/dl (6.0-8.3)
[2024-05-03 17:42] LABS: Troponin I High Sensitivity 3.4 pg/ml (0-14)
[2024-05-03] MEDS: SODIUM CHLORIDE 0.9% 1,000 ML IV ONE (17:52)
[2024-05-03] MEDS: OPTIRAY 320 125ml IV ONE (18:08)
--- NOTE | 2024-05-03 18:31 | CT Scan Report ---
CT ANGIOGRAM OF THE CHEST CLINICAL HISTORY: Atypical chest pain. Reported history of recent surgery. COMPARISON STUDY: Chest x-ray dated 05/03/2024. Chest CT dated 07/03/2022. TECHNIQUE: Following the IV administration of 118 cc of Optiray 320, CT angiogram of the chest was pe rformed from the upper abdomen to the thoracic inlet utilizing the pulmonary embolus protocol. Images are reviewed in the axial, sagittal, and coronal planes. 3-D MIPS images are created and assessed. I V contrast was administered without complication. A dose lowering technique was utilized adhering to the principles of ALARA. CT DOSE: 781.84 mGy.cm FINDINGS: Thyroid: Imaged portions of the thyroid gland are normal in size and attenuation. Thoracic aorta: The thoracic aorta is normal in caliber and demonstrates standard 3-vessel arch anato my. No dissection is seen. Pulmonary vasculature: The pulmonary trunk is normal in caliber. There are no filling defects identif ied in main, lobar, or segmental pulmonary branches to suggest pulmonary embolus. Heart: The heart is top normal in size and without pericardial effusion. Lungs and pleural spaces: Evaluation of the lung parenchyma is degraded by motion artifact. No airspa ce consolidation or pleural effusion is identified. The trachea and central airways are clear. Mediastinum: There is no mediastinal lymphadenopathy. Kati: Clear. Axillae: There is no axillary lymphadenopathy. Upper abdomen: Partially visualized upper abdominal viscera is within normal limits. Skeletal structures: The skeletal structures are heterogeneously osteopenic. Again the changes noted in the thoracic spine. Fusion hardware is seen in the lower cervical spine. No lytic or blastic bony lesions are seen. IMPRESSION: 1. There is no evidence of pulmonary embolus in the main, lobar, or segmental pulmonary arteries. 2. The lungs are clear. ACT 112: Negative or not required by law. Electronically signed by: Bulmaro Fraga M.D. 05/03/2024 6:29 PM
--- NOTE | 2024-05-03 18:44 | Emergency Department Note ---
Impression & Plan Sinus tachycardia, Ambulatory dysfunction ED Provider Note HISTORY OF PRESENT ILLNESS: Patient is a 63-year-old female presenting with chest pressure and shortness of breath. Patient reports that symptoms developed last night while she was laying in bed. States that her Fitbit was alarming and telling her that she was exercising when she was resting in bed. Reports her heart rate was elevated. She states that her Fitbit was telling her to be evaluated with the persistent tachycardia. Patient describes a constant chest pressure in the substernal region. Denies any DVT or PE history. Denies any history of cardiac stents. She is on 325 mg aspirin daily. She is 3 days postop from a left hip replacement in [facility]. She reports that her pain medications at home are "not treating my pain." She states "I am allergic to morphine, but it does not work. They normally give me Dilaudid." She denies any recent cough or fevers. She reports feeling nauseous and dizzy. ROS: as above PHYSICAL EXAM: Constitutional: Patient appears in no acute distress. Morbidly obese HENT: Head: Normocephalic and atraumatic. Eyes: EOMI, PERRL Mouth/Throat: Mucous membranes moist. Neck: Trachea midline. Neck supple. Cardiovascular: Tachycardic with regular rhythm. No murmurs, rubs or gallops. Intact distal pulses. Pulmonary/Chest: No respiratory distress. Breath sounds clear and equal bilaterally. No wheezes or rales. Abdominal: Abdomen soft, no tenderness, rebound or guarding. Musculoskeletal: No edema, tenderness or deformity noted. Skin: Warm and dry. No rash, erythema, pallor or cyanosis Psychiatric: Appropriate mood and affect for situation. Neurological: Alert and keenly responsive. CN II-XII grossly intact, moving all extremities equally and fully. MDM: - Vitals signs showed tachycardia - History obtained via patient. History as above. - Chronic conditions affecting care: PE; morbid obesity; HLD - Differential diagnoses include, but are not limited to: uncontrolled pain; pulmonary embolism; pneumonia; ACS; dysrhythmia; dehydration; electrolyte abnormality - Order placed for continuous cardiac monitoring. At this time, monitor showed rate of 102 bpm with normal sinus rhythm, per my interpretation. - External medical records reviewed. PDMP was reviewed. Patient has received 35 prescriptions from 19 prescribers. She was last prescribed 20 tabs of oxycodone 5 mg tabs on 04/30/2024. She is also prescribed 30 tabs of 50 mg tramadol. She is noted to get recurrent all prescriptions every few months. - EKG interpreted by myself showed normal sinus rhythm. Rate tachycardic at 116 bpm. QT 320. No acute ischemic changes. - Laboratory workup interpreted by myself showed normal WBC; anemia (Hgb 8.2); normal PT/INR; stable electrolytes; normal troponin - CXR negative for pneumonia, per my interpretation - Viral respiratory panel negative - CT PE negative for PE. - Patient given PO oxycodone per triage order. Given 1L NS for tachycardia and 50 mcg IV fentanyl for hip pain. - Discussed results with the patient. Recommended discharge home, she has no significant abnormality on her workup. However, she expresses that she lives home with her who is disabled. She reports that she was discharged home and ambulatory with a walker. However, she reports that since being home she has been able to get around secondary to the pain in her hip. She reports that she was told not to take oxycodone, but has been taking it. She reports that she was told to take tramadol. She states that "none of these are working for me." She states that "I cannot get around at home like this." Patient does not have any obvious findings of infection on assessment of her left hip. No fevers, no leukocytosis and no significant overlying erythema. Will discuss case with hospitalist for potential admission for PT/OT assessment and likely placement. I did discuss with the patient that IV Dilaudid is not indicated for her postoperative pain. - Discussion was had with telephonic nurse case manager about patient's case and need for admission - Hospitalist, Dr. Murphy, consulted for admission - [facility] for further evaluation and management. ASSESSMENT AND PLAN: Diagnosis: ambulatory dysfunction; sinus tachycardia Plan: admit Past Med/Surg History Problem List (Updated 05/03/24 @ 20:16 by Diane Vickers MD) Ambulatory dysfunction (Acute) Sinus tachycardia (Acute) Spinal stenosis of lumbar region Intractable back pain (Acute) Osteoarthritis of right hip (Acute) Lumbar back pain with radiculopathy affecting right lower extremity (Acute) Right leg pain Lipedema Fatty infiltration of liver Dyslipidemia Prediabetes Osteoarthritis of right hip Sacroiliac joint pain Postlaminectomy syndrome of lumbosacral region Right leg weakness Migraine (Chronic) Morbid obesity (Chronic) Neurogenic claudication due to lumbar spinal stenosis Metabolic syndrome Pulmonary embolism Sensorineural hearing loss (SNHL) of both ears 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 SINGLE FLARE 2012. Anxiety Hypothyroidism Surgical History Hx of arthroscopy of left knee Hx of spinal surgery History of right knee joint replacement H/O bilateral salpingo-oophorectomy History of carpal tunnel release RT/LEFT History of bilateral tubal ligation [place] teeth removed History of myringotomy History of esophagogastroduodenoscopy (EGD) History of breast biopsy R BREAST-BENIGN History of section X4 History of colonoscopy History of appendectomy History of bronchoscopy TO DX SARCODOSIS 2012 S/P lumbar spinal fusion S/P cervical spinal fusion GOOD ROM S/P partial hysterectomy Family History Brother Diabetes Colorectal cancer Mother Diabetes Stomach cancer Sarcoidosis Lymphoma Father Coronary heart disease Other Cancer Heart disease Hypertension No family history of adverse response to anesthesia No family history of bleeding disorder Social History Smoking Status: Never smoker Second Hand Exposure: No; Do You Dip or Chew Tobacco: No; Hx Alcohol Use: No Hx Substance Use: No Preferred Language: Montserratian Communication Ability: Effective Visual Impairment: No Limitations Dentures Lab Technician Required: No Beliefs That Will Affect Care: Hindu Hindu Beliefs: YARSANISM marital status: Current Living Situation: Spouse Current Living Situation Comment: Lives with , patient's brother and SUMEET Feels Safe at Home: Yes Assistive Devices: Cane and Walker Allergies Allergies Allergy/AdvReac Type Severity Reaction Status Date / Time morphine Allergy Severe SHORT OF Verified 05/03/24 18:28 BREATH celecoxib [From Celebrex] Allergy Intermediate swelling Verified 05/03/24 18:28 gabapentin Allergy Intermediate Blurry Verified 05/03/24 18:28 Vision Sulfa (Sulfonamide Allergy Intermediate Rash Verified 05/03/24 18:28 Antibiotics) levofloxacin Allergy Mild RASH WITH Verified 05/03/24 18:28 IV MEDICATION Quinolones Allergy Mild Rash Verified 05/03/24 18:28 wheat Allergy Mild GI Verified 05/03/24 18:28 SENSITIVITY diphenhydramine AdvReac Intermediate "KEEPS ME Verified 05/03/24 18:28 AWAKE INSTEAD OF MAKING ME SLEEPY" hydroxyzine AdvReac Intermediate HYPERACTIVE Verified 05/03/24 18:28 prednisone AdvReac Intermediate PSYCHOTIC Verified 05/03/24 18:28 COMPLICATIONS tramadol AdvReac Intermediate "OUT OF Verified 05/03/24 18:28 BODY"/DISORIENTED Home Meds Home Medications Medication Instructions Recorded Confirmed vitamin B complex 1 cap PO QAM 07/17/18 05/03/24 cholecalciferol (vitamin D3) 25 1,000 units PO QAM 06/01/20 05/03/24 mcg (1,000 unit) capsule (Vitamin D3) acetaminophen 500 mg tablet 1,000 mg PO Q8H PRN Pain 04/24/23 05/03/24 krill 1,000 mg-omega-3 170 mg-dha 1 cap PO DAILY 10/06/23 05/03/24 50 mg-epa 80 [id number] capsule (krill oil) levothyroxine 50 mcg tablet 50 mcg PO UD 12/25/23 05/03/24 aspirin 325 mg tablet 325 mg PO BID 05/03/24 05/03/24 cefadroxil 500 mg capsule 500 mg PO BID 05/03/24 05/03/24 loratadine 10 mg tablet (Claritin) 10 mg PO DAILY PRN Congestion 05/03/24 05/03/24 oxycodone 5 mg tablet 5 mg PO Q4H PRN moderate-severe 05/03/24 05/03/24 pain tramadol 50 mg tablet 50 mg PO Q8H PRN Pain 05/03/24 05/03/24 zinc sulfate 50 mg zinc (220 mg) 50 mg PO DAILY 05/03/24 05/03/24 capsule Results & Data (ED) Vital Signs Vital Signs - 24 hr 05/03/24 15:17 05/03/24 17:40 05/03/24 17:40 Temperature 36.7 C Temperature Source Temporal Artery Scan Pulse Rate 112 H 112 H Pulse Rate [Right Finger] 106 H Respiratory Rate 20 16 Respiratory Effort / Characteristics Non-Labored Spontaneous Non-Labored Spontaneous Respiratory Depth Normal Normal Respiratory Pattern Blood Pressure 171/70 H Blood Pressure [Right Arm] 97/66 L Blood Pressure Mean 103 Blood Pressure Mean [Right Arm] 76 Pulse Oximetry 100 97 98 Oxygen Delivery Method Room Air Room Air Room Air Sepsis Recent Fever Within 48 Hours No Sepsis New/Unexplained Change in Mental Status N/A Sepsis Action Taken by Nursing No Action Required 05/03/24 17:40 05/03/24 18:28 05/03/24 19:32 Temperature Temperature Source Pulse Rate 103 H Pulse Rate [Right Finger] 95 H Respiratory Rate 22 Respiratory Effort / Characteristics Non-Labored Spontaneous Non-Labored Spontaneous Respiratory Depth Normal Respiratory Pattern Regular Blood Pressure Blood Pressure [Right Arm] 104/66 Blood Pressure Mean Blood Pressure Mean [Right Arm] 78 Pulse Oximetry 100 Oxygen Delivery Method Room Air Room Air Sepsis Recent Fever Within 48 Hours Sepsis New/Unexplained Change in Mental Status Sepsis Action Taken by Nursing Laboratory Data 05/03/24 16:56 05/03/24 17:07 Lab Results 05/03/24 05/03/24 05/03/24 Range/Units 16:56 17:07 18:47 WBC 6.29 (4.8-10.8) K/ul RBC 3.00 L (4.20-5.40) M/uL Hgb 8.2 L (12.0-16.0) g/dl Hct 24.7 L (37.0-47.0) % MCV 82.3 (80.0-100.0) fL MCH 27.3 (25.0-34.0) pg MCHC 33.2 (32.0-36.0) g/dL RDW Std Deviation 42.4 (36.4-46.3) fL RDW Coeff of Dilshad 14.3 (11.5-14.5) % Plt Count 197 (130-400) K/uL MPV 10.1 (9.4-12.4) fL Immature Gran % (Auto) 0.8 % Neut % (Auto) 69.1 % Lymph % (Auto) 18.0 % [place] % (Auto) 6.4 % Eos % (Auto) 5.4 % Baso % (Auto) 0.3 % Neut # (Auto) 4.11 (1.40-6.50) K/uL Lymph # (Auto) 1.07 L (1.20-3.40) K/uL [place] # (Auto) 0.38 (0.11-0.59) K/uL Eos # (Auto) 0.32 (0.00-0.50) K/uL Baso # (Auto) 0.02 (0.00-0.20) K/uL Immature Gran # (Auto) 0.05 (0.01-0.20) K/uL PT Cancelled 10.6 INR Cancelled 1.0 APTT Cancelled 26 PTT Ratio Cancelled 1.0 Sodium 137 (136-145) mmol/L Potassium 4.1 (3.5-5.1) mmol/L Chloride 101 (98-107) mmol/L Carbon Dioxide 29 (21-32) mmol/L Anion Gap 7 (3-11) BUN 12 (6-23) mg/dl Creatinine 0.48 L (0.6-1.2) mg/dl Est Cr Clr Drug Dosing Not Reportable Est GFR ( Amer) 121.8 ml/min Est GFR (Non-Af Amer) 105.1 ml/min BUN/Creatinine Ratio 25.0 H (10-20) Glucose 144 H (70-99(Fasting)) mg/dl Calcium 9.1 (8.6-10.3) mg/dl Magnesium 1.9 (1.7-2.4) mg/dl Total Bilirubin 0.9 (0.2-1.0) mg/dl AST 32 (13-39) U/L ALT 16 (7-52) U/L Alkaline Phosphatase 46 (34-104) U/L Troponin I High Sens 3.4 (0-14) pg/ml Total Protein 6.5 (6.0-8.3) gm/dl Albumin 3.4 (3.4-5.0) gm/dl Globulin 3.1 (2.5-4.0) gm/dl Albumin/Globulin Ratio 1.1 (0.9-2) Adenovirus (PCR) (NotDetected) B. pertussis DNA (PCR) (NotDetected) B.parapertussis DNA PCR (NotDetected) C. pneumoniae DNA (PCR) (NotDetected) Coronavirus OC43 (PCR) (NotDetected) Coronavirus HKU1 (PCR) (NotDetected) Coronavirus 229E (PCR) (NotDetected) SARS-CoV-2 (PCR) (NotDetected) Coronavirus NL63 (PCR) (NotDetected) Human Metapneumovir PCR (NotDetected) Influenza Type A (PCR) (NotDetected) Influenza Type B (PCR) (NotDetected) M. pneumoniae (PCR) (NotDetected) Parainfluenza 1 (PCR) (NotDetected) Parainfluenza 2 (PCR) (NotDetected) Parainfluenza 3 (PCR) (NotDetected) Parainfluenza 4 (PCR) (NotDetected) RSV (PCR) (NotDetected) Entero/Rhino (PCR) (NotDetected) 05/03/24 Range/Units Unknown WBC (4.8-10.8) K/ul RBC (4.20-5.40) M/uL Hgb (12.0-16.0) g/dl Hct (37.0-47.0) % MCV (80.0-100.0) fL MCH (25.0-34.0) pg MCHC (32.0-36.0) g/dL RDW Std Deviation (36.4-46.3) fL RDW Coeff of Dilshad (11.5-14.5) % Plt Count (130-400) K/uL MPV (9.4-12.4) fL Immature Gran % (Auto) % Neut % (Auto) % Lymph % (Auto) % [place] % (Auto) % Eos % (Auto) % Baso % (Auto) % Neut # (Auto) (1.40-6.50) K/uL Lymph # (Auto) (1.20-3.40) K/uL [place] # (Auto) (0.11-0.59) K/uL Eos # (Auto) (0.00-0.50) K/uL Baso # (Auto) (0.00-0.20) K/uL Immature Gran # (Auto) (0.01-0.20) K/uL PT INR APTT PTT Ratio Sodium (136-145) mmol/L Potassium (3.5-5.1) mmol/L Chloride (98-107) mmol/L Carbon Dioxide (21-32) mmol/L Anion Gap (3-11) BUN (6-23) mg/dl Creatinine (0.6-1.2) mg/dl Est Cr Clr Drug Dosing Est GFR ( Amer) ml/min Est GFR (Non-Af Amer) ml/min BUN/Creatinine Ratio (10-20) Glucose (70-99(Fasting)) mg/dl Calcium (8.6-10.3) mg/dl Magnesium (1.7-2.4) mg/dl Total Bilirubin (0.2-1.0) mg/dl AST (13-39) U/L ALT (7-52) U/L Alkaline Phosphatase (34-104) U/L Troponin I High Sens (0-14) pg/ml Total Protein (6.0-8.3) gm/dl Albumin (3.4-5.0) gm/dl Globulin (2.5-4.0) gm/dl Albumin/Globulin Ratio (0.9-2) Adenovirus (PCR) Not Detected (NotDetected) B. pertussis DNA (PCR) Not Detected (NotDetected) B.parapertussis DNA PCR Not Detected (NotDetected) C. pneumoniae DNA (PCR) Not Detected (NotDetected) Coronavirus OC43 (PCR) Not Detected (NotDetected) Coronavirus HKU1 (PCR) Not Detected (NotDetected) Coronavirus 229E (PCR) Not Detected (NotDetected) SARS-CoV-2 (PCR) Not Detected (NotDetected) Coronavirus NL63 (PCR) Not Detected (NotDetected) Human Metapneumovir PCR Not Detected (NotDetected) Influenza Type A (PCR) Not Detected (NotDetected) Influenza Type B (PCR) Not Detected (NotDetected) M. pneumoniae (PCR) Not Detected (NotDetected) Parainfluenza 1 (PCR) Not Detected (NotDetected) Parainfluenza 2 (PCR) Not Detected (NotDetected) Parainfluenza 3 (PCR) Not Detected (NotDetected) Parainfluenza 4 (PCR) Not Detected (NotDetected) RSV (PCR) Not Detected (NotDetected) Entero/Rhino (PCR) Not Detected (NotDetected) Administered Medications Discontinued Medications Fentanyl Citrate (Fentanyl Citrate Pf 100 Mcg/2 Ml Vial) 50 mcg IV NOW STA Stop: 05/03/24 18:46 Last Admin: 05/03/24 19:20 Dose: 50 mcg Documented By: DESTINY Sodium Chloride (Nss) 1,000 mls @ 999 mls/hr IV .Q1H1M ONE Stop: 05/03/24 17:45 Last Infusion: 05/03/24 18:55 Dose: Infused Documented By: Admin: 05/03/24 17:52 Dose: 999 mls/hr Documented By: MARLENY Ioversol (Optiray 320 125ml) 118 ml IV ONCE ONE Stop: 05/03/24 18:09 Last Admin: 05/03/24 18:08 Dose: 118 ml Documented By: SYL Oxycodone HCl (Oxycodone Hcl Ir 5 Mg Tab (Immediate Release)) 5 mg PO NOW STA Stop: 05/03/24 16:39 Last Admin: 05/03/24 16:44 Dose: 5 mg Documented By: AARON Imaging Data Radiologist's Impression: Chest CTA 05/03/24 15:19 CT ANGIOGRAM OF THE CHEST CLINICAL HISTORY: Atypical chest pain. Reported history of recent surgery. COMPARISON STUDY: Chest x-ray dated 05/03/2024. Chest CT dated 07/03/2022. TECHNIQUE: Following the IV administration of 118 cc of Optiray 320, CT angiogram of the chest was performed from the upper abdomen to the thoracic inlet utilizing the pulmonary embolus protocol. Images are reviewed in the axial, sagittal, and coronal planes. 3-D MIPS images are created and assessed. IV contrast was administered without complication. A dose lowering technique was utilized adhering to the principles of ALARA. CT DOSE: 781.84 mGy.cm FINDINGS: Thyroid: Imaged portions of the thyroid gland are normal in size and attenuation. Thoracic aorta: The thoracic aorta is normal in caliber and demonstrates standard 3-vessel arch anatomy. No dissection is seen. Pulmonary vasculature: The pulmonary trunk is normal in caliber. There are no filling defects identified in main, lobar, or segmental pulmonary branches to suggest pulmonary embolus. Heart: The heart is top normal in size and without pericardial effusion. Lungs and pleural spaces: Evaluation of the lung parenchyma is degraded by motion artifact. No airspace consolidation or pleural effusion is identified. The trachea and central airways are clear. Mediastinum: There is no mediastinal lymphadenopathy. Kati: Clear. Axillae: There is no axillary lymphadenopathy. Upper abdomen: Partially visualized upper abdominal viscera is within normal limits. Skeletal structures: The skeletal structures are heterogeneously osteopenic. Again the changes noted in the thoracic spine. Fusion hardware is seen in the lower cervical spine. No lytic or blastic bony lesions are seen. IMPRESSION: 1. There is no evidence of pulmonary embolus in the main, lobar, or segmental pulmonary arteries. 2. The lungs are clear. ACT 112: Negative or not required by law. Electronically signed by: Bulmaro Fraga M.D. 05/03/2024 6:29 PM Chest X-Ray 05/03/24 15:20 XR chest 1V not portable HISTORY: Shortness of breath. COMPARISON: Chest 12/25/2023. FINDINGS: No pneumothorax. No pleural effusions. The lungs are clear. The heart is normal in size. Cervical and lumbar spinal fusion hardware again noted. IMPRESSION: No acute process. ACT 112: Negative or not required by law. Electronically signed by: Ernst Arredondo M.D. 05/03/2024 4:35 PM Discharge Plan Visit Data Chief Complaint: Shortness of Breath/Dyspnea Stated Complaint: HIP REPLACMENET MONDAY, HIGH HR, SOB ED Provider: Diane Vickers Discharge Problem: Sinus tachycardia, Ambulatory dysfunction Forms Stand Alone Forms: My [employer] Prescriptions Prescriptions: No Action cholecalciferol (vitamin D3) [Vitamin D3] 25 mcg (1,000 unit) capsule 1,000 units PO QAM vitamin B complex Capsule 1 cap PO QAM acetaminophen 500 mg Tablet 1,000 mg PO Q8H PRN (Reason: Pain) [id number] [krill oil] 1,[id number] mg Capsule 1 cap PO DAILY levothyroxine 50 mcg tablet 50 mcg PO UD Rx Instructions: TAKE ONE TABLET BY MOUTH 4 DAYS A WEEK AND ONE AND ONE-HALF TABLETS 3 DAYS A WEEK aspirin 325 mg Tablet 325 mg PO BID tramadol 50 mg tablet 50 mg PO Q8H PRN (Reason: Pain) cefadroxil 500 mg capsule 500 mg PO BID Rx Instructions: STARTED 05/03/24 FOR 14 DAYS loratadine [Claritin] 10 mg Tablet 10 mg PO DAILY PRN (Reason: Congestion) zinc sulfate 50 mg zinc (220 mg) Capsule 50 mg PO DAILY oxycodone 5 mg tablet 5 mg PO Q4H PRN (Reason: moderate-severe pain) Referrals Referrals: Goyo Yanes MD [Primary Care Provider] -
[2024-05-03] MEDS: fentaNYL citrate PF 100 MCG/2 ML VIAL IV STA (19:20)
[2024-05-03 19:25] LABS: Partial Thromboplastin Time 26 Seconds (21-31); Prothrombin Time 10.6 Seconds (9.0-12.0)
[2024-05-03 19:27] LABS: Adenovirus PCR Not Detected (NotDetected); Bordetella parapertussis PCR Not Detected (NotDetected); Bordetella pertussis PCR Not Detected (NotDetected); Chlamydia pneumoniae PCR Not Detected (NotDetected); Coronavirus 229E PCR Not Detected (NotDetected); Coronavirus CoV-2 (COVID19)PCR Not Detected (NotDetected); Coronavirus HKU1 PCR Not Detected (NotDetected); Coronavirus NL63 PCR Not Detected (NotDetected); Coronavirus OC43PCR Not Detected (NotDetected); Human Metapneumovirus PCR Not Detected (NotDetected); Influenza A PCR Not Detected (NotDetected); Influenza B PCR Not Detected (NotDetected); Mycoplasma pneumoniae PCR Not Detected (NotDetected); Parainfluenza Virus 1 PCR Not Detected (NotDetected); Parainfluenza Virus 2 PCR Not Detected (NotDetected); Parainfluenza Virus 3 PCR Not Detected (NotDetected); Parainfluenza Virus 4 PCR Not Detected (NotDetected); Respiratory Syncytial VirusPCR Not Detected (NotDetected); Rhinovirus/Enterovirus PCR Not Detected (NotDetected)
--- NOTE | 2024-05-03 20:53 | History & Physical Report ---
Date of Service May 03, 2024 Assessment & Plan (1) Hip pain: Plan: 63yo female s/p left SYLVIA performed at [facility] presenting with worsening left hip pain and ambulatory dysfunction. Patient has been taking Tylenol, Oxycodone 5mg po q 6 hours and Tramadol 50mg po q 8 hours at home for the pain as well as ASA 325mg po BID for DVT prophylaxis. She reports no evidence of infection but was discharged on prophylactic Cefadroxil. Afebrile. HR has been ST 95-112 bpm. She reports pain has not been well controlled. -Observation to medical -Tylenol 1000mg po q 8 hours scheduled -Oxycodone 5mg po q 4 hours scheduled -Tramadol 50mg po q 8 hours scheduled -Colace 100mg po BID scheduled -Miralax PRN -Monitor for signs of infection. -Treat with Keflex 500mg po BID while inpatient -Continue ASA 325mg po BID for DVT prophylaxis -PT/OT evaluation - patient reports she would like to go home if possible (2) Sinus tachycardia: Plan Chronic Medical Conditions: Hypothyroidism - chronic. stable -Continue Synthroid 50mg - 75mg po daily F/E/N - Saline lock. Electrolytes WNL. Regular/gluten free diet as tolerated Ppx - Continue ASA 325mg po BID Code - Full per discussion with patient Dispo - Observation to medical History of Present Illness Chief Complaint: elevated heart rate Primary Care Provider: Goyo Yanes MD Beryl Villanueva is a 63yo female s/p left SYLVIA performed on 04/30/24 at presenting with increased pain in the left hip as well as elevated heart rate, chest tightness and shortness of breath. She contacted her surgical team at [facility] and was instructed to come to the ER to assess for possible PE. Patient reports that the surgery went well. She was discharged home yesterday 05/02/24. She has home PT scheduled to start in a couple of weeks. She has been taking Oxycodone 5mg po q6 hours and Tramadol 50mg po q 8 hours for pain control at home as well as Tylenol and ASA 325mg po BID. Since being home she has not been doing well. She has had severe pain in her hip. She was able to climb up the stairs to bed last night but had much difficulty coming down the stairs today. She has been able to ambulate to the bathroom today but with significant pain and difficulty. She also noted today that her heart rate was elevated. In the ER she is afebrile, elevated HR 95-112 bpm. BP has been stable. ER Course: Oxycodone 5mg po x 2 doses NSS x 1L Fentanyl 50mcg IV Cephalexin 500mg x 1 Tylenol 1gm IV x 1 Tramadol 50mg x 1 Allergies Allergy/AdvReac Type Severity Reaction Status Date / Time morphine Allergy Severe SHORT OF Verified 05/03/24 18:28 BREATH celecoxib [From Celebrex] Allergy Intermediate swelling Verified 05/03/24 18:28 gabapentin Allergy Intermediate Blurry Verified 05/03/24 18:28 Vision Sulfa (Sulfonamide Allergy Intermediate Rash Verified 05/03/24 18:28 Antibiotics) levofloxacin Allergy Mild RASH WITH Verified 05/03/24 18:28 IV MEDICATION Quinolones Allergy Mild Rash Verified 05/03/24 18:28 wheat Allergy Mild GI Verified 05/03/24 18:28 SENSITIVITY diphenhydramine AdvReac Intermediate "KEEPS ME Verified 05/03/24 18:28 AWAKE INSTEAD OF MAKING ME SLEEPY" hydroxyzine AdvReac Intermediate HYPERACTIVE Verified 05/03/24 18:28 prednisone AdvReac Intermediate PSYCHOTIC Verified 05/03/24 18:28 COMPLICATIONS tramadol AdvReac Intermediate "OUT OF Verified 05/03/24 18:28 BODY"/DISORIENTED Home Medications Medication Instructions Recorded Confirmed Type vitamin B complex 1 cap PO QAM 07/17/18 05/03/24 History cholecalciferol (vitamin D3) 25 1,000 units PO QAM 06/01/20 05/03/24 History mcg (1,000 unit) capsule (Vitamin D3) acetaminophen 500 mg tablet 1,000 mg PO Q8H PRN Pain 04/24/23 05/03/24 History krill 1,000 mg-omega-3 170 mg-dha 1 cap PO DAILY 10/06/23 05/03/24 History 50 mg-epa 80 pt-ljpupa-laswl capsule (krill oil) levothyroxine 50 mcg tablet 50 mcg PO UD 12/25/23 05/03/24 History aspirin 325 mg tablet 325 mg PO BID 05/03/24 05/03/24 History cefadroxil 500 mg capsule 500 mg PO BID 05/03/24 05/03/24 History loratadine 10 mg tablet (Claritin) 10 mg PO DAILY PRN Congestion 05/03/24 05/03/24 History oxycodone 5 mg tablet 5 mg PO Q4H PRN moderate-severe 05/03/24 05/03/24 History pain tramadol 50 mg tablet 50 mg PO Q8H PRN Pain 05/03/24 05/03/24 History zinc sulfate 50 mg zinc (220 mg) 50 mg PO DAILY 05/03/24 05/03/24 History capsule Past Med/Surg History Problem List (Updated 05/03/24 @ 22:57 by Beryl Murphy DO) Hip pain Ambulatory dysfunction (Acute) Sinus tachycardia (Acute) Spinal stenosis of lumbar region Intractable back pain (Acute) Osteoarthritis of right hip (Acute) Lumbar back pain with radiculopathy affecting right lower extremity (Acute) Right leg pain Lipedema Fatty infiltration of liver Dyslipidemia Prediabetes Osteoarthritis of right hip Sacroiliac joint pain Postlaminectomy syndrome of lumbosacral region Right leg weakness Migraine (Chronic) Morbid obesity (Chronic) Neurogenic claudication due to lumbar spinal stenosis Metabolic syndrome Pulmonary embolism Sensorineural hearing loss (SNHL) of both ears 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 SINGLE FLARE 2012. Anxiety Hypothyroidism Surgical History Hx of arthroscopy of left knee Hx of spinal surgery History of right knee joint replacement H/O bilateral salpingo-oophorectomy History of carpal tunnel release RT/LEFT History of bilateral tubal ligation [place] teeth removed History of myringotomy History of esophagogastroduodenoscopy (EGD) History of breast biopsy R BREAST-BENIGN History of section X4 History of colonoscopy History of appendectomy History of bronchoscopy TO DX SARCODOSIS 2012 S/P lumbar spinal fusion S/P cervical spinal fusion GOOD ROM S/P partial hysterectomy Family History Brother Diabetes Colorectal cancer Mother Diabetes Stomach cancer Sarcoidosis Lymphoma Father Coronary heart disease Other Cancer Heart disease Hypertension No family history of adverse response to anesthesia No family history of bleeding disorder Social History Smoking Status: Never smoker Second Hand Exposure: No; Do You Dip or Chew Tobacco: No; Hx Alcohol Use: No Hx Substance Use: No Preferred Language: Croatian Communication Ability: Effective Visual Impairment: No Limitations Motor Home Electrical Foreman Required: No Beliefs That Will Affect Care: Mandaen Mandaen Beliefs: HOAHAOISM marital status: Current Living Situation: Spouse Current Living Situation Comment: Lives with , patient's brother and SUMEET Feels Safe at Home: Yes Assistive Devices: Cane and Walker Review of Systems Review of Systems: All systems reviewed & are unremarkable except as noted in HPI & below Physical Exam Physical Exam: General: patient resting comfortably, NAD, non-toxic in appearance, AA&O x 4 Skin: warm, dry, no rashes or lesions HEENT: NC/AT, PERRL, EOMI, anicteric sclera, conjunctiva without injection, external ear normal to inspection and nontender, nares patent, moist mucus membranes, dentition intact, no oropharyngeal lesions, neck supple, trachea midline, no LAD, no thyromegaly, no JVD Heart: +S1/S2, regular, tachycardic, no m/r/g Lungs: equal air entry bilaterally, no rales/rhonchi/wheezes Abd: +BS, soft, NT/ND, no masses/organomegaly/ascites Ext: warm, 2+ pulses in UE/LE bilaterally, no clubbing/cyanosis or edema, dressing at left hip surgical site clean/dry/initact Neuro: nonfocal, patient AA&O x 4, speech intact, no facial droop, moving all extremities on command with equal strength 5/5 Results & Data Results & Data Vital Signs (Past 12 Hours) Vital Signs Temp Pulse Pulse Resp BP BP Pulse Ox 05/03/24 19:32 103 H 05/03/24 18:28 95 H 22 104/66 100 05/03/24 17:40 05/03/24 17:40 112 H 98 07/12/24 17:40 106 H 16 97/66 L 97 05/03/24 15:17 36.7 C 112 H 20 171/70 H 100 O2 Del Method 05/03/24 19:32 05/03/24 18:28 Room Air 05/03/24 17:40 Room Air 05/03/24 17:40 Room Air 05/03/24 17:40 Room Air 05/03/24 15:17 Room Air Laboratory Results Laboratory Results WBC 6.29 K/ul (4.8-10.8) 05/03/24 16:56 RBC 3.00 M/uL (4.20-5.40) L 05/03/24 16:56 Hgb 8.2 g/dl (12.0-16.0) L 05/03/24 16:56 Hct 24.7 % (37.0-47.0) L 05/03/24 16:56 MCV 82.3 fL (80.0-100.0) 05/03/24 16:56 MCH 27.3 pg (25.0-34.0) 05/03/24 16:56 MCHC 33.2 g/dL (32.0-36.0) 05/03/24 16:56 RDW Std Deviation 42.4 fL (36.4-46.3) 05/03/24 16:56 RDW Coeff of Dilshad 14.3 % (11.5-14.5) 05/03/24 16:56 Plt Count 197 K/uL (130-400) 05/03/24 16:56 MPV 10.1 fL (9.4-12.4) 05/03/24 16:56 Immature Gran % (Auto) 0.8 % 05/03/24 16:56 Neut % (Auto) 69.1 % 05/03/24 16:56 Lymph % (Auto) 18.0 % 05/03/24 16:56 [place] % (Auto) 6.4 % 05/03/24 16:56 Eos % (Auto) 5.4 % 05/03/24 16:56 Baso % (Auto) 0.3 % 05/03/24 16:56 Neut # (Auto) 4.11 K/uL (1.40-6.50) 05/03/24 16:56 Lymph # (Auto) 1.07 K/uL (1.20-3.40) L 05/03/24 16:56 [place] # (Auto) 0.38 K/uL (0.11-0.59) 05/03/24 16:56 Eos # (Auto) 0.32 K/uL (0.00-0.50) 05/03/24 16:56 Baso # (Auto) 0.02 K/uL (0.00-0.20) 05/03/24 16:56 Immature Gran # (Auto) 0.05 K/uL (0.01-0.20) 05/03/24 16:56 PT 10.6 Seconds (9.0-12.0) 05/03/24 18:47 INR 1.0 (0.9-1.1) 05/03/24 18:47 APTT 26 Seconds (21-31) 05/03/24 18:47 PTT Ratio 1.0 05/03/24 18:47 Sodium 137 mmol/L (136-145) 05/03/24 17:07 Potassium 4.1 mmol/L (3.5-5.1) 05/03/24 17:07 Chloride 101 mmol/L (98-107) 05/03/24 17:07 Carbon Dioxide 29 mmol/L (21-32) 05/03/24 17:07 Anion Gap 7 (3-11) 05/03/24 17:07 BUN 12 mg/dl (6-23) 05/03/24 17:07 Creatinine 0.48 mg/dl (0.6-1.2) L 05/03/24 17:07 Est Cr Clr Drug Dosing Not Reportable 05/03/24 17:07 Est GFR ( Amer) 121.8 ml/min 05/03/24 17:07 Est GFR (Non-Af Amer) 105.1 ml/min 05/03/24 17:07 BUN/Creatinine Ratio 25.0 (10-20) H 05/03/24 17:07 Glucose 144 mg/dl (70-99(Fasting)) H 05/03/24 17:07 Calcium 9.1 mg/dl (8.6-10.3) 05/03/24 17:07 Magnesium 1.9 mg/dl (1.7-2.4) 05/03/24 17:07 Total Bilirubin 0.9 mg/dl (0.2-1.0) 05/03/24 17:07 AST 32 U/L (13-39) 05/03/24 17:07 ALT 16 U/L (7-52) 05/03/24 17:07 Alkaline Phosphatase 46 U/L (34-104) 05/03/24 17:07 Troponin I High Sens 3.4 pg/ml (0-14) 05/03/24 17:07 Total Protein 6.5 gm/dl (6.0-8.3) 05/03/24 17:07 Albumin 3.4 gm/dl (3.4-5.0) 05/03/24 17:07 Globulin 3.1 gm/dl (2.5-4.0) 05/03/24 17:07 Albumin/Globulin Ratio 1.1 (0.9-2) 05/03/24 17:07 Adenovirus (PCR) Not Detected (NotDetected) 05/03/24 Unknown B. pertussis DNA (PCR) Not Detected (NotDetected) 05/03/24 Unknown B.parapertussis DNA PCR Not Detected (NotDetected) 05/03/24 Unknown C. pneumoniae DNA (PCR) Not Detected (NotDetected) 05/03/24 Unknown Coronavirus OC43 (PCR) Not Detected (NotDetected) 05/03/24 Unknown Coronavirus HKU1 (PCR) Not Detected (NotDetected) 05/03/24 Unknown Coronavirus 229E (PCR) Not Detected (NotDetected) 05/03/24 Unknown SARS-CoV-2 (PCR) Not Detected (NotDetected) 05/03/24 Unknown Coronavirus NL63 (PCR) Not Detected (NotDetected) 05/03/24 Unknown Human Metapneumovir PCR Not Detected (NotDetected) 05/03/24 Unknown Influenza Type A (PCR) Not Detected (NotDetected) 05/03/24 Unknown Influenza Type B (PCR) Not Detected (NotDetected) 05/03/24 Unknown M. pneumoniae (PCR) Not Detected (NotDetected) 05/03/24 Unknown Parainfluenza 1 (PCR) Not Detected (NotDetected) 05/03/24 Unknown Parainfluenza 2 (PCR) Not Detected (NotDetected) 05/03/24 Unknown Parainfluenza 3 (PCR) Not Detected (NotDetected) 05/03/24 Unknown Parainfluenza 4 (PCR) Not Detected (NotDetected) 05/03/24 Unknown RSV (PCR) Not Detected (NotDetected) 05/03/24 Unknown Entero/Rhino (PCR) Not Detected (NotDetected) 05/03/24 Unknown Impressions Chest CTA 05/03/24 15:19 CT ANGIOGRAM OF THE CHEST CLINICAL HISTORY: Atypical chest pain. Reported history of recent surgery. COMPARISON STUDY: Chest x-ray dated 05/03/2024. Chest CT dated 07/03/2022. TECHNIQUE: Following the IV administration of 118 cc of Optiray 320, CT ang iogram of the chest was performed from the upper abdomen to the thoracic inlet utilizing the pulmonary embolus protocol. Images are reviewed in the axial, sagittal, and coronal planes. 3-D MIPS images are created and assessed. IV contrast was administered without complication. A dose lowering technique was utilized adhering to the principles of ALARA. CT DOSE: 781.84 mGy.cm FINDINGS: Thyroid: Imaged portions of the thyroid gland are normal in size and attenuation. Thoracic aorta: The thoracic aorta is normal in caliber and demonstrates standard 3-vessel arch anatomy. No dissection is seen. Pulmonary vasculature: The pulmonary trunk is normal in caliber. There are no filling defects identified in main, lobar, or segmental pulmonary branches to suggest pulmonary embolus. Heart: The heart is top normal in size and without pericardial effusion. Lungs and pleural spaces: Evaluation of the lung parenchyma is degraded by motion artifact. No airspace consolidation or pleural effusion is identified. The trachea and central airways are clear. Mediastinum: There is no mediastinal lymphadenopathy. Kati: Clear. Axillae: There is no axillary lymphadenopathy. Upper abdomen: Partially visualized upper abdominal viscera is within normal limits. Skeletal structures: The skeletal structures are heterogeneously osteopenic. Again the changes noted in the thoracic spine. Fusion hardware is seen in the lower cervical spine. No lytic or blastic bony lesions are seen. IMPRESSION: 1. There is no evidence of pulmonary embolus in the main, lobar, or segmental pulmonary arteries. 2. The lungs are clear. ACT 112: Negative or not required by law. Electronically signed by: Bulmaro Fraga M.D. 05/03/2024 6:29 PM Chest X-Ray 05/03/24 15:20 XR chest 1V not portable HISTORY: Shortness of breath. COMPARISON: Chest 12/25/2023. FINDINGS: No pneumothorax. No pleural effusions. The lungs are clear. The heart is normal in size. Cervical and lumbar spinal fusion hardware again noted. IMPRESSION: No acute process. ACT 112: Negative or not required by law. Electronically signed by: Ernst Arredondo M.D. 05/03/2024 4:35 PM ECG Additional Comments: EKG with ST at 116bpm, normal axis, AK=266, QRS=74, QFy=125, no acute ischemic changes Code Status & VTE Plan VTE Prophylaxis Plan VTE Prophylaxis will be ordered: Yes PG Care Time/CCT Total # of Minutes Spent Total Time Spent with Patient: Total time spent is greater than 50% in coordination of care (as documented) at patient's floor/unit and/or counseling patient: Coding Level of Care Code 95843 INT INP/OBS CARE 2/55MIN Diagnoses Hip pain M25.559 Sinus tachycardia R00.0
[2024-05-03] MEDS: ACETAMINOPHEN 500 MG TAB PO STA (21:21)
[2024-05-03] MEDS: cephALEXin 500 MG CAP PO STA (21:21)
[2024-05-03] MEDS: traMADol HCL 50 MG TABLET PO STA (21:22)
[2024-05-03] MEDS ORDERED: ONDANSETRON INJ 2 MG/ML 2 ML VIAL IV PRN (23:10)
[2024-05-04] MEDS: DOCUSATE SODIUM 100 MG CAP PO STA (00:25)
[2024-05-04] MEDS: ASPIRIN 325 MG ECTAB PO STA (01:04)
[2024-05-04] MEDS: oxyCODONE HCL IR 5 MG TAB (IMMEDIATE RELEASE) PO SCH (01:04)
[2024-05-04] MEDS: POLYETHYLENE (MIRALAX) 17 GM PACK PO PRN (05:37)
[2024-05-04] MEDS: ACETAMINOPHEN 500 MG TAB PO SCH (05:37)
[2024-05-04] MEDS: LEVOTHYROXINE SODIUM 50 MCG TABLET PO SCH (05:37)
[2024-05-04] MEDS: traMADol HCL 50 MG TABLET PO SCH (05:37)
--- OUTSIDE RECORDS SUMMARY | 2024-05-04 07:12 | External Medical Summary | Continuity of Care Document ---
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 Name Role Phone Goyo Yanes Primary Care Physician [phone] Encounter [facility] [id number] Date(s): 04/19/24 - 04/19/24 [facility] [address] [facility] [place] [address] [facility], [facility] [address], [address] [place] [address] [phone] Encounter Diagnosis Pre-op testing(Discharge Diagnosis) - 04/19/24 Discharge Disposition: Home or Self Care Attending Physician: ADARSH Davis William R Allergies, Adverse Reactions, Alerts Substance Criticality Severity Reaction Reaction Severity Status Pharbedryl ? Unknown? Active morphine Unable to assess criticality Mild SOB - Shortness of breath Active predniSONE ? Unknown Active hydrOXYzine Unable to assess criticality Moderate HYPERACTIVE hyperactive Active gabapentin Unable to assess criticality Moderate Blurry Vision Active sulfa drugs rash Active Levaquin rash per pt IV Active Vistaril ? unknown Active celecoxib Unable to assess criticality Moderate swelling Active quinolones (fluoroquinolone antibiotics) rash Active Allergy (Diphenhydramine HCl) Propensity to adverse reaction Active traMADol disoriented Active levoFLOXacin Unable to assess criticality Mild RASH Active Assessment and Plan Extracted from: Title:Clinical Document Author:ADARSH Davis Willi am R Date:04/19/24 OUTPATIENT NOTE Name: CHICHI COTTON Patient Number:[id number] : 1960 Date of Service: 04/19/2024 Chief complaint: Left hip osteoarthritis History of present illness: Patient presents today for her preoperative history and physical. She is to undergo a left total hip arthroplasty on 04/30/2024 for osteoarthritis of the left hip. Of note, she did have her right hip replaced on 02/13/2024 and continues to do well. She is working with physical therapy and complains of some right groin pain but otherwise is much better than her preoperative pain that she was having. She continues to work on weight loss and again was given risks of postoperative infection, complications from elevated weight. Patient will be taking aspirin 325 mg twice daily postoperatively x 30 days for DVT prophylaxis. A full history and physical was transcribed into her electronic medical record. Risks benefits and all other questions were answered pertaining to her upcoming surgery. She will be admitted on 04/30/2024 for left total hip arthroplasty under Dr. Negrito Lindquist service. _ Immunizations Given and Recorded Vaccine Date Status Refusal Reason pneumococcal 20-valent conjugate vaccine 07/21/23 Recorded SARS-CoV-2 mRNA (Pfizer 12+) bivalent 1 09/23/22 R ecorded influenza virus vaccine, inactivated 08/04/22 Give n influenza virus vaccine, inactivated 08/04/20 Give n influenza virus vaccine, inactivated 08/17/16 Give n influenza virus vaccine, inactivated 08/06/15 Tal rded SARS-CoV-2 (COVID-19) mRNA-1273 vaccine 2 02/07/22 Recorded SARS-CoV-2 (COVID-19) mRNA-1273 vaccine 06/21/21 R ecorded SARS-CoV-2 (COVID-19) mRNA-1273 vaccine 3 12/21/20 Recorded SARS-CoV-2 (COVID-19) mRNA-1273 vaccine 12/18/20 R ecorded SARS-CoV-2 (COVID-19) mRNA-1273 vaccine 4 11/20/20 Recorded SARS-CoV-2 (COVID-19) mRNA-1273 vaccine 5, 6 11/20/20 Recorded SARS-CoV-2 (COVID-19) mRNA-1273 vaccine 7 11/20/20 Recorded tetanus/diphtheria/pertuss, acel (Tdap) 03/29/17 G iven tetanus/diphtheria/pertuss, acel (Tdap) 8 08/18/10 Recorded pneumococcal 23-valent vaccine 9 07/19/13 Recorded influenza virus vaccine, H1N1 10 09/13/09 Recorded hepatitis B adult vaccine 11 01/24/00 Recorded hepatitis B adult vaccine 12 08/18/99 Recorded hepatitis B adult vaccine 13 07/21/99 Recorded tetanus toxoids-diphtheria, Td (Adult) 14 07/21/99 Recorded 1Result Comment: 2022-10-24: Historical information-source unspecified 2Result Comment: 2022-02-09: Historical information-source unspecified 3Result Comment: 2023-07-24: Historical information-source unspecified 4Result Comment: duplicate 5Result Comment: POLLY Szymanski 6Result Comment: POLLY Szymanski duplicate 7Result Comment: [facility] 8Result Comment: 2020-11-24: Historical information-source unspecified 9Result Comment: 2020-11-24: Historical information-source unspecified 10Result Comment: 2020-11-24: Historical information-source unspecified 11Result Comment: 2020-11-24: Historical information-source unspecified 12Result Comment: 2020-11-24: Historical information-source unspecified 13Result Comment: 2020-11-24: Historical information-source unspecified 14Result Comment: 2020-11-24: Historical information-source unspecified Medications Aleve 220 mg oral tablet Start: 01/30/23 2:25:00 PM EDT, 2 tab, PO, q12h, PRN: as needed for arthritis Start Date: 01/30/23 Status: Ordered aspirin 325 mg oral capsule Start: 03/06/24 4:11:00 PM EDT, See Instructions, 1 cap PO Start Date: 03/06/24 Status: Ordered Claritin Start: 03/07/22 8:51:00 AM EDT, 10 mg =, Daily, PRN Start Date: 03/07/22 Status: Ordered Duricef 500 mg oral capsule Start: 02/15/24 9:07:00 AM EDT, 1 cap, PO, q12h, Disp# 28 cap, Pharmacy: [facility] [place] Start Date: 02/15/24 Stop Date: 02/29/24 Status: Ordered Efudex 5% topical cream Start: 03/20/24 8:44:00 AM EDT, 1 appl, topical, bid, Disp# 40 g, Refills: 0, apply to right buttockfor actinic keratosis for 4 weeks and then stop, Pharmacy: [facility] [place] [id number] Start Date: 03/20/24 Status: Ordered Daniella Krill Oil Rosebud-3 oral tablet, chewable Start: 10/30/23 11:00:00 AM EST, 1 cap, Daily, 1 Unknown, Unknown Start Date: 10/30/23 Status: Ordered levothyroxine 50 mcg (0.05 mg) oral tablet Start: 03/20/24 8:44:00 AM EDT, See Instructions, Disp# 180 tab, Refills: 4, TAKE 1 TABLET BY MOUTH 4 DAYS A WEEK AND 1 AND 1/2 TABLETS 3 DAYS A WEEK, Pharmacy: [facility] [place] [id number] Start Date: 03/20/24 Status: Ordered lidocaine topical 5% patch Start: 03/20/24 8:44:00 AM EDT, See Instructions, Disp# 56 patch, Refills: 0, APPY 1 PATCH FOR 12 HOURS TO AFFECTED AREA NEEDED FOR PAIN. REMOVE PATHCH AFTER 12 HOURS, Pharmacy: [facility] [place] [id number] Start Date: 03/20/24 Status: Ordered Macrobid 100 mg oral capsule Start: 03/06/24 4:42:00 PM EDT, 1 cap, PO, bid, Disp# 10 cap, Pharmacy: [facility] [place] [id number] Start Date: 03/06/24 Stop Date: 03/11/24 Status: Ordered Narcan 4 mg/0.1 mL nasal spray Start: 02/07/23 5:02:00 PM EDT, 4 mg =, intranasal, ONCE, Disp# 2 each, Refills: 1, may repeat every2 to 3 minutes until patient responds, Pharmacy: [facility] [place] [id number] Start Date: 02/07/23 Status: Ordered One Touch Finepoint (25G) Lancets Start: 03/20/24 8:44:00 AM EDT, See Instructions, Disp# 30 each, Refills: 11, home glucose testing daily E11.9, Pharmacy: [facility] [place] [id number] Start Date: 03/20/24 Status: Ordered One Touch Verio Glucose Monitor Start: 03/09/20 2:24:00 PM EDT, See Instructions, Disp# 1 each, Refills: 1, Use to check blood sugardaily, Note to Pharmacy: Anahy Delgado 11.9, Pharmacy: [facility] [place] [address] Start Date: 03/09/20 Status: Ordered One Touch Verio Test Strips Start: 03/20/24 8:44:00 AM EDT, See Instructions, Disp# 30 each, Refills: 11, use to check blood sugar daily, Note to Pharmacy: Dx E 11.9, Pharmacy: [facility] Start Date: 03/20/24 Status: Ordered oxyCODONE 5 mg oral tablet Start: 02/19/24 8:35:00 AM EDT, 5 mg =, PO, q4h, Disp# 20 tab, Refills: 0, PRN: as needed for pain, Pharmacy: [facility] Start Date: 02/19/24 Status: Ordered traMADol 50 mg oral tablet Start: 02/22/24 4:23:00 PM EDT, 1 tab, PO, q8h, Disp# 21 tab, Refills: 0, Note to Pharmacy: post-op patient for continued use., Pharmacy: [facility] Start Date: 02/22/24 Status: Ordered Tylenol 500 mg oral tablet Start: 02/13/24 12:45:00 PM EDT, 2 tab, PO, q8h Start Date: 02/13/24 Status: Ordered Vitamin B Complex oral capsule Start: 10/30/23 11:02:00 AM EST, 1 cap, PO, Daily Start Date: 10/30/23 Status: Ordered Vitamin D3 Start: 07/06/18 1:58:00 PM EDT, 1,000 Int_Unit =, PO, Daily Start Date: 07/06/18 Status: Ordered Zinc Start: 01/29/24 9:01:00 AM EDT, 1 tab, Daily Start Date: 01/29/24 Status: Ordered Mental Status 04/19/24 Barriers to Learning one year None evide nt Mandatory Health Literacy Documentation Yes Health Literacy Communication Barriers N ever Primary Language Citizen Of [place] Problem List Condition Confirmation Course Effective Dates Status H ealth Status Informant Anxiety Confirmed 07/18/08 Active Arthritis of multiple sites Confirmed Active Arthritis of right hip Confirmed Active Chronic pain Confirmed Active Fatty liver Confirmed Active Fibromyalgia Confirmed Active Hx of fusion of cervical spine Confirmed Active Total knee replacement status Confirmed Active Hypothyroidism (acquired) Confirmed Active Intertrigo Confirmed Active Right lumbar radiculopathy Confirmed Active Fusion of lumbar spine Confirmed Active Hyperlipidemia, mixed Confirmed Active Morbid obesity Confirmed Active Loss of feeling or sensation Confirmed Active Prediabetes Confirmed Active Lumbar disc herniation Confirmed Active Sacral radiculopathy Confirmed Active Insomnia Confirmed Active Tachycardia Confirmed Active Urinary incontinence in female Confirmed Active Hip osteoarthritis Confirmed Active Diagnosis Diagnosis Type Effective Dates Health Status Cl inical Service Informant Pre-op testing Discharge Diagnosis 04/19/24 Non-Specified Procedures Procedure Date Related Diagnosis Body Site Status History of total hip arthroplasty 2023 Completed Mammogram 1 05/04/[address] of abdomen and pelvis 2 04/18/23 Completed Colonoscopy 3 03/13/23 Completed MRI of lumbar spine without contrast 4 03/07/23 Completed X-ray tomography of lumbar spine 5 03/07/23 Completed X-ray tomography of pelvis a nd right hip 6 03/07/23 Completed Colonoscopy 7 03/06/[address] angiography with contrast 8 07/03/22 Completed Chest X-ray 9 07/01/22 Completed Ultrasonography of left breast 10 03/25/[address] angiography of chest with contrast 11 03/11/22 Completed Doppler ultrasonography of r ight lower extremity vein 12 03/11/22 Completed ECG (electrocardiography) procedure 13 03/11/22 Completed bilateral digital screenin m ammogram tomosynthesis with synthetic 2D with CAD 14 03/04/[address] angio chest PE protocol 15 04/16/21 Completed TOTAL KNEE ARTHROPLASTY 04/06/21 C ompleted TOTAL KNEE ARTHROPLASTY 16 06/23/20 Completed Venous doppler ultrasonograp hy Left leg 17 01/22/20 Completed Mammogram 18 04/30/19 Completed Colonoscopy 19, 20, 21 06/29/18 Co mpleted Pelvis X-ray 22 06/22/18 Completed Chest angiography 23 05/22/18 Comp leted Chest X-ray 24 05/22/[address] of abdomen and pelvis wit hout contrast 25 05/22/18 Completed Mammogram 26 04/18/18 Completed Chest X-ray 27 02/28/18 Completed Chest x-ray 28 12/28/17 Completed Chest X-ray 29 12/01/17 Completed Chest angiography 30 09/03/17 Comp leted Chest X-ray 31 09/03/17 Completed Chest X-ray 32 07/14/[address] of head 33 07/14/17 Completed ECG 34 07/14/17 Completed Ultrasound scan of upper abdomen 35 06/06/17 Completed Surgical pathology procedure 36 05/18/17 Completed Upper GI endoscopy 37, 38 05/17/17 Completed Upper GI endoscopy 39, 40 05/17/17 Completed Echocardiogram 41 05/12/17 Complet ed MRI of brain 42 05/12/17 Completed Mammogram 43 04/13/17 Completed US kidneys 44 04/09/[address] of abdomen and pelvis 45 04/06/17 Completed CXR - Chest X-ray 46, 47 03/17/17 Completed LWR XTR VASC STDY BILAT 48 03/17/17 Completed Ultrasound 49 02/08/17 Completed Ultrasound Biliary 50 02/08/[address] of chest 51 10/23/16 Completed CXR - Chest X-ray 52 10/23/16 Comp leted Pulmonary venous angiogram 53 12/08/15 Completed Ultrasound 54 12/08/15 Completed Fusion of lumbar spine 2016 Co mpleted Ultrasound 55 05/15/15 Completed Colonoscopy 56 06/07/13 Completed Colonoscopy 57 06/07/13 Completed Colonoscopy 58 06/07/13 Completed Endoscopy and biopsy of uppe r gastrointestinal tract 59 06/07/13 Comple mavis Upper GI endoscopy 60 06/07/13 Com pleted Ultrasound-Abdomen 61 06/03/13 Com pleted Fusion of joint of lumbar sp ine with internal fixation by posterior approach 2012 Completed Colonoscopy 62 10/25/11 Completed Endoscopy and biopsy 10/25/11 Comp leted Echocardiogram 11/06/08 Completed Holter monitor 2008 Completed Embolization of uterine artery 1999 Completed Tubal ligation 1997 Completed CARPAL TUNNEL SURGERY 63 1985 Completed Appendectomy Completed Bronchoscopy Completed Cervical spinal fusion Co mpleted section 64 Compl eted section Complete d History of total hysterectomy Completed Partial hysterectomy Comp leted Radiation burn 65 Complet ed Salpingo-oophorectomy [address] [place] [address] Impression: ACR BI-RADS CATEGORY 1: NEGATIVE 1. No evidence of malignancy [address] [place] [address] Impression: 1. No acute infectious or inflammatory findings are identified in the abdomen or pelvis 2. Punctate nonobstructing left renal calculus 3. Hepatomegaly and hepatic steatosis 3non bleeding internal hemorrhoids The examination was normal no specimens collected repeat in [address] [place] [address] Impression: 1.Stable exam from the study obtained less than one month earlier on 02/06/2023 2. No acute fracture or bone marrow edema 3. Degenerative and postoperative changes 4. Neural foraminal narrowing without significant central canal stenosis 5[facility] Impression: 1. No acute bony abnormality is seen involving the lumbar spine 2. Osteopenia with postsurgical and mild spondylotic change 3. Advanced arthritic change is noted in the right hip 6[facility] Impression: 1. No acute bony abnormality is identified 2. Severe osteoarthritic change of the right hip 7Non bleeding internal hemorrhoids were found. The hemorrhoids were small. The exam was otherwise without abnormality. 8Impession: 1. No pulmonary emboli 2. No pleural effusion or airspace consolidation typical for pneumonia 3. mild bronchial wall thickening suggestive of bronchitis or reactive airway disease 9impression: No active disease in the chest 10ACR BI-RADS CATEGORY 1: NEGATIVE No suspicious sonographic abnormality in the left superior breast in the region of the lumpiness pointed out by the patient. There is no targeted sonographic evidence of malignancy. Recommend clinical follow-up and recommend routine bilateral screening mammograms which are next due February 2023 (03/05/2023) 111. No pulmonary emboli. 2. No pleural effusion or airspace consolidation to suggest pneumonia. 3. Hepatomegaly with hepatic steatosis. 12No DVT within the right lower extremity 13Vent. Rate : 081 BPM Atrial Rate : 081 BPM P-R Int : 186 ms QRS Dur : 082 ms QT Int : 370 ms P-R-T Axes : 049 034 020 degrees QTc Int : 429 ms Normal sinus rhythm Possible Left atrial enlargement Low voltage QRS Borderline ECG When compared with ECG of 15-MAR-2021 16:08, Nonspecific T wave abnormality now evident in Inferior leads 14Impression: ACR BI RADS CATEGORY 0: incomplete evaluation: need additional imaging evaluation No mammographic evidence of malignancy in either breast. However, the patient reported a palpable left breast lump, although no mammographic abnormality is seen in this region, dk recommend targeted ultrasound of the lump given that the recommended work-up for a lump includes both mammography andultrasound. 15Unremarkable CTA of the chest. No pulmonary emboli 16right 17no evidence of left lower extremity DVT 18ACR BI RADS Cat 1. negative. There is no mammographic evidence of malig 19One 3 mm polyp in the rectum, removed with a cold biopsy forceps. Resected and retieved. The examination was otherwise normal. The distal rectum and anal verge are normal on retroflexion view. 20Pathology results: Rectum, polypectomy: tubular adenoma 21Repeat in 5 years. 22No acute fracture in pelvis or hips. Mild to moderate osteoarthritis of bilateral hips. 23No evidence for pulmonary embolus. The lungs are clear. 24No active disease in the chest. 251. No evidence of bowel obstruction. No evidence of free air. 2. No evidence of acute appendicitis. No evidence of acute diverticulitis. 3. Nonobstructing punctate left renal calculus. No ureteral calculi identified. 26There is no mammographic evidence of malignancy. A one year screening is recommended. 27Impression: No active disease in the chest 28No active disease in the chest 29No active disease in the chest. 30No acute intrathoracic abnormality identified, specifically no acute aortic pathology or evidence of pulmonary thromboembolic disease. No lobar airspace consolidation to suggest pneumonia. 31No acute cardiopulmonary process. 32No acute cardiopulmonary abnormality. 33No acute intracranial pathology. 34Normal sinus. 351.Hepatic steatosis 2.No evidence of cholelithiasis or biliary duct dilatation. 36Final Diagnosis: 1. Duodenum biopsies- Normal villous architecture with increased intraepithelial lymphocytes. 2. Stomach, Antrum biopsies- Moderate chronic gastritis with mild acute inflammation. Negative for intestinal metapasia, dysplasia and carcinoma H. Pylori immunoperoxidase stain NEGATIVE. Overall chronic inflammation is not increased, no acute inflammation noted, no granulomas seen and no parasites are identified. Recommend correlation with clinical and serologic findings as to the possibility of celiac disease. 37Normal esophagus. Z-line regular, 40cm from the incisors. Normal stomach. Normal examined duodenum.Normal esophagus, dilated. Normal gastric body and antrum, biopsied. Normal examined duodenum, biopsied. 38Pathology results: A) Duodenum, biopsies: Normal villous architecture with increased intraepithelial lymphocytes. See comment. B) Stomach, antrum, biopsies: 1) Moderate chronic gastritis with mild acute innflammation 2) Negative for intestinal, metaplasia, dysplasia and carcinoma. 3) H. pylori immun operoxidase stain negative. Comment: The duodenal biopsies show normal villous architecture. Despite this there is an increase in intraepithelial lymphocytes, even out of the tips of the villi. Overall, chronic inflammation is not increased however. No acute inflammation is noted. No granulomas areseen. No parasites are identified. Celiac disease typically presents with loss of villous arachitecture and increased intraepithelial lymphocytes. However, in some cases villous architecture may be maintained. with only increased intraepithelial lymphoceytes noted. As such, recommend correlation with clinical and serologic findings as to the possiblity of celiac disease. 39Normal esophagus. Z-line regular, 40cm from the incisors. Normal stomach. Normal examined duodenum.Normal esophagus. Dilated. Normal gastric body and antrum. Biopsied. Normal examined duodenum. Biopsied. 40LA grade A reflux esophagitis. Biopsied. Normal stomach. Biopsied Normal examined duodenum 41Unremarkable. 42Unremarkable. 43impression: no mammographic evidence of malignancy. 1 year screening mammogram recommended. 44No hydronephrosis. Bilateral peripelvic cysts are again noted. 45Impression 1. 2mm left renal calculus. No ureteral calculi or hydronephrosis 2. Bilateral parapelvic cysts 3. No evidence for a bowel obstruction 46Pulmonary vascular congestion. Otherwise negative study. 47NO active disease in the chest 48No DVT within the right or left lower extremity. 49No hydronephrosis. Small peripelvic cysts. 50Borderline increase in hepatic echogenicity, possibly indicating hepatic steatosis Ultrasonographically normal gallbladder and pancreas. no evidence of ductal dilation. 51No evidence of pulmonary embolus in the main, lobar or segmental pulmonary arteries No airspace consolidation or pleural effusion 52o active disease in the chest 53No evience of PE 542.5cm mid pole right renal cyst Mild fatty infiltration of liver Otherwise negative 55Hepatic steatosis 56The examined portion of the ileum was normal The entire examined colon is normal Internal hemorrhoids Biopsies taken with cold forceps from the right colon and left colon for evaluation of microscopic colitis. 57The entire colon appeared normal. Biopsies were taken with a cold forceps fromthe right and left colon for evaluation of microscopic evaluation, The terminal ileum appears normal. [facility] 58Exaimed portion of the ileum was normal. The Entire examined colon is normal. Internal hemorrhoids.Biopsies were taken with a cold foreceps from the right colon and left colon for evaluation of microscopic colitis. 59Normal esophagus. Normal stomach. normal examined duodenum. Biopsy was preformed. 60Normal esophagus Normal stomach Normal examined duodenum. Biopsy was performed. 61Mild hepatomegaly and fatty metamorphosis. No significant changes since 09/29/11 62The entire examined colon appeared normal on direct and retroflexion views. Recommendations: Repeatcolonoscopy in 10 yrs for screening purposes. 63Right 64x4 65over use of fluroscope during surgery 15 years ago - bilat buttocks 66bilateral Social History Social History Type Response Smoking Status Never smoked cigaret odalis Sex Female Implantable Device List Procedure Provider Procedure Date Device Type Site Unknown Unknown 02/13/24 Unknown Unknown Device Identifier Serial Number Lot or Batch Number Manufacturing Date Expiration Date Distinct Identification Code MRI Safety Implantable Status Assigning Authority Unknown Unknown [id number] Unknown 12/24/28 Unknown Unknown Active Unkn own Unknown Unknown [id number] Unknown 07/21/28 Unknown Unknown Active Unk nown Unknown Unknown [id number] Unknown 08/02/28 Unknown Unknown Active Un known Unknown Unknown [id number] Unknown 09/07/30 Unknown Unknown Active Un known Unknown Unknown [id number] Unknown 12/28/27 Unknown Unknown Active Unkn own Pre-OP H & P * ADARSH Davis, Tima Curtis: PERFORM Event Display: Pre-OP H & P Authored Date: [id number] PRE-OPERATIVE HISTORY AND PHYSICAL Name: CHICHI COTTON Patient Number: [id number] : 1960 Date of Service: 04/19/2024 PRE-OP Diagnosis: _ Left Hip DJD Planned Procedure: Left SYLVIA 04/30/24 Chief Complaint: Left Hip/groin pain with weightbearing activities History of Present Illness (including history relevant to procedure): _ Pt. with end stage, bone onbone osteoarthritis of Left Hip. Unresponsive to weight loss, PT. Right SYLVIA done 02/13/24 with good results. Pt. wishes to proceed with Left SYLVIA. Review Of Systems: No fever, chills, chest pain or SOB Past Medical History: Problems: Arthritis of right hip Prediabetes Hip osteoarthritis Lumbar disc herniation Loss of feeling or sensation Urinary incontinence in female Fibromyalgia Sacral radiculopathy Tachycardia Total knee replacement status Morbid obesity Hypothyroidism (acquired) Fatty liver Hx of fusion of cervical spine Right lumbar radiculopathy Intertrigo Insomnia Hyperlipidemia, mixed Chronic pain Arthritis of multiple sites Fusion of lumbar spine Anxiety Procedure History Procedure Procedure Date Comments section - x4 Partial hysterectomy History of total hysterectomy Appendectomy Cervical spinal fusion Radiation burn - over use of fluroscope during surgery 15 years ago - bilat buttocks Salpingo-oophorectomy - bilateral Bronchoscopy section History of total hip arthroplasty [facility]23 [facility]: [facility]-R[facility] CATEG[facility] 1: NEGATIVE1. No evidence of malignancy CT of abdomen and [facility]. No acute infectious or inflammatory findings are identified in the abdomen or pelvis2. Punctate nonobstructing left renal calculus3. Hepatomegaly and hepatic steatosis Colonoscopy 03/13/2023 - non bleeding internal hemorrhoidsThe examination was normalno specimens collectedrepeat in 5 years X-ray tomography of pelvis and right [facility]23 [facility]. No acute bony abnormality is identified2. Severe osteoarthritic change of the right hip MRI of lumbar spine without contrast 03[facility]07[facility]2023 [facility]1.Stable exam from the study obtained less than one month earlier on . No acute fracture or bone marrow edema3. Degenerative and postoperative changes4. Neural foraminal narrowing without significant central canal stenosis X-ray tomography of lumbar spine 03/07[facility]2023 [facility]1. No acute bony abnormality is seen involving the lumbar spine2. Osteopenia with postsurgical and mild spondylotic change3. Advanced arthritic change is noted in the right hip Colonoscopy 03/06/2023 - Non bleeding internal hemorrhoids were found. The hemorrhoids were small.The exam was otherwise without abnormality. CT angiography with contrast 07/03/2022 - Impession:1. No pulmonary emboli2. No pleural effusion or airspace consolidation typical for pneumonia3. mild bronchial wall thickening suggestive of bronchitis or reactive airway disease Chest X-ray 07/01/2022 - impression:No active disease in the chest Ultrasonography of left breast 03/25/2022 - ACR BI-RADS CATEGORY 1: NEGATIVE No suspicious sonographic abnormality in the left superior breast in the region of the lumpiness pointed out by the patient. There is no targeted sonographic evidence of malignancy. Recommend clinical follow-up and recommend routine bilateral screening mammograms which are next due February 2023 (03/05/2023) ECG (electrocardiography) procedure 03/11/2022 - Vent. Rate : 081 BPM Atrial Rate : 081 BPM P-R Int : 186 ms QRS Dur : 082 ms QT Int : 370 ms P-R-T Axes : 049 034 020 degrees QTc Int : 429 ms Normal sinus rhythmPossible Left atrial enlargementLow voltage QRSBorderline ECGWhen compared with ECG of 15-MAR-2021 16:08,Nonspecific T wave abnormality now evident in Inferior leads Doppler ultrasonography of right lower extremity vein 03/11/2022 - No DVT within the right lower extremity CT angiography of chest with contrast 03/11/2022 - 1. No pulmonary emboli.2. No pleural effusion or airspace consolidation to suggest pneumonia.3. Hepatomegaly with hepatic steatosis. bilateral digital screenin mammogram tomosynthesis with synthetic 2D with CAD 03/04/2022 - Impression: ACR BI RADS CATEGORY 0: incomplete evaluation: need additional imaging evaluationNo mammographic evidence of malignancy in either breast. However, the patient reported a palpable left breast lump, although no mammographic abnormality is seen in this region, dk recommend targeted ultr asound of the lump given that the recommended work-up for a lump includes both mammography and ultrasound. CT angio chest PE protocol 04/16/2021 - Unremarkable CTA of the chest. No pulmonary emboli TOTAL KNEE ARTHROPLASTY 04/06/2021 TOTAL KNEE ARTHROPLASTY 06/23/2020 - right Venous doppler ultrasonography Left leg 01/22/2020 - no evidence of left lower extremity DVT Mammogram 04/30/2019 - ACR BI RADS Cat 1. negative. There is no mammographic evidence of malig Colonoscopy 06/29/2018 - Repeat in 5 years. - Pathology results: Rectum, polypectomy: tubular adenoma - One 3 mm polyp in the rectum, removed with a cold biopsy forceps. Resected and retieved. The examination was otherwise normal. The distal rectum and anal verge are normal on retroflexion view. Pelvis X-ray 06/22/2018 - No acute fracture in pelvis or hips. Mild to moderate osteoarthritis of bilateral hips. Chest angiography 05/22/2018 - No evidence for pulmonary embolus. The lungs are clear. Chest X-ray 05/22/2018 - No active disease in the chest. CT of abdomen and pelvis without contrast 05/22/2018 - 1. No evidence of bowel obstruction. No evidence of free air. 2. No evidence of acute appendicitis. No evidence of acute diverticulitis. 3. Nonobstructing punctate left renal calculus. No ureteral calculi identified. Mammogram 04/18/2018 - There is no mammographic evidence of malignancy. A one year screening is recommended. Chest X-ray 02/28/2018 - Impression: No active disease in the chest Chest x-ray 12/28/2017 - No active disease in the chest Chest X-ray 12/01/2017 - No active disease in the chest. Chest X-ray 09/03/2017 - No acute cardiopulmonary process. Chest angiography 09/03/2017 - No acute intrathoracic abnormality identified, specifically no acute aortic pathology or evidenceof pulmonary thromboembolic disease.No lobar airspace consolidation to suggest pneumonia. CT of head 07/14/2017 - No acute intracranial pathology. ECG 07/14/2017 - Normal sinus. Chest X-ray 07/14/2017 - No acute cardiopulmonary abnormality. Ultrasound scan of upper abdomen 06/06/2017 - 1.Hepatic steatosis2.No evidence of cholelithiasis or biliary duct dilatation. Surgical pathology procedure 05/18/2017 - Final Diagnosis:1. Duodenum biopsies- Normal villous architecture with increased intraepithelial lymphocytes.2. Stomach, Antrum biopsies- Moderate chronic gastritis with mild acute inflammation.Negative for intestinal metapasia, dysplasia and carcinomaH. Pylori immunoperoxidase stain NEGATIVE.Over all chronic inflammation is not increased, no acute inflammation noted, no granulomas seen and no parasites are identified.Recommend correlation with clinical and serologic findings as to the possibility of celiac disease. Upper GI endoscopy 05/17/2017 - Normal esophagus. Z-line regular, 40cm from the incisors. Normal stomach. Normal examined duodenum. Normal esophagus. Dilated. Normal gastric body and antrum. Biopsied. Normal examined duodenum. Biopsied. - LA grade A reflux esophagitis. Biopsied.Normal stomach. BiopsiedNormal examined duodenum Upper GI endoscopy 05/17/2017 - Pathology results: A) Duodenum, biopsies: Normal villous architecture with increased intraepithelial lymphocytes. See comment. B) Stomach, antrum, biopsies: 1) Moderate chronic gastritis with mild acute innflammation 2) Negative for intestinal, metaplasia, dysplasia and carcinoma. 3) H. pylori imm unoperoxidase stain negative. Comment: The duodenal biopsies show normal villous architecture. Despite this there is an increase in intraepithelial lymphocytes, even out of the tips of the villi. Overall, chronic inflammation is not increased however. No acute inflammation is noted. No granulomas are seen. No parasites are identified. Celiac disease typically presents with loss of villous arachitecture and increased intraepithelial lymphocytes. However, in some cases villous architecture may bemaintained. with only increased intraepithelial lymphoceytes noted. As such, recommend correlation with clinical and serologic findings as to the possiblity of celiac disease. - Normal esophagus. Z-line regular, 40cm from the incisors. Normal stomach. Normal examined duodenum. Normal esophagus, dilated. Normal gastric body and antrum, biopsied. Normal examined duodenum, biopsied. MRI of brain 05/12/2017 - Unremarkable. Echocardiogram 05/12/2017 - Unremarkable. Mammogram 04/13/2017 - impression: no mammographic evidence of malignancy. 1 year screening mammogram recommended. US kidneys 04/09/2017 - No hydronephrosis.Bilateral peripelvic cysts are again noted. CT of abdomen and pelvis 04/06/2017 - Impression1. 2mm left renal calculus. No ureteral calculi or hydronephrosis2. Bilateral parapelvic cysts3. No evidence for a bowel obstruction CXR - Chest X-ray 03/17/2017 - Pulmonary vascular congestion. Otherwise negative study. - NO active disease in the chest LWR XTR VASC STDY BILAT 03/17/2017 - No DVT within the right or left lower extremity. Ultrasound Biliary 02/08/2017 - Borderline increase in hepatic echogenicity, possibly indicating hepatic steatosisUltrasonographically normal gallbladder and pancreas. no evidence of ductal dilation. Ultrasound 02/08/2017 - No hydronephrosis. Small peripelvic cysts. CXR - Chest X-ray 10/23/2016 - o active disease in the chest CT of chest 10/23/2016 - No evidence of pulmonary embolus in the main, lobar or segmental pulmonary arteriesNo airspace consolidation or pleural effusion Fusion of lumbar spine 2015 Pulmonary venous angiogram 12/08/2015 - No evience of PE Ultrasound 12/08/2015 - 2.5cm mid pole right renal cystMild fatty infiltration of liverOtherwise negative Ultrasound 05/15/2015 - Hepatic steatosis Fusion of joint of lumbar spine with internal fixation by posterior approach 2012 Colonoscopy 06/07/2013 - The entire colon appeared normal. Biopsies were taken with a cold forceps fromthe right and left colon for evaluation of microscopic evaluation, The terminal ileum appears normal. [facility] Upper GI endoscopy 06/07/2013 - Normal esophagusNormal stomachNormal examined duodenum. Biopsy was performed. Colonoscopy 06/07/2013 - The examined portion of the ileum was normalThe entire examined colon is normalInternal hemorrhoidsBiopsies taken with cold forceps from the right colon and left colon for evaluation of microscopiccolitis. Colonoscopy 06/07/2013 - Exaimed portion of the ileum was normal. The Entire examined colon is normal. Internal hemorrhoids. Biopsies were taken with a cold foreceps from the right colon and left colon for evaluation of microscopic colitis. Endoscopy and biopsy of upper gastrointestinal tract 06/07/2013 - Normal esophagus. Normal stomach. normal examined duodenum. Biopsy was preformed. Ultrasound-Abdomen 06/03/2013 - Mild hepatomegaly and fatty metamorphosis. No significant changes since 09/29/11 Endoscopy and biopsy 10/25/2011 Colonoscopy 10/25/2011 - The entire examined colon appeared normal on direct and retroflexion views. Recommendations: Repeat colonoscopy in 10 yrs for screening purposes. Echocardiogram 11/06/2008 Holter monitor 2007 Embolization of uterine artery 2000 Tubal ligation 1997 CARPAL TUNNEL SURGERY 1985 - Right Allergies and Sensitivities: hydrOXYzine(HYPERACTIVE) hydrOXYzine(hyperactive) celecoxib(swelling) levoFLOXacin(RASH) morphine(SOB - Shortness of breath) gabapentin(Blurry Vision) Allergy (Diphenhydramine HCl)(Propensity to adverse reaction) quinolones (fluoroquinolone antibiotics)(rash) traMADol(disoriented) Vistaril(unknown) Vistaril(?) predniSONE(Unknown) predniSONE(?) Pharbedryl(Unknown?) Pharbedryl(?) sulfa drugs(rash) Levaquin(per pt IV) Levaquin(rash) Current Home Meds: (Last Updated 04/19 12:49) acetaminophen (Tylenol 500 mg oral tablet) 1,000 mg PO q8h aspirin (aspirin 325 mg oral capsule) 1 cap PO cefadroxil (Duricef 500 mg oral capsule) 500 mg PO q12h cholecalciferol (Vitamin D3) 1,000 Int_Unit PO Daily diabetes supplies (One Touch Verio Test Strips) use to check blood sugar daily diabetes supplies (One Touch Finepoint (25G) Lancets) home glucose testing larhoO48.9 diabetes supplies (One Touch Verio Glucose Monitor) Use to check blood sugar daily fluorouracil topical (Efudex 5% topical cream) 1 appl topical bid apply to right buttock for actinic keratosis for 4 weeks and then stop levothyroxine (levothyroxine 50 mcg (0.05 mg) oral tablet) TAKE 1 TABLET BY MOUTH 4 DAYS A WEEK AND1 AND 1/2 TABLETS 3 DAYS A WEEK lidocaine topical (lidocaine topical 5% patch) APPY 1 PATCH FOR 12 HOURS TO AFFECTED AREA NEEDEDFOR PAIN. REMOVE PATHCH AFTER 12 HOURS loratadine (Claritin) 10 mg Daily PRN multivitamin (Vitamin B Complex oral capsule) 1 cap PO Daily naloxone (Narcan 4 mg/0.1 mL nasal spray) 4 mg intranasal ONCE may repeat every 2 to 3 minutes until patient responds naproxen (Aleve 220 mg oral tablet) 440 mg PO q12h PRN: as needed for arthritis nitrofurantoin (Macrobid 100 mg oral capsule) 100 mg PO bid omega-3 polyunsaturated fatty acids (Daniella Krill Oil Rosebud-3 oral tablet, chewable) 1 cap Daily 1 Unknown, Unknown oxyCODONE (oxyCODONE 5 mg oral tablet) 5 mg PO q4h PRN: as needed for pain traMADol (traMADol 50 mg oral tablet) 50 mg PO q8h zinc sulfate (Zinc) 1 tab Daily Physical Exam: (relevant to the procedure, including heart and lung evaluation) General: A&O x3 HEENT: Normoceph. Neck: Supple Cardiac: RRR w/o murmur Lungs: Clear Ant. & Post. Abdomen: Soft, nontender Rectal: def. : def. Extremities: Left hip area with no open areas or lesions, Flexion to 70 degrees, internal and external rotation reproduces right hip/groin pain. Left lower ext. neurovascularly intact Neuro: Grossly intact Skin: No open areas noted Studies of Lab Results (relevant to the procedure): _ FINDINGS: Operative changes are present related to recent right primary total hip arthroplasty. Femoral and acetabular components are aligned for normal articulation without hardware complication. There is no evidence of a displaced fracture, or focal osseous abnormality. There has been resolution of the small amount of soft tissue air previously present near the operative site. There is severe osteoarthritis of the left hip. ASSESSMENT: _Left Hp DJD Plan: Scheduled for Left SYLVIA 04/30/[address] Lindquist's service. Aspirin 325 BID post op DVT Prophylaxis x 30 days. RxToGo for d/c medications. Risks and Benefits and All questions answered pertaining to upcoming surgery. Electronic Signature on File Electronically Reviewed/Signed by: Tima Davis PA-C Author Signature Dt/Tm:04/19/2024 01:17 PM Division of Orthopaedics Electronically Reviewed/Signed by: MD Marleni Fairbanksignronda Signature Dt/Tm: 04/19/2024 03:34 PM Division of Orthopaedics [facility] Outpatient Note * ADARSH Davis, Tima Curtis: PERFORM Event Display: .Outpt Note Authored Date: [id number] OUTPATIENT NOTE Name: CHICHI COTTON Patient Number:1 [id number] : 1960 Date of Service: 04/19/2024 Chief complaint: Left hip osteoarthritis History of present illness: Patient presents today for her preoperative history and physical. She is to undergo a left total hip arthroplasty on 04/30/2024 for osteoarthritis of the left hip. Of note, she did have her right hip replaced on 02/13/2024 and continues to do well. She is working with physical therapy and complains of some right groin pain but otherwise is much better than her preoperative pain that she was having. She continues to work on weight loss and again was given risks of postoperative infection, complications from elevated weight. Patient will be taking aspirin 325 mg twice daily postoperatively x 30 days for DVT prophylaxis. A full history and physical was transcribed intoher electronic medical record. Risks benefits and all other questions were answered pertaining to her upcoming surgery. She will be admitted on 04/30/2024 for left total hip arthroplasty under Dr. Hodges service. _ Electronic Signature on File Electronically Reviewed/Signed by: Tima Davis PA-C Author Signature Dt/Tm:04/19/2024 01:11 PM Division of Orthopaedics Electronically Reviewed/Signed by: MD Marleni Fairbanksigner Signature Dt/Tm: 04/19/2024 01:12 PM Division of Orthopaedics [facility] Patient Care team information Care Team Personnel Name: MD Spence Jonathan D Position: Physician - Family Med Member Role: Lifetime Relationship Address: Address: [address] [place] [address] [place] Name: MD Yanes Christopher Position: Physician - Family Med Member Role: Primary Care Provider Address: Address: [address] [place] [address] [place] Name: Torsten Newsome Ann Position: Pharmacist Member Role: Pharmacy - Lifetime Name: Torsten Stevens Brittani Position: Pharmacist Member Role: Pharmacy - Lifetime Care Team Related Persons Name: LINDAISABELLE Address: [place] Address: home [address] [place], [place] [id number] Name: GERMAN COTTON Address: [place] Address: home [address] [place] [id number] Name: CARLITOS COTTON Address: home [address] [place] [id number]
[2024-05-04] MEDS: ASPIRIN 325 MG ECTAB PO SCH (08:10)
[2024-05-04] MEDS: DOCUSATE SODIUM 100 MG CAP PO SCH (08:10)
[2024-05-04] MEDS: cephALEXin 500 MG CAP PO SCH (08:10)
[2024-05-04 08:18] LABS: Hematocrit (blood only) 24.7 % (37.0-47.0); Hemoglobin 7.7 g/dl (12.0-16.0); Mean Corpuscular Hemoglobin 26.7 pg (25.0-34.0); Mean Corpuscular Hgb Conc 31.2 g/dL (32.0-36.0); Mean Corpuscular Volume 85.8 fL (80.0-100.0); Mean Platelet Volume 9.5 fL (9.4-12.4); Platelet Count 238 K/uL (130-400); RDW Coefficient of Variation 14.4 % (11.5-14.5); RDW Standard Deviation 44.6 fL (36.4-46.3); Red Blood Count 2.88 M/uL (4.20-5.40); White Blood Count 5.57 K/ul (4.8-10.8)
[2024-05-04 08:21] LABS: Calcium 8.2 mg/dl (8.6-10.3); Creatinine Clr Calc Pharmacy 136.4 ml/min; Est GFR (African American) 120.2 ml/min; Est GFR (Non-African American) 103.7 ml/min; Potassium 3.8 mmol/L (3.5-5.1)
--- NOTE | 2024-05-04 15:17 | Hospitalist Progress Note ---
Date of Service May 04, 2024 Assessment & Plan (1) Hip pain: Plan #hip pain s/p LHA -Tylenol 1000mg po q8h, Oxycodone 5mg po q4h, Tramadol 50mg po q8h scheduled -Monitor for signs of infection. Keflex 500mg po BID while inpatient -Continue ASA 325mg po BID for DVT prophylaxis -PT/OT evaluation consider inpt rehab #anemia - baseline Hgb wnl; 8.2 on arrival, 7.7 this morning - likely due to blood loss during R LHA in January 2024 - iron supplementation #abnormal chest pain, #tachycardia - HR in 110s o.n. 88 this morning. EKG showed sinus rhythm - CXR showed no acute process. Chest CTA neg for PE; lungs clear - sinus tachy likely 2/2 severe pain & anemia Admission and Anticipated Discharge Date Admission Date: May 03, 2024 Supervising Physician Co-Signing Physician Notes ATTESTATION I also saw the patient and confirmed guardado portions of the history and exam. I agree with the impression and plan in the resident documentation, and as summarized below. Upon our exam around noon, the patient is seated in the bedside chair. She notes that the hip actually feels a little bit better. EXAM 102/64, 94, 16, 36.5, 100 send room air No acute distress Heart regular rhythm, slightly tachycardic Lungs clear, nonlabored respirations DATA Labs Hemoglobin 7.7, WBC 5.57 Sodium 136, BUN 12, creatinine 0.50 I reviewed her [facility] chart with regards to her surgeries and lab work. 02/12/2024 - Hemoglobin = 13.4 02/13/2024 - Right hip total arthroplasty 02/14/2024 - Hemoglobin = 10.9 04/30/2024 - Left total hip arthroplasty 05/01/2024 - Hemoglobin = 9.9 05/02/2024hemoglobin = 8.7 Imaging CTA completed 05/04/2024 shows no evidence of pulmonary embolism. Chest x-ray from 05/04/2024 shows no acute disease. IMPRESSION & PLAN Right hip pain, status post Right total hip arthroplasty, 04/30/2024 at [facility] PT Evaluation She would be interested in inpatient [facility] ([facility]) Anemia, postoperative It looks as if she had initial blood loss from the right hip surgery in January from which she never fully recovered Slight decrease overnight, this may be dilutional Repeat CBC in a.m. Oral iron supplementation Tachycardia CTA negative for pulmonary embolism No signs or symptoms of infection Most likely combination of anemia and pain Check TSH and Free T4 Pain control Monitor Additional per resident documentation Subjective Today, pt reports feeling generally well except for pain in her left groin. She rates the pain as 8/10, constant, and radiating to her back. She says it is improved from yesterday, when she could not walk, take stairs, or get in/out of bed without pain. Today, she has been able to walk around her room and to the bathroom without pain restricting her movements. She also notes aches in her R hip and L knee but says those are longstanding issues and not currently severe. She also is worried that she can feel her heart racing. She denies current chest pain/tightness, difficulty breathing, HICKMAN, abd pain, nausea, or lightheadedness. She reports not having a BM yet, but will wait to see if improvement after getting Colace + miralax. She would like to schedule something with PT. She is open to inpatient rehab and says she has been denied from [facility] in the past, but was approved for [facility]. Review of Systems 2 Review of Systems: Per HPI. Physical Exam 2 Physical Exam: General: NAD, AOx3 CV: Regular rhythm, elevated rate Pulm: CTAB GI: soft, nt/nd +BS MSK: Str 5/5, normal ROM passive and active, no crepitus, warmth, or erythema Skin: L hip incision bandaged, clean, and dry; some bruising on LLE Results & Data Results & Data Vital Signs (Past 12 Hours) Vital Signs Temp Pulse Pulse Pulse Resp BP BP 05/04/24 15:01 36.5 C 94 H 16 102/64 05/04/24 07:29 36.8 C 88 16 100/61 05/03/24 23:00 36.9 C 114 H 18 05/03/24 23:00 36.9 C 114 H 18 05/03/24 21:33 107 H 17 05/03/24 21:31 120/62 05/03/24 21:31 120/62 05/03/24 21:09 05/03/24 21:01 111/67 05/03/24 21:01 111/67 05/03/24 21:01 111/67 05/03/24 21:01 111/67 05/03/24 20:33 05/03/24 20:32 114/77 05/03/24 20:32 114/77 05/03/24 20:32 114/77 05/03/24 20:32 114/77 05/03/24 20:32 114/77 05/03/24 20:30 05/03/24 20:00 05/03/24 20:00 109/85 05/03/24 20:00 109/85 05/03/24 20:00 109/85 05/03/24 19:39 105 H 10 L 05/03/24 19:32 103 H 05/03/24 19:31 123/69 05/03/24 19:31 123/69 05/03/24 18:28 95 H 22 05/03/24 17:40 05/03/24 17:40 112 H 05/03/24 17:40 106 H 16 BP Pulse Ox O2 Del Method 05/04/24 15:01 100 Room Air 05/04/24 07:29 94/51 L 98 Room Air 05/03/24 23:00 105/65 94 Room Air 05/03/24 23:00 105/65 94 Room Air 05/03/24 21:33 100 05/03/24 21:31 05/03/24 21:31 05/03/24 21:09 98 05/03/24 21:01 05/03/24 21:01 05/03/24 21:01 05/03/24 21:01 05/03/24 20:33 100 05/03/24 20:32 05/03/24 20:32 05/03/24 20:32 05/03/24 20:32 05/03/24 20:32 05/03/24 20:30 99 05/03/24 20:00 100 05/03/24 20:00 05/03/24 20:00 05/03/24 20:00 05/03/24 19:39 97 05/03/24 19:32 05/03/24 19:31 05/03/24 19:31 05/03/24 18:28 104/66 100 Room Air 05/03/24 17:40 Room Air 05/03/24 17:40 98 Room Air 05/03/24 17:40 97/66 L 97 Room Air Laboratory Results 05/04/24 07:28 05/04/24 07:28 Upper respiratory panel negative Diagnostic Findings Electrocardiogram 05/03/24 Sinus tachycardia Possible Left atrial enlargement Nonspecific ST abnormality Abnormal ECG When compared with ECG of 25-DEC-2023 11:11, Vent. rate has increased BY 38 BPM Confirmed by Goyo Devi ([id number]) on 05/03/2024 5:04:52 PM Chest CTA 05/03/24 15:19 CT ANGIOGRAM OF THE CHEST CLINICAL HISTORY: Atypical chest pain. Reported history of recent surgery. COMPARISON STUDY: Chest x-ray dated 05/03/2024. Chest CT dated 07/03/2022. TECHNIQUE: Following the IV administration of 118 cc of Optiray 320, CT angiogram of the chest was performed from the upper abdomen to the thoracic inlet utilizing the pulmonary embolus protocol. Images are reviewed in the axial, sagittal, and coronal planes. 3-D MIPS images are created and assessed. IV contrast was administered without complication. A dose lowering technique was utilized adhering to the principles of ALARA. CT DOSE: 781.84 mGy.cm FINDINGS: Thyroid: Imaged portions of the thyroid gland are normal in size and attenuation. Thoracic aorta: The thoracic aorta is normal in caliber and demonstrates standard 3-vessel arch anatomy. No dissection is seen. Pulmonary vasculature: The pulmonary trunk is normal in caliber. There are no filling defects identified in main, lobar, or segmental pulmonary branches to suggest pulmonary embolus. Heart: The heart is top normal in size and without pericardial effusion. Lungs and pleural spaces: Evaluation of the lung parenchyma is degraded by motion artifact. No airspace consolidation or pleural effusion is identified. The trachea and central airways are clear. Mediastinum: There is no mediastinal lymphadenopathy. Kati: Clear. Axillae: There is no axillary lymphadenopathy. Upper abdomen: Partially visualized upper abdominal viscera is within normal limits. Skeletal structures: The skeletal structures are heterogeneously osteopenic. Again the changes noted in the thoracic spine. Fusion hardware is seen in the lower cervical spine. No lytic or blastic bony lesions are seen. IMPRESSION: 1. There is no evidence of pulmonary embolus in the main, lobar, or segmental pulmonary arteries. 2. The lungs are clear. ACT 112: Negative or not required by law. Electronically signed by: Bulmaro Fraga M.D. 05/03/2024 6:29 PM Chest X-Ray 05/03/24 15:20 XR chest 1V not portable HISTORY: Shortness of breath. COMPARISON: Chest 12/25/2023. FINDINGS: No pneumothorax. No pleural effusions. The lungs are clear. The heart is normal in size. Cervical and lumbar spinal fusion hardware again noted. IMPRESSION: No acute process. ACT 112: Negative or not required by law. Electronically signed by: Ernst Arredondo M.D. 05/03/2024 4:35 PM Resident Activity Tracking Resident Involvement: Resident Care Provided Care Provided: Adult Hospital Medicine
[2024-05-04] MEDS: HYDROmorphone INJ 0.5 MG/0.5 ML SYR IV STA (20:13)
[2024-05-05 07:51] LABS: Basophils # (auto) 0.03 K/uL (0.00-0.20); Basophils % (auto) 0.5 %; Eosinophils # (auto) 0.45 K/uL (0.00-0.50); Eosinophils % (auto) 8.2 %; Hematocrit (blood only) 24.2 % (37.0-47.0); Hemoglobin 7.7 g/dl (12.0-16.0); Immature Granulocytes # (auto) 0.07 K/uL (0.01-0.20); Immature Granulocytes % (auto) 1.3 %; Lymphocytes # (auto) 1.12 K/uL (1.20-3.40); Lymphocytes % (auto) 20.4 %; Mean Corpuscular Hemoglobin 27.1 pg (25.0-34.0); Mean Corpuscular Hgb Conc 31.8 g/dL (32.0-36.0); Mean Corpuscular Volume 85.2 fL (80.0-100.0); Monocytes # (auto) 0.45 K/uL (0.11-0.59); Monocytes % (auto) 8.2 %; Neutrophils # (auto) 3.37 K/uL (1.40-6.50); Neutrophils % (auto) 61.4 %; Platelet Count 256 K/uL (130-400); RDW Coefficient of Variation 14.4 % (11.5-14.5); Red Blood Count 2.84 M/uL (4.20-5.40); White Blood Count 5.49 K/ul (4.8-10.8)
[2024-05-05 08:06] LABS: BUN Creatinine Ratio 19.2 (10-20); Calcium 8.2 mg/dl (8.6-10.3); Creatinine Clr Calc Pharmacy 131.1 ml/min; Est GFR (African American) 118.7 ml/min; Est GFR (Non-African American) 102.4 ml/min; Potassium 3.9 mmol/L (3.5-5.1)
[2024-05-05 08:22] LABS: Thyroid Stimulating Hormone 6.461 uIu/ml (0.300-4.500)
[2024-05-05 08:24] LABS: T4 Free Thyroxine 0.94 ng/dl (0.61-1.60)
[2024-05-05] MEDS: FERROUS SULFATE 325 MG TAB PO SCH (08:45)
[2024-05-05 09:03] LABS: RBC Morphology Unremarkable
--- NOTE | 2024-05-05 10:39 | Hospitalist Progress Note ---
Date of Service May 05, 2024 Assessment & Plan (1) Hip pain: Plan #hip pain s/p LHA -Tylenol 1000mg po q8h, Oxycodone 5mg po q4h, Tramadol 50mg po q8h scheduled -Monitor for signs of infection. Keflex 500mg po BID while inpatient -Continue ASA 325mg po BID for DVT prophylaxis -PT/OT evaluation consider inpt rehab #anemia - baseline Hgb wnl; 8.2 on arrival, 7.7 yesterday and this morning - likely due to blood loss during R LHA in January 2024 - iron supplementation #abnormal chest pain, #tachycardia - HR in 110s on arrival. Now ~90s. EKG showed sinus rhythm - CXR showed no acute process. Chest CTA neg for PE; lungs clear - sinus tachy likely 2/2 severe pain & anemia Admission and Anticipated Discharge Date Admission Date: May 03, 2024 Supervising Physician Co-Signing Physician Notes ATTESTATION I also saw the patient and confirmed guardado portions of the history and exam. I agree with the impression and plan in the resident documentation, and as summarized below. At the time of exam, she is seen in the bedside chair without complaints. She did have one episode of more significant hip pain overnight. EXAM 110/68, 94, 18, 36.8, 97% room air No acute distress Heart regular rhythm, slightly tachycardic Lungs clear, nonlabored respirations DATA Labs Hemoglobin 7.7 Sodium 135, BUN 10, creatinine 0.52 TSH 6.461, free T4 0.94 Historical hemoglobin results: 02/12/2024 - Hemoglobin = 13.4 02/13/2024 - Right hip total arthroplasty 02/14/2024 - Hemoglobin = 10.9 04/30/2024 - Left total hip arthroplasty 05/01/2024 - Hemoglobin = 9.9 05/02/2024hemoglobin = 8.7 Imaging CTA completed 05/04/2024 shows no evidence of pulmonary embolism. Chest x-ray from 05/04/2024 shows no acute disease. IMPRESSION & PLAN Right hip pain, status post Right total hip arthroplasty, 04/30/2024 at [facility] PT Evaluation recommends inpatient rehab She would be interested in inpatient rehab ([facility]) Anemia, postoperative It looks as if she had initial blood loss from the right hip surgery in January from which she never fully recovered Stable Monitor Oral iron supplementation Tachycardia CTA negative for pulmonary embolism No signs or symptoms of infection Most likely combination of anemia and pain Thyroid studies as noted Pain control Trending improvement, but will continue to monitor Additional per resident documentation Subjective Pt feels well this morning but reports an episode of severe pain last night. She had been walking around her room, to the bathroom, and to the ice machine right across the song throughout the day without much pain, but one trip ~8pm suddenly caused pain she rates as 10+. The pain improved after medication (IV hydromorphone) but was still about 7/10. Otherwise, she reports her heart racing much less than yesterday and denies dizziness, lightheadedness, chest pain, SOB, abd pain. She complains of continued constipation and requests something stronger than the colace and miralax she's been getting. Her anemia and the goal of inpatient rehab were discussed. Review of Systems 2 Review of Systems: Per HPI Physical Exam 2 Physical Exam: General: NAD, AOx3 CV: Regular rhythm, elevated rate but less notable than yesterday Pulm: CTAB GI: soft, nt/nd +BS MSK: full ROM, no tenderness to palpation, warmth, or erythema Skin: L hip incision bandaged, clean, and dry; still bruising on LLE Results & Data Results & Data Vital Signs (Past 12 Hours) Vital Signs Temp Pulse Pulse Resp BP BP Pulse Ox 05/05/24 10:11 94 H 110/68 05/05/24 07:35 36.8 C 93 H 18 95/48 L 97 O2 Del Method 05/05/24 10:11 05/05/24 07:35 Room Air Laboratory Results 05/05/24 07:14 05/05/24 07:14 Resident Activity Tracking Resident Involvement: Resident Care Provided Care Provided: Adult Hospital Medicine
[2024-05-05] MEDS: bisacodyL 10 MG SUPP PR STA ×2 (18:47→20:45)
[2024-05-05] MEDS: POLYETHYLENE (MIRALAX) 17 GM PACK PO SCH (20:51)
[2024-05-06] MEDS: LEVOTHYROXINE SODIUM 75 MCG TABLET PO SCH (06:13)
[2024-05-06 07:32] LABS: Basophils # (auto) 0.01 K/uL (0.00-0.20); Basophils % (auto) 0.2 %; Eosinophils # (auto) 0.52 K/uL (0.00-0.50); Eosinophils % (auto) 10.7 %; Hematocrit (blood only) 22.7 % (37.0-47.0); Hemoglobin 7.3 g/dl (12.0-16.0); Immature Granulocytes # (auto) 0.09 K/uL (0.01-0.20); Immature Granulocytes % (auto) 1.9 %; Lymphocytes # (auto) 1.34 K/uL (1.20-3.40); Lymphocytes % (auto) 27.6 %; Mean Corpuscular Hgb Conc 32.2 g/dL (32.0-36.0); Mean Corpuscular Volume 84.1 fL (80.0-100.0); Monocytes # (auto) 0.44 K/uL (0.11-0.59); Monocytes % (auto) 9.1 %; Neutrophils # (auto) 2.46 K/uL (1.40-6.50); Neutrophils % (auto) 50.5 %; Nucleated RBC # (auto) 0.02 K/uL (0.00-0.12); Nucleated RBC % (auto) 0.4 %; Platelet Count 265 K/uL (130-400); RDW Coefficient of Variation 14.4 % (11.5-14.5); RDW Standard Deviation 43.8 fL (36.4-46.3); White Blood Count 4.86 K/ul (4.8-10.8)
[2024-05-06 07:55] LABS: Polychromasia 1+
--- NOTE | 2024-05-06 08:11 | Discharge Summary ---
Date of Service May 07, 2024 Admission HPI Per Admitting Provider Beryl Villanueva is a 63yo female s/p left SYLVIA performed on 04/30/24 at [facility] presenting with increased pain in the left hip as well as elevated heart rate, chest tightness and shortness of breath. She [place] [facility] [place] was instructed to come to the ER to assess for possible PE. Patient reports that the surgery went well. She was discharged home yesterday 05/02/24. She has home PT scheduled to start in a couple of weeks. She has been taking Oxycodone 5mg po q6 hours and Tramadol 50mg po q 8 hours for pain control at home as well as Tylenol and ASA 325mg po BID. Since being home she has not been doing well. She has had severe pain in her hip. She was able to climb up the stairs to bed last night but had much difficulty coming down the stairs today. She has been able to ambulate to the bathroom today but with significant pain and difficulty. She also noted today that her heart rate was elevated. In the ER she is afebrile, elevated HR 95-112 bpm. BP has been stable. ER Course: Oxycodone 5mg po x 2 doses NSS x 1L Fentanyl 50mcg IV Cephalexin 500mg x 1 Tylenol 1gm IV x 1 Tramadol 50mg x 1 Principal Diagnosis Hip pain 2/2 SYLVIA Discharge Exam General: NAD, AOx3 CV: Regular rhythm, elevated rate but less notable than yesterday Pulm: CTAB GI: soft, nt/nd +BS MSK: full ROM, no tenderness to palpation, warmth, or erythema Skin: L hip incision bandaged, clean, and dry; some surrounding/distal bruising Discharge Data Allergies Allergy/AdvReac Type Severity Reaction Status Date / Time morphine Allergy Severe SHORT OF Verified 05/03/24 18:28 BREATH celecoxib [From Celebrex] Allergy Intermediate swelling Verified 05/03/24 18:28 gabapentin Allergy Intermediate Blurry Verified 05/03/24 18:28 Vision Sulfa (Sulfonamide Allergy Intermediate Rash Verified 05/03/24 18:28 Antibiotics) levofloxacin Allergy Mild RASH WITH Verified 05/03/24 18:28 IV MEDICATION Quinolones Allergy Mild Rash Verified 05/03/24 18:28 wheat Allergy Mild GI Verified 05/03/24 18:28 SENSITIVITY diphenhydramine AdvReac Intermediate "KEEPS ME Verified 05/03/24 18:28 AWAKE INSTEAD OF MAKING ME SLEEPY" hydroxyzine AdvReac Intermediate HYPERACTIVE Verified 05/03/24 18:28 prednisone AdvReac Intermediate PSYCHOTIC Verified 05/03/24 18:28 COMPLICATIONS tramadol AdvReac Intermediate "OUT OF Verified 05/03/24 18:28 BODY"/DISORIENTED Consultations 05/03/24 20:34 ED Decision to Admit Stat Ordered Studies 05/03/24 15:19 CT angio chest PE protocol Stat Hospital Course (1) Hip pain: Plan #hip pain s/p LHA -Tylenol 1000mg po q8h, Oxycodone 5mg po q4h, Tramadol 50mg po q8h scheduled -Monitor for signs of infection. Keflex 500mg po BID while inpatient -Continue ASA 325mg po BID for DVT prophylaxis -PT/OT evaluation for rehab today #anemia - baseline Hgb wnl; 8.2 on arrival, 7.3 this morning. no sx, a/w tachycardia - likely due to blood loss during R LHA in January 2024 - Iron, transferring, ferritin wnl; TIBC decreased to 227; B12 pending - iron supplementation #abnormal chest pain, #tachycardia - HR in 110s on arrival. Now ~90s. EKG showed sinus rhythm - CXR showed no acute process. Chest CTA neg for PE; lungs clear - sinus tachy likely 2/2 severe pain & anemia Total Time Total Time Spent Total Time Spent (In Minutes): <30 Discharge Plan Discharge Items Patient Disposition: Transfer Group Home Fac Reason For Visit: LEFT HIP PAIN, TACHYCARDIA Discharge Diagnosis: Left hip pain Activity: Per Instructions section Non-emergency contact: Primary Care Provider Call non-emergency contact if: you have any medication questions, your pain is unusual for you and your temperature is above 101.5 Follow-up/Referrals: Goyo Yanes MD [Primary Care Provider] - Diet: Gluten Free Addtl Attending Provider Instructions: You were admitted to the hospital for pain after left hip surgery and elevated heart rate (tachycardia). You were given pain medications and seen by PT/OT. Tylenol 1000mg by mouth every 8h Oxycodone 5mg by mouth every 4h Tramadol 50mg by mouth every 8h scheduled We decided the best next step for you is intensive PT at an inpatient rehab facility. You were also found to have anemia, with your last normal Hgb levels being prior to your right hip surgery in January. As discussed, this is likely due to your body not fully healing after the surgery, along with another surgery, the associated pain, etc. As long as your Hgb stays > 7 and you have no symptoms, a transfusion is not necessary. Baseline hgb ~12.5. Has been stably 7.3-8.2 during hospitalization No evidence of any active bleeding Iron studies and vitamin B12 levels normal Should check CBCs regularly for any changes On iron supplementation Your medication list has been reviewed and reconciled upon discharge to ensure accuracy and continuity of care. An updated list of all your medications is included with your hospital discharge paperwork. Please review this list closely, and make note of any changes. Take your medications as instructed; do not skip a dose. Make sure all of your doctors know every medicine you are taking (including [id number] medicines, vitamins, and supplements). Call your PCP before taking any new medicines because some of these may interact with your current medications, or may make your symptoms worse. Thank you for allowing us to participate in your care. Pending Studies at Discharge: No Stand-Alone Forms: My [facility] Skilled Items Patient informed of condition?: Yes DNR: No Discharge Level of Care: Acute rehab Communicable Disease: No Discharge Prognosis: Improving Lines: None Urinary Catheter: No Medications and DC Order Prescriptions: New polyethylene glycol 3350 [Miralax] 17 gram Powder In Packet 17 g PO BID 30 Days Qty: 30 0RF docusate sodium 100 mg Capsule 100 mg PO BID 30 Days Qty: 60 0RF ferrous sulfate 325 mg (65 mg iron) Tablet,Delayed Release (Dr/Ec) 325 mg PO QAM 30 Days Qty: 30 0RF Continued cholecalciferol (vitamin D3) [Vitamin D3] 25 mcg (1,000 unit) capsule 1,000 units PO QAM vitamin B complex Capsule 1 cap PO QAM acetaminophen 500 mg Tablet 1,000 mg PO Q8H PRN (Reason: Pain) [id number] [krill oil] [id number] mg Capsule 1 cap PO DAILY levothyroxine 50 mcg tablet 50 mcg PO UD Rx Instructions: TAKE ONE TABLET BY MOUTH 4 DAYS A WEEK AND ONE AND ONE-HALF TABLETS 3 DAYS A WEEK aspirin 325 mg Tablet 325 mg PO BID tramadol 50 mg tablet 50 mg PO Q8H PRN (Reason: Pain) cefadroxil 500 mg capsule 500 mg PO BID Rx Instructions: STARTED 05/03/24 FOR 14 DAYS loratadine [Claritin] 10 mg Tablet 10 mg PO DAILY PRN (Reason: Congestion) zinc sulfate 50 mg zinc (220 mg) Capsule 50 mg PO DAILY oxycodone 5 mg tablet 5 mg PO Q4H PRN (Reason: moderate-severe pain) Discharge Orders: Discharge Order (Routine); Ordered 05/07/24 Ordered By: Haydee Aggarwal Admission Data Admit Date/Time: 05/05/24 13:59 Attending Provider: Reji Ramey Admit Provider: Beryl Murphy Primary Care Provider: Goyo Yanes Other Providers: Beryl Murphy; [facility]; [facility]; [facility] Other Interventions: Discharge Summary Assessment (RN) Last Done: 05/07/24 14:33 Supervising Physician Co-Signing Physician Notes I personally examined the patient and verified all guardado points of history and exam, discussed case, and agree with decision making with Dr Aggarwal hip pain persists but doing better, for rehab today Vitals noted, in general she is awake and alert pleasant no distress. HEENT normocephalic atraumatic mucous membranes moist. Breathing unlabored no accessory muscle use good effort. Skin shows no rashes, pallor or icterusleft hip wound is dressed appears to be clean dry and intact no tracking erythema, what appears to be an appropriate/expected amount of bruising IMPRESSION & PLAN Right hip pain, status post Right total hip arthroplasty, 04/30/2024 at [facility] PT Evaluation recommends inpatient rehab stable for rehab/SNF with rehab emphasis once approved/bed available Anemia, postoperative either acute blood loss from recent hip surgery or subacute/accumulated blood loss from multiple hip surgeries in January and now (per review by my colleagues have access to [place] records subacute/accumulated over 2 surgeries without full recovery appears to be more likely)iron levels respectable, B12 borderline (started oral supplementation)follow. Fortunately no clear indications for transfusion. Continue to follow periodically (probably CBC ~1x/wk at rehab and/or sooner if needed for dyspnea/lightheadedness/tachycardia) Tachycardia CTA negative for pulmonary embolism No signs or symptoms of infection Most likely combination of anemia and pain Thyroid studies as noted Pain control overall improving DVT proph - asa BID per ortho otherwise as above Resident Activity Tracking Resident Involvement: Resident Care Provided Care Provided: Adult Hospital Medicine
[2024-05-06 12:10] LABS: Ferritin 86.5 ng/ml (8-388)
--- NOTE | 2024-05-06 14:29 | Hospitalist Progress Note ---
Date of Service May 06, 2024 Assessment & Plan (1) Hip pain: Plan #hip pain s/p LHA -Tylenol 1000mg po q8h, Oxycodone 5mg po q4h, Tramadol 50mg po q8h scheduled -Monitor for signs of infection. Keflex 500mg po BID while inpatient -Continue ASA 325mg po BID for DVT prophylaxis -PT/OT recc'd inpt rehab, considering [facility] #anemia - baseline Hgb wnl; 8.2 on arrival, 7.3 this morning. no sx, a/w tachycardia - likely due to blood loss during R LHA in January 2024 - Vit B12, iron, transferring, ferritin wnl; TIBC decreased at 227 - Pt on iron supplementation #abnormal chest pain, #tachycardia - HR in 110s on arrival. Now ~90s. EKG showed sinus rhythm - CXR showed no acute process. Chest CTA neg for PE; lungs clear - sinus tachy likely 2/2 severe pain & anemia Admission and Anticipated Discharge Date Admission Date: May 05, 2024 Supervising Physician Co-Signing Physician Notes I personally examined the patient and verified all guardado points of history and exam, discussed case, and agree with decision making with Dr Aggarwal hip pain persists. Willing to go to rehabjust waiting on insurance approval/bed. Pain not really worse. No notable extensive or growing bruising, no melena or hematochezia. Just had a colonoscopy about a year ago. Vitals noted, in general she is awake and alert pleasant no distress. HEENT normocephalic atraumatic mucous membranes moist. Breathing unlabored no accessory muscle use good effort. Skin shows no rashes, pallor or icterusleft hip wound is dressed appears to be clean dry and intact no tracking erythema, what appears to be an appropriate/expected amount of bruising IMPRESSION & PLAN Right hip pain, status post Right total hip arthroplasty, 04/30/2024 at [facility] PT Evaluation recommends inpatient rehab stable for rehab/SNF with rehab emphasis once approved/bed available Anemia, postoperative either acute blood loss from recent hip surgery or subacute/accumulated blood loss from multiple hip surgeries in January and now (per review by my colleagues have access to [place] records subacute/accumulated over 2 surgeries without full recovery appears to be more likely)iron levels respectable, B12 borderline (start oral supplementation)follow. Fortunately no clear indications for transfusion. Continue to follow periodically Tachycardia CTA negative for pulmonary embolism No signs or symptoms of infection Most likely combination of anemia and pain Thyroid studies as noted Pain control fortunately no clear indications for transfusion at this time. DVT proph - asa BID per ortho otherwise as above Subjective Pt feels well today, reports no pain flares. Denies n/v, HICKMAN, palpitations, SOB. Says constipation improving, Reports mild lightheadedness going from sitting to standing. Pt's was present in room. Possible causes of anemia were discussed, as pt is concerned about Hgb. Discussed [facility] for discharge plan. Review of Systems 2 Review of Systems: Per HPI Physical Exam 2 Physical Exam: General: NAD, AOx3 CV: Regular rhythm, elevated rate, no m/r/g Pulm: CTAB GI: soft, nt/nd +BS MSK: full ROM, no tenderness to palpation, warmth, or erythema Skin: L hip incision bandaged, clean, and dry; some surrounding/distal bruising Results & Data Results & Data Vital Signs (Past 12 Hours) Vital Signs Temp Pulse Pulse Resp BP BP Pulse Ox 05/06/24 12:58 37.1 C 100 H 16 119/74 95 05/06/24 10:03 101/70 05/06/24 07:39 36.8 C 85 18 98/57 L 90 05/06/24 07:10 36.8 C 85 16 91/52 L 94 O2 Del Method 05/06/24 12:58 Room Air 05/06/24 10:03 05/06/24 07:39 Room Air 05/06/24 07:10 Room Air Laboratory Results 05/06/24 07:04 05/05/24 07:14 Iron 35 (35-150) mcg/dl TIBC 227 L (250-450) mcg/dl Unsaturated IBC 192 (155-355) mcg/dl Transferrin % Sat 15 (15-50) % Pam Transferrin Receptr Pending Ferritin 86.5 (8-388) ng/ml Vitamin B12 284 (180-914) pg/ml Resident Activity Tracking Resident Involvement: Resident Care Provided Care Provided: Adult Hospital Medicine
--- NOTE | 2024-05-06 17:55 | Billing Data ---
Date of Service May 06, 2024 Coding Level of Care Code 96332 SUB INP/OBS CARE 3MIN
[2024-05-06 19:40] VITALS: RESP 18
[2024-05-07 07:56] LABS: Basophils # (auto) 0.02 K/uL (0.00-0.20); Basophils % (auto) 0.4 %; Eosinophils # (auto) 0.44 K/uL (0.00-0.50); Eosinophils % (auto) 8.7 %; Hematocrit (blood only) 24.9 % (37.0-47.0); Hemoglobin 7.7 g/dl (12.0-16.0); Immature Granulocytes # (auto) 0.09 K/uL (0.01-0.20); Immature Granulocytes % (auto) 1.8 %; Lymphocytes % (auto) 29.5 %; Mean Corpuscular Hemoglobin 26.6 pg (25.0-34.0); Mean Corpuscular Hgb Conc 30.9 g/dL (32.0-36.0); Mean Corpuscular Volume 85.9 fL (80.0-100.0); Mean Platelet Volume 8.8 fL (9.4-12.4); Monocytes % (auto) 7.9 %; Neutrophils # (auto) 2.63 K/uL (1.40-6.50); Neutrophils % (auto) 51.7 %; Platelet Count 306 K/uL (130-400); RDW Coefficient of Variation 14.6 % (11.5-14.5); White Blood Count 5.08 K/ul (4.8-10.8)
[2024-05-07 08:09] LABS: BUN Creatinine Ratio 20.3 (10-20); Calcium 8.9 mg/dl (8.6-10.3); Creatinine Clr Calc Pharmacy 115.6 ml/min; Est GFR (African American) 113.9 ml/min; Est GFR (Non-African American) 98.2 ml/min; Potassium 4.2 mmol/L (3.5-5.1)
[2024-05-07] MEDS: CYANOCOBALAMIN (B-12) 500 MCG TABLET PO SCH (08:15)
[2024-05-07 08:16] LABS: Hypochromasia Present
[2024-05-07 15:20] VITALS: BP 100/60; PULSE 90; TEMP 98.2; O2SAT 98
== END 2024-05-07 15:22 | DRG 948 ==
LOC: 3W 14:52 → ED 14:52 → SUATTDRO 20:52 → 3W 21:30 → SUATTDRO 05-05 13:59

== ENCOUNTER 2024-06-05 12:42 | Observation (INO) ==
--- NOTE | 2024-06-05 13:07 | Emergency Department Note ---
Impression & Plan LUE weakness, Arm paresthesia, left, Chest pain ED Provider Note ED Provider Note NAME: CHICHI COTTON AGE:63 SEX: Female : 1960 ARRIVES VIA: Private vehicle INFORMANT: Patient ED PROVIDER(s): Sneha Rojas DO CHIEF COMPLAINT: Referred by PCP HPI: This is a 63-year-old female who presents to the emergency department after being referred here by her PCP who she went to see this morning due to concern for left upper extremity weakness, paresthesias, and dysarthria which began yesterday morning. Patient states she feels her dysarthria is improved. She denies any prior similar episodes. She states paresthesias are only in the left hand/fingers. She states 4 weeks ago she underwent a left hip replacement and is still rehabbing from this so it is difficult for her to tell if her left lower extremity is involved. She states she has been going to PT and making progress. She states she was taking aspirin daily per recommendation from Ortho up until the end of last week when she stopped after being on aspirin for a month. Patient states she does have a prior history of neck problems and did have prior C-spine surgery with Dr. Quezada. She states when she had issues with her cervical spine her issues were on the right. She denies fevers, chills, recent URI symptoms. No other recent trauma or change in activity. Patient states she felt she had difficulty getting her words out yesterday and even this morning initially however feels that is since improved. No overt headaches or vision changes. She denies dizziness or lightheadedness. PAST MEDICAL HISTORY:See Below PAST SURGICAL HISTORY:See Below FAMILY HISTORY:See Below SOCIAL HISTORY:See Below HOME MEDICATIONS:See Below ALLERGIES:See Below VITALS:See Below PHYSICAL EXAMINATION: GENERAL: alert, well appearing, well nourished, no distress, non-toxic EYE EXAM: normal conjunctiva, PERRL and EOM's grossly intact OROPHARYNX: no exudate, no erythema, lips, buccal mucosa, and tongue normal and mucous membranes are moist NECK: supple, no nuchal rigidity, no adenopathy, non-tender LUNGS: Clear to auscultation. Normal chest wall mechanics, no w/r/r HEART: no murmurs, S1 normal and S2 normal ABDOMEN: abdomen soft, non-tender, normo-active bowel sounds, no masses, no rebound or guarding. BACK: Back is symmetrical on inspection and there is no deformity, no midline tenderness, no CVA tenderness. SKIN: no rashes, petechiae, orbruising UPPER EXTREMITIES: upper extremities are grossly normal. FROM, nml pulses b/l. LOWER EXTREMITIES: No pitting edema. FROM, nml pulses b/l. NEURO EXAM: Normal sensorium, cranial nerves II-XII grossly intact, normal speech, no facial droop,nogross weakness of arms, no gross weakness of legs. Gross sensation intact. No ataxia. Negative pronator drift, normal [id number], cannot perform [id number] due to recent surgery to left lower extremity. NIHSS 0 Vital Signs: reviewed and remarkable Differential Diagnosis: ischemic Stroke, hemorrhagic stroke, bells palsy, mass, neoplasm, migraine headache, seizure, subarachnoid hemorrhage, TIA, and transient global amnesia. MEDICAL DECISION MAKING: This is a 63-year-old female presents emergency department due to concern for left upper extremity weakness, paresthesias, and transient dysarthria. Patient with recent left hip surgery and so unclear if left lower extremity was involved. Patient afebrile vital signs stable. Labs drawn and sent, IV established, EKG and chest x-ray performed at bedside interpreted me and patient monitored on telemetry. Patient started on gentle IV fluids, and sent for CT/CTA additionally. Patient outside the window for TNK as symptoms began yesterday morning. Patient was noted to have anemia. While awaiting CT results she then complained of chest pain. Repeat troponin added and repeat EKG performed, these were reassuring. Patient reported resolution of her dysarthria on arrival, she had no recurrence of her dysarthria. She continued to complain of left upper extremity weakness and intermittent paresthesias. No obvious facial droop or vision changes. Patient was given IV Tylenol for her pain with some improvement. Due to concern for risk factors for TIA/CVA, and unclear etiology of her symptoms, case discussed with the hospitalist team for additional evaluation and management. Consultation(s): 1644: Discussed with Dr. Higuera, [place] hospitalist, for additional evaluation and mgmt. ER Treatment Provided: See below Diagnostics Interpreted By Me: -ECG: Normal sinus at 83, normal axis, normal intervals, no acute ST/T wave changes. EKG #2: Normal sinus at 79, normal axis, normal intervals, no acute ST/T wave changes -Cardiac Monitoring: An order was placed for continuous cardiac monitoring. The monitor shows a rate of 80 with normal sinus rhythm. -Laboratory studies: As stated above and show below. -Imaging studies: ct head: no ich X-ray Chest: A single view study of the chest was reviewed and was negative for cardiomegaly, focal infiltrate, effusion, pulmonary edema, or wide mediastinum. Triage Nursing Note Reviewed Prior/Outside Records Reviewed Past Med/Surg History Problem List (Updated 06/07/24 @ 04:04 by Sneha Rojas DO) Chest pain (Acute) Pain of left calf Arm paresthesia, left (Acute) LUE weakness (Acute) Hip pain Ambulatory dysfunction (Acute) Sinus tachycardia (Acute) Spinal stenosis of lumbar region Intractable back pain (Acute) Osteoarthritis of right hip (Acute) Lumbar back pain with radiculopathy affecting right lower extremity (Acute) Right leg pain Lipedema Fatty infiltration of liver Dyslipidemia Prediabetes Osteoarthritis of right hip Sacroiliac joint pain Postlaminectomy syndrome of lumbosacral region Right leg weakness Migraine (Chronic) Morbid obesity (Chronic) Neurogenic claudication due to lumbar spinal stenosis Metabolic syndrome Pulmonary embolism Sensorineural hearing loss (SNHL) of both ears 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 SINGLE FLARE 2013. Anxiety Hypothyroidism Surgical History Hx of arthroscopy of left knee Hx of spinal surgery History of right knee joint replacement H/O bilateral salpingo-oophorectomy History of carpal tunnel release RT/LEFT History of bilateral tubal ligation [place] teeth removed History of myringotomy History of esophagogastroduodenoscopy (EGD) History of breast biopsy R BREAST-BENIGN History of section X4 History of colonoscopy History of appendectomy History of bronchoscopy TO DX SARCODOSIS 2012 S/P lumbar spinal fusion S/P cervical spinal fusion GOOD ROM S/P partial hysterectomy Family History Brother Diabetes Colorectal cancer Mother Diabetes Stomach cancer Sarcoidosis Lymphoma Father Coronary heart disease Other Cancer Heart disease Hypertension No family history of adverse response to anesthesia No family history of bleeding disorder Social History Smoking Status: Never smoker Second Hand Exposure: No; Do You Dip or Chew Tobacco: No; Hx Alcohol Use: No Hx Substance Use: No Preferred Language: British Communication Ability: Effective Visual Impairment: No Limitations 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 Other Information That Helps Us Care for You: No Feels Safe at Home: Yes Safety Concerns: Feels Safe At This Time Assistive Devices: Cane, Walker, Wheelchair and Other Assistive Devices Comment: Rollator for distances. Allergies Allergies Allergy/AdvReac Type Severity Reaction Status Date / Time morphine Allergy Severe SHORT OF Verified 05/03/24 18:28 BREATH celecoxib [From Celebrex] Allergy Intermediate swelling Verified 05/03/24 18:28 gabapentin Allergy Intermediate Blurry Verified 05/03/24 18:28 Vision Sulfa (Sulfonamide Allergy Intermediate Rash Verified 05/03/24 18:28 Antibiotics) levofloxacin Allergy Mild RASH WITH Verified 05/03/24 18:28 IV MEDICATION Quinolones Allergy Mild Rash Verified 05/03/24 18:28 wheat Allergy Mild GI Verified 05/03/24 18:28 SENSITIVITY diphenhydramine AdvReac Intermediate "KEEPS ME Verified 05/03/24 18:28 AWAKE INSTEAD OF MAKING ME SLEEPY" hydroxyzine AdvReac Intermediate HYPERACTIVE Verified 05/03/24 18:28 prednisone AdvReac Intermediate PSYCHOTIC Verified 05/03/24 18:28 COMPLICATIONS tramadol AdvReac Mild "OUT OF Verified 06/05/24 18:49 BODY"/DISORIENTED Home Meds Home Medications Medication Instructions Recorded Confirmed vitamin B complex 1 cap PO QAM 07/17/18 06/05/24 cholecalciferol (vitamin D3) 25 1,000 units PO QAM 06/01/20 06/05/24 mcg (1,000 unit) capsule (Vitamin D3) acetaminophen 500 mg tablet 1,000 mg PO Q8H PRN Pain 04/24/23 06/05/24 krill 1,000 mg-omega-3 170 mg-dha 1 cap PO DAILY 10/06/23 06/05/24 50 mg-epa 80 [id number] capsule (krill oil) levothyroxine 50 mcg tablet 50 mcg PO UD 12/25/23 06/05/24 loratadine 10 mg tablet (Claritin) 10 mg PO DAILY PRN Congestion 05/03/24 06/05/24 tramadol 50 mg tablet 50 mg PO Q8H PRN Pain 05/03/24 06/05/24 zinc sulfate 50 mg zinc (220 mg) 50 mg PO DAILY 05/03/24 06/05/24 capsule clonazepam 1 tab PO DIRECTED PRN Other 06/05/24 06/05/24 Previous Rx's Medication Instructions Recorded ferrous sulfate 325 mg (65 mg 325 mg PO QAM 30 days #30 tabs 05/07/24 iron) tablet,delayed release Results & Data (ED) Vital Signs Vital Signs - 24 hr 06/05/24 12:44 06/05/24 13:37 Temperature 36.7 C Temperature Source Temporal Artery Scan Pulse Rate 91 H 84 Respiratory Rate 18 Respiratory Effort / Characteristics Non-Labored Spontaneous Respiratory Depth Normal Blood Pressure 185/105 H Blood Pressure Mean 131 Blood Pressure Position Sitting Pulse Oximetry 98 Oxygen Delivery Method Room Air Sepsis Recent Fever Within 48 Hours No Sepsis New/Unexplained Change in Mental Status No Sepsis Action Taken by Nursing No Action Required Laboratory Data 06/06/24 07:22 06/06/24 07:22 Lab Results 06/05/24 06/05/24 Range/Units 13:29 13:34 WBC 4.87 (4.8-10.8) K/ul RBC 4.17 L (4.20-5.40) M/uL Hgb 10.8 L (12.0-16.0) g/dl Hct 35.0 L (37.0-47.0) % MCV 83.9 (80.0-100.0) fL MCH 25.9 (25.0-34.0) pg MCHC 30.9 L (32.0-36.0) g/dL RDW Std Deviation 46.5 H (36.4-46.3) fL RDW Coeff of Dilshad 15.4 H (11.5-14.5) % Plt Count 253 (130-400) K/uL MPV 9.3 L (9.4-12.4) fL Immature Gran % (Auto) 0.2 % Neut % (Auto) 56.7 % Lymph % (Auto) 30.0 % [place] % (Auto) 6.8 % Eos % (Auto) 5.3 % Baso % (Auto) 1.0 % Neut # (Auto) 2.76 (1.40-6.50) K/uL Lymph # (Auto) 1.46 (1.20-3.40) K/uL [place] # (Auto) 0.33 (0.11-0.59) K/uL Eos # (Auto) 0.26 (0.00-0.50) K/uL Baso # (Auto) 0.05 (0.00-0.20) K/uL Immature Gran # (Auto) 0.01 (0.01-0.20) K/uL PT 10.4 (9.0-12.0) Seconds INR 1.0 (0.9-1.1) Sodium 140 (136-145) mmol/L Potassium 4.0 (3.5-5.1) mmol/L Chloride 104 (98-107) mmol/L Carbon Dioxide 29 (21-32) mmol/L Anion Gap 7 (3-11) BUN 14 (6-23) mg/dl Creatinine 0.62 (0.6-1.2) mg/dl Est Cr Clr Drug Dosing 107.5 ml/min Est GFR ( Amer) 112.0 ml/min Est GFR (Non-Af Amer) 96.6 ml/min BUN/Creatinine Ratio 22.6 H (10-20) Glucose 91 (70-99(Fasting)) mg/dl Calcium 9.5 (8.6-10.3) mg/dl Magnesium 1.8 (1.7-2.4) mg/dl Total Bilirubin 0.5 (0.2-1.0) mg/dl AST 19 (13-39) U/L ALT 11 (7-52) U/L Alkaline Phosphatase 64 (34-104) U/L Troponin I High Sens 2.8 (0-14) pg/ml Total Protein 7.6 (6.0-8.3) gm/dl Albumin 4.3 (3.4-5.0) gm/dl Globulin 3.3 (2.5-4.0) gm/dl Albumin/Globulin Ratio 1.3 (0.9-2) Lipase 34 (11-82) U/L TSH 1.145 (0.300-4.500) uIu/ml Urine Color Dark Yellow Urine Appearance Clear (Clear) Urine pH 5.5 (4.5-7.5) Ur Specific [place] 1.024 (1.000-1.030) Urine Protein Negative (Negative) Urine Glucose (UA) Negative (Negative) Urine Ketones Negative (Negative) Urine Blood Negative (Negative) Urine Nitrite Negative (Negative) Urine Bilirubin Negative (Negative) Urine Urobilinogen Negative (Negative) Ur Leukocyte Esterase Negative (Negative) Administered Medications Aspirin (Aspirin 81 Mg Ectab) 81 mg PO [facility] Stop: 07/06/24 08:59 Last Admin: 06/06/24 08:33 Dose: 81 mg Documented By: WS Atorvastatin Calcium (Atorvastatin 40 Mg Tab) 40 mg PO [facility] Stop: 07/06/24 08:59 Last Admin: 06/06/24 08:33 Dose: 40 mg Documented By: WS Clonazepam (Clonazepam 0.25 Mg Od Tab) 0.25 mg PO DAILY PRN PRN Reason: Anxiety/Agitation Stop: 07/06/24 08:59 Last Admin: 06/06/24 08:41 Dose: 0.25 mg Documented By: JAYA Enoxaparin Sodium (Enoxaparin Inj 40 Mg/0.4 Ml Syr) 40 mg SQ Q24H [facility] Stop: 07/06/24 08:59 Last Admin: 06/06/24 08:32 Dose: 40 mg Documented By: WS Ferrous Sulfate (Ferrous Sulfate 325 Mg Tab) 325 mg PO [facility] Stop: 07/06/24 13:29 Last Admin: 06/06/24 14:18 Dose: 325 mg Documented By: WS Levothyroxine Sodium (Levothyroxine Sodium 50 Mcg Tablet) 50 mcg PO [id number] [facility] Stop: 07/06/24 06:29 Last Admin: 06/06/24 06:05 Dose: 50 mcg Documented By: CF Polyethylene Glycol (Polyethylene (Miralax) 17 Gm Pack) 17 gm PO BID SARAH Stop: 07/05/24 20:59 Last Admin: 06/06/24 19:54 Dose: Not Given Documented By: Admin: 06/06/24 08:33 Dose: 17 gm Documented By: Admin: 06/05/24 20:09 Dose: Not Given Documented By: CF Tramadol HCl (Tramadol Hcl 50 Mg Tablet) 50 mg PO Q8H PRN PRN Reason: Pain Stop: 07/05/24 18:34 Last Admin: 06/06/24 19:56 Dose: 50 mg Documented By: Admin: 06/05/24 20:11 Dose: 50 mg Documented By: CF Discontinued Medications Sodium Chloride (Nss) 1,000 mls @ 125 mls/hr IV .Q8H SARAH Stop: 07/05/24 12:59 Last Infusion: 06/05/24 19:42 Dose: Infused Documented By: Admin: 06/05/24 13:33 Dose: 125 mls/hr Documented By: AM Acetaminophen (Ofirmev) 1,000 mg in 100 mls @ 400 mls/hr IV NOW STA Stop: 06/05/24 16:02 Last Infusion: 06/05/24 16:19 Dose: Infused Documented By: Admin: 06/05/24 16:04 Dose: 400 mls/hr Documented By: FAYE Famotidine (Pepcid 20mg Iv Push) 20 mg in 5 mls @ 2.5 mls/min IV NOW STA Stop: 06/05/24 15:50 Last Admin: 06/05/24 16:04 Dose: 2.5 mls/min Documented By: FAYE Ketorolac Tromethamine (Ketorolac Tromethamine 15 Mg/Ml Vial) 15 mg IV NOW ONE Stop: 06/06/24 22:26 Last Admin: 06/06/24 22:36 Dose: 15 mg Documented By: EULALIA Imaging Data Radiologist's Impression: Chest X-Ray 06/05/24 12:59 XR chest 1V portable CLINICAL HISTORY: weakness, dizzy COMPARISON STUDY: Chest CT and chest radiograph May 03, 2024. FINDINGS: Lung volumes are normal. Lungs are clear. There is no pneumothorax or pleural effusion. Cardiac size is normal. Mediastinal contours are normal. There is no evidence for pulmonary edema. IMPRESSION: No acute cardiopulmonary findings. ACT 112: Negative or not required by law. Electronically signed by: Momo Dumont M.D. 06/05/2024 1:[address] 06/05/24 12:59 CT angio head w con, CT head/brain wo con CLINICAL HISTORY: 63 years-old Female with LUE weakness, dizzy, paresthesias. Acute strokelike symptoms COMPARISON STUDY: CTA neck of same day TECHNIQUE: Unenhanced axial CT scan of the brain is performed. Subsequently, following the IV administration of 119 cc of Optiray, CT angiogram of the brain was performed from the skull base to the vertex. Images are reviewed in the axial, sagittal, and coronal planes. 3-D MIPS images are created and assessed. IV contrast was administered without complication. All measurements were obtained according to NASCET criteria. A dose lowering technique was utilized adhering to the principles of ALARA. CT DOSE: 1097.11 mGy.cm FINDINGS: CT BRAIN: There is no acute intracranial hemorrhage, midline shift, hydrocephalus, intracranial mass, territorial ischemia or abnormal extra-axial collections. No abnormal intra-axial or extra-axial enhancement. Mastoid air cells and middle ear cavities are clear. No calvarial fracture. Paranasal sinuses are clear. CT ANGIOGRAM OF THE BRAIN: The imaged bilateral internal carotid arteries are patent. The bilateral anterior and middle cerebral arteries are also patent. The vertebrobasilar system and posterior cerebral arteries are widely patent. There is no aneurysm, high-grade stenosis, or proximal branch occlusion identified. Dural sinuses appear patent. IMPRESSION: 1. No acute intracranial abnormality. 2. Unremarkable CTA of the head. ACT 112: Negative or not required by law. The above report was generated using voice recognition software. It may contain grammatical, syntax or spelling errors. Electronically signed by: Naeem Gomez M.D. 06/05/2024 3:58 PM Head CTA 06/05/24 12:59 CT angio head w con, CT head/brain wo con CLINICAL HISTORY: 63 years-old Female with LUE weakness, dizzy, paresthesias. Acute strokelike symptoms COMPARISON STUDY: CTA neck of same day TECHNIQUE: Unenhanced axial CT scan of the brain is performed. Subsequently, following the IV administration of 119 cc of Optiray, CT angiogram of the brain was performed from the skull base to the vertex. Images are reviewed in the axial, sagittal, and coronal planes. 3-D MIPS images are created and assessed. IV contrast was administered without complication. All measurements were obtained according to NASCET criteria. A dose lowering technique was utilized adhering to the principles of ALARA. CT DOSE: 1097.11 mGy.cm FINDINGS: CT BRAIN: There is no acute intracranial hemorrhage, midline shift, hydrocephalus, intracranial mass, territorial ischemia or abnormal extra-axial collections. No abnormal intra-axial or extra-axial enhancement. Mastoid air cells and middle ear cavities are clear. No calvarial fracture. Paranasal sinuses are clear. CT ANGIOGRAM OF THE BRAIN: The imaged bilateral internal carotid arteries are patent. The bilateral anterior and middle cerebral arteries are also patent. The vertebrobasilar system and posterior cerebral arteries are widely patent. There is no aneurysm, high-grade stenosis, or proximal branch occlusion identified. Dural sinuses appear patent. IMPRESSION: 1. No acute intracranial abnormality. 2. Unremarkable CTA of the head. ACT 112: Negative or not required by law. The above report was generated using voice recognition software. It may contain grammatical, syntax or spelling errors. Electronically signed by: Naeem Gomez M.D. 06/05/2024 3:58 PM Neck CTA 06/05/24 12:59 NECK CTA HISTORY: LUE weakness, dizzy, paresthesias TECHNIQUE: Multiaxial CT images of the neck were performed following the intravenous administration of contrast to evaluate the major cervical vessels. 3D/MIP images were also obtained. Sagittal and coronal reformats were reviewed. All measurements were calculated based on NASCET criteria. A dose lowering technique was utilized adhering to the principles of ALARA. COMPARISON STUDY: None. FINDINGS: The aortic arch and proximal great vessels are widely patent. There is no significant stenosis, occlusion, or dissection identified within the bilateral common carotid, internal carotid, or vertebral arteries. Anterior cervical discectomy and fusion from C4 through C6. Trace bilateral mastoid effusions. Mild calcified plaque within the proximal left internal carotid artery. IMPRESSION: No significant stenosis, occlusion, or dissection identified within the carotid or vertebral arteries. ACT 112: Negative or not required by law. Electronically signed by: Ernst Arredondo M.D. 06/05/2024 3:52 PM Discharge Plan Visit Data Chief Complaint: TIA Symptoms Stated Complaint: TIA SYMPTOMS ED Provider: Sneha Rojas Discharge Problem: LUE weakness, Arm paresthesia, left, Chest pain Patient Disposition: Admitted As Inpatient Discharge Instructions Interventions: ED Discharge Assessment Last Done: 06/05/24 18:16
[2024-06-05] MEDS: SODIUM CHLORIDE 0.9% 1,000 ML IV SCH (13:33)
--- NOTE | 2024-06-05 13:41 | XRay Report ---
XR chest 1V portable CLINICAL HISTORY: weakness, dizzy COMPARISON STUDY: Chest CT and chest radiograph May 03, 2024. FINDINGS: Lung volumes are normal. Lungs are clear. There is no pneumothorax or pleural effusion. Car diac size is normal. Mediastinal contours are normal. There is no evidence for pulmonary edema. IMPRESSION: No acute cardiopulmonary findings. ACT 112: Negative or not required by law. Electronically signed by: Momo Dumont M.D. 06/05/2024 1:40 PM
[2024-06-05 14:09] LABS: Appearance Urine Clear (Clear); Bilirubin Urine Negative (Negative); Blood Urine Negative (Negative); Color Urine Dark Yellow; Glucose Urine UA Negative (Negative); Ketones Urine Negative (Negative); Leukocyte Esterase Urine Negative (Negative); Nitrite Urine Negative (Negative); Protein Urine Negative (Negative); Specific Gravity Urine 1.024 (1.000-1.030); Urobilinogen Urine Negative (Negative); pH Urine 5.5 (4.5-7.5)
[2024-06-05 14:10] LABS: Basophils # (auto) 0.05 K/uL (0.00-0.20); Eosinophils # (auto) 0.26 K/uL (0.00-0.50); Eosinophils % (auto) 5.3 %; Hemoglobin 10.8 g/dl (12.0-16.0); Immature Granulocytes # (auto) 0.01 K/uL (0.01-0.20); Immature Granulocytes % (auto) 0.2 %; Lymphocytes # (auto) 1.46 K/uL (1.20-3.40); Mean Corpuscular Hemoglobin 25.9 pg (25.0-34.0); Mean Corpuscular Hgb Conc 30.9 g/dL (32.0-36.0); Mean Corpuscular Volume 83.9 fL (80.0-100.0); Mean Platelet Volume 9.3 fL (9.4-12.4); Monocytes # (auto) 0.33 K/uL (0.11-0.59); Monocytes % (auto) 6.8 %; Neutrophils # (auto) 2.76 K/uL (1.40-6.50); Neutrophils % (auto) 56.7 %; Platelet Count 253 K/uL (130-400); RDW Coefficient of Variation 15.4 % (11.5-14.5); RDW Standard Deviation 46.5 fL (36.4-46.3); Red Blood Count 4.17 M/uL (4.20-5.40); White Blood Count 4.87 K/ul (4.8-10.8)
--- NOTE | 2024-06-05 14:23 | Electrocardiogram Report ---
Test Reason : Blood Pressure : */* mmHG Vent. Rate : 83 BPM Atrial Rate : 83 BPM P-R Int : 186 ms QRS Dur : 76 ms QT Int : 366 ms P-R-T Axes : 46 17 33 degrees QTcB Int : 430 ms Normal sinus rhythm Normal ECG When compared with ECG of 03-May-2024 15:54, No significant change was found Confirmed by Robert Ward ([id number]) on 06/05/2024 2:23:00 PM Referred By: Confirmed By: Robert Ward
[2024-06-05 14:25] LABS: Albumin Globulin Ratio 1.3 (0.9-2); Albumin Level 4.3 gm/dl (3.4-5.0); BUN Creatinine Ratio 22.6 (10-20); Bilirubin,Total 0.5 mg/dl (0.2-1.0); Calcium 9.5 mg/dl (8.6-10.3); Creatinine Clr Calc Pharmacy 107.5 ml/min; Est GFR (Non-African American) 96.6 ml/min; Globulin 3.3 gm/dl (2.5-4.0); Magnesium 1.8 mg/dl (1.7-2.4); Total Protein 7.6 gm/dl (6.0-8.3)
[2024-06-05 14:30] LABS: Troponin I High Sensitivity 2.8 pg/ml (0-14)
[2024-06-05 14:32] LABS: Prothrombin Time 10.4 Seconds (9.0-12.0)
[2024-06-05 14:40] LABS: Thyroid Stimulating Hormone 1.145 uIu/ml (0.300-4.500)
--- NOTE | 2024-06-05 15:53 | CT Scan Report ---
NECK CTA HISTORY: LUE weakness, dizzy, paresthesias TECHNIQUE: Multiaxial CT images of the neck were performed following the intravenous administration o f contrast to evaluate the major cervical vessels. 3D/MIP images were also obtained. Sagittal and cor onal reformats were reviewed. All measurements were calculated based on NASCET criteria. A dose low ering technique was utilized adhering to the principles of ALARA. COMPARISON STUDY: None. FINDINGS: The aortic arch and proximal great vessels are widely patent. There is no significant sten osis, occlusion, or dissection identified within the bilateral common carotid, internal carotid, or v ertebral arteries. Anterior cervical discectomy and fusion from C4 through C6. Trace bilateral mastoi d effusions. Mild calcified plaque within the proximal left internal carotid artery. IMPRESSION: No significant stenosis, occlusion, or dissection identified within the carotid or vertebral arteries . ACT 112: Negative or not required by law. Electronically signed by: Ernst Arredondo M.D. 06/05/2024 3:52 PM
--- NOTE | 2024-06-05 15:59 | CT Scan Report ---
CT angio head w con, CT head/brain wo con CLINICAL HISTORY: 63 years-old Female with LUE weakness, dizzy, paresthesias. Acute strokelike sym ptoms COMPARISON STUDY: CTA neck of same day TECHNIQUE: Unenhanced axial CT scan of the brain is performed. Subsequently, following the IV adminis tration of 119 cc of Optiray, CT angiogram of the brain was performed from the skull base to the vert ex. Images are reviewed in the axial, sagittal, and coronal planes. 3-D MIPS images are created and a ssessed. IV contrast was administered without complication. All measurements were obtained according to NASCET criteria. A dose lowering technique was utilized adhering to the principles of ALARA. CT DOSE: 1097.11 mGy.cm FINDINGS: CT BRAIN: There is no acute intracranial hemorrhage, midline shift, hydrocephalus, intracranial mass, territori al ischemia or abnormal extra-axial collections. No abnormal intra-axial or extra-axial enhancement. Mastoid air cells and middle ear cavities are clear. No calvarial fracture. Paranasal sinuses are cl ear. CT ANGIOGRAM OF THE BRAIN: The imaged bilateral internal carotid arteries are patent. The bilateral anterior and middle cerebral arteries are also patent. The vertebrobasilar system and posterior cerebral arteries are widely greene nt. There is no aneurysm, high-grade stenosis, or proximal branch occlusion identified. Dural sinuses appear patent. IMPRESSION: 1. No acute intracranial abnormality. 2. Unremarkable CTA of the head. ACT 112: Negative or not required by law. The above report was generated using voice recognition software. It may contain grammatical, syntax o r spelling errors. Electronically signed by: Naeem Gomez M.D. 06/05/2024 3:58 PM
[2024-06-05] MEDS: FAMOTIDINE 20MG IV PUSH 20 MG/5 ML SYR IV STA (16:04)
[2024-06-05] MEDS: ACETAMINOPHEN 1,000 MG/100 ML VIAL IV STA (16:04)
--- NOTE | 2024-06-05 16:54 | History & Physical Report ---
Date of Service June 05, 2024 Assessment & Plan (1) Arm paresthesia, left: Plan: Facial/left-sided paresthesias Strength exam is intact without focal deficits, although fatigues easily on conche operator of the left hand is otherwise intact. Qualitative decrease sensation to left face and left hand to soft touch. Left hip strength exam limited by recent hip replacement, ankle dorsiflexion/plantarflexion is 5/5 and symmetrical CThead, CTAhead/neck without acute finding Admitted with MRI pending Patient does have a history of cervical disc disease with a plate in place, and lumbosacral lumbar disease and stenosis. Extremity symptoms could be related to this however this does not explain her facial numbness Started on aspirin 81 mg daily, additional adjustments based on continued evaluation. Thrombolytics are not indicated both due to duration of symptoms and minimal symptoms which are improving on exam Systolic murmurs present on exam, new to patient. Echo pending with bubble study as part of stroke evaluation Symptom onset near 24 hours old, will lower hypertension parameters to 180/100. Labetalol on-call as needed. (2) Spinal stenosis of lumbar region: Plan: As noted (3) Hypothyroidism: Plan: Continue Synthroid Plan DVT prophylaxis: Lovenox Diet: Heart healthy Disposition: PCU for stroke eval CODE STATUS: Full code History of Present Illness Primary Care Provider: Goyo Yanes MD Beryl is a 63-year-old female with a past medical history of left hip replacement, anxiety, positive AMA, chronic lumbar back pain with radiculopathy, chronic cervical dysfunction s/p decompression and plate placement who presents for left-sided facial and left arm numbness/tingling, slight left upper extremity weakness, and limited left lower extremity strength exam due to recent hip replacement. She is recommended for evaluation of potential strokelike symptoms. Patient also notes diffuse myalgias and with a diffusely positive review of symptoms at time of admission, endorses a significant anxiety component. Beryl notes that she had her left hip replaced about 1 month ago. She has not had fevers, has felt cold at night and had some chills recently. Her hip is painful but has been trying to stay active. She has not noticed any erythema, warmth, increased tenderness, or increased swelling at the hip although hip swelling since surgery persists and is gradually decreasing. She noticed last night and today that she has had some numbness in her left arm and left face which is atypical for her. She thinks her left conche operator is slightly weaker than normal, she is able to move upper extremities equally. No dysarthria or aphasia. No headache. No vision change. Denies tobacco/alcohol use. She had been taking aspirin 325 mg twice a day for DVT prophylaxis for 1 month, she has not taken this since Monday as she finished her 1 month course. Is not on aspirin or Plavix normally. No calf pain. No inspiratory pain. Denies shortness of breath. Reexamination she notes that she has had some left sided chest discomfort, this is directly reproducible and worsened by palpation of the overlying rib. Medical History: Reviewed Medications: Reviewed Surgical History: Reviewed Family history: Reviewed Allergies: Reviewed Social History: Reviewed Code Status: Full Allergies Allergy/AdvReac Type Severity Reaction Status Date / Time morphine Allergy Severe SHORT OF Verified 05/03/24 18:28 BREATH celecoxib [From Celebrex] Allergy Intermediate swelling Verified 05/03/24 18:28 gabapentin Allergy Intermediate Blurry Verified 05/03/24 18:28 Vision Sulfa (Sulfonamide Allergy Intermediate Rash Verified 05/03/24 18:28 Antibiotics) levofloxacin Allergy Mild RASH WITH Verified 05/03/24 18:28 IV MEDICATION Quinolones Allergy Mild Rash Verified 05/03/24 18:28 wheat Allergy Mild GI Verified 05/03/24 18:28 SENSITIVITY diphenhydramine AdvReac Intermediate "KEEPS ME Verified 05/03/24 18:28 AWAKE INSTEAD OF MAKING ME SLEEPY" hydroxyzine AdvReac Intermediate HYPERACTIVE Verified 05/03/24 18:28 prednisone AdvReac Intermediate PSYCHOTIC Verified 05/03/24 18:28 COMPLICATIONS tramadol AdvReac Intermediate "OUT OF Verified 05/03/24 18:28 BODY"/DISORIENTED Home Medications Medication Instructions Recorded Confirmed Type vitamin B complex 1 cap PO QAM 07/17/18 06/05/24 History cholecalciferol (vitamin D3) 25 1,000 units PO QAM 06/01/20 06/05/24 History mcg (1,000 unit) capsule (Vitamin D3) acetaminophen 500 mg tablet 1,000 mg PO Q8H PRN Pain 04/24/23 06/05/24 History krill 1,000 mg-omega-3 170 mg-dha 1 cap PO DAILY 10/06/23 06/05/24 History 50 mg-epa 80 [id number] capsule (krill oil) levothyroxine 50 mcg tablet 50 mcg PO UD 12/25/23 06/05/24 History loratadine 10 mg tablet (Claritin) 10 mg PO DAILY PRN Congestion 05/03/24 06/05/24 History tramadol 50 mg tablet 50 mg PO Q8H PRN Pain 05/03/24 06/05/24 History zinc sulfate 50 mg zinc (220 mg) 50 mg PO DAILY 05/03/24 06/05/24 History capsule ferrous sulfate 325 mg (65 mg 325 mg PO QAM 30 days #30 tabs 05/07/24 06/05/24 Rx iron) tablet,delayed release clonazepam 1 tab PO DIRECTED PRN Other 06/05/24 06/05/24 History Past Med/Surg History Problem List (Updated 06/05/24 @ 13:08 by Sneha Rojas DO) Arm paresthesia, left (Acute) LUE weakness (Acute) Hip pain Ambulatory dysfunction (Acute) Sinus tachycardia (Acute) Spinal stenosis of lumbar region Intractable back pain (Acute) Osteoarthritis of right hip (Acute) Lumbar back pain with radiculopathy affecting right lower extremity (Acute) Right leg pain Lipedema Fatty infiltration of liver Dyslipidemia Prediabetes Osteoarthritis of right hip Sacroiliac joint pain Postlaminectomy syndrome of lumbosacral region Right leg weakness Migraine (Chronic) Morbid obesity (Chronic) Neurogenic claudication due to lumbar spinal stenosis Metabolic syndrome Pulmonary embolism Sensorineural hearing loss (SNHL) of both ears 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 SINGLE FLARE 2012. Anxiety Hypothyroidism Surgical History Hx of arthroscopy of left knee Hx of spinal surgery History of right knee joint replacement H/O bilateral salpingo-oophorectomy History of carpal tunnel release RT/LEFT History of bilateral tubal ligation [place] teeth removed History of myringotomy History of esophagogastroduodenoscopy (EGD) History of breast biopsy R BREAST-BENIGN History of section X4 History of colonoscopy History of appendectomy History of bronchoscopy TO DX SARCODOSIS 2012 S/P lumbar spinal fusion S/P cervical spinal fusion GOOD ROM S/P partial hysterectomy Family History Brother Diabetes Colorectal cancer Mother Diabetes Stomach cancer Sarcoidosis Lymphoma Father Coronary heart disease Other Cancer Heart disease Hypertension No family history of adverse response to anesthesia No family history of bleeding disorder Social History Smoking Status: Never smoker Second Hand Exposure: No; Do You Dip or Chew Tobacco: No; Hx Alcohol Use: No Hx Substance Use: No Preferred Language: [place]ijani Communication Ability: Effective Visual Impairment: No Limitations Community Relations Rep Required: No Beliefs That Will Affect Care: Mandaeism Mandaeism Beliefs: Roman Catholic marital status: Current Living Situation: Spouse Current Living Situation Comment: Lives with , patient's brother and SUMEET Feels Safe at Home: Yes Assistive Devices: Walker Physical Exam Physical Exam: General: A&Ox3. NAD. Cooperative. HEENT: Atraumatic, normocephalic. Pupils equal and reactive to light and accommodation Pulm: CTAB A&P. -wheezes, -rales, -rhonchi. Symmetrical chest rise. No increased work of breathing. No respiratory distress. Cardiac: RRR, +sm. Radial pulses intact and symmetrical. Abdominal: Nontender, nondistended, soft. BS present. Neuro/extremities: Left hip with postoperative surgical incision well-healed, no erythema or dehiscence. No fluctuance appreciated. Sensation of soft touch is intact in the feet, legs, and hands bilaterally although slightly qualitatively diminished in the left hand. Sensation intact in V1/V2/V3 of the face although patient endorses some qualitative decrease on the left face. Tongue protrudes midline. Radio Message Router strength 5/5 bilaterally. No pronator drift. [id number] intact without dysmetria. Results & Data Results & Data Vital Signs (Past 12 Hours) Vital Signs Temp Pulse Resp BP Pulse Ox O2 Del Method 06/05/24 13:37 84 06/05/24 12:44 36.7 C 91 H 18 185/105 H 98 Room Air PG Care Time/CCT Total # of Minutes Spent Total Time Spent with Patient: Total time spent is greater than 50% in coordination of care (as documented) at patient's floor/unit and/or counseling patient: Coding Level of Care Code 42118 INT INP/OBS CARE 3/75MIN Diagnoses Arm paresthesia, left R20.2 Spinal stenosis of lumbar region M48.061 Hypothyroidism E03.9
[2024-06-05] MEDS ORDERED: LABETALOL HCL IV 5 MG/ML 20ML IV PRN (17:09)
[2024-06-05] MEDS ORDERED: LORazepam 0.5 MG in SYRINGE 0.25 ML IV PRN (18:35)
[2024-06-05] MEDS ORDERED: PHARMACIST DISCHARGE MED REC CONSULT PRN (18:35)
[2024-06-05] MEDS: POLYETHYLENE (MIRALAX) 17 GM PACK PO SCH (20:09)
[2024-06-05] MEDS: traMADol HCL 50 MG TABLET PO PRN (20:11)
--- OUTSIDE RECORDS SUMMARY | 2024-06-05 20:22 | External Medical Summary | Continuity of Care Document ---
Author Name Unknown Organization [id number] Address [address] [place] [address] [phone] Care Team Providers Care Energy Specialist Name Role Phone Goyo Yanes Primary Care Physician [phone] Encounter [facility] TAY [id number] Date(s): 05/16/24 - 05/16/24 [facility] [address] [facility] [address] [facility] [address] [place] [address] Encounter Diagnosis Encounter for staple removal(Discharge Diagnosis) - 05/16/24 Discharge Disposition: Home or Self Care Attending Physician: ADARSH Mead Cory D Allergies, Adverse Reactions, Alerts Substance Criticality Severity Reaction Reaction Severity Status morphine Unable to assess criticality Mild SOB - Shortness of breath Active hydrOXYzine Unable to assess criticality Moderate HYPERACTIVE hyperactive Active Vistaril ? unknown Active Pharbedryl ? Unknown? Active predniSONE ? Unknown Active gabapentin Unable to assess criticality Moderate Blurry Vision Active sulfa drugs rash Active Levaquin rash per pt IV Active celecoxib Unable to assess criticality Moderate swelling Active quinolones (fluoroquinolone antibiotics) rash Active Allergy (Diphenhydramine HCl) Propensity to adverse reaction Active traMADol disoriented Active levoFLOXacin Unable to assess criticality Mild RASH Active Assessment and Plan Extracted from: Title:Clinical Document Author:ADARSH Mead C ory D Date:05/16/24 OUTPATIENT NOTE Name: CHICHI COTTON Patient Number:[id number] : 1960 Date of Service: 05/16/2024 Chief complaint: Follow-up left total hip surgical visit HPI: This 63-year-old female presents today with her , for follow-up on her left hip. She is 16 days status post left total hip arthroplasty. She has no complaints. She continues to use her walker. She feels she is doing well. Patient denies any nausea, vomiting, abdominal pain, neck pain, or headache. No chest pain or shortness of breath. She denies any numbness or tingling in the left leg. She has been keeping the wounds clean and dry and is attending outpatient physical therapy. She notes some bruising on her left knee and states it is resolving compared to earlier in the week. No other complaints. Physical exam: Evaluation of the left hip reveals no obvious deformity. Post surgical dressings are in place. Upon removal, the surgical incision is closed and sealed. She has a buried running absorbable suture. Wound edges are well approximated. No erythema or warmth. No active drainage. Expected post operative ecchymosis and edema. No pocketing. Musculoskeletal: Left hip evaluation shows supple motion. No pain with passive hip flexion and internal/external rotation. Intact quad set. Patient has full active motion of the ankle and toes. There is mild discomfort with palpation of the gluteus. No significant discomfort with palpation around the ankle or foot. She is ambulating with a slow steady but normal gait. Neurologic: Gross sensation is intact across the left leg by soft touch. Peripheral pulses are 2+. Impression: Left hip 16 days status post total hip arthroplasty Plan: The patient was educated regarding today's findings. Conservative care measures were discussed. Wounds were cleansed with alcohol. Benzoin and Steri-Strips were applied. These will fall off on their own in the next 7 to 10 days. She may get the wound wet in the shower starting tomorrow. Avoid scrubbing. Avoid soaking. No swimming pools for another 10 to 14 days. Continue PT. Continue the walker. Transition to a cane as pain and balance dictate. Follow-up with me or Dr. Lindquist in 4 to 6 weeks for reassessment. Please obtain x-rays of the pelvis and left hip at that visit. Continue ice application and elevation to reduce pain/swelling. Continue with her aspirin 325mg twice daily. Call with any other concerns. This dictation has been completed using [employer] text voice recognition software. Grammatical errors, omissions, insertions, and misspellings may be present due to the limitations of the software. Immunizations Given and Recorded Vaccine Date Status [...] 14Result Comment: 2020-11-24: Historical information-source unspecified Medications aspirin 325 mg oral capsule Start: 03/06/24 4:11:00 PM EDT, 1 cap, PO, bid Start Date: 03/06/24 Stop Date: 05/30/24 Status: Ordered Claritin Start: 03/07/22 8:51:00 AM EDT, 10 mg =, Daily, PRN Start Date: 03/07/22 Status: Ordered Duricef 500 mg oral capsule Start: 05/01/24 4:00:00 PM EDT, 1 cap, PO, q12h, Disp# 28 cap, Pharmacy: [facility] Start Date: 05/01/24 Stop Date: 05/15/24 Status: Ordered Efudex 5% topical cream Start: 03/20/24 8:44:00 AM EDT, 1 appl, topical, bid, Disp# 40 g, Refills: 0, apply to right buttockfor actinic keratosis for 4 weeks and then stop, Pharmacy: [email or web address] Start Date: 03/20/24 Status: Ordered Daniella [employer] [place]-3 oral tablet, chewable Start: 10/30/23 11:00:00 AM EST, 1 cap, Daily, 1 Unknown, Unknown Start Date: 10/30/23 Status: Ordered levothyroxine 50 mcg (0.05 mg) oral tablet Start: 03/20/24 8:44:00 AM EDT, See Instructions, Disp# 180 tab, Refills: 4, TAKE 1 TABLET BY MOUTH 4 DAYS A WEEK AND 1 AND 1/2 TABLETS 3 DAYS A WEEK, Pharmacy: [email or web address] Start Date: 03/20/24 Status: Ordered lidocaine topical 5% patch Start: 03/20/24 8:44:00 AM EDT, See Instructions, Disp# 56 patch, Refills: 0, APPY 1 PATCH FOR 12 HOURS TO AFFECTED AREA NEEDED FOR PAIN. REMOVE PATHCH AFTER 12 HOURS, Pharmacy: [id number] Start Date: 03/20/24 Status: Ordered Narcan 4 mg/0.1 mL nasal spray Start: 02/07/23 5:02:00 PM EDT, 4 mg =, intranasal, ONCE, Disp# 2 each, Refills: 1, may repeat every2 to 3 minutes until patient responds, Pharmacy: [facility] [id number] Start Date: 02/07/23 Status: Ordered One Touch Finepoint (25G) Lancets Start: 03/20/24 8:44:00 AM EDT, See Instructions, Disp# 30 each, Refills: 11, home glucose testing daily E11.9, Pharmacy: [id number] Start Date: 03/20/24 Status: Ordered One Touch Verio Glucose Monitor Start: 03/09/20 2:24:00 PM EDT, See Instructions, Disp# 1 each, Refills: 1, Use to check blood sugardaily, Note to Pharmacy: Dx E 11.9, Pharmacy: [id number] Start Date: 03/09/20 Status: Ordered One Touch Verio Test Strips Start: 03/20/24 8:44:00 AM EDT, See Instructions, Disp# 30 each, Refills: 11, use to check blood sugar daily, Note to Pharmacy: Dx E 11.9, Pharmacy: [id number] Start Date: 03/20/24 Status: Ordered oxyCODONE 5 mg oral tablet Start: 04/30/24 12:12:00 PM EDT, 5 mg =, PO, q4h, Disp# 20 tab, Refills: 0, PRN: pain - moderate (4-6), Pharmacy: [facility] Start Date: 04/30/24 Status: Ordered traMADol 50 mg oral tablet Start: 05/16/24 11:04:00 AM EDT, 2 tab, PO, q6h, Disp# 20 tab, Note to Pharmacy: initial script, PRN: as needed for pain, Stop: 05/23/24 11:00:00 AM EDT, Pharmacy: [id number] Start Date: 05/16/24 Stop Date: 05/23/24 Status: Ordered Tylenol 500 mg oral tablet Start: 02/13/24 12:45:00 PM EDT, 2 tab, PO, q8h Start Date: 02/13/24 Status: Ordered Ultram 50 mg oral tablet Start: 04/30/24 12:12:00 PM EDT, 1 tab, PO, q8h, Disp# 30 tab, Pharmacy: [facility] Start Date: 04/30/24 Status: Ordered Vitamin B Complex oral capsule Start: 10/30/23 11:02:00 AM EST, 1 cap, PO, Daily Start Date: 10/30/23 Status: Ordered Vitamin D3 Start: 07/06/18 1:58:00 PM EDT, 1,000 Int_Unit =, PO, Daily Start Date: 07/06/18 Status: Ordered Zinc Start: 01/29/24 9:01:00 AM EDT, 1 tab, Daily Start Date: 01/29/24 Status: Ordered Mental Status 05/16/24 Barriers to Learning one year None evide nt Mandatory Health Literacy Documentation Yes Health Literacy Communication Barriers N ever Primary Language Czech Problem List Condition Confirmation Course Effective Dates [...] Dates Health Status Cl inical Service Informant Encounter for staple removal Discharge Diagnosis 05/16/24 Procedures Procedure Date Related Diagnosis Body Site [...] Completed Colonoscopy 57 06/07/13 Completed Colonoscopy 58 8/16/13 Completed Endoscopy and biopsy of uppe r gastrointestinal tract 59 06/07/13 Comple mavis Upper GI endoscopy 60 06/07/13 Com pleted Ultrasound-Abdomen 61 06/03/13 Com pleted Fusion of joint of lumbar sp ine with internal fixation by posterior approach 2012 Completed Colonoscopy 62 10/25/11 Completed Endoscopy and biopsy 10/25/11 Comp leted Echocardiogram 11/06/08 Completed Holter monitor 2007 Completed Embolization of uterine artery 2000 Completed Tubal ligation 1997 Completed CARPAL TUNNEL SURGERY 63 1985 Completed Appendectomy Completed Bronchoscopy Completed Cervical spinal fusion Co mpleted section 64 Compl eted section Complete d History of total hysterectomy Completed Partial hysterectomy Comp leted Radiation burn 65 Complet ed Salpingo-oophorectomy [address] [place] [address] Impression: ACR BI-RADS CATEGORY 1: NEGATIVE 1. No evidence of malignancy [address] [place] [address] Impression: 1. No acute infectious or inflammatory findings are identified in the abdomen or pelvis 2. Punctate nonobstructing left renal calculus 3. Hepatomegaly and hepatic steatosis 3non bleeding internal hemorrhoids The examination was normal no specimens collected repeat in 5 years [facility] Impression: 1.Stable exam from the study obtained less than one month earlier on 02/06/2023 2. No acute fracture or bone marrow edema 3. Degenerative and postoperative changes 4. Neural foraminal narrowing without significant central canal stenosis 5[facility] Impression: 1. No acute bony abnormality is seen involving the lumbar spine 2. Osteopenia with postsurgical and mild spondylotic change 3. Advanced arthritic change is noted in the right hip [address] [place] [address] Impression: 1. No acute bony abnormality is [...] microscopic evaluation, The terminal ileum appears normal. [facility] 58Exaimed portion of the ileum was [...] Status Never smoked cigaret odalis Sex Female Sex Representation Female (finding) Implantable Device List Procedure Provider Procedure Date Device Type Site Unknown Unknown 04/30/24 Unknown Unknown Device Identifier Serial Number Lot or Batch Number Manufacturing Date Expiration Date Distinct Identification Code MRI Safety Implantable Status Assigning Authority Unknown Unknown [id number] Unknown 07/31/28 Unknown Unknown Active Unk nown Unknown Unknown [id number] Unknown 06/23/28 Unknown Unknown Active Unkn own Unknown Unknown [id number] Unknown 03/27/25 Unknown Unknown Active Unkn own Unknown Unknown [id number] Unknown 09/13/30 Unknown Unknown Active Un known Unknown Unknown [id number] Unknown 11/28/28 Unknown Unknown Active Unkn own Procedure Provider Procedure Date Device Type Site Unknown Unknown 02/13/24 Unknown Unknown Device Identifier Serial Number Lot or Batch Number Manufacturing Date Expiration Date Distinct Identification Code MRI Safety Implantable Status Assigning Authority Unknown Unknown [id number] Unknown 12/24/28 Unknown Unknown Active Unkn own Unknown Unknown [id number] Unknown 07/21/28 Unknown Unknown Active Unk nown Unknown Unknown [id number] Unknown 08/02/28 Unknown Unknown Active Un known Unknown Unknown [id number] Unknown 09/07/30 Unknown Unknown Active Un known Unknown Unknown [id number] Unknown 12/28/27 Unknown Unknown Active Unkn own Outpatient Note * ADARSH Mead, Jerel D: PERFORM, MODIFY Event Display: .Outpt Note Authored Date: [id number] OUTPATIENT NOTE Name: CHICHI COTTON Patient Number:[id number] : 1960 Date of Service: 05/16/2024 Chief complaint: Follow-up left total hip surgical visit HPI: This 63-year-old female presents today with her , for follow-up on her left hip. She is16 days status post left total hip arthroplasty. She has no complaints. She continues to use her walker. She feels she is doing well. Patient denies any nausea, vomiting, abdominal pain, neck pain, or headache. No chest pain or shortness of breath. She denies any numbness or tingling in the left leg. She has been keeping the wounds clean and dry and is attending outpatient physical therapy. She notes some bruising on her left knee and states it is resolving compared to earlier in the week. No other complaints. Physical exam: Evaluation of the left hip reveals no obvious deformity. Post surgical dressings arein place. Upon removal, the surgical incision is closed and sealed. She has a buried running absorbable suture. Wound edges are well approximated. No erythema or warmth. No active drainage. Expected post operative ecchymosis and edema. No pocketing. Musculoskeletal: Left hip evaluation shows supple motion. No pain with passive hip flexion and internal/external rotation. Intact quad set. Patient has full active motion of the ankle and toes. Thereis mild discomfort with palpation of the gluteus. No significant discomfort with palpation around the ankle or foot. She is ambulating with a slow steady but normal gait. Neurologic: Gross sensation is intact across the left leg by soft touch. Peripheral pulses are 2+. Impression: Left hip 16 days status post total hip arthroplasty Plan: The patient was educated regarding today's findings. Conservative care measures were discussed. Wounds were cleansed with alcohol. Benzoin and Steri- Strips were applied. These will fall off on their own in the next 7 to 10 days. She may get the wound wet in the shower starting tomorrow. Avoidscrubbing. Avoid soaking. No swimming pools for another 10 to 14 days. Continue PT. Continue the walker. Transition to a cane as pain and balance dictate. Follow-up with me or Dr. Lindquist in 4 to 6 weeks for reassessment. Please obtain x-rays of the pelvis and left hip at that visit. Continue ice application and elevation to reduce pain/swelling. Continue with her aspirin 325mg twice daily. Call with any other concerns. This dictation has been completed using [employer] text voice recognition software. Grammatical errors, omissions, insertions, and misspellings may be present due to the limitations of the software. Electronic Signature on File CC: Negrito Lindquist MD [address] [place] [address] Electronically Reviewed/Signed by: Jerel Mead PA-C Author Signature Dt/Tm:05/16/2024 05:35 PM Division of Sports Medicine Electronically Reviewed/Signed by: Raf Delgado MD Cosigner Signature Dt/Tm: 05/16/2024 05:52 PM Die Lay Out Worker for Clinical Affairs, [facility] Pricila Professor in Orthopaedics [place] [employer], [facility] CDS Patient Care team information Care Team Personnel Name: MD Spence Jonathan D Position: Physician - Family Med Member Role: Lifetime Relationship Address: [address] [place] [address] [place] Name: MD Yanes Christopher Position: Physician - Family Med Member Role: Primary Care Provider Address: [address] [place] [address] [place] Name: Torsten Newsome Ann Position: Pharmacist Member Role: Pharmacy - Lifetime Name: Torsten Stevens Brittani Position: Pharmacist Member Role: Pharmacy - Lifetime Care Team Related Persons Name: ISABELLE MCKEON Name: GERMAN COTTON Name: CARLITOS COTTON
--- OUTSIDE RECORDS SUMMARY | 2024-06-05 20:22 | External Medical Summary ---
Author Name Unknown Address Unknown Organization [facility] [address] Laboratory Report Ordering Provider Test Date Status JEREMIE MATT 05/14/2024 05:54:05 Final Observation Date Value Abnormality Reference (Units ) Status WBC, Total 05/14/2024 05:54:05 5.91 4.00-10.8 0 (K/uL) Final RBC 05/14/2024 05:54:05 3.01 3.85-5.15 (M/uL) Final Hemoglobin 05/14/2024 05:54:05 8.0 Below low normal 12 .0-15.3 (g/dL) Final HCT 05/14/2024 05:54:05 27.4 Below low normal 36. 0-45.2 (%) Final MCV 05/14/2024 05:54:05 91.0 81.5-97.5 (fL) Final MCH 05/14/2024 05:54:05 26.6 27.0-34.0 (pg) Final MCHC 05/14/2024 05:54:05 29.2 32.0-36.0 (g/dL) Final RDW 05/14/2024 05:54:05 15.5 11.5-15.5 (%) Final Platelets 05/14/2024 05:54:05 345 140-400 (K /uL) Final MPV 05/14/2024 05:54:05 8.5 6.6-11.1 ( fL) Final Performing Location [facility] [place] [address]
--- OUTSIDE RECORDS SUMMARY | 2024-06-05 20:22 | External Medical Summary ---
Author Name Unknown Address Unknown Organization [facility] [place] [address] Laboratory Report Ordering Provider Test Date Status HY,DEPAMPHILIS 05/08/2024 06:03:50 Final Observation Date Value Abnormality Reference (Units ) Status WBC, Total 05/08/2024 06:03:50 5.50 4.00-10.8 0 (K/uL) Final RBC 05/08/2024 06:03:50 2.75 3.85-5.15 (M/uL) Final Hemoglobin 05/08/2024 06:03:50 7.5 Below low normal 12 .0-15.3 (g/dL) Final HCT 05/08/2024 06:03:50 24.9 Below low normal 36. 0-45.2 (%) Final MCV 05/08/2024 06:03:50 90.5 81.5-97.5 (fL) Final MCH 05/08/2024 06:03:50 27.3 27.0-34.0 (pg) Final MCHC 05/08/2024 06:03:50 30.1 32.0-36.0 (g/dL) Final RDW 05/08/2024 06:03:50 15.0 11.5-15.5 (%) Final Platelets 05/08/2024 06:03:50 337 140-400 (K /uL) Final MPV 05/08/2024 06:03:50 8.7 6.6-11.1 ( fL) Final Performing Location [facility] [place] [address]
--- OUTSIDE RECORDS SUMMARY | 2024-06-05 20:22 | External Medical Summary ---
Author Name Unknown Address Unknown Organization [facility] [place] [address] Laboratory Report Ordering Provider Test Date Status HY,DEPAMPHILIS 05/08/2024 06:03:50 Final Observation Date Value Abnormality Reference (Units ) Status BUN 05/08/2024 06:03:50 11 6-20 (mg/dL) Final Creatinine 05/08/2024 06:03:50 0.7 0.5-1.0 (mg/dL) Final Glomerular filtration rate/1.73 sq M.predicted [Volume Rate/Area] in Serum, Plasma or Blood by Creatinine-based formula (CKD-EPI) 05/08/2024 06:03:50 >90 >=60 (mL/min) Final eGFR is calculated based on the CKD-EPI 2020 equation Sodium 05/08/2024 06:03:50 139 135-146 (m mol/L) Final Potassium 05/08/2024 06:03:50 4.4 3.5-5.1 (m mol/L) Final Cl 05/08/2024 06:03:50 101 98-107 (mm ol/L) Final CO2 05/08/2024 06:03:50 29 22-32 (mmo l/L) Final Anion gap 05/08/2024 06:03:50 9 7-15 (mmol /L) Final Glucose 05/08/2024 06:03:50 111 70-120 (mg /dL) Final Calcium 05/08/2024 06:03:50 8.8 8.4-10.2 ( mg/dL) Final Performing Location [facility] [place] [place] [address]
--- OUTSIDE RECORDS SUMMARY | 2024-06-05 20:22 | External Medical Summary | Continuity of Care Document ---
Author Name Unknown Organization [facility] Address [address] [place] [address] [id number] Care Team Providers Care Kinesiotherapist Name Role Phone Goyo Yanes Primary Care Physician [phone] Encounter [facility] [id number] Date(s): 04/30/24 - 05/02/[address] [phone] Encounter Diagnosis Osteoarthritis of left hip(Discharge Diagnosis) - 04/30/24 Discharge Disposition: Home or Self Care Attending Physician: MD Lexa, Negrito Young Allergies, Adverse Reactions, Alerts Substance Criticality Severity [...] swelling Active quinolones (fluoroquinolone antibiotics) rash Active Pharbedryl ? Unknown? Active traMADol disoriented Active levoFLOXacin Unable to assess criticality Mild RASH Active Allergy (Diphenhydramine HCl) Propensity to adverse reaction Active Functional Status 05/02/24 Neurological Symptoms None ADLs Independent Facial Symmetry Symmetric Gait Steady Swallowing Difficulty None Level of Consciousness Neuro Alert Hallucinations Present None History of Fall in Last 3 Months Muñiz N o Presence of Secondary Diagnosis Muñiz Ye s Use of Ambulatory Aid Muñiz None/bedrest /nurse assist IV/Heparin Lock Fall Risk Muñiz Yes Gait/Transferring Fall Risk Muñiz Normal /bedrest/immobile Mental Status Fall Risk Muñiz Oriented t o own ability Muñiz Fall Risk Score 35 Muñiz Fall Risk Low Risk Speech Pattern Clear Immunizations Given and Recorded Vaccine Date Status Refusal Reason pneumococcal 20-valent conjugate vaccine 9/29/23 Recorded SARS-CoV-2 mRNA (Pfizer 12+) bivalent 1 [...] cap, PO, q12h, Disp# 28 cap, Pharmacy: [facility] [place] Start Date: 05/01/24 Stop Date: 05/15/24 Status: Ordered Efudex 5% topical cream Start: 03/20/24 8:44:00 AM EDT, 1 appl, topical, bid, Disp# 40 g, Refills: 0, apply to right buttockfor actinic keratosis for 4 weeks and then stop, Pharmacy: [facility] Start Date: 03/20/24 Status: Ordered Daniella Krill Oil [place]-3 oral tablet, chewable Start: 10/30/23 11:00:00 AM EST, 1 cap, Daily, 1 Unknown, Unknown Start Date: 10/30/23 Status: Ordered levothyroxine 50 mcg (0.05 mg) oral tablet Start: 03/20/24 8:44:00 AM EDT, See Instructions, Disp# 180 tab, Refills: 4, TAKE 1 TABLET BY MOUTH 4 DAYS A WEEK AND 1 AND 1/2 TABLETS 3 DAYS A WEEK, Pharmacy: [facility] Start Date: 03/20/24 Status: Ordered lidocaine topical 5% patch Start: 03/20/24 8:44:00 AM EDT, See Instructions, Disp# 56 patch, Refills: 0, APPY 1 PATCH FOR 12 HOURS TO AFFECTED AREA NEEDED FOR PAIN. REMOVE PATHCH AFTER 12 HOURS, Pharmacy: [facility] [id number] Start Date: 03/20/24 Status: Ordered Narcan 4 mg/0.1 mL nasal spray Start: 02/07/23 5:02:00 PM EDT, 4 mg =, intranasal, ONCE, Disp# 2 each, Refills: 1, may repeat every2 to 3 minutes until patient responds, Pharmacy: [facility] [id number] Start Date: 02/07/23 Status: Ordered One Touch Finepoint (25G) Lancets Start: 03/20/24 8:44:00 AM EDT, See Instructions, Disp# 30 each, Refills: 11, home glucose testing daily E11.9, Pharmacy: [facility] [id number] Start Date: 03/20/24 Status: Ordered One Touch Verio Glucose Monitor Start: 03/09/20 2:24:00 PM EDT, See Instructions, Disp# 1 each, Refills: 1, Use to check blood sugardaily, Note to Pharmacy: Dx E 11.9, Pharmacy: [facility] [id number] Start Date: 03/09/20 Status: Ordered One Touch Verio Test Strips Start: 03/20/24 8:44:00 AM EDT, See Instructions, Disp# 30 each, Refills: 11, use to check blood sugar daily, Note to Pharmacy: Dx E 11.9, Pharmacy: [facility] [id number] Start Date: 03/20/24 Status: Ordered oxyCODONE 5 mg oral tablet Start: 04/30/24 12:12:00 PM EDT, 5 mg =, PO, q4h, Disp# 20 tab, Refills: 0, PRN: pain - moderate (4-6), Pharmacy: [facility] Start Date: 04/30/24 Status: Ordered Tylenol 500 mg oral tablet Start: 02/13/24 12:45:00 PM EDT, 2 tab, PO, q8h Start Date: 02/13/24 Status: Ordered Ultram 50 mg oral tablet Start: 04/30/24 12:12:00 PM EDT, 1 tab, PO, q8h, Disp# 30 tab, Pharmacy: [facility] Start Date: 04/30/24 Status: Ordered Vitamin B Complex oral capsule Start: 10/30/23 11:02:00 AM EST, 1 cap, PO, Daily Start Date: 10/30/23 Status: Ordered Vitamin D3 Start: 07/06/18 1:58:00 PM EDT, 1,000 Int_Unit =, PO, Daily Start Date: 07/06/18 Status: Ordered Zinc Start: 01/29/24 9:01:00 AM EDT, 1 tab, Daily Start Date: 01/29/24 Status: Ordered Mental Status 04/30/24 Communication Barrier Present No Problem List Condition Confirmation Course Effective Dates [...] Diagnosis Diagnosis Type Effective Dates Health Status Clinical Service Informant Osteoarthritis of left hip Discharge Diagnosis 04/30/24 Non-Specified Procedures Procedure Date Related Diagnosis Body [...] uppe r gastrointestinal tract 59 06/07/13 Comple alexandro Upper GI endoscopy 60 06/07/13 Com pleted Ultrasound-Abdomen 61 06/03/13 Com pleted Fusion of joint of lumbar sp ine with internal fixation by posterior approach 2012 Completed Colonoscopy 62 10/25/11 Completed Endoscopy and biopsy 10/25/11 Comp leted Echocardiogram 11/06/08 Completed Holter monitor 2007 Completed Embolization of uterine artery 1999 Completed Tubal ligation 1997 Completed CARPAL TUNNEL SURGERY 63 1984 Completed Appendectomy Completed Bronchoscopy Completed Cervical spinal fusion Co mpleted section 64 Compl eted section Complete d History of total hysterectomy Completed Partial hysterectomy Comp leted Radiation burn 65 Complet ed Salpingo-oophorectomy [address] [place] [address] Impression: ACR BI-RADS CATEGORY 1: NEGATIVE 1. No evidence of [facility] Imp[facility]: 1. No acute infectious or inflammatory findings are identified in the abdomen or pelvis 2. Punctate nonobstructing left renal calculus 3. Hepatomegaly and hepatic steatosis 3non bleeding internal hemorrhoids The examination was normal no specimens collected repeat in 5 years [facility] Imp[facility]: 1.Stable exam from the study obtained less than one month earlier on 02/06/2023 2. No acute fracture or bone marrow edema 3. Degenerative and postoperative changes 4. Neural foraminal narrowing without significant central canal stenosis [facility] Impression: 1. No acute bony abnormality is seen involving the lumbar spine 2. Osteopenia with postsurgical and mild spondylotic change 3. Advanced arthritic change is noted in the right hip [facility] Impression: 1. No acute bony abnormality [...] microscopic evaluation, The terminal ileum appears normal. [facility] 58Exaimed portion of the ileum was normal. [...] 15 years ago - bilat buttocks 66bilateral Results Laboratory List Name Date Complete Blood Count (CBC w Platelets) Basic Metabolic Panel (BMP) 05/01/24 Complete Blood Count (CBC w Platelets) Hematocrit (Hct) 04/30/24 Blood Type/Antibody Screen ( for possible transfusion) (Type and Screen (for possible transfusion)) 04/30/24 Most recent to oldest [Reference Range]: 1 2 3 ABO/Rh O POSITIVE *Unknown* (04/30/24 9:34 AM) Antibody Scr NEGATIVE *Unknown* (04/30/24 9:34 AM) Expires at 0600AM on 05/03/2024 *Unknown* (04/30/24 9:34 AM) # Units 0 (04/30/24 9:34 AM) R Number NRQ *Unknown* (04/30/24 9:34 AM) eGFR CKD-EPI [>60 mL/min/1.73 m2] >90 mL/min/1.73 m2 (05/01/24 5:28 AM) Estimated CrCl 95.49 mL/min (05/01/24 6:16 AM) MPV [9.0-12.2 fL] 10.3 fL (05/02/24 6:04 AM) 9.8 fL (05/01/24 5:28 AM) RDW [11.5-14.2 %] 14.4 % *HI* (05/02/24 6:04 AM) 14.0 % (05/01/24:28 AM) Component RED CELLS *Unknown* (04/30/24 9:34 AM) Anion Gap [5-14 mmol/L] 10 mmol/L (05/01/24 5:28 AM) BUN [6-23 mg/dL] 13 mg/dL (05/01/24:28 AM) Ca [8.4-10.2 mg/dL] 8.9 mg/dL (05/01/24: AM) Cl- [98-107 mmol/L] 103 mmol/L (05/01/24: AM) HCO3 [22-29 mmol/L] 26 mmol/L (05/01/24: AM) Cret [0.60-1.00 mg/dL] 0.70 mg/dL (05/01/24:28 AM) Glu [74-109 mg/dL] 115 mg/dL 1 *HI* (05/01/24: AM) Hct [35-44 %] 26.0 % *LOW* (05/02/24 6:04 AM) 29.5 % *LOW* (05/01/24: AM) 34.2 % *LOW* (04/30/24 12:59 PM) Hgb [11.7-15.0 g/dL] 8.7 g/dL *LOW* (05/02/24 6:04 AM) 9.4 g/dL *LOW* (05/01/24: AM) K [3.5-5.1 mmol/L] 4.6 mmol/L (05/01/24:28 AM) MCH [28-33 pg] 28.2 pg (05/02/24 6:04 AM) 27.8 pg *LOW* (05/01/24: AM) MCHC [32-36 g/dL] 33.5 g/dL (05/02/24 6:04 AM) 31.9 g/dL *LOW* (05/01/24 5:28 AM) MCV [81-96 fL] 84.4 fL (05/02/24 6:04 AM) 87.3 fL (7/10/24 5:28 AM) Na [136-145 mmol/L] 139 mmol/L (05/01/24 5:28 AM) Plts [150-350 K/uL] 192 K/uL (05/02/24 6:04 AM) 196 K/uL (05/01/24 5:28 AM) RBC [3.90-5.00 M/uL] 3.08 M/uL *LOW* (05/02/24 6:04 AM) 3.38 M/uL *LOW* (05/01/24 5:28 AM) WBC [4.0-10.4 K/uL] 6.84 K/uL (05/02/24 6:04 AM) 5.62 K/uL (05/01/24 5:28 AM) 1Result Comment: ADA recommendation for FASTING Serum/Plasma Glucose: Normal: 70-100 mg/dL Prediabetes: 100-125 mg/dL Diabetes: 126 mg/dL or higher Radiology Reports * Exam Date Time Procedure Performing Provider Status 04/30/24 3:59 PM XR Hip 2-3 Views w/AP Pelvis Left Precious Sorensen; Final Notes: (XR Hip 2-3 Views w/AP Pelvis Left) Reason For Exam: Hip Replacement Follow up, Post Op SYLVIA XR Hip 2-3 Views w/AP Pelvis Left EXAMINATION: XR Hip 2-3 Views w/AP Pelvis Left CLINICAL HISTORY: Hip Replacement Follow up, Post Op SYLVIA COMPARISON: Multiple previous studies, most recent a radiograph 02/15/2024 FINDINGS: AP view of the pelvis with crosstable lateral view of the left hip. Bilateral total hip arthroplasties. Postoperative air is noted about the left hip. No periprosthetic fracture. Normal bone mineralization. IMPRESSION: 1. Anticipated immediate postoperative changes of left total hip arthroplasty. 2. No evidence of hardware complication of the right total hip arthroplasty. Workstation ID: [id number] Final Dictated by:DO Berumen Dennis M Dictated DT/TM:04/30/2024 4:02 Signed by:DO Berumen Dennis M Signed (Electronic Signature):04/30/2024 4:01 p Vital Signs Most recent to oldest [Reference Range]: 1 2 3 Height 154.94 cm (04/30/24 8:21 AM) Patient Weight 109.77 kg (04/30/24 8:21 AM) Body Mass Index 45.73 kg/m2 (04/30/24 8:21 AM) Temperature [36.5-37.9 DegC] 36.2 DegC *LOW* (05/02/24 7:48 AM) 36.4 DegC *LOW* (05/02/24 4:43 AM) 36.2 DegC *LOW* (05/02/24 12:08 AM) Heart Rate 102 bpm (05/02/24 7:48 AM) 100 bpm (05/02/24 4:43 AM) 105 bpm (05/02/24 12:08 AM) Respiratory Rate 18 br/min (05/02/24 7:48 AM) 18 br/min (05/02/24 4:43 AM) 17 br/min (05/02/24 12:08 AM) Blood Pressure 115/67mmHg (05/02/24 7:48 AM) 112/53mmHg (05/02/24 4:43 AM) 107/51mmHg (05/02/24 12:08 AM) Mean Blood Pressure 82 mmHg (05/02/24 7:48 AM) 65 mmHg (05/02/24 4:43 AM) 67 mmHg (05/02/24 12:08 AM) Cuff Pulse Pressure 48 mmHg (05/02/24 7:48 AM) 59 mmHg (05/02/24 4:43 AM) 56 mmHg (05/02/24 12:08 AM) BP Location # 1 Left Arm, Non-invasive (05/02/24 7:48 AM) Left Arm (05/02/24 4:43 AM) Left Arm (05/02/24 12:08 AM) Social History Social History Type Response Smoking Status Never smoked cigaret odalis Sex Female Implantable Device List Procedure Provider Procedure Date Device Type Site Unknown Unknown 04/30/24 Unknown Unknown Device Identifier Serial Number Lot or Batch Number Manufacturing Date Expiration Date Distinct Identification Code MRI Safety Implantable Status Assigning Authority Unknown Unknown [id number] Unknown 07/31/28 Unknown Unknown Active Unk nown Unknown Unknown [id number] Unknown 06/23/28 Unknown Unknown Active Unkn own Unknown Unknown [id number] Unknown 03/27/25 Unknown Unknown Active Unkn own Unknown Unknown [id number] Unknown 09/13/30 Unknown Unknown Active Un known Unknown Unknown [id number] Unknown 11/28/28 Unknown Unknown Active Unkn own Procedure Provider Procedure Date Device Type Site Unknown Unknown 02/13/24 Unknown Unknown Device Identifier Serial Number Lot or Batch Number Manufacturing Date Expiration Date Distinct Identification Code MRI Safety Implantable Status Assigning Authority Unknown Unknown [id number] Unknown 12/24/28 Unknown Unknown Active Unkn own Unknown Unknown [id number] Unknown 07/21/28 Unknown Unknown Active Unk nown Unknown Unknown [id number] Unknown 08/02/28 Unknown Unknown Active Un known Unknown Unknown [id number] Unknown 09/07/30 Unknown Unknown Active Un known Unknown Unknown [id number] Unknown 12/28/27 Unknown Unknown Active Unkn own History and physical note * MD Lindquist Mark W: PERFORM Event Display: H&P Update Authored Date: [id number] SURGICAL HISTORY AND PHYSICAL UPDATE - NO CHANGE Name: CHICHI COTTON Patient Number: [id number] : 1960 Date of Service: 04/30/2024 Patient identity, procedure and procedure site were identified by me, the attending physician. I have personally seen and examined the patient. The History and Physical was reviewed, and there are nochanges in the patient's condition. I have confirmed that the necessity for the procedure is still p resent. Electronic Signature on File Electronically Reviewed/Signed by: Negrito Lindquist MD Author Signature Dt/Tm:04/30/2024 08:50 AM Division of Orthopaedics [facility] Surgical operation note * MD Lindquist Mark W: PERFORM Event Display: .Operative Report Authored Date: [id number] OPERATIVE REPORT Name: CHICHI COTTON Patient Number: [id number] : 1960 Date of Service: _ SURGEON: _Lexa HOUSE MOVER HELPER(s): _Candace PGY4, Bear PAC PREOPERATIVE DIAGNOSIS: _Osteoarthritis left hip POSTOPERATIVE DIAGNOSIS: _Same OPERATION PERFORMED: _Left total hip arthroplasty ANESTHESIA: _Spinal COMPLICATIONS: _None SPECIMENS: _Femoral head ESTIMATED BLOOD LOSS: _350 cc INDICATIONS: _Osteoarthritis left hip FINDINGS: _Same Implants: Ortho development legend acetabular shell 52 mm outside diameter, polyethylene neutral liner, ceramic femoral head 36 mm diameter with a +0 neck length, Entrada hip stem size 9 extended neck offset OPERATION: _ Patient was brought to the operating room, properly identified and placed on the operating table inthe supine position. Spinal anesthesia was administered. The left lower extremity was prepped and draped in sterile fashion. Lateral incision was made and the fascia char was incised longitudinally. The interval between the gluteus medius and tensor fascia was developed. Retractors were placed and t he anterior capsule was resected. Femoral neck was cut and the ball was removed. The acetabulum wasreamed to accommodate a 52 mm ingrowth shell. The shell was impacted into position with good fixation and a single screw was added for supplemental fixation. Trial liner was placed. Femur was then broached to accommodate a size 9 stem. With trials in place leg lengths appeared equal and the hip wasstable in all positions. Trials were all removed and final implants were impacted in position. Hip was again reduced and was stable. Wound was irrigated. Fascia char was repaired with #1 Vicryl suture. Skin was closed with 2-0 Vicryl and a running Monocryl suture. Sterile dressing was applied and the patient was recovered from anesthesia and transferred to the recovery in stable condition. I was present for the entire procedure but scrubbed out during the final stages of skin closure. I remained immediately available for the duration of the procedure. Electronic Signature on File Electronically Reviewed/Signed by: Negrito Lindquist MD Author Signature Dt/Tm:04/30/2024 11:57 AM Division of Orthopaedics [facility] Discharge instructions * ADARSH Edwards Leanne M: MODIFY, MODIFY, PERFORM ADARSH Edwards Leanne M: PERFORM, MODIFY ADARSH Edwards Leanne M: MODIFY AN Maloney Noreen: MODIFY, MODIFY AN Maloney Noreen: MODIFY Event Display: Patient Discharge Instructions Authored Date: [id number] CHICHI COTTON :1960 Visit Date:04/30/2024 Patient Discharge Instructions [facility] For medical concerns, call: . Date of Admission:04/30/2024 Date of Discharge:05/02/2024 Physician:MD Lexa, Negrito Young Service:Orthopaedic Surgery Discharge Disposition:home . Advance Directive:Living will, Health Care Power of Commercial Construction Estimator Reason for Hospitalization Osteoarthritis of left hip Your Diagnoses Osteoarthritis of left hip My Health Patient Portal: [facility] [employer] makes it easy for you to manage your health information online. My [facility] [employer] is a free service that provides you instant, secure access to your medical information anytime, anywhere. Sign in or set up your account today at [facility] hospitalLasso Media.[employer] Thank you for allowing us to assist you with your healthcare needs. If you need additional community resources, [facility] [employer] can help at https://www.pa211.org. 211 can assist you in connecting with social programs based on your unique needs and locations. 211 is an anonymous search that can help you locate resources for: Food, Housing, Transportation, Goods, Education and Healthcare. Medications DO NOT PRINT! (Discharge Medication Listis incomplete) Please complete Discharge Medication Reconciliation and refresh the Medication List section in the Discharge Instructions/Summary. Patient is enrolled in Rx-to-Go Program New medications will be delivered from [facility] to patient's room at discharge: Mon-Sun from 9AM-5 PM. Medications MUST be PICKED UP at [facility] if patient is discharged Mon-Sun after 5 PM or anytime on holidays. Please note, the [facility] closes at 8 PM on weekdays and 5:30 PM on Saturdays, Sundays, and holidays. What How Much When Why Instructions Next Dose Changed aspirin (aspirin 325 mg oral capsule) 1 cap by mouth 2 times daily Duration: 30 Days you were given 40 MG lovenox subcutaneously today at 8AM Changed oxyCODONE (oxyCODONE 5 mg oral tablet) 5 Milligram by mouth Every 4 hours as needed for pain - moderate (4-6) Pickup at [facility] [place] you were last given 10 MG oxycodone at9:30 AM today 05/02/2024 Changed traMADol (Ultram 50 mg oral tablet) 1 tab(s) by mouth Every 8 hours Pickup at [facility] [place] you last took50 mg today 05/02/2024 at 6AM Unchanged acetaminophen (Tylenol 500 mg oral tablet) 2 tab(s) by mouth Every 8 hours you last took 1000 mg today 05/02/2024 at 6AM Unchanged cefadroxil (Duricef 500 mg oral capsule) 1 cap by mouth Every 12 hours Duration: 14 Days Pickup at [facility] [place] Unchanged cholecalciferol (Vitamin D3) 1,000 International Unit by mouth Once daily you were given 25 mcg today at 8AM Unchanged diabetes supplies (One Touch Finepoint (25G) Lancets) See instructions home glucose testing daily E11.9 Unchanged diabetes supplies (One Touch Verio Glucose Monitor) See instructions Use to check blood sugar daily Unchanged diabetes supplies (One Touch Verio Test Strips) See instructions use to check blood sugar daily Unchanged fluorouracil topical (Efudex 5% topical cream) 1 cathi topically 2 times daily AK (actinic keratosis) Milial cyst Hemangioma of skin apply to right buttock for actinic keratosis for 4 weeks and then stop Unchanged levothyroxine (levothyroxine 50 mcg (0.05 mg) oral tablet) See instructions TAKE 1 TABLET BY MOUTH 4 DAYS A WEEK AND 1 AND 1/ 2 TABLETS 3 DAYS A WEEK you last took 50 mcg today 05/02/2024 at 6AM Unchanged lidocaine topical (lidocaine topical 5% patch) See instructions APPY 1 PATCH FOR 12 HOURS TO AFFECTED AREA NEEDED FOR PAIN. REMOVE PATHCH AFTER 12 HOURS Unchanged loratadine (Claritin) 10 Milligram Once daily PRN Unchanged multivitamin (Vitamin B Complex oral capsule) 1 cap by mouth Once daily Unchanged naloxone (Narcan 4 mg/ 0.1 mL nasal spray) 4 Milligram in the nose Once may repeat every 2 to 3 minutes until patient responds Unchanged omega-3 polyunsaturated fatty acids (Daniella Krill Oil [place]-3 oral tablet, chewable) 1 cap Once daily 1 Unknown, Unknown Unchanged zinc sulfate (Zinc) 1 tab(s) Once daily Pharmacy Information [facility] [place]: [facility] [phone] What How Much When Comments Stop Taking naproxen (Aleve 220 mg oral tablet) 2 tab(s) by mouth Every 12 hours as needed for as needed for arthritis Stop Taking nitrofurantoin (Macrobid 100 mg oral capsule) 1 cap by mouth 2 times daily Duration: 5 Days Allergies celecoxib (Moderate)swelling gabapentin (Moderate)Blurry Vision hydrOXYzine (Moderate)HYPERACTIVE, hyperactive levoFLOXacin (Mild)RASH morphine (Mild)SOB - Shortness of breath Allergy (Diphenhydramine HCl)Propensity to adverse reaction Levaquinrash, per pt IV Pharbedryl?, Unknown? Vistaril?, unknown predniSONE?, Unknown quinolones (fluoroquinolone antibiotics)rash sulfa drugsrash traMADoldisoriented What to do next Instructions From Your Doctor General Instructions: Wound care: We will remove the Aquacel dressing at your first postop appointment, unless otherwise directed. Please leave in place until that time. Once the Aquacel dressing has been removed you may cover your incision with dry gauze and tape as needed. You may shower with the Aquacel in place (do net let water hit the dressing directly). Do not soak in a bathtub, hot tub, or pool until your surgeon tells you that you may do so. Once Aquacel dressing is removed, do not get an incision with amarilis wet. Do not remove the amarilis. If you do shower, please cover the wound to keep dry. Alexandro Hose: Wear the alexandro hose/stockings for the next two weeks as tolerated. They can be removed at night whilein bed, and put back on in the morning. Pain Medicine Tylenol 1000mg three times per day Tramadol 50mg three times per day A narcotic has been prescribed: You will take this medication every 4-8 hours as needed for severe painnot relieved by the other pain medications. Do not drive while on pain medication. Please discontinue the narcotic medication as soon as possible due to adverse effects which can include: sedation, respiratory depression, constipation, and dependence. Please take over the counter stool softeners while taking pain medication to prevent constipation If you notice you are running low on narcotic medication please call theoffice at least 48 hours prior to running out. The clinic will need that much time to get you more medications especially if on a Monday Anticoagulation: Aspirin 325mgtwice daily for 30 days Ask your physician prior to taking Non-steroidal Anti-inflammatories while on this medication. Antibiotic: [id number] days If you notice the following symptoms Call 911 if you experience shortness of breath or chest pain. Please call the orthopedic clinic at [phone] during business hoursif you experience the followin) Redness aroundincision 2) Drainage around the incision 3) Fever greater than 101.5 F 4) Pain not controlled by your medications For after hours please call the resident principal consulting engineer line at [phone] Contact the [facility] Careline at . If unable to contact your physician and you feel it is an emergency, go to the nearest Emergency Room or call 911 Diet Instructions Resume a healthy diet at home to encourage healing. Stay well hydrated by drinking plenty of water or drinks that contain electrolytes/vitamins. Activity Instructions Weight Bearing Leg, Left, Weight Bearing As Tolerated ACTIVITY You may bear weightas tolerated on your operative leg You should do the exercises as outlined by physical therapy at least twice daily for the next 6 weeks. Walking will also abrasive mixer helper in your recovery. Slowly increase your distance daily. Follow-Up Appointments Scheduled Follow-Up Appointments Date/Time:Provider/Resource: Apr 10:30 Ericka De Los Santos Location/Instructions:[facility], [address] [place] [address], [place] [phone] Date/Time:Provider/Resource: Apr 10:00 Ericka De Los Santos Location/Instructions:[facility], [address] [place] [address], [address], [place] [phone] Date/Time:Provider/Resource: Apr 11:00 POLLY Diggs Cory D Location/Instructions:Please arrive 15 minutes prior to your appointment time with [facility], [address] [place] [address], [facility] 112, [facility] [address] Date/Time:Provider/Resource: Apr 10:30 Beck Oakes PTA, Tanya L Location/Instructions:[facility], [facility], [address] [place] [address], [facility] 112, [place], PO[place] [phone] Date/Time:Provider/Resource: May 10:00 MIHIR Mcleod Briany Location/Instructions:[facility], [facility], [address] [place] [address], [place], [place] [phone] Date/Time:Provider/Resource: May 10:00 Beck Oakes PTA, Tanya L Location/Instructions:[facility], [address] [place] [address], [place] [phone] Date/Time:Provider/Resource: May 10:00 Ericka De Los Santos Location/Instructions:[facility], [address] [place] [address] 112, [place], [place] [phone] Date/Time:Provider/Resource: May 10:00 Ericka De Los Santos Location/Instructions:[facility], [address] [place] [address], [place], [place] [phone] Date/Time:Provider/Resource: May 12:30 pmDede, Ericka E Location/Instructions:[facility], [facility], [address] [place] [address], [facility] 112, [place], [place] [phone] Date/Time:Provider/Resource: May 10:00 amHross Ericka E Location/Instructions:[facility], [facility], [address] [place] [address], [facility] 112, [place], [place] [phone] Date/Time:Provider/Resource: May 09:55 MD Ace Mark W Location/Instructions:[facility], [address], [address], [address], [facility] [address] Date/Time:Provider/Resource: Jul 08:15 POLLY Diggs Cory D Location/Instructions:Please arrive 15 minutes prior to your appointment time with [facility], [address] [facility], [address], [facility] [address] Date/Time:Provider/Resource: Jul 02:30 pmMD Lora Gregory G Location/Instructions:Please arrive 15 minutes prior to your appointment time with [facility], [facility], [place] [address], [place] [address] The Following Services Have Been Arranged for You No Post-Acute Placement(s) Listed No Post-Acute Service(s) Listed Tests Pending None Procedures Performed Total Hip Arthroplasty, Left 04/30/2024 Special Instructions Common Emergency Awareness Tips Call 911 immediately if: experiencing any of the warning signs and symptoms of stroke: B.E. F.A.S.T. Balance: is there trouble with walking or coordination Eyes: is there double vision or visual loss Face: Smile, do both sides of face move equally Arm: Raise arms, do both arms move equally Speech: Is speech slurred or inappropriate Time: Time is critical, call 911 immediately Heart Attack Signs Chest discomfort: Most heart attacks involve discomfort in the center of the chest and lasts more than a few minutes, or goes away and comes back. It can feel like uncomfortable pressure, squeezing, fullness or pain. Discomfort in upper body: Symptoms can include pain or discomfort in one or both arms, back, neck, jaw or stomach. Shortness of breath: With or without discomfort. Other signs: Breaking out in a cold sweat, nausea, or lightheaded. Remember, MINUTES DO MATTER. If you experience any of these heart attack warning signs, call to get immediate medical attention! Note * ADARSH Davis, Tima Curtis: PERFORM Event Display: Brief Operative Note Authored Date: BRIEF OPERATIVE NOTE Name: CHICHI COTTON Patient Number: [id number] : 1960 Date of Service: 04/30/2024 Pre-op Diagnosis: Left Hip DJD Post-op Diagnosis: Same Procedure: Left SYLVIA Surgeon: Lexa Assistants: Ryan Maria PA-C Anesthesia: Spinal Estimated Blood Loss: 350 _ Less than 50ml Drains: none Fluids: 1200 ml Urinary Output: no post op cath. Condition: Stable Complications: none Specimen: Left Fem. Head _ None Findings: DJD Left Hip Check one _ Pharmacologic VTE prophylaxis not indicated x Standard VTE prophylactic regimen ordered _ Pharmacologic VTE prophylaxis contraindicated due to increased risk of intraoperative and / or postoperative bleeding Check one _ No antibiotics indicated x Standard prophylactic antibiotic regimen ordered _ Antibiotic regimen changed due to concern for infection Weight bearing- WBAT LLE Physical Therapy- ordered DVT prophylaxis- lovenox, will be dc on asa 325mg BID Antibiotics- periop abx ordered Pain control- PO and IV breakthrough, Drain- none Imaging- postop XR ordered Dressing- Aquacel Labs- AM CBC and BMP pending SSI Home Medications- restarted Diet/GI- CC diet, bowel regimen Dispo- floor, OPER status Electronic Signature on File Electronically Reviewed/Signed by: Tima Davis PA-C Author Signature Dt/Tm:04/30/2024 12:42 PM Division of Orthopaedics Electronically Reviewed/Signed by: Negrito Lindquist MD Cosigner Signature Dt/Tm: 04/30/2024 01:12 PM Division of Orthopaedics WRB Patient Care team information Care Team Personnel Name: MD Spence Jonathan D Position: Physician - Family Med Member Role: Lifetime Relationship Address: Address: [address] [place] [address] Name: MD Yanes Christopher Position: Physician - Family Med Member Role: Primary Care Provider Address: Address: [address] [place] [address] Name: Torsten Newsome Ann Position: Pharmacist Member Role: Pharmacy - Lifetime Name: Torsten Stevens Brittani Position: Pharmacist Member Role: Pharmacy - Lifetime Care Team Related Persons Name: ISABELLE MCKEON Address: [place] Address: home [address] [place], [place] [phone] Name: GERMAN COTTON Address: [place] Address: home [address] [facility] [facility] [place] [phone] Name: CARLITOS COTTON Address: home [address] [facility] [place] [place] [id number]
--- NOTE | 2024-06-05 23:21 | Magnetic Resonance Report ---
Exam(s): MRI HEAD Without Contrast EXAM: MR Head Without Intravenous Contrast CLINICAL HISTORY: Reason for exam: L facial numbness, LUE/LLE weakness. CVA/TIA eval. TECHNIQUE: Magnetic resonance images of the head/brain without intravenous contrast in multiple planes. COMPARISON: CT head 06/05/24 FINDINGS: Brain: Unremarkable. No diffusion restriction to suggest acute cerebral ischemia. No acute intracranial hemorrhage. No mass-effect or shift. Normal proximal intracranial flow voids. Normal parenchymal volume. Mild patchy chronic small vessel ischemic change. Ventricles: Unremarkable. No hydrocephalus. Bones/joints: Unremarkable. No acute fracture. Sinuses: Unremarkable as visualized. Mastoid air cells: Effusions at the mastoid tips bilaterally. Orbits: Unremarkable as visualized. IMPRESSION: No acute findings in the head/brain. Electronically signed by: Qasim Villegas M.D. 06/05/24 23:20 PM
[2024-06-06] MEDS: LEVOTHYROXINE SODIUM 50 MCG TABLET PO SCH (06:05)
[2024-06-06 07:55] LABS: Basophils # (auto) 0.04 K/uL (0.00-0.20); Basophils % (auto) 1.1 %; Eosinophils # (auto) 0.23 K/uL (0.00-0.50); Eosinophils % (auto) 6.5 %; Hematocrit (blood only) 31.9 % (37.0-47.0); Hemoglobin 9.8 g/dl (12.0-16.0); Lymphocytes # (auto) 1.23 K/uL (1.20-3.40); Lymphocytes % (auto) 34.6 %; Mean Corpuscular Hemoglobin 25.5 pg (25.0-34.0); Mean Corpuscular Hgb Conc 30.7 g/dL (32.0-36.0); Mean Corpuscular Volume 83.1 fL (80.0-100.0); Mean Platelet Volume 9.1 fL (9.4-12.4); Monocytes # (auto) 0.29 K/uL (0.11-0.59); Monocytes % (auto) 8.1 %; Neutrophils # (auto) 1.77 K/uL (1.40-6.50); Neutrophils % (auto) 49.7 %; Platelet Count 206 K/uL (130-400); RDW Coefficient of Variation 15.4 % (11.5-14.5); RDW Standard Deviation 46.5 fL (36.4-46.3); Red Blood Count 3.84 M/uL (4.20-5.40); White Blood Count 3.56 K/ul (4.8-10.8)
[2024-06-06 08:20] LABS: BUN Creatinine Ratio 21.1 (10-20); Calcium 9.2 mg/dl (8.6-10.3); Chol HDL Ratio 4.7 (0-5); Creatinine Clr Calc Pharmacy 116.8 ml/min; Est GFR (African American) 115.2 ml/min; Est GFR (Non-African American) 99.4 ml/min; Potassium 4.3 mmol/L (3.5-5.1)
[2024-06-06 08:22] LABS: Estimated Average Glucose 91 mg/dl; Hemoglobin A1C 4.8 % (4.5-5.6)
[2024-06-06] MEDS: ENOXAPARIN INJ 40 MG/0.4 ML SYR SQ SCH (08:32)
[2024-06-06] MEDS: ASPIRIN 81 MG ECTAB PO SCH (08:33)
[2024-06-06] MEDS: ATORVASTATIN 40 MG TAB PO SCH (08:33)
[2024-06-06] MEDS: clonazePAM 0.25 MG OD TAB PO PRN (08:41)
--- NOTE | 2024-06-06 11:36 | XCELERA ---
[id number]
[2024-06-06] MEDS: FERROUS SULFATE 325 MG TAB PO SCH (14:18)
--- NOTE | 2024-06-06 14:26 | Hospitalist Progress Note ---
Date of Service June 06, 2024 Assessment & Plan (1) Arm paresthesia, left: Plan: Facial/left-sided paresthesias CThead, CTAhead/neck without acute finding MRI negative Echocardiogram negative Patient does have a history of cervical disc disease with a plate in place, and lumbosacral lumbar disease and stenosis. Extremity symptoms could be related to this however this does not explain her facial numbness Started on aspirin 81 mg daily Possibly TIA Will discharge on baby aspirin and Lipitor Lipid panel normal A1c 4.8 Monitor on telemetry (2) Spinal stenosis of lumbar region: Plan: As noted (3) Hypothyroidism: Plan: Continue Synthroid (4) Pain of left calf: Plan: Patient complains of left calf pain Ordered venous ultrasound to rule out DVT Plan DVT prophylaxis: Lovenox Diet: Heart healthy CODE STATUS: Full code Likely discharge tomorrow 06/07 Admission and Anticipated Discharge Date Admission Date: June 05, 2024 Subjective Patient says that her left facial numbness and left arm numbness have resolved. She complains of left calf pain. Review of Systems Review of Systems: All systems reviewed & are unremarkable except as noted in Subjective Physical Exam Physical Exam: General: Awake, conversant Heart: S1, S2/regular rate and rhythm, no murmur rubs or gallops Lungs: Clear to auscultation bilaterally. Normal effort Abdomen: Soft/nontender/nondistended. No hepatosplenomegaly Extremities: No clubbing/cyanosis. No edema Behavior: Appropriate, cooperative Results & Data Results & Data Vital Signs (Past 12 Hours) Vital Signs Temp Pulse Resp BP Pulse Ox O2 Del Method 06/06/24 11:59 36.8 C 81 18 108/72 99 Room Air 06/06/24 08:05 36.9 C 74 16 103/70 99 Room Air 06/06/24 02:37 36.9 C 81 18 119/77 98 Room Air PG Care Time/CCT Total # of Minutes Spent Total Time Spent with Patient: Total time spent is greater than 50% in coordination of care (as documented) at patient's floor/unit and/or counseling patient: Coding Level of Care Code 42715 SUB INP/OBS CARE 2/35MIN Diagnoses Arm paresthesia, left R20.2 Spinal stenosis of lumbar region M48.061 Hypothyroidism E03.9 Pain of left calf M79.662
--- NOTE | 2024-06-06 15:26 | Ultrasound Report ---
LEFT LOWER EXTREMITY VENOUS DOPPLER CLINICAL HISTORY: Left calf pain and swelling r/o DVT COMPARISON STUDY: Left lower extremity venous Doppler ultrasound April 16, 2021. TECHNIQUE: Sonography of the deep venous system of the left lower extremity was performed. Compressi on and augmentation were evaluated. FINDINGS: The left common femoral, superficial femoral and popliteal veins were compressible. Augmen tation was normal. Flow was shown within the deep calf vessels although calf vessels are partially ob scured. IMPRESSION: Suboptimal evaluation of the calf vessels but no evidence of deep venous thrombus within the left lower extremity. ACT 112: Negative or not required by law. Electronically signed by: Momo Dumont M.D. 06/06/2024 3:24 PM
[2024-06-06] MEDS: KETOROLAC TROMETHAMINE 15 MG/ML VIAL IV ONE (22:36)
[2024-06-07] MEDS: ACETAMINOPHEN 325 MG TAB PO PRN (05:40)
[2024-06-07 06:26] LABS: Basophils # (auto) 0.03 K/uL (0.00-0.20); Basophils % (auto) 0.8 %; Eosinophils # (auto) 0.25 K/uL (0.00-0.50); Eosinophils % (auto) 6.4 %; Hematocrit (blood only) 31.9 % (37.0-47.0); Hemoglobin 9.8 g/dl (12.0-16.0); Lymphocytes # (auto) 1.35 K/uL (1.20-3.40); Lymphocytes % (auto) 34.7 %; Mean Corpuscular Hemoglobin 25.9 pg (25.0-34.0); Mean Corpuscular Hgb Conc 30.7 g/dL (32.0-36.0); Mean Corpuscular Volume 84.2 fL (80.0-100.0); Mean Platelet Volume 8.9 fL (9.4-12.4); Monocytes # (auto) 0.31 K/uL (0.11-0.59); Neutrophils # (auto) 1.95 K/uL (1.40-6.50); Neutrophils % (auto) 50.1 %; Platelet Count 206 K/uL (130-400); RDW Coefficient of Variation 15.3 % (11.5-14.5); RDW Standard Deviation 46.8 fL (36.4-46.3); Red Blood Count 3.79 M/uL (4.20-5.40); White Blood Count 3.89 K/ul (4.8-10.8)
[2024-06-07 06:40] LABS: BUN Creatinine Ratio 24.6 (10-20); Creatinine Clr Calc Pharmacy 96.6 ml/min; Est GFR (African American) 108.1 ml/min; Est GFR (Non-African American) 93.3 ml/min
[2024-06-07] MEDS: LEVOTHYROXINE SODIUM 75 MCG TABLET PO SCH (06:49)
[2024-06-07 08:28] VITALS: BP 108/63; PULSE 75; RESP 17; TEMP 98.6; O2SAT 96
--- NOTE | 2024-06-07 09:28 | Discharge Summary ---
Date of Service June 07, 2024 Admission HPI Per Admitting Provider Beryl is a 63-year-old female with a past medical history of left hip replacement, anxiety, positive AMA, chronic lumbar back pain with radiculopathy, chronic cervical dysfunction s/p decompression and plate placement who presents for left-sided facial and left arm numbness/tingling, slight left upper extremity weakness, and limited left lower extremity strength exam due to recent hip replacement. She is recommended for evaluation of potential strokelike symptoms. Patient also notes diffuse myalgias and with a diffusely positive review of symptoms at time of admission, endorses a significant anxiety compo nent. Beryl notes that she had her left hip replaced about 1 month ago. She has not had fevers, has felt cold at night and had some chills recently. Her hip is painful but has been trying to stay active. She has not noticed any erythema, warmth, increased tenderness, or increased swelling at the hip although hip swelling since surgery persists and is gradually decreasing. She noticed last night and today that she has had some numbness in her left arm and left face which is atypical for her. 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 No dysarthria or aphasia. No headache. No vision change. Denies tobacco/alcohol use. She had been taking aspirin 325 mg twice a day for DVT prophylaxis for 1 month, she has not taken this since Monday as she finished her 1 month course. Is not on aspirin or Plavix normally. No calf pain. No inspiratory pain. Denies shortness of breath. Reexamination she notes that she has had some left sided chest discomfort, this is directly reproducible and worsened by palpation of the overlying rib. Medical History: Reviewed Medications: Reviewed Surgical History: Reviewed Family history: Reviewed Allergies: Reviewed Social History: Reviewed Code Status: Full Admission Exam Per Admitting Provider General: A&Ox3. NAD. Cooperative. HEENT: Atraumatic, normocephalic. Pupils equal and reactive to light and accommodation Pulm: CTAB A&P. -wheezes, -rales, -rhonchi. Symmetrical chest rise. No increased work of breathing. No respiratory distress. Cardiac: RRR, +sm. Radial pulses intact and symmetrical. Abdominal: Nontender, nondistended, soft. BS present. Neuro/extremities: Left hip with postoperative surgical incision well-healed, no erythema or dehiscence. No fluctuance appreciated. Sensation of soft touch is intact in the feet, legs, and hands bilaterally although slightly qualitatively diminished in the left hand. Sensation intact in V1/V2/V3 of the face although patient endorses some qualitative decrease on the left face. Tongue protrudes midline. Shop Tech strength 5/5 bilaterally. No pronator drift. Hfhygk-fb-mthh intact without dysmetria. Principal Diagnosis Possible TIA versus cervical radiculopathy Discharge Exam General: Awake, conversant Heart: S1, S2/regular rate and rhythm, no murmur rubs or gallops Lungs: Clear to auscultation bilaterally. Normal effort Abdomen: Soft/nontender/nondistended. No hepatosplenomegaly Extremities: No clubbing/cyanosis. No edema Behavior: Appropriate, cooperative Discharge Data Allergies Allergy/AdvReac Type Severity Reaction Status Date / Time morphine Allergy Severe SHORT OF Verified 05/03/24 18:28 BREATH celecoxib [From Celebrex] Allergy Intermediate swelling Verified 05/03/24 18:28 gabapentin Allergy Intermediate Blurry Verified 05/03/24 18:28 Vision Sulfa (Sulfonamide Allergy Intermediate Rash Verified 05/03/24 18:28 Antibiotics) levofloxacin Allergy Mild RASH WITH Verified 05/03/24 18:28 IV MEDICATION Quinolones Allergy Mild Rash Verified 05/03/24 18:28 wheat Allergy Mild GI Verified 05/03/24 18:28 SENSITIVITY diphenhydramine AdvReac Intermediate "KEEPS ME Verified 05/03/24 18:28 AWAKE INSTEAD OF MAKING ME SLEEPY" hydroxyzine AdvReac Intermediate HYPERACTIVE Verified 05/03/24 18:28 prednisone AdvReac Intermediate PSYCHOTIC Verified 05/03/24 18:28 COMPLICATIONS tramadol AdvReac Mild "OUT OF Verified 06/05/24 18:49 BODY"/DISORIENTED Consultations 06/05/24 16:46 ED Decision to Admit Stat Ordered Studies 06/05/24 12:59 CT angio head w con Stat CT angio neck with con Stat CT head/brain wo con Stat 06/05/24 18:35 MR brain wo con Routine 06/06/24 11:29 US leg [US venous doppler LE LT] Urgent Hospital Course (1) Arm paresthesia, left: Facial/left-sided paresthesias CThead, CTAhead/neck without acute finding MRI negative Echocardiogram negative Patient does have a history of cervical disc disease with a plate in place, and lumbosacral lumbar disease and stenosis. Extremity symptoms could be related to this however this does not explain her facial numbness Started on aspirin 81 mg daily Possibly TIA Will discharge on baby aspirin and Lipitor Lipid panel normal A1c 4.8 Monitor on telemetry (2) Spinal stenosis of lumbar region: As noted (3) Hypothyroidism: Continue Synthroid (4) Pain of left calf: Patient complains of left calf pain Venous duplex ultrasound negative for DVT Plan Discharge to home today Total Time Total Time Spent Total Time Spent (In Minutes): 35 Discharge Plan Discharge Items Patient Disposition: Home - Self-Care Reason For Visit: L FACIAL NUMBNESS, ?LUE/LLE PARESTHESIA EVAL Discharge Diagnosis: Possible TIA Activity: Resume your previous activity Non-emergency contact: Primary Care Provider Call non-emergency contact if: you have any medication questions and your symptoms worsen Follow-up/Referrals: Goyo Yanes MD [Primary Care Provider] - Diet: Heart Healthy Addtl Attending Provider Instructions: Advised to follow-up with PCP in 1 week Pending Studies at Discharge: No Stand-Alone Forms: My [facility] [employer], Medications to Prevent Stroke Medications and DC Order Prescriptions: New atorvastatin 40 mg Tablet 40 mg PO QAM 30 Days Qty: 30 0RF aspirin 81 mg Tablet,Delayed Release (Dr/Ec) 81 mg PO QAM 30 Days Qty: 30 0RF Continued cholecalciferol (vitamin D3) [Vitamin D3] 25 mcg (1,000 unit) capsule 1,000 units PO QAM vitamin B complex Capsule 1 cap PO QAM acetaminophen 500 mg Tablet 1,000 mg PO Q8H PRN (Reason: Pain) euimf-pd-1-psy-aga-jzzvptd-ast [krill oil] [id number],038-321-23-80 mg Capsule 1 cap PO DAILY levothyroxine 50 mcg tablet 50 mcg PO UD Rx Instructions: TAKE ONE TABLET BY MOUTH 4 DAYS A WEEK AND ONE AND ONE-HALF TABLETS 3 DAYS A WEEK tramadol 50 mg tablet 50 mg PO Q8H PRN (Reason: Pain) loratadine [Claritin] 10 mg Tablet 10 mg PO DAILY PRN (Reason: Congestion) zinc sulfate 50 mg zinc (220 mg) Capsule 50 mg PO DAILY ferrous sulfate 325 mg (65 mg iron) Tablet,Delayed Release (Dr/Ec) 325 mg PO QAM 30 Days Qty: 30 0RF clonazepam 1 tab PO DIRECTED PRN (Reason: Other) Rx Instructions: Per patient, medication was prescribed today but hasnt started/picked up. Unknown dose, no fill history. Discharge Orders: Discharge Order (Routine); Ordered 06/07/24 Ordered By: Charlotte Sanchez Admission Data Admit Date/Time: 06/05/24 17:08 Attending Provider: Charlotte Sanchez Admit Provider: Jamel Higuera Primary Care Provider: Goyo Yanes Other Providers: Jamel Higuera Other Interventions: Discharge Summary Assessment (RN) Last Done: 06/07/24 12:40
--- NOTE | 2024-06-07 09:42 | Pharmacy Report ---
- Date of Service June 07, 2024 - Pharmacy CVA/TIA Medication Review Medications to Prevent Stroke handout has been added to the patients discharge packet. Antiplatelet(s) * Aspirin 81 mg PO once daily Cholesterol * High intensity statin: atorvastatin 40 mg PO once daily DVT Prophylaxis * Enoxaparin SQ 40 mg once daily Therapeutic Anticoagulation * No history of Afib/Aflutter noted Type 2 Diabetes * Patient does not have T2DM
[2024-06-07] MEDS: STROKE PATIENT DISCHARGE STA (12:40)
--- NOTE | 2024-06-10 09:30 | Pharmacy Report ---
Pharmacist Stroke Counseling - Date of Service June 10, 2024 - Scope: Pharmacy has been consulted to provide medication discharge counseling for this patient admitted with transient ischemic attack as per the Pharmacist Discharge Counseling for Stroke Patients Protocol. - Medications on Discharge: Home Medications Medication Instructions Recorded Confirmed vitamin B complex 1 cap PO QAM 07/17/18 06/05/24 cholecalciferol (vitamin D3) 25 1,000 units PO QAM 06/01/20 06/05/24 mcg (1,000 unit) capsule (Vitamin D3) acetaminophen 500 mg tablet 1,000 mg PO Q8H PRN Pain 04/24/23 06/05/24 krill 1,000 mg-omega-3 170 mg-dha 1 cap PO DAILY 10/06/23 06/05/24 50 mg-epa 80 uu-phqnaq-pxqzz capsule (krill oil) levothyroxine 50 mcg tablet 50 mcg PO UD 12/25/23 06/05/24 loratadine 10 mg tablet (Claritin) 10 mg PO DAILY PRN Congestion 05/03/24 06/05/24 tramadol 50 mg tablet 50 mg PO Q8H PRN Pain 05/03/24 06/05/24 zinc sulfate 50 mg zinc (220 mg) 50 mg PO DAILY 05/03/24 06/05/24 capsule clonazepam 1 tab PO DIRECTED PRN Other 06/05/24 06/05/24 New Rx's Medication Instructions Recorded aspirin 81 mg tablet,delayed 81 mg PO QAM 30 days #30 tabs 06/07/24 release atorvastatin 40 mg tablet 40 mg PO QAM 1 month #30 tabs 06/07/24 - Action: The above medications, specifically ones for stroke treatment/prophylaxis, have been reviewed in detail with the patient and/or patient sales representative door to door(s) prior to discharge. This includes indication, common adverse reactions, drug interactions, and medication administration. Medication counseling has been employed using the teach-back method to ensure understanding. - Outcome: The patient and/or patient sales representative door to door(s) have demonstrated understanding of the medications. Additional comments: Spoke with patient about new start aspirin and atorvastatin. Thank you for allowing pharmacy to be involved in the care of this patient. Please call [phone] with any additional questions
== END 2024-06-07 15:00 | disposition home or self-care (01) ==
LOC: 4W 12:42 → ED 12:42 → SUATTDRO 17:08 → 4W 18:16

== ENCOUNTER 2024-10-28 14:07 | Observation (INO) ==
--- NOTE | 2024-10-28 14:44 | Emergency Department Note ---
History of Present Illness General Chief complaint: Back Injury/Pain Stated complaint: PAIN & NUMBNESS IN LUMBAR, DOWN GROIN AND THIGHS Time Seen by Provider: 10/28/24 14:35 History of Present Illness Maximum Pain Intensity: 7 This is a 64-year-old female that presents to the emergency department via private vehicle with complaints of "low back pain". The patient notes that she has a history of low back pain however over the past few days notes progressively worsening pain to the bilateral low back that wraps around the hips into the inner groin/thigh area. She does note some numbness to the upper thigh region and a burning/cramping sensation in the low back and thighs. She denies any trauma, injury, fevers, chills, vomiting, abdominal pain. There is no urinary incontinence. She does feel like the legs have progressively weakened. She does have associated nausea. History of L-spine surgery in 2018 here. Home Medications Medication Instructions Recorded Confirmed Type vitamin B complex 1 cap PO QAM 07/17/18 10/28/24 History cholecalciferol (vitamin D3) 25 1,000 units PO QAM 06/01/20 10/28/24 History mcg (1,000 unit) capsule (Vitamin D3) acetaminophen 500 mg tablet 1,000 mg PO Q8H PRN Pain 04/24/23 10/28/24 History krill 1,000 mg-omega-3 170 mg-dha 1 cap PO DAILY 10/06/23 10/28/24 History 50 mg-epa 80 ev-enhopz-jenrj capsule (krill oil) levothyroxine 50 mcg tablet 50 mcg PO UD 12/25/23 10/28/24 History loratadine 10 mg tablet (Claritin) 10 mg PO DAILY PRN Congestion 05/03/24 10/28/24 History clonazepam 1 tab PO DIRECTED PRN Other 06/05/24 10/28/24 History Aspir-81 81 mg PO DAILY 10/28/24 10/28/24 History Allergies Allergy/AdvReac Type Severity Reaction Status Date / Time morphine Allergy Severe SHORT OF Verified 05/03/24 18:28 BREATH celecoxib [From Celebrex] Allergy Intermediate swelling Verified 05/03/24 18:28 gabapentin Allergy Intermediate Blurry Verified 05/03/24 18:28 Vision Sulfa (Sulfonamide Allergy Intermediate Rash Verified 05/03/24 18:28 Antibiotics) levofloxacin Allergy Mild RASH WITH Verified 05/03/24 18:28 IV MEDICATION Quinolones Allergy Mild Rash Verified 05/03/24 18:28 wheat Allergy Mild GI Verified 05/03/24 18:28 SENSITIVITY diphenhydramine AdvReac Intermediate "KEEPS ME Verified 05/03/24 18:28 AWAKE INSTEAD OF MAKING ME SLEEPY" hydroxyzine AdvReac Intermediate HYPERACTIVE Verified 05/03/24 18:28 prednisone AdvReac Intermediate PSYCHOTIC Verified 05/03/24 18:28 COMPLICATIONS tramadol AdvReac Mild "OUT OF Verified 06/05/24 18:49 BODY"/DISORIENTED Past Med/Surg History Problem List (Updated 10/28/24 @ 23:43 by Bruno Dong PA-C) Cervical radiculopathy, chronic (Acute) Cervical radiculopathy Pain of left calf Arm paresthesia, left (Acute) LUE weakness (Acute) Hip pain Ambulatory dysfunction (Acute) Sinus tachycardia (Acute) Spinal stenosis of lumbar region (Acute) Intractable back pain (Acute) Osteoarthritis of right hip (Acute) Lumbar back pain with radiculopathy affecting right lower extremity (Acute) Right leg pain Lipedema Fatty infiltration of liver Dyslipidemia Prediabetes Osteoarthritis of right hip Sacroiliac joint pain Postlaminectomy syndrome of lumbosacral region Right leg weakness Migraine (Chronic) Morbid obesity (Chronic) Neurogenic claudication due to lumbar spinal stenosis Metabolic syndrome Pulmonary embolism Sensorineural hearing loss (SNHL) of both ears 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 SINGLE FLARE 2012. Anxiety Surgical History Hx of arthroscopy of left knee Hx of spinal surgery History of right knee joint replacement H/O bilateral salpingo-oophorectomy History of carpal tunnel release RT/LEFT History of bilateral tubal ligation [place] teeth removed History of myringotomy History of esophagogastroduodenoscopy (EGD) History of breast biopsy R BREAST-BENIGN History of section X4 History of colonoscopy History of appendectomy History of bronchoscopy TO DX SARCODOSIS 2012 S/P lumbar spinal fusion S/P cervical spinal fusion GOOD ROM S/P partial hysterectomy Family History Brother Diabetes Colorectal cancer Mother Diabetes Stomach cancer Sarcoidosis Lymphoma Father Coronary heart disease Other Cancer Heart disease Hypertension No family history of adverse response to anesthesia No family history of bleeding disorder Social History Smoking Status: Never smoker Second Hand Exposure: No; Do You Dip or Chew Tobacco: No; Hx Alcohol Use: No Hx Substance Use: No Preferred Language: Syriac Communication Ability: Effective Visual Impairment: No Limitations Grounds Maintenance Manager Required: No Beliefs That Will Affect Care: Mosque Mosque Beliefs: Uatsdin marital status: Current Living Situation: Spouse Current Living Situation Comment: Also son and niece intermittently. Other Information That Helps Us Care for You: No Feels Safe at Home: Yes Safety Concerns: Feels Safe At This Time Assistive Devices: Glasses Review of Systems A total of 10 systems reviewed and were otherwise negative Physical Exam Vital Signs Vital Signs - 24 hr 10/28/24 14:12 10/28/24 16:13 10/28/24 16:14 Temperature 36.6 C Temperature Source Oral Pulse Rate 102 H 84 Pulse Rate [Apical] 89 Pulse Rhythm Regular Pulse Rhythm [Apical] Regular Pulse Strength [Apical] Normal Respiratory Rate 20 18 16 Respiratory Effort / Characteristics Non-Labored Spontaneous Non-Labored Spontaneous Respiratory Depth Normal Normal Respiratory Pattern Regular Regular Blood Pressure 140/78 Blood Pressure [Right Arm] Blood Pressure Mean 98 Blood Pressure Mean [Right Arm] Blood Pressure Position [Right Arm] Pulse Oximetry 99 99 99 Oxygen Delivery Method Room Air Room Air Room Air Sepsis Recent Fever Within 48 Hours No Sepsis New/Unexplained Change in Mental Status N/A Sepsis Action Taken by Nursing No Action Required 10/28/24 18:16 10/28/24 21:09 Temperature Temperature Source Pulse Rate Pulse Rate [Apical] 81 92 H Pulse Rhythm Pulse Rhythm [Apical] Pulse Strength [Apical] Respiratory Rate 20 18 Respiratory Effort / Characteristics Non-Labored Spontaneous Respiratory Depth Normal Respiratory Pattern Blood Pressure Blood Pressure [Right Arm] 115/67 95/78 L Blood Pressure Mean Blood Pressure Mean [Right Arm] 83 83 Blood Pressure Position [Right Arm] Sitting Pulse Oximetry 98 98 Oxygen Delivery Method Room Air Sepsis Recent Fever Within 48 Hours Sepsis New/Unexplained Change in Mental Status Sepsis Action Taken by Nursing VITAL SIGNS - Vital signs and nursing notes were reviewed. Stable and afebrile. GENERAL -64-year-old female appearing her stated age who is in no acute distress. Communicates well with provider and answers questions appropriately. SKIN - Without rashes. No meningeal or petechial rash. HEAD - NC/AT. EYES - PERRL with EOMI bilaterally. Sclera anicteric. EARS - No deformities of external structures noted on gross examination bilaterally. NOSE - Midline and without cyanosis. No epistaxis or purulent drainage noted. MOUTH/OROPHARYNX - Without perioral cyanosis. NECK - Neck with FROM. No nuchal rigidity. LUNGS - CTA CARDIAC - RRR ABDOMEN - Abdominal contour normal without pulsations or visible masses. BS normoactive all four quadrants. No tenderness, palpable masses, hepatosplenomegaly, or ascites noted. EXTREMITIES - No clubbing or peripheral cyanosis. +5/5 strength noted in UE/LE bilaterally. NEUROLOGIC - Cranial nerves II through XII grossly intact. Patient with bilateral knee replacements, Achilles reflexes within normal limits bilaterally. PSYCH -alert, oriented and pleasant on exam. Course Administered Medications Discontinued Medications Acetaminophen (Acetaminophen 325 Mg Tab) 650 mg PO NOW STA Stop: 10/28/24 19:59 Last Admin: 10/28/24 20:47 Dose: 650 mg Documented By: DANIEL Dexamethasone Sodium Phosphate (DexamethasonePf 10 Mg/Ml Vial) 10 mg IV NOW ONE Stop: 10/28/24 20:09 Last Admin: 10/28/24 20:46 Dose: 10 mg Documented By: DANIEL Hydromorphone HCl (Hydromorphone Inj 0.5 Mg/0.5 Ml Syr) 0.5 mg IV NOW STA Stop: 10/28/24 15:13 Last Admin: 10/28/24 15:26 Dose: 0.5 mg Documented By: FAITH Hydromorphone HCl (Hydromorphone Inj 0.5 Mg/0.5 Ml Syr) 0.5 mg IV NOW STA Stop: 10/28/24 17:11 Last Admin: 10/28/24 17:17 Dose: 0.5 mg Documented By: Hydromorphone HCl (Hydromorphone Inj 0.5 Mg/0.5 Ml Syr) 0.25 mg IV NOW STA Stop: 10/28/24 19:50 Last Admin: 10/28/24 20:46 Dose: 0.25 mg Documented By: DANIEL Ketorolac Tromethamine (Ketorolac Tromethamine 15 Mg/Ml Vial) 10 mg IV NOW ONE Stop: 10/28/24 19:59 Last Admin: 10/28/24 20:46 Dose: 10 mg Documented By: DANIEL Lidocaine (Lidocaine 5% 1 Patch) 1 patch TD NOW STA Stop: 10/28/24 19:50 Last Admin: 10/28/24 20:46 Dose: 1 patch Documented By: DANIEL Ondansetron HCl (Ondansetron Inj 2 Mg/Ml 2 Ml Vial) 4 mg IV NOW STA Stop: 10/28/24 15:13 Last Admin: 10/28/24 15:26 Dose: 4 mg Documented By: FAITH Medical Decision Making Laboratory Data 10/28/24 17:28 10/28/24 17:28 Lab Results 10/28/24 10/28/24 10/28/24 Range/Units 15:25 16:47 17:28 WBC Cancelled Cancelled 6.34 RBC Cancelled Cancelled 4.79 Hgb Cancelled Cancelled 13.1 Hct Cancelled Cancelled 39.7 MCV Cancelled Cancelled 82.9 MCH Cancelled Cancelled 27.3 MCHC Cancelled Cancelled 33.0 RDW Std Deviation Cancelled Cancelled 45.8 RDW Coeff of Dilshad Cancelled Cancelled 15.1 H Plt Count Cancelled Cancelled 229 MPV Cancelled Cancelled 9.5 Immature Gran % (Auto) Cancelled Cancelled 0.3 Neut % (Auto) Cancelled Cancelled 50.5 Lymph % (Auto) Cancelled Cancelled 34.5 [place] % (Auto) Cancelled Cancelled 9.8 Eos % (Auto) Cancelled Cancelled 3.6 Baso % (Auto) Cancelled Cancelled 1.3 Neut # (Auto) Cancelled Cancelled 3.20 Lymph # (Auto) Cancelled Cancelled 2.19 [place] # (Auto) Cancelled Cancelled 0.62 H Eos # (Auto) Cancelled Cancelled 0.23 Baso # (Auto) Cancelled Cancelled 0.08 Immature Gran # (Auto) Cancelled Cancelled 0.02 Absolute Nucleated RBC Cancelled Cancelled 0.03 Nucleated RBC % (auto) Cancelled Cancelled 0.5 Neutrophils % (Manual) Cancelled Cancelled Band Neutrophils % Cancelled Cancelled Lymphocytes % (Manual) Cancelled Cancelled Prolymphocyte % Cancelled Cancelled Reactive Lymphs % (Man) Cancelled Cancelled Monocytes % (Manual) Cancelled Cancelled Eosinophils % (Manual) Cancelled Cancelled Basophils % (Manual) Cancelled Cancelled Metamyelocytes % (Man) Cancelled Cancelled Myelocytes % (Man) Cancelled Cancelled Promyelocytes % (Man) Cancelled Cancelled Blast Cells % (Manual) Cancelled Cancelled Plasma Cell % (Manual) Cancelled Cancelled Other Cells % Cancelled Cancelled Nucleated RBC % Cancelled Cancelled Neutrophils # (Manual) Cancelled Cancelled Band Neutrophils # Cancelled Cancelled Total Absolute Neuts Cancelled Cancelled Lymphocytes # (Manual) Cancelled Cancelled Prolymphocyte # Cancelled Cancelled Reactive Lymphs # Cancelled Cancelled Total Abs Lymphocytes Cancelled Cancelled Monocytes # (Manual) Cancelled Cancelled Eosinophils # (Manual) Cancelled Cancelled Basophils # (Manual) Cancelled Cancelled Metamyelocytes # (Man) Cancelled Cancelled Myelocytes # (Manual) Cancelled Cancelled Promyelocytes # (Man) Cancelled Cancelled Blast Cells # (Man) Cancelled Cancelled Plasma Cell # (Manual) Cancelled Cancelled Other Cells # Cancelled Cancelled Nucleated RBCs # (Man) Cancelled Cancelled Hypersegmented Neuts Cancelled Cancelled Hyposegmented Neuts Cancelled Cancelled Hypogranular Neuts Cancelled Cancelled Large Granular Lymphs Cancelled Cancelled # Lrg Granular Lymphs Cancelled Cancelled Hairy Cells Cancelled Cancelled Smudge Cells Cancelled Cancelled Toxic Granulation Cancelled Cancelled Toxic Vacuolation Cancelled Cancelled Dohle Bodies Cancelled Cancelled [place]k Rods Cancelled Cancelled Platelet Estimate Cancelled Cancelled Hypogranular Platelets Cancelled Cancelled Giant Platelets Cancelled Cancelled Platelet Satelliting Cancelled Cancelled RBC Morphology Cancelled Cancelled Polychromasia Cancelled Cancelled Hypochromasia Cancelled Cancelled Poikilocytosis Cancelled Cancelled Basophilic Stippling Cancelled Cancelled Anisocytosis Cancelled Cancelled Microcytosis Cancelled Cancelled Macrocytosis Cancelled Cancelled Spherocytes Cancelled Cancelled Pappenheimer Bodies Cancelled Cancelled Sickle Cells Cancelled Cancelled Target Cells Cancelled Cancelled Tear Drop Cells Cancelled Cancelled Ovalocytes Cancelled Cancelled Stomatocytes Cancelled Cancelled Leonardo-[place] Bodies Cancelled Cancelled Echinocytes Cancelled Cancelled Acanthocytes (Spur) Cancelled Cancelled Rouleaux Cancelled Cancelled RBC Agglutinates Cancelled Cancelled Schistocytes Cancelled Cancelled Sezary Cell Cancelled Cancelled Sodium 137 (136-145) mmol/L Potassium TNP 4.4 Chloride 105 (98-107) mmol/L Carbon Dioxide 26 (21-32) mmol/L Anion Gap 6 (3-11) BUN 15 (6-23) mg/dl Creatinine 0.91 (0.6-1.2) mg/dl Est Cr Clr Drug Dosing 75.6 ml/min eGFR 70.89 BUN/Creatinine Ratio 16.5 (10-20) Glucose 114 H (70-99(Fasting)) mg/dl Calcium 9.8 (8.6-10.3) mg/dl Total Bilirubin 0.5 (0.2-1.0) mg/dl AST TNP 18 ALT 15 (7-52) U/L Alkaline Phosphatase 67 (34-104) U/L Total Protein 7.4 (6.0-8.3) gm/dl Albumin 4.1 (3.4-5.0) gm/dl Globulin 3.3 (2.5-4.0) gm/dl Albumin/Globulin Ratio 1.2 (0.9-2) Urine Color Yellow Urine Appearance Clear (Clear) Urine pH 5.5 (4.5-7.5) Ur Specific [place] 1.021 (1.000-1.030) Urine Protein Negative (Negative) Urine Glucose (UA) Negative (Negative) Urine Ketones Negative (Negative) Urine Blood Negative (Negative) Urine Nitrite Negative (Negative) Urine Bilirubin Negative (Negative) Urine Urobilinogen Negative (Negative) Ur Leukocyte Esterase Negative (Negative) Blood Parasites ID Cancelled Cancelled Imaging Data Radiologist's Impression: Lumbar Spine MRI 10/28/24 15:11 Exam(s): MRI L SPINE Without Contrast EXAM: MR Lumbar Spine Without Intravenous Contrast CLINICAL HISTORY: Reason for exam: hx L spine surgery, leg weakness, genital numbness. TECHNIQUE: Magnetic resonance images of the lumbar spine without intravenous contrast in multiple planes. COMPARISON: MRI 11/07/2023 FINDINGS: Postsurgical changes from L2-3 posterior instrumented fusion. There is decompression from L2-3 through L4-5. No acute fracture. Normal cord signal. No discitis osteomyelitis. L1-L2: Disc osteophyte with facet hypertrophy and ligamentum flavum thickening. Severe canal stenosis. Mild right and mild left foraminal stenosis. L2-L3: The canal is decompressed. No canal or foraminal stenosis. L3-L4: The canal is decompressed. No canal or foraminal stenosis. L4-L5: The canal is decompressed. No canal stenosis. Mild to moderate right and no significant foraminal stenosis on the left. L5-S1: No spinal canal or foraminal stenosis. IMPRESSION: Severe spinal canal stenosis at L1-L2. Electronically signed by: Joaquin Martins MD 10/28/24 20:02 PM MDM Narrative Patient was seen and evaluated as above in room D04a. Review was performed of triage nursing notes and vital signs. I did review pertinent previous visits and patient history. After obtaining a thorough history and physical examination the above work up was performed. Patient presents with back pain. On my assessment the patient does appear to be in pain. She does note some leg weakness. No incontinence. IV access with established. Labs were drawn. Patient medicated with analgesia. No leukocytosis or concerning anemia. No emergent metabolic disturbance. Mild hyperglycemia 114. Urinalysis does not suggest infection. Noting the progressively worsening low back pain with leg weakness we will proceed with MRI of the L-spine. Results as above. There is note of severe spinal canal stenosis L1-L2. No evidence of cauda equina syndrome on exam. Patient continued with significant discomfort despite analgesia here in the emergency department. Will proceed with further evaluation and management in the inpatient setting. Case discussed with the hospitalist service. Please refer to further documentation regarding her stay. GCS: 15 In the evaluation and treatment of this patient the following differential diagnoses were entertained: Fracture, dislocation, subluxation, contusion, sprain, strain, infection, cauda equina syndrome, among others. Impression & Plan Intractable back pain, Spinal stenosis of lumbar region Discharge Plan Visit Data Chief Complaint: Back Injury/Pain Stated Complaint: PAIN & NUMBNESS IN LUMBAR, DOWN GROIN AND THIGHS ED Provider: Robert Sarabia ED Midlevel Provider: Bruno Dong Discharge Problem: Intractable back pain, Spinal stenosis of lumbar region Patient Disposition: Admitted As Inpatient Condition: Good Discharge Instructions Interventions: ED Discharge Assessment Last Done: 10/28/24 21:59
[2024-10-28] MEDS: HYDROmorphone INJ 0.5 MG/0.5 ML SYR IV STA ×3 (15:26→20:46)
[2024-10-28] MEDS: ONDANSETRON INJ 2 MG/ML 2 ML VIAL IV STA (15:26)
[2024-10-28 15:50] LABS: Appearance Urine Clear (Clear); Bilirubin Urine Negative (Negative); Blood Urine Negative (Negative); Color Urine Yellow; Glucose Urine UA Negative (Negative); Ketones Urine Negative (Negative); Leukocyte Esterase Urine Negative (Negative); Nitrite Urine Negative (Negative); Protein Urine Negative (Negative); Specific Gravity Urine 1.021 (1.000-1.030); Urobilinogen Urine Negative (Negative); pH Urine 5.5 (4.5-7.5)
[2024-10-28 17:17] LABS: Alanine Aminotransferase 15 U/L (7-52); Albumin Globulin Ratio 1.2 (0.9-2); Albumin Level 4.1 gm/dl (3.4-5.0); Alkaline Phosphatase 67 U/L (34-104); Anion Gap 6 (3-11); BUN Creatinine Ratio 16.5 (10-20); Bilirubin,Total 0.5 mg/dl (0.2-1.0); Blood Urea Nitrogen 15 mg/dl (6-23); Calcium 9.8 mg/dl (8.6-10.3); Carbon Dioxide 26 mmol/L (21-32); Chloride 105 mmol/L (98-107); Creatinine Clr Calc Pharmacy 75.6 ml/min; Globulin 3.3 gm/dl (2.5-4.0); Glucose 114 mg/dl (70-99(Fasting)); Sodium 137 mmol/L (136-145); Total Protein 7.4 gm/dl (6.0-8.3)
[2024-10-28 17:53] LABS: Basophils # (auto) 0.08 K/uL (0.00-0.20); Basophils % (auto) 1.3 %; Eosinophils # (auto) 0.23 K/uL (0.00-0.50); Eosinophils % (auto) 3.6 %; Hematocrit (blood only) 39.7 % (37.0-47.0); Hemoglobin 13.1 g/dl (12.0-16.0); Immature Granulocytes # (auto) 0.02 K/uL (0.01-0.20); Immature Granulocytes % (auto) 0.3 %; Lymphocytes # (auto) 2.19 K/uL (1.20-3.40); Lymphocytes % (auto) 34.5 %; Mean Corpuscular Hemoglobin 27.3 pg (25.0-34.0); Mean Corpuscular Volume 82.9 fL (80.0-100.0); Mean Platelet Volume 9.5 fL (9.4-12.4); Monocytes # (auto) 0.62 K/uL (0.11-0.59); Monocytes % (auto) 9.8 %; Neutrophils % (auto) 50.5 %; Nucleated RBC # (auto) 0.03 K/uL (0.00-0.12); Nucleated RBC % (auto) 0.5 %; Platelet Count 229 K/uL (130-400); RDW Coefficient of Variation 15.1 % (11.5-14.5); RDW Standard Deviation 45.8 fL (36.4-46.3); Red Blood Count 4.79 M/uL (4.20-5.40); White Blood Count 6.34 K/ul (4.8-10.8)
[2024-10-28 18:02] LABS: Potassium 4.4 mmol/L (3.5-5.1)
--- NOTE | 2024-10-28 20:03 | Magnetic Resonance Report ---
Exam(s): MRI L SPINE Without Contrast EXAM: MR Lumbar Spine Without Intravenous Contrast CLINICAL HISTORY: Reason for exam: hx L spine surgery, leg weakness, genital numbness. TECHNIQUE: Magnetic resonance images of the lumbar spine without intravenous contrast in multiple planes. COMPARISON: MRI 11/07/2023 FINDINGS: Postsurgical changes from L2-3 posterior instrumented fusion. There is decompression from L2-3 through L4-5. No acute fracture. Normal cord signal. No discitis osteomyelitis. L1-L2: Disc osteophyte with facet hypertrophy and ligamentum flavum thickening. Severe canal stenosis. Mild right and mild left foraminal stenosis. L2-L3: The canal is decompressed. No canal or foraminal stenosis. L3-L4: The canal is decompressed. No canal or foraminal stenosis. L4-L5: The canal is decompressed. No canal stenosis. Mild to moderate right and no significant foraminal stenosis on the left. L5-S1: No spinal canal or foraminal stenosis. IMPRESSION: Severe spinal canal stenosis at L1-L2. Electronically signed by: Joaquin Martins MD 10/28/24 20:02 PM
[2024-10-28] MEDS: dexAMETHasone**PF** 10 MG/ML VIAL IV ONE (20:46)
[2024-10-28] MEDS: LIDOCAINE 5% 1 PATCH TD STA (20:46)
[2024-10-28] MEDS: KETOROLAC TROMETHAMINE 15 MG/ML VIAL IV ONE (20:46)
[2024-10-28] MEDS: ACETAMINOPHEN 325 MG TAB PO STA (20:47)
--- NOTE | 2024-10-28 21:43 | History & Physical Report ---
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 Associated "leakage" of urine for the same duration of time, no complete incontinence. Lumbar spine MRI w/ evidence of severe stenosis at L1-L2. Provided w/ multiple doses of pain medication in ED w/o significant relief. 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 Rating pain 7-8/10 on pain scale at time of admission, was 10/10 upon initial arrival. Without midline tenderness; No recent trauma. - Lumbar spine MRI - Severe spinal canal stenosis at L1-L2 - Fall precautions, Heating pad, lidocaine patch - Prednisone 40mg daily + pain medications as ordered - Pt has utilized Zofran for nausea; if continues to use--> EKG - Ortho spine consulted- appreciate input + recs #Hypothyroidism- Synthroid Home meds state pt on clonazepam but no dose or fill history so HOLD Dispo: Med VTE Prophylaxis: Lovenox This document was dictated utilizing [employer]. Please excuse any grammatical errors that may be secondary to use of this software. Admission and Anticipated Discharge Date Admission Date: 10/28/2024 History of Present Illness Chief Complaint: Back pain Primary Care Provider: Goyo Yanes MD 64-year-old female PMHx left hip replacement, anxiety, positive VIOLET, and chronic lumbar back pain with radiculopathy to ED for ongoing low back pain that radiates into the groin and tops of the thighs with associated numbness. 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 States that the numbness extends to bilateral feet, but she still has sensation and has not impaired her ability to walk. Denies loss of bowel or bladder, but has noticed increased "leakage" of urine for the same duration of time as the back pain worsen. Has not had any recent trauma. Does have SOB when the pain is at its worst, which she rates "more than 10/10" when asked to rate her maximum pain the pain scale. At time of visit, stating that her pain is a 7-8 out of 10 on the same pain scale. Describes it as constant and some shooting pain. Does have intermittent episodes of nausea without vomiting. Also had a few episodes of loose stool day prior to arrival, relating this to her recent dietary choices. Otherwise denying chest pain, shortness of breath, abdominal pain, vomiting/constipation, LUTS, weakness, headache, or fever/chills. Took all a.m. medications. Please see Dr. Murphy's attestation for adjustments/additions to treatment plan. Allergies Allergy/AdvReac Type Severity Reaction Status Date / Time morphine Allergy Severe SHORT OF Verified 05/03/24 18:28 BREATH celecoxib [From Celebrex] Allergy Intermediate swelling Verified 05/03/24 18:28 gabapentin Allergy Intermediate Blurry Verified 05/03/24 18:28 Vision Sulfa (Sulfonamide Allergy Intermediate Rash Verified 05/03/24 18:28 Antibiotics) levofloxacin Allergy Mild RASH WITH Verified 05/03/24 18:28 IV MEDICATION Quinolones Allergy Mild Rash Verified 05/03/24 18:28 wheat Allergy Mild GI Verified 05/03/24 18:28 SENSITIVITY diphenhydramine AdvReac Intermediate "KEEPS ME Verified 05/03/24 18:28 AWAKE INSTEAD OF MAKING ME SLEEPY" hydroxyzine AdvReac Intermediate HYPERACTIVE Verified 05/03/24 18:28 prednisone AdvReac Intermediate PSYCHOTIC Verified 05/03/24 18:28 COMPLICATIONS tramadol AdvReac Mild "OUT OF Verified 06/05/24 18:49 BODY"/DISORIENTED Home Medications Medication Instructions Recorded Confirmed Type vitamin B complex 1 cap PO QAM 07/17/18 10/28/24 History cholecalciferol (vitamin D3) 25 1,000 units PO QAM 06/01/20 10/28/24 History mcg (1,000 unit) capsule (Vitamin D3) acetaminophen 500 mg tablet 1,000 mg PO Q8H PRN Pain 04/24/23 10/28/24 History krill 1,000 mg-omega-3 170 mg-dha 1 cap PO DAILY 10/06/23 10/28/24 History 50 mg-epa 80 [id number] capsule (krill oil) levothyroxine 50 mcg tablet 50 mcg PO UD 12/25/23 10/28/24 History loratadine 10 mg tablet (Claritin) 10 mg PO DAILY PRN Congestion 05/03/24 10/28/24 History clonazepam 1 tab PO DIRECTED PRN Other 06/05/24 10/28/24 History Aspir-81 81 mg PO DAILY 10/28/24 10/28/24 History Past Med/Surg History Problem List (Updated 10/29/24 @ 00:06 by Eduardo Ashley) Cervical radiculopathy Pain of left calf Arm paresthesia, left (Acute) LUE weakness (Acute) Hip pain Ambulatory dysfunction (Acute) Sinus tachycardia (Acute) Spinal stenosis of lumbar region (Acute) Intractable back pain (Acute) Osteoarthritis of right hip (Acute) Lumbar back pain with radiculopathy affecting right lower extremity (Acute) Right leg pain Lipedema Fatty infiltration of liver Dyslipidemia Prediabetes Osteoarthritis of right hip Sacroiliac joint pain Postlaminectomy syndrome of lumbosacral region Right leg weakness Migraine (Chronic) Morbid obesity (Chronic) Neurogenic claudication due to lumbar spinal stenosis Metabolic syndrome Pulmonary embolism Sensorineural hearing loss (SNHL) of both ears 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 SINGLE FLARE 2012. Anxiety Surgical History Hx of arthroscopy of left knee Hx of spinal surgery History of right knee joint replacement H/O bilateral salpingo-oophorectomy History of carpal tunnel release RT/LEFT History of bilateral tubal ligation [place] teeth removed History of myringotomy History of esophagogastroduodenoscopy (EGD) History of breast biopsy R BREAST-BENIGN History of section X4 History of colonoscopy History of appendectomy History of bronchoscopy TO DX SARCODOSIS 2012 S/P lumbar spinal fusion S/P cervical spinal fusion GOOD ROM S/P partial hysterectomy Family History Brother Diabetes Colorectal cancer Mother Diabetes Stomach cancer Sarcoidosis Lymphoma Father Coronary heart disease Other Cancer Heart disease Hypertension No family history of adverse response to anesthesia No family history of bleeding disorder Social History Smoking Status: Never smoker Second Hand Exposure: No; Do You Dip or Chew Tobacco: No; Hx Alcohol Use: No Hx Substance Use: No Preferred Language: Bermudian Communication Ability: Effective Visual Impairment: No Limitations Temporary Administrative Assistant Required: No Beliefs That Will Affect Care: Zoroastrian Zoroastrian Beliefs: Restorationism marital status: Current Living Situation: Spouse Current Living Situation Comment: Also son and niece intermittently. Other Information That Helps Us Care for You: No Feels Safe at Home: Yes Safety Concerns: Feels Safe At This Time Assistive Devices: Glasses Review of Systems Review of Systems: All systems reviewed & are unremarkable except as noted in Subjective Physical Exam Physical Exam: General: No acute distress, does appear uncomfortable while resting in bed. Skin: Warm and dry, without rashes or lesions Head: Normocephalic, atraumatic Eyes: PERRL, conjunctivae clear, sclera non-icteric; Wearing glasses ENT: External ear and ear canal without swelling; nose atraumatic; good dentition Neck: Supple, no LAD Cardio: RRR, no M/G/R, S1 and S2 normal Resp: No respiratory distress, Lungs CTA in all lobes bilaterally, no wheezes, rales, or rhonchi Abdomen: Soft, symmetric, nontender; No masses or hepatosplenomegaly; Bowel sounds normoactive MSK: No deformities, full ROM throughout; pulses palpable and equal; no edema. Neuro: Awake, alert; Muscle strength 5/5 bilaterally in UE/LE; Sensation grossly intact bilaterally, slightly diminished BLE at the feet/toes; Reflexes WNL and equal bilaterally; CN intact Psych: Appropriate mood and affect; good judgement and insight. Results & Data Results & Data Vital Signs (Past 12 Hours) Vital Signs Temp Pulse Pulse Resp BP BP Pulse Ox 10/28/24 21:09 92 H 18 95/78 L 98 10/28/24 18:16 81 20 115/67 98 10/28/24 16:14 89 16 99 01/06/25 16:13 84 18 99 10/28/24 14:12 36.6 C 102 H 20 140/78 99 O2 Del Method 10/28/24 21:09 Room Air 10/28/24 18:16 10/28/24 16:14 Room Air 10/28/24 16:13 Room Air 10/28/24 14:12 Room Air Laboratory Results 10/28/24 10/28/24 10/28/24 17:28 16:47 15:25 WBC 6.34 Cancelled Cancelled RBC 4.79 Cancelled Cancelled Hgb 13.1 Cancelled Cancelled Hct 39.7 Cancelled Cancelled MCV 82.9 Cancelled Cancelled MCH 27.3 Cancelled Cancelled MCHC 33.0 Cancelled Cancelled RDW Std Deviation 45.8 Cancelled Cancelled RDW Coeff of Dilshad 15.1 H Cancelled Cancelled Plt Count 229 Cancelled Cancelled MPV 9.5 Cancelled Cancelled Immature Gran % (Auto) 0.3 Cancelled Cancelled Neut % (Auto) 50.5 Cancelled Cancelled Lymph % (Auto) 34.5 Cancelled Cancelled [place] % (Auto) 9.8 Cancelled Cancelled Eos % (Auto) 3.6 Cancelled Cancelled Baso % (Auto) 1.3 Cancelled Cancelled Neut # (Auto) 3.20 Cancelled Cancelled Lymph # (Auto) 2.19 Cancelled Cancelled [place] # (Auto) 0.62 H Cancelled Cancelled Eos # (Auto) 0.23 Cancelled Cancelled Baso # (Auto) 0.08 Cancelled Cancelled Immature Gran # (Auto) 0.02 Cancelled Cancelled Absolute Nucleated RBC 0.03 Cancelled Cancelled Nucleated RBC % (auto) 0.5 Cancelled Cancelled Neutrophils % (Manual) Cancelled Cancelled Band Neutrophils % Cancelled Cancelled Lymphocytes % (Manual) Cancelled Cancelled Prolymphocyte % Cancelled Cancelled Reactive Lymphs % (Man) Cancelled Cancelled Monocytes % (Manual) Cancelled Cancelled Eosinophils % (Manual) Cancelled Cancelled Basophils % (Manual) Cancelled Cancelled Metamyelocytes % (Man) Cancelled Cancelled Myelocytes % (Man) Cancelled Cancelled Promyelocytes % (Man) Cancelled Cancelled Blast Cells % (Manual) Cancelled Cancelled Plasma Cell % (Manual) Cancelled Cancelled Other Cells % Cancelled Cancelled Nucleated RBC % Cancelled Cancelled Neutrophils # (Manual) Cancelled Cancelled Band Neutrophils # Cancelled Cancelled Total Absolute Neuts Cancelled Cancelled Lymphocytes # (Manual) Cancelled Cancelled Prolymphocyte # Cancelled Cancelled Reactive Lymphs # Cancelled Cancelled Total Abs Lymphocytes Cancelled Cancelled Monocytes # (Manual) Cancelled Cancelled Eosinophils # (Manual) Cancelled Cancelled Basophils # (Manual) Cancelled Cancelled Metamyelocytes # (Man) Cancelled Cancelled Myelocytes # (Manual) Cancelled Cancelled Promyelocytes # (Man) Cancelled Cancelled Blast Cells # (Man) Cancelled Cancelled Plasma Cell # (Manual) Cancelled Cancelled Other Cells # Cancelled Cancelled Nucleated RBCs # (Man) Cancelled Cancelled Hypersegmented Neuts Cancelled Cancelled Hyposegmented Neuts Cancelled Cancelled Hypogranular Neuts Cancelled Cancelled Large Granular Lymphs Cancelled Cancelled # Lrg Granular Lymphs Cancelled Cancelled Hairy Cells Cancelled Cancelled Smudge Cells Cancelled Cancelled Toxic Granulation Cancelled Cancelled Toxic Vacuolation Cancelled Cancelled Dohle Bodies Cancelled Cancelled Alek Rods Cancelled Cancelled Platelet Estimate Cancelled Cancelled Hypogranular Platelets Cancelled Cancelled Giant Platelets Cancelled Cancelled Platelet Satelliting Cancelled Cancelled RBC Morphology Cancelled Cancelled Polychromasia Cancelled Cancelled Hypochromasia Cancelled Cancelled Poikilocytosis Cancelled Cancelled Basophilic Stippling Cancelled Cancelled Anisocytosis Cancelled Cancelled Microcytosis Cancelled Cancelled Macrocytosis Cancelled Cancelled Spherocytes Cancelled Cancelled Pappenheimer Bodies Cancelled Cancelled Sickle Cells Cancelled Cancelled Target Cells Cancelled Cancelled Tear Drop Cells Cancelled Cancelled Ovalocytes Cancelled Cancelled Stomatocytes Cancelled Cancelled Leonardo-[place] Bodies Cancelled Cancelled Echinocytes Cancelled Cancelled Acanthocytes (Spur) Cancelled Cancelled Rouleaux Cancelled Cancelled RBC Agglutinates Cancelled Cancelled Schistocytes Cancelled Cancelled Sezary Cell Cancelled Cancelled Sodium 137 Potassium 4.4 TNP Chloride 105 Carbon Dioxide 26 Anion Gap 6 BUN 15 Creatinine 0.91 Est Cr Clr Drug Dosing 75.6 eGFR 70.89 BUN/Creatinine Ratio 16.5 Glucose 114 H Calcium 9.8 Total Bilirubin 0.5 AST 18 TNP ALT 15 Alkaline Phosphatase 67 Total Protein 7.4 Albumin 4.1 Globulin 3.3 Albumin/Globulin Ratio 1.2 Urine Color Yellow Urine Appearance Clear Urine pH 5.5 Ur Specific [place] 1.021 Urine Protein Negative Urine Glucose (UA) Negative Urine Ketones Negative Urine Blood Negative Urine Nitrite Negative Urine Bilirubin Negative Urine Urobilinogen Negative Ur Leukocyte Esterase Negative Blood Parasites ID Cancelled Cancelled Diagnostic Findings Lumbar Spine MRI 10/28/24 15:11 Exam(s): MRI L SPINE Without Contrast EXAM: MR Lumbar Spine Without Intravenous Contrast CLINICAL HISTORY: Reason for exam: hx L spine surgery, leg weakness, genital numbness. TECHNIQUE: Magnetic resonance images of the lumbar spine without intravenous contrast in multiple planes. COMPARISON: MRI 11/07/2023 FINDINGS: Postsurgical changes from L2-3 posterior instrumented fusion. There is decompression from L2-3 through L4-5. No acute fracture. Normal cord signal. No discitis osteomyelitis. L1-L2: Disc osteophyte with facet hypertrophy and ligamentum flavum thickening. Severe canal stenosis. Mild right and mild left foraminal stenosis. L2-L3: The canal is decompressed. No canal or foraminal stenosis. L3-L4: The canal is decompressed. No canal or foraminal stenosis. L4-L5: The canal is decompressed. No canal stenosis. Mild to moderate right and no significant foraminal stenosis on the left. L5-S1: No spinal canal or foraminal stenosis. IMPRESSION: Severe spinal canal stenosis at L1-L2. Electronically signed by: Joaquin Martins MD 10/28/24 20:02 PM Code Status & VTE Plan Code Status Full VTE Prophylaxis Plan VTE Prophylaxis will be ordered: Yes Supervising Physician Co-Signing Physician Notes Patient seen and examined, chart reviewed, case discussed with ADARSH Avila and I agree with the assessment and plan as above. Patient with acute on chronic back pain - endorses some bilateral LE numbness as well. Patient was administered multiple rounds of pain medication in the ER - ongoing discomfort. No trauma, no fevers On exam patient is uncomfortable but in NAD Skin - warm, dry, no rash HEENT- MMM, neck supple Heart - +S1/S2, regular, no m/r/g Lungs- CTA Abd - soft, NT/ND Ext- warm, well perfused Labs and images reviewed Lumbar spine MRI with severe spinal canal stenosis Assessment/Plan -Multimodal pain control with Prednisone, Tylenol, Heating pad and lidoderm patch -Ortho-Spine consultation appreciated - patient with new LE numbness -Remainder of plan as above PG Care Time/CCT Total # of Minutes Spent Total Time Spent with Patient: Total time spent is greater than 50% in coordination of care (as documented) at patient's floor/unit and/or counseling patient: Coding Level of Care Code 12402 INT INP/OBS CARE 2/55MIN Diagnoses Intractable back pain M54.9
[2024-10-28] MEDS ORDERED: ACETAMINOPHEN 325 MG TAB PO PRN (22:08)
[2024-10-28] MEDS ORDERED: LORATADINE 10 MG TAB PO PRN (22:08)
[2024-10-28] MEDS ORDERED: HYDROmorphone INJ 0.5 MG/0.5 ML SYR IV PRN (22:08)
[2024-10-28] MEDS ORDERED: MELATONIN 3 MG TAB PO PRN (22:08)
[2024-10-29] MEDS: HYDROmorphone INJ 0.5 MG/0.5 ML SYR IV PRN (00:01)
[2024-10-29] MEDS: ONDANSETRON INJ 2 MG/ML 2 ML VIAL IV PRN (00:01)
[2024-10-29] MEDS: HYDROmorphone HCL 2 MG TAB PO PRN (03:46)
[2024-10-29] MEDS: LEVOTHYROXINE SODIUM 50 MCG TABLET PO SCH (05:52)
[2024-10-29] MEDS: ASPIRIN 81 MG ECTAB PO SCH (08:12)
[2024-10-29] MEDS: CHOLECALCIFEROL 25 MCG (1000 UNITS) TAB PO SCH (08:12)
[2024-10-29] MEDS: predniSONE 20 MG TAB PO SCH (08:12)
[2024-10-29] MEDS: VITAMIN B COMPLEX TAB PO SCH (08:12)
[2024-10-29] MEDS: ACETAMINOPHEN 500 MG TAB PO PRN (08:17)
[2024-10-29] MEDS ORDERED: NON-FORMULARY MEDICATION (Krill-Om-3-Dha-Epa-Phospho-Ast [Krill Oil] 1,000-170-50-80 mg Ca PO SCH (09:00)
[2024-10-29] MEDS: KETOROLAC TROMETHAMINE 15 MG/ML VIAL IV ONE (13:55)
[2024-10-29] MEDS: INFLUENZA VACC TS2024-25(6m+)/PF (IIV3) 0.5mL Syr IM ONE (15:19)
--- NOTE | 2024-10-29 16:22 | Hospitalist Progress Note ---
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 Associated "leakage" of urine for the same duration of time, no complete incontinence. Lumbar spine MRI w/ evidence of severe stenosis at L1-L2. Provided w/ multiple doses of pain medication in ED w/o significant relief. 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 Rating pain 7-8/10 on pain scale at time of admission, was 10/10 upon initial arrival. Without midline tenderness; No recent trauma. - Lumbar spine MRI - Severe spinal canal stenosis at L1-L2 - Fall precautions, Heating pad, lidocaine patch - Prednisone 40mg daily + pain medications as ordered - Pt has utilized Zofran for nausea; if continues to use--> EKG - Ortho spine consulted- appreciate input + recs -urinalysis negative -CBC/CMP 10/28 stable. #Hypothyroidism- Synthroid Home meds state pt on clonazepam but no dose or fill history so HOLD Dispo: Med - anticipate discharge home 10/30. VTE Prophylaxis: encourage ambulation Admission and Anticipated Discharge Date Admission Date: October 28, 2024 Subjective Patient seen and examined this morning. Patient reports low back pain and thigh numbness. She reports her pain has improved with pain medications since presenting to the hospital but the numbness is still persisting. Physical Exam Constitutional: WD/WN, vitals as above Eyes: PERRL, conjunctivae normal, anicteric sclerae Respiratory: breathing unlabored Cardiovascular: well perfused Psychiatric: A+Ox3, euthymic affect Results & Data Results & Data Vital Signs (Past 12 Hours) Vital Signs Temp Pulse Resp BP Pulse Ox O2 Del Method 10/29/24 15:43 36.7 C 91 H 18 113/66 96 Room Air 10/29/24 07:52 37.0 C 83 18 101/70 95 Room Air PG Care Time/CCT Total # of Minutes Spent Total Time Spent with Patient: Total time spent is greater than 50% in coordination of care (as documented) at patient's floor/unit and/or counseling patient: Coding Level of Care Code 69401 SUB INP/OBS CARE 2/35MIN Diagnoses Intractable back pain M54.9
--- NOTE | 2024-10-29 17:36 | Orthopedic Consultation ---
Date of Service October 29, 2024 Assessment & Plan (1) Spinal stenosis of lumbar region: (2) LUE weakness: (3) Postlaminectomy syndrome of lumbosacral region: (4) Morbid obesity: History of Present Illness Reason for Consultation: Low back pain, lumbar radiculopathy. Requesting Physician: . Attending Physician: Marcos Madsen 64-year-old female that presents to the emergency department via private vehicle with complaints of "low back pain". The patient notes that she has a history of low back pain however over the past few days notes progressively worsening pain to the bilateral low back that wraps around the hips into the inner groin/thigh area. She does note some numbness to the upper thigh region and a burning/cramping sensation in the low back and thighs. She denies any trauma, injury, fevers, chills, vomiting, abdominal pain, no urinary incontinence. Patient noted that she does feel slightly weaker overall in the lower extremities, but has been ambulating, as stated no specific bowel or bladder issues. She has been ambulatory in the hallways while at the hospital with no significant change in her symptoms since admission. Exam reveals the patient to be comfortable in bed, awake alert and talking without any significant pain. Exam reveals her to have 5 or 5 strength for EHL, ankle dorsiflexion plantarflexion knee extension, hip flexion strength bilaterally no clonus noted. Slight decrease to light touch in the lower extremities in the diffuse fashion. EXAM: October 28, 2024 MR Lumbar Spine Without Intravenous Contrast CLINICAL HISTORY: Reason for exam: hx L spine surgery, leg weakness, genital numbness. TECHNIQUE: Magnetic resonance images of the lumbar spine without intravenous contrast in multiple planes. COMPARISON: MRI 11/07/2023 FINDINGS: Postsurgical changes from L2-3 posterior instrumented fusion. There is decompression from L2-3 through L4-5. No acute fracture. Normal cord signal. No discitis osteomyelitis. L1-L2: Disc osteophyte with facet hypertrophy and ligamentum flavum thickening. Severe canal stenosis. Mild right and mild left foraminal stenosis. L2-L3: The canal is decompressed. No canal or foraminal stenosis. L3-L4: The canal is decompressed. No canal or foraminal stenosis. L4-L5: The canal is decompressed. No canal stenosis. Mild to moderate right and no significant foraminal stenosis on the left. L5-S1: No spinal canal or foraminal stenosis. MRI images lumbar spine from October 28, 2024 were reviewed, this my separate interpretation, this reveals the patient to have had prior arthrodesis at L2-3 with instrumentation, evidence of prior lumbar decompression and fusion from L2- S1, this was confirmed on a previous CT scan of the lumbar spine. Comparison was made to MRI images of the lumbar spine from November 07, 2023, this reveals the patient to have very similar amount of stenosis, moderate bordering on severe at the L1-2 level without a significant amount of change from the previous MRI. This is a combination of broad-based disc bulge, along with facet arthropathy. Impression: Slowly worsening of increasing low back pain as the main complaint along with neural compressive symptoms in the lower extremities as discussed, very similar amount of stenosis when compared to previous MRI from 1 year ago but with perhaps slight worsening with stenosis at the L1-2 level. Plan: Today I reviewed the images with the patient in terms of the findings noting to her that she has successful fusion at L2-S1, but now has continued development of stenosis at the L1-2 level. I related to her that treatment with conservative measures might limit the amount of symptoms that she has, but I am noting to her that I think operative intervention may be necessary as she has had in the past with fusion and decompression. The patient has had a prior surgeries with Dr. Quezada, she expressed an interest in following up with him with discharge from the hospital today relative to any additional surgical procedures. Allergies Allergy/AdvReac Type Severity Reaction Status Date / Time morphine Allergy Severe SHORT OF Verified 05/03/24 18:28 BREATH celecoxib [From Celebrex] Allergy Intermediate swelling Verified 05/03/24 18:28 gabapentin Allergy Intermediate Blurry Verified 05/03/24 18:28 Vision Sulfa (Sulfonamide Allergy Intermediate Rash Verified 05/03/24 18:28 Antibiotics) levofloxacin Allergy Mild RASH WITH Verified 05/03/24 18:28 IV MEDICATION Quinolones Allergy Mild Rash Verified 05/03/24 18:28 wheat Allergy Mild GI Verified 05/03/24 18:28 SENSITIVITY diphenhydramine AdvReac Intermediate "KEEPS ME Verified 05/03/24 18:28 AWAKE INSTEAD OF MAKING ME SLEEPY" hydroxyzine AdvReac Intermediate HYPERACTIVE Verified 05/03/24 18:28 prednisone AdvReac Intermediate PSYCHOTIC Verified 05/03/24 18:28 COMPLICATIONS tramadol AdvReac Mild "OUT OF Verified 06/05/24 18:49 BODY"/DISORIENTED Home Medications Medication Instructions Recorded Confirmed Type vitamin B complex 1 cap PO QAM 07/17/18 10/28/24 History cholecalciferol (vitamin D3) 25 1,000 units PO QAM 06/01/20 10/28/24 History mcg (1,000 unit) capsule (Vitamin D3) acetaminophen 500 mg tablet 1,000 mg PO Q8H PRN Pain 04/24/23 10/28/24 History krill 1,000 mg-omega-3 170 mg-dha 1 cap PO DAILY 10/06/23 10/28/24 History 50 mg-epa 80 rk-jopizt-yegxp capsule (krill oil) levothyroxine 50 mcg tablet 50 mcg PO UD 12/25/23 10/28/24 History loratadine 10 mg tablet (Claritin) 10 mg PO DAILY PRN Congestion 05/03/2410/28 History clonazepam 1 tab PO DIRECTED PRN Other 06/05/24 10/28/24 History Aspir-81 81 mg PO DAILY 10/28/24 10/28/24 History Past Med/Surg History Problem List (Updated 10/29/24 @ 00:06 by Eduardo Ashley) Cervical radiculopathy Pain of left calf Arm paresthesia, left (Acute) LUE weakness (Acute) Hip pain Ambulatory dysfunction (Acute) Sinus tachycardia (Acute) Spinal stenosis of lumbar region (Acute) Intractable back pain (Acute) Osteoarthritis of right hip (Acute) Lumbar back pain with radiculopathy affecting right lower extremity (Acute) Right leg pain Lipedema Fatty infiltration of liver Dyslipidemia Prediabetes Osteoarthritis of right hip Sacroiliac joint pain Postlaminectomy syndrome of lumbosacral region Right leg weakness Migraine (Chronic) Morbid obesity (Chronic) Neurogenic claudication due to lumbar spinal stenosis Metabolic syndrome Pulmonary embolism Sensorineural hearing loss (SNHL) of both ears 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 SINGLE FLARE 2012. Anxiety Surgical History Hx of arthroscopy of left knee Hx of spinal surgery History of right knee joint replacement H/O bilateral salpingo-oophorectomy History of carpal tunnel release RT/LEFT History of bilateral tubal ligation [place] teeth removed History of myringotomy History of esophagogastroduodenoscopy (EGD) History of breast biopsy R BREAST-BENIGN History of section X4 History of colonoscopy History of appendectomy History of bronchoscopy TO DX SARCODOSIS 2012 S/P lumbar spinal fusion S/P cervical spinal fusion GOOD ROM S/P partial hysterectomy Family History Brother Diabetes Colorectal cancer Mother Diabetes Stomach cancer Sarcoidosis Lymphoma Father Coronary heart disease Other Cancer Heart disease Hypertension No family history of adverse response to anesthesia No family history of bleeding disorder Social History Smoking Status: Never smoker Second Hand Exposure: No; Do You Dip or Chew Tobacco: No; Hx Alcohol Use: No Hx Substance Use: No Preferred Language: Greek Communication Ability: Effective Visual Impairment: No Limitations Mental Measurements Teacher Required: No Beliefs That Will Affect Care: Denominational Denominational Beliefs: Jewish marital status: Current Living Situation: Spouse Current Living Situation Comment: Also son and niece intermittently. Other Information That Helps Us Care for You: No Feels Safe at Home: Yes Safety Concerns: Feels Safe At This Time Assistive Devices: Walker Review of Systems All systems reviewed & are unremarkable except as noted in HPI & below. Physical Exam . Results & Data Results & Data Laboratory Results . Diagnostic Findings . PG Care Time/CCT Total # of Minutes Spent Total Time Spent with Patient: Total time spent is greater than 50% in coordination of care (as documented) at patient's floor/unit and/or counseling patient: Coding Level of Care Code 62396 IN/OBS CONSULT LVL 3,45M Diagnoses Spinal stenosis of lumbar region M48.061 LUE weakness R29.898 Postlaminectomy syndrome of lumbosacral region M96.1 Morbid obesity E66.01
[2024-10-30] MEDS: LEVOTHYROXINE SODIUM 75 MCG TABLET PO SCH (05:44)
--- NOTE | 2024-10-30 09:34 | Discharge Summary ---
Discharge Summary Date of Service October 30, 2024 Principal Dx & Hospital Course #1 = Principal Diagnosis (1) Intractable back pain: Plan 64-year-old female PMHx left hip replacement, anxiety, positive VIOLET, and chronic lumbar back pain with radiculopathy to ED for ongoing low back pain that radiates into the groin and tops of the thighs with associated numbness x 3-4 days [employer]. Associated "leakage" of urine for the same duration of time, no complete incontinence. Lumbar spine MRI w/ evidence of severe stenosis at L1-L2. Provided w/ multiple doses of pain medication in ED w/o significant relief. #Back pain H/o chronic lower back pain with radiculopathy, ~ 3-4 days [employer] w/ worsening low back pain and associated numbness/tingling at bilateral thighs and groin. Rating pain 7-8/10 on pain scale at time of admission, was 10/10 upon initial arrival. Without midline tenderness; No recent trauma. - Lumbar spine MRI - Severe spinal canal stenosis at L1-L2 - Fall precautions, Heating pad, lidocaine patch - Prednisone taper on discharge - recommended to take Tylenol 1000mg TID to aide with pain and use oxycodone every 6 hours for pain as needed until seen by Dr. Quezada. - Ortho spine consulted - recommending outpatient follow up with her surgeon, Dr. Quezada. -urinalysis negative -CBC/CMP 10/28 stable. #Hypothyroidism- Synthroid Home meds state pt on clonazepam but no dose or fill history so HOLD Patient discharged home on 10/30. Nurse navigator aware patient requires urgent office appt. w/ Dr. Quezada. Patient educated if numbness in LE worsens or she develops urinary/fecal incontinence to report back to ER. Admission HPI Per Admitting Provider 64-year-old female PMHx left hip replacement, anxiety, positive VIOLET, and chronic lumbar back pain with radiculopathy to ED for ongoing low back pain that radiates into the groin and tops of the thighs with associated numbness. States that approximately 3 to 4 days [employer] she had worsening low back pain, that began to radiate to bilateral hips and to private area. States that the numbness extends to bilateral feet, but she still has sensation and has not impaired her ability to walk. Denies loss of bowel or bladder, but has noticed increased "leakage" of urine for the same duration of time as the back pain worsen. Has not had any recent trauma. Does have SOB when the pain is at its worst, which she rates "more than 10/10" when asked to rate her maximum pain the pain scale. At time of visit, stating that her pain is a 7-8 out of 10 on the same pain scale. Describes it as constant and some shooting pain. Does have intermittent episodes of nausea without vomiting. Also had a few episodes of loose stool day prior to arrival, relating this to her recent dietary choices. Otherwise denying chest pain, shortness of breath, abdominal pain, vomiting/constipation, LUTS, weakness, headache, or fever/chills. Took all a.m. medications. Please see Dr. Murphy's attestation for adjustments/additions to treatment plan. Discharge Exam Constitutional WD/WN, vitals as above Eyes PERRL, conjunctivae normal, anicteric sclerae Psychiatric A+Ox3, euthymic affect Discharge Plan Discharge Items Patient Disposition: Home - Self-Care Reason For Visit: BACK PAIN Discharge Diagnosis: back pain, lumbar stenosis Condition on Discharge: Good Activity: Resume your previous activity Non-emergency contact: Primary Care Provider and Surgeon Call non-emergency contact if: you have any medication questions, your symptoms worsen, your pain is not controlled and your pain is worsening Follow-up/Referrals: Goyo Yanes MD [Primary Care Provider] - 11/05/24 9:45 am Diet: Regular Addtl Attending Provider Instructions: Ms. Villanueva, Kale were recently hospitalized for low back pain. You had an MRI that revealed severe spinal canal stenosis at L1-L2. You were evaluated by our orthospine surgeon that recommended to follow up with Dr. Quezada outpatient. Please see recommendations below regarding your discharge. 1. Please take the prednisone taper as directed. 2. Please take Tylenol 1000mg every 8 hours for pain. 3. Please use Oxycodone every 6 hours for breakthrough pain. 4. The remainder of your medications may be resumed. 5. Please follow up with your PCP within 1-2 weeks of discharge. If you develop any worsening symptoms including severe back pain, unable to control bowel or bladder function, or worsening numbness please report back to the ER for further care. Sincerely, Gretta Hines PA-C Pending Studies at Discharge: No Stand-Alone Forms: My [facility], Smoking Cessation Medications and DC Order Prescriptions: New prednisone 10 mg tablet 10 mg PO DIRECTED Qty: 22 0RF Rx Instructions: Take 4 tablets by mouth for one day followed by 3 tablets by mouth for 3 days followed by 2 tablets by mouth for 3 days followed by 1 tablet by mouth for 3 days. oxycodone 5 mg tablet 5 mg PO Q6H PRN (Reason: pain (scale score 7-10)) Qty: 10 0RF Continued cholecalciferol (vitamin D3) [Vitamin D3] 25 mcg (1,000 unit) capsule 1,000 units PO QAM vitamin B complex Capsule 1 cap PO QAM acetaminophen 500 mg Tablet 1,000 mg PO Q8H PRN (Reason: Pain) [id number]-1-xah-aci-ibioyjl-ast [krill oil] 1,167-155-56-80 mg Capsule 1 cap PO DAILY levothyroxine 50 mcg tablet 50 mcg PO UD Rx Instructions: TAKE ONE TABLET BY MOUTH 4 DAYS A WEEK AND ONE AND ONE-HALF TABLETS 3 DAYS A WEEK loratadine [Claritin] 10 mg Tablet 10 mg PO DAILY PRN (Reason: Congestion) clonazepam 1 tab PO DIRECTED PRN (Reason: Other) Rx Instructions: Unknown dose, no fill history. Aspir-81 81 mg PO DAILY Discharge Orders: Discharge Order (Routine); Ordered 10/30/24 Ordered By: Gretta Prasad/Other Patient Handouts: Oxycodone Oral Tablet Admission Data Admit Date/Time: 10/28/24 21:41 Attending Provider: Marcos Madsen Admit Provider: Beryl Murphy Primary Care Provider: Goyo Yanes Other Providers: Beryl Murphy; Reji Mednoza; Clifford Wise; Carmine Ennis; Ashley Giang; Naeem Ellison; Bulmaro Linton Other Interventions: Discharge Summary Assessment (RN) Last Done: 10/30/24 10:18 Hospital Stay Data Consultations 10/28/24 21:08 ED Decision to Admit Stat 10/28/24 22:08 Consult Orthopedic Spine Surgery Routine Diagnostic Imagining Performed 10/28/24 15:11 MR lumbar spine wo con Stat Pending Results Patient Have Any Pending Studies at Discharge: No Discharge Instructions Given to Patient (Per Discharging Provider) Ms. Villanueva, Kale were recently hospitalized for low back pain. You had an MRI that revealed severe spinal canal stenosis at L1-L2. You were evaluated by our orthospine surgeon that recommended to follow up with Dr. Quezada outpatient. Please see recommendations below regarding your discharge. 1. Please take the prednisone taper as directed. 2. Please take Tylenol 1000mg every 8 hours for pain. 3. Please use Oxycodone every 6 hours for breakthrough pain. 4. The remainder of your medications may be resumed. 5. Please follow up with your PCP within 1-2 weeks of discharge. If you develop any worsening symptoms including severe back pain, unable to control bowel or bladder function, or worsening numbness please report back to the ER for further care. Sincerely, Gretta Hines PA-C Total Time Total Time Spent Total Time Spent (In Minutes): 35 Total Time Includes: Examination of the Patient, Discharge Planning and Medication Reconciliation Coding Level of Care Code 26776 INP/OBS DISCH >30 MIN Diagnoses Intractable back pain M54.9
[2024-10-30 12:21] VITALS: BP 112/68; PULSE 82; RESP 16; TEMP 98.4; O2SAT 97
== END 2024-10-30 11:23 | disposition home or self-care (01) ==
LOC: ED 14:07 → EDINP 14:07 → SUATTDRO 21:41 → 3N 21:59

== ENCOUNTER 2025-01-01 06:17 | Inpatient (IN) ==
--- NOTE | 2024-11-29 09:57 | PAT Medication Instructions ---
Medication Instructions Date of Service November 29, 2024 Home Medications Medication Instructions Recorded naproxen 500 mg tablet 500 mg PO BID PRN pain #20 tabs 11/05/24 vitamin B complex 1 cap PO QAM cholecalciferol (vitamin D3) 25 mcg (1,000 unit) capsule (Vitamin D3) 1,000 units PO QAM acetaminophen 500 mg tablet 1,000 mg PO Q8H PRN Pain krill 1,000 mg-omega-3 170 mg-dha 50 mg-epa 80 gx-tulolm-bkydy capsule (krill oil) 1 cap PO QAM levothyroxine 50 mcg tablet 50 mcg PO UD loratadine 10 mg tablet (Claritin) 10 mg PO DAILY PRN Congestion naproxen 500 mg tablet 500 mg PO BID PRN pain aspirin 81 mg tablet,delayed release 81 mg PO QAM clonazepam 0.5 mg tablet 0.5 mg PO UD PRN Anxiety ferrous sulfate 325 mg (65 mg iron) tablet (iron) 325 mg PO UD zinc 1 tab PO DAILY ASK your surgeon for instructions naproxen 500 mg tablet 500 mg PO BID PRN pain ASK your prescriber and surgeon aspirin 81 mg tablet,delayed release 81 mg PO QAM STOP taking 2 weeks before surgery (or as soon as possible if surgery is within 2 weeks) krill 1,000 mg-omega-3 170 mg-dha 50 mg-epa 80 ln-lzktrh-zeqak capsule (krill oil) 1 cap PO QAM DO NOT take the morning of surgery vitamin B complex 1 cap PO QAM cholecalciferol (vitamin D3) 25 mcg (1,000 unit) capsule (Vitamin D3) 1,000 units PO QAM loratadine 10 mg tablet (Claritin) 10 mg PO DAILY PRN Congestion ferrous sulfate 325 mg (65 mg iron) tablet (iron) 325 mg PO UD zinc 1 tab PO DAILY Take morning of surgery With a small sip of water, OTHERWISE NOTHING TO EAT OR DRINK AFTER MIDNIGHT: acetaminophen 500 mg tablet 1,000 mg PO Q8H PRN Pain (if needed) levothyroxine clonazepam 0.5 mg tablet 0.5 mg PO UD PRN Anxiety (if needed) Take evening before surgery acetaminophen 500 mg tablet 1,000 mg PO Q8H PRN Pain (if needed) loratadine 10 mg tablet (Claritin) 10 mg PO DAILY PRN Congestion (if needed) clonazepam 0.5 mg tablet 0.5 mg PO UD PRN Anxiety (if needed) Other Notes If you have any questions please call us at [phone] or [phone] or [phone] or [phone]
--- NOTE | 2024-12-10 08:48 | Anesthesiology Consultation ---
Date of Service December 10, 2024 Assessment & Plan (1) Encounter for pre-operative examination: Chart Review Chart Review: Acceptable Risk for Surgery (pending PCP clearance ) and Patient seen in Pre Admission Testing - Awaiting PCP clearance 12/16/24 - Dr. Rizo- please fax preop testing to PCP per patient request Patient with bilateral anterior THAs in the past- would like caution with transferring and positioning - Possible TIA 06/05/24- imaging was WNL- patient states TIA was rule out, no history of CVA, no follow up with neurologist- discussed with Dr. Ron- no further symptoms since that time- patient can proceed as scheduled Per PAT appt on 12/10/24, no recent illness/disease exposures, illness related symptoms, or recent illness/disease positive tests. Will leave to surgeon's discretion if preop Covid testing needed Teaching & Discussion Pre-Anesthesia Teaching/Discussion Notes: Instructed NPO after midnight before surgery,except medications with 15 cc of water. Medication instructions provided according to the PAT guidelines. History Surgery Operation Date: 01/01/25 07:45 Proposed Procedures p L1-L2 Decompression and Fusion Exploration L2-L3 Fusion, Hardware Removal L2-3 Spinal Cord Monitoring - Kelton Quezada, Height/Weight Height: 5 ft 1 in Weight: 119.9 kg Allergies Allergy/AdvReac Type Severity Reaction Status Date / Time morphine Allergy Severe Dyspnea Verified 12/06/24 10:41 celecoxib [From Celebrex] Allergy Intermediate Swelling Verified 12/06/24 10:41 gabapentin Allergy Intermediate Blurry Verified 11/28/24 08:55 Vision Sulfa (Sulfonamide Allergy Intermediate Rash Verified 11/28/24 08:55 Antibiotics) levofloxacin Allergy Mild Rash (with Verified 12/06/24 10:41 IV medication) Quinolones Allergy Mild Rash Verified 11/28/24 08:55 wheat Allergy Mild GI Verified 12/06/24 10:41 sensitivity diphenhydramine AdvReac Intermediate "KEEPS ME Verified 11/28/24 08:55 AWAKE INSTEAD OF MAKING ME SLEEPY" hydroxyzine AdvReac Intermediate HYPERACTIVE Verified 11/28/24 08:55 prednisone AdvReac Intermediate PSYCHOTIC Verified 11/28/24 08:55 COMPLICATIONS Medications Home Medications Medication Instructions Recorded Confirmed Last Taken vitamin B complex 1 cap PO QAM 07/17/18 11/28/24 06/05/24 cholecalciferol (vitamin D3) 25 1,000 units PO QAM 06/01/20 11/28/24 06/05/24 mcg (1,000 unit) capsule (Vitamin D3) acetaminophen 500 mg tablet 1,000 mg PO Q8H PRN Pain 04/24/23 11/28/24 05/03/24 06:00 krill 1,000 mg-omega-3 170 mg-dha 1 cap PO QAM 10/06/23 11/28/24 06/05/24 50 mg-epa 80 [id number] capsule (krill oil) levothyroxine 50 mcg tablet 50 mcg PO UD 12/25/23 11/28/24 06/05/24 loratadine 10 mg tablet (Claritin) 10 mg PO DAILY PRN Congestion 05/03/24 11/28/24 05/03/24 naproxen 500 mg tablet 500 mg PO BID PRN pain #20 tabs 11/05/24 11/28/24 Unknown aspirin 81 mg tablet,delayed 81 mg PO QAM 11/28/24 11/28/24 Unknown release clonazepam 0.5 mg tablet 0.5 mg PO UD PRN Anxiety 11/28/24 11/28/24 Unknown ferrous sulfate 325 mg (65 mg 325 mg PO UD 11/28/24 11/28/24 Unknown iron) tablet (iron) zinc 1 tab PO DAILY 11/28/24 11/28/24 Unknown magnesium See Rx Instructions .Route .COMPLEX 12/10/24 12/10/24 Unknown Past Medical History Medical History Anxiety Chronic back pain RLE RADICULOPATHY; LE NEUROPATHY Dyslipidemia History of COVID-19 06/2022- fever, cough, resolved 06/2024- resolved History of fatty infiltration of liver Hx of migraines "seasonal/weather related" Hx of sarcoidosis Located to lung per patient No recent issues, single flare 2012 Hx of sinus tachycardia "happens about 1 week after surgeries" Hx of tinnitus Occasional Morbid obesity with BMI of 50.0-59.9, adult Osteoarthritis Postlaminectomy syndrome TIA (transient ischemic attack) Possible 06/05/24 Patient states this was rule out; no hx of CVA; currently on ASA daily Urinary incontinence Exercise / Class Metabolic Activity II 4-5 Yardwork/Stairs/Walk up hill (one flight of stairs - no chest pain or SOB ) Past Family History Family History Brother Diabetes Colorectal cancer Mother Diabetes Stomach cancer Sarcoidosis Lymphoma Father Coronary heart disease Other Cancer Heart disease Hypertension No family history of adverse response to anesthesia No family history of bleeding disorder Past Surgical History Surgical History H/O bilateral salpingo-oophorectomy History of appendectomy History of bilateral tubal ligation done w/last History of breast biopsy rt breast, benign History of bronchoscopy TO DX SARCODOSIS 2013 History of carpal tunnel release rt/lt History of section X4, last one had bilateral tubal ligation History of colonoscopy History of esophagogastroduodenoscopy (EGD) History of myringotomy History of right knee joint replacement 2019 History of total left hip arthroplasty 2023, [facility] [place] History of total left knee replacement History of total right hip arthroplasty 2023, [facility] [place] Hx of arthroscopy of left knee incorrect, had full replacement Hx of spinal surgery 2012, lumbar L3-4, L4-5, fusions 2017, lumbar L2-3, fusion S/P cervical spinal fusion ~2006, C4-C6; ROM "is fine, no limitations" S/P lumbar spinal fusion duplicate S/P partial hysterectomy [place] teeth removed Past Anesthesia History No Hx of Anesthesia Complications (with exception to right SYLVIA done in [place]- given ketamine post op - felt "very high" ) and No Family Hx of Anesthesia Complications History of PONV No Hx of PONV and No Hx of Motion Sickness Social History Smoking Status: Never smoker Do You Dip or Chew Tobacco: No Hx Alcohol Use: Yes alcohol intake frequency: holidays/special occasions only Hx Substance Use: No substance use type: does not use Review of Systems - Occ cough with dry weather Patient denies chest pain, shortness of breath, dyspnea on exertion, reflux, wheezing, palpitations. No hx of seizures, CVA, CO, apnea/snoring. No hx of blood clots or blood transfusions Physical Exam Vital Signs VITALS BP 104/63 P 93bpm TEMP 98.0 SP02 97% RESP 16 Constitutional no acute distress ENMT Mouth: no TMJ clicking Thyromental Distance: > or= 3.5 Finger Breadths (3.5) Mallampati Class: I Crowns to side teeth and molars Neck + short neck and + limited neck extension (minimal) Respiratory normal respiratory effort; no respiratory distress Auscultation: lungs clear to auscultation bilaterally; no wheezes Cardiovascular Rate/Rhythm: regular rate and regular rhythm Heart Sounds: no murmur Vessels: no carotid bruit Musculoskeletal Spine: no pain with cervical ROM Extremities: extremities normal to inspection Psychiatric Orientation: alert Lab Results Anesthesia Preop Results Results Anesthesia Widget: WBC 3.92 K/ul (4.8-10.8) L 12/10/24 Hgb 12.5 g/dl (12.0-16.0) 12/10/24 Hct 37.4 % (37.0-47.0) 12/10/24 Plt 207 K/uL (130-400) 12/10/24 Na 138 mmol/L (136-145) 12/10/24 K 4.1 mmol/L (3.5-5.1) 12/10/24 Cl 106 mmol/L (98-107) 12/10/24 CO2 26 mmol/L (21-32) 12/10/24 BUN 16 mg/dl (6-23) 12/10/24 Creat 0.64 mg/dl (0.6-1.2) 12/10/24 Glucose Level 165 mg/dl (70-99(Fasting)) H 12/10/24 PT 10.5 Seconds (9.0-12.0) 12/10/24 PTT 27 Seconds (21-31) 12/10/24 INR 1.0 (0.9-1.1) 12/10/24 Urine Color Dark Yellow 12/10/24 Urine Appearance Clear (Clear) 12/10/24 Urine pH 5.0 (4.5-7.5) 12/10/24 Urine Specific [place] 1.030 (1.000-1.030) 12/10/24 Urine Protein Negative (Negative) 12/10/24 Urine Glucose (UA) Negative (Negative) 12/10/24 Urine Ketones Trace (Negative) H 12/10/24 Urine Blood Negative (Negative) 12/10/24 Urine Nitrite Negative (Negative) 12/10/24 Urine Bilirubin Negative (Negative) 12/10/24 Urine Urobilinogen Negative (Negative) 12/10/24 Urine Leukocyte Esterase Negative (Negative) 12/10/24 Blood Type O Positive 12/10/24 Antibody Screen NEGATIVE 12/10/24 Testing Electrocardiogram Date: 06/05/24 Findings: + NSR @ (83bpm) Normal EKG per cardio Chest X-Ray Date: 12/10/24 Findings: + NAD Echocardiogram Date: 06/06/24 EF: 55-60% LV Function: normal RWMA: + none Other Findings: no LVH Mild TR Compared with study from 05/13/2017- no significant change Stress Test Date: 07/31/19 Type: DSE Resting EF: 65 to 70% Resting LV Function: normal Mild concentric LVH. Negative dobutamine stress echo for ischemia at 87% MPHR. Negative dobutamine stress EKG for ischemia at 87% MPHR. Other Testing Cervical spine MRI 09/09/24= Status post C5 corpectomy and C4-C6 anterior discectomy and fusion. Mild multilevel central canal stenosis, as described above. Congenitally narrow central canal. Normal cervical cord signal and caliber. Moderate multilevel neural foraminal stenosis, as detailed above. This is predominantly due to facet arthrosis and uncovertebral hypertrophy. Brain MRI 06/05/24= No acute findings in the head/brain. Neck CTA 06/05/24= No significant stenosis, occlusion, or dissection identified within the carotid or vertebral arteries Head CTA 06/05/24= No acute intracranial abnormality. Unremarkable CTA of the head.
[~2025-01-01 06:17] MED LIST changes: -BUPIVACAINE 0.25% 30 ML VIAL ONE; -BUPIVACAINE 0.5 % 5 MG/1 ML PF 10ML VIAL ONE; -EPINEPHrine INJ 1 MG/ML AMP ONE; -LR 500ML BOLUS, THEN 15ML/HR IV SCH; -LR 60ML/HR IV SCH; -ROPIVACAINE 0.5% HCL/PF 150 MG, BUPIVACAINE 0.75% MPF 20 ML, EPINEPHrine 0.15 MG, Ketor... INFIL SCH; -Scopolamine 1 MG TDSY TD SCH; -TRANEXAMIC ACID / 0.7% NACL 1,000 MG/100 ML BAG IV SCH; -TRANEXAMIC ACID 1,000 MG **IV Intra-op IV SCH; +[UNRECOGNIZED DRUG - REMARK] SCH
--- OUTSIDE RECORDS SUMMARY | 2025-01-01 06:22 | External Medical Summary | Continuity of Care Document ---
Author Name Unknown Organization [place] [id number] [address] [place] [phone] Care Team Providers Care Game Programer Name Role Phone Goyo Yanes Primary Care Physician [phone] Encounter [facility] [id number] Date(s): 12/16/24 - 12/16/24 [facility] [address] [facility] 207 [facility] [address] [phone] Encounter Diagnosis Pre-op exam(Discharge Diagnosis) - 12/16/24 Discharge Disposition: Home or Self Care Attending Physician: MD Yanes Christopher Encounter Type: Clinic Allergies, Adverse Reactions, Alerts Substance Criticality Severity [...] RASH Active Assessment and Plan Extracted from: Title:Pre-Op Note: Office Visit Note Author:Bright leblanc DO, Alonna Paige Date:12/16/24 1.Pre-op exam - Patient has been medically optimized for surgery - PMHand medications have been reviewed. - RCRI 0 - Counseled patient against the use of aspirin and NSAIDs prior to surgery as it increases the risk of perioperative bleeding.Additional medication considerations should be made by patient's surgeon and anesthesiologist. - Reviewed patient's labs and CXR, which were ultimately wnl. EKG and Echo from 05/2024 reviewed and unremarkable. - Pre-operative note completed and sent with thepatient. No additional forms available at visit. - Advised against addition of Vitamin K supplementation, reviewed recommendations for Vitamin D. Immunizations Given and Recorded Vaccine Date Status Refusal Reason SARS-CoV-2 (COVID-19) mRNA-vacc - [id number] 08/15/23 Recorded zoster vaccine, inactivated 07/28/23 Recorded pneumococcal 20-valent conjugate vaccine 07/21/23 Recorded SARS-CoV-2 [...] 12/18/20 R ecorded SARS-CoV-2 (COVID-19) mRNA-1273 vaccine 11/23/20 R ecorded SARS-CoV-2 (COVID-19) mRNA-1273 vaccine 4 [...] information-source unspecified 4Result Comment: duplicate 5Result Comment: [facility] [place] [place] 6Result Comment: [facility] [place] [place] duplicate 7Result Comment: [facility] 8Result Comment: 2020-11-24: Historical information-source unspecified 9Result Comment: 2020-11-24: Historical information-source unspecified 10Result Comment: 2020-11-24: Historical information-source unspecified 11Result Comment: 2020-11-24: Historical information-source unspecified 12Result Comment: 2020-11-24: Historical information-source unspecified 13Result Comment: 2020-11-24: Historical information-source unspecified 14Result Comment: 2020-11-24: Historical information-source unspecified Medications aspirin 81 mg oral capsule Start: 06/20/24 12:51:00 PM EDT Start Date: 06/20/24 Status: Ordered Repeat number: 1 Claritin Start: 03/07/22 8:51:00 AM EDT, 10 mg =, Daily, PRN Start Date: 03/07/22 Status: Ordered Repeat number: 1 clonazePAM 0.5 mg oral tablet Start: 06/05/24 11:50:00 AM EDT, 0.5 tab, PO, qhs, Disp# 30 tab, Pharmacy: [id number] Start Date: 06/05/24 Status: Ordered Quantity: 30.0 Unit: tab Repeat number: 1 Feosol 325 mg (65 mg elemental iron) oral tablet Start: 12/16/24 10:37:00 AM EST, 1 tab, PO, tid Start Date: 12/16/24 Status: Ordered Repeat number: 1 Kerasal AL 12% topical lotion Start: 12/16/24 10:37:00 AM EST, 1 appl, topical, qAM Start Date: 12/16/24 Status: Ordered Repeat number: 1 Daniella Krill [employer] [place]-3 oral tablet, chewable Start: 10/30/23 11:00:00 AM EST, 1 cap, Daily, 1 Unknown, Unknown Start Date: 10/30/23 Status: Ordered Repeat number: 1 levothyroxine 50 mcg (0.05 mg) oral tablet Start: 12/16/24 11:14:00 AM EST, See Instructions, Disp# 45 tab, Refills: 5, TAKE ONE TABLET BY MOUTH 4 DAYS A WEEK AND ONE AND ONE-HALF TABLETS 3 DAYS A WEEK, Pharmacy: [facility] [place] [address] Start Date: 12/16/24 Status: Ordered Quantity: 45.0 Unit: tab Repeat number: 6 lidocaine topical 5% patch Start: 03/20/24 8:44:00 AM EDT, See Instructions, Disp# 56 patch, Refills: 0, APPY 1 PATCH FOR 12 HOURS TO AFFECTED AREA NEEDED FOR PAIN. REMOVE PATHCH AFTER 12 HOURS, Pharmacy: [email or web address] Start Date: 03/20/24 Status: Ordered Quantity: 56.0 Unit: patch Repeat number: 1 magnesium (as citrate) 83 mg oral tablet, chewable Start: 12/16/24 10:37:00 AM EST Start Date: 12/16/24 Status: Ordered Repeat number: 1 Narcan 4 mg/0.1 mL nasal spray Start: 02/07/23 5:02:00 PM EDT, 4 mg =, intranasal, ONCE, Disp# 2 each, Refills: 1, may repeat every2 to 3 minutes until patient responds, Pharmacy: [facility] [place] [address] Start Date: 02/07/23 Status: Ordered Quantity: 2.0 Unit: each Repeat number: 2 One Touch Finepoint (25G) Lancets Start: 03/20/24 8:44:00 AM EDT, See Instructions, Disp# 30 each, Refills: 11, home glucose testing daily E11.9, Pharmacy: [email or web address] Start Date: 03/20/24 Status: Ordered Quantity: 30.0 Unit: each Repeat number: 12 One Touch Verio Glucose Monitor Start: 03/09/20 2:24:00 PM EDT, See Instructions, Disp# 1 each, Refills: 1, Use to check blood sugardaily, Note to Pharmacy: Dx E 11.9, Pharmacy: [place] [address] Start Date: 03/09/20 Status: Ordered Quantity: 1.0 Unit: each Repeat number: 2 One Touch Verio Test Strips Start: 03/20/24 8:44:00 AM EDT, See Instructions, Disp# 30 each, Refills: 11, use to check blood sugar daily, Note to Pharmacy: Dx E 11.9, Pharmacy: [place] [address] Start Date: 03/20/24 Status: Ordered Quantity: 30.0 Unit: each Repeat number: 12 ONETOUCH DELICA PLUS 33G LANCET Start: 11/18/24 12:16:00 PM EST, ONETOUCH DELICA PLUS 33G LANCET, See Instructions, Disp# 100 each, Refills: 2, USE TO TEST DAILY, Pharmacy [place] [address] Start Date: 11/18/24 Status: Ordered Quantity: 100.0 Unit: each Repeat number: 1 potassium ACETATE Start: 12/16/24 10:37:00 AM EST Start Date: 12/16/24 Status: Ordered Repeat number: 1 Tylenol 500 mg oral tablet Start: 02/13/24 12:45:00 PM EDT, 2 tab, PO, q8h Start Date: 02/13/24 Status: Ordered Repeat number: 1 Vitamin B Complex oral capsule Start: 10/30/23 11:02:00 AM EST, 1 cap, PO, Daily Start Date: 10/30/23 Status: Ordered Repeat number: 1 Vitamin D3 Start: 07/06/18 1:58:00 PM EDT, 1,000 Int_Unit =, PO, Daily Start Date: 07/06/18 Status: Ordered Repeat number: 1 Zinc Start: 01/29/24 9:01:00 AM EDT, 1 tab, Daily Start Date: 01/29/24 Status: Ordered Repeat number: 1 Mental Status 12/16/24 Barriers to Learning one year None evide nt Mandatory Health Literacy Documentation Yes Health Literacy Communication Barriers N ever Primary Language Rwandan Problem List Condition Confirmation Course Effective Dates Status H ealth Status Informant Anemia Confirmed Active Anxiety Confirmed 07/18/08 Active Arthritis of multiple sites Confirmed Active Arthritis of right hip Confirmed Active Carpal tunnel syndrome, left Confirmed Active Chronic pain Confirmed Active Fatty liver Confirmed Active Fibromyalgia Confirmed Active LANG (generalized anxiety disorder) Confirmed Active Hx of fusion of cervical [...] Diagnosis Diagnosis Type Effective Dates Health Status Cl[facility] Service Informant Pre-op exam Discharge Diagnosis 12/16/24 Non-Specified Procedures Procedure Date Related Diagnosis Body [...] burn 65 Complet ed Salpingo-oophorectomy [address] [place] [address] Impression: ACR BI-RADS CATEGORY 1: NEGATIVE 1. No evidence of malignancy [address] [place] [address] Impression: 1. No acute infectious or inflammatory findings are identified in the abdomen or pelvis 2. Punctate nonobstructing left renal calculus 3. Hepatomegaly and hepatic steatosis 3non bleeding internal hemorrhoids The examination was normal no specimens collected repeat in 5 years [facility] Impression: 1.Stable exam from the study obtained less than one month earlier on 02/06/2023 2. No acute fracture or bone marrow edema 3. Degenerative and postoperative changes 4. Neural foraminal narrowing without significant central canal stenosis 5[facility] Impression: 1. No acute bony abnormality is seen involving the lumbar spine 2. Osteopenia with postsurgical and mild spondylotic change 3. Advanced arthritic change is noted in the right hip 6[facility] Impression: 1. No acute bony abnormality [...] microscopic evaluation, The terminal ileum appears normal. [facility] 58Exaimed portion of the ileum was normal. [...] 15 years ago - bilat buttocks 66bilateral Vital Signs Most recent to oldest [Reference Range]: 1 Height 155.8 cm (12/16/24 10:39 AM) Heart Rate 88 bpm (12/16/24 10:39 AM) Respiratory Rate 17 br/min (12/16/24 10:39 AM) Blood Pressure 134/76mmHg (12/16/24 10:39 AM) Social History Social History Type Response Smoking Status Never smoked cigaret odalis Sex Female Sex Representation Female (finding) Implantable Device List Procedure Provider Procedure Date Device Type Site Unknown Unknown 04/30/24 Unknown Unknown Device Identifier Serial Number Lot or Batch Number Manufacturing Date Expiration Date Distinct Identification Code MRI Safety Implantable Status Assigning Authority Unknown Unknown [id number] Unknown 07/31/28 Unknown Unknown Active Unk nown Unknown Unknown [id number] Unknown 06/23/28 Unknown Unknown Active Unkn own Unknown Unknown [id number] Unknown 03/27/25 Unknown Unknown Active Unkn own Unknown Unknown [id number] Unknown 09/13/30 Unknown Unknown Active Un known Unknown Unknown [id number] Unknown 11/28/28 Unknown Unknown Active Unkn own Procedure Provider Procedure Date Device Type Site Unknown Unknown 02/13/24 Unknown Unknown Device Identifier Serial Number Lot or Batch Number Manufacturing Date Expiration Date Distinct Identification Code MRI Safety Implantable Status Assigning Authority Unknown Unknown [id number] Unknown 12/24/28 Unknown Unknown Active Unkn own Unknown Unknown [id number] Unknown 07/21/28 Unknown Unknown Active Unk nown Unknown Unknown [id number] Unknown 08/02/28 Unknown Unknown Active Un known Unknown Unknown [id number] Unknown 09/07/30 Unknown Unknown Active Un known Unknown Unknown [id number] Unknown 12/28/27 Unknown Unknown Active Unkn own FCM Outpt Note * MD Yanes Christopher: MODIFY MD Yanes Christopher: MODIFY Event Display: FCM Outpt Note Authored Date: [id number] Chief Complaint Here for Pre-operative examination History of Present Illness Beryl is a 64F w/ PMH of anemia, chronic pain, fatty liver, LANG, HLD, obesity, prediabetes, hypothyroidism, and urinary incontinence who presents for pre-op clearance. Preoperative evaluation PMH reviewed and updated. Requested by/Surgeon: Dr. Quezada Planned surgery:intermediate risk (intraperitoneal, intrathoracic, CEA, head/neck, ortho, prostate) Planned anesthesia:general Exercise tolerance:4 METs (climbing 1 flight, walking up hill, level ground @ 4mph, heavy house work) Bleeding tendency/history: None, on aspirin, PT/INR wnl Substance use per social history in EHR Prior response to anesthesia:4 C/s, 2 Knees, 2 Hips, 2 Fusions No hx of negative response to anesthesia Revised Cardiac Risk Index: Score [0] [_] High Risk Surgery [_] Ischemic Heart Disease [_] History of CHF [_] History of cerebrovascular disease [_] Insulin therapy for DM [_] Pre-op Cr >2 Physical Exam Vitals & Measurements HR:88(Monitored) RR:17 BP:134/76 SpO2:98% HT:155.8cm PHQ2 Data(Data Documented on:12/16/2024 10:38) Emotional health assessment NEGATIVE General: NAD, well appearing, alert, interactive HEENT: NC/AT,patent nares, MMM Neck: Supple, no LAD, normal ROM Respiratory: Non-labored, no wheezing/rhonchi/rales, CTAB Cardiovascular: RRR, normal S1/S2, no murmur/rubs/gallops Abdomen: Soft, non-distended, no TTP, normoactive bowel sounds, no masses Extremities: Cap refill <2s, 2+ dp bilaterally, no peripheral edema Neurologic: Alert/oriented X3,sensation intact Skin: Intact, no rashes/lesions/erythema Assessment/Plan 1.Pre-op exam - Patient has been medically optimized for surgery - PMHand medications have been reviewed. - RCRI 0 - Counseled patient against the use of aspirin and NSAIDs prior to surgery as it increases the riskof perioperative bleeding.Additional medication considerations should be made by patient's surgeon and anesthesiologist. - Reviewed patient's labs and CXR, which were ultimately wnl. EKG and Echo from 05/2024 reviewed and unremarkable. - Pre-operative note completed and sent with thepatient. No additional forms available at visit. - Advised against addition of Vitamin K supplementation, reviewed recommendations for Vitamin D. Attestation Pt seen and examined in concert with Dr. Anaya, agree with history and physical as documented above. Plan reviewed in detail. Any corrections or additions are noted here - preoperative evaluation for risk stratification and optimization with risks and supports as noted above. Problem List/Past Medical History Ongoing Anemia Anxiety Arthritis of multiple sites Arthritis of right hip Carpal tunnel syndrome, left Chronic pain Fatty liver Fibromyalgia Fusion of lumbar spine LANG (generalized anxiety disorder) H/O sarcoidosis| Status: Inactive H/O sprain of wrist| Status: Inactive Hip osteoarthritis Hx of fusion of cervical spine Hyperlipidemia, mixed Hypothyroidism (acquired) Insomnia Intertrigo Loss of feeling or sensation Lumbar disc herniation Mediastinal lymphadenopathy| Status: Inactive Morbid obesity Palpitations| Status: Inactive Prediabetes Right lumbar radiculopathy Sacral radiculopathy Sarcoid| Status: Inactive Tachycardia Total knee replacement status Urinary incontinence in female Uterine leiomyoma| Status: Inactive Resolved Acute bilateral upper abdominal pain Acute URI Anal fissure Anxiety Mervat infection, oral Cellulitis of right buttock Cervical spinal stenosis Chest pain Chest tightness Complicated migraine Contact dermatitis due to radiation Depressive disorder Edema Encounter for health maintenance examination in adult Epistaxis Fall from slipping on ice Fatigue Foot pain Hyperglycemia Hypokalemia Knee osteoarthritis Knee pain Perianal dermatitis Pneumonitis Primary osteoarthritis of right knee Radiation burn Renal stone Right calf pain Right knee pain Sprain of wrist Thrush Unspecified urinary incontinence Procedure/Surgical History History of total hip arthroplasty| Service Date: 2023Mammogram| Service Date: 05/04/2023Tof abdomen and pelvis| Service Date: 04/18/2023olonoscopy| Service Date: 03/13/2023X-ray tomography of lumbar spine| Service Date: 03/07/2023MRI of lumbar spine without contrast| Service Date: 03/07/2023X-ray tomography of pelvis and right hip| Service Date: 03/07/2023olonoscopy| Service Date: 03/06/2023T angiography with contrast| Service Date: 07/03/2022hest X-ray| Service Date: 07/01/2022Ultrasonography of left breast| Service Date: 03/25/2022T angiography of chest with contrast| Service Date: 03/11/2022oppler ultrasonography of right lower extremity vein| Service Date: 03/11/2022ECG (electrocardiography) procedure| Service Date: 2bilateral digital screenin mammogram tomosynthesis with synthetic 2D with CAD| Service Date: 2CT angio chest PE protocol| Service Date: 04/16/2021TOTAL KNEE ARTHROPLASTY| Service Date: 04/06/2021TOTAL KNEE ARTHROPLASTY| Service Date: 06/23/2020Venous doppler ultrasonography Left leg| Service Date: 01/22/2020Mammogram| Service Date: 04/30/2019Colonoscopy| Service Date: 06/29/2018Pelvis X-ray| Service Date: 06/22/2018CT of abdomen and pelvis without contrast| Service Date: 05/22/2018Chest X-ray| Service Date: 05/22/2018Chest angiography| Service Date: 05/22/2018Mammogram| Service Date: 04/18/2018Chest X-ray| Service Date: 02/28/2018Chest x-ray| Service Date: 12/28/2017Chest X-ray| Service Date: 12/01/2017Chest angiography| Service Date: 09/03/2017Chest X-ray| Service Date: 09/03/2017Chest X-ray| Service Date: 07/14/2017ECG| Service Date: 07/14/2017CT of head| Service Date: 07/14/2017Ultrasound scan of upper abdomen| Service Date: 06/06/2017Surgical pathology procedure| Service Date: 05/18/2017Upper GI endoscopy| Service Date: 05/17/2017Upper GI endoscopy| Service Date: 05/17/2017Echocardiogram| Service Date: 05/12/2017MRI of brain| Service Date: 05/12/2017Mammogram| Service Date: 04/13/2017US kidneys| Service Date: 04/09/2017CT of abdomen and pelvis| Service Date: 04/06/2017LWR XTR VASC STDYBILAT| Service Date: 03/17/2017CXR - Chest X-ray| Service Date: 03/17/2017Ultrasound| ServiceDate: 02/08/2017Ultrasound Biliary| Service Date: 02/08/2017CT of chest| Service Date: 10/23/2016CXR - Chest X-ray| Service Date: 10/23/2016Pulmonary venous angiogram| Service Date: 2015Ultrasound| Service Date: 12/08/2015Fusion of lumbar spine| Service Date: 2015Ultrasound| Service Date: 05/15/2015Colonoscopy| Service Date: 06/07/2013Upper GI endoscopy| Service Date: 06/07/2013Colonoscopy| Service Date: 06/07/2013Endoscopy and biopsy of upper gastrointestinal tract| Service Date: 06/07/2013Colonoscopy| Service Date: 06/07/2013Ultrasound- Abdomen| Service Date: 06/03/2013Fusion of joint of lumbar spine with internal fixation by posterior approach| Service Date: 2012Colonoscopy| Service Date: 10/25/2011Endoscopy and biopsy| Service Date: 10/25/2011Echocardiogram| Service Date: 11/06/2008Holter monitor| Service Date: 2007Embolization of uterine artery| Service Date: 1999Tubal ligation| Service Date: 1997CARPAL TUNNEL SURGERY| Service Date: 1984Radiation burnCervical spinal fusionAppendectomyHistory of total hysterectomyPartial hysterectomyCesarean sectionCesarean sectionBronchoscopySalpingo-oophorectomy Medications acetaminophen(Tylenol 500 mg oral tablet), 1000 mg= 2 tab, PO, q8h ammonium lactate topical(Kerasal AL 12% topical lotion), 1 appl, topical, qAM aspirin(aspirin 81 mg oral capsule) cholecalciferol(Vitamin D3), 1000 Int_Unit, PO, Daily clonazePAM(clonazePAM 0.5 mg oral tablet), 0.25 mg= 0.5 tab, PO, qhs diabetes supplies(One Touch Verio Test Strips), See Instructions, 11 refills diabetes supplies(One Touch Finepoint (25G) Lancets), See Instructions, 11 refills diabetes supplies(One Touch Verio Glucose Monitor), See Instructions, 1 refills ferrous sulfate(Feosol 325 mg (65 mg elemental iron) oral tablet), 325 mg= 1 tab, PO, tid levothyroxine(levothyroxine 50 mcg (0.05 mg) oral tablet), See Instructions, 5 refills lidocaine topical(lidocaine topical 5% patch), See Instructions loratadine(Claritin), 10 mg, Daily magnesium citrate(magnesium (as citrate) 83 mg oral tablet, chewable) multivitamin(Vitamin B Complex oral capsule), 1 cap, PO, Daily naloxone(Narcan 4 mg/0.1 mL nasal spray), 4 mg, intranasal, ONCE, 1 refills omega-3 polyunsaturated fatty acids(Daniella Kr[employer] [place]-3 oral tablet, chewable), 1 cap, Daily potassium ACETATE unlisted medication(ONETOUCH DELICA PLUS 33G LANCET), See Instructions zinc sulfate(Zinc), 1 tab, Daily Allergies celecoxib (Moderate)swelling gabapentin (Moderate)Blurry Vision hydrOXYzine (Moderate)HYPERACTIVE, hyperactive levoFLOXacin (Mild)RASH morphine (Mild)SOB - Shortness of breath Allergy (Diphenhydramine HCl)Propensity to adverse reaction Levaquinrash, per pt IV Pharbedryl?, Unknown? 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 Exercise - Does not exercise Home/Environment Lives with:Children, Spouse Home equipment:tens unit Substance Abuse - Denies Substance Abuse Tobacco - Denies Tobacco Use Intake (IView) Smoking History Cigarette smoker: Never smoked cigarettes Tobacco Product Use: Never used other tobacco products Family History Breast cancer: Sister. CABG - Coronary artery bypass graft: Father. Cancer of stomach: Mother. Colon cancer: Brother. Diabetes: Mother and Brother. HTN (hypertension): Father and PGF. Heart attack: PGF. Lymphoma: Mother. Sarcoidosis: Mother. Health Status Family Member(s) Immunizations Vaccine Date Status SARS-CoV-2 (COVID-19) mRNA-vacc - [id number] 08/15/2023 Recorded zoster vaccine, inactivated 07/28/2023 Recorded pneumococcal 20-valent conjugate vaccine 07/21/2023 Recorded SARS-CoV-2 mRNA (Pfizer 12+) bivalent 09/23/2022 Recorded Comments : 2022-10-24: Historical information-source unspecified influenza virus vaccine, inactivated 08/04/2022 Given SARS-CoV-2 (COVID-19) mRNA-1273 vaccine 02/07/2022 Recorded Comments : 2022-02-09: Historical information-source unspecified SARS-CoV-2 (COVID-19) mRNA-1273 vaccine 06/21/2021 Recorded SARS-CoV-2 (COVID-19) mRNA-1273 vaccine 12/21/2020 Recorded Comments : 2023-07-24: Historical information-source unspecified SARS-CoV-2 (COVID-19) mRNA-1273 vaccine 12/18/2020 Recorded SARS-CoV-2 (COVID-19) mRNA-1273 vaccine 11/23/2020 Recorded SARS-CoV-2 (COVID-19) mRNA-1273 vaccine 11/20/2020 Recorded Comments : [facility] influenza virus vaccine, inactivated 08/04/2020 Given tetanus/diphtheria/pertuss, acel (Tdap) 03/29/2017 Given influenza virus vaccine, inactivated 08/17/2016 Given influenza virus vaccine, inactivated - Not Given Comments : Contraindicated - Do not give influenza virus vaccine, inactivated 08/06/2015 Recorded pneumococcal 23-valent vaccine 07/19/2013 Recorded Comments : 2020-11-24: Historical information-source unspecified tetanus/diphtheria/pertuss, acel (Tdap) 08/18/2010 Recorded Comments : 2020-11-24: Historical information-source unspecified influenza virus vaccine, H1N1 09/13/2009 Recorded Comments : 2020-11-24: Historical information-source unspecified hepatitis B adult vaccine 01/24/2000 Recorded Comments : 2020-11-24: Historical information-source unspecified hepatitis B adult vaccine 08/18/1999 Recorded Comments : 2020-11-24: Historical information-source unspecified tetanus toxoids-diphtheria, Td (Adult) 07/21/1999 Recorded Comments : 2020-11-24: Historical information-source unspecified hepatitis B adult vaccine 07/21/1999 Recorded Comments : 2020-11-24: Historical information-source unspecified Recommendations Health Maintenance Pending(in the next year) OverDue Adult Influenza Vaccine due04/22/24and every 1year Due Adult Social Determinants of Health Screening due12/16/24Unknown Frequency Shingles Vaccine due12/16/24One-time only Due In Future Breast Cancer Screening not due until05/04/25and every 731day Body Mass Index not due until11/06/25and every 366day Satisfied(in the past 1 year) Satisfied Body Mass Index on07/17/24.Satisfied by YAJAIRA Pineda [place] Electronic Signature on File Electronically Reviewed/Signed by: Heather Anaya DO Author Signature Dt/Tm:12/16/2024 11:31 AM Resident Department of Family Medicine Electronically Reviewed/Signed by: MD Marleni Burtonigner Signature Dt/Tm: 12/17/2024 08:50AM Department of Family Medicine [facility] Patient Care team information Care Team Personnel Name: MD Jordy, German Car Position: Physician - Family Med Member Role: Lifetime Relationship Address: [address] [place] [address] Telecom: [phone] Name: MD Yanes Christopher Position: Physician - Family Med Member Role: Primary Care Provider Address: [address] [place] [address] Telecom: [phone] Name: Torsten Newsome Ann Position: Pharmacist Member Role: Pharmacy - Lifetime Name: DO Pérez Sameer Position: Resident Member Role: Lifetime Relationship Address: [address] [place] [address] Telecom: [phone] Name: Torsten Stevens Brittani Position: Pharmacist Member Role: Pharmacy - Lifetime Care Team Related Persons Name: ISABELLE MCKEON Name: GERMAN COTTON Name: CARLITOS COTTON Insurance Providers Guarantor name: BERYL COTTON Health Plan Information #: 1 Payer: [employer] Member Number: [id number] Policy Number: NA Group Number: [id number] Health Plan Information #: 2 Payer: [employer] Member Number: [id number] Policy Number: NA Group Number: [id number]"
[2025-01-01] MEDS: GABAPENTIN 600 MG DOSE PO SCH (06:59)
[2025-01-01] MEDS: LR 60ML/HR IV SCH (06:59)
[2025-01-01] MEDS: ACETAMINOPHEN 500 MG TAB PO SCH (07:02)
[2025-01-01] MEDS: LR 15ML/HR IV SCH (07:02)
[2025-01-01] MEDS ORDERED: ROCURONIUM BROMIDE 10 MG/ML 5 ML VIAL IV ONE ×2 (07:06→08:21)
[2025-01-01] MEDS ORDERED: ONDANSETRON INJ 2 MG/ML 2 ML VIAL ONE (07:06)
[2025-01-01] MEDS ORDERED: PROPOFOL IV EMULSION 10 MG/ML 20 ML VIAL IV ONE ×3 (07:06→09:10)
[2025-01-01] MEDS ORDERED: DEXAMETHASONE SOD INJ 4 MG/ML VIAL ONE (07:06)
[2025-01-01] MEDS ORDERED: PHENYLEPHRINE HCL 10 MG/ML VIAL ONE (07:06)
[2025-01-01] MEDS ORDERED: fentaNYL citrate PF 100 MCG/2 ML VIAL ONE ×2 (07:07→08:26)
[2025-01-01] MEDS ORDERED: LIDOCAINE 2% 2 ML VIAL/AMP(20MG/ML) INFIL ONE (07:08)
[2025-01-01] MEDS ORDERED: MIDAZOLAM HCL 1 MG/ML 2ML VIAL ONE ×2 (07:08→07:58)
--- NOTE | 2025-01-01 07:43 | History & Physical Bridge Note ---
Date of Service January 01, 2025 History & Physical Bridge Note I have examined the patient, reviewed the History & Physical and in the interval since the performance of the History & Physical I have noted the following changes of clinical significance: no changes noted
--- NOTE | 2025-01-01 07:44 | History & Physical Report ---
Date of Service January 01, 2025 Assessment & Plan (1) Spinal stenosis of lumbar region with radiculopathy: Plan: L1-L2 decompression and fusion exploration L2-L3 fusion hardware removal L2-L3 History of Present Illness Chief Complaint: Back and leg pain Primary Care Provider: Goyo Yanes MD This is a 64-year-old female who presents chronic persistent back and leg pain after failing course of nonoperative care is here for surgical intervention. Allergies Allergy/AdvReac Type Severity Reaction Status Date / Time morphine Allergy Severe Dyspnea Verified 01/01/25 06:22 celecoxib [From Celebrex] Allergy Intermediate Swelling Verified 01/01/25 06:22 Sulfa (Sulfonamide Allergy Intermediate Rash Verified 01/01/25 06:22 Antibiotics) levofloxacin Allergy Mild Rash (with Verified 01/01/25 06:22 IV medication) Quinolones Allergy Mild Rash Verified 01/01/25 06:22 wheat Allergy Mild GI Verified 01/01/25 06:22 sensitivity diphenhydramine AdvReac Intermediate "KEEPS ME Verified 01/01/25 06:22 AWAKE INSTEAD OF MAKING ME SLEEPY" gabapentin AdvReac Intermediate Blurry Verified 01/01/25 06:22 Vision hydroxyzine AdvReac Intermediate HYPERACTIVE Verified 01/01/25 06:22 prednisone AdvReac Intermediate PSYCHOTIC Verified 01/01/25 06:22 COMPLICATIONS Home Medications Medication Instructions Recorded Confirmed Type vitamin B complex 1 cap PO QAM 07/17/18 01/01/25 History cholecalciferol (vitamin D3) 25 1,000 units PO QAM 06/01/20 01/01/25 History mcg (1,000 unit) capsule (Vitamin D3) acetaminophen 500 mg tablet 1,000 mg PO Q8H PRN Pain 04/24/23 01/01/25 History krill 1,000 mg-omega-3 170 mg-dha 1 cap PO QAM 10/06/23 01/01/25 History 50 mg-epa 80 oc-zvtwnw-hklrw capsule (krill oil) levothyroxine 50 mcg tablet 50 mcg PO UD 12/25/23 01/01/25 History loratadine 10 mg tablet (Claritin) 10 mg PO DAILY PRN Congestion 05/03/24 01/01/25 History naproxen 500 mg tablet 500 mg PO BID PRN pain #20 tabs 11/05/24 01/01/25 Rx aspirin 81 mg tablet,delayed 81 mg PO QAM 11/28/24 01/01/25 History release clonazepam 0.5 mg tablet 0.5 mg PO UD PRN Anxiety 11/28/24 01/01/25 History ferrous sulfate 325 mg (65 mg 325 mg PO UD 11/28/24 01/01/25 History iron) tablet (iron) zinc 1 tab PO DAILY 11/28/24 01/01/25 History magnesium See Rx Instructions .Route .COMPLEX 12/10/24 01/01/25 History Past Med/Surg History Problem List (Updated 01/01/25 @ 07:43 by Kelton Quezada DO) Spinal stenosis of lumbar region with radiculopathy Encounter for pre-operative examination Cervical radiculopathy Arm paresthesia, left (Acute) Sinus tachycardia (Acute) Spinal stenosis of lumbar region (Acute) Lumbar back pain with radiculopathy affecting right lower extremity (Acute) Lipedema Fatty infiltration of liver Sacroiliac joint pain Postlaminectomy syndrome of lumbosacral region Bursitis of right hip Positive VIOLET (antinuclear antibody) 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 Sensorineural hearing loss (SNHL) of both ears Metabolic syndrome Neurogenic claudication due to lumbar spinal stenosis Morbid obesity (Chronic) Migraine (Chronic) Medical History (Updated 01/01/25 @ 07:43 by Kelton Quezada DO) TIA (transient ischemic attack) Possible 06/05/24 Patient states this was rule out; no hx of CVA; currently on ASA daily Hx of tinnitus Occasional Hx of sinus tachycardia "happens about 1 week after surgeries" Postlaminectomy syndrome Hx of migraines "seasonal/weather related" History of fatty infiltration of liver Dyslipidemia Prediabetes Per PCP records Hypothyroidism History of COVID-19 06/2022- fever, cough, resolved 06/2024- resolved Morbid obesity with BMI of 50.0-59.9, adult Urinary incontinence Osteoarthritis Chronic back pain RLE RADICULOPATHY; LE NEUROPATHY Hx of sarcoidosis Located to lung per patient No recent issues, single flare 2013 Anxiety Surgical History [place] [facility] [place] [facility] [place] of total left knee replacement Hx of arthroscopy of left knee incorrect, had full replacement Hx of spinal surgery 2013, lumbar L3-4, L4-5, fusions 2018, lumbar L2-3, fusion History of right knee joint replacement 2019 H/O bilateral salpingo-oophorectomy History of carpal tunnel release rt/lt History of bilateral tubal ligation done w/last [place] teeth removed History of myringotomy History of esophagogastroduodenoscopy (EGD) History of breast biopsy rt breast, benign History of section X4, last one had bilateral tubal ligation History of colonoscopy History of appendectomy History of bronchoscopy TO DX SARCODOSIS 2012 S/P lumbar spinal fusion duplicate S/P cervical spinal fusion ~2007, C4-C6; ROM "is fine, no limitations" S/P partial hysterectomy Family History Brother Diabetes Colorectal cancer Mother Diabetes Stomach cancer Sarcoidosis Lymphoma Father Coronary heart disease Other Cancer Heart disease Hypertension No family history of adverse response to anesthesia No family history of bleeding disorder Social History Smoking Status: Never smoker Second Hand Exposure: No; Do You Dip or Chew Tobacco: No; Tobacco Cessation Education Requested by Patient: No Hx Alcohol Use: Yes Hx Substance Use: No Preferred Language: Portuguese Communication Ability: Effective Visual Impairment: No Limitations Dirt Contractor Required: No Beliefs That Will Affect Care: None marital status: Current Living Situation: Spouse Current Living Situation Comment: Also son and niece intermittently. Other Information That Helps Us Care for You: No Feels Safe at Home: Yes Safety Concerns: Feels Safe At This Time Assistive Devices: Glasses Physical Exam Physical Exam: Patient is alert and oriented Heart regular rhythm Lungs clear Results & Data Results & Data Vital Signs (Past 12 Hours) Vital Signs Temp Pulse Resp BP Pulse Ox O2 Del Method 01/01/25 06:43 37.0 C 87 22 139/71 99 Room Air
[2025-01-01] MEDS: ceFAZolin 2000MG 2,000 MG/15 ML SYR IV SCH ×2 (07:55→15:28)
[2025-01-01] MEDS ORDERED: ceFAZolin 330 MG/ML 1 GM VIAL ONE (08:13)
[2025-01-01] MEDS ORDERED: KETAMINE HCL 10MG/ML SYR ONE (08:27)
[2025-01-01] MEDS: BUPIVACAINE/EPINEPHRINE 0.25% 1:200,000 30 ML VIAL ONE (08:44)
[2025-01-01] MEDS: ceFAZolin 330 MG/ML 1 GM VIAL ONE (08:44)
[2025-01-01] MEDS ORDERED: KETOROLAC 30 MG/ML VIAL ONE (08:55)
[2025-01-01] MEDS ORDERED: SUGAMMADEX SODIUM 200 MG/2 ML VIAL IV ONE ×2 (09:31→09:49)
[2025-01-01] MEDS: FLOSEAL HEMOSTATIC MATRIX 10ML TOP ONE (09:40)
--- NOTE | 2025-01-01 09:42 | Operative Report ---
Post Operative Report Pre & Post Diagnosis Operation Date: 01/01/25 07:45 Pre-Op Diagnosis: #1 lumbar spondylosis with radiculopathy. #2 lumbar spinal stenosis. #3 morbid obesity Post-Op Diagnosis: Same I identified the patient and participated in the time-out.: Yes Procedure Operation Date: 01/01/25 07:45 Actual Procedures #1 removal of posterior instrumentation L2-L3. #2 exploration of fusion L2-L3. #3 decompression with bilateral medial facetectomies and foraminotomies L1-L2. #4 posterior spinal fusion L1-L2. #5 placement posterior instrumentation L1-L3 using Eason. #6 interbody fusion L1-L2. #7 placement of Spira 10 x 26 mm at L1-L2. #8 placement locally harvested morselized autograft and posterior gutters. #9 placement infuse collagen sponge combined with Koros in the posterior lateral gutters and os design and interbody space. #10 placement of versa wrap of the exposed dura. Surgeon Kelton Quezada, DO Management Services Technician Ashley Emmanuel Estimated Blood Loss 150 Findings See Below The patient is 5 foot 1 weighing over 119 kg with a BMI in excess of 49. Patient's body habitus did contribute to significant technical difficulty with positioning exposure and the procedure itself adding at least 50% increased operative time. Specimens None Indications This is a 64-year-old female who presents publish diagnosis of failed course of nonoperative care is here for surgical invention. Description of Procedure Patient was met with identified informed consent obtained. Patient was then taken to the operative suite underwent consent patient placed in a prone position on the Saman table on top of the Steffen frame. All bony prominences well-padded eyes inspected to ensure no external precipice upon them. This point the lumbar spine was prepped and draped in normal sterile fashion. Sharp dissection with the assistance of Bovie cautery from down to and exposing the lamina transverse processes of L1 and instrumentation at L2-L3 bilaterally. And then proceeded move the hardware bilaterally. Explored the fusion mass noting it to be mature and intact. Then formed a laminectomy of L1 with bilateral medial facetectomies and foraminotomies addressing severe neural compression. Pedicle screws then placed in L1-L2-L3 bilaterally with assistance of fluoroscopy process idania placed. By way of a trans foraminal approach on the right a complete discectomy at the L1-L2 was performed endplates corrected to subcortical bleeding bone and a 10 x 26 mm Spira cage filled with os design bone graft tapped in position. The rods were then compressed locked in a final position bilaterally. The transverse processes of L1-L2 burred to subcortical bleeding bone. Infuse collagen sponge combined with Koros and local autograft placed in the posterior gutters. 15 round KOREY inserted. The incision was then closed with 1 Vicryl and fascia 2-0 Vicryl subcutaneously and 4 Monocryl for final skin closure. Steri-Strips and sterile dressing placed. Patient waken taken the PACU stable condition. Please note spinal cord monitoring visualized at the procedure no changes noted. Lastly Ashley Emmanuel was present at the entire surgeon while the patient positioning complex portion of the surgery and final skin closure. I attest to the content of the Intraoperative Record and any orders documented therein. Any exceptions are noted below.
--- NOTE | 2025-01-01 09:43 | Fluoroscopy Report ---
FL lumbar spine 2-3V CLINICAL HISTORY: L1-L2 DECOMP/FUSION, EXPLORE L2-L3 W/ HARDWARE REMOVAL COMPARISON STUDY: Lumbar spine MRI October 28, 2024. FLUOROSCOPY TIME: 16 seconds. grant Galeas: 10.70 mGy FLUOROSCOPIC IMAGES: 2 FINDINGS: Fluoroscopy was provided during revision lumbar surgery and L1-L2 decompression and fusion with discectomy and interbody spacer placement. IMPRESSION: Fluoroscopy provided during revision lumbar surgery with L1-L2 decompression and fusion. ACT 112: Negative or not required by law. Electronically signed by: Momo Dumont M.D. 01/01/2025 9:42 AM
[2025-01-01] MEDS ORDERED: ePHEDrine sulfate 50 MG/ML AMP IV PRN (09:59)
[2025-01-01] MEDS ORDERED: PROMETHAZINE HCL 6.25 MG in SODIUM CHLORIDE 0.9% 50 ML IV PRN (09:59)
[2025-01-01] MEDS ORDERED: ATROPINE SULFATE 0.1 MG/ML 10ML SYR IV PRN (09:59)
[2025-01-01] MEDS ORDERED: ONDANSETRON INJ 2 MG/ML 2 ML VIAL IV PRN (09:59)
[2025-01-01] MEDS: fentaNYL citrate PF 100 MCG/2 ML VIAL IV PRN (10:05)
[2025-01-01] MEDS: HYDROmorphone INJ 2 MG/ML SYR/VIAL IV PRN (10:15)
[2025-01-01] MEDS ORDERED: PROMETHAZINE 12.5 MG/50.5 ML BAG IV PRN (11:44)
[2025-01-01] MEDS ORDERED: LORATADINE 10 MG TAB PO PRN (11:44)
[2025-01-01] MEDS ORDERED: DO NOT ADMINISTER PNEUMOCOCCAL VACCINE PRN (11:44)
[2025-01-01] MEDS ORDERED: bisacodyL 10 MG SUPP PR PRN (11:44)
[2025-01-01] MEDS ORDERED: SOD PHOSPHATE/SOD BIPHOSPHATE ENEMA 132 ML BTL PR PRN (11:44)
[2025-01-01] MEDS ORDERED: NALOXONE HCL 0.4 MG/1 ML VIAL/CARP IV PRN (11:44)
[2025-01-01] MEDS ORDERED: ALUMINUM/MAGNESIUM SUSP 30 ML UDC PO PRN (11:44)
[2025-01-01] MEDS ORDERED: ONDANSETRON 4 MG OD TAB PO PRN (11:44)
[2025-01-01] MEDS ORDERED: DO NOT ADMINISTER FLU VACCINE PRN (11:44)
[2025-01-01] MEDS ORDERED: MAGNESIUM HYDROXIDE SUSP 30 ML UDC PO PRN (11:44)
[2025-01-01] MEDS ORDERED: LORazepam 2 MG/1 ML VIAL IV PRN (11:44)
[2025-01-01] MEDS ORDERED: diphenhydrAMINE Capsule 25 MG CAP PO PRN (11:44)
[2025-01-01] MEDS ORDERED: METOCLOPRAMIDE HCL INJ 5 MG/ML 2 ML VIAL IV PRN (11:44)
[2025-01-01] MEDS ORDERED: NON-FORMULARY MEDICATION (Magnesium Tablet) SCH (11:44)
[2025-01-01] MEDS ORDERED: ACETAMINOPHEN 500 MG TAB PO PRN (11:44)
[2025-01-01] MEDS ORDERED: FAMOTIDINE 20 MG TAB PO PRN (11:44)
[2025-01-01] MEDS ORDERED: hydrOXYzine HCl 25 MG TAB PO PRN (11:44)
[2025-01-01] MEDS: fentaNYL citrate PF 100 MCG/2 ML VIAL ONE (11:47)
[2025-01-01] MEDS: HYDROmorphone INJ 2 MG/ML SYR/VIAL ONE (11:48)
--- NOTE | 2025-01-01 12:07 | Anesthesiology Progress Note ---
Date of Service January 01, 2025 Anesthesia Post Procedure Vital Signs Vital Signs: Temp Pulse Pulse Resp BP Pulse Ox O2 Del Method 01/01/25 11:40 36.5 C 86 18 114/72 94 Room Air 01/01/25 11:15 81 12 124/81 96 Oxymask 01/01/25 11:00 82 12 125/66 98 Oxymask 01/01/25 10:50 36.5 C 85 13 106/58 L 97 Oxymask 01/01/25 10:40 86 16 133/63 98 Oxymask 01/01/25 10:30 81 12 116/71 98 Oxymask 01/01/25 10:20 85 12 109/67 96 Oxymask 01/01/25 10:10 86 20 130/68 97 Oxymask 01/01/25 09:59 36.0 C L 85 12 115/9 L 96 Oxymask 01/01/25 06:43 37.0 C 87 22 139/71 99 Room Air O2 Flow Rate 01/01/25 11:40 01/01/25 11:15 3 01/01/25 11:00 3 01/01/25 10:50 3 01/01/25 10:40 3 01/01/25 10:30 3 01/01/25 10:20 3 01/01/25 10:10 6 01/01/25 09:59 6 01/01/25 06:43 Pain Intensity Lower Back: Pain Intensity: 10 Transfer of Care Handoff Completed per policy Notes Mental Status: alert / awake / arousable and participated in evaluation Patient Amnestic to Procedure: Yes Nausea / Vomiting: adequately controlled Pain: adequately controlled Airway Patency, RR, SpO2: stable & adequate BP & HR: stable & adequate Hydration State: stable & adequate Anesthetic Complications: no major complications apparent
[2025-01-01] MEDS: HYDROmorphone INJ 1 MG/ML SYRINGE IV PRN (12:14)
--- NOTE | 2025-01-01 13:39 | Hospitalist Consultation ---
Date of Consultation January 01, 2025 Assessment & Plan (1) Hypothyroidism: (2) Dyslipidemia: (3) Spinal stenosis of lumbar region with radiculopathy: Plan 64-year-old female PMHx left hip replacement,Anemia, HLD, prediabetes anxiety, positive VIOLET, and chronic lumbar back pain with radiculopathy who presents to the hospital for elective back surgery with Dr. Quezada. #hypothyroidcontinue Synthroid #CAD - continue ASA #chronic back pain / S/p back surgery S/P L2-L3 hardware removal, L1-L2,L2-L3 decompression and fusion with Dr. Quezada 01/01 DVT proh/pain control/dispo per primary team EBL 150. Trend CBC in AM Thank you for allowing us to participate in the care of this patient, please reach out with any questions or concerns. We will continue to follow for AM labs Supervising Physician Co-Signing Physician Notes Patient seen and examined, chart reviewed, case discussed with Lilly Gaffney PA-C] and I agree with the assessment and plan as above except as otherwise noted Labs and images reviewed Seen at the bedside. Feels okay, does have up to 8/10 pain in her back which improves with her pain medications and is tolerable. Would like the string to her overhead light tied to her L so she can reach it otherwise no concerns Agree with above History of Present Illness Reason for Consultation: medical management Requesting Physician: Dr. Quezada Attending Physician: Kelton Quezada, DO History of Present Illness 64-year-old female PMHx left hip replacement,Anemia, HLD, prediabetes anxiety, positive VIOLET, and chronic lumbar back pain with radiculopathy who presents to the hospital for elective back surgery with Dr. Quezada. Patient seen post operatively. Reports pain at this time, but knows she needs to stay ahead of this as she is had issues in the past with pain control post operatively. has not passed gas no nausea Allergies Allergy/AdvReac Type Severity Reaction Status Date / Time morphine Allergy Severe Dyspnea Verified 01/01/25 06:22 celecoxib [From Celebrex] Allergy Intermediate Swelling Verified 01/01/25 06:22 Sulfa (Sulfonamide Allergy Intermediate Rash Verified 01/01/25 06:22 Antibiotics) levofloxacin Allergy Mild Rash (with Verified 01/01/25 06:22 IV medication) Quinolones Allergy Mild Rash Verified 01/01/25 06:22 wheat Allergy Mild GI Verified 01/01/25 06:22 sensitivity diphenhydramine AdvReac Intermediate "KEEPS ME Verified 01/01/25 06:22 AWAKE INSTEAD OF MAKING ME SLEEPY" gabapentin AdvReac Intermediate Blurry Verified 01/01/25 06:22 Vision hydroxyzine AdvReac Intermediate HYPERACTIVE Verified 01/01/25 06:22 prednisone AdvReac Intermediate PSYCHOTIC Verified 01/01/25 06:22 COMPLICATIONS Home Medications Medication Instructions Recorded Confirmed Type vitamin B complex 1 cap PO QAM 07/17/18 01/01/25 History cholecalciferol (vitamin D3) 25 1,000 units PO QAM 06/01/20 01/01/25 History mcg (1,000 unit) capsule (Vitamin D3) acetaminophen 500 mg tablet 1,000 mg PO Q8H PRN Pain 04/24/23 01/01/25 History krill 1,000 mg-omega-3 170 mg-dha 1 cap PO QAM 10/06/23 01/01/25 History 50 mg-epa 80 uh-whuzit-sxmxr capsule (krill oil) levothyroxine 50 mcg tablet 50 mcg PO UD 12/25/23 01/01/25 History loratadine 10 mg tablet (Claritin) 10 mg PO DAILY PRN Congestion 05/03/24 01/01/25 History naproxen 500 mg tablet 500 mg PO BID PRN pain #20 tabs 11/05/24 01/01/25 Rx aspirin 81 mg tablet,delayed 81 mg PO QAM 11/28/24 01/01/25 History release clonazepam 0.5 mg tablet 0.5 mg PO UD PRN Anxiety 11/28/24 01/01/25 History ferrous sulfate 325 mg (65 mg 325 mg PO UD 11/28/24 01/01/25 History iron) tablet (iron) zinc 1 tab PO DAILY 11/28/24 01/01/25 History magnesium See Rx Instructions .Route .COMPLEX 12/10/24 01/01/25 History oxycodone 5 mg tablet 5 mg PO Q6H PRN pain #30 tabs 01/01/25 Rx tramadol 50 mg tablet 50 mg PO Q6H PRN pain, moderate 01/01/25 Rx #30 tabs Patient History Medical History (Updated 01/01/25 @ 07:43 by Kelton Quezada, ) TIA (transient ischemic attack) Possible 06/05/24 Patient states this was rule out; no hx of CVA; currently on ASA daily Hx of tinnitus Occasional Hx of sinus tachycardia "happens about 1 week after surgeries" Postlaminectomy syndrome Hx of migraines "seasonal/weather related" History of fatty infiltration of liver Dyslipidemia Prediabetes Per PCP records Hypothyroidism History of COVID-19 06/2022- fever, cough, resolved 06/2024- resolved Morbid obesity with BMI of 50.0-59.9, adult Urinary incontinence Osteoarthritis Chronic back pain RLE RADICULOPATHY; LE NEUROPATHY Hx of sarcoidosis Located to lung per patient No recent issues, single flare 2012 Anxiety Surgical History [place] [facility] [place] [facility] [place] of total left knee replacement Hx of arthroscopy of left knee incorrect, had full replacement Hx of spinal surgery 2012, lumbar L3-4, L4-5, fusions 2017, lumbar L2-3, fusion History of right knee joint replacement 2019 H/O bilateral salpingo-oophorectomy History of carpal tunnel release rt/lt History of bilateral tubal ligation done w/last [place] teeth removed History of myringotomy History of esophagogastroduodenoscopy (EGD) History of breast biopsy rt breast, benign History of section X4, last one had bilateral tubal ligation History of colonoscopy History of appendectomy History of bronchoscopy TO DX SARCODOSIS 2012 S/P lumbar spinal fusion duplicate S/P cervical spinal fusion ~2006, C4-C6; ROM "is fine, no limitations" S/P partial hysterectomy Family History Brother Diabetes Colorectal cancer Mother Diabetes Stomach cancer Sarcoidosis Lymphoma Father Coronary heart disease Other Cancer Heart disease Hypertension No family history of adverse response to anesthesia No family history of bleeding disorder Social History Smoking Status: Never smoker Second Hand Exposure: No; Do You Dip or Chew Tobacco: No; Tobacco Cessation Education Requested by Patient: No Hx Alcohol Use: Yes Hx Substance Use: No Preferred Language: Hungarian Communication Ability: Effective Visual Impairment: No Limitations Mba Intern Required: No Beliefs That Will Affect Care: None marital status: Current Living Situation: Spouse Current Living Situation Comment: Also son and niece intermittently. Other Information That Helps Us Care for You: No Feels Safe at Home: Yes Safety Concerns: Feels Safe At This Time Assistive Devices: Glasses Review of Systems Review of Systems: All systems reviewed & are unremarkable except as noted in Subjective Physical Exam Physical Exam: General: NAD, VS as above Resp: normal respiratory effort, lungs clear to auscultation CV: RRR, no murmur, Abd: normal bowel sounds, non tender, soft Extremities: Moves all extremities, wiggles toes bilaterally Neuro: A&O x3, Skin: intact, no lesions noted Results & Data Results & Data Vital Signs (Past 12 Hours) Vital Signs Temp Pulse Pulse Resp BP Pulse Ox O2 Del Method 01/01/25 12:40 82 16 103/73 92 Room Air 01/01/25 11:40 97.7 F 86 18 114/72 94 Room Air 01/01/25 11:15 81 12 124/81 96 Oxymask 01/01/25 11:00 82 12 125/66 98 Oxymask 01/01/25 10:50 97.7 F 85 13 106/58 L 97 Oxymask 01/01/25 10:40 86 16 133/63 98 Oxymask 01/01/25 10:30 81 12 116/71 98 Oxymask 01/01/25 10:20 85 12 109/67 96 Oxymask 01/01/25 10:10 86 20 130/68 97 Oxymask 01/01/25 09:59 96.8 F L 85 12 115/9 L 96 Oxymask 01/01/25 06:43 98.6 F 87 22 139/71 99 Room Air O2 Flow Rate 01/01/25 12:40 01/01/25 11:40 01/01/25 11:15 3 01/01/25 11:00 3 01/01/25 10:50 3 01/01/25 10:40 3 01/01/25 10:30 3 01/01/25 10:20 3 01/01/25 10:10 6 01/01/25 09:59 6 01/01/25 06:43 PG Care Time/CCT Total # of Minutes Spent Total Time Spent with Patient: Total time spent is greater than 50% in coordination of care (as documented) at patient's floor/unit and/or counseling patient: Coding Level of Care Code 84456 IN/OBS CONSULT LVL 3,45M Diagnoses Hypothyroidism E03.9 Dyslipidemia E78.5 Spinal stenosis of lumbar region with radiculopathy M48.061; M54.16
[2025-01-01] MEDS: oxyCODONE HCL IR 5 MG TAB (IMMEDIATE RELEASE) PO PRN (14:13)
[2025-01-01] MEDS: FERROUS SULFATE 325 MG TAB PO SCH (14:22)
[2025-01-01] MEDS: ONDANSETRON INJ 2 MG/ML 2 ML VIAL IV PRN (18:44)
[2025-01-01] MEDS: DOCUSATE SODIUM 100 MG CAP PO SCH (21:16)
[2025-01-01] MEDS: DOCUSATE SODIUM/SENNA 50/8.6MG TAB PO SCH (21:16)
[2025-01-01] MEDS: HYDROmorphone INJ 0.5 MG/0.5 ML SYR IV PRN (22:04)
[2025-01-02] MEDS: LACTATED RINGER'S 500 ML IV ONE ×3 (00:56→03:03)
[2025-01-02] MEDS: ACETAMINOPHEN 1,000 MG/100 ML VIAL IV PRN (01:35)
[2025-01-02] MEDS: ACETAMINOPHEN 500 MG TAB PO STA (05:53)
[2025-01-02] MEDS: POLYETHYLENE (MIRALAX) 17 GM PACK PO SCH (05:53)
[2025-01-02] MEDS: LEVOTHYROXINE SODIUM 50 MCG TABLET PO SCH (05:53)
[2025-01-02] MEDS: GABAPENTIN 300 MG CAP PO STA (06:05)
[2025-01-02] MEDS: CYCLOBENZAPRINE HCL 10 MG TAB PO STA (06:14)
[2025-01-02 08:20] LABS: Basophils # (auto) 0.02 K/uL (0.00-0.20); Basophils % (auto) 0.3 %; Eosinophils # (auto) 0.03 K/uL (0.00-0.50); Eosinophils % (auto) 0.4 %; Hematocrit (blood only) 31.3 % (37.0-47.0); Hemoglobin 10.5 g/dl (12.0-16.0); Immature Granulocytes # (auto) 0.02 K/uL (0.01-0.20); Immature Granulocytes % (auto) 0.3 %; Mean Corpuscular Hemoglobin 28.3 pg (25.0-34.0); Mean Corpuscular Hgb Conc 33.5 g/dL (32.0-36.0); Mean Corpuscular Volume 84.4 fL (80.0-100.0); Mean Platelet Volume 9.6 fL (9.4-12.4); Monocytes # (auto) 0.56 K/uL (0.11-0.59); Monocytes % (auto) 7.5 %; Neutrophils # (auto) 5.95 K/uL (1.40-6.50); Neutrophils % (auto) 79.5 %; Platelet Count 216 K/uL (130-400); RDW Coefficient of Variation 14.2 % (11.5-14.5); RDW Standard Deviation 43.8 fL (36.4-46.3); Red Blood Count 3.71 M/uL (4.20-5.40); White Blood Count 7.48 K/ul (4.8-10.8)
[2025-01-02 08:39] LABS: BUN Creatinine Ratio 21.3 (10-20); Calcium 9.1 mg/dl (8.6-10.3); Creatinine Clr Calc Pharmacy 113.2 ml/min; Potassium 4.3 mmol/L (3.5-5.1)
[2025-01-02] MEDS ORDERED: NON-FORMULARY MEDICATION (Zinc Tablet,Chewable) PO SCH (09:00)
[2025-01-02] MEDS: clonazePAM 0.5 MG TAB PO PRN (09:36)
[2025-01-02] MEDS: traMADol HCL 50 MG TABLET PO PRN (09:36)
[2025-01-02] MEDS: CHOLECALCIFEROL 25 MCG (1000 UNITS) TAB PO SCH (09:37)
[2025-01-02] MEDS: ASPIRIN 81 MG ECTAB PO SCH (09:37)
[2025-01-02] MEDS: dexAMETHasone 6 MG in SYRINGE 0 ML IV SCH (09:37)
[2025-01-02] MEDS: VITAMIN B COMPLEX TAB PO SCH (09:37)
--- NOTE | 2025-01-02 10:42 | Orthopedic Progress Note ---
Date of Service January 02, 2025 Assessment & Plan (1) Spinal stenosis of lumbar region with radiculopathy: Plan: Beryl is postoperative day 1 status post lumbar decompression and fusion. Will continue to work on pain control. DVT prophylaxis is in the form of teds and SCDs. Maintain KOREY drain. Continue with aggressive bowel regimen. She is starting physical therapy today. Admission and Anticipated Discharge Date Admission Date: January 01, 2025 Subjective Beryl is postoperative day 1 status post lumbar decompression and fusion. She has complaints of lower back pain. No radicular leg pain. H&H is morning are 10.5 and 31.3 respectively. KOREY drain output last shift is 60 cc. Review of Systems Review of Systems: All systems reviewed & are unremarkable except as noted in HPI & below Physical Exam 2 Physical Exam: She sitting in her chair. Her is in the room. She is alert and oriented x 3 she is in no acute distress dressings clean dry and intact with functioning KOREY drain ISAURO hose intact strength unchanged bilateral lower extremities Results & Data Vital Signs (Past 12 Hours) Vital Signs Temp Pulse Resp BP BP Pulse Ox O2 Del Method 01/02/25 08:14 37.1 C 91 H 16 108/62 97 Room Air 01/02/25 07:49 112/74 01/02/25 05:44 93/55 L 01/02/25 03:44 99 H 93/58 L 01/02/25 02:39 37 C 101 H 18 95/57 L 94 Room Air 01/02/25 01:34 103 H 93/54 L 01/01/25 23:07 37.0 C 107 H 17 104/58 L 82/48 L 95 Room Air
--- NOTE | 2025-01-02 11:38 | Hospitalist Progress Note ---
Date of Service January 02, 2025 Assessment & Plan (1) Hypothyroidism: (2) Dyslipidemia: (3) Spinal stenosis of lumbar region with radiculopathy: Plan 64-year-old female PMHx left hip replacement,Anemia, HLD, prediabetes anxiety, positive VIOLET, and chronic lumbar back pain with radiculopathy who presents to the hospital for elective back surgery with Dr. Quezada. #Post operative hypotension Hypotensive overnight - likely combination of anesthesia and further pain meds. Resolved with IVFs. Pt not on BP meds at baseline. Avoid IV pain meds when able. #hypothyroidcontinue Synthroid #CAD - continue ASA #chronic back pain / S/p back surgery S/P L2-L3 hardware removal, L1-L2,L2-L3 decompression and fusion with Dr. Quezada 01/01 DVT proh/pain control/dispo per primary team EBL 150. hgb 10.5 post op, was 12.5 preop - acute blood loss anemia vs dilutional Thank you for allowing us to participate in the care of this patient, medicine will sign off. Please reach out with any questions or concerns. Admission and Anticipated Discharge Date Admission Date: January 01, 2025 Subjective Patient seen lying in bed, present at bedside. Reports that she has worsening pain last night because she wasnt able to get her pain meds because of her blood pressure. Doing better with pain control this morning was able to walk some - limited by pain, not lightheadedness or dizziness passing gas Review of Systems Review of Systems: All systems reviewed & are unremarkable except as noted in Subjective Physical Exam Physical Exam: General: NAD, VS as above Resp: normal respiratory effort, lungs clear to auscultation CV: RRR, no murmur, Abd: normal bowel sounds, non tender, soft Back: KOREY drain in place Extremities: Moves all extremities, wiggles toes bilaterally Neuro: A&O x3, Results & Data Results & Data Vital Signs (Past 12 Hours) Vital Signs Temp Pulse Resp BP BP Pulse Ox O2 Del Method 01/02/25 11:21 98.1 F 80 20 105/66 95 Room Air 01/02/25 08:14 98.8 F 91 H 16 108/62 97 Room Air 01/02/25 07:49 112/74 01/02/25 05:44 93/55 L 01/02/25 03:44 99 H 93/58 L 01/02/25 02:39 98.6 F 101 H 18 95/57 L 94 Room Air 01/02/25 01:34 103 H 93/54 L Laboratory Results CBC and chemistry reviewed PG Care Time/CCT Total # of Minutes Spent Total Time Spent with Patient: Total time spent is greater than 50% in coordination of care (as documented) at patient's floor/unit and/or counseling patient: Coding Level of Care Code 81736 SUB INP/OBS CARE 2/35MIN Diagnoses Hypothyroidism E03.9 Dyslipidemia E78.5 Spinal stenosis of lumbar region with radiculopathy M48.061; M54.16
[2025-01-02] MEDS ORDERED: ACETAMINOPHEN 500 MG TAB PO PRN (22:51)
[2025-01-03] MEDS: ACETAMINOPHEN 500 MG TAB ONE (00:01)
[2025-01-03] MEDS: LEVOTHYROXINE SODIUM 75 MCG TABLET PO SCH (06:03)
--- NOTE | 2025-01-03 10:07 | Orthopedic Progress Note ---
Date of Service January 03, 2025 Assessment & Plan (1) Spinal stenosis of lumbar region with radiculopathy: Plan: This time we will continue physical therapy monitor KOREY output anticipate discharge to rehab tomorrow. Admission and Anticipated Discharge Date Admission Date: January 01, 2025 Subjective Patient's pain is controlled. She is ambulating well. Physical Exam Physical Exam: Patient is constricted testing. Appears comfortable. Results & Data Vital Signs (Past 12 Hours) Vital Signs Temp Pulse Resp BP Pulse Ox O2 Del Method 01/03/25 07:35 36.7 C 80 16 101/60 97 Room Air Queries Orthopedic Spine Obesity: Yes
--- NOTE | 2025-01-04 10:44 | Discharge Summary ---
Date of Service January 04, 2025 Admission HPI Per Admitting Provider This is a 64-year-old female who presents chronic persistent back and leg pain after failing course of nonoperative care is here for surgical intervention. Principal Diagnosis Cervical spondylosis with radiculopathy Discharge Data Allergies Allergy/AdvReac Type Severity Reaction Status Date / Time morphine Allergy Severe Dyspnea Verified 01/01/25 06:22 celecoxib [From Celebrex] Allergy Intermediate Swelling Verified 01/01/25 06:22 Sulfa (Sulfonamide Allergy Intermediate Rash Verified 01/01/25 06:22 Antibiotics) levofloxacin Allergy Mild Rash (with Verified 01/01/25 06:22 IV medication) Quinolones Allergy Mild Rash Verified 01/01/25 06:22 wheat Allergy Mild GI Verified 01/01/25 06:22 sensitivity diphenhydramine AdvReac Intermediate "KEEPS ME Verified 01/01/25 06:22 AWAKE INSTEAD OF MAKING ME SLEEPY" gabapentin AdvReac Intermediate Blurry Verified 01/01/25 06:22 Vision hydroxyzine AdvReac Intermediate HYPERACTIVE Verified 01/01/25 06:22 prednisone AdvReac Intermediate PSYCHOTIC Verified 01/01/25 06:22 COMPLICATIONS Consultations 01/01/25 11:44 Consult Hospitalist Routine Procedures Performed Operation Date: 01/01/25 07:45 Actual Procedures p L1-L2 Decompression and Fusion, Exploration L2-L3 Fusion, Spinal Cord Monitoring(Not Applicable) - Kelton Quezada DO s L2-L3 Hardware Removal,(Not Applicable) - Kelton Quezada DO Ordered Studies 01/01/25 [place] lumbar spine 2-3V Routine Hospital Course (1) Spinal stenosis of lumbar region with radiculopathy: Patient went lumbar decompression fusion trial as well as taken orthopedic for present relief. Post release he progressed appropriately. Pain controlled. Leg symptoms improved. KOREY drain decreasing. Good strength testing. Simply discharged to rehab. Discharge orders instructions from the chart for further review. Total Time Total Time Spent Total Time Spent (In Minutes): 20 minutes Discharge Plan Discharge Items Patient Disposition: Transfer Inpatient Rehab Fac Reason For Visit: Degenerative Lumbar Spinal Stenosis, Other Spondyl Discharge Diagnosis: Lumbar spondylosis with radiculopathy c disease Activity: As commented below Non-emergency contact: Primary Care Provider Call non-emergency contact if: you have any medication questions Follow-up/Referrals: Goyo Yanes MD [Primary Care Provider] - Diet: Regular Addtl Attending Provider Instructions: ACTIVITY RECOMMENDATIONS: SELF CARE INSTRUCTIONS AFTER THORACIC/LUMBAR FUSIONS 1. You may walk to your tolerance. It is good exercise for your legs and back. Expect some back and intermittent leg aches and pains. 2. You may perform "counter-top" level activities (make a sandwich, kailtynn with a project, etc.). 3. No bending or lifting of more than 10 pounds or back twisting of any nature (roll like a log when turning in bed). 4. You may ride in a car for 20-30 minutes at a time. No driving until after your first visit with your doctor. 5. Frequent changes of position and restricting sitting to 30 minutes at a time will help limit the amount of back spasms and stiffness you may experience. 6. You may discontinue the use of ambulatory aids (cane, crutches, etc.) once your strength and confidence allow. 7. You may forming roll operator heavy duty the shower and let water strike your incision when you arrive home at least once daily. Do not take a tub bath, sit in a hot tub or go into a swimming pool until after your first recheck in the office. 8. You may resume previous diet. SPECIAL CARE INSTRUCTIONS: VERY IMPORTANT TO READ AND REVIEW A. Your surgical incision has been closed with a cosmetic suture under the skin that will dissolve in about 6 weeks. In 14 days, you can use a pair of clean scissors and cut the suture that is left outside of the skin at the ends of your incision. 1. The small skin tapes can be removed 7 days after surgery if they have not fallen off by that point. 2. You may keep the wound open to air as much as possible to promote healing after post-op day number 5 unless told otherwise by your doctor. 3. If you think the wound looks like it is becoming infected (redness or worsening drainage) and/or you are experiencing fever, chill or worsening back pain and muscle spasms, contact the office so that we may evaluate you as soon as possible. B. Complications are uncommon, but please contact us if you have any signs or symptoms of: 1. wound infection (fever higher than 102.5 degrees F, redness, separation of wound, drainage, or increasing pain from the incision) 2. blood clots in legs (pain, swelling, redness and warmth in legs) 3. urinary tract infection (fever higher than 102.5 degrees F, burning upon urination or increased frequency of urination) 4. nerve problems (inability to walk on your toes or heels, numbness, loss of bowel or bladder control) 5. any other symptoms that concern you C. Please call the office at if you have any concerns or questions about your operation or recovery. D. No smoking! Smoking drastically decreases the chance of a solid fusion. E. Do not take any anti-inflammatory medications (Indocin, Advil, Motrin, Aspirin, Naprosyn, etc.) as these may inhibit the chance of a solid fusion. Tylenol is okay to take for pain. MANAGING PAIN AFTER SPINAL SURGERY 1. Narcotic medication is intended for short-term use and will be provided for surgical pain. Surgical pain usually lasts for a period of 4-6 weeks. Narcotic medication includes Percocet, Vicodin, Darvocet, Tylenol #3 or Lortab. 2. Longer-term pain is more appropriately treated with non-narcotic medication such as Tylenol ES. 3. Muscle spasm is not appropriately treated with narcotics. Muscle relaxers such as Soma, Flexeril or Skelaxin can be used along with Tylenol ES. 4. Remember that we all live with some "aches and pains". This is not unusual or uncommon after an injury or as we get older. a. Back pain is expected and may include muscle spasms for 4 to 6 weeks after surgery. The pain should gradually improve. If the pain worsens for no apparent reason, please contact the office. b. Intermittent leg pain may also be experienced and should not be concerned about unless it worsens for no apparent reason. If so, please contact the office. 5. We will provide appropriate medication within the normal guidelines of their prescribed use. We will also be very cautious and aware of potential abuse and extended duration of patients' medication needs. a. Pain medications are for your comfort and to assist with sleep and rest so that the tissue can heal. They are not provided in order to return to normal activity and should not be used through the day. To do so or worsening pain at night can result from ongoing tissue damage and development of tolerance to the prescribed medicine. 6. Please allow 2-3 days to process refills. Prescriptions will not be mailed but must be picked up at the office. FOLLOW UP VISIT: Keep your scheduled follow-up appointment. Any questions, please call the office at . Pending Studies at Discharge: No Stand-Alone Forms: [employer] ASA, Smoking Cessation Skilled Items Patient informed of condition?: Yes DNR: No Discharge Level of Care: Acute rehab Communicable Disease: No Discharge Prognosis: Improving Lines: None Urinary Catheter: No Medications and DC Order Prescriptions: New tramadol 50 mg tablet 50 mg PO Q6H PRN (Reason: pain, moderate) Qty: 30 0RF oxycodone 5 mg tablet 5 mg PO Q6H PRN (Reason: pain) Qty: 30 0RF Continued cholecalciferol (vitamin D3) [Vitamin D3] 25 mcg (1,000 unit) capsule 1,000 units PO QAM vitamin B complex Capsule 1 cap PO QAM acetaminophen 500 mg Tablet 1,000 mg PO Q8H PRN (Reason: Pain) krill oil 1,929-117-90-80 mg Capsule 1 cap PO QAM levothyroxine 50 mcg tablet 50 mcg PO UD Rx Instructions: TAKE ONE TABLET BY MOUTH 4 DAYS A WEEK AND ONE AND ONE-HALF TABLETS 3 DAYS A WEEK (mon/wed/fri) loratadine [Claritin] 10 mg Tablet 10 mg PO DAILY PRN (Reason: Congestion) clonazepam 0.5 mg tablet 0.5 mg PO UD PRN (Reason: Anxiety) aspirin 81 mg Tablet,Delayed Release (Dr/Ec) 81 mg PO QAM ferrous sulfate [iron] 325 mg (65 mg iron) Tablet 325 mg PO UD Rx Instructions: mon/wed/fri once daily zinc Tablet,Chewable 1 tab PO DAILY magnesium Tablet See Rx Instructions .ROUTE .COMPLEX Rx Instructions: 1 tablet every morning Discontinued naproxen 500 mg tablet 500 mg PO BID PRN (Reason: pain) Qty: 20 0RF Discharge Orders: Discharge Order (Routine); Ordered 01/04/25 Ordered By: Kelton Quezada Admission Data Admit Date/Time: 01/01/25 09:46 Attending Provider: Kelton Quezada Admit Provider: Kelton Quezada Primary Care Provider: Goyo Yanes Other Providers: [facility]
--- NOTE | 2025-01-05 09:13 | Orthopedic Progress Note ---
Date of Service January 05, 2025 Assessment & Plan (1) Spinal stenosis of lumbar region with radiculopathy: Plan: At this time she will continue physical therapy while in the hospital. She will be discharged to rehab today if the bed is available. Admission and Anticipated Discharge Date Admission Date: January 01, 2025 Subjective Back pain is controlled leg pain improved. Physical Exam Physical Exam: Patient is in the chair at the bedside. She is comfortable. Distracted testing. Results & Data Vital Signs (Past 12 Hours) Vital Signs Temp Pulse Resp BP Pulse Ox O2 Del Method 01/05/25 07:54 36.9 C 74 16 134/79 97 Room Air Queries Orthopedic Spine Obesity: Yes
[2025-01-05] MEDS: ENOXAPARIN INJ 40 MG/0.4 ML SYR SQ ONE (21:54)
[2025-01-05 22:58] LABS: Basophils # (auto) 0.03 K/uL (0.00-0.20); Basophils % (auto) 0.4 %; Eosinophils # (auto) 0.41 K/uL (0.00-0.50); Eosinophils % (auto) 4.9 %; Hematocrit (blood only) 32.4 % (37.0-47.0); Hemoglobin 10.8 g/dl (12.0-16.0); Immature Granulocytes # (auto) 0.06 K/uL (0.01-0.20); Immature Granulocytes % (auto) 0.7 %; Lymphocytes # (auto) 2.76 K/uL (1.20-3.40); Lymphocytes % (auto) 33.2 %; Mean Corpuscular Hemoglobin 28.8 pg (25.0-34.0); Mean Corpuscular Hgb Conc 33.3 g/dL (32.0-36.0); Mean Corpuscular Volume 86.4 fL (80.0-100.0); Mean Platelet Volume 9.8 fL (9.4-12.4); Monocytes # (auto) 0.63 K/uL (0.11-0.59); Monocytes % (auto) 7.6 %; Neutrophils # (auto) 4.43 K/uL (1.40-6.50); Neutrophils % (auto) 53.2 %; Nucleated RBC # (auto) 0.02 K/uL (0.00-0.12); Nucleated RBC % (auto) 0.2 %; Platelet Count 231 K/uL (130-400); RDW Coefficient of Variation 14.3 % (11.5-14.5); Red Blood Count 3.75 M/uL (4.20-5.40); White Blood Count 8.32 K/ul (4.8-10.8)
[2025-01-05 23:08] LABS: BUN Creatinine Ratio 22.5 (10-20); Calcium 9.3 mg/dl (8.6-10.3); Creatinine Clr Calc Pharmacy 86.3 ml/min; Potassium 4.4 mmol/L (3.5-5.1)
[2025-01-05] MEDS: LORazepam 0.5 MG TAB PO PRN (23:48)
--- NOTE | 2025-01-06 00:19 | Ultrasound Report ---
Exam(s): US VENOUS LEFT LOWER EXTREMITY EXAM: US Duplex Left Lower Extremity Veins CLINICAL HISTORY: Pain and swelling. TECHNIQUE: Real-time duplex ultrasound scan of the left lower extremity veins integrating B-mode two-dimensional vascular structure, Doppler spectral analysis, color flow Doppler imaging and compression. COMPARISON: No relevant prior studies available. FINDINGS: Deep veins: Unremarkable. No DVT in the visualized common femoral, femoral, proximal deep femoral or popliteal veins. The veins demonstrate normal color flow, are normally compressible, with normal phasic flow and/or augmentation response. Superficial veins: No thrombus Soft tissues: No acute findings. No popliteal cyst. IMPRESSION: No evidence of DVT in the left lower extremity. Electronically signed by: Edgar Ibrahim MD 01/06/25 00:17 AM
--- NOTE | 2025-01-06 05:58 | Urology Consultation ---
<Statement entered by Dequan Kebede MD - 01/06/25 12:25> 64-year-old female with worsening loss of bladder control s/p recent spine surgery. This may be multifactorial including anesthesia effects, surgical effect, UTI. Agree with urine culture, treating if positive, assess PVR to ensure she is not in overflow incontinence. Would defer to orthopedics regarding additional postop care. Pending progress, she may be a candidate for anticholinergics if this is urgency or Bulkamid/urethral sling if this is related to stress incontinence. Date of Consultation January 06, 2025 Assessment & Plan (1) Urinary incontinence: Plan I evaluated the patient room 3831. From urologic perspective we recommend the following: As the patient has noted worsening loss of control of her bladder would recommend obtaining a urinalysis and culture to ensure UTI is not at play. I have ordered this, and if UTI is present and should be treated accordingly Would recommend bladder scanning the patient to ensure she is not retaining urine and having overflow incontinence. I discussed with the nursing staff that they should BladderScan the patient and if she has an excess of 200 cc of urine Castellanos catheter should be placed. I have directly discussed with the hospital service and noted that as the patient has new loss of bladder control following spine surgery they should notify the patient's spine surgeon, Dr. Quezada and they have indicated that they would do so Pending results of patient's CT scan of her lumbar spine and recommendation of Dr. Quezada, the patient may require Castellanos catheter on a temporary basis but this is yet to be determined. In the interim nursing staff notes that they are using a pure wick which should continue for the present time Additional recommendations will be forthcoming based on her clinical course as it unfolds History of Present Illness Reason for Consultation: Urinary incontinence Attending Physician: Kelton Quezada, DO History of Present Illness This is a 64-year-old female who underwent spine surgery on 01/01/2025. On this date Dr. Quezada performed removal of previous instrumentation with exploration of previous fusion at the L2-L3 levels. And decompression at the L1-L2 level. Urology was consulted as the patient was having urinary incontinence. The patient notes that she was able to ambulate following her surgery yesterday during one of her ambulation episodes/transfers she felt a pop in her back and since that time she has had decreasing control of bladder. She is not having issues with urinary retention but merely notes that she is having urinary incontinence. She denies any dysuria. She notes that she does continue to have control of her bladder. The patient notes that she has numbness of the left lower extremity which was present before her surgery. She does not report any saddle anesthesia. She notes that she is having difficulty walking due to pain going down both legs which has worsened since her surgery. She does not report any weakness of her legs. The medical service has ordered a stat lumbar spine CT scan which is pending at this time. Available labs were from 01/05/2022 in which her white blood cell count and platelet count were normal. Hemoglobin and hematocrit were 10.8 and 32.4. Chemistry profile showed sodium and potassium as well as the BUN and creatinine were normal on this date as well. At the time of my interview the patient was resting in the bedside chair and did not appear to be in any distress Allergies Allergy/AdvReac Type Severity Reaction Status Date / Time morphine Allergy Severe Dyspnea Verified 01/01/25 06:22 celecoxib [From Celebrex] Allergy Intermediate Swelling Verified 01/01/25 06:22 Sulfa (Sulfonamide Allergy Intermediate Rash Verified 01/01/25 06:22 Antibiotics) levofloxacin Allergy Mild Rash (with Verified 01/01/25 06:22 IV medication) Quinolones Allergy Mild Rash Verified 01/01/25 06:22 wheat Allergy Mild GI Verified 01/01/25 06:22 sensitivity diphenhydramine AdvReac Intermediate "KEEPS ME Verified 01/01/25 06:22 AWAKE INSTEAD OF MAKING ME SLEEPY" gabapentin AdvReac Intermediate Blurry Verified 01/01/25 06:22 Vision hydroxyzine AdvReac Intermediate HYPERACTIVE Verified 01/01/25 06:22 prednisone AdvReac Intermediate PSYCHOTIC Verified 01/01/25 06:22 COMPLICATIONS Home Medications Medication Instructions Recorded Confirmed Type vitamin B complex 1 cap PO QAM 07/17/18 01/01/25 History cholecalciferol (vitamin D3) 25 1,000 units PO QAM 06/01/20 01/01/25 History mcg (1,000 unit) capsule (Vitamin D3) acetaminophen 500 mg tablet 1,000 mg PO Q8H PRN Pain 04/24/23 01/01/25 History krill 1,000 mg-omega-3 170 mg-dha 1 cap PO QAM 10/06/23 01/01/25 History 50 mg-epa 80 [id number] capsule (krill oil) levothyroxine 50 mcg tablet 50 mcg PO UD 12/25/23 01/01/25 History loratadine 10 mg tablet (Claritin) 10 mg PO DAILY PRN Congestion 05/03/24 01/01/25 History naproxen 500 mg tablet 500 mg PO BID PRN pain #20 tabs 11/05/24 01/01/25 Rx aspirin 81 mg tablet,delayed 81 mg PO QAM 11/28/24 01/01/25 History release clonazepam 0.5 mg tablet 0.5 mg PO UD PRN Anxiety 11/28/24 01/01/25 History ferrous sulfate 325 mg (65 mg 325 mg PO UD 11/28/24 01/01/25 History iron) tablet (iron) zinc 1 tab PO DAILY 11/28/24 01/01/25 History magnesium See Rx Instructions .Route .COMPLEX 12/10/24 01/01/25 History oxycodone 5 mg tablet 5 mg PO Q6H PRN pain #30 tabs 01/01/25 Rx tramadol 50 mg tablet 50 mg PO Q6H PRN pain, moderate 01/01/25 Rx #30 tabs Patient History Medical History TIA (transient ischemic attack) Possible 06/05/24 Patient states this was rule out; no hx of CVA; currently on ASA daily Hx of tinnitus Occasional Hx of sinus tachycardia "happens about 1 week after surgeries" Postlaminectomy syndrome Hx of migraines "seasonal/weather related" History of fatty infiltration of liver Dyslipidemia Prediabetes Per PCP records Hypothyroidism History of COVID-19 06/2022- fever, cough, resolved 06/2024- resolved Morbid obesity with BMI of 50.0-59.9, adult Urinary incontinence Osteoarthritis Chronic back pain RLE RADICULOPATHY; LE NEUROPATHY Hx of sarcoidosis Located to lung per patient No recent issues, single flare 2013 Anxiety Surgical History History of total right hip arthroplasty 2023, [facility] [place] of total left hip arthroplasty 2023, [facility] [place] History of total left knee replacement Hx of arthroscopy of left knee incorrect, had full replacement Hx of spinal surgery 2013, lumbar L3-4, L4-5, fusions 2018, lumbar L2-3, fusion History of right knee joint replacement 2019 H/O bilateral salpingo-oophorectomy History of carpal tunnel release rt/lt History of bilateral tubal ligation done w/last [place] teeth removed History of myringotomy History of esophagogastroduodenoscopy (EGD) History of breast biopsy rt breast, benign History of section X4, last one had bilateral tubal ligation History of colonoscopy History of appendectomy History of bronchoscopy TO DX SARCODOSIS 2012 S/P lumbar spinal fusion duplicate S/P cervical spinal fusion ~2007, C4-C6; ROM "is fine, no limitations" S/P partial hysterectomy Family History Brother Diabetes Colorectal cancer Mother Diabetes Stomach cancer Sarcoidosis Lymphoma Father Coronary heart disease Other Cancer Heart disease Hypertension No family history of adverse response to anesthesia No family history of bleeding disorder Social History Smoking Status: Never smoker Second Hand Exposure: No; Do You Dip or Chew Tobacco: No; Tobacco Cessation Education Requested by Patient: No Hx Alcohol Use: Yes Hx Substance Use: No Preferred Language: Slovak Communication Ability: Effective Visual Impairment: No Limitations Clinical Liaison Required: No Beliefs That Will Affect Care: None marital status: Current Living Situation: Spouse Current Living Situation Comment: Also son and niece intermittently. Other Information That Helps Us Care for You: No Feels Safe at Home: Yes Safety Concerns: Feels Safe At This Time Assistive Devices: Cane, Walker and Wheelchair Review of Systems Review of Systems: All systems reviewed & are unremarkable except as noted in HPI & below Physical Exam Constitutional: WD/WN, vitals as above Eyes: no conjunctival abnormality ENMT: Ears: no hearing impairment Neck: trachea midline Respiratory: normal respiratory effort; no respiratory distress and no labored breathing Cardiovascular: Rate/Rhythm: regular rate and regular rhythm Gastrointestinal (Abdomen): Soft, and nontender to palpation Musculoskeletal: No gross orthopedic abnormalities of the lower extremities Skin: no rashes Neurologic: Patient is able to move all 4 extremities and follow simple commands without noted focal deficits In the lower extremities the patient is able to dorsiflex and plantarflex both feet through full range of motion without noted weakness. She can also extend her great toes. Patient can flex and extend her knees. Psychiatric: A+Ox3, euthymic affect Genitourinary: No CVA tenderness with percussion bilaterally PG Care Time/CCT Total # of Minutes Spent Total Time Spent with Patient: Total time spent is greater than 50% in coordination of care (as documented) at patient's floor/unit and/or counseling patient: Coding Level of Care Code 16361 IN/OBS CONSULT LVL 3,45M Diagnoses Urinary incontinence N39.498 Urinary Incontinence type: other incontinence (1) Urinary incontinence Urinary Incontinence type: other incontinence Qualified Code(s): N39.498 - Other specified urinary incontinence
--- NOTE | 2025-01-06 06:33 | CT Scan Report ---
EXAM: CT lumbar spine wo con CLINICAL HISTORY: loss of bladder control and increased pain TECHNIQUE: CT scan of the lumbar spine was performed without the administration of intravenous contrast. Contiguous [specify slice thickness] axial images were obtained from the upper lumbar spine to the sacrum. Coronal and sagittal reformatted images were also reviewed. One of the following dose reduction techniques was utilized for this exam. Automated exposure control, adjustment of the mA and/or kV according to patient size, and use of iterative reconstruction. COMPARISON: compared to 10/26/2022 FINDINGS: Vertebrae: Status post transpedicular internal fixation with rods and screws from L1 down to L3 vertebra with intact hardware devices. Evidence of posterior laminectomy from L1-L2 down to L4-L5 levels, exerting posterior decompression effect with widened neural canal. No Evidence of loosening. Diffuse osteopenic texture. Spondylotic changes in the form of anterior osteophytes. No evidence of acute fracture or dislocation. Significant soft tissue, muscle and subcutaneous tissue haziness with mild emphysematous changes at the operative bed suggesting an inflammatory process. Intervertebral Discs: Inserted disc cages from L1-L2 level down to L4-L5 level. Facet Joints: Advanced fact joints arthropathy with cortical sclerosis and irregularities. Bone rarefaction, sclerosis with irregularities suggesting sequel of a previous inflammatory process VS operative sequel. Sacroiliac joints; Bilateral sacroiliitis with cortical sclerosis and vacuum sign (grade III) Neural Foramina: No evidence of foraminal narrowing or nerve root compression. Paraspinal Soft Tissues: The paraspinal soft tissues are normal in appearance without evidence of mass or abnormal fluid collection. Additional Findings: No other significant findings are noted in the visualized soft tissue structures or bony elements. IMPRESSION: 1. Status post transpedicular internal fixation with rods and screws from L1 down to L3 vertebra in good alignment.(stable) 2. Inserted disc cages from L1-L2 level down to L4-L5 level.(stable) 3. Evidence of posterior laminectomy from L1-L2 down to L4-L5 levels, exerting posterior decompression effect with widened neural canal. (stable) 4. Significant soft tissue, muscle, and subcutaneous tissue haziness with mild emphysematous changes at the operative bed suggesting an inflammatory process, for further post-contrast assessment. (new findings) 5. Advanced fact joints arthropathy. 6. Bone rarefaction, sclerosis with irregularities suggesting sequel of a previous inflammatory process VS operative sequel. 7. Bilateral sacroiliitis (grade III) 8. Progressive radiological findings. Electronically signed by Tad Tsai 01-06-2025 06:32 AM
[2025-01-06 07:10] VITALS: TEMP 98.2; O2SAT 97
[2025-01-06 07:34] VITALS: BP 114/71; PULSE 86; RESP 18
[2025-01-06 09:54] LABS: Appearance Urine Clear (Clear); Bilirubin Urine Negative (Negative); Blood Urine Negative (Negative); Color Urine Yellow; Glucose Urine UA Negative (Negative); Ketones Urine Negative (Negative); Leukocyte Esterase Urine Negative (Negative); Nitrite Urine Negative (Negative); Protein Urine Negative (Negative); Specific Gravity Urine 1.013 (1.000-1.030); Urobilinogen Urine Negative (Negative); pH Urine 6.5 (4.5-7.5)
== END 2025-01-06 15:15 | DRG 402 ==
LOC: ASU 06:17 → 3N 09:46